=== PATIENT | male | born 1940 | race Caucasian/White ===

== ENCOUNTER → 2017-01-05 | Outpatient (CLI) | payer OTHER ==
[~2017-01-05] MED LIST: ALLO100T PO; ANT25 PO; BUME1TAB PO; BUME2TAB3 PO; CARV6.252 PO; CMD5 PO; CRD200 PO; CRG625 PO; FLUT0.0529 NAE; FLUT0.15 NAE; FRS/40 PO; GABA-112 PO; INSDGIPEN SC; INSUINJ14 SC; INSUINJ4 SQ; IPRA0.06 NAE; ISOS60TA25 PO; LEVO75TA5 PO; METO2.5T PO; NTRGSL/4 UT; NVLGI/PEN SC; POTA20TA16 PO; PRLSR20 PO; RCL25 PO; SIMV40TA4 PO; SPIR25TA PO; SPR25 PO; TRAM-10 PO; TRAZ50TA35 PO; WARF5TAB90 PO
[2017-01-05 13:14] LABS: HEMATOCRIT 48.1 % (42-52); MEAN CELL VOLUME 90.4 fL (80-100); MEAN CORPUSCULAR HEMOGLOBIN 29.3 pg (25-34); MEAN CORPUSCULAR HGB CONC 32.4 g/dl (32-36); RED BLOOD COUNT 5.32 M/uL (4.7-6.1); WHITE BLOOD COUNT 5.16 K/uL (4.8-10.8)
[2017-01-05 13:18] LABS: URINE APPEARANCE CLEAR (CLEAR); URINE BILIRUBIN NEG (NEG); URINE COLOR YELLOW; URINE NITRITE NEG (NEG); URINE SPECIFIC GRAVITY 1.003 (1.000-1.030); UROBILINOGEN NEG (NEG)
[2017-01-05 13:27] LABS: ESTIMATED AVERAGE GLUCOSE 154 mg/dl; HA1C FLAG Normal (Normal); MANUAL MICROSCOPIC REQUIRED? NO; REVIEW REQ? NO
[2017-01-05 13:31] LABS: BLOOD UREA NITROGEN 52 mg/dl (7-18); BUN/CREATININE RATIO 28.9 (10-20); CALCIUM 9.4 mg/dl (8.5-10.1); CARBON DIOXIDE 34 mmol/L (21-32); CHLORIDE 100 mmol/L (98-107); GLUCOSE 96 mg/dl (70-99); POTASSIUM 2.9 mmol/L (3.5-5.1); SODIUM 142 mmol/L (136-145)
[2017-01-05 13:33] LABS: PHOSPHORUS 2.4 mg/dl (2.5-4.9)
[2017-01-05 13:59] LABS: MEAN PLATELET VOLUME 10.1 fL (7.4-10.4); PLATELET COUNT 95 K/uL (130-400)
== END | disposition home or self-care (01) ==
LOC: C.LAB1850 11:30
PROVIDERS: ATTEND Internal Medicine Nephrology
DX: I50.22 Chronic systolic (congestive) heart failure (principal); E11.65 Type 2 diabetes mellitus with hyperglycemia; N18.3 Chronic kidney disease, stage 3 (moderate); E11.22 Type 2 diabetes mellitus with diabetic chronic kidney disease

== ENCOUNTER → 2017-01-12 | Outpatient (CLI) | payer OTHER ==
[2017-01-12 16:09] LABS: BLOOD UREA NITROGEN 51 mg/dl (7-18); BUN/CREATININE RATIO 24.3 (10-20); CALCIUM 9.1 mg/dl (8.5-10.1); CARBON DIOXIDE 35 mmol/L (21-32); CHLORIDE 97 mmol/L (98-107); GLUCOSE 176 mg/dl (70-99); MAGNESIUM 2.4 mg/dl (1.8-2.4); POTASSIUM 3.5 mmol/L (3.5-5.1); SODIUM 139 mmol/L (136-145)
== END | disposition home or self-care (01) ==
LOC: C.LAB1850 14:24
PROVIDERS: ATTEND Internal Medicine Nephrology
DX: E87.6 Hypokalemia (principal)

== ENCOUNTER → 2017-01-30 | Outpatient (CLI) | payer OTHER ==
[~2017-01-30] MED LIST changes: +AMIO200T4 PO; +AZIT-57 PO; +CALC0.2510 PO; +CEFD1CAP14 PO; +MECL1TAB42 PO; +POTA1POW PO; +PRDXLUD PO; +SIMV40TA2 PO
[2017-01-30 12:48] LABS: BLOOD UREA NITROGEN 56 mg/dl (7-18); BUN/CREATININE RATIO 25.4 (10-20); CALCIUM 9.1 mg/dl (8.5-10.1); CARBON DIOXIDE 35 mmol/L (21-32); CHLORIDE 102 mmol/L (98-107); GLUCOSE 81 mg/dl (70-99); POTASSIUM 3.2 mmol/L (3.5-5.1); SODIUM 143 mmol/L (136-145)
== END | disposition home or self-care (01) ==
LOC: C.LAB1850 10:36
PROVIDERS: ATTEND Physician Assistant
DX: I50.22 Chronic systolic (congestive) heart failure (principal); E11.65 Type 2 diabetes mellitus with hyperglycemia; N18.3 Chronic kidney disease, stage 3 (moderate)

== ENCOUNTER 2017-02-01 15:20 | Inpatient (IN) | payer OTHER ==
[~2017-02-01] VITALS: Ht 172.7 cm; Wt 91.4 kg
[~2017-02-01 15:20] MED LIST changes: -AMIO200T4 PO; -ANT25 PO; -AZIT-57 PO; -BUME2TAB3 PO; -CALC0.2510 PO; -CARV6.252 PO; -CEFD1CAP14 PO; -CMD5 PO; -FLUT0.15 NAE; -FRS/40 PO; -GABA-112 PO; -INSDGIPEN SC; -IPRA0.06 NAE; -ISOS60TA25 PO; -LEVO75TA5 PO; -MECL1TAB42 PO; -METO2.5T PO; -NTRGSL/4 UT; -NVLGI/PEN SC; -POTA1POW PO; -PRDXLUD PO; -RCL25 PO; -SIMV40TA2 PO; -SIMV40TA4 PO; -SPIR25TA PO; -SPR25 PO; -TRAM-10 PO; -TRAZ50TA35 PO
--- NOTE | 2017-02-01 15:52 | EMERGENCY ROOM VISIT NOTE ---
History Report prepared by Stephanie: Nena Sanabria Under the Supervision of: Dr. Rigoberto Ramirez M.D. First contact with patient: 15:30 Chief Complaint: SHORTNESS OF BREATH Stated Complaint: SOB,PT HAS PACEMAKER History of Present Illness The patient is a 76 year old male who presents to the Emergency Room with complaints of worsening shortness of breath for the past 4 days. The patient does not speak any Mongolian and the history is obtained from his daughter who translated at bedside. He has been on Lasix and Potassium for the past 4 days. Today his shortness of breath worsened. He reports swelling to his legs bilaterally, left greater than right. His abdomen feels bloated and swollen. He reports LLQ abdominal pain and chest pain. He states that his insides feel shaky. The patient rates his pain as an 8/10 in severity. He is on Coumadin. He denies cough or fever. He reports left-sided throat pain that has been going on for a long time. Source of History: patient, family (daughter), spouse/significant other Onset: 4 days ago Position: chest (respiratory ) Symptom Intensity: 8/10 Quality: other (shortness of breath) Timing: worsening Associated Symptoms: + abdominal pain, + chest pain, + sorethroat, No cough , No fevers Note: Pt notes bilateral leg swelling. Review of Systems See HPI for pertinent positives & negatives. A total of 10 systems reviewed and were otherwise negative. 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 Nurse's notes were reviewed and I agree with. Family History Diabetes mellitus FH: cancer Heart disease Hypertension Kidney disease Kidney stones Social History Smoking Status: Never Smoker Alcohol Use: none Drug Use: none Marital Status: Housing Status: lives with family Occupation Status: retired Current/Historical Medications Scheduled Allopurinol (Zyloprim), 100 MG PO BID Bumetanide (Bumex), 2 MG PO DAILY Carvedilol (Coreg), 2 TAB PO BID Fluticasone Propionate (Nasal) (Flonase Allergy Relief), 1 SPRAYS ALEX DAILY Furosemide (Lasix), 40 MG PO DAILY Insulin Aspart (Novolog Flexpen), 8 UNITS SC WM Insulin Glargine (Lantus Solostar), 15 UNITS SC HS Ipratropium [place] (Nasal) (Ipratropium [place]), 2 SPRAYS ALEX BID Isosorbide Mononitrate Ext Rel (Imdur Ext Rel), 60 MG PO QAM Levothyroxine Sodium (Levothyroxine Sodium), 75 MCG PO DAILY Metolazone (Zaroxolyn), 2.5 MG PO DAILY Potassium Ext Rel (Klor-Con), 60 MEQ PO DAILY Simvastatin (Zocor), 40 MG PO QPM Scheduled PRN Nitroglycerin (Nitrostat), 0.4 MG UT UD PRN for Chest Pain Allergies Coded Allergies: No Known Allergies (Verified , 08/30/16) Physical Exam Vital Signs Date Time Temp Pulse Resp B/P Pulse Ox O2 Delivery O2 Flow Rate FiO2 02/01/17 17:10 93 Nasal Cannula 2.5 02/01/17 17:08 60 20 110/71 79 Room Air 02/01/17 15:24 36.5 68 16 106/68 91 Room Air Physical Exam General: Well developed well nourished non-ill appearing older male in no acute distress, breathing comfortably on room air. Normal speech HEENT: Normal cephalic atraumatic. Pupils are equal round and reactive to light. Sclerae anicteric. Extraocular movements are intact. Oropharynx is pink with moist mucous membranes. No swelling of the mouth lips or tongue. Neck: Supple with a midline trachea. No meningeal signs or stiffness, no JVD or bruits. No Stridor. Chest: Clear to auscultation bilaterally. No wheezes or rhonchi. No increased work of breathing. Heart: regular rate and rhythm. Abdomen: Soft nontender, nondistended without rebound guarding or rigidity. Extremities: He has bilateral pitting edema of the lower extremities, left greater than right. No cyanosis clubbing. No calf tenderness. Spine/Back. Non tender to palpation. No CVA tenderness Skin: Good turgor without rashes. Neurologic exam: Cranial nerves two through 12 are intact. Motor and sensation are intact and symmetrical throughout. Medical Decision & Procedures ER Provider Diagnostic Interpretation: Radiology results as stated below per my review and radiologist interpretation: CHEST ONE VIEW PORTABLE HISTORY: Short of breath. CHEST PAIN COMPARISON: Chest 09/02/2016. FINDINGS: The heart remains enlarged. Mild pulmonary edema and trace bilateral pleural effusions are again noted. Patchy bibasilar densities may be due to the layering pleural fluid or areas of consolidation. There is a left-sided pacemaker/defibrillator. No pneumothorax. IMPRESSION: Similar appearance to the cardiomegaly, mild interstitial pulmonary edema, trace bilateral pleural effusions. Electronically signed by: Robert Gamez M.D. 02/01/2017 4:21 PM Dictated Date/Time: 02/01/2017 4:20 PM Laboratory Results 02/01/17 16:35 Red Blood Count 4.93, Mean Corpuscular Volume 88.6, Mean Corpuscular Hemoglobin 28.8, Mean Corpuscular Hemoglobin Concent 32.5, Mean Platelet Volume 9.1, Neutrophils (%) (Auto) 66.0, Lymphocytes (%) (Auto) 16.6, Monocytes (%) (Auto) 14.3, Eosinophils (%) (Auto) 2.9, Basophils (%) (Auto) 0.2, Neutrophils # (Auto ) 3.19, Lymphocytes # (Auto) 0.80, Monocytes # (Auto) 0.69, Eosinophils # (Auto ) 0.14, Basophils # (Auto) 0.01 02/01/17 16:35 Test 02/01/17 16:35 02/01/17 16:43 White Blood Count 4.83 K/uL (4.8-10.8) Red Blood Count 4.93 M/uL (4.7-6.1) Hemoglobin 14.2 g/dL (14.0-18.0) Hematocrit 43.7 % (42-52) Mean Corpuscular Volume 88.6 fL (80-100) Mean Corpuscular Hemoglobin 28.8 pg (25-34) Mean Corpuscular Hemoglobin Concent 32.5 g/dl (32-36) Platelet Count 93 K/uL (130-400) Mean Platelet Volume 9.1 fL (7.4-10.4) Neutrophils (%) (Auto) 66.0 % Lymphocytes (%) (Auto) 16.6 % Monocytes (%) (Auto) 14.3 % Eosinophils (%) (Auto) 2.9 % Basophils (%) (Auto) 0.2 % Neutrophils # (Auto) 3.19 K/uL (1.4-6.5) Lymphocytes # (Auto) 0.80 K/uL (1.2-3.4) Monocytes # (Auto) 0.69 K/uL (0.11-0.59) Eosinophils # (Auto) 0.14 K/uL (0-0.5) Basophils # (Auto) 0.01 K/uL (0-0.2) RDW Standard Deviation 54.5 fL (36.4-46.3) RDW Coefficient of Variation 16.8 % (11.5-14.5) Immature Granulocyte % (Auto) 0.0 % Immature Granulocyte # (Auto) 0.00 K/uL (0.00-0.02) Prothrombin Time 29.7 SECONDS (9.0-12.0) Prothromb Time International Ratio 2.7 (0.9-1.1) Activated Partial Thromboplast Time 32.3 SECONDS (21.0-31.0) Partial Thromboplastin Ratio 1.2 Anion Gap 7.0 mmol/L (3-11) Est Creatinine Clear Calc Drug Dose 33.6 ml/min Estimated GFR () 33.0 Estimated GFR (Non- 28.5 BUN/Creatinine Ratio 21.8 (10-20) Calcium Level 8.8 mg/dl (8.5-10.1) Total Bilirubin 1.8 mg/dl (0.2-1) Direct Bilirubin 0.6 mg/dl (0-0.2) Aspartate Amino Transf (AST/SGOT) 39 U/L (15-37) Alanine Aminotransferase (ALT/SGPT) 42 U/L (12-78) Alkaline Phosphatase 95 U/L (45-117) Total Creatine Kinase 308 U/L (39-308) Creatine Kinase MB 3.5 ng/ml (0.5-3.6) Creatine Kinase MB Ratio 1.1 (0-3.0) Total Protein 6.4 gm/dl (6.4-8.2) Albumin 2.9 gm/dl (3.4-5.0) Lipase 189 U/L (73-393) Thyroid Stimulating Hormone (TSH) 1.070 uIu/ml (0.300-4.500) Bedside Troponin I 0.040 ng/ml (0-0.045) ZX-Fni-H-Type Natriuretic Peptide 3062 pg/ml (0-900) Laboratory studies as stated above per my review. Medications Administered ECG Indication: SOB/dyspnea Rate (beats per minute): 66 Rhythm: other (ventricular paced) Findings: PVC (frequent), no acute ischemic change Comparison ECG Date: 09/02/2016 Change: no significant change ED Course 1531: Past medical records reviewed. The patient was evaluated in room B5, and a complete history and physical examination were performed. 1633: I reassessed the patient and he is comfortable and getting his blood work now. 1729: I reassessed the patient at this time. He is doing well. I discussed the results and treatment plan with the patient's daughter. I answered all pertaining questions that she had. She expressed understanding and verbalized agreement. 1743: I spoke with Dr. Dobson. We discussed the patients results and treatment plan. The patient will be evaluated by the [facility] for further management. Medical Decision Differential diagnoses includes CHF, acute coronary syndrome, renal failure, electrolyte or metabolic abnormality, DVT/PE. This patient comes in as described above. He was placed in room B5. Here for treatment and evaluation of shortness of breath. He has also had lower extremity edema and they've increased his diuretics recently. He has have renal insufficiency related to this. He looks well on exam. he does have lower extremity edema left greater than right. He is on blood thinners as well apparently with Coumadin. IV access established, chest x-ray, EKG , and multiple blood tests was obtained. EKG shows a paced rhythm. Chest x-ray shows chronic congestive heart failure changes. EKG shows a paced rhythm but there is no acute ischemic changes. There is no elevation of troponin. There is no acute electrode or metabolic abnormalities. He does have chronic renal insufficiency. He has been taking multiple diuretics including Lasix and Bumex and Zaroxolyn. Despite this, he has not been getting better. Additionally I think that the medications need to be adjusted and have further treatment for his congestive heart failure. I have consulted Dr. Dobson, who saw the patient, in the ER and will admit him for these measures Consults Time Called: 1739 Consulting Physician: Dr. Dobson Returned Call: [phone] Dobson. We discussed the patients results and treatment plan. The patient will be evaluated by the [facility] for further management. Impression Primary Impression: CHF (congestive heart failure) Scribe Attestation The scribe's documentation has been prepared under my direction and personally reviewed by me in its entirety. I confirm that the note above accurately reflects all work, treatment, procedures, and medical decision making performed by me. Departure Information Dispostion Being Evaluated By Hospitalist Referrals Pro,Noel Palomo M.D. (PCP) Patient Instructions My [facility] Problem Qualifiers Primary Impression: CHF (congestive heart failure) Congestive heart failure type: unspecified congestive heart failure type Congestive heart failure chronicity: unspecified congestive heart failure chronicity Qualified Codes: I50.9 - Heart failure, unspecified
[2017-02-01] MEDS ORDERED: CARV6.252 PO (15:57)
[2017-02-01] MEDS ORDERED: BUME2TAB3 PO (15:57)
[2017-02-01] MEDS ORDERED: FRS/40 PO (15:57)
[2017-02-01] MEDS ORDERED: FLUT0.15 NAE (15:57)
[2017-02-01] MEDS ORDERED: METO2.5T PO (15:57)
--- NOTE | 2017-02-01 16:24 | DIAGNOSTIC IMAGING REPORT ---
CHEST ONE VIEW PORTABLE HISTORY: Short of breath. CHEST PAIN COMPARISON: Chest 09/02/2016. FINDINGS: The heart remains enlarged. Mild pulmonary edema and trace bilateral pleural effusions are again noted. Patchy bibasilar densities may be due to the layering pleural fluid or areas of consolidation. There is a left-sided pacemaker/defibrillator. No pneumothorax. IMPRESSION: Similar appearance to the cardiomegaly, mild interstitial pulmonary edema, trace bilateral pleural effusions. Electronically signed by: Robert Gamez M.D. 02/01/2017 4:21 PM Dictated Date/Time: 02/01/2017 4:20 PM
[2017-02-01 17:01] LABS: HEMATOCRIT 43.7 % (42-52); INR 2.7 (0.9-1.1); MEAN CELL VOLUME 88.6 fL (80-100); MEAN CORPUSCULAR HEMOGLOBIN 28.8 pg (25-34); MEAN CORPUSCULAR HGB CONC 32.5 g/dl (32-36); PARTIAL THROMBOPLASTIN RATIO 1.2; PROTHROMBIN TIME (PATIENT) 29.7 SECONDS (9.0-12.0); RED BLOOD COUNT 4.93 M/uL (4.7-6.1); WHITE BLOOD COUNT 4.83 K/uL (4.8-10.8)
[2017-02-01 17:04] LABS: POINT OF CARE TROPONIN I 0.04 ng/ml (0-0.045)
[2017-02-01 17:12] LABS: BASO % 0.2 %; BASO ABS # 0.01 K/uL (0-0.2); BUN/CREATININE RATIO 21.8 (10-20); CALCIUM 8.8 mg/dl (8.5-10.1); COMPLETE YES; CREATININE 2.2 mg/dl (0.60-1.40); EOS % 2.9 %; LYMPH % 16.6 %; MEAN PLATELET VOLUME 9.1 fL (7.4-10.4); MONO % 14.3 %; PLATELET COUNT 93 K/uL (130-400); POTASSIUM 3.3 mmol/L (3.5-5.1)
[2017-02-01 17:24] LABS: CKMB/CK RATIO 1.1 (0-3.0); THYROID STIMULATING HORMONE 1.07 uIu/ml (0.300-4.500)
[2017-02-01] MEDS ORDERED: NITROGLYCERIN 0.4 MG SL PER TAB CHARGE UT PRN (18:00)
[2017-02-01] MEDS ORDERED: PREMIXED WATER IV STA (18:07)
[2017-02-01] MEDS ORDERED: WTR IV STA (18:07)
[2017-02-01] MEDS ORDERED: POTASSIUM CHLR IV STA (18:07)
[2017-02-01] MEDS ORDERED: MAGNESIUM SULFATE 1GM / D5W 1 GM in PREMIXED IN D5W 100 ML IV ONE (18:15)
[2017-02-01] MEDS ORDERED: MAGNESIUM HYDROXIDE SUSP 30 ML UDC PO PRN (18:15)
[2017-02-01] MEDS ORDERED: POLYETHYLENE (MIRALAX) 17 GM PACK PO PRN (18:15)
[2017-02-01] MEDS ORDERED: NITROGLYCERIN 0.4 MG SL PER TAB CHARGE SL PRN (18:15)
[2017-02-01] MEDS ORDERED: ONDANSETRON INJ 2 MG/ML 2 ML VIAL IV PRN (18:15)
[2017-02-01] MEDS ORDERED: ALUMINUM/MAGNESIUM/SIMETH (MAALOX MAX) 30 ML UDC PO PRN (18:15)
[2017-02-01] MEDS ORDERED: POTASSIUM CHLORIDE 10 MEQ / 100ML WTR IV ONE (18:24)
[2017-02-01] MEDS ORDERED: MAGNESIUM SULFATE 1GM / D5W 1 GM BAG ONE (18:24)
--- NOTE | 2017-02-01 18:58 | HISTORY & PHYSICAL EXAMINATION ---
DATE OF ADMISSION: 02/01/2017 CHIEF COMPLAINT: Shortness of breath. ADMITTING DIAGNOSIS: Acute systolic heart failure. HISTORY OF PRESENT ILLNESS: Mr. Davidson is a 76-year-old male who suffers from chronic systolic heart failure with an EF of 20%-25%. The patient was seen at [facility] ago where he was given Lasix, sliding scale in addition to his significant Bumex and metolazone dosing. The patient did not improve, comes in with chest pain, shortness of breath, orthopnea and abdominal girth fullness. He feels his weight is up 5 pounds despite escalation of his diuretics at home. With evaluation in the ER, his exam consistent with acute on chronic systolic heart failure. PAST MEDICAL HISTORY: As above with coronary stents, diabetes, GERD, hypertension, ventral abdominal hernia, permanent pacemaker, previous renal stones and hypothyroidism. MEDICATIONS: Bumex 3 mg a day, Zaroxolyn 2.5 two times a week, amiodarone 200 a day, Coreg 6.25 b.i.d., allopurinol 100 b.i.d., Flonase as needed, insulin regular 8 units with meals, Lantus 15 at bedtime, isosorbide mononitrate extended release 60 mg a day, Synthroid 75 mcg a day, potassium 40 mEq b.i.d., warfarin 5 a day, calcitriol 0.25 once a day. SOCIAL HISTORY: Reportedly, the patient does not smoke now, he had smoked once in the distant past but he is [place] and his language is difficult. He does not drink alcohol. FAMILY HISTORY: Positive for diabetes, cancer, heart disease and hypertension. REVIEW OF SYSTEMS: Also positive for constipation with hard stools, decreased urinary output of dark urine. Otherwise, no other symptoms. Ten systems were reviewed and are negative unless listed in this document. PHYSICAL EXAMINATION: VITAL SIGNS: Temperature 36.5, pulse 60, respirations 20, BP 150/71, O2 sat was 79 on room air, he is 93 on 2 liters. HEENT: PERRL, EOMI. Oropharynx clear. NECK: Shows JVD with 4-4 cm with positive HJR. Trachea is midline. HEART: Distant, regular. Systolic murmur at the right upper sternal boarder. He has muffled heart tones. LUNGS: Have bibasilar crackles half the way up with reasonable air movement. ABDOMEN: Normoactive bowel sounds, soft. He is minorly uncomfortable to the left side which may be his constipation. He has bruised in his abdomen from his insulin injections. EXTREMITIES: With 2+ edema to the knees. 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 His cranial nerves are intact. Upper and lower extremities strength is 5/5 and equal bilaterally. SKIN: With bruises. LABORATORY DATA: White count of 4.8, H\T\H 14 and 43, platelet count 93. BUN and creatinine are 48 and 2.2, glucose 146, potassium 3.3, magnesium was not checked. Bilirubin is elevated at 1.8, but it is slightly always elevated and INR 2.7. His chest x-ray shows cardiomegaly, interstitial pulmonary edema and pacemaker present. Trace pleural effusions. His EKG is paced rhythm. ASSESSMENT: This 76-year-old male with acute on chronic systolic heart failure likely from dietary noncompliance as per the office notes of the [facility]. PLAN: The patient will be in our telemetry unit. We will increase Bumex at 2 mg IV b.i.d. with 1 dose of Zaroxolyn in the morning, maintaining amiodarone 200 and Coreg a 6.25. We will employ daily weights and a low sodium diet with cardiology consultation. His thrombocytopenia prevents chemical prevention for deep venous thrombosis. Therefore, we will use sequential compression devices. Regarding his diabetes, he will be kept on his usual regimen with a diabetic diet and have a loose sliding scale to assist if his glucoses go high. Regarding his anticoagulation, I am assuming this is for atrial fibrillation or could be for his cardiomyopathy, warfarin will be maintained at 5 and INR is to be followed. For his constipation, he will be offered MiraLax p.r.n. and Senokot scheduled. The patient is a full code.
[2017-02-01] MEDS ORDERED: GLUCAGON FOR INJ 1 MG VIAL SQ PRN (19:30)
[2017-02-01] MEDS ORDERED: GLUCOSE 10 TABS/TUBE PO PRN (19:30)
[2017-02-01] MEDS ORDERED: DEXTROSE 50% 50 ML SYR IV PRN (19:30)
[2017-02-01] MEDS ORDERED: GLUCOSE 40% GEL 15 GM TUBE PO PRN (19:30)
[2017-02-01 20:30] VITALS: BP 107/76; PULSE 67; TEMP 36.4; O2SAT 97
[2017-02-01 20:50] VITALS: BP 107/76; PULSE 67; TEMP 36.4; O2SAT 97; Ht 172.7 cm; Wt 91.4 kg
[2017-02-01] MEDS ORDERED: HEPARIN SOD 5000 UNIT/0.5 ML CARP SQ SCH (21:00)
[2017-02-01] MEDS: SENNA 8.6 MG TAB PO SCH (21:37)
[2017-02-01] MEDS: POTASSIUM CHLORIDE 20 MEQ TABCR PO SCH (21:38)
[2017-02-01] MEDS: SIMVASTATIN 40 MG TAB PO SCH (21:38)
[2017-02-01] MEDS: ALLOPURINOL 100 MG TAB PO SCH (21:38)
[2017-02-01 21:41] VITALS: BP 105/58; PULSE 60
[2017-02-01] MEDS: INSULIN GLARGINE SOLOSTAR 100 UNITS/ML 3 ML PEN SC SCH (21:43)
[2017-02-01] MEDS: CARVEDILOL 12.5 MG TAB PO SCH (21:43)
[2017-02-01] MEDS: INSULIN ASPART 100 UNITS/ML 3 ML PEN SC SCH (21:43)
[2017-02-01] MEDS: IPRATROPIUM BROMIDE NASAL SPRAY 0.06% 15ML NAE SCH (21:44)
[2017-02-02] VITALS (11 sets, daily range): BP systolic 93–117; BP diastolic 54–80; PULSE 58–77; TEMP 36.5–37.1; O2SAT 90–98
[2017-02-02] MEDS: LEVOTHYROXINE 75 MCG TAB PO SCH (05:48)
[2017-02-02] MEDS ORDERED: MoRPHine SULFATE 4 MG/ML 1 ML CARP\\VIAL IV STA (05:55)
[2017-02-02] MEDS ORDERED: MoRPHine SULFATE 4 MG/ML 1 ML CARP\\VIAL ONE (06:03)
[2017-02-02] MEDS: INSULIN ASPART 100 UNITS/ML 3 ML PEN SC SCH ×7 (06:30→20:57)
[2017-02-02] MEDS: SPIRONOLACTONE 25 MG TAB PO SCH (07:50)
[2017-02-02] MEDS: CARVEDILOL 12.5 MG TAB PO SCH ×2 (07:51→20:56)
[2017-02-02] MEDS: ISOSORBIDE MONONITRATE 60 MG TABCR PO SCH (07:51)
[2017-02-02] MEDS: POTASSIUM CHLORIDE 20 MEQ TABCR PO SCH ×2 (07:52→21:25)
[2017-02-02] MEDS: ALLOPURINOL 100 MG TAB PO SCH ×2 (07:53→21:24)
[2017-02-02] MEDS: CALCITRIOL 0.25 MCG CAP PO SCH (07:53)
[2017-02-02] MEDS: SENNA 8.6 MG TAB PO SCH ×2 (07:53→21:26)
[2017-02-02] MEDS: IPRATROPIUM BROMIDE NASAL SPRAY 0.06% 15ML NAE SCH ×2 (07:54→20:56)
[2017-02-02] MEDS: FLUTICASONE PROPIONATE NA SPR 16 GM BTL NAE SCH (07:55)
[2017-02-02] MEDS ORDERED: METOLAZONE 2.5 MG TAB PO SCH (08:00)
[2017-02-02] MEDS ORDERED: PNEUMOCOCCAL POLYSACCHARIDES 25 MCG/0.5 ML VIAL/SYR IM. ONE (09:00)
[2017-02-02] MEDS ORDERED: POTASSIUM CHLORIDE 20 MEQ TABCR PO SCH (09:00)
[2017-02-02] MEDS ORDERED: PNEUMOCOCCAL ADMINISTRATION CHARGE ONE (09:00)
[2017-02-02] MEDS: BUMETANIDE IV 2 MG in SYRINGE 0 ML IV SCH ×2 (09:59→17:46)
--- NOTE | 2017-02-02 10:10 | Clinical Documentation Query ---
JAMES Brewer : CLINICAL DOCUMENTATION QUERY Patient is a 76 year old male admitted for evaluation and treatment of acute on chronic systolic CHF. Admission BUN, creatinine, and estimated GFR were 51 mg/dl, 2.10 mg/dl, and 30 ml/min. Estimated GFR range from 08/15/16 to present of 21-39 ml/min. No mention made of these abnormalities in serum chemistries. Please clarify as clinically appropriate. Thank you In your clinical opinion is this patient being managed for: ( X ) Chronic kidney disease, stage 3-4 ( ) Other explanation of clinical findings (Please Explain) ( ) Unable to determine (Please Define) ( ) Need to Discuss ( ) Not Agree The medical record reflects the following clinical findings, treatment, and risk factors. Clinical Indicators: As above Treatment: Monitoring with serial chemistries. Risk Factors: Age, hypertension, chronic systolic CHF Please clarify and document your clinical opinion in the progress notes and discharge summary. Terms such as "probable", "suspected", "likely", "questionable", "possible", or "still to be ruled out" are acceptable. IF IN AGREEMENT, YOU MUST DOCUMENT ABOVE DIAGNOSTIC STATEMENT IN DAILY PROGRESS NOTES AND DISCHARGE SUMMARY. This document is not part of the patient's record. Thank You, Rigoberto Lan, ZACH [phone]
[2017-02-02 10:25] LABS: HEMATOCRIT 46.4 % (42-52); MEAN CELL VOLUME 89.9 fL (80-100); MEAN CORPUSCULAR HEMOGLOBIN 28.9 pg (25-34); MEAN CORPUSCULAR HGB CONC 32.1 g/dl (32-36); RED BLOOD COUNT 5.16 M/uL (4.7-6.1); WHITE BLOOD COUNT 7.43 K/uL (4.8-10.8)
[2017-02-02 10:32] LABS: MEAN PLATELET VOLUME 9.5 fL (7.4-10.4); PLATELET COUNT 97 K/uL (130-400)
[2017-02-02 10:33] LABS: INR 2.2 (0.9-1.1); PROTHROMBIN TIME (PATIENT) 24.7 SECONDS (9.0-12.0)
[2017-02-02 10:49] LABS: BUN/CREATININE RATIO 22.9 (10-20); CREATININE 1.9 mg/dl (0.60-1.40); MAGNESIUM 2.4 mg/dl (1.8-2.4); POTASSIUM 3.7 mmol/L (3.5-5.1)
[2017-02-02] MEDS ORDERED: POLYETHYLENE (MIRALAX) 17 GM PACK PO ONE (11:15)
--- NOTE | 2017-02-02 14:51 | ECHOCARDIOGRAM REPORT ---
*NOTICE TO RECEIVING LIBERTARIAN AGENCY This information is strictly Confidential and protected under [place] law. [place] law prohibits you from making any further disclosure of this information unless further disclosure is expressly permitted by the written consent of the person to whom it pertains or is authorized by law. A general authorization for the release of medical or other information is not sufficient for this purpose. Hospital accepts no responsibility if the information is made available to any other person, INCLUDING THE PATIENT. Interpretation Summary * Name: DAVID REGALADO Study Date: 02/02/2017 09:01 AM BP: 107/22 mmHg * [facility]\S\[id number]\S\1 HR: 66 * : 1940 (M/d/yyy) Gender: Male Height: 67 in * Age: 76 yrs Ethnicity: [place] Weight: 218 lb * Ordering Physician: Sandra Chavira * Referring Physician: Self, Referred * Performed By: Shwetha Bean RCS * * Reason For Study: CHF * BSA: 2.1 m2 * Severe left ventricular systolic dysfunction. * Mild to moderate right ventricular systolic dysfunction. * Biatrial dilatation. * Moderate to severe mitral regurgitation. * Mild to moderate tricuspid regurgitation. * Mild pulmonic regurgitation. * Moderate pulmonary hypertension. * Mild aortic stenosis. * Comapred to an echo of 09/01/2016 there is no significant change in the ventricular function. * The valvular regurgitation is more prominent on current echo. * -- Conclusions -- * Aortic valve sclerosis moderate, without significant aortic valvular stenosis. Procedure Details * Left Ventricle Ejection Fraction = 20-25%. Left ventricular systolic function is severely reduced. There is severe global hypokinesis of the left ventricle. Septal motion is consistent with conduction abnormality. * Right Ventricle The right ventricle is moderately dilated. There is a pacemaker lead in the right ventricle. The right ventricular systolic function is mild to moderately reduced. * Atria The left atrium is severely dilated. The right atrium is moderately dilated. No ASD detected; PFO is not assessed. * Mitral Valve The mitral valve is normal. There is no mitral valve stenosis. There is moderate to severe mitral regurgitation. * Tricuspid Valve The tricuspid valve is normal. There is no tricuspid stenosis. There is mild to moderate tricuspid regurgitation. Right ventricular systolic pressure is elevated at 40-50mmHg. * Aortic Valve Aortic valve sclerosis moderate, without significant aortic valvular stenosis. Mild valvular aortic stenosis. Dimensionless index 0.55. No aortic regurgitation is present. * Pulmonic Valve The pulmonary valve is inadequately visualized, but the Doppler data is adequate for interpretation. There is no pulmonic valvular stenosis. Mild pulmonic valvular regurgitation. * Great Vessels The aortic root is normal size. Normal inferior vena cava diameter and respiratory variation suggests normal central venous pressure. * * MMode 2D Measurements and Calculations * IVSd 1.2 cm * IVSs 1.4 cm * * LVIDd 6.7 cm * LVIDs 6.0 cm * LVPWd 1.3 cm * LVPWs 1.6 cm * * IVS/LVPW 0.93 * FS 10.2 % * EDV(Teich) 230.6 ml * ESV(Teich) 180.5 ml * EF(Teich) 21.7 % * * EDV(cubed) 299.5 ml * ESV(cubed) 216.8 ml * EF(cubed) 27.6 % * % IVS thick 11.4 % * % LVPW thick 21.9 % * * LV mass(C)d 403.8 grams * LV mass(C)dI 192.5 grams/m\S\2 * LV mass(C)s 419.5 grams * LV mass(C)sI 200.0 grams/m\S\2 * * CO(Teich) 3.2 l/min * CI(Teich) 1.5 l/min/m\S\2 * SV(Teich) 50.1 ml * SI(Teich) 23.9 ml/m\S\2 * CO(cubed) 5.3 l/min * CI(cubed) 2.5 l/min/m\S\2 * SV(cubed) 82.7 ml * SI(cubed) 39.4 ml/m\S\2 * * ACS 0.66 cm * * LVOT diam 2.3 cm * LVOT area 4.3 cm\S\2 * * LVAd ap4 56.4 cm\S\2 * LVLd ap4 11.0 cm * EDV(MOD-sp4) 241.0 ml * LVAs ap4 46.5 cm\S\2 * LVLs ap4 10.1 cm * ESV(MOD-sp4) 184.0 ml * EF(MOD-sp4) 23.7 % * * LVAd ap2 53.4 cm\S\2 * LVLd ap2 10.8 cm * EDV(MOD-sp2) 222.0 ml * LVAs ap2 44.2 cm\S\2 * LVLs ap2 10.2 cm * ESV(MOD-sp2) 158.0 ml * EF(MOD-sp2) 28.8 % * * CO(MOD-sp4) 3.6 l/min * CI(MOD-sp4) 1.7 l/min/m\S\2 * SV(MOD-sp4) 57.0 ml * SI(MOD-sp4) 27.2 ml/m\S\2 * * CO(MOD-sp2) 4.1 l/min * CI(MOD-sp2) 2.0 l/min/m\S\2 * SV(MOD-sp2) 64.0 ml * SI(MOD-sp2) 30.5 ml/m\S\2 * * * Doppler Measurements and Calculations * MV E max ban 113.0 cm/sec * * MV P1/2t max ban 130.3 cm/sec * MV P1/2t 57.2 msec * MVA(P1/2t) 3.8 cm\S\2 * MV dec slope 667.1 cm/sec\S\2 * MV dec time 0.17 sec * * Ao V2 max 182.4 cm/sec * Ao max PG 13.3 mmHg * Ao max PG (full) 9.2 mmHg * JASON(V,A) 2.4 cm\S\2 * JASON(V,D) 2.4 cm\S\2 * * LV V1 max PG 4.1 mmHg * * LV V1 max 101.2 cm/sec * * MR max ban 397.6 cm/sec * MR max PG 63.2 mmHg * * PA V2 max 82.7 cm/sec * PA max PG 2.7 mmHg * * PI max ban 222.6 cm/sec * PI max PG 19.8 mmHg * PI dec slope 112.4 cm/sec\S\2 * PI P1/2t 580.3 msec * * TR max ban 301.3 cm/sec * * * * *
--- NOTE | 2017-02-02 14:53 | CARDIOLOGY CONSULTATION REPORT ---
DATE OF CONSULTATION: 02/02/2017 REASON FOR CONSULTATION: 1. Acute decompensated systolic CHF. 2. Cardiomyopathy status post single chamber AICD. 3. CAD. HISTORY OF PRESENT ILLNESS: Mr. Davidson is a 76-year-old, predominantly Belizean speaking male with a history of longstanding CAD s/p LAD stent x 2 remotely, Cardiomyopathy with an LVEF of 20-25%, s/p single chamber AICD placement 02/20/2011, global hypokinesis of the left ventricle, Chronic Atrial Fibrillation (rate controlled and chronically on Coumadin), Hypertension, Dyslipidemia, moderate MR, type 2 diabetes mellitus, chronic kidney disease, chronic Systolic CHF, and a history of V tach/V fib (which responded secondary to AICD shock) who was admitted acutely on 02/01/2017, complaining of progressive shortness of breath, orthopnea, abdominal bloating and a 5-pound non-intentional weight gain over the preceding 4-5 days. This was despite the use of oral diuretics. The patient is currently being seen in the echo lab where he is getting his echocardiogram done. He remains short of breath and his abdomen feels bloated. He denies any chest pain at this time. He denies any angina pectoris. Thus far, his I&Os show positive fluid balance but his body weight is down 2.2 kg since admission. The patient offers no other complaints. MEDICATIONS: 1. Imdur 60 mg daily. 2. Bumex 2 mg IV b.i.d. 3. Spironolactone 25 mg each morning. 4. Calcitriol 0.25 mcg daily. 5. Fluticasone nasal spray, 2 sprays in each nostril daily. 6. Levothyroxine 75 mcg daily. 7. NovoLog sliding scale insulin. 8. Allopurinol 100 mg b.i.d. 9. Carvedilol 12.5 mg b.i.d. 10. Lantus insulin 15 units subcutaneous injection each evening. 11. Zocor 40 mg daily. 12. Atrovent nasal spray 2 sprays in each nostril b.i.d. 13. KCl 40 mEq b.i.d. 14. Senokot 17.2 mg b.i.d. 15. Tylenol p.r.n. 16. Maalox Max p.r.n. 17. Milk of magnesia p.r.n. 18. Zofran 4 mg IV q. 6 hours p.r.n. for nausea. 19. MiraLax p.r.n. 20. Nitrostat 0.4 mg sublingually p.r.n. PAST MEDICAL HISTORY: 1. Cardiomyopathy with an LVEF of 20-25%. 2. Chronic systolic CHF. 3. CAD s/p LAD stents x 2 4. Hypertension. 5. Dyslipidemia. 6. Chronic atrial fibrillation (rate controlled and typically on Coumadin, but Coumadin is currently held). 7. Type 2 diabetes mellitus. 8. Chronic kidney disease. 9. History of hypokalemia. 10. History of syncope, secondary to V tach/V fib. 11. Moderate MR. SOCIAL HISTORY: The patient is and lives with his in [place], [place]. He does not use tobacco or tobacco products. Does not drink alcohol. FAMILY HISTORY: Significant for type 2 diabetes mellitus, heart disease, cancer, and hypertension. PHYSICAL EXAMINATION: VITAL SIGNS: Temperature is 36.6 degree Celsius, pulse is 60 and regular, respiratory rate 16 and unlabored, blood pressure is 108/69 and SPO2 is 95% on 4 liters of oxygen via nasal cannula. I&Os suggest a positive fluid balance but his body weight is down 2.2 kg from admission. GENERAL: The patient is in no acute distress. HEENT: Head is atraumatic, normocephalic. EOMs intact. Sclerae are anicteric. Facies symmetric. No perioral cyanosis. Mucous membranes are moist. NECK: Without thyromegaly or adenopathy. Jugular venous pressure is elevated, almost to the angle of the jaw. CHEST AND LUNGS: Are with bibasilar crackles, approximately one-third of the way up to lung galo. CARDIOVASCULAR: S1 and S2 are regular, distant, with a grade 1/6 systolic murmur at the right upper sternal border. No diastolic murmur is appreciated. No obvious gallops or rubs. PMI is laterally displaced, diffuse and rolling. No abdominal, aortic or renal bruits. ABDOMINAL EXAMINATION: Abdomen distended. Bowel sounds present. EXTREMITIES: With +2 pitting edema up to proximal one-third of the pretibial surface. Intact posterior tibial and radial pulses bilaterally. NEUROLOGIC EXAMINATION: The patient is awake, alert, and oriented. Pleasant and cooperative. Answers questions appropriately, but speaks broken Finnish for the most past. Speech is clear. Normal movement in bilateral upper and lower extremities. Echocardiogram has been done. Reporting Specialist's interpretation is pending. EKGs thus far have shown an underlying atrial fibrillation with ventricular paced rhythm, occasional premature ventricular contractions. QRS duration is approximately 200 msec, very wide LBBB. Telemetry monitoring shows predominantly a ventricular paced rhythm with occasional ventricular ectopy/PVCs. LABORATORY DATA: White blood cell count 7.43. Hemoglobin 14.9 g/dL, hematocrit 46.4%. Platelet count is 97,000. INR is pending. BMP pending. Serum magnesium level pending. Total CK on admission 308 units per liter with a CK-MB of 3.5 ng/mL. Troponin I level of 0.051 ng/mL. ProBNP 3062 pg/mL. ASSESSMENT: 1. Acute on Chronic Systolic CHF. 2. Severe Cardiomyopathy -- LVEF 20%-25%, status post single chamber AICD placement in 2010. 3. Wide LBBB -- QRS duration 200 msec, will likely benefit by upgrading to biventricular device. 4. Chronic kidney disease, current creatinine level is at baseline. 5. Coronary Artery Disease, status post LAD stent x2 remotely. 6. Hypertension. 7. Dyslipidemia. 8. Chronic Atrial Fibrillation, rate controlled and typically on Coumadin. 9. Diagnoses as mentioned above. PLAN: 1. Continue IV Bumex. 2. Continue Spironolactone. 3. Continue Coreg 12.5 mg b.i.d. 4. Continue long-term statin. 5. Closely monitor daily I&Os, body weights. 6. I have discussed an upgrade to a biventricular device, which would provide a mechanical advantage of having both ventricles contract at the same time. I will discuss this further with his daughter when she is available to discuss this. 7. Continue to monitor daily laboratories. 8. If patient and daughter agree to proceed with upgrade to BiV device, patient will be made n.p.o. after midnight and we will likely put a coronary sinus lead in tomorrow. 9. We will continue to follow. ADDENDUM: I spoke to patient's daughter (who translated to [place]an) and about upgrade to Bi-Ventricular AICD for resynchronization purposes. Family and patient agree to proceed. Patient will be made NPO aftyer midnight except for medications. Dr. Anderson will perform the procedure. ISIDRO
--- NOTE | 2017-02-02 19:41 | Progress Note ---
Subjective Date of Service: Feb 02, 2017. Subjective Pt evaluation today including: conversation w/ patient, conversation w/ family (daughter at bedside), physical exam, chart review, lab review, review of studies (echo, cxr), review of inpatient medication list Pain: has had multiple episodes of left-sided CP over the past week PO Intake: normal Voiding: no voiding problems telemetry with paced rhythm overnight he apparently had an episode of left-sided chest pain this AM relieved with nitro during the event he was paced on tele and EKG showed same findings he has had no pain since he mentions exertional sob and chest pain (discrete episodes) recently at home but also mentions ?chest pain at rest with laying down? however, he also mentions orthopnea when he is describing his chest pain when he is laying in the bed denies pleuritic pain denies cough Problem List Medical Problems: (1) Acute renal insufficiency Status: Acute (2) Cellulitis, abdominal wall Status: Acute (3) Chest pain Status: Acute (4) CHF (congestive heart failure) Status: Acute (5) Dehydration Status: Acute (6) Dyspnea Status: Acute (7) Elevated d-dimer Status: Acute (8) Elevated troponin Status: Acute (9) Elevated troponin Status: Acute (10) Fever Status: Acute (11) Headache Status: Acute (12) Hypertension Status: Acute (13) Pneumonia Status: Acute (14) Renal insufficiency Status: Acute (15) Syncope Status: Acute (16) Vertigo Status: Acute Review of Systems Constitutional: No fever Respiratory: + dyspnea on exertion, No cough, No dyspnea at rest Cardiac: + PND, + chest pain, + edema, + orthopnea Abdomen: No pain Objective Vital Signs Date Time Temp Pulse Resp B/P Pulse Ox O2 Delivery O2 Flow Rate FiO2 02/02/17 16:19 36.6 62 16 106/72 96 Room Air 02/02/17 16:00 Nasal Cannula 4.0 02/02/17 12:00 Nasal Cannula 4.0 02/02/17 11:36 36.9 68 16 111/76 90 Room Air 02/02/17 08:00 Nasal Cannula 4.0 02/02/17 07:40 36.6 61 16 108/69 95 Nasal Cannula 4.0 02/02/17 06:08 36.6 66 20 107/72 94 02/02/17 05:59 36.5 67 22 107/76 94 Nasal Cannula 4.0 02/02/17 04:17 37.0 77 18 101/67 Nasal Cannula 4.0 02/02/17 00:12 36.5 67 18 93/54 98 Nasal Cannula 4.0 02/01/17 21:41 60 105/58 02/01/17 20:50 36.4 67 18 107/76 97 Nasal Cannula 4.0 02/01/17 20:30 36.4 67 18 107/76 97 Nasal Cannula 4.0 02/01/17 19:46 02/01/17 19:24 64 20 127/63 95 Nasal Cannula 4.0 Physical Exam General Appearance: no apparent distress ENT: pharynx normal Neck: + JVD (to the jaw) Respiratory/Chest: no respiratory distress, no accessory muscle use, + rales ( bibasilar) Cardiovascular: regular rate, rhythm, no gallop, + systolic murmur Abdomen: normal bowel sounds, non tender, soft, no organomegaly Extremities: + pedal edema, + swelling (2-3+ on left, 1-2+ on right, to at least mid-calf ) Laboratory Results Last 24 Hours Test 02/01/17 20:34 02/02/17 00:06 02/02/17 07:42 02/02/17 10:03 Bedside Glucose 130 mg/dl 152 mg/dl Troponin I 0.051 ng/ml 0.050 ng/ml White Blood Count 7.43 K/uL Red Blood Count 5.16 M/uL Hemoglobin 14.9 g/dL Hematocrit 46.4 % Mean Corpuscular Volume 89.9 fL Mean Corpuscular Hemoglobin 28.9 pg Mean Corpuscular Hemoglobin Concent 32.1 g/dl RDW Standard Deviation 55.8 fL RDW Coefficient of Variation 17.0 % Platelet Count 97 K/uL Mean Platelet Volume 9.5 fL Prothrombin Time 24.7 SECONDS Prothromb Time International Ratio 2.2 Sodium Level 137 mmol/L Potassium Level 3.7 mmol/L Chloride Level 95 mmol/L Carbon Dioxide Level 37 mmol/L Anion Gap 5.0 mmol/L Blood Urea Nitrogen 43 mg/dl Creatinine 1.90 mg/dl Est Creatinine Clear Calc Drug Dose 38.5 ml/min Estimated GFR () 39.4 Estimated GFR (Non- 34.0 BUN/Creatinine Ratio 22.9 Random Glucose 209 mg/dl Calcium Level 9.0 mg/dl Magnesium Level 2.4 mg/dl Test 02/02/17 11:25 02/02/17 16:33 Bedside Glucose 182 mg/dl 134 mg/dl Assessment and Plan 76yo male: 1. acute/chronic systolic CHF - continue IV bumex, aldactone & metazolone. Continue beta jaimee therapy. Strict I's and O's. Possible revision of pacemaker to bi-ventricular pacer in AM due to severely depressed EF. Appreciate cardiology consult. 2. chest pain - despite the recurrency of his symptoms his troponin has risen minimally. [id number] he has known CAD. Spoke with cardiology regarding this issue. Will recheck the troponin in the AM. Monitor for any additional symptoms. Cont imdur, BB, etc. Unclear why he is not on aspirin but perhaps related to chronic thrombocytopenia. 3. a. fib - s/p pacemaker placement. On chronic warfarin. Warfarin being held for upcoming procedure. Resume warfarin s/p pacemaker revision. 4. h/o v-tach - AICD in place. On amiodarone. 5. T2DM - controlled with current insulin regimen. 6. CKD stage 3 - creatinine at baseline; BMP in am. 7. hypothyroidism - cont synthroid; TSH this admission compensated. 8. DVT proph - warfarin; INR is > 2. 9. thrombocytopenia - platelet count is at baseline. chronic low-grade ITP? 10. pacemaker status - see #1 above. family updated at bedside NPO after midnight for possible pacer revision Continued [facility] stay due to: multiple IV medications needed
[2017-02-02] MEDS: SIMVASTATIN 40 MG TAB PO SCH (21:24)
[2017-02-02] MEDS: INSULIN GLARGINE SOLOSTAR 100 UNITS/ML 3 ML PEN SC SCH (21:27)
[2017-02-03] VITALS (13 sets, daily range): BP systolic 101–135; BP diastolic 65–81; PULSE 60–78; TEMP 36.4–37.1; O2SAT 91–97
[2017-02-03] MEDS ORDERED: SODIUM CHLORIDE 0.65% NA SOLN 45 ML (OCEAN) ONE (06:08)
[2017-02-03] MEDS: LEVOTHYROXINE 75 MCG TAB PO SCH (06:13)
[2017-02-03 06:21] LABS: INR 1.8 (0.9-1.1); PROTHROMBIN TIME (PATIENT) 19.3 SECONDS (9.0-12.0)
[2017-02-03 06:47] LABS: CALCIUM 9.1 mg/dl (8.5-10.1); CREATININE 1.9 mg/dl (0.60-1.40); POTASSIUM 3.2 mmol/L (3.5-5.1)
[2017-02-03] MEDS: ALLOPURINOL 100 MG TAB PO SCH ×2 (09:00→21:12)
[2017-02-03] MEDS: BUMETANIDE IV 2 MG in SYRINGE 0 ML IV SCH ×2 (09:00→17:33)
[2017-02-03] MEDS: CARVEDILOL 12.5 MG TAB PO SCH ×2 (09:00→21:11)
[2017-02-03] MEDS: POLYETHYLENE (MIRALAX) 17 GM PACK PO SCH (09:00)
[2017-02-03] MEDS: ISOSORBIDE MONONITRATE 60 MG TABCR PO SCH (09:00)
[2017-02-03] MEDS: SPIRONOLACTONE 25 MG TAB PO SCH (09:00)
[2017-02-03] MEDS: CALCITRIOL 0.25 MCG CAP PO SCH (09:00)
[2017-02-03] MEDS: SENNA 8.6 MG TAB PO SCH ×2 (09:00→21:11)
[2017-02-03] MEDS: INSULIN ASPART 100 UNITS/ML 3 ML PEN SC SCH ×7 (09:22→21:26)
[2017-02-03] MEDS ORDERED: POTASSIUM CHLORIDE 10 MEQ TABCR PO ONE (09:45)
[2017-02-03] MEDS: FLUTICASONE PROPIONATE NA SPR 16 GM BTL NAE SCH (10:35)
[2017-02-03] MEDS: IPRATROPIUM BROMIDE NASAL SPRAY 0.06% 15ML NAE SCH ×2 (10:35→21:27)
[2017-02-03] MEDS: POTASSIUM CHLORIDE 20 MEQ TABCR PO SCH ×2 (10:36→21:11)
[2017-02-03] MEDS: SIMVASTATIN 40 MG TAB PO SCH (21:12)
[2017-02-03] MEDS: INSULIN GLARGINE SOLOSTAR 100 UNITS/ML 3 ML PEN SC SCH (21:26)
--- NOTE | 2017-02-03 22:00 | Progress Note ---
Subjective Date of Service: Feb 03, 2017. Subjective Pt evaluation today including: conversation w/ patient (via Serbian Dock Worker ), physical exam, chart review, lab review, review of inpatient medication list Pain: denies chest pain episodes PO Intake: normal up until NPO status put in place Voiding: no voiding problems telemetry stable (paced) thru Serbian american sign language interpreter he states he feels better less dyspnea, less orthopnea no further chest pain Problem List Medical Problems: (1) Acute renal insufficiency Status: Acute (2) Cellulitis, abdominal wall Status: Acute (3) Chest pain Status: Acute (4) CHF (congestive heart failure) Status: Acute (5) Dehydration Status: Acute (6) Dyspnea Status: Acute (7) Elevated d-dimer Status: Acute (8) Elevated troponin Status: Acute (9) Elevated troponin Status: Acute (10) Fever Status: Acute (11) Headache Status: Acute (12) Hypertension Status: Acute (13) Pneumonia Status: Acute (14) Renal insufficiency Status: Acute (15) Syncope Status: Acute (16) Vertigo Status: Acute Review of Systems Respiratory: No dyspnea at rest, No shortness of breath Cardiac: + edema (but improved), No PND, No chest pain, No orthopnea Abdomen: No pain Objective Vital Signs Date Time Temp Pulse Resp B/P Pulse Ox O2 Delivery O2 Flow Rate FiO2 02/03/17 21:08 65 124/77 96 Nasal Cannula 3.0 02/03/17 20:00 92 Nasal Cannula 3.0 02/03/17 19:36 36.8 74 18 107/69 91 Nasal Cannula 3.0 02/03/17 17:41 61 108/73 96 Nasal Cannula 02/03/17 16:00 92 Nasal Cannula 3.0 02/03/17 15:18 37.0 62 18 116/79 92 Nasal Cannula 3.0 02/03/17 12:00 96 Room Air 4.0 02/03/17 11:24 36.4 62 18 135/81 96 02/03/17 08:20 36.8 60 20 101/65 96 02/03/17 08:00 97 Room Air 4.0 02/03/17 04:04 37.1 78 18 104/66 97 Room Air 02/03/17 04:00 96 Nasal Cannula 4.0 02/03/17 00:00 96 Nasal Cannula 4.0 02/02/17 23:57 36.8 58 18 110/71 90 Room Air Physical Exam General Appearance: no apparent distress ENT: pharynx normal Neck: + JVD (but improved) Respiratory/Chest: no respiratory distress, no accessory muscle use, + crackles (both bases - modestly better) Cardiovascular: regular rate, rhythm, no gallop, no murmur Abdomen: normal bowel sounds, non tender, soft, no organomegaly Extremities: + pedal edema (1+ on right, 2+ on left - improved) Neurologic/Psychiatric: alert, oriented x 3 Laboratory Results Last 24 Hours Test 02/03/17 05:34 02/03/17 07:43 02/03/17 11:27 02/03/17 15:58 Prothrombin Time 19.3 SECONDS Prothromb Time International Ratio 1.8 Sodium Level 139 mmol/L Potassium Level 3.2 mmol/L Chloride Level 95 mmol/L Carbon Dioxide Level 38 mmol/L Anion Gap 6.0 mmol/L Blood Urea Nitrogen 47 mg/dl Creatinine 1.90 mg/dl Est Creatinine Clear Calc Drug Dose 38.1 ml/min Estimated GFR () 39.4 Estimated GFR (Non- 34.0 BUN/Creatinine Ratio 25.0 Random Glucose 143 mg/dl Calcium Level 9.1 mg/dl Troponin I 0.062 ng/ml Bedside Glucose 143 mg/dl 144 mg/dl 170 mg/dl Test 02/03/17 20:01 Bedside Glucose 231 mg/dl Assessment and Plan 76yo male: 1. acute/chronic systolic CHF - Improved. Continue IV bumex, aldactone & metazolone. Continue beta jaimee therapy. Suspect I/O's are not accurate as his weights continue to drop nicely. Possible revision of pacemaker to bi-ventricular pacer this AM due to severely depressed EF. Appreciate cardiology consult. 2. chest pain - resolved. No significant rise in troponin. Cont imdur, BB, etc. Unclear why he is not on aspirin but perhaps related to chronic thrombocytopenia. 3. a. fib - s/p pacemaker placement. On chronic warfarin. Warfarin being held for upcoming procedure. Resume warfarin s/p pacemaker revision. 4. h/o v-tach - AICD in place. On amiodarone. 5. T2DM - controlled with current insulin regimen. 6. CKD stage 3 - creatinine at baseline; BMP in am. 7. hypothyroidism - cont synthroid; TSH this admission compensated. 8. DVT proph - INR 1.8 today; start SC heparin tomorrow AM cautiously in light of low platelets. 9. thrombocytopenia - platelet count is at baseline. chronic low-grade ITP? 10. pacemaker status - see #1 above. 11. hypokalemia - give additional replacement, repeat K and mag in AM. PT, OT consults leave on telemetry Continued [facility] stay due to: multiple IV medications needed Discharge planning: home
[2017-02-04] VITALS (12 sets, daily range): BP systolic 100–125; BP diastolic 64–74; PULSE 62–79; TEMP 36.4–37; O2SAT 91–97
[2017-02-04] MEDS: CARVEDILOL 12.5 MG TAB PO SCH ×2 (08:53→21:25)
[2017-02-04] MEDS: LEVOTHYROXINE 75 MCG TAB PO SCH (08:54)
[2017-02-04] MEDS: SENNA 8.6 MG TAB PO SCH ×2 (08:54→21:25)
[2017-02-04] MEDS: ISOSORBIDE MONONITRATE 60 MG TABCR PO SCH (08:54)
[2017-02-04] MEDS: ALLOPURINOL 100 MG TAB PO SCH ×2 (08:54→21:25)
[2017-02-04] MEDS: POTASSIUM CHLORIDE 20 MEQ TABCR PO SCH ×2 (08:55→21:25)
[2017-02-04] MEDS: CALCITRIOL 0.25 MCG CAP PO SCH (08:55)
[2017-02-04] MEDS: BUMETANIDE IV 2 MG in SYRINGE 0 ML IV SCH ×2 (08:55→17:38)
[2017-02-04] MEDS: SPIRONOLACTONE 25 MG TAB PO SCH (08:55)
[2017-02-04] MEDS: IPRATROPIUM BROMIDE NASAL SPRAY 0.06% 15ML NAE SCH ×2 (08:56→21:25)
[2017-02-04] MEDS: FLUTICASONE PROPIONATE NA SPR 16 GM BTL NAE SCH (08:56)
[2017-02-04] MEDS: POLYETHYLENE (MIRALAX) 17 GM PACK PO SCH (08:57)
[2017-02-04] MEDS: INSULIN ASPART 100 UNITS/ML 3 ML PEN SC SCH ×7 (08:59→21:00)
--- NOTE | 2017-02-04 09:58 | Cardiology Follow-Up ---
Subjective Date of Service: Feb 04, 2017. Pt evaluation today including: conversation w/ patient, physical exam, lab review, review of studies, review of inpatient medication list, conversation w/ attending History of Present Illness This is a very pleasant [place] Korean-speaking gentleman who knows some Trinidadian but is a bit hard to talk to. He has a history of coronary artery disease which includes LAD stent placement, he also has hypertension, hypercholesterolemia, mild chronic renal disease and diabetes mellitus. He also has permanent atrial fibrillation and congestive heart failure. He had an ICD implanted on February 20, 2011 for primary prevention of sudden cardiac as well as bradycardia support. LVEF 09/2015 was 20-25%, he has been on higher doses of beta blockade but these had to be reduced due to intolerance and he is also on spironolactone which was discontinued in early 2014, although I can't tell from the chart exactly why it was discontinued. He was also on remigio inhibitors in the past and these also have been discontinued. He does have chronic renal insufficiency. He has had increased frequency of nonsustained ventricular tachycardia (and probably premature ventricular beats as well) over the past 9 months, additionally he has had several episodes of ventricular tachycardia requiring ICD therapy since the end of March 2016, including early August 2016 where he presented with brief syncope, witnessed, which turned out to be ventricular tachycardia or fibrillation appropriately treated by the device with an ICD shock. He presents now with progressive shortness of breath and edema. He was found to be in congestive heart failure and was admitted. He has been diuresed since admission, he has lost a significant amount of weight and has had reduction in his peripheral edema. Social History Smoking Status: Never Smoker History of Alcohol Use: No Review of Systems Respiratory: + shortness of breath, No dyspnea at rest Cardiac: + edema (but improved), No PND, No chest pain, No orthopnea Medications Cardiovascular: Item Value Date Time Isosorbide 60 mg 02/02/17 0900 Mononitrate QAM/PO (Imdur Ext Rel Tab) Bumetanide 2 mg/ 8 ml @ 4 mls/min 02/02/17 0900 Syringe BID17/IV 02/03/17 1733 Spironolactone 25 mg 02/02/17 0900 (Aldactone Tab) QAM/PO Carvedilol 12.5 mg 02/01/17 2100 (Coreg Tab) BID/PO 02/03/172110 Simvastatin 40 mg 02/01/172099 (Zocor Tab) QPM/PO 02/03/172111 Potassium Chloride 40 meq 02/01/172099 (Klor-Con Tab) BID/PO 02/03/172110 Objective Vital Signs Past 12 Hours Date Time Temp Pulse Resp B/P Pulse Ox O2 Delivery O2 Flow Rate FiO2 02/04/17 08:10 36.7 66 16 125/71 91 Room Air 02/04/17 04:00 36.4 63 20 106/70 92 3.0 02/04/17 03:53 96 Nasal Cannula 3.0 02/04/17 00:09 36.8 79 18 108/70 93 Room Air 02/04/17 00:00 96 Nasal Cannula 3.0 Last Recorded Weight-Kilograms: 93.510 Intake & Output 8-Hour Column 02/03/17 02/04/17 02/04/17 16:00 00:00 08:00 Intake Total 480 ml 300 ml Output Total 675 ml Balance 480 ml -375 ml 24-Hour Column 02/04/17 08:00 Intake Total 780 ml Output Total 675 ml Balance 105 ml Physical Exam Constitutional: Level of Distress: NAD Lungs: Auscultation: rales/crackles on the left, rales/crackles on the right Cardiovascular: Heart Auscultation: irregular rate rhythm Extremities: edema (+2 bilaterally) Data Laboratory Results: Last 24 Hours Test 02/03/17 11:27 02/03/17 15:58 02/03/17 20:01 02/04/17 04:44 Bedside Glucose 144 mg/dl 170 mg/dl 231 mg/dl Test 02/04/17 05:54 02/04/17 07:51 Bedside Glucose 132 mg/dl 157 mg/dl Imaging: His echocardiogram done on 02/02/2017 shows severe left ventricular systolic dysfunction, moderate to severe mitral regurgitation, moderate pulmonary hypertension and mild aortic stenosis. He also has mild to moderate right ventricular systolic dysfunction. His left ventricular ejection fraction is 20-25%. This appears to be global. EKG: His electrocardiogram from 02/02/2017 shows a ventricular paced rhythm with underlying atrial fibrillation. The QRS is extremely wide, reported as 192 ms but may actually be about 200 ms. LBBB paced pattern. Telemetry reviewed: Atrial fibrillation with intermittent appropriate ventricular pacing. Assessment and Plan 1. Congestive heart failure: He has had exacerbation of his congestive heart failure prompting this admission, the reason for it are not clear. He has responded well to diuresis. He is certainly class III NYHA heart failure classification. He does have global hypokinesis based on his echocardiogram and his left ventricular ejection fraction is severely reduced. Agree with continued diuresis. He is probably a good candidate for a biventricular device. 2. Left bundle-branch block: He has a very wide paced ventricular complex, approaching 200 ms. His intrinsic conduction is also extremely wide. He has global hypokinesis and a markedly reduced ejection fraction and class III congestive heart failure. He would be a good candidate for resynchronization therapy, that is planned for 02/06/2017. 3. Cardiomyopathy: Although he has coronary artery disease his cardiomyopathy may in part be nonischemic. He has global hypokinesis and severe left ventricular dysfunction with an extremely wide paced QRS complex as well as a wide intrinsic complex. He is probably in a group which responds well to resynchronization therapy. We have discussed resynchronization therapy on several occasions, and I reviewed that with him and his daughter yesterday. We will continue with our plans for upgrade of his single-chamber ICD to a biventricular ICD (without an atrial lead since he is in permanent atrial fibrillation) in several days. In the meantime we need to continue holding his warfarin, heparin could be administered at this point since his INR is 1.8. Thank you for allowing me to participate in his care.
[2017-02-04 10:05] LABS: PLATELET COUNT 93 K/uL (130-400)
[2017-02-04 10:20] LABS: BUN/CREATININE RATIO 24.7 (10-20)
[2017-02-04 10:21] LABS: MAGNESIUM 2.4 mg/dl (1.8-2.4); POTASSIUM 3.5 mmol/L (3.5-5.1)
[2017-02-04] MEDS: SIMVASTATIN 40 MG TAB PO SCH (21:25)
[2017-02-04] MEDS: INSULIN GLARGINE SOLOSTAR 100 UNITS/ML 3 ML PEN SC SCH (21:27)
[2017-02-05] VITALS (9 sets, daily range): BP systolic 90–121; BP diastolic 52–80; PULSE 47–72; TEMP 36.5–36.8; O2SAT 92–97
[2017-02-05] MEDS: LEVOTHYROXINE 75 MCG TAB PO SCH (06:00)
[2017-02-05 06:43] LABS: INR 1.3 (0.9-1.1); PROTHROMBIN TIME (PATIENT) 14.4 SECONDS (9.0-12.0)
[2017-02-05 07:26] LABS: BUN/CREATININE RATIO 23.4 (10-20); CALCIUM 9.1 mg/dl (8.5-10.1); POTASSIUM 3.4 mmol/L (3.5-5.1)
[2017-02-05] MEDS: SPIRONOLACTONE 25 MG TAB PO SCH (08:17)
[2017-02-05] MEDS: ISOSORBIDE MONONITRATE 60 MG TABCR PO SCH (08:17)
[2017-02-05] MEDS: CALCITRIOL 0.25 MCG CAP PO SCH (08:17)
[2017-02-05] MEDS: CARVEDILOL 12.5 MG TAB PO SCH ×2 (08:17→21:00)
--- NOTE | 2017-02-05 08:17 | Progress Note ---
Subjective Date of Service: late entry for visit Feb 04, 2017. Subjective Pt evaluation today including: conversation w/ patient, conversation w/ family (, daughter), physical exam, chart review, lab review, conversation w/ contact center consultant (EP/cardiology), review of inpatient medication list Pain: no chest pain or abd pain PO Intake: normal Voiding: no voiding problems tele - paced via Turkmen Pouncing Machine Operator - patient states he feels better less dyspnea c/o palpitations/heart racing with activity however less orthopnea Problem List Medical Problems: (1) Acute renal insufficiency Status: Acute (2) Cellulitis, abdominal wall Status: Acute (3) Chest pain Status: Acute (4) CHF (congestive heart failure) Status: Acute (5) Dehydration Status: Acute (6) Dyspnea Status: Acute (7) Elevated d-dimer Status: Acute (8) Elevated troponin Status: Acute (9) Elevated troponin Status: Acute (10) Fever Status: Acute (11) Headache Status: Acute (12) Hypertension Status: Acute (13) Pneumonia Status: Acute (14) Renal insufficiency Status: Acute (15) Syncope Status: Acute (16) Vertigo Status: Acute Review of Systems Constitutional: No fever Respiratory: No cough Cardiac: No chest pain Abdomen: No pain Objective Vital Signs Date Time Temp Pulse Resp B/P Pulse Ox O2 Delivery O2 Flow Rate FiO2 02/05/17 07:40 36.7 65 20 90/52 94 Nasal Cannula 4.0 02/05/17 04:44 36.5 63 20 92/54 93 Room Air 02/05/17 04:00 Nasal Cannula 3.0 02/05/17 00:00 Nasal Cannula 3.0 02/04/17 23:18 36.4 66 16 110/72 92 Room Air 02/04/17 20:00 Nasal Cannula 3.0 02/04/17 19:53 37.0 70 16 112/66 92 Room Air 02/04/17 16:00 Room Air 3.0 02/04/17 15:33 62 95 02/04/17 15:04 36.8 66 16 114/74 97 Nasal Cannula 3.0 02/04/17 12:00 94 Room Air 3.0 02/04/17 11:34 36.6 74 16 100/64 94 Nasal Cannula 3.0 Physical Exam General Appearance: no apparent distress ENT: pharynx normal Neck: + JVD Respiratory/Chest: no respiratory distress, no accessory muscle use, + crackles (bases) Cardiovascular: regular rate, rhythm, no gallop, no murmur Abdomen: normal bowel sounds, non tender, soft, no organomegaly Extremities: + pedal edema, + swelling Neurologic/Psychiatric: alert, oriented x 3 Laboratory Results Last 24 Hours Test 02/04/17 09:50 02/04/17 11:55 02/04/17 16:17 02/04/17 20:18 Platelet Count 93 K/uL Sodium Level 139 mmol/L Potassium Level 3.5 mmol/L Chloride Level 96 mmol/L Carbon Dioxide Level 37 mmol/L Anion Gap 6.0 mmol/L Blood Urea Nitrogen 49 mg/dl Creatinine 2.00 mg/dl Est Creatinine Clear Calc Drug Dose 35.9 ml/min Estimated GFR () 37.0 Estimated GFR (Non- 31.9 BUN/Creatinine Ratio 24.7 Random Glucose 247 mg/dl Calcium Level 9.0 mg/dl Magnesium Level 2.4 mg/dl Bedside Glucose 175 mg/dl 172 mg/dl 154 mg/dl Test 02/05/17 06:06 02/05/17 07:26 Prothrombin Time 14.4 SECONDS Prothromb Time International Ratio 1.3 Sodium Level 137 mmol/L Potassium Level 3.4 mmol/L Chloride Level 95 mmol/L Carbon Dioxide Level 36 mmol/L Anion Gap 6.0 mmol/L Blood Urea Nitrogen 47 mg/dl Creatinine 2.00 mg/dl Est Creatinine Clear Calc Drug Dose 35.8 ml/min Estimated GFR () 37.0 Estimated GFR (Non- 31.9 BUN/Creatinine Ratio 23.4 Random Glucose 179 mg/dl Calcium Level 9.1 mg/dl Bedside Glucose 193 mg/dl Assessment and Plan 76yo male: 1. acute/chronic systolic CHF - continues to improve clinically. Net 6+ kg weight loss since admission. Continue IV bumex, aldactone & metazolone. Continue beta jaimee therapy. Suspect I/O's are not accurate as his weights continue to drop nicely. Possible revision of pacemaker to bi-ventricular pacer this Thursday due to severely depressed EF. Appreciate cardiology consult. 2. chest pain - resolved. No significant rise in troponin despite the recent chest pain. Cont imdur, BB, etc. Unclear why he is not on aspirin but perhaps related to chronic thrombocytopenia. 3. a. fib - s/p pacemaker placement. On chronic warfarin. Warfarin being held for upcoming procedure. Resume warfarin s/p pacemaker revision. 4. h/o v-tach - AICD in place. On amiodarone. 5. T2DM - controlled with current insulin regimen. 6. CKD stage 3 - creatinine at baseline of 2; BMP in am. 7. hypothyroidism - cont synthroid; TSH this admission compensated. 8. DVT proph - start SC heparin tomorrow AM cautiously in light of low platelets. 9. thrombocytopenia - platelet count is at baseline. chronic low-grade ITP? 10. pacemaker status - see #1 above. 11. hypokalemia - give additional replacement, repeat K and mag in AM. PT, OT consults leave on telemetry /daughter updated today Continued [facility] stay due to: multiple IV medications needed Discharge planning: home
[2017-02-05] MEDS: POLYETHYLENE (MIRALAX) 17 GM PACK PO SCH (08:18)
[2017-02-05] MEDS: ALLOPURINOL 100 MG TAB PO SCH ×2 (08:18→20:58)
[2017-02-05] MEDS: FLUTICASONE PROPIONATE NA SPR 16 GM BTL NAE SCH (08:18)
[2017-02-05] MEDS: SENNA 8.6 MG TAB PO SCH ×2 (08:19→21:00)
[2017-02-05] MEDS: IPRATROPIUM BROMIDE NASAL SPRAY 0.06% 15ML NAE SCH (08:26)
[2017-02-05] MEDS: INSULIN ASPART 100 UNITS/ML 3 ML PEN SC SCH ×7 (08:29→21:08)
[2017-02-05] MEDS: BUMETANIDE IV 2 MG in SYRINGE 0 ML IV SCH ×2 (08:31→17:02)
[2017-02-05] MEDS: POTASSIUM CHLORIDE 20 MEQ TABCR PO SCH ×3 (08:33→20:58)
[2017-02-05] MEDS: HEPARIN SOD 5000 UNIT/0.5 ML CARP SQ SCH ×2 (12:55→21:09)
--- NOTE | 2017-02-05 17:08 | Cardiology Follow-Up ---
Subjective Date of Service: Feb 05, 2017. Pt evaluation today including: conversation w/ patient, lab review, review of studies, review of inpatient medication list, conversation w/ attending History of Present Illness This is a very pleasant Algerian-speaking gentleman who knows some American but is a bit hard to talk to. He has a history of coronary artery disease which includes LAD stent placement, he also has hypertension, hypercholesterolemia, mild chronic renal disease and diabetes mellitus. He also has permanent atrial fibrillation and congestive heart failure. He had an ICD implanted on February 20, 2011 for primary prevention of sudden cardiac as well as bradycardia support. LVEF 09/2015 was 20-25%, he has been on higher doses of beta blockade but these had to be reduced due to intolerance and he is also on spironolactone which was discontinued in early 2014, although I can't tell from the chart exactly why it was discontinued. He was also on remigio inhibitors in the past and these also have been discontinued. He does have chronic renal insufficiency. He has had increased frequency of nonsustained ventricular tachycardia (and probably premature ventricular beats as well) over the past 9 months, additionally he has had several episodes of ventricular tachycardia requiring ICD therapy since the end of March 2016, including early August 2016 where he presented with brief syncope, witnessed, which turned out to be ventricular tachycardia or fibrillation appropriately treated by the device with an ICD shock. He presents now with progressive shortness of breath and edema. He was found to be in congestive heart failure and was admitted. He has been diuresed since admission, he has lost a significant amount of weight and has had reduction in his peripheral edema. He is feeling considerably better today. We have been discussing ICD upgrade to a biventricular device to help with his heart failure. He is agreeable to this approach. Social History Smoking Status: Never Smoker History of Alcohol Use: No Review of Systems Respiratory: No cough, No shortness of breath Cardiac: No chest pain Objective Vital Signs Past 12 Hours Date Time Temp Pulse Resp B/P Pulse Ox O2 Delivery O2 Flow Rate FiO2 02/05/17 16:20 36.5 60 18 102/61 92 Room Air 02/05/17 16:00 Room Air 02/05/17 12:00 94 Room Air 3.0 02/05/17 11:15 36.8 47 18 106/69 97 Nasal Cannula 4.0 02/05/17 08:14 72 121/80 94 Nasal Cannula 3.0 02/05/17 08:00 94 Room Air 3.0 02/05/17 07:40 36.7 65 20 90/52 94 Nasal Cannula 4.0 Last Recorded Weight-Kilograms: 92.900 Intake & Output 8-Hour Column 02/04/17 02/05/17 02/05/17 16:00 00:00 08:00 Intake Total 575 ml 240 ml 240 ml Output Total 300 ml 400 ml 400 ml Balance 275 ml -160 ml -160 ml 24-Hour Column 02/05/17 08:00 Intake Total 1055 ml Output Total 1100 ml Balance -45 ml Physical Exam Constitutional: Level of Distress: NAD Lungs: Auscultation: rales/crackles on the left, rales/crackles on the right Cardiovascular: Heart Auscultation: irregular rate rhythm Extremities: edema (+2 bilaterally) Data Laboratory Results: Last 24 Hours Test 02/04/17 20:18 02/05/17 06:06 02/05/17 07:26 02/05/17 11:11 Bedside Glucose 154 mg/dl 193 mg/dl 226 mg/dl Prothrombin Time 14.4 SECONDS Prothromb Time International Ratio 1.3 Sodium Level 137 mmol/L Potassium Level 3.4 mmol/L Chloride Level 95 mmol/L Carbon Dioxide Level 36 mmol/L Anion Gap 6.0 mmol/L Blood Urea Nitrogen 47 mg/dl Creatinine 2.00 mg/dl Est Creatinine Clear Calc Drug Dose 35.8 ml/min Estimated GFR () 37.0 Estimated GFR (Non- 31.9 BUN/Creatinine Ratio 23.4 Random Glucose 179 mg/dl Calcium Level 9.1 mg/dl Test 02/05/17 16:19 Bedside Glucose 122 mg/dl Assessment and Plan 1. Congestive heart failure: He has had exacerbation of his congestive heart failure prompting this admission, the reason for it are not clear. He has responded well to diuresis. He is certainly class III NYHA heart failure classification. He does have global hypokinesis based on his echocardiogram and his left ventricular ejection fraction is severely reduced. He is a good candidate for a biventricular device. 2. Left bundle-branch block: He has a very wide paced ventricular complex, approaching 200 ms. His intrinsic conduction is also extremely wide. He has global hypokinesis and a markedly reduced ejection fraction and class III congestive heart failure. He is a good candidate for resynchronization therapy, that is planned for 02/06/2017. 3. Cardiomyopathy: Although he has coronary artery disease his cardiomyopathy may in part be nonischemic. He has global hypokinesis and severe left ventricular dysfunction with an extremely wide paced QRS complex as well as a wide intrinsic complex. He is probably in a group which responds well to resynchronization therapy and should be given that opportunity. We plan to upgrade his ICD to a biventricular device tomorrow (this will necessitate adding a left ventricular lead and replacing the unit itself). I discussed the indications, procedure, risks and alternatives with him via a self sealing fuel tank builder through the iPad translation device. He understands and agrees to proceed. Consent obtained by that method. Thank you for allowing me to participate in his care.
--- NOTE | 2017-02-05 20:48 | Progress Note ---
Subjective Date of Service: Feb 05, 2017. Subjective Pt evaluation today including: conversation w/ patient, physical exam, chart review, lab review, conversation w/ sap basis consultant (cardiology - Dr. Anderson), review of inpatient medication list Pain: denies cp PO Intake: normal Voiding: no voiding problems tele - paced overnight no other dysrhythmia [place] Medical Pathologist used to communicate with him -- he denied any dyspnea, orthopnea, PND, chest pain, sob, abd pain "I feel good" Dr. Anderson was present during my visit and he consented him for pacer revision tomorrow AM Problem List Medical Problems: (1) Acute renal insufficiency Status: Acute (2) Cellulitis, abdominal wall Status: Acute (3) Chest pain Status: Acute (4) CHF (congestive heart failure) Status: Acute (5) Dehydration Status: Acute (6) Dyspnea Status: Acute (7) Elevated d-dimer Status: Acute (8) Elevated troponin Status: Acute (9) Elevated troponin Status: Acute (10) Fever Status: Acute (11) Headache Status: Acute (12) Hypertension Status: Acute (13) Pneumonia Status: Acute (14) Renal insufficiency Status: Acute (15) Syncope Status: Acute (16) Vertigo Status: Acute Review of Systems Constitutional: No fever Respiratory: No cough, No dyspnea on exertion, No shortness of breath Cardiac: No PND, No chest pain, No edema, No orthopnea Objective Vital Signs Date Time Temp Pulse Resp B/P Pulse Ox O2 Delivery O2 Flow Rate FiO2 02/05/17 20:15 36.8 63 20 119/79 93 Room Air 02/05/17 16:20 36.5 60 18 102/61 92 Room Air 02/05/17 16:00 Room Air 02/05/17 12:00 94 Room Air 3.0 02/05/17 11:15 36.8 47 18 106/69 97 Nasal Cannula 4.0 02/05/17 08:14 72 121/80 94 Nasal Cannula 3.0 02/05/17 08:00 94 Room Air 3.0 02/05/17 07:40 36.7 65 20 90/52 94 Nasal Cannula 4.0 02/05/17 04:44 36.5 63 20 92/54 93 Room Air 02/05/17 04:00 Nasal Cannula 3.0 02/05/17 00:00 Nasal Cannula 3.0 02/04/17 23:18 36.4 66 16 110/72 92 Room Air Physical Exam General Appearance: no apparent distress ENT: pharynx normal Neck: + JVD (but improved from previous exams) Respiratory/Chest: no respiratory distress, no accessory muscle use, + crackles (bases) Cardiovascular: regular rate, rhythm, no gallop, no murmur Abdomen: normal bowel sounds, non tender, soft, no organomegaly Extremities: no pedal edema Neurologic/Psychiatric: alert, oriented x 3 Laboratory Results Last 24 Hours Test 02/05/17 06:06 02/05/17 07:26 02/05/17 11:11 02/05/17 16:19 Prothrombin Time 14.4 SECONDS Prothromb Time International Ratio 1.3 Sodium Level 137 mmol/L Potassium Level 3.4 mmol/L Chloride Level 95 mmol/L Carbon Dioxide Level 36 mmol/L Anion Gap 6.0 mmol/L Blood Urea Nitrogen 47 mg/dl Creatinine 2.00 mg/dl Est Creatinine Clear Calc Drug Dose 35.8 ml/min Estimated GFR () 37.0 Estimated GFR (Non- 31.9 BUN/Creatinine Ratio 23.4 Random Glucose 179 mg/dl Calcium Level 9.1 mg/dl Bedside Glucose 193 mg/dl 226 mg/dl 122 mg/dl Assessment and Plan 76yo male: 1. acute/chronic systolic CHF - suspect approaching euvolemia. Net 6.5 kg weight loss since admission. Continue IV bumex, aldactone & metazolone. Continue beta jaimee therapy. Appreciate cardiology consult. 2. pacemaker status - NPO after MN tonight for pacer revision tomorrow (will get BiV pacer tomorrow). 3. a. fib - s/p pacemaker placement. On chronic warfarin. Warfarin being held for #2 in AM. Resume warfarin s/p pacemaker revision. 4. h/o v-tach - AICD in place. On amiodarone. 5. T2DM - controlled with current insulin regimen. 6. CKD stage 3 - creatinine at baseline of 2; BMP in am. 7. hypothyroidism - cont synthroid; TSH this admission compensated. 8. DVT proph - SC heparin while off coumadin. Hold after tonight's dose. 9. thrombocytopenia - platelet count is at baseline. chronic low-grade ITP? CBC in AM for stability. 10. hypokalemia - increase K-dur to TID dosing. BMP in am. Mag is normal. progressing family updated 02/04/17 Continued [facility] stay due to: multiple IV medications needed Discharge planning: home
[2017-02-05] MEDS: SIMVASTATIN 40 MG TAB PO SCH (21:00)
[2017-02-05] MEDS: INSULIN GLARGINE SOLOSTAR 100 UNITS/ML 3 ML PEN SC SCH (21:09)
[2017-02-06] VITALS (13 sets, daily range): BP systolic 92–143; BP diastolic 50–90; PULSE 57–78; TEMP 36.4–36.9; O2SAT 88–98
[2017-02-06] MEDS: LEVOTHYROXINE 75 MCG TAB PO SCH (05:41)
[2017-02-06] MEDS ORDERED: LACTATED RINGER'S 1000ML 1,000 ML IV ONE (06:00)
[2017-02-06] MEDS ORDERED: CEFAZOLIN SOD 1000MG/55 ML D5W IV SCH (06:00)
[2017-02-06 06:05] LABS: HEMATOCRIT 48.7 % (42-52); MEAN CELL VOLUME 89.9 fL (80-100); MEAN CORPUSCULAR HEMOGLOBIN 29.7 pg (25-34); MEAN CORPUSCULAR HGB CONC 33.1 g/dl (32-36); MEAN PLATELET VOLUME 10.1 fL (7.4-10.4); PLATELET COUNT 131 K/uL (130-400); RED BLOOD COUNT 5.42 M/uL (4.7-6.1); WHITE BLOOD COUNT 6.73 K/uL (4.8-10.8)
[2017-02-06] MEDS: INSULIN ASPART 100 UNITS/ML 3 ML PEN SC SCH ×7 (06:30→20:16)
[2017-02-06 06:43] LABS: BUN/CREATININE RATIO 24.2 (10-20); CALCIUM 9.1 mg/dl (8.5-10.1); CREATININE 1.9 mg/dl (0.60-1.40); POTASSIUM 3.6 mmol/L (3.5-5.1)
[2017-02-06] MEDS ORDERED: BACITRACIN 50000 UNIT VIAL ONE (07:09)
[2017-02-06] MEDS ORDERED: LIDOCAINE HCL 1% 20 ML VIAL ONE (07:09)
[2017-02-06] MEDS ORDERED: BACITRACIN OINT 0.9 GM PKT ONE (07:09)
[2017-02-06] MEDS ORDERED: KEFZOL SPECIAL PROCEDURE STOCK 1 GM ADDVIAL IV ONE (08:36)
--- NOTE | 2017-02-06 08:37 | Procedure Note ---
Pre-Mod Sedation Assessment General Date of Moderate Sedation: Feb 06, 2017. Vital Signs: Vital Signs Past 12 Hours Date Time Temp Pulse Resp B/P Pulse Ox O2 Delivery O2 Flow Rate FiO2 02/06/17 08:00 98 Room Air 02/06/17 06:56 36.6 58 16 92/50 98 2.0 02/06/17 04:00 Room Air 02/06/17 04:00 36.4 57 16 111/65 96 Room Air 02/06/17 03:30 36.7 58 20 110/70 96 Nasal Cannula 3.0 02/06/17 00:00 Room Air 02/05/17 23:40 36.5 67 16 110/69 94 Room Air Review Cardiovascular: + irregularly irregular Abdomen: normal bowel sounds Lungs: lungs clear Pre-Sedation Airway Assessment Oral Cavity: WNL Short Thick Neck: Yes Hx of Sleep Apnea: No Smoking Status: Never Smoker Procedure Planning Contraindications-for Mod Sed: None Yes Notes The planned sedation has been discussed with the patient and consent obtained. I have identified the patient, determined the appropriateness of sedation and have assessed the patient immediately prior to the procedure. All medicine(s) and interventions are by my order.
[2017-02-06] MEDS ORDERED: FENTANYL CITRATE INJ 50 MCG/1 ML 2 ML VIAL ONE (08:47)
[2017-02-06] MEDS ORDERED: MIDAZOLAM HCL 5 MG/ML 1 ML VIAL ONE (08:47)
--- NOTE | 2017-02-06 10:51 | Procedure Note ---
Post-Mod Sedation Assessment General Date of Moderate Sedation Feb 06, 2017. Vital Signs: Vital Signs Past 12 Hours Date Time Temp Pulse Resp B/P Pulse Ox O2 Delivery O2 Flow Rate FiO2 02/06/17 10:40 68 16 134/78 98 Nasal Cannula 6 02/06/17 10:25 68 16 130/87 98 Nasal Cannula 6 02/06/17 08:00 98 Room Air 02/06/17 06:56 36.6 58 16 92/50 98 2.0 02/06/17 04:00 Room Air 02/06/17 04:00 36.4 57 16 111/65 96 Room Air 02/06/17 03:30 36.7 58 20 110/70 96 Nasal Cannula 3.0 02/06/17 00:00 Room Air 02/05/17 23:40 36.5 67 16 110/69 94 Room Air Review - Discharge Criteria Vital Signs Stable: Yes Alert/Oriented/Conversant: Yes Returned to Baseline Mental St: Yes Nausea Absent/Minimal: Yes Pain/Discomfort/Absent/Minimal: Yes Normal/Baseline Respirations: Yes Active Bleeding?: No
--- NOTE | 2017-02-06 11:03 | Cardiology Procedure Brief Nt ---
Preliminary Cardiology Note Procedure Date Feb 06, 2017. Pre-Procedure Diagnosis ischemic cardiomyopathy Post-Procedure Diagnosis same Procedure(s) Performed Left subclavian venogram Coronary sinus angiography Left ventricular lead implantation Single-chamber ICD explantation Biventricular ICD implantation Inspector Of Dredging Dr. Anderson Beef Cattle Farm Manager(s) none Estimated Blood Loss 50 cc Preliminary Findings Occluded left subclavian vein with reconstitution, access successful Good left ventricular lead position, good measurements. Recommendations Monitor overnight Specimens Old ICD, return to Medtronic Anesthesia local with sedation Complication(s) None Disposition PCU
[2017-02-06] MEDS ORDERED: ACETAMINOPHEN 325 MG TAB PO PRN (11:15)
[2017-02-06] MEDS ORDERED: KETOROLAC TROMETHAMINE 10 MG TAB PO PRN (11:15)
[2017-02-06] MEDS: IPRATROPIUM BROMIDE NASAL SPRAY 0.06% 15ML NAE SCH ×3 (11:50→19:44)
[2017-02-06] MEDS: CARVEDILOL 12.5 MG TAB PO SCH ×2 (11:51→19:42)
[2017-02-06] MEDS: SENNA 8.6 MG TAB PO SCH ×2 (11:51→19:43)
[2017-02-06] MEDS: ISOSORBIDE MONONITRATE 60 MG TABCR PO SCH (11:51)
[2017-02-06] MEDS: SPIRONOLACTONE 25 MG TAB PO SCH (11:51)
[2017-02-06] MEDS: ALLOPURINOL 100 MG TAB PO SCH ×2 (11:52→19:43)
[2017-02-06] MEDS: CALCITRIOL 0.25 MCG CAP PO SCH (11:52)
[2017-02-06] MEDS: POLYETHYLENE (MIRALAX) 17 GM PACK PO SCH (11:53)
[2017-02-06] MEDS: POTASSIUM CHLORIDE 20 MEQ TABCR PO SCH ×3 (11:53→19:41)
[2017-02-06] MEDS: BUMETANIDE IV 2 MG in SYRINGE 0 ML IV SCH ×2 (11:54→16:58)
[2017-02-06] MEDS: FLUTICASONE PROPIONATE NA SPR 16 GM BTL NAE SCH (11:54)
--- NOTE | 2017-02-06 12:00 | OPERATIVE REPORT ---
DATE OF OPERATION: 02/06/2017 INPATIENT OPERATIVE REPORT PREOPERATIVE DIAGNOSES: 1. Severe primarily ischemic cardiomyopathy. 2. Permanent atrial fibrillation. 3. Class 3 congestive heart failure. 4. Wide paced ventricular complex with a left bundle pattern. POSTOPERATIVE DIAGNOSES: Same plus left subclavian vein occlusion. PROCEDURES: 1. Left subclavian venogram. 2. Coronary sinus angiography. 3. Left ventricular lead implantation. 4. Single-chamber ICD explantation. 5. Biventricular ICD implantation. SURGEON: Pola Anderson MD ANESTHESIA: Local with sedation. HISTORY: This is a very pleasant 76-year-old male who has a history of coronary artery disease including LAD stent placement and longstanding permanent atrial fibrillation and congestive heart failure. He had an ICD implanted on 02/20/2011 for primary prevention of sudden cardiac as well as for bradycardia support. He had a left ventricular ejection fraction of 20%-25% as far back in September of 2015 and he has had recurrent ventricular tachycardia. He continues to have heart failure symptoms, which are at least class 3, he has a very wide paced ventricular complex, which is predominantly paced at 60 beats per minute with left bundle branch block pattern, approaching 200 milliseconds in duration. He has a markedly reduced ejection fraction, measured at 20%-25% on 02/02/2017. He therefore meets criteria for resynchronization therapy, he has an ICD in place and has had clinical ventricular events. Therefore, he requires upgrade to a biventricular ICD. DESCRIPTION OF PROCEDURE: After obtaining informed consent for the procedure, he was brought to the laboratory on the morning of 02/06/2017, being n.p.o. after midnight. He was identified in the laboratory, dye was injected via the left arm IV site to opacify the left subclavian vein. The left subclavian vein was found to be occluded near the site where the leads entered the vessel; however, the vessel did reconstitute just under the clavicular head. It was felt that access was possible; therefore, the area was prepped and draped in standard sterile manner. The area was infiltrated with 1% lidocaine local anesthetic and left subclavian venipuncture was performed by percutaneous technique without undue difficulty and a guidewire advanced through the vein into the superior vena cava. The skin was incised for about 2 cm at the site of the venipuncture, this is about 3 cm superior to the ICD implant scar, but that access location was required due to anatomic considerations. A Michell coronary sinus catheter was advanced to position in the right atrium. Using x-ray dye, the os of the coronary sinus was identified, and using the [place] guidewire, the sheath system was advanced into the coronary sinus. The dilator and guidewire were removed and a balloon occlusion catheter was advanced into the coronary sinus. The balloon was inflated and coronary sinus angiography was performed in various projections. There was a good high posterolateral vessel, which could be accessed. Using a Whisper 0.014-inch guidewire, this vessel was accessed and a quadripolar coronary sinus lead was advanced to good distal position. Once the left ventricular lead was in position, the pacing threshold was evaluated in various configurations, when pacing from the tip, diaphragmatic pacing occurred, although the threshold was excellent; however, from the LV4 to LV3 which is still in good anatomic position, the pacing threshold was 1.3 at a pulse width of 0.5 milliseconds, current was 2.1 milliamp and 5-volt lead impedance was 663 ohms. R-waves were sensed at 26 millivolts. Diaphragmatic pacing was not present at a 10-volt bipolar output at this position. The sheath system and the guidewire were removed from the left ventricular lead. Since this lead was in a different incision and then the ICD implanted, it was not attached to the fascia at this time. The skin was infiltrated with 1% lidocaine local anesthetic through the old ICD implant scar and a 6-cm incision was made through the scar and carried down to the ICD generator. The generator was dissected free of tissue and explanted. It was disconnected from the leads and confirmed to be a Medtronic Protecta XT VR, model #T609GMY, serial #[id number]. This device will be returned to [employer]. The lead is a Medtronic, model #6947, serial #[id number], implanted 02/20/2011. The pacing threshold was 0.7 volts, 5-volt lead impedance was 437 ohms and R waves were sensed at 15.6 millivolts. This lead can be used. The coronary sinus lead was drawn into the pacemaker pocket by dissecting superior through the incision up to the lead and then bring it into the pocket. The lead was attached to the anterior pectoralis fascia using 2 sutures of 2-0 silk around the lead collar. The new ICD was then connected to the new coronary sinus lead and the chronic RV lead. An atrial pin plug was used since there was no atrial lead due to permanent atrial fibrillation. The pin is model #6725, lot #[id number]. The ICD is a Medtronic Amplia MRI Quad CRTD. Once the ICD was connected, It was placed in the pocket with the lead coiled beneath it and the incision was closed with a running double subcutaneous closure of 3-0 Vicryl followed by running subcuticular skin closure of 4-0 Vicryl. Bacitracin ointment was placed on incision and a pressure dressing applied. The small incision at the site of the left ventricular lead was closed with a running subcutaneous closure of 4-0 Vicryl followed by running subcuticular skin closure of 4-0 Vicryl. Bacitracin ointment was placed on this incision and a pressure dressing applied. The patient tolerated the procedure well, there were no complications and estimated blood loss was 50 mL. The patient was transferred to the telemetry unit for monitoring. Details of the explanted pacemaker and the chronic right ventricular defibrillator lead are noted above. The new coronary sinus lead is a Medtronic, model #4598, serial #[id number] and is a quadripolar coronary sinus lead. The ICD is a Medtronic Amplia MRI Quad CRTD SureScan, model #DVVX5A9, serial #[id number]. The ICD was reprogrammed in the laboratory to final settings. This is an MRI compatible system. [facility]
[2017-02-06] MEDS: CEFAZOLIN IV 1,000 MG in DEXTROSE 5% 50ML 50 ML IV SCH (16:58)
[2017-02-06] MEDS: ACETAMINOPHEN 325 MG TAB PO PRN ×2 (17:39→23:09)
[2017-02-06] MEDS ORDERED: TRAMADOL HCL 50 MG TAB PO PRN (17:45)
[2017-02-06] MEDS: SIMVASTATIN 40 MG TAB PO SCH (19:42)
--- NOTE | 2017-02-06 19:48 | Progress Note ---
Subjective Date of Service: Feb 06, 2017. Subjective Pt evaluation today including: conversation w/ patient, conversation w/ family ( at bedside), physical exam, chart review, lab review, review of inpatient medication list Pain: left upper chest at incision site of pacer exchange PO Intake: normal Voiding: no voiding problems tele stable overnight once again I saw the patient this afternoon after he had had his pacemaker revision he c/o left upper chest wall pain but had been refusing to take any pain medication for this he denied any sob he was laying flat in the bed w/o any orthopnea a staff member who speaks Guinean interpreted for my visit Problem List Medical Problems: (1) Acute renal insufficiency Status: Acute (2) Cellulitis, abdominal wall Status: Acute (3) Chest pain Status: Acute (4) CHF (congestive heart failure) Status: Acute (5) Dehydration Status: Acute (6) Dyspnea Status: Acute (7) Elevated d-dimer Status: Acute (8) Elevated troponin Status: Acute (9) Elevated troponin Status: Acute (10) Fever Status: Acute (11) Headache Status: Acute (12) Hypertension Status: Acute (13) Pneumonia Status: Acute (14) Renal insufficiency Status: Acute (15) Syncope Status: Acute (16) Vertigo Status: Acute Review of Systems Constitutional: No chills, No fever Respiratory: No cough, No dyspnea at rest Cardiac: + chest pain, + see HPI, No orthopnea Abdomen: No pain Objective Vital Signs Date Time Temp Pulse Resp B/P Pulse Ox O2 Delivery O2 Flow Rate FiO2 02/06/17 17:00 102/65 02/06/17 16:00 95 Nasal Cannula 2.0 02/06/17 15:47 36.9 72 18 98/63 95 Room Air 02/06/17 12:00 94 Nasal Cannula 2.0 02/06/17 11:30 69 18 130/87 96 Nasal Cannula 2.0 02/06/17 11:15 78 17 143/90 88 Room Air 02/06/17 11:00 36.8 78 18 124/84 90 Room Air 78 02/06/17 10:40 68 16 134/78 98 Nasal Cannula 6 02/06/17 10:25 68 16 130/87 98 Nasal Cannula 6 02/06/17 08:00 98 Room Air 02/06/17 06:56 36.6 58 16 92/50 98 2.0 02/06/17 04:00 Room Air 02/06/17 04:00 36.4 57 16 111/65 96 Room Air 02/06/17 03:30 36.7 58 20 110/70 96 Nasal Cannula 3.0 02/06/17 00:00 Room Air 02/05/17 23:40 36.5 67 16 110/69 94 Room Air 02/05/17 20:15 36.8 63 20 119/79 93 Room Air 02/05/17 20:00 Room Air Physical Exam General Appearance: + mild distress (wincing in pain ) ENT: pharynx normal Neck: no JVD Respiratory/Chest: no respiratory distress, no accessory muscle use, + crackles (bases - but markedly improved ), + pertinent finding (large dressing in place left chest ) Cardiovascular: regular rate, rhythm, no gallop, no murmur Abdomen: normal bowel sounds, non tender, soft, no organomegaly Extremities: no pedal edema Neurologic/Psychiatric: alert, oriented x 3 Laboratory Results Last 24 Hours Test 02/05/17 20:29 02/06/17 05:05 02/06/17 07:59 02/06/17 11:26 Bedside Glucose 188 mg/dl 149 mg/dl 168 mg/dl White Blood Count 6.73 K/uL Red Blood Count 5.42 M/uL Hemoglobin 16.1 g/dL Hematocrit 48.7 % Mean Corpuscular Volume 89.9 fL Mean Corpuscular Hemoglobin 29.7 pg Mean Corpuscular Hemoglobin Concent 33.1 g/dl RDW Standard Deviation 53.9 fL RDW Coefficient of Variation 16.7 % Platelet Count 131 K/uL Mean Platelet Volume 10.1 fL Sodium Level 138 mmol/L Potassium Level 3.6 mmol/L Chloride Level 97 mmol/L Carbon Dioxide Level 36 mmol/L Anion Gap 5.0 mmol/L Blood Urea Nitrogen 46 mg/dl Creatinine 1.90 mg/dl Est Creatinine Clear Calc Drug Dose 37.5 ml/min Estimated GFR () 39.4 Estimated GFR (Non- 34.0 BUN/Creatinine Ratio 24.2 Random Glucose 158 mg/dl Calcium Level 9.1 mg/dl Test 02/06/17 16:14 Bedside Glucose 268 mg/dl Assessment and Plan 76yo male: 1. acute/chronic systolic CHF - acute component nearly resolved. Will stop bumex after tonight's dose. Recheck BMP in am. Recheck exam in am to determine if additional IV bumex is needed. Cont aldactone and beta jaimee. 2. pacemaker status - s/p explantation of old pacemaker and implantation of new BiV pacemaker. 3. a. fib - chronic; resume coumadin tomorrow if ok with cardiology. 4. h/o v-tach - AICD in place. On amiodarone. 5. T2DM - reasonable control with current insulin regimen. 6. CKD stage 3 - creatinine continues to be stable. 7. hypothyroidism - cont synthroid; TSH this admission compensated. 8. DVT proph - hold heparin today; SCDs in meantime. 9. thrombocytopenia - chronic; CBC today w/ stable platelet count. 10. hypokalemia - resolved. 11. left upper chest wall pain - likely all due to the surgery itself. Will obtain cxr tonight just to be sure there is no pneumothorax. d/c home tomorrow or Thursday if doing well from CHF standpoint and pacemaker standpoint updated at bedside Continued [facility] stay due to: multiple IV medications needed Discharge planning: home
[2017-02-06] MEDS: INSULIN GLARGINE SOLOSTAR 100 UNITS/ML 3 ML PEN SC SCH (20:19)
--- NOTE | 2017-02-06 20:23 | DIAGNOSTIC IMAGING REPORT ---
TWO VIEW CHEST CLINICAL HISTORY: Dyspnea. FINDINGS: PA and lateral chest radiographs are compared to study dated 02/01/2017. The PA view is degraded by patient rotation. A 2-lead cardiac AICD is unchanged in position and largely obscures the left upper chest. The heart is enlarged and there is atherosclerotic calcification of the thoracic aorta. The pulmonary vasculature is noncongested. Congestive change has resolved from 02/01/2017. Chronic interstitial thickening is unchanged from previous. Bibasilar atelectasis is observed. There is no airspace consolidation, pleural effusion, or pneumothorax identified. The skeletal structures are osteopenic. Degenerative change is noted throughout the thoracic spine. IMPRESSION: 1. Cardiomegaly and AICD. There is no radiographic evidence of congestive failure. 2. There is no airspace consolidation or pleural effusion. Electronically signed by: Tramaine Orozco M.D. 02/06/2017 8:20 PM Dictated Date/Time: 02/06/2017 8:18 PM
[2017-02-07] MEDS: CEFAZOLIN IV 1,000 MG in DEXTROSE 5% 50ML 50 ML IV SCH ×2 (02:16→10:06)
[2017-02-07 03:56] VITALS: BP 102/66; PULSE 69; TEMP 36.7; O2SAT 96
[2017-02-07] MEDS: LEVOTHYROXINE 75 MCG TAB PO SCH (04:08)
[2017-02-07] MEDS: INSULIN ASPART 100 UNITS/ML 3 ML PEN SC SCH ×4 (07:00→12:11)
[2017-02-07 07:28] LABS: BUN/CREATININE RATIO 22.4 (10-20); CALCIUM 8.6 mg/dl (8.5-10.1); CREATININE 2.1 mg/dl (0.60-1.40); MAGNESIUM 2.2 mg/dl (1.8-2.4); POTASSIUM 4.4 mmol/L (3.5-5.1)
[2017-02-07 07:40] VITALS: BP 118/74; PULSE 69; TEMP 36.4; O2SAT 94
--- NOTE | 2017-02-07 07:42 | Cardiology Follow-Up ---
Subjective Date of Service: Feb 07, 2017. Pt evaluation today including: conversation w/ patient, physical exam, lab review, review of studies, review of inpatient medication list History of Present Illness This is a very pleasant [place]ian-speaking gentleman who knows some Slovak but is a bit hard to talk to. He has a history of coronary artery disease which includes LAD stent placement, he also has hypertension, hypercholesterolemia, mild chronic renal disease and diabetes mellitus. He also has permanent atrial fibrillation and congestive heart failure. He had an ICD implanted on February 20, 2011 for primary prevention of sudden cardiac as well as bradycardia support. LVEF 09/2015 was 20-25%, he has been on higher doses of beta blockade but these had to be reduced due to intolerance and he is also on spironolactone which was discontinued in early 2014, although I can't tell from the chart exactly why it was discontinued. He was also on remigio inhibitors in the past and these also have been discontinued. He does have chronic renal insufficiency. He has had increased frequency of nonsustained ventricular tachycardia (and probably premature ventricular beats as well) over the past 9 months, additionally he has had several episodes of ventricular tachycardia requiring ICD therapy since the end of March 2016, including early August 2016 where he presented with brief syncope, witnessed, which turned out to be ventricular tachycardia or fibrillation appropriately treated by the device with an ICD shock. He presents now with progressive shortness of breath and edema. He was found to be in congestive heart failure and was admitted. He has been diuresed since admission, he has lost a significant amount of weight and has had reduction in his peripheral edema. With a progressively worsening symptoms of congestive heart failure and a very wide paced QRS complex we upgraded his ICD to a biventricular unit on 2016. He has had some diaphragmatic pacing overnight, but in general feels better. Social History Smoking Status: Never Smoker History of Alcohol Use: No Review of Systems Respiratory: No cough, No dyspnea at rest Cardiac: + chest pain, + see HPI, No orthopnea Medications Cardiovascular: Item Value Date Time Potassium Chloride 40 meq 02/05/17 0900 (Klor-Con Tab) TID/PO 02/06/17 194 Isosorbide 60 mg 02/02/17 0900 Mononitrate QAM/PO 02/06/17 1151 (Imdur Ext Rel Tab) Spironolactone 25 mg 02/02/17 0900 (Aldactone Tab) QAM/PO 02/06/17 1151 Carvedilol 12.5 mg 02/01/17 2100 (Coreg Tab) BID/PO 02/06/171941 Simvastatin 40 mg 02/01/17 2100 (Zocor Tab) QPM/PO 02/06/171941 Objective Vital Signs Past 12 Hours Date Time Temp Pulse Resp B/P Pulse Ox O2 Delivery O2 Flow Rate FiO2 02/07/17 04:00 Room Air 02/07/17 03:56 36.7 69 21 102/66 96 Room Air 02/07/17 00:01 Room Air 02/06/17 23:17 36.5 70 21 101/65 95 Room Air 02/06/17 20:00 Room Air 02/06/17 19:40 36.5 70 18 106/61 92 Room Air Last Recorded Weight-Kilograms: 91.400 Intake & Output 8-Hour Column 02/06/17 02/07/17 02/07/17 16:00 00:00 08:00 Intake Total 400 ml 357 ml Output Total 0 ml Balance 400 ml 357 ml 24-Hour Column 02/07/17 08:00 Intake Total 757 ml Output Total 0 ml Balance 757 ml Physical Exam Constitutional: Level of Distress: NAD Lungs: Auscultation: rales/crackles on the left, rales/crackles on the right Cardiovascular: Heart Auscultation: irregular rate rhythm ICD insertion site looks clean and dry, no significant swelling or ecchymosis Data Laboratory Results: Last 24 Hours Test 02/06/17 07:59 02/06/17 11:26 02/06/17 16:14 02/06/17 20:14 Bedside Glucose 149 mg/dl 168 mg/dl 268 mg/dl 153 mg/dl Test 02/07/17 06:11 02/07/17 06:59 Sodium Level 136 mmol/L Potassium Level 4.4 mmol/L Chloride Level 99 mmol/L Carbon Dioxide Level 32 mmol/L Anion Gap 5.0 mmol/L Blood Urea Nitrogen 47 mg/dl Creatinine 2.10 mg/dl Est Creatinine Clear Calc Drug Dose 33.9 ml/min Estimated GFR () 34.9 Estimated GFR (Non- 30.1 BUN/Creatinine Ratio 22.4 Random Glucose 158 mg/dl Calcium Level 8.6 mg/dl Magnesium Level 2.2 mg/dl Bedside Glucose 135 mg/dl Imaging: Chest x-ray shows good lead position, no pneumothorax EKG: Underlying atrial fibrillation with appropriate biventricular pacing Telemetry reviewed: Appropriate pacemaker function Lead evaluation shows excellent pacing and sensing characteristics. ICD adjusted to minimize diaphragmatic pacing. Assessment and Plan 1. Congestive heart failure: He has had exacerbation of his congestive heart failure prompting this admission, the reason for it are not clear. He has responded well to diuresis. He is certainly class III NYHA heart failure classification. He does have global hypokinesis based on his echocardiogram and his left ventricular ejection fraction is severely reduced. Agree with continued diuresis. He seems to feel better following ICD upgrade, however his early. 2. Left bundle-branch block: He has a very wide paced ventricular complex, approaching 200 ms. His intrinsic conduction is also extremely wide. He has global hypokinesis and a markedly reduced ejection fraction and class III congestive heart failure. He is a good candidate for resynchronization therapy. 3. Cardiomyopathy: Although he has coronary artery disease his cardiomyopathy may in part be nonischemic. He has global hypokinesis and severe left ventricular dysfunction with an extremely wide paced QRS complex as well as a wide intrinsic complex. He is probably in a group which responds well to resynchronization therapy. That may take some time however. 4. Postop day #1: His ICD is working well, he did have some diaphragmatic pacing which I believe we can alleviate by programmed to a different vector which we did. Pacing and sensing characteristics are good, chest x-ray shows good lead position. Incision looks clean and dry. Stable for discharge from my perspective. We will arrange follow-up for Thursday if he goes home today. Thank you for allowing me to participate in his care.
[2017-02-07 08:00] VITALS: O2SAT 96
[2017-02-07] MEDS: POLYETHYLENE (MIRALAX) 17 GM PACK PO SCH (08:08)
[2017-02-07] MEDS: ALLOPURINOL 100 MG TAB PO SCH (08:10)
[2017-02-07] MEDS: POTASSIUM CHLORIDE 20 MEQ TABCR PO SCH (08:10)
[2017-02-07] MEDS: CARVEDILOL 12.5 MG TAB PO SCH (08:10)
[2017-02-07] MEDS: SENNA 8.6 MG TAB PO SCH (08:10)
[2017-02-07] MEDS: CALCITRIOL 0.25 MCG CAP PO SCH (08:11)
[2017-02-07] MEDS: ISOSORBIDE MONONITRATE 60 MG TABCR PO SCH (08:11)
[2017-02-07] MEDS: SPIRONOLACTONE 25 MG TAB PO SCH (08:11)
[2017-02-07] MEDS: FLUTICASONE PROPIONATE NA SPR 16 GM BTL NAE SCH (08:22)
[2017-02-07] MEDS: IPRATROPIUM BROMIDE NASAL SPRAY 0.06% 15ML NAE SCH (08:22)
--- NOTE | 2017-02-07 08:22 | DIAGNOSTIC IMAGING REPORT ---
CHEST 2 VIEWS ROUTINE HISTORY: Pacemaker placement. COMPARISON: Chest 02/06/2017. FINDINGS: A left-sided pacemaker/defibrillator is again noted. The leads are intact. No pneumothorax. No pleural effusions. Bibasilar interstitial thickening has slightly improved. No evidence for pulmonary edema. The heart remains enlarged. IMPRESSION: Improvement in the bibasilar interstitial thickening. Stable cardiomegaly. No pneumothorax. Electronically signed by: Robert Gamez M.D. 02/07/2017 8:20 AM Dictated Date/Time: 02/07/2017 8:19 AM
[2017-02-07 11:45] VITALS: BP 100/63; PULSE 71; TEMP 36.4; O2SAT 95
[2017-02-07 12:00] VITALS: O2SAT 94
[2017-02-07] MEDS ORDERED: BUME2TAB3 PO (12:07)
[2017-02-07] MEDS ORDERED: SPR25 PO (12:07)
[2017-02-07] MEDS ORDERED: CMD5 PO (12:24)
[2017-02-07] MEDS ORDERED: CRD200 PO (12:24)
[2017-02-07] MEDS ORDERED: RCL25 PO (12:24)
--- NOTE | 2017-02-07 12:47 | Discharge Instructions ---
Discharge Instructions Date of Service Feb 07, 2017. Admission Reason for Admission: Acute Congestive Heart Failure Discharge Discharge Diagnosis / Problem: Congestive Heart Failure; Pacemaker Revision. Discharge Goals Goal(s): Improve disease control, Learn about illness, Diagnostic testing, Therapeutic intervention Activity Recommendations Activity Limitations: as noted below Lifting Limitations: no more than 10 pounds ACTIVITY RECOMMENDATIONS following pacemaker implantation: * Do not raise the LEFT arm over your head for 2 weeks. SPECIAL CARE INSTRUCTIONS: * If bleeding occurs, apply direct pressure to area for 5 minutes. * Call your doctor if you have severe pain, fever, drainage or bleeding at site. * Keep dressing on and dry for 48 hours then remove. * Keep any scheduled doctor's appointment. * Implant Card - hand held device with website information given. SKIN IRRITATION: * You may experience some redness and/or swelling in the area where radiation was administered. If any skin irritation occurs, please contact your family physician. . Instructions / Follow-Up Instructions / Follow-Up Congestive Heart Failure Instructions: Call your Primary Care doctor if any of the following symptoms or problems start or get worse: * Shortness of breath or difficulty breathing * Wake up at night short of breath * Chest pain * Cough * Swelling of your hands, feet, or legs * More fatigued or tired with your normal activity * Palpitations - sudden fast heart beats WEIGHT * Weigh yourself every morning after using the bathroom. * Use the same scale. * Wear the same amount of clothing. * Write your weight down on a chart. * Call your Primary Care doctor or your heart doctors if you gain more than 2-3 pounds in 1-2 days. DO NOT WAIT TO CALL. MEDICATIONS * Use this discharge instruction sheet for medication instructions. * Take your medications at the time your doctor ordered. * Do not skip a dose of your medicines. * If you miss a dose of medicine, take it as soon as possible, but DO NOT DOUBLE A DOSE. * Read your medicine information when you get home. * Know all of the side effects of your medicine. If in doubt, ask your pharmacist * Call your Primary Care doctor's office if you have any side effects. * Be sure all of your doctors know what medicine and herbs you take (including cold, flu, and herbal medicine). Take the following with you to your follow-up doctor appointments: * Weight Chart * Medication List * List of questions Do not drink excessive alcohol, beer or wine. OTHER INSTRUCTIONS FROM DR. HEATH: 1. PLEASE TAKE NOTE OF THE FOLLOWING CHANGES TO YOUR WATER PILLS: * YOUR BUMEX DOSE HAS BEEN CHANGED TO 2MG IN THE MORNING AND 2MG IN THE AFTERNOON. A NEW PRESCRIPTION HAS BEEN SENT TO [facility] FOR YOU. * ANOTHER TYPE OF WATER PILL HAS BEEN ADDED. IT IS CALLED SPIRONOLACTONE ( ALDACTONE). TAKE THIS EVERY MORNING EACH DAY. A NEW PRESCRIPTION HAS BEEN SENT TO [facility] FOR YOU. * PLEASE NOTE THAT THE METAZOLONE HAS BEEN STOPPED FOR NOW. PLEASE PUT THIS ASIDE FOR NOW AND DO NOT TAKE. 2. Resume your coumadin TODAY. Your coumadin schedule is as follows: * 5mg on Tuesdays, , and Saturdays * 2.5mg on Mondays, Wednesdays, and Fridays * please have your INR rechecked on THURSDAY when you see Dr. Anderson 3. Please, Please, Please watch your salt intake. Limit your salt to 2000mg a day. High salt foods include the following - * fast foods ([employer], [employer], etc) * fried foods (fried chicken, pork, etc) * frozen foods (TV dinners, etc) * canned soups and home-made soups -- these tend to be loaded with salt * throw away the salt shaker if possible! 4. Limit your TOTAL FLUID INTAKE to 1500cc a day (1.5 liters). This is ALL of your liquid intake over a 24 hour period. 5. Again check your WEIGHT EVERY MORNING ON A SCALE WHEN YOU WAKE UP. CALL your doctors if you gain more than 2-3 pounds in 1-2 days. Call right away if this happens. 6. Follow-Up Appointments: See Dr. Anderson this Thursday as scheduled. See Dr. Reid's office this coming week as scheduled. Happy Easter! Dr. Heath Current Hospital Diet Patient's current hospital diet: Diabetes Type 2 Diet, Low Sodium Diet (2gm Na) Discharge Diet Recommended Diet: Low Sodium Diet (2gm Na), Diabetes Type 2 Diet Fluid Restriction: 1500 ml (6 cups) Procedures Procedures Performed: echocardiogram removal of old pacemaker; placement of NEW pacemaker. Pending Studies Studies pending at discharge: no Laboratory Results Hemoglobin A1c Test 01/05/17 11:35 Range/Units Estimated Average Glucose 154 mg/dl Hemoglobin A1c 7.0 H 4.5-5.6 % Medical Emergencies . Who to Call and When: Call 911 or go to the Emergency Room if: * If at any time you feel your situation is an emergency * You have tightness or pain in your chest that does not go away with rest or Nitroglycerin * You are very short of breath even with rest . Non-Emergent Contact Non-Emergency issues call your: [employer] Programmer Call Non-Emergent contact if: temperature is above 100.5, your pain is not controlled, your pain is worsening, your pain is unusual for you, your pain is concerning you, wound has increased drainage, wound has increased redness, wound has increased pain, you have any medication questions . . "Provider Documentation" section prepared by Malvin Heath. VTE Core Measure Inpt VTE Proph given/why not?: Contraindicated
[2017-02-07 13:05] VITALS: BP 100/63; PULSE 71; TEMP 36.4; O2SAT 94
--- NOTE | 2017-02-09 05:28 | Discharge Summary ---
Discharge Summary Date of Service Feb 09, 2017. Discharge Summary Admission Date: Feb 01, 2017 at 18:14 Discharge Date: Feb 07, 2017 Discharge Disposition: Home Principal Diagnosis: acute/chronic systolic CHF Problems/Secondary Diagnoses: 1. atrial fibrillation 2. h/o ventricular tachycardia 3. pacemaker/ICD status 4. T2DM 5. CKD stage 3 6. hypokalemia - resolved 7. hypothyroidism 8. pulmonary HTN 9. mild aortic stenosis 10. thrombocytopenia 11. mod-severe mitral regurgitation 12. CAD s/p stents in the past 13. ischemic cardiomyopathy 14. HTN 15. hyperlipidemia Immunizations: Have You Had Influenza Vaccine: No Influenza Vaccine Date: Jul 15, 2010 History of Tetanus Vaccine?: Yes Tetanus Immunization Date: Jul 15, 2010 History of Pneumococcal: Yes Pneumococcal Date: March 03, 2009 History of Hepatitis B Vaccine: No Procedures: 1. echocardiogram: * Severe left ventricular systolic dysfunction - EF 20.25%. * Mild to moderate right ventricular systolic dysfunction. * Biatrial dilatation. * Moderate to severe mitral regurgitation. * Mild to moderate tricuspid regurgitation. * Mild pulmonic regurgitation. * Moderate pulmonary hypertension. * Mild aortic stenosis. * Comapred to an echo of 09/01/2016 there is no significant change in the ventricular function. * The valvular regurgitation is more prominent on current echo. 2. 02/06/17 - Left ventricular lead implantation, Single-chamber ICD explantation, Biventricular ICD implantation - Pola Anderson MD The ICD is a Medtronic Amplia MRI Quad CRTD SureScan, model #HLBU3P1, serial # [id number]. This is an MRI compatible system. Consultations: 1. cardiology - KAYE Hilliard 2. electrophysiology - Pola Anderson MD 3. physical therapy 4. occupational therapy Medication Reconciliation New Medications: Amiodarone HCl (Amiodarone HCl) 200 Mg Tab 200 MG PO DAILY, #30 TAB 2 Refills Warfarin Sod (Coumadin) 5 Mg Tab 5 MG PO DIRECTED, #30 2 Refills 5mg on Tuesdays//Saturdays; 2.5mg on Mondays/Wednesdays/Fridays/Sundays. Calcitriol (Calcitriol) 0.25 Mcg Cap 0.25 MCG PO MWF, #30 CAP 2 Refills Spironolactone (Spironolactone) 25 Mg Tab 25 MG PO QAM, #30 TAB 5 Refills for your heart failure and fluid retention Changed Medications: Bumetanide (Bumex) 2 Mg Tab 2 MG PO BID, #60 TAB 5 Refills (Changed from: DAILY; Refills: ) take 1 tablet every morning and 1 tablet every afternoon Continued Medications: Allopurinol (Zyloprim) 100 Mg Tab 100 MG PO BID, TAB Carvedilol (Coreg) 6.25 Mg Tab 2 TAB PO BID for 90 Days, #360 TAB 3 Refills Fluticasone Propionate (Nasal) (Flonase Allergy Relief) 50 Mcg/Act Spr 1 SPRAYS ALEX DAILY Insulin Aspart (Novolog Flexpen) 100 Units/Ml Inj 8 UNITS SC WM Insulin Glargine (Lantus Solostar) 100 Unit/Ml Inj 15 UNITS SC HS, PEN Ipratropium [place] (Nasal) (Ipratropium [place]) 0.06 % Spr 2 SPRAYS ALEX BID Isosorbide Mononitrate Ext Rel (Imdur Ext Rel) 60 Mg Ertab 60 MG PO QAM, 0 Refills Levothyroxine Sodium (Levothyroxine Sodium) 75 Mcg Tab 75 MCG PO DAILY, 3 Refills Nitroglycerin (Nitrostat) 0.4 Mg Tab 0.4 MG UT UD PRN for Chest Pain, 0 Refills Potassium Ext Rel (Klor-Con) 20 Meq Tabcr 60 MEQ PO DAILY, TAB Simvastatin (Zocor) 40 Mg Tab 40 MG PO QPM, TAB Discontinued Medications: Furosemide (Lasix) 40 Mg Tab 40 MG PO DAILY, TAB Metolazone (Zaroxolyn) 2.5 Mg Tab 2.5 MG PO DAILY, TAB Referrals At Discharge Follow up Referrals: Scrap Drop Engineer Referral - 02/10/17 with Pola Anderson M.D. Discharge Exam Physical Exam: General Appearance: no apparent distress ENT: pharynx normal Neck: no JVD Respiratory/Chest: no respiratory distress, no accessory muscle use, + rales (scant dry rales bases only) Cardiovascular: regular rate, rhythm, no gallop, normal peripheral pulses, + systolic murmur (2/6 LSB) Abdomen / GI: normal bowel sounds, non tender, soft, no organomegaly Extremities: no pedal edema Neurologic/Psychiatric: alert, oriented x 3 Skin: + pertinent finding (stasis changes b/l legs ) Hospital Course HISTORY OF PRESENT ILLNESS: Mr. Davidson is a 76-year-old male who suffers from chronic systolic heart failure with an EF of 20%-25%. The patient was [facility] ago where he was given Lasix, sliding scale in addition to his significant Bumex and metolazone dosing. The patient did not improve, comes in with chest pain, shortness of breath, orthopnea and abdominal girth fullness. He feels his weight is up 5 pounds despite escalation of his diuretics at home. At time of admission his exam was consistent with acute on chronic systolic heart failure and he was begun on IV diuretics. HOSPITAL COURSE: The patient's hospital stay was marked by improvement in his CHF symptoms with IV diuretics. He had an 8-kg weight loss while here with ultimate discontinuation of any supplemental NC O2. He was started on aldactone in addition to his normal cardiac medications including beta jaimee. He is not a candidate for ARTURO/ARB due to CKD. I suspect some element of dietary indiscretion contributing to his decompensated CHF. At discharge the following were recommended for diuretics - * bumex 2mg QAM and 2mg qafternoon * aldactone 25mg QAM * he was asked to hold his metazolone for now but he may need it again depending on his clinical status and weights He was seen in consult by Dr. Pola Anderson who felt that upgrading his single chamber pacemaker to a BiV pacemaker may help his CHF. Thus, on 02/06/17, he underwent explantation of his old pacemaker and implantation of a new BiV pacemaker without complication. On day of discharge his coumadin was resumed. He will need repeat INR at time of hospital follow-up with Dr. Anderson. His coumadin dosage was NOT changed at discharge. All other medical problems remained stable throughout his stay. He was counseled on the importance of fluid/salt restriction AND daily weight checks at his home. CHF instructions were provided at discharge. Total Time Spent: Greater than 30 minutes This includes examination of the patient, discharge planning, medication reconciliation, and communication with other providers. Discharge Instructions Please refer to the electronic Patient Visit Report (Discharge Instructions) for additional information. Follow-Up 1. Gabby Ingram PA-C, February 12 at 1:[address] Anderson - 02/10/17 - for pacer/ICD check Additional Copies To Gabby Ingram PA-C; Pola Anderson M.D.; Sb Hudson,P.A.; Noel Reid M.D.
[2017-04-30] MEDS ORDERED: ISOS60TA25 PO (03:30)
[2017-04-30] MEDS ORDERED: NTRGSL/4 UT (03:30)
[2017-04-30] MEDS ORDERED: SIMV40TA4 PO (08:27)
[2017-04-30] MEDS ORDERED: INSDGIPEN SC (15:57)
[2017-04-30] MEDS ORDERED: NVLGI/PEN SC (15:57)
[2017-04-30] MEDS ORDERED: IPRA0.06 NAE (21:13)
== END 2017-02-07 13:25 | disposition home or self-care (01) | DRG 223 ==
LOC: ENRESERVTM → ENRESERVDT → C.EDB 15:21 → C.MED 18:14 → C.2T 02-06 11:08
PROVIDERS: ADMIT Internal Medicine; ATTEND Internal Medicine
PROC: 0JH608Z Insertion of Defibrillator Generator into Chest Subcutaneous Tissue and Fascia, Open Approach (ICD-10-PCS; principal; 2017-02-06 08:00)
PROC: 02HL3KZ Insertion of Defibrillator Lead into Left Ventricle, Percutaneous Approach (ICD-10-PCS; principal; 2017-02-06 08:00)
PROC: B211YZZ Fluoroscopy of Multiple Coronary Arteries using Other Contrast (ICD-10-PCS; principal; 2017-02-06 08:00)
PROC: B5171ZA Fluoroscopy of Left Subclavian Vein using Low Osmolar Contrast, Guidance (ICD-10-PCS; principal; 2017-02-06 08:00)
PROC: 0JPT0PZ Removal of Cardiac Rhythm Related Device from Trunk Subcutaneous Tissue and Fascia, Open Approach (ICD-10-PCS; principal; 2017-02-06 08:00)
DX: I50.23 Acute on chronic systolic (congestive) heart failure (principal); E11.9 Type 2 diabetes mellitus without complications; K21.9 Gastro-esophageal reflux disease without esophagitis; E03.9 Hypothyroidism, unspecified; K59.00 Constipation, unspecified; I25.10 Atherosclerotic heart disease of native coronary artery without angina pectoris; I48.2 Chronic atrial fibrillation; I27.2 Other secondary pulmonary hypertension; I12.9 Hypertensive chronic kidney disease with stage 1 through stage 4 chronic kidney disease, or unspecified chronic kidney disease; E87.6 Hypokalemia; I34.0 Nonrheumatic mitral (valve) insufficiency; D69.6 Thrombocytopenia, unspecified; E78.5 Hyperlipidemia, unspecified; Z95.0 Presence of cardiac pacemaker; Z79.4 Long term (current) use of insulin; Z87.891 Personal history of nicotine dependence; Z95.5 Presence of coronary angioplasty implant and graft; Z79.01 Long term (current) use of anticoagulants; Z82.49 Family history of ischemic heart disease and other diseases of the circulatory system; Z83.3 Family history of diabetes mellitus; N18.3 Chronic kidney disease, stage 3 (moderate); I25.5 Ischemic cardiomyopathy; E11.65 Type 2 diabetes mellitus with hyperglycemia

== ENCOUNTER → 2017-03-19 | Outpatient (CLI) | payer OTHER ==
[~2017-03-19] MED LIST changes: +AMIO200T4 PO; +ANT25 PO; +AZIT-57 PO; -BUME1TAB PO; +BUME2TAB3 PO; +CALC0.2510 PO; +CARV6.252 PO; +CEFD1CAP14 PO; +CMD5 PO; -CRG625 PO; -FLUT0.0529 NAE; +FLUT0.15 NAE; +GABA-112 PO; +INSDGIPEN SC; -INSUINJ14 SC; -INSUINJ4 SQ; +IPRA0.06 NAE; +ISOS60TA25 PO; +LEVO75TA5 PO; +MECL1TAB42 PO; +METO2.5T PO; +NTRGSL/4 UT; +NVLGI/PEN SC; +POTA1POW PO; +PRDXLUD PO; -PRLSR20 PO; +RCL25 PO; +SIMV40TA2 PO; +SIMV40TA4 PO; +SPIR25TA PO; +SPR25 PO; +TRAM-10 PO; +TRAZ50TA35 PO
[2017-03-19 11:17] LABS: CALCIUM 9.5 mg/dl (8.5-10.1)
[2017-03-19 11:18] LABS: BLOOD UREA NITROGEN 44 mg/dl (7-18); BUN/CREATININE RATIO 22.9 (10-20); CARBON DIOXIDE 30 mmol/L (21-32); CHLORIDE 104 mmol/L (98-107); GLUCOSE 135 mg/dl (70-99); POTASSIUM 4.8 mmol/L (3.5-5.1); SODIUM 140 mmol/L (136-145)
== END | disposition home or self-care (01) ==
LOC: C.LAB1850 09:51
PROVIDERS: ATTEND Physician Assistant
DX: I50.22 Chronic systolic (congestive) heart failure (principal)

== ENCOUNTER 2017-04-08 12:22 | Emergency (ER) | payer OTHER ==
[~2017-04-08] VITALS: Ht 167.6 cm; Wt 96.3 kg
[~2017-04-08 12:22] MED LIST changes: -AMIO200T4 PO; -ANT25 PO; -AZIT-57 PO; -CALC0.2510 PO; -CEFD1CAP14 PO; -GABA-112 PO; -INSDGIPEN SC; -IPRA0.06 NAE; -ISOS60TA25 PO; -LEVO75TA5 PO; -MECL1TAB42 PO; -METO2.5T PO; -NTRGSL/4 UT; -NVLGI/PEN SC; -POTA1POW PO; -PRDXLUD PO; -SIMV40TA2 PO; -SIMV40TA4 PO; -SPIR25TA PO; -TRAM-10 PO; -TRAZ50TA35 PO; -WARF5TAB90 PO
[2017-04-08 12:24] VITALS: TEMP 36.7; Ht 167.6 cm; Wt 96.3 kg
[2017-04-08 12:41] VITALS: O2SAT 92
--- NOTE | 2017-04-08 13:27 | EMERGENCY ROOM VISIT NOTE ---
History Report prepared by Stephanie: Sarah Terrazas Under the Supervision of: Dr. Dottie Roche D.O. First contact with patient: 13:05 Chief Complaint: CARDIAC ASSESSMENT Stated Complaint: ARTHRITIS, PAIN LT SIDE OF HEAD, PRESSURE IN HEAD Nursing Triage Summary: pt reports that X 4-5 days has had L side cp with L side CORMIER and when " I turn my head I feel drunk" History of Present Illness The patient is a 76 year old male who presents to the Emergency Room with complaints of a persistent headache that began five days ago. He currently rates his discomfort as a 6/10 in severity, describing his discomfort as a pressure. The patient reports that he has had this persistent headache and associates dizziness with his symptoms. He reports that the dizziness is intermittent. He reports a history of vertigo. The patient states that his pain radiates from the left side of his head into his neck. He additionally notes a history of previous sinus infections and states that his symptoms today feel similar. States that he has had this type of neck pain before it has been treated to his arthritis, and that getting a massage helps. The patient reports a sore throat and has had multiple sick contacts with strep throat recently, however he has not had any fevers, sore throat, nasal congestion or rhinorrhea.. He additionally notes left sided chest pain today. The patient denies any ear pain, cough, shortness of breath, nausea, vomiting, or back pain. The patient's granddaughter reports that the patient had a pacemaker placed 1 year ago. She reports that the patient has a history of congestive heart failure. After reviewing the patients EMR, the patient was recently evaluated in the hospital two months ago for CHF and has an ejection fraction of 20-25%. Patient's daughter helps with translation is patient's primary early Mosotho- speaking. Source of History: patient Onset: five days ago Position: head Symptom Intensity: 6/10 Quality: pressure Timing: other (persistent) Associated Symptoms: + sorethroat, + neck pain, + chest pain, No cough, No SOB, No nausea, No vomiting, No back pain Note: Associated Symptoms: dizziness Review of Systems See HPI for pertinent positives & negatives. A total of 10 systems reviewed and were otherwise negative. 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 (14) Thyroid dysfunction (15) Two stents Family History Diabetes mellitus FH: cancer Heart disease Hypertension Kidney disease Kidney stones Social History Smoking Status: Never Smoker Alcohol Use: none Drug Use: none Marital Status: Housing Status: lives with family Occupation Status: retired Current/Historical Medications Scheduled Allopurinol (Zyloprim), 100 MG PO BID Amiodarone HCl (Amiodarone HCl), 200 MG PO DAILY Bumetanide (Bumex), 2 MG PO BID Calcitriol (Calcitriol), 0.25 MCG PO MWF Carvedilol (Coreg), 2 TAB PO BID Fluticasone Propionate (Nasal) (Flonase Allergy Relief), 1 SPRAYS ALEX DAILY Insulin Aspart (Novolog Flexpen), 8 UNITS SC WM Insulin Glargine (Lantus Solostar), 15 UNITS SC HS Ipratropium [place] (Nasal) (Ipratropium [place]), 2 SPRAYS ALEX BID Isosorbide Mononitrate Ext Rel (Imdur Ext Rel), 60 MG PO QAM Levothyroxine Sodium (Levothyroxine Sodium), 75 MCG PO DAILY Potassium Ext Rel (Klor-Con), 60 MEQ PO DAILY Simvastatin (Zocor), 40 MG PO QPM Spironolactone (Spironolactone), 25 MG PO QAM Warfarin Sod (Coumadin), 5 MG PO DIRECTED Scheduled PRN Nitroglycerin (Nitrostat), 0.4 MG UT UD PRN for Chest Pain Allergies Coded Allergies: No Known Allergies (Verified , 04/08/17) Physical Exam Vital Signs Date Time Temp Pulse Resp B/P (MAP) Pulse Ox O2 Delivery O2 Flow Rate FiO2 04/08/17 17:52 71 18 120/82 95 04/08/17 16:42 71 04/08/17 16:39 72 18 122/79 96 Room Air 04/08/17 15:48 73 16 103/54 98 Nasal Cannula 2.0 04/08/17 15:01 70 18 105/68 97 Nasal Cannula 2.0 04/08/17 14:10 71 16 107/63 95 Room Air 04/08/17 13:33 70 16 95 04/08/17 12:41 92 Nasal Cannula 2.0 04/08/17 12:39 89 Room Air 04/08/17 12:39 73 18 113/66 89 Room Air 04/08/17 12:37 71 04/08/17 12:24 36.7 83 18 123/81 93 Room Air Physical Exam GENERAL: alert, well appearing, well nourished, no distress, non-toxic HEAD: No reproduciple pain to palpation over the left advent, no masses, small area of pain at the left frontal/parietal junction of his scalp that may be from a small sebaceous cyst, no overlying erythema, no ecchymosis, no evidence of trauma, no surrounding edema EYE EXAM: normal conjunctiva, PERRL and EOM's grossly intact OROPHARYNX: no exudate, no erythema, lips, buccal mucosa, and tongue normal and mucous membranes are moist NECK: supple, no nuchal rigidity, no adenopathy, non-tender LUNGS: Diminished breath sounds. Clear to auscultation. Normal chest wall mechanics. No wheezes rhonchi or rales. HEART: no murmurs, S1 normal and S2 normal ABDOMEN: abdomen soft, non-tender, normo-active bowel sounds, no masses, no rebound or guarding. BACK: Back is symmetrical on inspection and there is no deformity, no midline tenderness, no CVA tenderness. SKIN: no rashes and no bruising UPPER EXTREMITIES: upper extremities are grossly normal. Normal pulses and normal cap refills LOWER EXTREMITIES: No pitting edema. Normal pulses and normal cap refills NEURO EXAM: Normal sensorium, cranial nerves II-XII grossly intact, normal speech, no gross weakness of arms, no gross weakness of legs. Medical Decision & Procedures ER Provider Diagnostic Interpretation: Radiology results have been interpreted by the radiologist and reviewed by me. CHEST ONE VIEW PORTABLE HISTORY: cough COMPARISON: Chest 02/07/2017. FINDINGS: No pneumothorax. Left-sided pacemaker/defibrillator is again noted. The heart remains mildly enlarged. No new focal lung consolidations to suggest pneumonia. No evidence for pulmonary edema. Mild bibasilar interstitial thickening is likely chronic. No pleural effusions. IMPRESSION: No significant change compared to the prior study. No acute process. Stable cardiomegaly. Electronically signed by: Robert Gamez M.D. 04/08/2017 2:01 PM Dictated Date/Time: 04/08/2017 2:[address] HEAD WITHOUT CONTRAST (CT) CLINICAL HISTORY: Headache. Dizziness. COMPARISON STUDY: 09/01/2016 TECHNIQUE: Axial CT of the brain is performed from the vertex to the skull base. IV contrast was not administered for this examination. CT DOSE: 537.48 mGy.cm FINDINGS: No intra or extra-axial mass lesions are visualized. There is no CT evidence of acute cortical infarction. There is no evidence of midline shift. There is no acute hemorrhage. No calvarial fractures are visualized. There are minimal white matter hypodensities likely on a small vessel basis. There is no evidence of pathologic ventricular dilatation. There is no evidence of acute sinusitis. Vertebral calcifications are again evident. IMPRESSION: No acute intracranial findings Electronically signed by: Anton Collazo M.D. 04/08/2017 2:51 PM Dictated Date/Time: 04/08/2017 2:50 PM NECK CTA HISTORY: Mental status change TECHNIQUE: Multiaxial CT images of the neck were performed following the intravenous administration of contrast to evaluate the major cervical vessels. Maximum intensity projection images were also obtained. All measurements were calculated based on NASCET criteria. COMPARISON STUDY: None. FINDINGS: The aortic arch and proximal great vessels are widely patent. 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 Partial reconstitution at its distal aspect. Moderate atherosclerotic change] vertebral with no significant stenotic process. 30-40% narrowing of the right carotid bifurcation proximal right internal carotid artery. 5060/% narrowing left internal carotid artery and left bifurcation. Mild scattered plaque formation bilaterally throughout the remaining courses of the right system. IMPRESSION: 1. 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 Partial reconstitution distally. 2. 30-40% narrowing right carotid bifurcation and proximal right internal carotid artery. 3. 50-60% narrowing left internal carotid artery and left carotid bifurcation. Electronically signed by: Harjeet Tellez M.D. 04/08/2017 4:41 PM Dictated Date/Time: 04/08/2017 4:36 PM The status of this report is Signed. Draft = Not yet reviewed or approved by Radiologist. Signed = Reviewed and approved by Radiologist. CT brain angiogram HEAD ANGIO WITH CONTRAST CLINICAL HISTORY: Mental status change TECHNIQUE: Transaxial acquisition with multi axial reformatted images COMPARISON STUDY: None FINDINGS: Negative study. All major structures of the anterior middle and posterior cerebral cerebral circulation are intact IMPRESSION: No acute process. Electronically signed by: Harjeet Tellez M.D. 04/08/2017 4:34 PM Dictated Date/Time: 04/08/2017 4:32 PM Laboratory Results 04/08/17 13:30 Red Blood Count 5.17, Mean Corpuscular Volume 92.8, Mean Corpuscular Hemoglobin 29.6, Mean Corpuscular Hemoglobin Concent 31.9, Mean Platelet Volume 8.9, Neutrophils (%) (Auto) 69.7, Lymphocytes (%) (Auto) 11.4, Monocytes (%) (Auto) 10.5, Eosinophils (%) (Auto) 7.9, Basophils (%) (Auto) 0.3, Neutrophils # (Auto ) 3.99, Lymphocytes # (Auto) 0.65, Monocytes # (Auto) 0.60, Eosinophils # (Auto ) 0.45, Basophils # (Auto) 0.02 04/08/17 13:30 Test 04/08/17 13:30 04/08/17 14:45 White Blood Count 5.72 K/uL (4.8-10.8) Red Blood Count 5.17 M/uL (4.7-6.1) Hemoglobin 15.3 g/dL (14.0-18.0) Hematocrit 48.0 % (42-52) Mean Corpuscular Volume 92.8 fL (80-100) Mean Corpuscular Hemoglobin 29.6 pg (25-34) Mean Corpuscular Hemoglobin Concent 31.9 g/dl (32-36) Platelet Count 111 K/uL (130-400) Mean Platelet Volume 8.9 fL (7.4-10.4) Neutrophils (%) (Auto) 69.7 % Lymphocytes (%) (Auto) 11.4 % Monocytes (%) (Auto) 10.5 % Eosinophils (%) (Auto) 7.9 % Basophils (%) (Auto) 0.3 % Neutrophils # (Auto) 3.99 K/uL (1.4-6.5) Lymphocytes # (Auto) 0.65 K/uL (1.2-3.4) Monocytes # (Auto) 0.60 K/uL (0.11-0.59) Eosinophils # (Auto) 0.45 K/uL (0-0.5) Basophils # (Auto) 0.02 K/uL (0-0.2) RDW Standard Deviation 55.9 fL (36.4-46.3) RDW Coefficient of Variation 16.4 % (11.5-14.5) Immature Granulocyte % (Auto) 0.2 % Immature Granulocyte # (Auto) 0.01 K/uL (0.00-0.02) Erythrocyte Sedimentation Rate 32 mm/hr (0-14) Prothrombin Time 18.8 SECONDS (9.0-12.0) Prothromb Time International Ratio 1.7 (0.9-1.1) Anion Gap 7.0 mmol/L (3-11) Est Creatinine Clear Calc Drug Dose 37.0 ml/min Estimated GFR () 39.4 Estimated GFR (Non- 34.0 BUN/Creatinine Ratio 19.2 (10-20) Calcium Level 8.6 mg/dl (8.5-10.1) Total Bilirubin 0.8 mg/dl (0.2-1) Aspartate Amino Transf (AST/SGOT) 24 U/L (15-37) Alanine Aminotransferase (ALT/SGPT) 28 U/L (12-78) Alkaline Phosphatase 88 U/L (45-117) Troponin I 0.042 ng/ml (0-0.045) Pro-B-Type Natriuretic Peptide 2558 pg/ml (0-900) Total Protein 7.0 gm/dl (6.4-8.2) Albumin 3.1 gm/dl (3.4-5.0) Globulin 3.9 gm/dl (2.5-4.0) Albumin/Globulin Ratio 0.8 (0.9-2) Urine Color YELLOW Urine Appearance CLEAR (CLEAR) Urine pH 5.0 (4.5-7.5) Urine Specific [place] 1.017 (1.000-1.030) Urine Protein NEG (NEG) Urine Glucose (UA) NEG (NEG) Urine Ketones NEG (NEG) Urine Occult Blood NEG (NEG) Urine Nitrite NEG (NEG) Urine Bilirubin NEG (NEG) Urine Urobilinogen NEG (NEG) Urine Leukocyte Esterase NEG (NEG) Laboratory results per my review. Medications Administered Medications (Trade) Dose Ordered Sig/Rajesh Route Start Time Stop Time Status Last Admin Dose Admin Acetaminophen (Tylenol Tab) 650 mg NOW STAT PO 04/08/17 17:10 04/08/17 17:11 DC 04/08/17 17:33 650 MG Warfarin Sodium (Coumadin Tab) 2.5 mg NOW STAT PO 04/08/17 17:25 04/08/17 17:27 DC 04/08/17 17:49 2.5 MG Enoxaparin Sodium (Lovenox Inj) 100 mg NOW ONCE SQ 04/08/17 17:30 04/08/17 17:31 DC 04/08/17 17:49 100 MG ECG Indication: other (dizziness) Rate (beats per minute): 77 Rhythm: other (paced rhythm) Findings: paced rhythm, other (left axis deviation, prolonged QRS and QTC consistent with paced rhythm, no other acute ischemic changes) ED Course 1307: The patient was evaluated in room A4B. A complete history and physical exam was performed. 1559: I reevaluated the patient and he is still having pain and dizziness. I discussed all the exam findings with him at this time. 1710: I discussed the patients radiographic findings with Dr. Tellez, Radiology. He states that the findings are old and after reviewing the patient s EMR, there was a CT angio done in 2013 that suggested left vertebral occlusion. Ordered Tylenol Tab 650 mg PO. 1712: I reevaluated the patient and he is resting comfortably. He states that his Coumadin is typically 2.8, but states that he missed taking a couple of days of his medication. I discussed the exam findings with him and I discussed the treatment plan. He verbalized complete understanding and agreement. He is ready to go home. I used his son at bedside as a naval gunfire spotter. 1725: Ordered Coumadin Tab 2.5 mg PO. 1730: Ordered Lovenox Inj 100 mg SQ. Medical Decision Differential diagnosis includes etiologies such as benign positional vertigo, dehydration, hypovolemia, anemia, tumor, infection, hypoglycemia, electrolyte abnormalities, cardiac sources, intracerebral event, toxicologic, neurologic, as well as others were entertained. Medication Reconciliation: I attest that I have personally reviewed the patient' s current medication list. Blood pressure screening: Patient was found to have normal blood pressure on screening and does not require follow-up. Patient well-appearing here despite complaints and, complicated medical history. Imaging and labs reassuring. Patient with chronically elevated BNP, today's level was elevated but is the lowest it has been on prior results, and patient does not appear to have signs or symptoms of acute CHF. Patient with chronic kidney disease that appears stable. Patient with known LVEF of 20-25% and chronic component of congestive heart failure. No reproducible pain, sedimentation rate negative and I doubt temporal arteritis. Patient points to single small reproducible area of tenderness on the top of his head in an area where he feels there is a palpable mass. Small what appears to be cyst possibly noted, no evidence of infection or edema. No other evidence of acute sinusitis, no clinical evidence for upper respiratory infection, pharyngitis, otitis media. Doubt deep space infection. No evidence of CVA, dissection, occlusion of the vertebral noted on the CTA today is old and recorded on prior ultrasounds. This was discussed with radiology. Given negative troponin after greater than 8 hours of symptoms, doubt ACS, and no acute change in patient's EKG, pacemaker appears to be working properly. Patient's vital signs normal for him compared to prior episodes. No evidence of fever or leukocytosis to suggest underlying infectious etiology. Patient's symptoms improved here with Tylenol and dose of meclizine. Patient was able and related with a steady gait and tolerate by mouth at bedside. All results and concerns as well as possible differential diagnosis discussed with patient and family at bedside who helped in translation. I advised close follow-up with family doctor to reevaluate patient symptoms. Discussed symptoms to watch and return for, use his medications at home. Patient admitted to skipping several doses of Coumadin, he was given additional anticoagulation here, and advised to take his Coumadin as prescribed and have his INR rechecked in 2 days. Doubt symptoms related to PE, central venous sinus thrombus, dissection. One episode of mild hypoxia noted, however all others were negative the patient able to be weaned off and have normal oxygen saturations without any increased work of breathing area did feel this reading was likely in error. Consults Time Called: 1706 Consulting Physician: Dr. Tellez, Radiology Returned Call: 1710 I discussed the patients radiographic findings with Dr. Tellez, Radiology. He states that the findings are old and after reviewing the patients EMR, there was a CT angio done in 2013 that suggested left vertebral occlusion. Impression Primary Impression: Headache Additional Impression: Lightheadedness Scribe Attestation The scribe's documentation has been prepared under my direction and personally reviewed by me in its entirety. I confirm that the note above accurately reflects all work, treatment, procedures, and medical decision making performed by me. Departure Information Dispostion Home / Self-Care Referrals Noel Reid M.D. (PCP) Forms IMPORTANT VISIT INFORMATION Patient Instructions [facility] Additional Instructions Please continue regular medications as prescribed. Please follow up with her family doctor about this episode today. You may try and use the dizzy medication as prescribed. If you have any recurrent headache and dizziness, feels though you're going to pass out, develop chest pain, trouble breathing, vomiting, fevers, vision changes, or you have any other new or concerning symptoms, please return to the emergency room immediately. Your INR today was 1.7. Please have your family doctor recheck this in 2-3 days. Please do not skip any doses of your Coumadin. Problem Qualifiers Primary Impression: Headache Headache type: unspecified Headache chronicity pattern: episodic headache Intractability: not intractable Qualified Codes: R51 - Headache
[2017-04-08 13:40] LABS: BASO % 0.3 %; BASO ABS # 0.02 K/uL (0-0.2); COMPLETE YES; EOS % 7.9 %; IG% 0.2 %; LYMPH % 11.4 %; LYMPH ABS # 0.65 K/uL (1.2-3.4); MEAN CELL VOLUME 92.8 fL (80-100); MEAN CORPUSCULAR HEMOGLOBIN 29.6 pg (25-34); MEAN CORPUSCULAR HGB CONC 31.9 g/dl (32-36); MEAN PLATELET VOLUME 8.9 fL (7.4-10.4); MONO % 10.5 %; NEUT % 69.7 %; PLATELET COUNT 111 K/uL (130-400); RED BLOOD COUNT 5.17 M/uL (4.7-6.1); WHITE BLOOD COUNT 5.72 K/uL (4.8-10.8)
[2017-04-08] MEDS ORDERED: OPTIRAY 320 IV PRN (13:45)
[2017-04-08 13:51] LABS: INR 1.7 (0.9-1.1); PROTHROMBIN TIME (PATIENT) 18.8 SECONDS (9.0-12.0)
[2017-04-08 13:59] LABS: BUN/CREATININE RATIO 19.2 (10-20); CALCIUM 8.6 mg/dl (8.5-10.1); CREATININE 1.9 mg/dl (0.60-1.40); POTASSIUM 4.6 mmol/L (3.5-5.1)
--- NOTE | 2017-04-08 14:02 | DIAGNOSTIC IMAGING REPORT ---
CHEST ONE VIEW PORTABLE HISTORY: cough COMPARISON: Chest 02/07/2017. FINDINGS: No pneumothorax. Left-sided pacemaker/defibrillator is again noted. The heart remains mildly enlarged. No new focal lung consolidations to suggest pneumonia. No evidence for pulmonary edema. Mild bibasilar interstitial thickening is likely chronic. No pleural effusions. IMPRESSION: No significant change compared to the prior study. No acute process. Stable cardiomegaly. Electronically signed by: Robert Gamez M.D. 04/08/2017 2:01 PM Dictated Date/Time: 04/08/2017 2:00 PM
[2017-04-08 14:05] LABS: ALB/GLOB RATIO 0.8 (0.9-2)
--- NOTE | 2017-04-08 14:53 | DIAGNOSTIC IMAGING REPORT ---
CT HEAD WITHOUT CONTRAST (CT) CLINICAL HISTORY: Headache. Dizziness. COMPARISON STUDY: 09/01/2016 TECHNIQUE: Axial CT of the brain is performed from the vertex to the skull base. IV contrast was not administered for this examination. CT DOSE: 537.48 mGy.cm FINDINGS: No intra or extra-axial mass lesions are visualized. There is no CT evidence of acute cortical infarction. There is no evidence of midline shift. There is no acute hemorrhage. No calvarial fractures are visualized. There are minimal white matter hypodensities likely on a small vessel basis. There is no evidence of pathologic ventricular dilatation. There is no evidence of acute sinusitis. Vertebral calcifications are again evident. IMPRESSION: No acute intracranial findings Electronically signed by: Anton Collazo M.D. 04/08/2017 2:51 PM Dictated Date/Time: 04/08/2017 2:50 PM
[2017-04-08] MEDS ORDERED: MECLIZINE HCL 25 MG TAB PO STA (15:12)
[2017-04-08 15:18] LABS: URINE APPEARANCE CLEAR (CLEAR); URINE BILIRUBIN NEG (NEG); URINE COLOR YELLOW; URINE NITRITE NEG (NEG); URINE SPECIFIC GRAVITY 1.017 (1.000-1.030); UROBILINOGEN NEG (NEG); ZZUR CULT IF INDIC CLEAN CATCH NO
[2017-04-08 15:25] LABS: MANUAL MICROSCOPIC REQUIRED? NO; REVIEW REQ? NO
--- NOTE | 2017-04-08 16:36 | DIAGNOSTIC IMAGING REPORT ---
CT brain angiogram HEAD ANGIO WITH CONTRAST CLINICAL HISTORY: Mental status change TECHNIQUE: Transaxial acquisition with multi axial reformatted images COMPARISON STUDY: None FINDINGS: Negative study. All major structures of the anterior middle and posterior cerebral cerebral circulation are intact IMPRESSION: No acute process. Electronically signed by: Harjeet Tellez M.D. 04/08/2017 4:34 PM Dictated Date/Time: 04/08/2017 4:32 PM
--- NOTE | 2017-04-08 16:42 | DIAGNOSTIC IMAGING REPORT ---
NECK CTA HISTORY: Mental status change TECHNIQUE: Multiaxial CT images of the neck were performed following the intravenous administration of contrast to evaluate the major cervical vessels. Maximum intensity projection images were also obtained. All measurements were calculated based on NASCET criteria. COMPARISON STUDY: None. FINDINGS: The aortic arch and proximal great vessels are widely patent. 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 Partial reconstitution at its distal aspect. Moderate atherosclerotic change] vertebral with no significant stenotic process. 30-40% narrowing of the right carotid bifurcation proximal right internal carotid artery. 5060/% narrowing left internal carotid artery and left bifurcation. Mild scattered plaque formation bilaterally throughout the remaining courses of the right system. IMPRESSION: 1. 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 Partial reconstitution distally. 2. 30-40% narrowing right carotid bifurcation and proximal right internal carotid artery. 3. 50-60% narrowing left internal carotid artery and left carotid bifurcation. Electronically signed by: Harjeet Tellez M.D. 04/08/2017 4:41 PM Dictated Date/Time: 04/08/2017 4:36 PM
[2017-04-08] MEDS ORDERED: ACETAMINOPHEN 325 MG TAB PO STA (17:10)
[2017-04-08] MEDS ORDERED: WARFARIN SOD 2.5 MG TAB PO STA (17:25)
[2017-04-08] MEDS ORDERED: ENOXAPARIN 100 MG/1ML SYR SQ ONE (17:30)
[2017-04-08 17:52] VITALS: BP 120/82; PULSE 71; O2SAT 95
[2017-04-30] MEDS ORDERED: NTRGSL/4 UT (03:30)
[2017-04-30] MEDS ORDERED: ISOS60TA25 PO (03:30)
[2017-04-30] MEDS ORDERED: SIMV40TA4 PO (08:27)
[2017-04-30] MEDS ORDERED: NVLGI/PEN SC (15:57)
[2017-04-30] MEDS ORDERED: INSDGIPEN SC (15:57)
[2017-04-30] MEDS ORDERED: IPRA0.06 NAE (21:13)
[2017-06-17] MEDS ORDERED: TRAM-10 PO (13:35)
== END 2017-04-08 17:53 | disposition home or self-care (01) ==
LOC: C.EDB 12:23 → C.EDA 17:53
DX: R51 Headache (principal); R42 Dizziness and giddiness; I50.20 Unspecified systolic (congestive) heart failure; S37.009A Unspecified injury of unspecified kidney, initial encounter; M19.90 Unspecified osteoarthritis, unspecified site; E11.9 Type 2 diabetes mellitus without complications; K21.9 Gastro-esophageal reflux disease without esophagitis; I51.9 Heart disease, unspecified; I10 Essential (primary) hypertension; E87.6 Hypokalemia; E07.9 Disorder of thyroid, unspecified; Z83.3 Family history of diabetes mellitus; Z82.49 Family history of ischemic heart disease and other diseases of the circulatory system; Z79.4 Long term (current) use of insulin; Z79.01 Long term (current) use of anticoagulants; Z51.81 Encounter for therapeutic drug level monitoring

== ENCOUNTER 2017-04-30 21:26 | Observation (INO) | payer OTHER ==
[~2017-04-30] VITALS: Ht 172.7 cm; Wt 98.7 kg
[~2017-04-30 21:26] MED LIST changes: +INSDGIPEN SC; +IPRA0.06 NAE; +ISOS60TA25 PO; +NTRGSL/4 UT; +NVLGI/PEN SC; +SIMV40TA4 PO
[2017-04-30] MEDS ORDERED: ASPIRIN 324 MG CHEW PO STA (21:47)
[2017-04-30] MEDS: NITROGLYCERIN 0.4 MG SL PER TAB CHARGE SL PRN ×2 (21:52→22:01)
--- NOTE | 2017-04-30 21:57 | EMERGENCY ROOM VISIT NOTE ---
History Report prepared by Stephanie: Yu Retana Under the Supervision of: Dr. Saurabh Tolentino M.D. First contact with patient: 21:39 Chief Complaint: CARDIAC ASSESSMENT Stated Complaint: PAIN IN CHEST, HARD TO BREATH, PAIN ON TOP OF HEAD History of Present Illness The patient is a 76 year old male who presents to the Emergency Room with complaints of worsening chest pain beginning several days ago. The pain is rated at a 6/10. He has also been having shortness of breath and dizziness. Per his family, he reports having pain on the top of his head and left arm. The patient thinks that it is possible that one of his new medications is causing this pain, so he stopped taking the new medication for a few days but is still having the pain. The patient has had a heart attack before. He also has stents in his heart and a pacemaker. Source of History: patient, family Onset: several days ago Position: chest Symptom Intensity: rated at a 6/10 Timing: worsening Associated Symptoms: + SOB Note: other symptom: dizziness, left arm pain, pain on the top of his head Review of Systems See HPI for pertinent positives & negatives. A total of 10 systems reviewed and were otherwise negative. 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 (14) Thyroid dysfunction (15) Two stents Family History Diabetes mellitus FH: cancer Heart disease Hypertension Kidney disease Kidney stones Social History Smoking Status: Never Smoker Alcohol Use: none Drug Use: none Marital Status: Housing Status: lives with family Occupation Status: retired Current/Historical Medications Scheduled Allopurinol (Zyloprim), 100 MG PO BID Amiodarone HCl (Amiodarone HCl), 200 MG PO DAILY Bumetanide (Bumex), 2 MG PO BID Calcitriol (Calcitriol), 0.25 MCG PO MWF Carvedilol (Coreg), 1 TAB PO BID Fluticasone Propionate (Nasal) (Flonase Allergy Relief), 1 SPRAYS ALEX DAILY Gabapentin (Neurontin), 100 MG PO TID Insulin Aspart (Novolog Flexpen), 8 UNITS SC WM Insulin Glargine (Lantus Solostar), 15 UNITS SC HS Ipratropium Dandridge (Nasal) (Ipratropium [place]andridge), 2 SPRAYS ALEX BID Isosorbide Mononitrate Ext Rel (Imdur Ext Rel), 60 MG PO QAM Levothyroxine Sodium (Levothyroxine Sodium), 75 MCG PO DAILY Potassium Ext Rel (Klor-Con), 40 MEQ PO BID Simvastatin (Zocor), 40 MG PO QPM Trazodone Hcl (Trazodone), 75 MG PO HS Warfarin Sodium (Coumadin), 2.5-5 MG PO UD Scheduled PRN Nitroglycerin (Nitrostat), 0.4 MG UT UD PRN for Chest Pain Allergies Coded Allergies: No Known Allergies (Verified , 04/30/17) Physical Exam Vital Signs Date Time Temp Pulse Resp B/P (MAP) Pulse Ox O2 Delivery O2 Flow Rate FiO2 04/30/17 22:07 70 20 113/59 92 Room Air 04/30/17 21:59 70 27 115/67 92 Room Air 04/30/17 21:57 69 04/30/17 21:56 Room Air 04/30/17 21:54 70 23 112/60 95 Room Air 04/30/17 21:46 Room Air 04/30/17 21:31 36.7 77 20 118/73 92 Room Air Physical Exam GENERAL: Patient is well appearing and in minimal distress. HEENT: No acute trauma, normocephalic atraumatic, mucous membranes moist, no nasal congestion, no scleral icterus. NECK: No stridor, no adenopathy, no meningismus, trachea is midline. LUNGS: No dyspnea. Clear to auscultation and equal bilaterally. No wheeze, no rhonchi. HEART: Regular rate and rhythm. No murmurs, rubs, gallops appreciated. ABDOMEN: Soft, nontender, bowel sounds positive, no masses appreciated, no peritonitis. BACK: No midline tenderness, no CVA tenderness EXTREMITIES: Normal motion all extremities, no cyanosis, bilateral lower leg 1+ edema. NEUROLOGIC: Alert and oriented, no acute motor or sensory deficits, no focal weakness, cranial nerves grossly intact. SKIN: No rash, no jaundice, no diaphoresis. Medical Decision & Procedures ER Provider Diagnostic Interpretation: X ray results are stated below per my interpretation and the radiologist's interpretation. CHEST ONE VIEW PORTABLE CLINICAL HISTORY: Atypical chest pain COMPARISON STUDY: 04/08/2017 FINDINGS: The heart is enlarged. There is a left subclavian pacer/defibrillator present. There is mild pulmonary vascular congestion. There is no lobar consolidation. There are no significant pleural effusions.[ IMPRESSION: Cardiomegaly and radiographic evidence of mild pulmonary vascular congestion. Electronically signed by: Anton Collazo M.D. 04/30/2017 10:09 PM Dictated Date/Time: 04/30/2017 10:08 PM Laboratory Results 04/30/17 21:40 Red Blood Count 5.17, Mean Corpuscular Volume 93.4, Mean Corpuscular Hemoglobin 29.6, Mean Corpuscular Hemoglobin Concent 31.7, Mean Platelet Volume 9.4, Neutrophils (%) (Auto) 62.4, Lymphocytes (%) (Auto) 18.6, Monocytes (%) (Auto) 12.2, Eosinophils (%) (Auto) 6.4, Basophils (%) (Auto) 0.2, Neutrophils # (Auto ) 3.22, Lymphocytes # (Auto) 0.96, Monocytes # (Auto) 0.63, Eosinophils # (Auto ) 0.33, Basophils # (Auto) 0.01 04/30/17 21:40 Test 04/30/17 21:40 White Blood Count 5.16 K/uL (4.8-10.8) Red Blood Count 5.17 M/uL (4.7-6.1) Hemoglobin 15.3 g/dL (14.0-18.0) Hematocrit 48.3 % (42-52) Mean Corpuscular Volume 93.4 fL (80-100) Mean Corpuscular Hemoglobin 29.6 pg (25-34) Mean Corpuscular Hemoglobin Concent 31.7 g/dl (32-36) Platelet Count 122 K/uL (130-400) Mean Platelet Volume 9.4 fL (7.4-10.4) Neutrophils (%) (Auto) 62.4 % Lymphocytes (%) (Auto) 18.6 % Monocytes (%) (Auto) 12.2 % Eosinophils (%) (Auto) 6.4 % Basophils (%) (Auto) 0.2 % Neutrophils # (Auto) 3.22 K/uL (1.4-6.5) Lymphocytes # (Auto) 0.96 K/uL (1.2-3.4) Monocytes # (Auto) 0.63 K/uL (0.11-0.59) Eosinophils # (Auto) 0.33 K/uL (0-0.5) Basophils # (Auto) 0.01 K/uL (0-0.2) RDW Standard Deviation 56.1 fL (36.4-46.3) RDW Coefficient of Variation 16.3 % (11.5-14.5) Immature Granulocyte % (Auto) 0.2 % Immature Granulocyte # (Auto) 0.01 K/uL (0.00-0.02) Prothrombin Time 49.0 SECONDS (9.0-12.0) Prothromb Time International Ratio 4.3 (0.9-1.1) Activated Partial Thromboplast Time 43.7 SECONDS (21.0-31.0) Partial Thromboplastin Ratio 1.7 Anion Gap 4.0 mmol/L (3-11) Est Creatinine Clear Calc Drug Dose 35.1 ml/min Estimated GFR () 34.9 Estimated GFR (Non- 30.1 BUN/Creatinine Ratio 20.9 (10-20) Calcium Level 8.8 mg/dl (8.5-10.1) Total Creatine Kinase 315 U/L (39-308) Creatine Kinase MB 4.5 ng/ml (0.5-3.6) Creatine Kinase MB Ratio 1.4 (0-3.0) Pro-B-Type Natriuretic Peptide 2581 pg/ml (0-900) Laboratory results as reviewed by me. Medications Administered Medications (Trade) Dose Ordered Sig/Rajesh Route Start Time Stop Time Status Last Admin Dose Admin Aspirin (Aspirin Chew) 324 mg NOW STAT PO 04/30/17 21:47 04/30/17 21:48 DC 04/30/17 21:52 324 MG Nitroglycerin (Nitrostat Tab) 0.4 mg Q5M PRN SL 04/30/17 22:00 05/01/17 01:27 DC 04/30/17 22:01 0.4 MG ECG Indication: chest pain Rate (beats per minute): 87 Rhythm: other (ventricular paced) Findings: no ectopy, other (similar to previous ECG) ED Course 2139: The patient was evaluated in room C6. A complete history and physical exam was performed. 2146: Ordered Aspirin 324 mg PO. 2199: Ordered Nitroglycerin 0.4 mg SL. 225: The patient's pain has gone away but due to translation issues we are waiting for his daughter to return. 2300: Discussed the patient's case with Dr. Washington. The patient will be evaluated for further treatment and disposition. 2308: The patient states that he is not in pain. 2349: The patient has a positive Troponin test. 0000: Upon reevaluation, the patient is resting. Discussed results and treatment plan with the patient. He verbalized understanding and agreement with the treatment plan. The patient will be evaluated for further management. Medical Decision Medication Reconciliation: I attest that I have personally reviewed the patient 's current medication list. Blood pressure screening: Patient was found to have an elevated blood pressure and will be monitored by a hospitalist. 76 yr old male arrives with complaint of increasing intermittent chest pain over last few days. Now radiating to left neck and shoulder. Resolved with nitro. EKG with v paced rhythm. Trop at his baseline. Cr mildly bumped. Otherwise stable. He has extensive cardiac history and I do not feel that cardiac rule out in ED is reasonable. INR therapeutic thus I do not feel this is PE. No evidence of dissection/rupture at this time, especially given resolution of pain. Consults Time Called: [phone] Consulting Physician: Dr. Washington Returned Call: [phone] Discussed the patient's case. The patient will be evaluated for further treatment and disposition. Impression Primary Impression: Left sided chest pain Scribe Attestation The scribe's documentation has been prepared under my direction and personally reviewed by me in its entirety. I confirm that the note above accurately reflects all work, treatment, procedures, and medical decision making performed by me. Departure Information Dispostion Being Evaluated By Hospitalist Referrals No Doctor, Assigned (PCP) Patient Instructions [facility]
--- NOTE | 2017-04-30 22:10 | DIAGNOSTIC IMAGING REPORT ---
CHEST ONE VIEW PORTABLE CLINICAL HISTORY: Atypical chest pain COMPARISON STUDY: 04/08/2017 FINDINGS: The heart is enlarged. There is a left subclavian pacer/defibrillator present. There is mild pulmonary vascular congestion. There is no lobar consolidation. There are no significant pleural effusions.[ IMPRESSION: Cardiomegaly and radiographic evidence of mild pulmonary vascular congestion. Electronically signed by: Anton Collazo M.D. 04/30/2017 10:09 PM Dictated Date/Time: 04/30/2017 10:08 PM
[2017-04-30 22:12] LABS: BASO % 0.2 %; BASO ABS # 0.01 K/uL (0-0.2); COMPLETE YES; EOS % 6.4 %; HEMATOCRIT 48.3 % (42-52); IG% 0.2 %; LYMPH % 18.6 %; LYMPH ABS # 0.96 K/uL (1.2-3.4); MEAN CELL VOLUME 93.4 fL (80-100); MEAN CORPUSCULAR HEMOGLOBIN 29.6 pg (25-34); MEAN CORPUSCULAR HGB CONC 31.7 g/dl (32-36); MEAN PLATELET VOLUME 9.4 fL (7.4-10.4); MONO % 12.2 %; NEUT % 62.4 %; PLATELET COUNT 122 K/uL (130-400); RED BLOOD COUNT 5.17 M/uL (4.7-6.1); WHITE BLOOD COUNT 5.16 K/uL (4.8-10.8)
[2017-04-30 22:24] LABS: BUN/CREATININE RATIO 20.9 (10-20); CALCIUM 8.8 mg/dl (8.5-10.1); CREATININE 2.1 mg/dl (0.60-1.40); POTASSIUM 4.1 mmol/L (3.5-5.1)
[2017-04-30 22:25] LABS: PARTIAL THROMBOPLASTIN RATIO 1.7
[2017-04-30 22:27] LABS: INR 4.3 (0.9-1.1)
[2017-04-30] MEDS ORDERED: TRAZ50TA35 PO (22:28)
[2017-04-30] MEDS ORDERED: GABA-112 PO (22:28)
[2017-04-30] MEDS ORDERED: WARF5TAB90 PO (22:28)
[2017-04-30 22:37] LABS: CKMB/CK RATIO 1.4 (0-3.0)
[2017-04-30] MEDS ORDERED: LEVO75TA5 PO (23:37)
[2017-05-01] VITALS (9 sets, daily range): BP systolic 100–142; BP diastolic 64–86; PULSE 72–81; TEMP 36.3–36.8; O2SAT 91–96; Ht 172.7 cm; Wt 98.7 kg
[2017-05-01] MEDS ORDERED: ONDANSETRON INJ 2 MG/ML 2 ML VIAL IV PRN
[2017-05-01] MEDS ORDERED: ALUMINUM/MAGNESIUM/SIMETH (MAALOX MAX) 30 ML UDC PO PRN
[2017-05-01] MEDS ORDERED: ACETAMINOPHEN 325 MG TAB PO PRN
[2017-05-01] MEDS ORDERED: MAGNESIUM HYDROXIDE SUSP 30 ML UDC PO PRN
[2017-05-01] MEDS ORDERED: MoRPHine SULFATE 2 MG/ML CARP IV PRN
[2017-05-01] MEDS ORDERED: POLYETHYLENE (MIRALAX) 17 GM PACK PO PRN
--- NOTE | 2017-05-01 00:01 | History and Physical ---
History & Physical Date & Time of Service: Apr 30, 2017 at 23:55 Chief Complaint: Pain In Chest, Hard To Breath, Pain On Top Of Head Primary Care Physician: Noel Reid M.D. History of Present Illness Source: patient 76 y/o M Hx CAD, CHF, DM 2, HTN, VT/VF, BiV pacer, CKD 3 presenting with CP accompanied by lightheadedness, SOB and scalp pain. The pain is central and radiating into his L arm. An initial troponin is elevated however this appears to be chronic. An EKG is nondiagnostic due to ventricular pacing. He denies N/ V or diaphoresis. The pt is Bhut[place] speaking - his daughter is present for translation. 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 Smoking Status: Never Smoker Drug Use: none Marital Status: Housing status: lives with family Occupational Status: retired Immunizations History of Influenza Vaccine: No Influenza Vaccine Date: Jul 15, 2010 History of Tetanus Vaccine?: Yes Tetanus Immunization Date: Jul 15, 2010 History of Pneumococcal: Yes Pneumococcal Date: March 03, 2009 History of Hepatitis B Vaccine: No Multi-Drug Resistant Organisms History of MDRO: No Allergies Coded Allergies: No Known Allergies (Verified , 04/30/17) Home Medications Scheduled Allopurinol (Zyloprim), 100 MG PO BID Amiodarone HCl (Amiodarone HCl), 200 MG PO DAILY Bumetanide (Bumex), 2 MG PO BID Calcitriol (Calcitriol), 0.25 MCG PO MWF Carvedilol (Coreg), 1 TAB PO BID Fluticasone Propionate (Nasal) (Flonase Allergy Relief), 1 SPRAYS ALEX DAILY Gabapentin (Neurontin), 100 MG PO TID Insulin Aspart (Novolog Flexpen), 8 UNITS SC WM Insulin Glargine (Lantus Solostar), 15 UNITS SC HS Ipratropium Kirksey (Nasal) (Ipratropium Kirksey), 2 SPRAYS ALEX BID Isosorbide Mononitrate Ext Rel (Imdur Ext Rel), 60 MG PO QAM Levothyroxine Sodium (Levothyroxine Sodium), 75 MCG PO DAILY Potassium Ext Rel (Klor-Con), 40 MEQ PO BID Simvastatin (Zocor), 40 MG PO QPM Trazodone Hcl (Trazodone), 75 MG PO HS Warfarin Sodium (Coumadin), 2.5-5 MG PO UD Scheduled PRN Nitroglycerin (Nitrostat), 0.4 MG UT UD PRN for Chest Pain Review of Systems Constitutional: No fever, No chills, No sweats Eyes: No worsening of vision ENT: No hearing loss Respiratory: No cough, No sputum, No wheezing Cardiovascular: + chest pain, No orthopnea, No PND Abdomen: No pain, No nausea, No vomiting Musculoskeletal: No joint pain Genitourinary - Male: No hematuria Neurologic: + problem reported (Headache / scalp pain), No memory loss, No paralysis, No weakness Psychiatric: No depression symptoms Endocrine: No fatigue Hematologic / Lymphatic: No abnormal bleeding/bruising Integumentary: No rash Allergic / Immunologic: No environmental allergies Physical Exam Vital Signs Date Time Temp Pulse Resp B/P (MAP) Pulse Ox O2 Delivery O2 Flow Rate FiO2 04/30/17 22:07 70 20 113/59 92 Room Air 04/30/17 21:59 70 27 115/67 92 Room Air 04/30/17 21:57 69 04/30/17 21:56 Room Air 04/30/17 21:54 70 23 112/60 95 Room Air 04/30/17 21:46 Room Air 04/30/17 21:31 36.7 77 20 118/73 92 Room Air General Appearance: WD/WN, no apparent distress Head: normocephalic Eyes: normal inspection ENT: normal ENT inspection, pharynx normal Neck: supple, thyroid normal Respiratory/Chest: chest non-tender, lungs clear, + decreased breath sounds Cardiovascular: regular rate, rhythm, no edema, no gallop Abdomen/GI: normal bowel sounds, non tender, soft Back: normal inspection, no CVA tenderness Extremities/Musculoskelatal: normal inspection, no calf tenderness, normal capillary refill, no pedal edema, normal range of motion 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, no motor/sensory deficits, alert, normal mood/affect, normal reflexes, oriented x 3 Skin: normal color, warm/dry, no rash Diagnostics Laboratory Results Results Past 24 Hours Test 04/30/17 21:40 Range/Units White Blood Count 5.16 4.8-10.8 K/uL Red Blood Count 5.17 4.7-6.1 M/uL Hemoglobin 15.3 14.0-18.0 g/dL Hematocrit 48.3 42-52 % Mean Corpuscular Volume 93.4 80-100 fL Mean Corpuscular Hemoglobin 29.6 25-34 pg Mean Corpuscular Hemoglobin Concent 31.7 32-36 g/dl Platelet Count 122 130-400 K/uL Mean Platelet Volume 9.4 7.4-10.4 fL Neutrophils (%) (Auto) 62.4 % Lymphocytes (%) (Auto) 18.6 % Monocytes (%) (Auto) 12.2 % Eosinophils (%) (Auto) 6.4 % Basophils (%) (Auto) 0.2 % Neutrophils # (Auto) 3.22 1.4-6.5 K/uL Lymphocytes # (Auto) 0.96 1.2-3.4 K/uL Monocytes # (Auto) 0.63 0.11-0.59 K/uL Eosinophils # (Auto) 0.33 0-0.5 K/uL Basophils # (Auto) 0.01 0-0.2 K/uL RDW Standard Deviation 56.1 36.4-46.3 fL RDW Coefficient of Variation 16.3 11.5-14.5 % Immature Granulocyte % (Auto) 0.2 % Immature Granulocyte # (Auto) 0.01 0.00-0.02 K/uL Prothrombin Time 49.0 9.0-12.0 SECONDS Prothromb Time International Ratio 4.3 0.9-1.1 Activated Partial Thromboplast Time 43.7 21.0-31.0 SECONDS Partial Thromboplastin Ratio 1.7 Sodium Level 139 136-145 mmol/L Potassium Level 4.1 3.5-5.1 mmol/L Chloride Level 102 98-107 mmol/L Carbon Dioxide Level 33 21-32 mmol/L Anion Gap 4.0 3-11 mmol/L Blood Urea Nitrogen 44 7-18 mg/dl Creatinine 2.10 0.60-1.40 mg/dl Est Creatinine Clear Calc Drug Dose 35.1 ml/min Estimated GFR () 34.9 Estimated GFR (Non- 30.1 BUN/Creatinine Ratio 20.9 10-20 Random Glucose 175 70-99 mg/dl Calcium Level 8.8 8.5-10.1 mg/dl Total Creatine Kinase 315 39-308 U/L Creatine Kinase MB 4.5 0.5-3.6 ng/ml Creatine Kinase MB Ratio 1.4 0-3.0 Troponin I 0.047 0-0.045 ng/ml Pro-B-Type Natriuretic Peptide 2581 0-900 pg/ml EKG Ventricular pacing Impression Assessment and Plan 76 y/o M Hx CAD, CHF, DM 2, HTN, VT/VF, BiV pacer, CKD 3 presenting with CP accompanied by lightheadedness, SOB and scalp pain. The pain is central and radiating into his L arm. An initial troponin is elevated however this appears to be chronic. An EKG is nondiagnostic due to ventricular pacing. He denies N/ V or diaphoresis. 1) CP - Pt is high risk however both EKG and slight troponin are nondiagnostic at present. He is fully anticoagulated with Coumadin. We will add ASA and place him on [address] of Zocor[address] Will cont Coreg. We will consider addition of Plavix if his troponin trends upward. We will consult his successfactors consultant due to his complex history and persistent symptoms 2) Headache/scalp pain - unclear etiology - we will treat symptomatically 3) CHF - clinically euvolemic - will cont Coreg, Bumex 4) DM - placed on SS w/Lantus 5) CKD 3 - creat at baseline 6) VF, VT - cont Amiodarone, Coreg Full code - Heparin prophylaxis Total time for this admit including review of labs, meds, EKG - discussion with pt and ER attending - 37 min Level of Care Telemetry Resuscitation Status FULL RESUSCITATION VTE Prophylaxis VTE Risk Assessment Done? Y/N: Yes Risk Level: Moderate Given or contraindicated: Warfarin (Coumadin)
[2017-05-01] MEDS ORDERED: IV FLUIDS COMPLETED PRN (00:45)
[2017-05-01] MEDS ORDERED: TRAZODONE HCL 50 MG TAB PO SCH ×2 (02:30→21:00)
[2017-05-01] MEDS ORDERED: GLUCOSE 10 TABS/TUBE PO PRN (03:00)
[2017-05-01] MEDS ORDERED: DEXTROSE 50% 50 ML SYR IV PRN (03:00)
[2017-05-01] MEDS ORDERED: GLUCOSE 40% GEL 15 GM TUBE PO PRN (03:00)
[2017-05-01] MEDS ORDERED: GLUCAGON FOR INJ 1 MG VIAL SQ PRN (03:00)
[2017-05-01] MEDS: NITROGLYCERIN 0.4 MG SL PER TAB CHARGE SL PRN ×3 (04:34→04:46)
[2017-05-01] MEDS ORDERED: LEVOTHYROXINE 75 MCG TAB PO SCH (06:00)
[2017-05-01] MEDS: INSULIN ASPART 100 UNITS/ML 3 ML PEN SC SCH ×2 (07:00→11:00)
[2017-05-01] MEDS ORDERED: BUMETANIDE 1 MG TAB PO SCH (09:00)
[2017-05-01] MEDS ORDERED: ISOSORBIDE MONONITRATE 60 MG TABCR PO SCH (09:00)
[2017-05-01] MEDS ORDERED: ALLOPURINOL 100 MG TAB PO SCH (09:00)
[2017-05-01] MEDS ORDERED: AMIODARONE 200 MG TAB PO SCH (09:00)
[2017-05-01] MEDS ORDERED: CARVEDILOL 6.25 MG TAB PO SCH (09:00)
[2017-05-01] MEDS ORDERED: IPRATROPIUM BROMIDE NASAL SPRAY 0.06% 15ML NAE SCH (09:00)
[2017-05-01] MEDS ORDERED: CALCITRIOL 0.25 MCG CAP PO SCH (09:00)
[2017-05-01] MEDS ORDERED: GABAPENTIN 100 MG CAP PO SCH (09:00)
[2017-05-01] MEDS ORDERED: POTASSIUM CHLORIDE 20 MEQ TABCR PO SCH (09:00)
[2017-05-01] MEDS ORDERED: MECLIZINE HCL 25 MG TAB PO PRN (12:45)
[2017-05-01] MEDS ORDERED: ANT25 PO (12:47)
--- NOTE | 2017-05-01 12:55 | Discharge Instructions ---
Discharge Instructions Date of Service May 01, 2017. Admission Reason for Admission: Chest Pain Discharge Discharge Diagnosis / Problem: Chest Pain Discharge Goals Goal(s): Decrease discomfort, Improve function, Increase independence Activity Recommendations Activity Limitations: resume your previous activity . Instructions / Follow-Up Instructions / Follow-Up Chest Pain with Left Sided Head Pain: - Your chest pain is unlikely to be cardiac in nature due to the reproducibility. - Review of imaging looking at the blood vessels in the neck, shows blockages that can cause lightheadedness and pain. - Continue your Gabapentin as prescribed by your family doctor and increase the dose as they instructed. Lightheadedness: - Would recommend using Meclizine up to three times a day only if needed for dizziness and a prescription will be provided Coumadin Level: - Your Coumadin/Warfarin level is too high at 4.3. - Please HOLD YOUR WARFARIN TODAY. Please have your level checked on May 02 and adjust this medication per the doctor who reads this Home Medications: - Please continue your home medications as previously prescribed. Please discuss with your doctor before stopping medications Current Hospital Diet Patient's current hospital diet: AHA Diet (Heart Healthy), Diabetes Type 2 Diet Discharge Diet Recommended Diet: AHA Diet (Heart Healthy), Diabetes Type 2 Diet Pending Studies Studies pending at discharge: no Medical Emergencies . Who to Call and When: Medical Emergencies: If at any time you feel your situation is an emergency, please call 911 immediately. . Non-Emergent Contact Non-Emergency issues call your: Primary Care Provider Call Non-Emergent contact if: you have a fever, your pain is concerning you, you have any medication questions . . "Provider Documentation" section prepared by Jennifer Malin. . VTE Core Measure Inpt VTE Proph given/why not?: Warfarin (Coumadin)
--- NOTE | 2017-05-01 13:36 | Cardiology Consultation ---
Cardiology Consultation Date of Consultation: May 01, 2017. Reason for Consultation: Chest pain Pt evaluation today including: conversation w/ patient, conversation w/ family , physical exam, lab review, review of studies, review of inpatient medication list History of Present Illness This is a very pleasant Bangladeshi-speaking gentleman who knows some Croatian but is a bit hard to talk to. He has a history of coronary artery disease which includes LAD stent placement, he also has hypertension, hypercholesterolemia, mild chronic renal disease and diabetes mellitus. He also has chronic atrial fibrillation and congestive heart failure. He had an ICD implanted on February 20, 2011 for primary prevention of sudden cardiac as well as bradycardia support. He did not have defibrillation threshold testing due to atrial fibrillation and holding anticoagulation at the time. He had been having a lot of difficulty lately with worsening congestive heart failure. His left ventricular ejection fraction was in the 20-25% range, and we upgraded his device to a biventricular ICD with implantation of a left ventricular lead and replacement of the device on 02/06/2017. Since then he apparently has been feeling better, he looks good and apparently has been quite active. He presents now with a number of symptoms including left chest discomfort, left- sided headache, intermittent dizziness but improvement in his exercise ability and his shortness of breath. His chest discomfort is not reproducibly exertional , last for a prolonged period of time (half an hour) and is not likely ischemic. Past Medical/Surgical History (1) Diabetes mellitus (2) Gastroesophageal reflux disease (3) Hernia of abdominal wall (4) Thyroid dysfunction (5) Nephrolithiasis (6) Arthritis Family History Diabetes mellitus FH: cancer Heart disease Hypertension Kidney disease Kidney stones Social History Smoking Status: Never Smoker History of Alcohol Use: No Review of Systems Constitutional: No fever, No weight loss, No weakness Respiratory: + dyspnea on exertion, No cough, No wheezing, No shortness of breath Cardiac: + see HPI, + chest pain, No orthopnea, No PND, No edema, No palpitations Abdomen: No pain, No nausea, No vomiting, No diarrhea, No GI bleeding Male : No urinary frequency, No nocturia more than once/night, No slowing stream, No sexual dysfunction Neurologic: No paralysis, No weakness, No numbness/tingling, No balance problems Heme: No abnormal bleeding/bruising, No clotting problems Endo: No fatigue Skin: No problem reported All Other Systems: Reviewed and Negative Allergies Coded Allergies: No Known Allergies (Verified , 04/30/17) Medications Current Inpatient Medications Medications (Trade) Dose Ordered Sig/Rajesh Route Start Time Stop Time Status Last Admin Dose Admin Acetaminophen (Tylenol Tab) 650 mg Q4H PRN PO 05/01/17 00:00 05/31/17 00:00 Al Hydrox/Mg Hydrox/Simethicone (Maalox Max Susp) 15 ml Q4H PRN PO 05/01/17 00:00 05/31/17 00:00 Magnesium Hydroxide (Milk Of Magnesia Susp) 30 ml Q12H PRN PO 05/01/17 00:00 05/31/17 00:00 Ondansetron HCl (Zofran Inj) 4 mg Q6H PRN IV 05/01/17 00:00 05/31/17 00:00 Nitroglycerin (Nitrostat Tab) 0.4 mg UD PRN SL 05/01/17 00:00 05/31/17 00:00 05/01/17 04:46 0.4 MG Morphine Sulfate (MoRPHine SULFATE INJ) 2 mg Q30M PRN IV 05/01/17 00:00 05/15/17 00:00 05/01/17 03:25 2 MG Polyethylene (Miralax Powder Packet) 17 gm DAILY PRN PO 05/01/17 00:00 05/31/17 00:00 Allopurinol (Zyloprim Tab) 100 mg BID PO 05/01/17 09:00 05/31/17 08:59 05/01/17 08:18 100 MG Amiodarone HCl (Cordarone Tab) 200 mg DAILY PO 05/01/17 09:00 05/31/17 08:59 05/01/17 08:18 200 MG Bumetanide (Bumex Tab) 2 mg BID17 PO 05/01/17 09:00 05/31/17 08:59 05/01/17 08:17 2 MG Calcitriol (Rocaltrol Cap) 0.25 mcg DAILY PO 05/01/17 09:00 05/31/17 08:59 05/01/17 08:18 0.25 MCG Carvedilol (Coreg Tab) 6.25 mg BID PO 05/01/17 09:00 05/31/17 08:59 05/01/17 08:18 6.25 MG Gabapentin (Neurontin Cap) 100 mg TID PO 05/01/17 09:00 05/31/17 08:59 05/01/17 08:17 100 MG Insulin Glargine (Lantus Solostar Pen) 15 units HS SC 05/01/17 21:00 05/31/17 20:59 Isosorbide Mononitrate (Imdur Ext Rel Tab) 60 mg QAM PO 05/01/17 09:00 05/31/17 08:59 05/01/17 08:18 60 MG Levothyroxine Sodium (Synthroid Tab) 75 mcg DAILYBB PO 05/01/17 06:00 05/31/17 05:59 05/01/17 06:26 75 MCG Potassium Chloride (Klor-Con Tab) 40 meq BID17 PO 05/01/17 09:00 05/31/17 08:59 05/01/17 08:17 40 MEQ Simvastatin (Zocor Tab) 40 mg QPM PO 05/01/17 21:00 05/31/17 20:59 Ipratropium [place] (Atrovent Nasal Mobile 0.06%) 2 sprays BID ALEX 05/01/17 09:00 05/31/17 08:59 05/01/17 08:18 2 SPRAYS Trazodone HCl (Desyrel Tab) 75 mg HS PO 05/01/17 02:30 05/31/17 02:29 Insulin Aspart (novoLOG ASPART) SLIDING SCALE G... ACHS SC 05/01/17 07:00 05/31/17 06:59 Miscellaneous (Iv Fluids Completed) 1 ea PRN PRN N/A 05/01/17 00:45 05/01/18 00:44 Glucose (Glucose 40% Gel) 15-30 GRAMS 15 GRAMS... UD PRN PO 05/01/17 03:00 05/31/17 02:59 Glucose (Glucose Chew Tab) 4-8 Tablets 4 Tabl... UD PRN PO 05/01/17 03:00 05/31/17 02:59 Dextrose (Dextrose 50% 50ML Syringe) 25-50ML OF 50% DW IV FOR... UD PRN IV 05/01/17 03:00 05/31/17 02:59 Glucagon (Glucagon Inj) 1 mg UD PRN SQ 05/01/17 03:00 05/31/17 02:59 Meclizine HCl (Antivert Tab) 25 mg TID PRN PO 05/01/17 12:45 05/31/17 12:44 Physical Exam Vital Signs Past 12 Hours Date Time Temp Pulse Resp B/P (MAP) Pulse Ox O2 Delivery O2 Flow Rate FiO2 05/01/17 12:00 Room Air 05/01/17 11:42 36.5 72 20 133/81 (98) 96 Room Air 05/01/17 08:00 Room Air 05/01/17 07:49 36.3 74 19 128/82 (97) 95 Room Air 05/01/17 04:45 100/64 (76) 05/01/17 04:40 109/66 (80) 05/01/17 04:32 124/74 (91) 05/01/17 04:00 91 Room Air 05/01/17 03:20 36.4 81 19 121/86 (98) 91 Room Air Constitutional: General Apperance: heathly-appearing Level of Distress: NAD Psychiatric: Mental Status: active & alert Head: normocephalic Eyes: EOM: EOMI ENMT: normal ENT inspection, hearing grossly normal Neck: supple, no masses Lungs: Respiratory effort: no dyspnea, good air movement Auscultation: breath sounds normal, no wheezing Cardiovascular: Heart Auscultation: RRR, no murmurs, no rubs, no gallops Peripheral Pulses: Bruits: none appreciated Abdomen: Bowel Sounds: normal Inspection & Palpation: soft, no tenderness, guarding & rebound, no masses Musculoskeletal: normal strength (5/5 throughout) Extremities: no edema Neurologic: Cranial Nerves: grossly intact Sensation: grossly intact Data Laboratory Results: Last 24 Hours Test 04/30/17 21:40 05/01/17 00:54 05/01/17 01:23 05/01/17 06:11 White Blood Count 5.16 K/uL Red Blood Count 5.17 M/uL Hemoglobin 15.3 g/dL Hematocrit 48.3 % Mean Corpuscular Volume 93.4 fL Mean Corpuscular Hemoglobin 29.6 pg Mean Corpuscular Hemoglobin Concent 31.7 g/dl Platelet Count 122 K/uL Mean Platelet Volume 9.4 fL Neutrophils (%) (Auto) 62.4 % Lymphocytes (%) (Auto) 18.6 % Monocytes (%) (Auto) 12.2 % Eosinophils (%) (Auto) 6.4 % Basophils (%) (Auto) 0.2 % Neutrophils # (Auto) 3.22 K/uL Lymphocytes # (Auto) 0.96 K/uL Monocytes # (Auto) 0.63 K/uL Eosinophils # (Auto) 0.33 K/uL Basophils # (Auto) 0.01 K/uL RDW Standard Deviation 56.1 fL RDW Coefficient of Variation 16.3 % Immature Granulocyte % (Auto) 0.2 % Immature Granulocyte # (Auto) 0.01 K/uL Prothrombin Time 49.0 SECONDS Prothromb Time International Ratio 4.3 Activated Partial Thromboplast Time 43.7 SECONDS Partial Thromboplastin Ratio 1.7 Sodium Level 139 mmol/L Potassium Level 4.1 mmol/L Chloride Level 102 mmol/L Carbon Dioxide Level 33 mmol/L Anion Gap 4.0 mmol/L Blood Urea Nitrogen 44 mg/dl Creatinine 2.10 mg/dl Est Creatinine Clear Calc Drug Dose 35.1 ml/min Estimated GFR () 34.9 Estimated GFR (Non- 30.1 BUN/Creatinine Ratio 20.9 Random Glucose 175 mg/dl Calcium Level 8.8 mg/dl Total Creatine Kinase 315 U/L Creatine Kinase MB 4.5 ng/ml Creatine Kinase MB Ratio 1.4 Troponin I 0.047 ng/ml 0.041 ng/ml Pro-B-Type Natriuretic Peptide 2581 pg/ml Bedside Glucose 245 mg/dl 114 mg/dl Test 05/01/17 07:58 05/01/17 11:53 Troponin I 0.053 ng/ml Erythrocyte Sedimentation Rate 28 mm/hr C-Reactive Protein < 0.29 mg/dl Imaging: Possible mild CHF EKG: Appropriate biventricular pacing Telemetry reviewed: Predominantly ventricular pacing appropriately Assessment & Plan #1. Biventricular ICD: Pacing virtually all of the time in the ventricle appropriately. This was upgraded in 01/2017 and he has been feeling better since. #2. Chronic Atrial fibrillation: I can't tell for sure how much time he spends in atrial fibrillation since there is no atrial lead, however is likely he is in atrial fibrillation chronically. The heart rate overall is well controlled and he is paced appropriately. #3. Cardiomyopathy: An echocardiogram was done 08/28/2014, showed severe left ventricular dysfunction with ejection fraction of 20-25%, which is consistent with his ejection fraction in the fall of 2014 as well as August 2016. His heart failure symptoms had been worsening gradually, now with biventricular pacing his symptoms seem improved, he seems to be at least class II currently. I would probably wait several more months after his upgrade before doing another echocardiogram to look for an improvement in left ventricular function. #4. Congestive heart failure: He has had an improvement in his heart failure class following biventricular pacing, I would classify him as NYHA class II. He has no clear evidence of heart failure. #5. Coronary artery disease: His chest pain is atypical and I don't think represents anginal symptoms. His enzymes are not elevated much, not enouph to suggest an acute ischemic event. I would not persue further evaluation of it at this time. Thank You
--- NOTE | 2017-05-01 15:11 | Discharge Summary ---
Discharge Summary Date of Service May 01, 2017. (Jennifre Malin PA-C) Discharge Summary Admission Date: Apr 30, 2017 at 23:52 Discharge Date: May 01, 2017 Discharge Disposition: Home Principal Diagnosis: Atypical Chest Pain with L Sided Head Pain Problems/Secondary Diagnoses: 1. CAD S/P MT and LAD Stent x 2 with BiV Pacer - H/O VT/VF 2. Chronic Atrial Fibrillation 3. Chronic Systolic Congestive Heart Failure - EF 20-25% 4. CKD Stage III 5. T2DM 6. Hypothyroidism 7. GERD Immunizations: Have You Had Influenza Vaccine: No Influenza Vaccine Date: Jul 15, 2010 History of Tetanus Vaccine?: Yes Tetanus Immunization Date: Jul 15, 2010 History of Pneumococcal: Yes Pneumococcal Date: March 03, 2009 History of Hepatitis B Vaccine: No Procedures: CHEST ONE VIEW PORTABLE FINDINGS: The heart is enlarged. There is a left subclavian pacer/defibrillator present. There is mild pulmonary vascular congestion. There is no lobar consolidation. There are no significant pleural effusions.[ IMPRESSION: Cardiomegaly and radiographic evidence of mild pulmonary vascular congestion. Consultations: 1. Cardiology (Jennifer Malin PA-C) Medication Reconciliation New Medications: Meclizine HCl (Meclizine HCl) 25 Mg Tab 25 MG PO TID PRN for Dizziness for 14 Days, #42 TAB Continued Medications: Allopurinol (Zyloprim) 100 Mg Tab 100 MG PO BID, TAB Amiodarone HCl (Amiodarone HCl) 200 Mg Tab 200 MG PO DAILY, #30 TAB 2 Refills Bumetanide (Bumex) 2 Mg Tab 2 MG PO BID, #60 TAB 5 Refills take 1 tablet every morning and 1 tablet every afternoon Calcitriol (Calcitriol) 0.25 Mcg Cap 0.25 MCG PO MWF, #30 CAP 2 Refills Carvedilol (Coreg) 6.25 Mg Tab 1 TAB PO BID for 90 Days, #180 TAB 3 Refills Fluticasone Propionate (Nasal) (Flonase Allergy Relief) 50 Mcg/Act Spr 1 SPRAYS ALEX DAILY Gabapentin (Neurontin) 100 Mg Cap 100 MG PO TID, CAP Insulin Aspart (Novolog Flexpen) 100 Units/Ml Inj 8 UNITS SC WM Insulin Glargine (Lantus Solostar) 100 Unit/Ml Inj 15 UNITS SC HS, PEN Ipratropium [place] (Nasal) (Ipratropium [place]) 0.06 % Spr 2 SPRAYS ALEX BID Isosorbide Mononitrate Ext Rel (Imdur Ext Rel) 60 Mg Ertab 60 MG PO QAM, 0 Refills Levothyroxine Sodium (Levothyroxine Sodium) 75 Mcg Tab 75 MCG PO DAILY, 3 Refills Nitroglycerin (Nitrostat) 0.4 Mg Tab 0.4 MG UT UD PRN for Chest Pain, 0 Refills Potassium Ext Rel (Klor-Con) 20 Meq Tabcr 40 MEQ PO BID, TAB Simvastatin (Zocor) 40 Mg Tab 40 MG PO QPM, TAB Trazodone Hcl (Trazodone) 50 Mg Tab 75 MG PO HS, TAB Warfarin Sodium (Coumadin) 5 Mg Tab 2.5-5 MG PO UD, TAB Discharge Exam Review of Systems: Constitutional: No fever, No chills Eyes: No worsening of vision, No eye pain, No diplopia ENT: + hearing loss (progressivew), No nasal symptoms, No sore throat, No trouble swallowing Respiratory: No cough, No shortness of breath Cardiovascular: No chest pain, No palpitations Abdomen: No pain, No nausea, No vomiting Genitourinary - Male: No dysuria Physical Exam: General Appearance: WD/WN, no apparent distress Eyes: sclerae normal Neck: supple, no JVD, trachea midline Respiratory/Chest: lungs clear, normal breath sounds, no respiratory distress, no accessory muscle use Cardiovascular: regular rate, rhythm, no gallop, no murmur Abdomen / GI: normal bowel sounds, non tender, soft Extremities: no calf tenderness, no pedal edema Neurologic/Psychiatric: alert, oriented x 3 Skin: normal color, warm/dry (Jennifer Malin, PAKenC) Hospital Course ADMISSION: 76 y/o M Hx CAD, CHF, DM 2, HTN, VT/VF, BiV pacer, CKD 3 presenting with CP accompanied by lightheadedness, SOB and scalp pain. The pain is central and radiating into his L arm. An initial troponin is elevated however this appears to be chronic. An EKG is nondiagnostic due to ventricular pacing. He denies N/V or diaphoresis. The pt is [place]ican speaking - his daughter is present for translation. HOSPITAL COURSE: Mr. Davidson was admitted for atypical and reproducible L-sided chest pain with associated L temporal head pain with radiation to the scalp. Upon further review of outpatient records these symptoms have been rather chronic. Given his significant cardiac history he was placed on tele and serial cardiac enzymes were obtained. He does have chronic elevated cardiac enzymes that did not suggest acute ischemic changes. He does report stopping amiodarone and trazadone due to lightheadedness. He has been taking gabapentin as prescribed by PCP as he presented with these complaints recently. Communication is limited due to language barrier and apple press operator and family members were utilized. In regards to the L temporal pain: he does not have an enlarged temporal artery, jaw claudication, visual disturbances. He does have an elevated ESR of 28. Do not suspect temporal arteritis. 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 Likely this is contributing to his symptoms superimposed on chronic musculoskeletal issues. Family at bedside reports this is the one year dorothea of the of his son and reporting increased stress and tension which may play a role in musculoskeletal complaints. During admission INR noted to be 4.3 and advised to hold warfarin today and have INR checked 7/8 and Rx provided. Advised patient to not stop medication without consulting his doctor. Given language barrier, I am concerned for non-compliance and he would be at increased risk for readmission. Total Time Spent: Greater than 30 minutes This includes examination of the patient, discharge planning, medication reconciliation, and communication with other providers. (Jennifer Malin, DEANDRA) Discharge Instructions Please refer to the electronic Patient Visit Report (Discharge Instructions) for additional information. (Jennifer Malin PA-C) Additional Copies To Noel Reid M.D. Reviewed: Pt Seen/Exam by Me (Marci Peters, ) History Pt's pain is lateral L chest wall under axillary area and moving into L neck and scalp. He notes that massage has helped in the past, but does not help as much now. No SOB. Tolerating PO without issue. Agree with HPI/ROS as noted. (Marci Peters DO) General Appearance: WD/WN, no apparent distress Neck: supple, tender lateral (on the L), other (TTP along L scalp into temporal region) Respiratory: normal breath sounds, no respiratory distress, other (TTP along L lateral upper thoracic wall near axilla) Cardiovascular: normal peripheral pulses, regular rate, rhythm Gastrointestinal: non tender, soft Extremities: non-tender, no pedal edema Neurologic/Psychiatric: alert, normal mood/affect Skin Characteristics: normal color, warm/dry (Marci Peters, DO) Assessment/Plan Agree with plan as outlined above CP seems related to stenosis and occlusion as noted above and is clearly reproducible Cardiology agrees with assessment States CP, neck and scalp pain are helped with massage, however not as much lately Did discuss that if massage is not longer as effective, acupuncture may be able to help with sx at some point INR elevated, holding coumadin tonight and recheck tomorrow (Marci Peters, DO)
[2017-05-01] MEDS ORDERED: INSULIN GLARGINE SOLOSTAR 100 UNITS/ML 3 ML PEN SC SCH (21:00)
[2017-05-01] MEDS ORDERED: SIMVASTATIN 40 MG TAB PO SCH (21:00)
[2017-06-17] MEDS ORDERED: TRAM-10 PO (13:35)
== END 2017-05-01 14:30 | disposition home or self-care (01) ==
LOC: C.EDB 21:27 → C.2T 23:52 → ENRESERV 05-01 00:03
PROVIDERS: ADMIT Internal Medicine; ATTEND Internal Medicine
DX: R07.89 Other chest pain (principal); I25.10 Atherosclerotic heart disease of native coronary artery without angina pectoris; I48.2 Chronic atrial fibrillation; I50.22 Chronic systolic (congestive) heart failure; E11.9 Type 2 diabetes mellitus without complications; E78.00 Pure hypercholesterolemia, unspecified; E03.9 Hypothyroidism, unspecified; I12.9 Hypertensive chronic kidney disease with stage 1 through stage 4 chronic kidney disease, or unspecified chronic kidney disease; N18.3 Chronic kidney disease, stage 3 (moderate); K21.9 Gastro-esophageal reflux disease without esophagitis; I25.2 Old myocardial infarction; Z98.61 Coronary angioplasty status; Z79.4 Long term (current) use of insulin; Z79.01 Long term (current) use of anticoagulants; Z87.442 Personal history of urinary calculi; Z95.0 Presence of cardiac pacemaker; Z83.3 Family history of diabetes mellitus; Z82.49 Family history of ischemic heart disease and other diseases of the circulatory system; Z84.1 Family history of disorders of kidney and ureter

== ENCOUNTER → 2017-05-07 | Outpatient (CLI) | payer OTHER ==
[~2017-05-07] MED LIST changes: +ANT25 PO; -CMD5 PO; +GABA-112 PO; +LEVO75TA5 PO; +SPIR25TA PO; -SPR25 PO; +TRAM-10 PO; +TRAZ50TA35 PO; +WARF5TAB90 PO
[2017-05-07 10:25] LABS: INR 1.5 (0.9-1.1); PROTHROMBIN TIME (PATIENT) 16.7 SECONDS (9.0-12.0)
--- NOTE | 2017-05-29 11:42 | CODING QUERY NO DIAGNOSIS ---
TREATMENT RENDERED WITHOUT A DIAGNOSIS To promote full compliance with coding requirements relating to patient care, physician participation is requested in all cases of certified procedural coder uncertainty. Please assist us with providing a diagnosis/symptom for the test(s) below: A diagnosis/symptom was not documented on your Order. A valid diagnosis/symptom is required to bill all insurances. Please remember that we are unable to code a diagnosis of rule out, probable, possible, questionable, or suspected. Tests that require a diagnosis: * PT/INR DIAGNOSIS: Provider Signature: Date: Thank you Marci Mccullough [employer] Once completed, please kindly fax back to [phone] For questions please call [phone]
== END | disposition home or self-care (01) ==
LOC: C.LAB1850 09:25
PROVIDERS: ATTEND Internal Medicine Nephrology
DX: Z51.81 Encounter for therapeutic drug level monitoring (principal); Z79.01 Long term (current) use of anticoagulants

== ENCOUNTER 2017-06-16 12:53 | Observation (INO) | payer OTHER ==
[~2017-06-16] VITALS: Ht 172.7 cm; Wt 93.5 kg
[~2017-06-16 12:53] MED LIST changes: -SPIR25TA PO; -TRAM-10 PO
[2017-06-16] MEDS ORDERED: SPIR25TA PO (13:21)
[2017-06-16] MEDS ORDERED: ASPIRIN 324 MG CHEW PO STA (13:26)
[2017-06-16 13:31] LABS: HEMATOCRIT 47.4 % (42-52); MEAN CELL VOLUME 95.8 fL (80-100); MEAN CORPUSCULAR HEMOGLOBIN 32.1 pg (25-34); MEAN CORPUSCULAR HGB CONC 33.5 g/dl (32-36); PLATELET COUNT 104 K/uL (130-400); RED BLOOD COUNT 4.95 M/uL (4.7-6.1); WHITE BLOOD COUNT 7.59 K/uL (4.8-10.8)
--- NOTE | 2017-06-16 13:37 | DIAGNOSTIC IMAGING REPORT ---
SINGLE VIEW CHEST CLINICAL HISTORY: Dyspnea. FINDINGS: An AP, portable, upright chest radiograph is compared to study dated 04/30/2017. The examination is degraded by portable technique and patient rotation. A 3-lead cardiac AICD is unchanged in position and largely obscures the left mid chest. The heart is enlarged and there is atherosclerotic calcification of the thoracic aorta. Pulmonary vascular congestion is observed and there is mild interstitial edema. There are small layering pleural effusions with bibasilar atelectasis. No pneumothorax is seen. The skeletal structures are osteopenic. The bony thorax is grossly intact. IMPRESSION: 1. Cardiomegaly and AICD. There is evidence of congestive failure and mild interstitial edema. 2. Layering pleural effusions with bibasilar atelectasis. Electronically signed by: Tramaine Orozco M.D. 06/16/2017 1:35 PM Dictated Date/Time: 06/16/2017 1:34 PM
[2017-06-16 13:44] LABS: INR 1.5 (0.9-1.1); PARTIAL THROMBOPLASTIN RATIO 1.1; PROTHROMBIN TIME (PATIENT) 16.1 SECONDS (9.0-12.0)
[2017-06-16 13:53] LABS: BUN/CREATININE RATIO 26.8 (10-20); CALCIUM 9.3 mg/dl (8.5-10.1); CREATININE 1.9 mg/dl (0.60-1.40); POTASSIUM 3.7 mmol/L (3.5-5.1)
[2017-06-16 13:57] LABS: ALB/GLOB RATIO 0.9 (0.9-2); CKMB/CK RATIO 1.4 (0-3.0)
[2017-06-16] MEDS ORDERED: ONDANSETRON INJ 2 MG/ML 2 ML VIAL IV PRN (16:00)
[2017-06-16] MEDS ORDERED: MAGNESIUM HYDROXIDE SUSP 30 ML UDC PO PRN (16:00)
[2017-06-16] MEDS ORDERED: POLYETHYLENE (MIRALAX) 17 GM PACK PO PRN ×2 (16:00→20:00)
[2017-06-16] MEDS ORDERED: NITROGLYCERIN 0.4 MG SL PER TAB CHARGE SL PRN (16:00)
[2017-06-16] MEDS ORDERED: ZOLPIDEM TARTRATE 5 MG TAB PO PRN (16:00)
[2017-06-16] MEDS ORDERED: WARFARIN SOD 5 MG TAB PO SCH (16:00)
[2017-06-16] MEDS ORDERED: MECLIZINE HCL 25 MG TAB PO PRN (16:00)
[2017-06-16] MEDS ORDERED: ALUMINUM/MAGNESIUM/SIMETH (MAALOX MAX) 30 ML UDC PO PRN (16:00)
--- NOTE | 2017-06-16 16:26 | History and Physical ---
History & Physical Date & Time of Service: Jun 16, 2017 at 16:06 Chief Complaint: Pacemaker Acting Up, Heartbeat In Urq,Mrq,Lrq Primary Care Physician: Scout Reid M.D. History of Present Illness Source: patient, family (daughter at bedside), clinic records, hospital records Patient is a pleasant 76 y/o male, with PMHx of CAD s/p LAD stent placement x2, chronic systolic CHF, biventricular ICD on 02/06/17, chronic a.fib, T2DM, dyslipidemia, CKD stage III, HTN, and hypothyroidism, who presented to the ED because of pulsations to left lateral chest starting around 12PM today. [employer] was present in room while interviewing patient- phrenic nerve was being stimulated. Lead stimulation changed and left lateral chest pulsations resolved. Additionally, patient was found to by hypoxic at 88% on RA. Per patient, his weight is up approximately 4 lbs today. He takes Bumex 2 mg BID, Aldactone 25 mg daily, and Lasix 40 mg PRN for weight gain 2-3 lbs. He did take a Lasix pill today. He denies any orthopnea, SOB at rest or with exertion, worsening edema. He notes he ate [place] on Thursday, which usually results in weight gain. Otherwise, he has been feeling well. He does admit to L lateral chest wall discomfort- this has been an ongoing issue. He was admitted in April 2017 for similar symptoms- discomfort was thought to be none cardiac related. He has been following with physical therapy since, which has seem to help his pain. Pain is reproducible on exam. Patient denies any fever, chills, sweats, lightheadedness, dizziness, vision changes, palpitations, edema, SOB, wheezing, cough, abdominal pain, nausea, vomiting, diarrhea, urinary symptoms, melena, numbness/tingling, weakness, muscle/joint pain, anxiety/depression, active bleeding, or new skin discoloration/changes. Past Medical/Surgical History Medical Problems: CAD s/p LAD stent placement x2 chronic systolic CHF biventricular ICD on 02/06/17 chronic a.fib T2DM dyslipidemia CKD stage III HTN hypothyroidism Surgical History: ICD placement stent placement hernia repair Family History Diabetes mellitus FH: cancer Heart disease Hypertension Kidney disease Kidney stones Social History Smoking Status: Never Smoker Drug Use: none Marital Status: Housing status: lives with family Occupational Status: retired Immunizations History of Influenza Vaccine: No Influenza Vaccine Date: Jul 15, 2010 History of Tetanus Vaccine?: Yes Tetanus Immunization Date: Jul 15, 2010 History of Pneumococcal: Yes Pneumococcal Date: March 03, 2009 History of Hepatitis B Vaccine: No Multi-Drug Resistant Organisms History of MDRO: No Allergies Coded Allergies: No Known Allergies (Verified , 06/16/17) Home Medications Scheduled Allopurinol (Zyloprim), 100 MG PO BID Amiodarone HCl (Amiodarone HCl), 200 MG PO DAILY Bumetanide (Bumex), 2 MG PO BID Calcitriol (Calcitriol), 0.25 MCG PO MWF Carvedilol (Coreg), 1 TAB PO BID Fluticasone Propionate (Nasal) (Flonase Allergy Relief), 1 SPRAYS ALEX DAILY Gabapentin (Neurontin), 100 MG PO TID Insulin Aspart (Novolog Flexpen), Unknown Dose SC BID Insulin Glargine (Lantus Solostar), Unknown Dose SC HS Ipratropium Dickens (Nasal) (Ipratropium Dickens), 2 SPRAYS ALEX BID Isosorbide Mononitrate Ext Rel (Imdur Ext Rel), 60 MG PO QAM Levothyroxine Sodium (Levothyroxine Sodium), 75 MCG PO DAILY Potassium Ext Rel (Klor-Con), 40 MEQ PO BID Simvastatin (Zocor), 40 MG PO QPM Spironolactone (Aldactone), 25 MG PO QAM Trazodone Hcl (Trazodone), 75 MG PO HS Warfarin Sodium (Coumadin), 2.5-5 MG PO UD Scheduled PRN Meclizine HCl (Meclizine HCl), 25 MG PO TID PRN for Dizziness Nitroglycerin (Nitrostat), 0.4 MG UT UD PRN for Chest Pain Physical Exam Vital Signs Date Time Temp Pulse Resp B/P (MAP) Pulse Ox O2 Delivery O2 Flow Rate FiO2 06/16/17 15:00 114/62 06/16/17 14:53 68 21 94 06/16/17 14:30 124/87 06/16/17 14:23 72 24 93 06/16/17 13:53 70 29 94 06/16/17 13:43 73 20 119/78 94 Room Air 06/16/17 13:41 119/78 8/22/17 13:40 70 06/16/17 13:40 68 06/16/17 13:08 92 Nasal Cannula 3.0 06/16/17 13:06 129/74 06/16/17 12:58 78 27 129/74 88 Room Air 06/16/17 12:56 36.4 86 18 129/79 97 Room Air General Appearance: no apparent distress, + obese, + pertinent finding (2L O2 NC) Head: normocephalic, atraumatic Eyes: normal inspection, PERRL ENT: hearing grossly normal Neck: supple Respiratory/Chest: lungs clear, no respiratory distress, no accessory muscle use, + pertinent finding (L lateral chest wall with mild ttp ) Cardiovascular: regular rate, rhythm Abdomen/GI: normal bowel sounds, non tender, + distended Back: normal inspection Extremities/Musculoskelatal: no calf tenderness, no pedal edema Neurologic/Psych: alert, normal mood/affect, oriented x 3 Skin: normal color, warm/dry, no rash Diagnostics Laboratory Results Results Past 24 Hours Test 06/16/17 13:17 06/16/17 13:23 Range/Units White Blood Count 7.59 4.8-10.8 K/uL Red Blood Count 4.95 4.7-6.1 M/uL Hemoglobin 15.9 14.0-18.0 g/dL Hematocrit 47.4 42-52 % Mean Corpuscular Volume 95.8 80-100 fL Mean Corpuscular Hemoglobin 32.1 25-34 pg Mean Corpuscular Hemoglobin Concent 33.5 32-36 g/dl RDW Standard Deviation 52.8 36.4-46.3 fL RDW Coefficient of Variation 15.1 11.5-14.5 % Platelet Count 104 130-400 K/uL Mean Platelet Volume 10.0 7.4-10.4 fL Prothrombin Time 16.1 9.0-12.0 SECONDS Prothromb Time International Ratio 1.5 0.9-1.1 Activated Partial Thromboplast Time 28.8 21.0-31.0 SECONDS Partial Thromboplastin Ratio 1.1 Sodium Level 139 136-145 mmol/L Potassium Level 3.7 3.5-5.1 mmol/L Chloride Level 102 98-107 mmol/L Carbon Dioxide Level 29 21-32 mmol/L Anion Gap 8.0 3-11 mmol/L Blood Urea Nitrogen 51 7-18 mg/dl Creatinine 1.90 0.60-1.40 mg/dl Est Creatinine Clear Calc Drug Dose 36.8 ml/min Estimated GFR () 39.4 Estimated GFR (Non- 34.0 BUN/Creatinine Ratio 26.8 10-20 Random Glucose 164 70-99 mg/dl Calcium Level 9.3 8.5-10.1 mg/dl Total Bilirubin 1.6 0.2-1 mg/dl Aspartate Amino Transf (AST/SGOT) 35 15-37 U/L Alanine Aminotransferase (ALT/SGPT) 28 12-78 U/L Alkaline Phosphatase 88 45-117 U/L Total Creatine Kinase 275 39-308 U/L Creatine Kinase MB 3.8 0.5-3.6 ng/ml Creatine Kinase MB Ratio 1.4 0-3.0 Troponin I 0.065 0-0.045 ng/ml Pro-B-Type Natriuretic Peptide 5434 0-900 pg/ml Total Protein 7.5 6.4-8.2 gm/dl Albumin 3.6 3.4-5.0 gm/dl Globulin 3.9 2.5-4.0 gm/dl Albumin/Globulin Ratio 0.9 0.9-2 Bedside Troponin I 0.040 0-0.045 ng/ml Diagnostic Radiology SINGLE VIEW CHEST CLINICAL HISTORY: Dyspnea. FINDINGS: An AP, portable, upright chest radiograph is compared to study dated 04/30/2017. The examination is degraded by portable technique and patient rotation. A 3-lead cardiac AICD is unchanged in position and largely obscures the left mid chest. The heart is enlarged and there is atherosclerotic calcification of the thoracic aorta. Pulmonary vascular congestion is observed and there is mild interstitial edema. There are small layering pleural effusions with bibasilar atelectasis. No pneumothorax is seen. The skeletal structures are osteopenic. The bony thorax is grossly intact. IMPRESSION: 1. Cardiomegaly and AICD. There is evidence of congestive failure and mild interstitial edema. 2. Layering pleural effusions with bibasilar atelectasis. Electronically signed by: Tramaine Orozco M.D. 06/16/2017 1:35 PM Dictated Date/Time: 06/16/2017 1:34 PM The status of this report is Signed. Draft = Not yet reviewed or approved by Radiologist. Signed = Reviewed and approved by Radiologist. EKG DAVID REGALADO ID:[id number] 16-JUN-2017 12:58:16 [facility] Ventricular-paced rhythm with occasional Premature ventricular complexes Abnormal ECG When compared with ECG of 01-MAY-2017 04:42, Premature ventricular complexes are now Present Vent. rate has increased BY 7 BPM Confirmed by SCOUT WILLIS ([id number]) on 06/16/2017 2:24:20 PM 25mm/s 10mm/mV 150Hz 8.0 SP2 12SL 241 CIPRIANO: 13 Referred by: Confirmed By: SCOUT WILLIS Vent. rate 79 BPM SC interval * ms QRS duration 206 ms QT/QTc 518/593 ms P-R-T axes * 222 14 1940 (76 yr) Male 96in 1lb Room:8 Loc:15 School Social Worker:CLARKE Guevara ind: Impression Assessment and Plan Patient is a pleasant 76 y/o male, with PMHx of CAD s/p LAD stent placement x2, chronic systolic CHF, biventricular ICD on 02/06/17, chronic a.fib T2DM, dyslipidemia, CKD stage III, HTN, and hypothyroidism, who presented to the ED because of pulsations to left lateral chest starting around 12PM on 06/16. Left christina chest pulsations due to phrenic nerve stimulation by biventricular ICD- RESOLVED Hypoxic, likely secondary to mild acute on chronic systolic exacerbation: - Admit to tele for cardiac monitoring - Trend cardiac enzymes- initial trop at 0.065, chronically elevated trop ~ 0.050 - EKG QAM and PRN w/ CP - O2 protocol, wean as tolerated- does NOT wear O2 supplement at home - Continue Bumex 2 mg BID, Aldactone 25 mg daily - Per patient, took an extra Lasix 40 mg x1 today, will give an additional dose tomorrow AM - Monitor daily weights and I&Os - Follow PRP - Did not consult cardiology at this time- consider consultation if CHF worsens and/or ICD malfunction again Chronic systolic CHF, CAD s/p LAD stent x2, chronic a.fib, HTN, dyslipidemia- follows w/ Dr. Merino: - Continue Bumex, Aldactone, and PRN Lasix as above - Continue Amiodarone 200 mg daily, Coreg 6.25 mg BID, Imdur 60 mg QAm, KCL 20 mEq daily, Zocor 40 mg daily - Patient takes Coumadin 2.5-5 mg UD- INR 1.5 at admission, given 5 mg tonight- follow PT/INR T2DM: - Continue Lantus 35 u HS - BSG ACHS and sliding insulin scale CKD stage III, baseline Cr. 1.9-2.0- follows w/ Dr. Lockwood- STABLE Hypothyroidism: Continue Synthroid 75 mcg daily Cervicalgia: Continue Gabapentin 100 mg TID DVT prophylaxis: Coumadin Code Status: LEVEL I, FULL Dispo: From home, lives w/ - 7th grade social studies teacher consulted Resident Physician Supervision Note: I interviewed and examined the patient. Discussed with Dr. Perez and agree with findings and plan as documented in the note. Any exceptions or clarifications are listed here: None Documented By: Robin Dawn had chest pain "like music" now gone w pacer reprogrammed. hypoxic but not sob. vitals noted nad breathing unlabored faint basilar rales chest pain - pacer malfunction - appears to have been corrected acute on chronic systolic chf - likely predominantly due to pacer malfunction, ? sodium intake. took extra lasix this AM already, will hold off on additional for now. can give additional if doesn't improve now that pacer working appropriately as well but likely will improve, asymptomatic - so risk of harm from overly aggressive diuresis higher than potential benefit hypoxia - d/w pt likely has more chronic pulmonary edema/hypoxia than he realizes, given no sx despite ~88% on RA. recommend ambulatory pulse ox as outpt (rec'd getting a home pulse ox) to be able to better monitor and therefore hopefully better manage his CHF elevated troponin - chronically elevated, although acute easily could be from demand from hypoxia from mild CHF or from direct irritation from pacer malfunction. either way does not appear acute PA/unstable angina situation otherwise as above Level of Care Telemetry Resuscitation Status FULL RESUSCITATION VTE Prophylaxis VTE Risk Assessment Done? Y/N: Yes Risk Level: Moderate Given or contraindicated: Warfarin (Coumadin)
[2017-06-16] MEDS ORDERED: IV FLUIDS COMPLETED PRN (16:30)
--- NOTE | 2017-06-16 17:26 | EMERGENCY ROOM VISIT NOTE ---
History Report prepared by Stephanie: Carlitos Cruz Under the Supervision of: Dr. Robin Hinton D.O. First contact with patient: 13:12 Chief Complaint: CARDIAC ASSESSMENT Stated Complaint: PACEMAKER ACTING UP, HEARTBEAT IN URQ,MRQ,LRQ Nursing Triage Summary: Pt presents with granddaughter who is translating. Pt seen at primary teaching [facility] because his pacemaker/defib alarm is going off. "His whole left side pulsates when he lays down. He has never had this. It feels like his heart is beating out of chest." Initially felt okay when leaving the primary [facility]. Defib went off 5x on Fri , Sat and Sun. History of Present Illness The patient is a 76 year old male who presents to the Emergency Room with complaints of intermittent chest palpitations beginning last week. The patient does not speak Colombian. History and translation obtained from the patient's granddaughter. She states that he was seen by his primary teaching assistant earlier today. She states that his pacemaker/defibrillator has been beeping since last week and they adjusted in the office. The patient's granddaughter states that it has been beeping up to 5 times a day for the past week. She states that she can feel his heart beat in his entire left side with each heartbeat. The patient denies any chest pain, abdominal pain, or leg swelling. He states that he has felt short of breath since the palpitations began. He is on Warfarin for A-fib, and has been taking it regularly. The patient describes his symptoms as that his heart is "pounding". He had his pacemaker initially placed in 2010, but he had a new one placed within the past year. Source of History: patient, family (granddaughter) Onset: last week Position: chest Quality: other (palpitations) Timing: intermittent Associated Symptoms: + SOB, No chest pain, No abdominal pain Note: The patient denies any leg swelling. Review of Systems See HPI for pertinent positives & negatives. A total of 10 systems reviewed and were otherwise negative. 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 (14) Nephrolithiasis (15) Thyroid dysfunction (16) Two stents Family History Diabetes mellitus FH: cancer Heart disease Hypertension Kidney disease Kidney stones Social History Smoking Status: Never Smoker Alcohol Use: none Drug Use: none Marital Status: Housing Status: lives with family Occupation Status: retired Current/Historical Medications Scheduled Allopurinol (Zyloprim), 100 MG PO BID Amiodarone HCl (Amiodarone HCl), 200 MG PO DAILY Bumetanide (Bumex), 2 MG PO BID Calcitriol (Calcitriol), 0.25 MCG PO MWF Carvedilol (Coreg), 1 TAB PO BID Fluticasone Propionate (Nasal) (Flonase Allergy Relief), 1 SPRAYS ALEX DAILY Gabapentin (Neurontin), 100 MG PO TID Insulin Aspart (Novolog Flexpen), Unknown Dose SC BID Insulin Glargine (Lantus Solostar), Unknown Dose SC HS Ipratropium Cedar (Nasal) (Ipratropium Cedar), 2 SPRAYS ALEX BID Isosorbide Mononitrate Ext Rel (Imdur Ext Rel), 60 MG PO QAM Levothyroxine Sodium (Levothyroxine Sodium), 75 MCG PO DAILY Potassium Ext Rel (Klor-Con), 40 MEQ PO BID Simvastatin (Zocor), 40 MG PO QPM Spironolactone (Aldactone), 25 MG PO QAM Trazodone Hcl (Trazodone), 75 MG PO HS Warfarin Sodium (Coumadin), 2.5-5 MG PO UD Scheduled PRN Meclizine HCl (Meclizine HCl), 25 MG PO TID PRN for Dizziness Nitroglycerin (Nitrostat), 0.4 MG UT UD PRN for Chest Pain Allergies Coded Allergies: No Known Allergies (Verified , 06/16/17) Physical Exam Vital Signs Date Time Temp Pulse Resp B/P (MAP) Pulse Ox O2 Delivery O2 Flow Rate FiO2 06/16/17 16:05 70 28 93 06/16/17 16:01 125/87 06/16/17 15:35 71 24 93 06/16/17 15:30 109/81 06/16/17 15:05 70 21 94 06/16/17 15:00 114/62 06/16/17 14:53 68 21 94 06/16/17 14:30 124/87 06/16/17 14:23 72 24 93 06/16/17 13:53 70 29 94 06/16/17 13:43 73 20 119/78 94 Room Air 06/16/17 13:41 119/78 06/16/17 13:40 70 06/16/17 13:40 68 06/16/17 13:08 92 Nasal Cannula 3.0 06/16/17 13:06 129/74 06/16/17 12:58 78 27 129/74 88 Room Air 06/16/17 12:56 36.4 86 18 129/79 97 Room Air Physical Exam GENERAL: sitting up in bed, on nasal canula, minimal distress. EYE EXAM: normal conjunctiva. OROPHARYNX: no exudate, no erythema, lips, buccal mucosa, and tongue normal and mucous membranes are moist NECK: supple, no nuchal rigidity, no adenopathy, non-tender, faint JVD noted. LUNGS: Normal chest wall mechanics. Diminished at the bases with poor air movement. HEART: no murmurs, S1 normal and S2 normal CHEST: Pacemaker in the left upper chest. ABDOMEN: abdomen soft, non-tender, normo-active bowel sounds, no masses, no rebound or guarding. BACK: Back is symmetrical on inspection and there is no deformity, no midline tenderness, no CVA tenderness. SKIN: no rashes and no bruising UPPER EXTREMITIES: upper extremities are grossly normal. LOWER EXTREMITIES: No pitting edema. NEURO EXAM: Normal sensorium, cranial nerves II-XII grossly intact, normal speech, no gross weakness of arms, no gross weakness of legs. Medical Decision & Procedures ER Provider Diagnostic Interpretation: Radiology results as stated below per my review and the radiologist's interpretation: SINGLE VIEW CHEST FINDINGS: An AP, portable, upright chest radiograph is compared to study dated 04/30/2017. The examination is degraded by portable technique and patient rotation. A 3-lead cardiac AICD is unchanged in position and largely obscures the left mid chest. The heart is enlarged and there is atherosclerotic calcification of the thoracic aorta. Pulmonary vascular congestion is observed and there is mild interstitial edema. There are small layering pleural effusions with bibasilar atelectasis. No pneumothorax is seen. The skeletal structures are osteopenic. The bony thorax is grossly intact. IMPRESSION: 1. Cardiomegaly and AICD. There is evidence of congestive failure and mild interstitial edema. 2. Layering pleural effusions with bibasilar atelectasis. Electronically signed by: Tramaine Orozco M.D. Laboratory Results 06/16/17 13:17 06/16/17 13:17 Test 06/16/17 13:17 06/16/17 13:23 Red Blood Count 4.95 M/uL (4.7-6.1) Mean Corpuscular Volume 95.8 fL (80-100) Mean Corpuscular Hemoglobin 32.1 pg (25-34) Mean Corpuscular Hemoglobin Concent 33.5 g/dl (32-36) RDW Standard Deviation 52.8 fL (36.4-46.3) RDW Coefficient of Variation 15.1 % (11.5-14.5) Mean Platelet Volume 10.0 fL (7.4-10.4) Prothrombin Time 16.1 SECONDS (9.0-12.0) Prothromb Time International Ratio 1.5 (0.9-1.1) Activated Partial Thromboplast Time 28.8 SECONDS (21.0-31.0) Partial Thromboplastin Ratio 1.1 Anion Gap 8.0 mmol/L (3-11) Est Creatinine Clear Calc Drug Dose 36.8 ml/min Estimated GFR () 39.4 Estimated GFR (Non- 34.0 BUN/Creatinine Ratio 26.8 (10-20) Calcium Level 9.3 mg/dl (8.5-10.1) Total Bilirubin 1.6 mg/dl (0.2-1) Aspartate Amino Transf (AST/SGOT) 35 U/L (15-37) Alanine Aminotransferase (ALT/SGPT) 28 U/L (12-78) Alkaline Phosphatase 88 U/L (45-117) Total Creatine Kinase 275 U/L (39-308) Creatine Kinase MB 3.8 ng/ml (0.5-3.6) Creatine Kinase MB Ratio 1.4 (0-3.0) Troponin I 0.065 ng/ml (0-0.045) Pro-B-Type Natriuretic Peptide 5434 pg/ml (0-900) Total Protein 7.5 gm/dl (6.4-8.2) Albumin 3.6 gm/dl (3.4-5.0) Globulin 3.9 gm/dl (2.5-4.0) Albumin/Globulin Ratio 0.9 (0.9-2) Bedside Troponin I 0.040 ng/ml (0-0.045) Laboratory results per my review. Medications Administered Medications (Trade) Dose Ordered Sig/Rajesh Route Start Time Stop Time Status Last Admin Dose Admin Aspirin (Aspirin Chew) 324 mg NOW STAT PO 06/16/17 13:26 06/16/17 13:28 DC 06/16/17 13:43 324 MG ECG Indication: palpitations, SOB/dyspnea Rate (beats per minute): 77 Rhythm: other (Ventricular pacing) Findings: LBBB, ST depression (Septal) Comparison ECG Date: May 01, 2017 Change: ST depressions are more pronounced. ED Course ED COURSE: Vital signs were reviewed and showed hypoxia and tachypnea. The patients medical record was reviewed The above diagnostic studies were performed and reviewed. ED treatments and interventions as stated above. 1314: The patient was evaluated in room C5. A complete history and physical examination was performed. 1320: I spoke with the [employer] software support representative. They changed the leads of the pacemaker, and feel that pacemaker was likely pacing the phrenic nerve previously. 1326: Ordered Aspirin Chew 324 mg PO. 1469: Upon reevaluation, the patient is resting comfortably. I discussed my findings with the patient and he understands and agrees with the treatment plan. Based on the patients age, coexisting illnesses, exam and lab findings the decision to treat as an inpatient was made. The patient remained stable while under my care. The patient will be evaluated for further management. Medical Decision Differential diagnoses includes but is not limited to pneumonia, bronchitis, COPD/Asthma exacerbation, pneumothorax, pulmonary embolism, congestive heart failure, acute coronary syndrome Patient is a 76-year-old male who presents the ER for a shocking feeling on the left side of his body. He had his pacemaker adjusted in cardiology's office earlier today. The leads were changed on his pacemaker. Discussed with [employer] rep and he notes that with the flipping of the leads we are likely irritating the phrenic nerve. Chest x-ray supports mild failure. Patient was hypoxic 88% on room air. CBC along with BMP was unremarkable with a chronic elevation in creatinine. Troponin was slightly elevated at 0.06 which is close to his baseline. EKG shows slightly worse yesterday changes in the septal leads. Discussed the case with internal medicine as patient was hypoxic awaiting for [employer] to reevaluate pacer. Patient was admitted for further workup. Medication Reconcilliation Current Medication List: was personally reviewed by me Blood Pressure Screening Patient's blood pressure: Normal blood pressure Blood pressure disposition: Did not require urgent referral Consults Time Called: [phone] Consulting Physician: Dr. Dawn -CHANTALE Returned Call: [phone] I reviewed the patient's case with Dr. Dawn. ESTEEG will evaluate the patient for further management. Impression Primary Impression: Hypoxia Additional Impressions: CHF (congestive heart failure) Pacemaker malfunction Scribe Attestation The scribe's documentation has been prepared under my direction and personally reviewed by me in its entirety. I confirm that the note above accurately reflects all work, treatment, procedures, and medical decision making performed by me. Departure Information Dispostion Being Evaluated By Hospitalist Referrals ,Noel Palomo M.D. (PCP) Patient Instructions My [facility] Problem Qualifiers Additional Impressions: CHF (congestive heart failure) Congestive heart failure type: unspecified congestive heart failure type Congestive heart failure chronicity: unspecified congestive heart failure chronicity Qualified Codes: I50.9 - Heart failure, unspecified Pacemaker malfunction Encounter type: initial encounter Qualified Codes: T82.111A - Breakdown ( mechanical) of cardiac pulse generator (battery), initial encounter
[2017-06-16 17:45] VITALS: O2SAT 93; Ht 172.7 cm; Wt 93.5 kg
[2017-06-16] MEDS: BUMETANIDE 1 MG TAB PO SCH (19:32)
[2017-06-16 19:52] VITALS: BP 115/72; PULSE 68; TEMP 36.7; O2SAT 92
[2017-06-16 20:00] VITALS: O2SAT 92
[2017-06-16] MEDS ORDERED: INSULIN GLARGINE SOLOSTAR 100 UNITS/ML 3 ML PEN SC SCH (21:00)
[2017-06-16] MEDS ORDERED: TRAZODONE HCL 50 MG TAB PO SCH (21:00)
[2017-06-16] MEDS ORDERED: SIMVASTATIN 40 MG TAB PO SCH (21:00)
[2017-06-16] MEDS: ALLOPURINOL 100 MG TAB PO SCH (21:03)
[2017-06-16] MEDS: CARVEDILOL 6.25 MG TAB PO SCH (21:04)
[2017-06-16] MEDS: SENNA 8.6 MG TAB PO SCH (21:04)
[2017-06-16] MEDS: POTASSIUM CHLORIDE 20 MEQ TABCR PO SCH (21:04)
[2017-06-16] MEDS: GABAPENTIN 100 MG CAP PO SCH (21:04)
[2017-06-16] MEDS: IPRATROPIUM BROMIDE NASAL SPRAY 0.06% 15ML NAE SCH (21:04)
[2017-06-16] MEDS: INSULIN ASPART 100 UNITS/ML 3 ML PEN SC SCH (21:13)
[2017-06-17] VITALS (7 sets, daily range): BP systolic 90–117; BP diastolic 60–69; PULSE 69–75; TEMP 36.3–36.9; O2SAT 90–94
[2017-06-17] MEDS: ACETAMINOPHEN 325 MG TAB PO PRN ×2 (04:07→08:03)
[2017-06-17 05:15] LABS: INR 1.4 (0.9-1.1); PROTHROMBIN TIME (PATIENT) 15.6 SECONDS (9.0-12.0)
[2017-06-17 05:53] LABS: BLOOD UREA NITROGEN 50 mg/dl (7-18); BUN/CREATININE RATIO 25.1 (10-20); CALCIUM 9.2 mg/dl (8.5-10.1); CARBON DIOXIDE 33 mmol/L (21-32); CHLORIDE 99 mmol/L (98-107); GLUCOSE 115 mg/dl (70-99); POTASSIUM 3.1 mmol/L (3.5-5.1); SODIUM 137 mmol/L (136-145)
[2017-06-17] MEDS ORDERED: LEVOTHYROXINE 75 MCG TAB PO SCH (06:00)
[2017-06-17] MEDS ORDERED: POTASSIUM CHLORIDE 20 MEQ TABCR PO ONE (07:30)
[2017-06-17] MEDS ORDERED: CALCITRIOL 0.25 MCG CAP PO SCH (08:00)
[2017-06-17] MEDS ORDERED: MAGNESIUM SULFATE 1GM / D5W 1 GM in PREMIXED IN D5W 100 ML IV ONE (08:00)
[2017-06-17] MEDS: IPRATROPIUM BROMIDE NASAL SPRAY 0.06% 15ML NAE SCH (08:08)
[2017-06-17] MEDS: POTASSIUM CHLR 10 MEQ / WTR 10 MEQ in PREMIXED WATER 100 ML IV SCH ×3 (08:08→11:00)
[2017-06-17] MEDS: CARVEDILOL 6.25 MG TAB PO SCH (08:09)
[2017-06-17] MEDS: BUMETANIDE 1 MG TAB PO SCH (08:09)
[2017-06-17] MEDS: GABAPENTIN 100 MG CAP PO SCH ×2 (08:10→13:15)
[2017-06-17] MEDS: SENNA 8.6 MG TAB PO SCH (08:15)
[2017-06-17] MEDS: ALLOPURINOL 100 MG TAB PO SCH (08:15)
[2017-06-17] MEDS: POTASSIUM CHLORIDE 20 MEQ TABCR PO SCH (08:15)
[2017-06-17] MEDS: INSULIN ASPART 100 UNITS/ML 3 ML PEN SC SCH ×2 (08:22→12:32)
[2017-06-17] MEDS ORDERED: FUROSEMIDE 40 MG TAB PO ONE (09:00)
[2017-06-17] MEDS ORDERED: SPIRONOLACTONE 25 MG TAB PO SCH (09:00)
[2017-06-17] MEDS ORDERED: FLUTICASONE PROPIONATE NA SPR 16 GM BTL NAE SCH (09:00)
[2017-06-17] MEDS ORDERED: ISOSORBIDE MONONITRATE 60 MG TABCR PO SCH (09:00)
[2017-06-17] MEDS ORDERED: AMIODARONE 200 MG TAB PO SCH (09:00)
[2017-06-17] MEDS ORDERED: ASPIRIN 81 MG ECTAB PO SCH (09:00)
[2017-06-17] MEDS ORDERED: TRAMADOL HCL 50 MG TAB PO STA (09:56)
[2017-06-17] MEDS ORDERED: TRAM-10 PO (13:35)
--- NOTE | 2017-06-17 13:38 | Discharge Instructions ---
Discharge Instructions Date of Service Jun 17, 2017. Admission Reason for Admission: Acute Systolic Heart Failure Discharge Discharge Diagnosis / Problem: pacemaker misfunction, hypokalemia Discharge Goals Goal(s): Diagnostic testing, Therapeutic intervention Activity Recommendations Activity Limitations: resume your previous activity Your blood thinner level is low, please take 5 mg 06/17 and and have your blood rechecked the morning of 06/[address] and contact your doctor in the afternoon for further recommendations of dosing . Current Hospital Diet Patient's current hospital diet: AHA Diet (Heart Healthy), Low Sodium Diet (2gm Na) Discharge Diet Recommended Diet: Low Sodium Diet (2gm Na) Pending Studies Studies pending at discharge: no Medical Emergencies . Who to Call and When: Medical Emergencies: If at any time you feel your situation is an emergency, please call 911 immediately. . Non-Emergent Contact Non-Emergency issues call your: District Or District Office Director Call Non-Emergent contact if: temperature is above 101, your pain is unusual for you . . "Provider Documentation" section prepared by Matt Dobson. . VTE Core Measure Inpt VTE Proph given/why not?: Warfarin (Coumadin)
--- NOTE | 2017-06-17 15:36 | Discharge Summary ---
Discharge Summary Date of Service Jun 17, 2017. Discharge Summary Admission Date: Jun 16, 2017 at 16:05 Discharge Date: Jun 17, 2017 Discharge Disposition: Home Principal Diagnosis: pacemaker phrenic nerve stimulation, acute on chronic neck pain, hypokalemi Immunizations: Have You Had Influenza Vaccine: No Influenza Vaccine Date: Jul 15, 2010 History of Tetanus Vaccine?: Yes Tetanus Immunization Date: Jul 15, 2010 History of Pneumococcal: Yes Pneumococcal Date: March 03, 2009 History of Hepatitis B Vaccine: No Medication Reconciliation New Medications: Tramadol (Ultram) 50 Mg Tab 50 MG PO Q8H PRN for Pain, #30 TAB Continued Medications: Allopurinol (Zyloprim) 100 Mg Tab 100 MG PO BID, TAB Amiodarone HCl (Amiodarone HCl) 200 Mg Tab 200 MG PO DAILY, #30 TAB 2 Refills Bumetanide (Bumex) 2 Mg Tab 2 MG PO BID, #60 TAB 5 Refills take 1 tablet every morning and 1 tablet every afternoon Calcitriol (Calcitriol) 0.25 Mcg Cap 0.25 MCG PO MWF, #30 CAP 2 Refills Carvedilol (Coreg) 6.25 Mg Tab 1 TAB PO BID for 90 Days, #180 TAB 3 Refills Fluticasone Propionate (Nasal) (Flonase Allergy Relief) 50 Mcg/Act Spr 1 SPRAYS ALEX DAILY Gabapentin (Neurontin) 100 Mg Cap 100 MG PO TID, CAP Insulin Aspart (Novolog Flexpen) 100 Units/Ml Inj Unknown Dose SC BID Insulin Glargine (Lantus Solostar) 100 Unit/Ml Inj Unknown Dose SC HS, PEN Ipratropium [place] (Nasal) (Ipratropium [place]) 0.06 % Spr 2 SPRAYS ALEX BID Isosorbide Mononitrate Ext Rel (Imdur Ext Rel) 60 Mg Ertab 60 MG PO QAM, 0 Refills Levothyroxine Sodium (Levothyroxine Sodium) 75 Mcg Tab 75 MCG PO DAILY, 3 Refills Meclizine HCl (Meclizine HCl) 25 Mg Tab 25 MG PO TID PRN for Dizziness for 14 Days, #42 TAB Nitroglycerin (Nitrostat) 0.4 Mg Tab 0.4 MG UT UD PRN for Chest Pain, 0 Refills Potassium Ext Rel (Klor-Con) 20 Meq Tabcr 40 MEQ PO BID, TAB Simvastatin (Zocor) 40 Mg Tab 40 MG PO QPM, TAB Spironolactone (Aldactone) 25 Mg Tab 25 MG PO QAM, TAB Trazodone Hcl (Trazodone) 50 Mg Tab 75 MG PO HS, TAB Warfarin Sodium (Coumadin) 5 Mg Tab 2.5-5 MG PO UD, TAB Discharge Exam Review of Systems: Constitutional: No chills, No sweats Respiratory: No cough, No sputum, No shortness of breath, No dyspnea on exertion Cardiovascular: No chest pain, No orthopnea, No PND Physical Exam: General Appearance: WD/WN, no apparent distress Eyes: PERRL, EOMI Neck: supple (but has some left posterior muscular pain to exam), no JVD Respiratory/Chest: chest non-tender, lungs clear, normal breath sounds Cardiovascular: regular rate, rhythm, no murmur Abdomen / GI: normal bowel sounds, non tender, soft Hospital Course 76 M with pacemaker stimulation of phrenic nerve, Chronic systolic HF, elevated troponin, PMHx of CAD s/p LAD stent placement x2, chronic systolic CHF , biventricular ICD on 02/06/17, chronic a.fib T2DM, dyslipidemia, CKD stage III , HTN, and hypothyroidism. Left lateral chest pulsations due to phrenic nerve stimulation by biventricular ICD-resolved with adjustment of pacemaker chronic systolic exacerbation with hypoxia, hypoxia resolved, pt related thru fiber analyst feels at baseline Bumex 2 mg BID, Aldactone 25 mg daily,Amiodarone 200 mg daily, Coreg 6.25 mg BID , Imdur 60 mg QAm, KCL 20 mEq daily, Zocor 40 mg daily Coumadin 2.5-5 mg UD- INR 1.5 at admission, asked to take 5 mg daily and have INR on thursday with call to pcp for insturctions over weekend, CAD s/p LAD stent x2, chronic a.fib, HTN, dyslipidemia- follows w/ Dr. Merino: T2DM:Lantus 35 u HS- BSG ACHS and sliding insulin scale CKD stage III, baseline Cr. 1.9-2.0- STABLE Hypothyroidism:Synthroid 75 mcg daily Cervicalgia: Gabapentin 100 mg TID, adding tramadol as did have some increase in Cr with initial iv diuretic DVT prophylaxis: Coumadin Code Status: LEVEL I, FULL Total Time Spent: Greater than 30 minutes This includes examination of the patient, discharge planning, medication reconciliation, and communication with other providers. Discharge Instructions Please refer to the electronic Patient Visit Report (Discharge Instructions) for additional information.
== END 2017-06-17 15:57 | disposition home or self-care (01) ==
LOC: C.EDB 12:54 → C.2T 16:05 → ENRESERV 16:13
PROVIDERS: ADMIT Family Medicine; ATTEND Internal Medicine
DX: T82.191A Other mechanical complication of cardiac pulse generator (battery), initial encounter (principal); Y83.1 Surgical operation with implant of artificial internal device as the cause of abnormal reaction of the patient, or of later complication, without mention of misadventure at the time of the procedure; I50.23 Acute on chronic systolic (congestive) heart failure; E87.6 Hypokalemia; R09.02 Hypoxemia; E11.22 Type 2 diabetes mellitus with diabetic chronic kidney disease; N18.3 Chronic kidney disease, stage 3 (moderate); M54.2 Cervicalgia; I13.0 Hypertensive heart and chronic kidney disease with heart failure and stage 1 through stage 4 chronic kidney disease, or unspecified chronic kidney disease; E03.9 Hypothyroidism, unspecified; K21.9 Gastro-esophageal reflux disease without esophagitis; E78.5 Hyperlipidemia, unspecified; I48.2 Chronic atrial fibrillation; Z79.01 Long term (current) use of anticoagulants; Z82.49 Family history of ischemic heart disease and other diseases of the circulatory system; Z84.1 Family history of disorders of kidney and ureter; Z79.899 Other long term (current) drug therapy; Z83.3 Family history of diabetes mellitus; Z95.0 Presence of cardiac pacemaker; Z79.4 Long term (current) use of insulin

== ENCOUNTER → 2017-06-18 | Outpatient (CLI) | payer OTHER ==
[~2017-06-18] MED LIST changes: +SPIR25TA PO; +TRAM-10 PO
[2017-06-18 12:57] LABS: ESTIMATED AVERAGE GLUCOSE 154 mg/dl; HA1C FLAG Normal (Normal)
[2017-06-18 13:15] LABS: CHOLESTEROL/HDL RATIO 2.4; THYROID STIMULATING HORMONE 1.56 uIu/ml (0.300-4.500)
== END | disposition home or self-care (01) ==
LOC: C.LAB1850 10:16
PROVIDERS: ATTEND Physician Assistant
DX: E11.65 Type 2 diabetes mellitus with hyperglycemia (principal)

== ENCOUNTER → 2017-07-17 | Outpatient (CLI) | payer OTHER ==
[2017-07-17 17:59] LABS: HEMATOCRIT 50.3 % (42-52); MEAN CELL VOLUME 98.4 fL (80-100); MEAN CORPUSCULAR HEMOGLOBIN 31.7 pg (25-34); MEAN CORPUSCULAR HGB CONC 32.2 g/dl (32-36); MEAN PLATELET VOLUME 10.1 fL (7.4-10.4); PLATELET COUNT 112 K/uL (130-400); RED BLOOD COUNT 5.11 M/uL (4.7-6.1); WHITE BLOOD COUNT 6.12 K/uL (4.8-10.8)
[2017-07-17 18:05] LABS: ALT/SGPT 33 U/L (12-78); BLOOD UREA NITROGEN 30 mg/dl (7-18); BUN/CREATININE RATIO 16.8 (10-20); CALCIUM 9.3 mg/dl (8.5-10.1); CARBON DIOXIDE 30 mmol/L (21-32); CHLORIDE 102 mmol/L (98-107); GLUCOSE 137 mg/dl (70-99); POTASSIUM 3.9 mmol/L (3.5-5.1); SODIUM 140 mmol/L (136-145)
[2017-07-17 18:08] LABS: ALB/GLOB RATIO 0.9 (0.9-2); ALKALINE PHOSPHATASE 94 U/L (45-117); AST/SGOT 31 U/L (15-37)
== END | disposition home or self-care (01) ==
LOC: C.LAB1850 17:08
PROVIDERS: ATTEND Internal Medicine
DX: N18.3 Chronic kidney disease, stage 3 (moderate) (principal)

== ENCOUNTER → 2017-07-21 | Outpatient (CLI) | payer OTHER ==
--- NOTE | 2017-07-21 09:40 | DIAGNOSTIC IMAGING REPORT ---
R VENOUS DOPP LOWER EXT UNILAT CLINICAL HISTORY: SACROILIITIS pain TECHNIQUE: Venous Doppler COMPARISON STUDY: None FINDINGS: Normal study IMPRESSION: Normal study The above report was generated using voice recognition software. It may contain grammatical, syntax or spelling errors. Electronically signed by: Harjeet Tellez M.D. 07/21/2017 9:39 AM Dictated Date/Time: 07/21/2017 9:38 AM
== END | disposition home or self-care (01) ==
LOC: C.ULTRBC 09:07
PROVIDERS: ATTEND Internal Medicine
DX: M79.604 Pain in right leg (principal)

== ENCOUNTER → 2017-07-29 | Outpatient (CLI) | payer OTHER ==
[2017-07-29 13:33] LABS: PROSTATE SPECIFIC ANTIGEN 0.77 ng/ml (0.000-4.000); THYROID STIMULATING HORMONE 1.2 uIu/ml (0.300-4.500)
== END | disposition home or self-care (01) ==
LOC: C.LAB1850 09:59
PROVIDERS: ATTEND Urology
DX: E11.65 Type 2 diabetes mellitus with hyperglycemia (principal); N40.1 Benign prostatic hyperplasia with lower urinary tract symptoms; M26.609 Unspecified temporomandibular joint disorder, unspecified side

== ENCOUNTER → 2017-08-12 | Outpatient (CLI) | payer OTHER ==
--- NOTE | 2017-08-12 11:55 | DIAGNOSTIC IMAGING REPORT ---
CHEST 2 VIEWS ROUTINE CLINICAL HISTORY: Z95.810 Biventricular ICD (implantable cardioverter-defibrillator COMPARISON STUDY: 06/14/2017 FINDINGS: The heart is enlarged. There is a left subclavian pacer/defibrillator present. There is persistent mild pulmonary vascular congestion. There is no lobar consolidation. There are no significant pleural effusions.[ IMPRESSION: 1. Cardiomegaly and mild pulmonary vascular congestion, similar to the preceding study 2. No evidence of acute parenchymal consolidation Electronically signed by: Anton Collazo M.D. 08/12/2017 11:54 AM Dictated Date/Time: 08/12/2017 11:53 AM
== END | disposition home or self-care (01) ==
LOC: C.RAD1850 11:30
PROVIDERS: ATTEND Internal Medicine Cardiovascular Disease
DX: Z95.810 Presence of automatic (implantable) cardiac defibrillator (principal); I51.7 Cardiomegaly; I28.8 Other diseases of pulmonary vessels

== ENCOUNTER 2017-08-21 16:09 | Emergency (ER) | payer OTHER ==
[~2017-08-21] VITALS: Ht 172.7 cm; Wt 97.6 kg
[2017-08-21 16:22] VITALS: TEMP 36.6; Ht 172.7 cm; Wt 97.6 kg
[2017-08-21] MEDS ORDERED: HYDROCODONE/ACETAMOPHEN 5/325MG TAB PO STA (16:34)
[2017-08-21 17:00] LABS: HEMATOCRIT 48.8 % (42-52); MEAN CELL VOLUME 96.3 fL (80-100); MEAN CORPUSCULAR HEMOGLOBIN 31.8 pg (25-34); RED BLOOD COUNT 5.07 M/uL (4.7-6.1); WHITE BLOOD COUNT 8.74 K/uL (4.8-10.8)
[2017-08-21] MEDS ORDERED: WARF5TAB90 PO (17:02)
[2017-08-21] MEDS ORDERED: TRAM-10 PO ×2 (17:02→17:48)
[2017-08-21] MEDS ORDERED: TRAZ50TA35 PO (17:02)
[2017-08-21] MEDS ORDERED: SPIR25TA PO (17:02)
[2017-08-21] MEDS ORDERED: BUME2TAB3 PO (17:02)
[2017-08-21] MEDS ORDERED: CALC0.2510 PO (17:02)
[2017-08-21] MEDS ORDERED: LEVO75TA5 PO (17:02)
[2017-08-21] MEDS ORDERED: AMIO200T4 PO (17:02)
[2017-08-21] MEDS ORDERED: ISOS60TA25 PO (17:02)
[2017-08-21] MEDS ORDERED: POTA1POW PO (17:02)
[2017-08-21] MEDS ORDERED: ALLO100T PO (17:02)
[2017-08-21] MEDS ORDERED: SIMV40TA2 PO (17:02)
[2017-08-21] MEDS ORDERED: GABA-112 PO (17:02)
[2017-08-21 17:10] LABS: INR 1.2 (0.9-1.1); PARTIAL THROMBOPLASTIN RATIO 1.1; PROTHROMBIN TIME (PATIENT) 12.7 SECONDS (9.0-12.0)
[2017-08-21 17:18] LABS: BUN/CREATININE RATIO 22.6 (10-20); CALCIUM 8.8 mg/dl (8.5-10.1); CREATININE 1.82 mg/dl (0.60-1.40); POTASSIUM 4.7 mmol/L (3.5-5.1)
[2017-08-21 17:26] LABS: BASO % 0.2 %; BASO ABS # 0.02 K/uL (0-0.2); COMPLETE YES; EOS % 3.1 %; IG% 0.3 %; LYMPH % 9.6 %; LYMPH ABS # 0.84 K/uL (1.2-3.4); MEAN PLATELET VOLUME 9.9 fL (7.4-10.4); MONO % 9.2 %; NEUT % 77.6 %; PLATELET COUNT 96 K/uL (130-400); PLT ESTIMATE DECREASED
[2017-08-21] MEDS ORDERED: TRAMADOL HCL 50 MG HOME PACK PO ONE (17:45)
[2017-08-21] MEDS ORDERED: PRDXLUD PO (17:48)
--- NOTE | 2017-08-21 17:49 | EMERGENCY ROOM VISIT NOTE ---
History Report prepared by Stephanie: Yara Mo Under the Supervision of: Dr. Manuelito Barraza M.D. First contact with patient: 16:26 Chief Complaint: DENTAL PAIN Stated Complaint: MOUTH BLEEDING AFTER ORAL SURGERY, ON COUMADIN History of Present Illness The patient is a 77 year old white male with a past medical history of Coumadin use, tooth extraction at 1100 today who presents to the ED with a cc of persistent mouth bleeding beginning 4 hours ago. Positive sharp pain with swallowing. He has been off of Coumadin for 5 days prior to the tooth extraction. Source of History: patient, family Onset: 4 hours ago Position: other (mouth) Quality: other (bleeding) Timing: other (persistent) Note: Pt reports pain with swallowing. Review of Systems See HPI for pertinent positives and negatives. A total of ten systems were reviewed and were otherwise negative. 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 (14) Nephrolithiasis (15) Thyroid dysfunction (16) Two stents Family History Diabetes mellitus FH: cancer Heart disease Hypertension Kidney disease Kidney stones Social History Smoking Status: Never Smoker Alcohol Use: none Drug Use: none Marital Status: Housing Status: lives with family Occupation Status: retired Current/Historical Medications Scheduled Allopurinol (Zyloprim), 100 MG PO BID Amiodarone Hcl (Cordarone), 200 MG PO DAILY Bumetanide (Bumex), 2 MG PO BID Calcitriol (Rocaltrol Cap), 0.25 MCG PO MWF Fluticasone Propionate (Nasal) (Flonase Allergy Relief), 1 SPRAYS ALEX DAILY Gabapentin (Neurontin), 100 MG PO TID Isosorbide Mononitrate Ext Rel (Imdur Ext Rel), 60 MG PO QAM Levothyroxine Sodium (Levothyroxine Sodium), 1 TAB PO DAILY Potassium Chloride Pwd (Klor-Con Pwd), 2 TAB PO BID Simvastatin (Zocor), 40 MG PO QPM Spironolactone (Aldactone), 25 MG PO QAM Trazodone Hcl (Trazodone), 0.5-1 TAB PO HS Warfarin Sodium (Coumadin), 5 MG PO UD Scheduled PRN Chlorhexidine Gluconate (Peridex Oral Soln), 5 ML PO BID PRN for mouth pain Nitroglycerin (Nitrostat), 0.4 MG UT UD PRN for Chest Pain Tramadol (Ultram), 50 MG PO Q8H PRN for Pain Tramadol (Ultram), 50 MG PO Q8H PRN for Pain Allergies Coded Allergies: No Known Allergies (Verified , 08/21/17) Physical Exam Vital Signs Date Time Temp Pulse Resp B/P (MAP) Pulse Ox O2 Delivery O2 Flow Rate FiO2 08/21/17 17:58 70 16 109/70 92 08/21/17 16:22 36.6 78 20 127/81 94 Room Air Physical Exam GENERAL: Awake, alert, well-appearing, NAD HENT: Normocephalic, atraumatic. Tooth number 16 absent. Clot formation and suture present. Mild swelling. No posterior pharyngeal swelling. No stridor to anterior neck. EYES: Normal conjunctiva. Sclera non-icteric. NECK: Supple. No nuchal rigidity. FROM. RESPIRATORY: CTAB, no rhonchi, wheezing, crackles CARDIAC: RRR, no MRG ABDOMEN: Soft, NTND, BS+ MSK: No chest wall TTP, no LE edema NEURO: GCS 15, CN 2-12 intact, moves all 4s on command SKIN: No rash or jaundice noted. Medical Decision & Procedures Laboratory Results 08/21/17 16:50 Red Blood Count 5.07, Mean Corpuscular Volume 96.3, Mean Corpuscular Hemoglobin 31.8, Mean Corpuscular Hemoglobin Concent 33.0, Mean Platelet Volume 9.9, Neutrophils (%) (Auto) 77.6, Lymphocytes (%) (Auto) 9.6, Monocytes (%) (Auto) 9.2, Eosinophils (%) (Auto) 3.1, Basophils (%) (Auto) 0.2, Neutrophils # (Auto) 6.78, Lymphocytes # (Auto) 0.84, Monocytes # (Auto) 0.80, Eosinophils # (Auto) 0.27, Basophils # (Auto) 0.02 08/21/17 16:50 Test 08/21/17 16:50 White Blood Count 8.74 K/uL (4.8-10.8) Red Blood Count 5.07 M/uL (4.7-6.1) Hemoglobin 16.1 g/dL (14.0-18.0) Hematocrit 48.8 % (42-52) Mean Corpuscular Volume 96.3 fL (80-100) Mean Corpuscular Hemoglobin 31.8 pg (25-34) Mean Corpuscular Hemoglobin Concent 33.0 g/dl (32-36) Platelet Count 96 K/uL (130-400) Mean Platelet Volume 9.9 fL (7.4-10.4) Neutrophils (%) (Auto) 77.6 % Lymphocytes (%) (Auto) 9.6 % Monocytes (%) (Auto) 9.2 % Eosinophils (%) (Auto) 3.1 % Basophils (%) (Auto) 0.2 % Neutrophils # (Auto) 6.78 K/uL (1.4-6.5) Lymphocytes # (Auto) 0.84 K/uL (1.2-3.4) Monocytes # (Auto) 0.80 K/uL (0.11-0.59) Eosinophils # (Auto) 0.27 K/uL (0-0.5) Basophils # (Auto) 0.02 K/uL (0-0.2) RDW Standard Deviation 51.3 fL (36.4-46.3) RDW Coefficient of Variation 14.5 % (11.5-14.5) Immature Granulocyte % (Auto) 0.3 % Immature Granulocyte # (Auto) 0.03 K/uL (0.00-0.02) Platelet Estimate DECREASED Prothrombin Time 12.7 SECONDS (9.0-12.0) Prothromb Time International Ratio 1.2 (0.9-1.1) Activated Partial Thromboplast Time 28.0 SECONDS (21.0-31.0) Partial Thromboplastin Ratio 1.1 Anion Gap 4.0 mmol/L (3-11) Est Creatinine Clear Calc Drug Dose 39.7 ml/min Estimated GFR () 41.2 Estimated GFR (Non- 35.5 BUN/Creatinine Ratio 22.6 (10-20) Calcium Level 8.8 mg/dl (8.5-10.1) Laboratory results reviewed by me Medications Administered Medications (Trade) Dose Ordered Sig/Rajesh Route Start Time Stop Time Status Last Admin Dose Admin Acetaminophen/ Hydrocodone Bitart ([place] 5/325 Tab) 1 tab NOW STAT PO 08/21/17 16:34 08/21/17 16:36 DC 08/21/17 16:49 1 TAB Tramadol HCl (Ultram Home Pack) 1 homepack UD ONCE PO 08/21/17 17:45 08/21/17 17:46 DC 08/21/17 17:56 1 HOMEPACK ED Course 1628: The patient was evaluated in room B9. A complete history and physical exam was performed. 1634: [place] 5/325 Tab 1 tab PO. 1730: I reevaluated the patient. Discussed results and discharge instructions: He verbalized understanding and agreement. The patient is ready for discharge. 1745: Tramadol HCl 1 homepack PO. Medical Decision The patient is a 77 year old white male with PMHx phrenic nerve stim, CHF, CAD s /p LAD stent x 2, bivent ICD, a fib on coumadin, CKD, HLD, hypothyoridism w/ recent tooth extraction at 1100 today who presents to the ED with a cc of persistent mouth bleeding beginning 4 hours ago. Differential diagnosis: coagulopathy, medication side effect. Patient was seen and evaluated the bedside. On exam patient did have some clotted informed to the area where the #16 tooth in the left maxillary area have been extracted. Patient had clot but no active bleeding. Patient had no posterior pharyngeal swelling or uvular deviation. Patient was able swallow without issue. Patient cavity was packed with gauze. Patient was given pain medication. Work was obtained. Patient's pain improved. Upon reassessment patient had no more bleeding. Patient was given some Peridex as well as tramadol for home. Patient was also told he may continue to take Tylenol but should avoid Motrin or NSAIDs given his past medical history. Patient's INR was 1.2. Patient was to be taking antibiotics at home was told to continue with those with food. Patient family were informed of the plan of care. Patient was deemed suitable for outpatient follow-up and treatment and was given follow-up, discharge, and return precautions. Patient and family agreed with plan of care and patient was safely discharged home. Medication Reconcilliation Current Medication List: was personally reviewed by me Blood Pressure Screening Patient's blood pressure: Normal blood pressure Blood pressure disposition: Did not require urgent referral Impression Primary Impression: Surgical wound hemorrhage after dental procedure Scribe Attestation The scribe's documentation has been prepared under my direction and personally reviewed by me in its entirety. I confirm that the note above accurately reflects all work, treatment, procedures, and medical decision making performed by me. Departure Information Dispostion Home / Self-Care Prescriptions Chlorhexidine Gluconate (PERIDEX ORAL SOLN) 480 Ml Soln 5 ML PO BID Y for mouth pain, #60 ML Prov: Manuelito Barraza M.D. 08/21/17 Tramadol (Ultram) 50 Mg Tab 50 MG PO Q8H Y for Pain, #12 TAB Prov: Manuelito Barraza M.D. 08/21/17 Referrals No Doctor, Assigned (PCP) Patient Instructions Coumadin, My [facility] Additional Instructions Please return to the emergency department if you have worsening or recurrent symptoms not amenable to at-home treatment. Please call for a follow-up appointment with her primary care physician. Please take your medications as prescribed. If you have other concerns and/or complaints please feel free to also call your primary care physician's office or return the ED for further evaluation, management, and treatment. You received narcotic or benzodiazepene medication while in the emergency room today. This is an addictive medication that may cause drowziness as well as constipation. Do not drive, operate heavy machinery, or drink alcohol under the influence of this medication. You may take tylenol 1000mg every 6 hours as needed for pain. Take tramadol for breakthrough pain. Thank you for your time and consideration. I look forward to speaking with you again soon. Please don't hesitate to call us if you have any questions.
[2017-08-21 17:58] VITALS: BP 109/70; PULSE 70; O2SAT 92
== END 2017-08-21 17:58 | disposition home or self-care (01) ==
LOC: C.EDB 16:11
DX: K91.840 Postprocedural hemorrhage of a digestive system organ or structure following a digestive system procedure (principal); E11.9 Type 2 diabetes mellitus without complications; I50.9 Heart failure, unspecified; I12.9 Hypertensive chronic kidney disease with stage 1 through stage 4 chronic kidney disease, or unspecified chronic kidney disease; I25.10 Atherosclerotic heart disease of native coronary artery without angina pectoris; I48.91 Unspecified atrial fibrillation; N18.9 Chronic kidney disease, unspecified; E03.9 Hypothyroidism, unspecified; E78.5 Hyperlipidemia, unspecified; Z95.0 Presence of cardiac pacemaker; Z83.3 Family history of diabetes mellitus; Z82.49 Family history of ischemic heart disease and other diseases of the circulatory system; Z84.1 Family history of disorders of kidney and ureter; Z79.01 Long term (current) use of anticoagulants

== ENCOUNTER 2017-09-08 03:34 | Emergency (ER) | payer OTHER ==
[~2017-09-08] VITALS: Ht 172.7 cm; Wt 98.5 kg
[~2017-09-08 03:34] MED LIST changes: +AMIO200T4 PO; -ANT25 PO; +CALC0.2510 PO; -CARV6.252 PO; -CRD200 PO; -INSDGIPEN SC; -IPRA0.06 NAE; -NVLGI/PEN SC; +POTA1POW PO; -POTA20TA16 PO; +PRDXLUD PO; -RCL25 PO; +SIMV40TA2 PO; -SIMV40TA4 PO
[2017-09-08 03:41] VITALS: Ht 172.7 cm; Wt 98.5 kg
[2017-09-08] MEDS ORDERED: ALBUT/IPRATROP 3MG/0.5MG NEB 3 ML VIAL INH STA (04:01)
[2017-09-08] MEDS ORDERED: CARV6.252 PO (04:01)
[2017-09-08] MEDS ORDERED: METO2.5T PO (04:04)
[2017-09-08] MEDS ORDERED: MECL1TAB42 PO (04:08)
[2017-09-08] MEDS ORDERED: TRAM-10 PO (04:09)
[2017-09-08 04:10] LABS: BASO % 0.2 %; BASO ABS # 0.02 K/uL (0-0.2); COMPLETE YES; EOS % 0.2 %; IG% 0.5 %; LYMPH % 7.4 %; LYMPH ABS # 0.75 K/uL (1.2-3.4); MEAN CELL VOLUME 96.7 fL (80-100); MEAN CORPUSCULAR HEMOGLOBIN 31.9 pg (25-34); MONO % 14.7 %; PLATELET COUNT 179 K/uL (130-400); RED BLOOD COUNT 4.86 M/uL (4.7-6.1); WHITE BLOOD COUNT 10.18 K/uL (4.8-10.8)
--- NOTE | 2017-09-08 04:11 | EMERGENCY ROOM VISIT NOTE ---
History Report prepared by Stephanie: Yara Mo Under the Supervision of: Dr. Lilia Cannon M.D. First contact with patient: 03:51 Chief Complaint: COUGH Stated Complaint: COUGH X MANY DAYS, NO SLEEP, History of Present Illness The patient is a 77 year old male who presents to the Emergency Room with complaints of persistent cough starting last week. He is coughing up some bloody sputum. He has been using Mucinex to no significant relief. He is having some pain in his left ribs. He is SOB with walking. He has not had any sneezing or fever. He has had redness in his eyes recently. Source of History: patient, family Onset: last week Position: other (global) Quality: other (cough) Timing: other (persistent) Associated Symptoms: + SOB, No fevers Note: Pt has left rib pain, eye redness. Review of Systems See HPI for pertinent positives & negatives. A total of 10 systems reviewed and were otherwise negative. 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 (14) Nephrolithiasis (15) Thyroid dysfunction (16) Two stents Family History Diabetes mellitus FH: cancer Heart disease Hypertension Kidney disease Kidney stones Social History Smoking Status: Never Smoker Alcohol Use: none Drug Use: none Marital Status: Housing Status: lives with family Occupation Status: retired Current/Historical Medications Scheduled Allopurinol (Zyloprim), 100 MG PO BID Amiodarone Hcl (Cordarone), 200 MG PO DAILY Azithromycin (Azithromycin), 1 TAB PO DAILY Bumetanide (Bumex), 2 MG PO BID Calcitriol (Rocaltrol Cap), 0.25 MCG PO MWF Carvedilol (Coreg), 6.25 MG PO BID Cefdinir (Omnicef), 300 MG PO Q12H Gabapentin (Neurontin), 100 MG PO TID Isosorbide Mononitrate Ext Rel (Imdur Ext Rel), 60 MG PO QAM Levothyroxine Sodium (Levothyroxine Sodium), 1 TAB PO DAILY Meclizine Hcl (Meclizine Hcl), 25 MG PO DIRECTED Metolazone (Zaroxolyn), 2.5 MG PO DIRECTED Potassium Chloride Pwd (Klor-Con Pwd), 2 TAB PO BID Simvastatin (Zocor), 40 MG PO QPM Spironolactone (Aldactone), 25 MG PO QAM Trazodone Hcl (Trazodone), 0.5-1 TAB PO HS Warfarin Sodium (Coumadin), 5 MG PO UD Scheduled PRN Nitroglycerin (Nitrostat), 0.4 MG UT UD PRN for Chest Pain Tramadol (Ultram), 50 MG PO Q8H PRN for Pain Allergies Coded Allergies: No Known Allergies (Verified , 09/08/17) Physical Exam Vital Signs Date Time Temp Pulse Resp B/P (MAP) Pulse Ox O2 Delivery O2 Flow Rate FiO2 09/08/17 06:32 37.0 70 22 106/69 95 Room Air 09/08/17 05:13 36.9 70 23 129/76 92 Room Air 2.0 09/08/17 04:08 92 Room Air 09/08/17 03:55 71 09/08/17 03:41 36.8 84 22 122/67 93 Room Air Physical Exam Vital signs reviewed. General: Well-appearing male, in no significant distress. Moist cough productive of a purulent blood tinged sputum. HEENT: No scleral icterus, PERRLA, neck supple. Atraumatic. Cardiovascular: Regular rate and rhythm, no extra sounds. Pulmonary: Subtle crackles at the bases bilaterally, normal work of breathing. Abdomen: Obese, soft, nontender, nondistended, positive bowel sounds. Musculoskeletal: Atraumatic, no peripheral edema. Neurologic: Patient awake alert and oriented x 3 Skin: Warm, dry, no rash Medical Decision & Procedures ER Provider Diagnostic Interpretation: X-ray results as stated below per interpretation by me: Chest X-ray, 2 view: Pacemaker and wires in place. Cardiomegaly with a right basilar infiltrate obscuring the heart border and patchy left mid lung field infiltrate. Edema/ infiltrates new compared to August 12. Laboratory Results 09/08/17 04:02 Red Blood Count 4.86, Mean Corpuscular Volume 96.7, Mean Corpuscular Hemoglobin 31.9, Mean Corpuscular Hemoglobin Concent 33.0, Mean Platelet Volume 10.0, Neutrophils (%) (Auto) 77.0, Lymphocytes (%) (Auto) 7.4, Monocytes (%) (Auto) 14.7, Eosinophils (%) (Auto) 0.2, Basophils (%) (Auto) 0.2, Neutrophils # (Auto ) 7.84, Lymphocytes # (Auto) 0.75, Monocytes # (Auto) 1.50, Eosinophils # (Auto ) 0.02, Basophils # (Auto) 0.02 09/08/17 04:02 Test 09/08/17 04:02 09/08/17 05:32 White Blood Count 10.18 K/uL (4.8-10.8) Red Blood Count 4.86 M/uL (4.7-6.1) Hemoglobin 15.5 g/dL (14.0-18.0) Hematocrit 47.0 % (42-52) Mean Corpuscular Volume 96.7 fL (80-100) Mean Corpuscular Hemoglobin 31.9 pg (25-34) Mean Corpuscular Hemoglobin Concent 33.0 g/dl (32-36) Platelet Count 179 K/uL (130-400) Mean Platelet Volume 10.0 fL (7.4-10.4) Neutrophils (%) (Auto) 77.0 % Lymphocytes (%) (Auto) 7.4 % Monocytes (%) (Auto) 14.7 % Eosinophils (%) (Auto) 0.2 % Basophils (%) (Auto) 0.2 % Neutrophils # (Auto) 7.84 K/uL (1.4-6.5) Lymphocytes # (Auto) 0.75 K/uL (1.2-3.4) Monocytes # (Auto) 1.50 K/uL (0.11-0.59) Eosinophils # (Auto) 0.02 K/uL (0-0.5) Basophils # (Auto) 0.02 K/uL (0-0.2) RDW Standard Deviation 52.7 fL (36.4-46.3) RDW Coefficient of Variation 14.9 % (11.5-14.5) Immature Granulocyte % (Auto) 0.5 % Immature Granulocyte # (Auto) 0.05 K/uL (0.00-0.02) Prothrombin Time 54.1 SECONDS (9.0-12.0) Prothromb Time International Ratio 4.7 (0.9-1.1) Activated Partial Thromboplast Time 47.8 SECONDS (21.0-31.0) Partial Thromboplastin Ratio 1.8 Anion Gap 9.0 mmol/L (3-11) Est Creatinine Clear Calc Drug Dose 33.2 ml/min Estimated GFR () 32.9 Estimated GFR (Non- 28.4 BUN/Creatinine Ratio 29.3 (10-20) Calcium Level 9.0 mg/dl (8.5-10.1) Magnesium Level 2.3 mg/dl (1.8-2.4) Total Bilirubin 0.9 mg/dl (0.2-1) Direct Bilirubin 0.4 mg/dl (0-0.2) Aspartate Amino Transf (AST/SGOT) 54 U/L (15-37) Alanine Aminotransferase (ALT/SGPT) 47 U/L (12-78) Alkaline Phosphatase 111 U/L (45-117) Total Creatine Kinase 195 U/L (39-308) Creatine Kinase MB 1.7 ng/ml (0.5-3.6) Creatine Kinase MB Ratio 0.9 (0-3.0) Total Protein 8.1 gm/dl (6.4-8.2) Albumin 2.9 gm/dl (3.4-5.0) Troponin I 0.072 ng/ml (0-0.045) Laboratory results per my review. Medications Administered Medications (Trade) Dose Ordered Sig/Rajesh Route Start Time Stop Time Status Last Admin Dose Admin Albuterol/ Ipratropium (Duoneb) 3 ml NOW STAT INH 09/08/17 04:01 09/08/17 04:04 DC 09/08/17 04:11 3 ML Sodium Chloride 250 ml @ 999 mls/hr Q16M STAT IV 09/08/17 05:12 09/08/17 05:27 DC 09/08/17 05:28 999 MLS/HR Ceftriaxone Sodium (Rocephin Inj) 1 gm NOW STAT IV 09/08/17 05:12 09/08/17 05:14 DC 09/08/17 05:28 1 GM Azithromycin (Zithromax Tab) 500 mg NOW ONCE PO 09/08/17 05:15 09/08/17 05:16 DC 09/08/17 05:28 500 MG Ciprofloxacin HCl (Ciprofloxacin 0.3% Op Soln) 2 drops NOW STAT OPL 09/08/17 05:58 09/08/17 05:59 DC 09/08/17 06:03 2 DROPS Albuterol (Ventolin Hfa Inhaler) 2 puffs NOW ONCE INH 09/08/17 06:00 09/08/17 06:01 DC 09/08/17 06:04 2 PUFFS ECG Indication: SOB/dyspnea Rate (beats per minute): 74 Rhythm: other (ventricular paced) Findings: no acute ischemic change, other (biventricular pacer) ED Course 0356: Past medical records reviewed. The patient was evaluated in room A12B. A complete history and physical examination was performed. 0401: Duoneb 3 ml INH. 0512: Rocephin Inj 1 gm IV, NSS 250 ml @ 999 mls/hr IV. 0515: Azithromycin 500 mg PO. 0553: Upon reevaluation, the patient appeared to have improvement of his symptoms. I discussed findings with him and his . They verbalized agreement of the treatment plan. He was discharged home. 0558: Ciprofloxacin HCl 2 drops OPL. 0600: Albuterol 2 puffs INH. Medical Decision Differential diagnosis: Etiologies such as infections, reactive airway disease, pneumonia, pneumothorax , COPD, CHF, cardiac ischemia, pulmonary embolism, musculoskeletal, gastrointestinal, as well as others were entertained. This patient was evaluated and appeared to be in no significant distress. Physical examination reveals wheezing and diminished breath sounds bilaterally. Chest x-ray was performed and to my interpretation is consistent with pulmonary infiltrate with congestion. Patient does have a long-standing cardiac history and takes Bumex and Zaroxolyn. Patient's creatinine is found to be 2.1 today which is slightly worse than previous numbers. The patient's has a large bottle of thick blood-tinged sputum at the bedside. The patient will be treated with IV ceftriaxone and oral azithromycin. Patient's troponin is elevated at 0.074 however this is chronic upon review of his old records. A repeat troponin was drawn and has stayed at 0.074. I do not think this represents an acute cardiac event. EKG reveals a paced rhythm. His INR is found to be 4.7. Patient will hold his Coumadin for 2 days. Patient was given a prescription for Omnicef 300 mg twice a day for 7 days as well as azithromycin 250 mg daily for 4 more days. He was given an albuterol inhaler. Patient will be discharged as he is maintaining his oxygenation on room air. He will be advised to take an extra dose of Bumex/Zaroxolyn today for a total of 3 doses. Patient will follow-up with Dr. Reid's office in 2-3 days for reevaluation. He will return to the ER for worsening of symptoms or any medical concerns. Medication Reconcilliation Current Medication List: was personally reviewed by me Blood Pressure Screening Patient's blood pressure: Normal blood pressure Blood pressure disposition: Did not require urgent referral Impression Primary Impression: Pneumonia Additional Impressions: Elevated troponin Chronic renal insufficiency Supratherapeutic INR Pulmonary edema Scribe Attestation The scribe's documentation has been prepared under my direction and personally reviewed by me in its entirety. I confirm that the note above accurately reflects all work, treatment, procedures, and medical decision making performed by me. Departure Information Dispostion Home / Self-Care Prescriptions Cefdinir (Omnicef) 300 Mg Cap 300 MG PO Q12H for 7 Days, #14 CAP Prov: Lilia Cannon M.D. 09/08/17 Azithromycin (Azithromycin) 250 Mg Tab 1 TAB PO DAILY for 4 Days, #4 TABS Prov: Lilia Cannon M.D. 09/08/17 Referrals Noel Reid M.D. (PCP) Forms HOME CARE DOCUMENTATION FORM, IMPORTANT VISIT INFORMATION Patient Instructions My [facility] Additional Instructions Diagnosis: Pneumonia, elevated troponin, chronic renal insufficiency, elevated INR Please stop your Coumadin for 2 days. Omnicef 300 mg 2 x daily for 7 days. START TOMORROW. Azithromycin 250 mg daily for 4 more days. START TOMORROW. Albuterol 2 puffs every 4 hours as needed for wheezing or cough. Cipro 2 eye drops to left eye every 2 hours while awake for 2 days, then 2 drops every 4 hours while awake until drops run out. Follow up with Dr Reid in 2-3 days for reevaluation and repeat INR. Return to the ED for worsening of symptoms or any medical concerns. Problem Qualifiers
[2017-09-08 04:34] LABS: BUN/CREATININE RATIO 29.3 (10-20); CREATININE 2.19 mg/dl (0.60-1.40); MAGNESIUM 2.3 mg/dl (1.8-2.4); POTASSIUM 5.3 mmol/L (3.5-5.1)
[2017-09-08 04:45] LABS: CKMB/CK RATIO 0.9 (0-3.0)
[2017-09-08] MEDS ORDERED: SODIUM CHLORIDE 0.9% 250ML 250 ML IV STA (05:12)
[2017-09-08] MEDS ORDERED: CEFTRIAXONE SOD INJ 1 GM ADDVIAL IV STA (05:12)
[2017-09-08] MEDS ORDERED: AZITHROMYCIN 250 MG TAB PO ONE (05:15)
[2017-09-08 05:40] LABS: PARTIAL THROMBOPLASTIN RATIO 1.8; PROTHROMBIN TIME (PATIENT) 54.1 SECONDS (9.0-12.0)
[2017-09-08 05:44] LABS: INR 4.7 (0.9-1.1)
[2017-09-08] MEDS ORDERED: CIPROFLOXACIN HCL 0.3% OP SOLN 2.5 ML BTL OPL STA (05:58)
[2017-09-08] MEDS ORDERED: ALBUTEROL HFA 8 GM INHALER INH ONE ×2 (06:00→06:45)
[2017-09-08 06:32] VITALS: BP 106/69; PULSE 70; TEMP 37; O2SAT 95
--- NOTE | 2017-09-08 06:38 | DIAGNOSTIC IMAGING REPORT ---
CHEST 2 VIEWS ROUTINE HISTORY: 77 years-old Male cough, SOB acute cough with shortness of breath COMPARISON: Chest radiograph 08/12/2017 TECHNIQUE: PA and lateral views of the chest FINDINGS: Cardiac silhouette is moderately enlarged, unchanged. Coronary arterial stent graft noted. Left pectoral pacer/AICD is noted with leads overlying the ventricles. Atherosclerosis of the aorta. No pneumothorax. Pulmonary vascular congestion with mixed perihilar and bibasilar interstitial and alveolar opacities. Trace bilateral pleural effusions. Bones appear grossly intact. There are degenerative changes of the shoulders and spine. IMPRESSION: 1. Cardiomegaly with coronary arterial stent graft. 2. Pulmonary vascular congestion with hazy perihilar and bibasilar mixed interstitial and alveolar opacities suggest pulmonary edema with atelectasis. Superimposed pneumonia would be difficult to exclude. 3. Trace pleural effusions. The above report was generated using voice recognition software. It may contain grammatical, syntax or spelling errors. Electronically signed by: Brandt Richards M.D. 09/08/2017 6:36 AM Dictated Date/Time: 09/08/2017 6:33 AM
[2017-09-08] MEDS ORDERED: AZIT-57 PO (06:39)
[2017-09-08] MEDS ORDERED: CEFD1CAP14 PO (06:39)
== END 2017-09-08 06:44 | disposition home or self-care (01) ==
LOC: C.EDB 03:36 → C.EDA 06:44
DX: J18.9 Pneumonia, unspecified organism (principal); N28.9 Disorder of kidney and ureter, unspecified; J81.1 Chronic pulmonary edema; R79.89 Other specified abnormal findings of blood chemistry; I10 Essential (primary) hypertension; E11.9 Type 2 diabetes mellitus without complications; I51.9 Heart disease, unspecified; E07.9 Disorder of thyroid, unspecified; M19.90 Unspecified osteoarthritis, unspecified site; Z95.0 Presence of cardiac pacemaker; Z98.61 Coronary angioplasty status; Z79.01 Long term (current) use of anticoagulants; Z79.899 Other long term (current) drug therapy; Z83.3 Family history of diabetes mellitus; Z80.9 Family history of malignant neoplasm, unspecified; Z82.49 Family history of ischemic heart disease and other diseases of the circulatory system; Z84.1 Family history of disorders of kidney and ureter

== ENCOUNTER → 2017-09-11 | Outpatient (CLI) | payer OTHER ==
[~2017-09-11] MED LIST changes: +AZIT-57 PO; +CARV6.252 PO; +CEFD1CAP14 PO; -FLUT0.15 NAE; +MECL1TAB42 PO; +METO2.5T PO; -PRDXLUD PO
[2017-09-11 11:05] LABS: BLOOD UREA NITROGEN 64 mg/dl (7-18); BUN/CREATININE RATIO 28.4 (10-20); CALCIUM 8.7 mg/dl (8.5-10.1); CARBON DIOXIDE 31 mmol/L (21-32); CHLORIDE 94 mmol/L (98-107); CREATININE 2.25 mg/dl (0.60-1.40); GLUCOSE 290 mg/dl (70-99); PHOSPHORUS 2.5 mg/dl (2.5-4.9); POTASSIUM 3.7 mmol/L (3.5-5.1); SODIUM 134 mmol/L (136-145)
== END | disposition home or self-care (01) ==
LOC: C.LAB1850 09:56
PROVIDERS: ATTEND Internal Medicine Nephrology
DX: N18.3 Chronic kidney disease, stage 3 (moderate) (principal)

== ENCOUNTER → 2017-10-13 | Outpatient (CLI) | payer OTHER ==
[~2017-10-13] MED LIST changes: -CEFD1CAP14 PO
[2017-10-13 14:37] LABS: HEMATOCRIT 46.3 % (42-52); MEAN CELL VOLUME 95.9 fL (80-100); MEAN CORPUSCULAR HEMOGLOBIN 31.7 pg (25-34); MEAN PLATELET VOLUME 10.5 fL (7.4-10.4); PLATELET COUNT 118 K/uL (130-400); RED BLOOD COUNT 4.83 M/uL (4.7-6.1); WHITE BLOOD COUNT 7.86 K/uL (4.8-10.8)
[2017-10-13 15:00] LABS: BLOOD UREA NITROGEN 43 mg/dl (7-18); BUN/CREATININE RATIO 25.5 (10-20); CALCIUM 8.9 mg/dl (8.5-10.1); CARBON DIOXIDE 27 mmol/L (21-32); CHLORIDE 104 mmol/L (98-107); GLUCOSE 139 mg/dl (70-99); POTASSIUM 4.1 mmol/L (3.5-5.1); SODIUM 136 mmol/L (136-145)
[2017-10-13 15:05] LABS: ALKALINE PHOSPHATASE 103 U/L (45-117); ALT/SGPT 26 U/L (12-78); AST/SGOT 23 U/L (15-37); PHOSPHORUS 2.8 mg/dl (2.5-4.9); PROSTATE SPECIFIC ANTIGEN 0.684 ng/ml (0.000-4.000)
== END | disposition home or self-care (01) ==
LOC: C.LABBC 13:31
PROVIDERS: ATTEND Urology
DX: Z01.818 Encounter for other preprocedural examination (principal); N40.1 Benign prostatic hyperplasia with lower urinary tract symptoms; N18.4 Chronic kidney disease, stage 4 (severe)

== ENCOUNTER 2017-10-28 16:43 | Observation (INO) | payer OTHER ==
[~2017-10-28] VITALS: Ht 172.7 cm; Wt 92.9 kg
[2017-10-28] MEDS ORDERED: NITROGLYCERIN 0.4 MG SL PER TAB CHARGE SL PRN (17:00)
[2017-10-28] MEDS ORDERED: ASPIRIN 81 MG CHEW PO STA (17:00)
--- NOTE | 2017-10-28 17:06 | EMERGENCY ROOM VISIT NOTE ---
History Report prepared by Stephanie: Nena Sanabria Under the Supervision of: Dr. Guy Potter M.D. First contact with patient: 16:50 Chief Complaint: RESPIRATORY PROBLEMS Stated Complaint: TROUBLE BREATHING History of Present Illness The patient is a 77 year old male who presents to the Emergency Room with complaints of constant chest pain for the past week. The patient has been experiencing pressure in the center of his chest that it worsened with exertion. He rates his current pain as a 6/10 in severity. He also states that his abdomen feels full. He had two stents placed in 2002 and states that his current symptoms feel different from when he has these stents placed. The patient has an appointment tomorrow with [facility] cardiology to evaluate his pacemaker. He stopped taking his Coumadin 3 days ago in preparation for this appointment. He did not take any aspirin today. The patient does not speak Amharic and the history was obtained with the help of family members as interpreters. Source of History: patient, family, spouse/significant other Onset: 1 week ago Position: chest Symptom Intensity: 6/10 Quality: pressure Timing: constant Modifying Factors (Worsening): exertion Note: Pt states that his abdomen feels full. Review of Systems See HPI for pertinent positives & negatives. A total of 10 systems reviewed and were otherwise negative. 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 (14) Nephrolithiasis (15) Thyroid dysfunction (16) Two stents Family History Diabetes mellitus FH: cancer Heart disease Hypertension Kidney disease Kidney stones Social History Smoking Status: Never Smoker Alcohol Use: none Drug Use: none Marital Status: Housing Status: lives with family Occupation Status: retired Current/Historical Medications Scheduled Allopurinol (Zyloprim), 100 MG PO BID Amiodarone Hcl (Cordarone), 200 MG PO DAILY Bumetanide (Bumex), 2 MG PO BID Calcitriol (Calcitriol), 0.5 MCG PO 3XWK Carvedilol (Coreg), 6.25 MG PO BIDM Fluocinonide Emulsified Base (Fluocinonide Emulsified), 1 APPLN TOP BID Furosemide (Lasix), 40 MG PO DAILY Gabapentin (Neurontin), 100 MG PO TID Insulin Aspart (Novolog Flexpen), 20 UNITS SC TIDM Insulin Glargine (Lantus Solostar), 35 UNITS SC HS Isosorbide Mononitrate Ext Rel (Imdur Ext Rel), 60 MG PO QAM Levothyroxine Sodium (Levothyroxine Sodium), 75 MCG PO DAILY Metolazone (Zaroxolyn), 2.5 MG PO 2XWK Omeprazole (Prilosec), 20 MG PO BID Potassium Ext Rel (Klor-Con), 40 MEQ PO BID Simvastatin (Zocor), 40 MG PO HS Spironolactone (Aldactone), 25 MG PO QAM Warfarin Sod (Jantoven), 2 MG PO UD Warfarin Sodium (Coumadin), 5 MG PO UD Scheduled PRN Diclofenac Sodium (Topical) (Voltaren 1% Top Gel), 1 APPLN TOP QID PRN for Pain Ipratropium-Albuterol (Combivent Respimat), 1 PUFFS INH Q6 PRN for SOB/Wheezing Meclizine Hcl (Meclizine Hcl), 25 MG PO TID PRN for Nausea Nitroglycerin (Nitrostat), 0.4 MG UT UD PRN for Chest Pain Tramadol (Ultram), 50 MG PO Q8H PRN for Pain Trazodone Hcl (Trazodone), 25-50 MG PO HS PRN for Sleep Zolpidem Tartrate (Ambien), 1.25-2.5 MG PO HS PRN for Insomnia [Compound Medication], 1 APPLN UNKNOWN TID PRN for Pain Allergies Coded Allergies: No Known Allergies (Verified , 09/08/17) Physical Exam Vital Signs Date Time Temp Pulse Resp B/P (MAP) Pulse Ox O2 Delivery O2 Flow Rate FiO2 10/28/17 21:00 70 20 103/89 95 Nasal Cannula 2.0 10/28/17 20:00 71 18 110/74 94 Nasal Cannula 2.0 10/28/17 19:55 88 Room Air 10/28/17 19:02 74 22 110/78 97 Nasal Cannula 3.0 10/28/17 18:15 73 19 119/70 95 Nasal Cannula 3.0 10/28/17 18:02 72 10/28/17 17:57 95 Nasal Cannula 4.0 10/28/17 17:18 92 Nasal Cannula 3.0 10/28/17 17:18 92 Nasal Cannula 3.0 10/28/17 17:14 75 20 96/61 92 Nasal Cannula 3.0 10/28/17 16:45 36.3 89 17 98/49 92 Room Air Physical Exam GENERAL: Patient is a healthy-appearing well-nourished 77 year old male. HEAD: Normocephalic atraumatic EYES: Ocular movements intact pupils equal and react to light OROPHARYNX mucous membranes are moist no exudates present no erythema or edema present NECK: Supple no nuchal rigidity CHEST: Good equal expansion LUNGS: Clear and equal to auscultation CARDIAC: Normal S1 and S2 ABDOMEN: Soft nontender no guarding BACK: No CVA tenderness EXTREMITIES: No pain upon palpation normal muscle strength in all groups no clubbing cyanosis or edema SKIN: Multiple bruises to abdomen and chest. NEURO: Patient is following commands and answering questions appropriately. Alert and oriented x3 Cranial Nerves 2-12 grossly intact Medical Decision & Procedures ER Provider Diagnostic Interpretation: Radiology results as stated below per my review and radiologist interpretation: CHEST ONE VIEW PORTABLE HISTORY: 77 years-old Male CHEST PAIN acute atypical chest pain COMPARISON: Chest radiograph 7 09/08/2017 TECHNIQUE: Portable AP view of the chest FINDINGS: Cardiac silhouette is moderately enlarged, unchanged. Coronary arterial stent graft is noted. Atherosclerosis of the aorta. Left subclavian pacer/AICD appears unchanged. No pneumothorax or pleural effusion. Mild pulmonary vascular congestion with hazy subsegmental bibasilar opacities, improved from prior exam. The bones of the chest appear grossly intact. IMPRESSION: 1. Cardiomegaly and mild pulmonary vascular congestion without overt pulmonary edema. 2. Hazy subsegmental bibasilar opacities suggest atelectasis. The above report was generated using voice recognition software. It may contain grammatical, syntax or spelling errors. Electronically signed by: Brandt Richards M.D. 10/28/2017 5:49 PM Dictated Date/Time: 10/28/2017 5:47 PM Laboratory Results 10/28/17 17:20 Red Blood Count 4.70, Mean Corpuscular Volume 96.6, Mean Corpuscular Hemoglobin 31.7, Mean Corpuscular Hemoglobin Concent 32.8, Mean Platelet Volume 9.8, Neutrophils (%) (Auto) 71.0, Lymphocytes (%) (Auto) 13.7, Monocytes (%) (Auto) 12.1, Eosinophils (%) (Auto) 2.7, Basophils (%) (Auto) 0.2, Neutrophils # (Auto ) 4.47, Lymphocytes # (Auto) 0.86, Monocytes # (Auto) 0.76, Eosinophils # (Auto ) 0.17, Basophils # (Auto) 0.01 10/28/17 17:20 Test 10/28/17 17:20 10/28/17 17:30 White Blood Count 6.29 K/uL (4.8-10.8) Red Blood Count 4.70 M/uL (4.7-6.1) Hemoglobin 14.9 g/dL (14.0-18.0) Hematocrit 45.4 % (42-52) Mean Corpuscular Volume 96.6 fL (80-100) Mean Corpuscular Hemoglobin 31.7 pg (25-34) Mean Corpuscular Hemoglobin Concent 32.8 g/dl (32-36) Platelet Count 151 K/uL (130-400) Mean Platelet Volume 9.8 fL (7.4-10.4) Neutrophils (%) (Auto) 71.0 % Lymphocytes (%) (Auto) 13.7 % Monocytes (%) (Auto) 12.1 % Eosinophils (%) (Auto) 2.7 % Basophils (%) (Auto) 0.2 % Neutrophils # (Auto) 4.47 K/uL (1.4-6.5) Lymphocytes # (Auto) 0.86 K/uL (1.2-3.4) Monocytes # (Auto) 0.76 K/uL (0.11-0.59) Eosinophils # (Auto) 0.17 K/uL (0-0.5) Basophils # (Auto) 0.01 K/uL (0-0.2) RDW Standard Deviation 56.2 fL (36.4-46.3) RDW Coefficient of Variation 15.9 % (11.5-14.5) Immature Granulocyte % (Auto) 0.3 % Immature Granulocyte # (Auto) 0.02 K/uL (0.00-0.02) Prothrombin Time 19.0 SECONDS (9.0-12.0) Prothromb Time International Ratio 1.8 (0.9-1.1) Est Creatinine Clear Calc Drug Dose 29.6 ml/min Estimated GFR () 29.3 Estimated GFR (Non- 25.3 BUN/Creatinine Ratio 26.4 (10-20) Calcium Level 9.1 mg/dl (8.5-10.1) Total Bilirubin 1.5 mg/dl (0.2-1) Direct Bilirubin 0.4 mg/dl (0-0.2) Aspartate Amino Transf (AST/SGOT) 28 U/L (15-37) Alanine Aminotransferase (ALT/SGPT) 31 U/L (12-78) Alkaline Phosphatase 93 U/L (45-117) Total Creatine Kinase 160 U/L (39-308) Creatine Kinase MB 2.8 ng/ml (0.5-3.6) Creatine Kinase MB Ratio 1.7 (0-3.0) Troponin I 0.062 ng/ml (0-0.045) Pro-B-Type Natriuretic Peptide 3558 pg/ml (0-900) Total Protein 7.5 gm/dl (6.4-8.2) Albumin 3.2 gm/dl (3.4-5.0) Lipase 277 U/L (73-393) Bedside Hemoglobin 14.6 g/dl (14.0-18.0) Bedside Hematocrit 43 % (42-52) Bedside Sodium 137 mEq/L (135-144) Bedside Potassium 3.9 mEq/L (3.3-5.0) Bedside Chloride 93 mEq/L (101-112) Bedside Total CO2 31 mEq/l (24-31) Anion Gap 18.0 mmol/L (16-25) Bedside Blood Urea Nitrogen 54 mg/dl (7-18) Bedside Creatinine 2.4 mg/dl (0.6-1.3) Bedside Glucose (other) 180 mg/dl (70-99) Bedside Ionized Calcium (Kristopher) 1.09 mmol/l (1.12-1.32) Labs reviewed by ED physician. Medications Administered Medications (Trade) Dose Ordered Sig/Rajesh Route Start Time Stop Time Status Last Admin Dose Admin Aspirin (Aspirin Chew) 324 mg NOW STAT PO 10/28/17 17:00 10/28/17 17:04 DC 10/28/17 17:37 324 MG Nitroglycerin (Nitrostat Tab) 0.4 mg Q5M PRN SL 10/28/17 17:00 11/27/17 16:59 10/28/17 18:21 0.4 MG Sodium Chloride 500 ml @ 999 mls/hr Q31M STAT IV 10/28/17 18:03 10/28/17 18:33 DC 10/28/17 18:21 999 MLS/HR Nitroglycerin (Nitroglycerin 2% Oint) 1 inch NOW STAT EXT 10/28/17 18:37 10/28/17 18:39 DC 10/28/17 19:00 1 INCH ECG Indication: chest pain Rate (beats per minute): 73 Rhythm: other (paced rhythm) Findings: no acute ischemic change, no ectopy ED Course 1650: Past medical records reviewed. The patient was evaluated in room A12A. A complete history and physical examination was performed. 1700: Nitroglycerin 0.4 mg SL - PRN, Aspirin 324 mg PO 1803: NSS 500 ml @ 999 mls/hr IV 1830: Upon reevaluation the patient is doing well. His chest pain improved with the nitro. 1837: Nitroglycerin 1 inch EXT 1859: I reassessed the patient at this time. He is feeling better and resting comfortably. I discussed the results and treatment plan with the patient and his family. I answered all pertaining questions that they had. They expressed understanding and verbalized agreement. 1942: Dr. Washington the hospitalist with the [facility] accepted the patient for further management. Medical Decision Differential diagnosis: Etiologies such as cardiac ischemia, aortic dissection, pulmonary embolism, pneumonia, pneumothorax, musculoskeletal, infections, pericarditis, myocarditis , esophageal rupture, gastrointestinal, as well as others were entertained. This is a 77-year-old male who presents emergency department complaining of chest pain. The chest pain was relieved by nitroglycerin in the emergency department. In addition the patient was also given aspirin. The patient also has an elevation in his troponin. He was given nitro paste in the emergency department. I did discuss the case with the hospitalist service who agreed to admit the patient. Medication Reconcilliation Current Medication List: was personally reviewed by me Blood Pressure Screening Patient's blood pressure: Normal blood pressure Impression Primary Impression: Precordial chest pain Scribe Attestation The scribe's documentation has been prepared under my direction and personally reviewed by me in its entirety. I confirm that the note above accurately reflects all work, treatment, procedures, and medical decision making performed by me. Departure Information Dispostion Being Evaluated By Hospitalist Referrals Noel Reid M.D. (PCP) Patient Instructions My [facility]
[2017-10-28 17:41] LABS: BASO % 0.2 %; BASO ABS # 0.01 K/uL (0-0.2); EOS % 2.7 %; EOS ABS # 0.17 K/uL (0-0.5); HEMATOCRIT 45.4 % (42-52); HEMOGLOBIN 14.9 g/dL (14.0-18.0); IG# 0.02 K/uL (0.00-0.02); LYMPH % 13.7 %; LYMPH ABS # 0.86 K/uL (1.2-3.4); MEAN CELL VOLUME 96.6 fL (80-100); MEAN CORPUSCULAR HEMOGLOBIN 31.7 pg (25-34); MEAN CORPUSCULAR HGB CONC 32.8 g/dl (32-36); MEAN PLATELET VOLUME 9.8 fL (7.4-10.4); MONO % 12.1 %; MONO ABS # 0.76 K/uL (0.11-0.59); NEUT ABS # 4.47 K/uL (1.4-6.5); PLATELET COUNT 151 K/uL (130-400); RED CELL DISTRIBUTION WIDTH CV 15.9 % (11.5-14.5); RED CELL DISTRIBUTION WIDTH SD 56.2 fL (36.4-46.3); WHITE BLOOD COUNT 6.29 K/uL (4.8-10.8)
--- NOTE | 2017-10-28 17:50 | DIAGNOSTIC IMAGING REPORT ---
CHEST ONE VIEW PORTABLE HISTORY: 77 years-old Male CHEST PAIN acute atypical chest pain COMPARISON: Chest radiograph 7 09/08/2017 TECHNIQUE: Portable AP view of the chest FINDINGS: Cardiac silhouette is moderately enlarged, unchanged. Coronary arterial stent graft is noted. Atherosclerosis of the aorta. Left subclavian pacer/AICD appears unchanged. No pneumothorax or pleural effusion. Mild pulmonary vascular congestion with hazy subsegmental bibasilar opacities, improved from prior exam. The bones of the chest appear grossly intact. IMPRESSION: 1. Cardiomegaly and mild pulmonary vascular congestion without overt pulmonary edema. 2. Hazy subsegmental bibasilar opacities suggest atelectasis. The above report was generated using voice recognition software. It may contain grammatical, syntax or spelling errors. Electronically signed by: Brandt Richards M.D. 10/28/2017 5:49 PM Dictated Date/Time: 10/28/2017 5:47 PM
[2017-10-28 17:58] LABS: INR 1.8 (0.9-1.1)
[2017-10-28 18:01] LABS: ALBUMIN 3.2 gm/dl (3.4-5.0); CALCIUM 9.1 mg/dl (8.5-10.1); CREATININE 2.41 mg/dl (0.60-1.40); POTASSIUM 3.9 mmol/L (3.5-5.1)
[2017-10-28] MEDS ORDERED: SODIUM CHLORIDE 0.9% 500ML 500 ML IV STA (18:03)
[2017-10-28 18:12] LABS: ISTAT CREATININE 2.4 mg/dl (0.6-1.3); ISTAT IONIZED CALCIUM 1.09 mmol/l (1.12-1.32); ISTAT POTASSIUM 3.9 mEq/L (3.3-5.0)
[2017-10-28] MEDS ORDERED: FLUO-245 TOP (18:15)
[2017-10-28] MEDS ORDERED: CALC0.5C PO (18:15)
[2017-10-28] MEDS ORDERED: DICL1GEL12 TOP (18:15)
[2017-10-28] MEDS ORDERED: POTA20TA16 PO (18:15)
[2017-10-28] MEDS ORDERED: WARF2TAB8 PO (18:15)
[2017-10-28] MEDS ORDERED: IPRA1AER2 INH (18:15)
[2017-10-28] MEDS ORDERED: ZOLP5TAB PO (18:15)
[2017-10-28] MEDS ORDERED: FRS/40 PO (18:15)
[2017-10-28] MEDS ORDERED: INSDGIPEN SC (18:15)
[2017-10-28] MEDS ORDERED: OMEP20CA9 PO (18:15)
[2017-10-28] MEDS ORDERED: COMPOUND MEDICATION (18:17)
[2017-10-28] MEDS ORDERED: NVLGI/PEN SC (18:18)
[2017-10-28 18:22] LABS: CKMB 2.8 ng/ml (0.5-3.6); TOTAL PROTEIN 7.5 gm/dl (6.4-8.2)
[2017-10-28] MEDS ORDERED: NITROGLYCERIN OINT 2% 1GM PACKET EXT STA (18:37)
[2017-10-28] MEDS ORDERED: NITROGLYCERIN OINT 2% 1GM PACKET ONE (18:54)
[2017-10-28] MEDS ORDERED: FUROSEMIDE 40 MG/4 ML VIAL IV STA (23:06)
[2017-10-29] VITALS (11 sets, daily range): BP systolic 94–106; BP diastolic 56–69; PULSE 66–78; TEMP 36.4–36.8; O2SAT 91–96; BMI 31.1
[2017-10-29] MEDS ORDERED: POLYETHYLENE (MIRALAX) 17 GM PACK PO PRN (00:45)
[2017-10-29] MEDS ORDERED: MoRPHine SULFATE 2 MG/ML CARP IV PRN (00:45)
[2017-10-29] MEDS ORDERED: MAGNESIUM HYDROXIDE SUSP 30 ML UDC PO PRN (00:45)
[2017-10-29] MEDS ORDERED: ALUMINUM/MAGNESIUM/SIMETH (MAALOX MAX) 30 ML UDC PO PRN (00:45)
[2017-10-29] MEDS ORDERED: ACETAMINOPHEN 325 MG TAB PO PRN (00:45)
[2017-10-29] MEDS ORDERED: NITROGLYCERIN 0.4 MG SL PER TAB CHARGE SL PRN (00:45)
[2017-10-29] MEDS ORDERED: ONDANSETRON INJ 2 MG/ML 2 ML VIAL IV PRN (00:45)
[2017-10-29] MEDS ORDERED: WARFARIN SOD 2 MG TAB PO SCH (02:30)
[2017-10-29] MEDS ORDERED: TRAMADOL HCL 50 MG TAB PO PRN (02:30)
[2017-10-29] MEDS ORDERED: ZOLPIDEM TARTRATE 5 MG TAB PO PRN (02:30)
[2017-10-29] MEDS ORDERED: NITROGLYCERIN 0.4 MG SL PER TAB CHARGE UT PRN (02:30)
[2017-10-29] MEDS ORDERED: MECLIZINE HCL 12.5 MG TAB PO PRN (02:30)
[2017-10-29] MEDS ORDERED: WARFARIN SOD 5 MG TAB PO SCH (02:30)
[2017-10-29] MEDS ORDERED: TRAZODONE HCL 50 MG TAB PO PRN (02:30)
[2017-10-29] MEDS ORDERED: IPRATROPIUM BROMIDE/ALBUTEROL respimat INH INH PRN (02:30)
--- NOTE | 2017-10-29 02:31 | History and Physical ---
History & Physical Date & Time of Service: Oct 29, 2017 at 02:16 Chief Complaint: Chf Exacerbation Primary Care Physician: Noel Reid M.D. History of Present Illness Patient is a 77-year-old male with a past medical history of CAD s/p LAD stent placement x2, chronic systolic CHF with EF of 20-25% on most recent ECHO, biventricular ICD on 02/06/17, chronic a.fib, T2DM, dyslipidemia, CKD stage III , HTN, and hypothyroidism, who presented to the ED with a 2 week history of substernal chest pain and shortness of breath. The patient states the chest pain was sharp, 7/10, and worst in the morning when waking up. The patient also had left sided chest pain that was 10/10 and sharp as well, with some overlying bruising over the left side of the chest but denies any trauma to the area. The patient was scheduled for a pacemaker evaluation tomorrow with [facility] and has not taken his Coumadin for the last 3 days as instructed. The patient was also recently treated for pneumonia within the last month. The patient was given a dose of nitroglycerin in the emergency department and his chest discomfort improved. His Troponin was elevated at 0.062 but this is approximately his baseline over his last few admissions. Most recent ECHO on revealed an EF of 20-25%. The patient was found to be hypoxic in the ED and was placed on 4L of oxygen, and at this time is not on Oxygen at home. He was given a dose of Lasix in the emergency department but had not improvement of his respiratory status. The patient is currently on a very complicated medication regimen including multiple diuretics and antiarrhythmics. Patient denies any fever, chills, sweats, lightheadedness, dizziness, vision changes, palpitations, edema, abdominal pain, nausea, vomiting, diarrhea, urinary symptoms, melena, numbness/tingling, weakness, muscle/joint pain, anxiety/ depression, active bleeding, or new skin discoloration/changes. Past Medical/Surgical History Medical Problems: (1) Arthritis Status: Chronic (2) Diabetes mellitus Status: Chronic (3) Gastroesophageal reflux disease Status: Chronic (4) Heart disease Status: Chronic (5) Hernia of abdominal wall Status: Resolved (6) History of - hypertension Status: Chronic (7) Implantation of cardiac pacemaker Status: Resolved (8) Kidney stone Status: Resolved (9) Nephrolithiasis Status: Chronic (10) Thyroid dysfunction Status: Chronic (11) Two stents Status: Resolved Family History Diabetes mellitus FH: cancer Heart disease Hypertension Kidney disease Kidney stones Social History Smoking Status: Never Smoker Drug Use: none Marital Status: Housing status: lives with family Occupational Status: retired Immunizations History of Influenza Vaccine: No Influenza Vaccine Date: Jul 15, 2010 History of Tetanus Vaccine?: Yes Tetanus Immunization Date: Jul 15, 2010 History of Pneumococcal: Yes Pneumococcal Date: March 03, 2009 History of Hepatitis B Vaccine: No Multi-Drug Resistant Organisms History of MDRO: No Allergies Coded Allergies: No Known Allergies (Verified , 09/08/17) Home Medications Scheduled Allopurinol (Zyloprim), 100 MG PO BID Amiodarone Hcl (Cordarone), 200 MG PO DAILY Bumetanide (Bumex), 2 MG PO BID Calcitriol (Calcitriol), 0.5 MCG PO 3XWK Carvedilol (Coreg), 6.25 MG PO BIDM Fluocinonide Emulsified Base (Fluocinonide Emulsified), 1 APPLN TOP BID Furosemide (Lasix), 40 MG PO DAILY Gabapentin (Neurontin), 100 MG PO TID Insulin Aspart (Novolog Flexpen), 20 UNITS SC TIDM Insulin Glargine (Lantus Solostar), 35 UNITS SC HS Isosorbide Mononitrate Ext Rel (Imdur Ext Rel), 60 MG PO QAM Levothyroxine Sodium (Levothyroxine Sodium), 75 MCG PO DAILY Metolazone (Zaroxolyn), 2.5 MG PO 2XWK Omeprazole (Prilosec), 20 MG PO BID Potassium Ext Rel (Klor-Con), 40 MEQ PO BID Simvastatin (Zocor), 40 MG PO HS Spironolactone (Aldactone), 25 MG PO QAM Warfarin Sod (Jantoven), 2 MG PO UD Warfarin Sodium (Coumadin), 5 MG PO UD Scheduled PRN Diclofenac Sodium (Topical) (Voltaren 1% Top Gel), 1 APPLN TOP QID PRN for Pain Ipratropium-Albuterol (Combivent Respimat), 1 PUFFS INH Q6 PRN for SOB/Wheezing Meclizine Hcl (Meclizine Hcl), 25 MG PO TID PRN for Nausea Nitroglycerin (Nitrostat), 0.4 MG UT UD PRN for Chest Pain Tramadol (Ultram), 50 MG PO Q8H PRN for Pain Trazodone Hcl (Trazodone), 25-50 MG PO HS PRN for Sleep Zolpidem Tartrate (Ambien), 1.25-2.5 MG PO HS PRN for Insomnia [Compound Medication], 1 APPLN UNKNOWN TID PRN for Pain Review of Systems Constitutional: + weakness, + fatigue, No fever, No chills Respiratory: + cough, + wheezing, + shortness of breath, + dyspnea on exertion , No sputum Cardiovascular: + chest pain, + orthopnea, + edema, No palpitations Abdomen: No pain, No nausea, No vomiting, No diarrhea, No constipation Neurologic: No numbness/tingling Endocrine: + fatigue Physical Exam Vital Signs Date Time Temp Pulse Resp B/P (MAP) Pulse Ox O2 Delivery O2 Flow Rate FiO2 10/29/17 01:11 36.3 70 25 117/73 92 10/29/17 00:54 70 117/73 92 Room Air 10/28/17 23:16 78 25 94/64 94 Nasal Cannula 2.0 10/28/17 22:02 70 10/28/17 22:01 70 18 93/57 98 Room Air 10/28/17 21:00 70 20 103/89 95 Nasal Cannula 2.0 10/28/17 20:00 71 18 110/74 94 Nasal Cannula 2.0 10/28/17 19:55 88 Room Air 10/28/17 19:02 74 22 110/78 97 Nasal Cannula 3.0 10/28/17 18:15 73 19 119/70 95 Nasal Cannula 3.0 10/28/17 18:02 72 10/28/17 17:57 95 Nasal Cannula 4.0 10/28/17 17:18 92 Nasal Cannula 3.0 10/28/17 17:18 92 Nasal Cannula 3.0 10/28/17 17:14 75 20 96/61 92 Nasal Cannula 3.0 10/28/17 16:45 36.3 89 17 98/49 92 Room Air General Appearance: WD/WN, + mild distress Head: normocephalic, atraumatic Eyes: normal inspection, sclerae normal Neck: supple, trachea midline, + JVD Respiratory/Chest: + respiratory distress, + decreased breath sounds, + crackles (bilaterally at the bases) Cardiovascular: no murmur, + irregularly irregular Abdomen/GI: normal bowel sounds, non tender, soft Extremities/Musculoskelatal: + pedal edema, + swelling Neurologic/Psych: alert, normal mood/affect, oriented x 3 Diagnostics Laboratory Results Results Past 24 Hours Test 10/28/17 17:20 10/28/17 17:30 10/28/17 23:51 Range/Units White Blood Count 6.29 4.8-10.8 K/uL Red Blood Count 4.70 4.7-6.1 M/uL Hemoglobin 14.9 14.0-18.0 g/dL Hematocrit 45.4 42-52 % Mean Corpuscular Volume 96.6 80-100 fL Mean Corpuscular Hemoglobin 31.7 25-34 pg Mean Corpuscular Hemoglobin Concent 32.8 32-36 g/dl Platelet Count 151 130-400 K/uL Mean Platelet Volume 9.8 7.4-10.4 fL Neutrophils (%) (Auto) 71.0 % Lymphocytes (%) (Auto) 13.7 % Monocytes (%) (Auto) 12.1 % Eosinophils (%) (Auto) 2.7 % Basophils (%) (Auto) 0.2 % Neutrophils # (Auto) 4.47 1.4-6.5 K/uL Lymphocytes # (Auto) 0.86 1.2-3.4 K/uL Monocytes # (Auto) 0.76 0.11-0.59 K/uL Eosinophils # (Auto) 0.17 0-0.5 K/uL Basophils # (Auto) 0.01 0-0.2 K/uL RDW Standard Deviation 56.2 36.4-46.3 fL RDW Coefficient of Variation 15.9 11.5-14.5 % Immature Granulocyte % (Auto) 0.3 % Immature Granulocyte # (Auto) 0.02 0.00-0.02 K/uL Prothrombin Time 19.0 9.0-12.0 SECONDS Prothromb Time International Ratio 1.8 0.9-1.1 Sodium Level 134 136-145 mmol/L Potassium Level 3.9 3.5-5.1 mmol/L Chloride Level 97 98-107 mmol/L Carbon Dioxide Level 30 21-32 mmol/L Anion Gap 7.0 18.0 16-25 mmol/L Blood Urea Nitrogen 64 7-18 mg/dl Creatinine 2.41 0.60-1.40 mg/dl Est Creatinine Clear Calc Drug Dose 29.6 ml/min Estimated GFR () 29.3 Estimated GFR (Non- 25.3 BUN/Creatinine Ratio 26.4 10-20 Random Glucose 169 70-99 mg/dl Calcium Level 9.1 8.5-10.1 mg/dl Total Bilirubin 1.5 0.2-1 mg/dl Direct Bilirubin 0.4 0-0.2 mg/dl Aspartate Amino Transf (AST/SGOT) 28 15-37 U/L Alanine Aminotransferase (ALT/SGPT) 31 12-78 U/L Alkaline Phosphatase 93 45-117 U/L Total Creatine Kinase 160 39-308 U/L Creatine Kinase MB 2.8 0.5-3.6 ng/ml Creatine Kinase MB Ratio 1.7 0-3.0 Troponin I 0.062 0.059 0-0.045 ng/ml Pro-B-Type Natriuretic Peptide 3558 0-900 pg/ml Total Protein 7.5 6.4-8.2 gm/dl Albumin 3.2 3.4-5.0 gm/dl Lipase 277 73-393 U/L Bedside Hemoglobin 14.6 14.0-18.0 g/dl Bedside Hematocrit 43 42-52 % Bedside Sodium 137 135-144 mEq/L Bedside Potassium 3.9 3.3-5.0 mEq/L Bedside Chloride 93 101-112 mEq/L Bedside Total CO2 31 24-31 mEq/l Bedside Blood Urea Nitrogen 54 7-18 mg/dl Bedside Creatinine 2.4 0.6-1.3 mg/dl Bedside Glucose (other) 180 70-99 mg/dl Bedside Ionized Calcium (Kristopher) 1.09 1.12-1.32 mmol/l Impression Assessment and Plan Patient is a pleasant 76 y/o male, with PMHx of CAD s/p LAD stent placement x2, chronic systolic CHF, biventricular ICD on 02/06/17, Chronic Afib, T2DM, dyslipidemia, CKD stage III, HTN, and hypothyroidism who presented to the ED with a 2 week history of SOB and Chest Pain Acute Hypoxic Respiratory Failure secondary to acute on chronic systolic CHF Exacerbation - Admit to telemetry - Initial Troponin 0.062, 0.059 at 6 hours --> Continue to trend - EKG: Ventricular paced rhythm - Cardiology consultation --> Plan to have pacemaker assessment tomorrow - Continue home Bumex 2mg BID, Aldactone 25mg daily, Lasix 40mg Daily --> Received additional Lasix 40mg IV in the ED - Supplemental oxygen as needed to maintain SpO2 > 90% - Monitor Daily I/Os - Follow daily BMP - Continue home KlorCon 40mEq PO BID CHF, CAD, Chronic Afib: - Cardiology Consulted - Continue Bumex, Aldactone, and Lasix as mentioned above - Continue Amiodarone 200 mg daily, Coreg 6.25 mg BID, Imdur 60 mg QAM - Current INR of 1.8 --> Continue to hold T2DM: - Continue Lantus 35 units qHS - BSG ACHS and sliding insulin scale CKD stage III - Creatinine 2.41 --> Baseline of approximately 2 - Follows with Dr. Lockwood Hypothyroidism - Continue home Synthroid 75 mcg daily DVT prophylaxis - INR 1.8 --> Holding Coumadin for potential pacemaker procedure Code Status - Full Resuscitation Resident Physician Supervision Note: I was present with Dr. Betancourt during the history and exam. I discussed the case with the resident and agree with the findings and plan as documented in the note. Any exceptions or clarifications are listed here: 77 y/o M Hx CAD - LAD stent, systolic CHF - EF of 20-25% - biventricular ICD on 02/06/17, chronic AF, DM, CKD III - presenting with progressive SOB - hypoxic on arrival to the ER. Also states he has had some blood-streaked sputum, although this is apparently not unusual for him in the AM. OE AAO x 3 S1,2 faint irr + murmur BL crackles NT, ND No CCE P: Pt is assigned to telemetry for CHF exacerbation - trop is currently elevated although this appears to be chonic - we will r/o an acute event We did attempt diuresis when he initially presented, however, he continued to desaturate 1 hr after administration of IV Lasix We will admit for additional diuresis Of note - his INR is therapeutic, although he has not taken Coumadin in 3 days in prep for a pacemaker revision Above discussed with pt, family and resident Documented By: Lester Kedem Level of Care Telemetry VTE Prophylaxis VTE Risk Assessment Done? Y/N: Yes Risk Level: High Resident Tracking Resident Involvement: Resident Care Provided Care Provided: Adult Hospital Medicine
[2017-10-29] MEDS ORDERED: GLUCAGON FOR INJ 1 MG VIAL SQ PRN (04:15)
[2017-10-29] MEDS ORDERED: DEXTROSE 50% 50 ML SYR IV PRN (04:15)
[2017-10-29] MEDS ORDERED: GLUCOSE 10 TABS/TUBE PO PRN (04:15)
[2017-10-29] MEDS ORDERED: GLUCOSE 40% GEL 15 GM TUBE PO PRN (04:15)
[2017-10-29] MEDS ORDERED: LACTATED RINGER'S 1000ML IV SCH (06:00)
[2017-10-29] MEDS ORDERED: CEFAZOLIN 2000MG IV PUSH 10 ML IV SCH (06:00)
[2017-10-29] MEDS: INSULIN ASPART 100 UNITS/ML 3 ML PEN SC SCH ×5 (06:30→22:03)
[2017-10-29] MEDS: POTASSIUM CHLORIDE 20 MEQ TABCR PO SCH ×2 (08:59→22:00)
[2017-10-29] MEDS: FUROSEMIDE 40 MG TAB PO SCH (09:00)
[2017-10-29] MEDS ORDERED: BUMETANIDE 1 MG TAB PO SCH (09:00)
[2017-10-29] MEDS: GABAPENTIN 100 MG CAP PO SCH ×3 (09:00→21:59)
[2017-10-29] MEDS: ALLOPURINOL 100 MG TAB PO SCH ×2 (09:00→21:59)
[2017-10-29] MEDS: PANTOprazole SOD 40 MG TAB PO SCH (09:00)
--- NOTE | 2017-10-29 09:08 | Family Medicine Progress Note ---
Progress Note Date of Service Oct 29, 2017. Subjective Pt evaluation today including: conversation w/ patient, physical exam, chart review, lab review, review of studies, conversation w/ wardrobe image consultant, review of inpatient medication list Pain: denies PO Intake: npo no cp, sob somwehat improved, coughing up sputum, denies orthopnea, LE swelling , no light headedness, dizziness Medications Current Inpatient Medications Medications (Trade) Dose Ordered Sig/Rajesh Route Start Time Stop Time Status Last Admin Dose Admin Acetaminophen (Tylenol Tab) 650 mg Q4H PRN PO 10/29/17 00:45 11/28/17 00:44 Al Hydrox/Mg Hydrox/Simethicone (Maalox Max Susp) 15 ml Q4H PRN PO 10/29/17 00:45 11/28/17 00:44 Magnesium Hydroxide (Milk Of Magnesia Susp) 30 ml Q12H PRN PO 10/29/17 00:45 11/28/17 00:44 Ondansetron HCl (Zofran Inj) 4 mg Q6H PRN IV 10/29/17 00:45 11/28/17 00:44 Nitroglycerin (Nitrostat Tab) 0.4 mg UD PRN SL 10/29/17 00:45 11/28/17 00:44 Morphine Sulfate (MoRPHine SULFATE INJ) 2 mg Q30M PRN IV 10/29/17 00:45 11/12/17 00:44 Polyethylene (Miralax Powder Packet) 17 gm DAILY PRN PO 10/29/17 00:45 11/28/17 00:44 Allopurinol (Zyloprim Tab) 100 mg BID PO 10/29/17 09:00 11/28/17 08:59 Amiodarone HCl (Cordarone Tab) 200 mg DAILY PO 10/29/17 09:00 11/28/17 08:59 Bumetanide (Bumex Tab) 2 mg BID PO 10/29/17 09:00 11/28/17 08:59 Carvedilol (Coreg Tab) 6.25 mg BIDM PO 10/29/17 08:00 11/28/17 07:59 Furosemide (Lasix Tab) 40 mg DAILY PO 10/29/17 09:00 11/28/17 08:59 Gabapentin (Neurontin Cap) 100 mg TID PO 10/29/17 09:00 11/28/17 08:59 Insulin Glargine (Lantus Solostar Pen) 35 units HS SC 10/29/17 21:00 11/28/17 20:59 Albuterol/ Ipratropium (Combivent Respimat Inh) 1 puffs Q6 PRN INH 10/29/17 02:30 11/28/17 02:29 Isosorbide Mononitrate (Imdur Ext Rel Tab) 60 mg QAM PO 10/29/17 09:00 11/28/17 08:59 Levothyroxine Sodium (Synthroid Tab) 75 mcg DAILYBB PO 10/30/17 06:30 11/29/17 06:29 Meclizine HCl (Antivert Tab) 25 mg TID PRN PO 10/29/17 02:30 11/28/17 02:29 Metolazone (Zaroxolyn Tab) 2.5 mg SuWe@0900 PO 11/01/17 09:00 12/01/17 08:59 Potassium Chloride (Klor-Con Tab) 40 meq BID PO 10/29/17 09:00 11/28/17 08:59 Simvastatin (Zocor Tab) 40 mg HS PO 10/29/17 21:00 11/28/17 20:59 Spironolactone (Aldactone Tab) 25 mg QAM PO 10/29/17 09:00 11/28/17 08:59 Tramadol HCl (Ultram Tab) 50 mg Q8H PRN PO 10/29/17 02:30 11/28/17 02:29 Trazodone HCl (Desyrel Tab) 25 mg HS PRN PO 10/29/17 02:30 11/28/17 02:29 Warfarin Sodium (Coumadin Tab) 2 mg UD PO 10/29/17 02:30 11/28/17 02:29 UNV Warfarin Sodium (Coumadin Tab) 5 mg UD PO 10/29/17 02:30 11/28/17 02:29 UNV Zolpidem Tartrate (Ambien Tab) 1.25 mg HS PRN PO 10/29/17 02:30 11/28/17 02:29 Pantoprazole Sodium (Protonix Tab) 40 mg QAM PO 10/29/17 09:00 11/28/17 08:59 Insulin Aspart (novoLOG ASPART) SLIDING SCALE G... ACHS SC 10/29/17 06:30 11/28/17 06:29 Glucose (Glucose 40% Gel) 15-30 GRAMS 15 GRAMS... UD PRN PO 10/29/17 04:15 11/28/17 04:14 Glucose (Glucose Chew Tab) 4-8 Tablets 4 Tabl... UD PRN PO 10/29/17 04:15 11/28/17 04:14 Dextrose (Dextrose 50% 50ML Syringe) 25-50ML OF 50% DW IV FOR... UD PRN IV 10/29/17 04:15 11/28/17 04:14 Glucagon (Glucagon Inj) 1 mg UD PRN SQ 10/29/17 04:15 11/28/17 04:14 Objective Vital Signs Date Time Temp Pulse Resp B/P (MAP) Pulse Ox O2 Delivery O2 Flow Rate FiO2 10/29/17 07:10 36.8 75 20 94/62 (73) 91 Room Air 10/29/17 05:07 92 Room Air 10/29/17 04:59 36.4 78 18 97/66 (76) 10/29/17 04:00 Room Air 10/29/17 02:12 36.8 74 18 106/69 10/29/17 01:11 36.3 70 25 117/73 92 10/29/17 00:54 70 117/73 92 Room Air 10/28/17 23:16 78 25 94/64 94 Nasal Cannula 2.0 10/28/17 22:02 70 10/28/17 22:01 70 18 93/57 98 Room Air 10/28/17 21:00 70 20 103/89 95 Nasal Cannula 2.0 10/28/17 20:00 71 18 110/74 94 Nasal Cannula 2.0 10/28/17 19:55 88 Room Air 10/28/17 19:02 74 22 110/78 97 Nasal Cannula 3.0 10/28/17 18:15 73 19 119/70 95 Nasal Cannula 3.0 10/28/17 18:02 72 10/28/17 17:57 95 Nasal Cannula 4.0 10/28/17 17:18 92 Nasal Cannula 3.0 10/28/17 17:18 92 Nasal Cannula 3.0 10/28/17 17:14 75 20 96/61 92 Nasal Cannula 3.0 10/28/17 16:45 36.3 89 17 98/49 92 Room Air Physical Exam General Appearance: WD/WN, no apparent distress Neck: supple, trachea midline Respiratory/Chest: no respiratory distress, no accessory muscle use, + crackles Cardiovascular: no murmur, + irregularly irregular Abdomen: normal bowel sounds, non tender, soft Skin: normal color, warm/dry Laboratory Results 10/28/17 17:20 Red Blood Count 4.70, Mean Corpuscular Volume 96.6, Mean Corpuscular Hemoglobin 31.7, Mean Corpuscular Hemoglobin Concent 32.8, Mean Platelet Volume 9.8, Neutrophils (%) (Auto) 71.0, Lymphocytes (%) (Auto) 13.7, Monocytes (%) (Auto) 12.1, Eosinophils (%) (Auto) 2.7, Basophils (%) (Auto) 0.2, Neutrophils # (Auto ) 4.47, Lymphocytes # (Auto) 0.86, Monocytes # (Auto) 0.76, Eosinophils # (Auto ) 0.17, Basophils # (Auto) 0.01 10/28/17 17:20 Test 10/28/17 17:20 10/28/17 17:30 10/28/17 23:51 White Blood Count 6.29 K/uL (4.8-10.8) Red Blood Count 4.70 M/uL (4.7-6.1) Hemoglobin 14.9 g/dL (14.0-18.0) Hematocrit 45.4 % (42-52) Mean Corpuscular Volume 96.6 fL (80-100) Mean Corpuscular Hemoglobin 31.7 pg (25-34) Mean Corpuscular Hemoglobin Concent 32.8 g/dl (32-36) Platelet Count 151 K/uL (130-400) Mean Platelet Volume 9.8 fL (7.4-10.4) Neutrophils (%) (Auto) 71.0 % Lymphocytes (%) (Auto) 13.7 % Monocytes (%) (Auto) 12.1 % Eosinophils (%) (Auto) 2.7 % Basophils (%) (Auto) 0.2 % Neutrophils # (Auto) 4.47 K/uL (1.4-6.5) Lymphocytes # (Auto) 0.86 K/uL (1.2-3.4) Monocytes # (Auto) 0.76 K/uL (0.11-0.59) Eosinophils # (Auto) 0.17 K/uL (0-0.5) Basophils # (Auto) 0.01 K/uL (0-0.2) RDW Standard Deviation 56.2 fL (36.4-46.3) RDW Coefficient of Variation 15.9 % (11.5-14.5) Immature Granulocyte % (Auto) 0.3 % Immature Granulocyte # (Auto) 0.02 K/uL (0.00-0.02) Prothrombin Time 19.0 SECONDS (9.0-12.0) Prothromb Time International Ratio 1.8 (0.9-1.1) Est Creatinine Clear Calc Drug Dose 29.6 ml/min Estimated GFR () 29.3 Estimated GFR (Non- 25.3 BUN/Creatinine Ratio 26.4 (10-20) Calcium Level 9.1 mg/dl (8.5-10.1) Total Bilirubin 1.5 mg/dl (0.2-1) Direct Bilirubin 0.4 mg/dl (0-0.2) Aspartate Amino Transf (AST/SGOT) 28 U/L (15-37) Alanine Aminotransferase (ALT/SGPT) 31 U/L (12-78) Alkaline Phosphatase 93 U/L (45-117) Total Creatine Kinase 160 U/L (39-308) Creatine Kinase MB 2.8 ng/ml (0.5-3.6) Creatine Kinase MB Ratio 1.7 (0-3.0) Pro-B-Type Natriuretic Peptide 3558 pg/ml (0-900) Total Protein 7.5 gm/dl (6.4-8.2) Albumin 3.2 gm/dl (3.4-5.0) Lipase 277 U/L (73-393) Bedside Hemoglobin 14.6 g/dl (14.0-18.0) Bedside Hematocrit 43 % (42-52) Bedside Sodium 137 mEq/L (135-144) Bedside Potassium 3.9 mEq/L (3.3-5.0) Bedside Chloride 93 mEq/L (101-112) Bedside Total CO2 31 mEq/l (24-31) Anion Gap 18.0 mmol/L (16-25) Bedside Blood Urea Nitrogen 54 mg/dl (7-18) Bedside Creatinine 2.4 mg/dl (0.6-1.3) Bedside Glucose (other) 180 mg/dl (70-99) Bedside Ionized Calcium (Kristopher) 1.09 mmol/l (1.12-1.32) Troponin I 0.059 ng/ml (0-0.045) Assessment and Plan 76 yo M , with PMHx of CAD s/p LAD stent placement x2, chronic systolic CHF, biventricular ICD on 02/06/17, Chronic Afib, T2DM, dyslipidemia, CKD stage III, HTN, and hypothyroidism p/w 2 week history of SOB and Chest Pain found to be in acute hypoxic resp failure likely secondary to chf exacerbation Acute Hypoxic Respiratory Failure secondary to acute on chronic systolic CHF Exacerbation - Initial Troponin 0.062, 0.059 at 6 hours - EKG: Ventricular paced rhythm - Cardiology consultation, Pacemaker interrogation today - Held Bumex 2mg BID, , Lasix 40mg Daily due to low BP today, reassess int he PM - Continue Aldactone 25mg daily - Supplemental oxygen as needed to maintain SpO2 > 90% - Follow daily BMP - Continue home KlorCon 40mEq PO BID CHF, CAD, Chronic Afib: - F/u with cardiology, Awaiting Pacemaker interrogation - Continue Aldactone, Hold Bumex Lasix, due to Low BP, Repeat BP and assess - Continue Amiodarone 200 mg daily, Coreg 6.25 mg BID, Imdur 60 mg QAM - Current INR of 1.8 --> 1.5 Continue to hold T2DM: - Continue Lantus 35 units qHS - BSG ACHS and sliding insulin scale CKD stage III - Creatinine 2.41-->2.42 ( Baseline 2) - Follows with Dr. Lockwood outpatient Hypothyroidism - Continue home Synthroid 75 mcg daily DVT prophylaxis - INR 1.8 -->1.5 - Coumadin remains held Code Status - Full Resuscitation Continued [facility] [place] stay due to: multiple IV medications needed Discharge planning: home Resident Tracking Resident Involvement: Resident Care Provided Care Provided: Adult Hospital Medicine History Resident Physician Supervision Note: I was present with Dr. Macdonald during the history and exam. I discussed the case with the resident and agree with the findings and plan as documented in the note. Any exceptions or clarifications are listed here. Pt reports stable, minimally improved shortness of breath which is similar to previous episodes of CHF. Reports no chest pain, palpitations, nausea, abd pain , CORMIER, lightheadedness. General Appearance: no apparent distress, obese Respiratory: chest non-tender, no respiratory distress, decreased breath sounds (b/l bases), rales (trace b/l bases) Cardiovascular: normal peripheral pulses, no murmur, irregularly irregular Gastrointestinal: normal bowel sounds, soft, no organomegaly Assessment/Plan CHF w/ Biventricular ICD - cardiology consulted, recommendations appreciated. Continue carvedilol, simvastatin, Imdur, metolazone, spironolactone. Bumex for diuresis. REY on CKD III - likely 2/2 CHF exacerbation/fluid overload, should improve w/ diuresis. Monitor BMP. T/C c/s nephrology if no improvement Atrial fibrillation - warfarin held for procedure (expected today), continue to hold. HTN - continue Imdur, carvedilol, metolazone, spironolactone DMII - continue lantus/ISS GERD - continue present therapy Gout - continue allopurinol. Chronic pain - continue gabapentin. Morphine PRN
[2017-10-29 09:42] LABS: BASO % 0.3 %; BASO ABS # 0.02 K/uL (0-0.2); EOS % 2.2 %; EOS ABS # 0.15 K/uL (0-0.5); HEMATOCRIT 46.3 % (42-52); HEMOGLOBIN 14.9 g/dL (14.0-18.0); IG# 0.02 K/uL (0.00-0.02); LYMPH % 9.5 %; LYMPH ABS # 0.64 K/uL (1.2-3.4); MEAN CELL VOLUME 98.5 fL (80-100); MEAN CORPUSCULAR HEMOGLOBIN 31.7 pg (25-34); MEAN PLATELET VOLUME 9.7 fL (7.4-10.4); MONO % 9.7 %; MONO ABS # 0.65 K/uL (0.11-0.59); NEUT ABS # 5.24 K/uL (1.4-6.5); PLATELET COUNT 139 K/uL (130-400); RED CELL DISTRIBUTION WIDTH CV 16.3 % (11.5-14.5); WHITE BLOOD COUNT 6.72 K/uL (4.8-10.8)
[2017-10-29 09:55] LABS: INR 1.5 (0.9-1.1); MEAN CORPUSCULAR HGB CONC 32.2 g/dl (32-36)
[2017-10-29] MEDS: AMIODARONE 200 MG TAB PO SCH (10:00)
[2017-10-29] MEDS: CARVEDILOL 6.25 MG TAB PO SCH ×2 (10:00→16:57)
[2017-10-29] MEDS: SPIRONOLACTONE 25 MG TAB PO SCH (10:01)
[2017-10-29] MEDS: ISOSORBIDE MONONITRATE 60 MG TABCR PO SCH (10:01)
[2017-10-29 10:02] LABS: CALCIUM 8.9 mg/dl (8.5-10.1); CREATININE 2.42 mg/dl (0.60-1.40); POTASSIUM 3.8 mmol/L (3.5-5.1)
[2017-10-29] MEDS ORDERED: BUMETANIDE IV 2 MG in SYRINGE 0 ML IV ONE (10:15)
--- NOTE | 2017-10-29 16:54 | Cardiology Consultation ---
Cardiology Consultation Date of Consultation: Oct 29, 2017. Requesting Physician: Dr. Mcadonald Reason for Consultation: CHF Pt evaluation today including: conversation w/ patient, conversation w/ family , physical exam, lab review, review of studies, review of inpatient medication list, conversation w/ attending History of Present Illness This is a very pleasant Turkish-speaking gentleman with a history of coronary artery disease including stent placement, hypertension, hypercholesterolemia and diabetes mellitus. He has permanent atrial fibrillation as well as a cardiomyopathy and severe left ventricular dysfunction. An ICD was implanted on 02/20/2011 for primary prevention of sudden cardiac , he required several admissions for congestive heart failure in the fall of 2015 and the spring and we therefore upgraded his device to a biventricular ICD with implantation of a new left ventricular lead on 02/06/2017. He then presented with high impedances on several of the factors of his LV lead (it is a quadripolar lead) for uncertain reasons but we could initially program around it. He then returned with further electrode showing high impedance readings and we could no longer program around it therefore the lead was turned off (leaving him only right ventricular pacing) on 10/13/2017. Of note, he had much less difficulty with congestive heart failure following biventricular pacing although his ejection fraction did not improve substantially and it wasn' t clear that he felt much better although he seemed in general to do better. He now returns with recurrent congestive heart failure after being seen in the office several times with this problem. He was actually scheduled for a left ventricular lead revision today. He has not been having chest discomfort, he does not get peripheral edema but notes that his abdomen is swollen (which he often describes when he goes into heart failure). Past Medical/Surgical History (1) History of - hypertension (2) Two stents (3) Kidney stone (4) CHF (congestive heart failure) (5) Gastroesophageal reflux disease (6) Thyroid dysfunction (7) Chronic renal insufficiency Family History Diabetes mellitus FH: cancer Heart disease Hypertension Kidney disease Kidney stones Social History Smoking Status: Never Smoker History of Alcohol Use: No Review of Systems Constitutional: No fever, No weight loss, No weakness Respiratory: + shortness of breath, + dyspnea on exertion Cardiac: + see HPI Abdomen: + problem reported (abdominal bloating) All Other Systems: Reviewed and Negative Allergies Coded Allergies: No Known Allergies (Verified , 09/08/17) Medications Current Inpatient Medications Medications (Trade) Dose Ordered Sig/Rajesh Route Start Time Stop Time Status Last Admin Dose Admin Acetaminophen (Tylenol Tab) 650 mg Q4H PRN PO 10/29/17 00:45 11/28/17 00:44 Al Hydrox/Mg Hydrox/Simethicone (Maalox Max Susp) 15 ml Q4H PRN PO 10/29/17 00:45 11/28/17 00:44 Magnesium Hydroxide (Milk Of Magnesia Susp) 30 ml Q12H PRN PO 10/29/17 00:45 11/28/17 00:44 Ondansetron HCl (Zofran Inj) 4 mg Q6H PRN IV 10/29/17 00:45 11/28/17 00:44 Nitroglycerin (Nitrostat Tab) 0.4 mg UD PRN SL 10/29/17 00:45 11/28/17 00:44 Morphine Sulfate (MoRPHine SULFATE INJ) 2 mg Q30M PRN IV 10/29/17 00:45 11/12/17 00:44 Polyethylene (Miralax Powder Packet) 17 gm DAILY PRN PO 10/29/17 00:45 11/28/17 00:44 Allopurinol (Zyloprim Tab) 100 mg BID PO 10/29/17 09:00 11/28/17 08:59 10/29/17 09:00 100 MG Amiodarone HCl (Cordarone Tab) 200 mg DAILY PO 10/29/17 09:00 11/28/17 08:59 10/29/17 10:00 200 MG Carvedilol (Coreg Tab) 6.25 mg BIDM PO 10/29/17 08:00 11/28/17 07:59 10/29/17 10:00 6.25 MG Furosemide (Lasix Tab) 40 mg DAILY PO 10/29/17 09:00 11/28/17 08:59 Gabapentin (Neurontin Cap) 100 mg TID PO 10/29/17 09:00 11/28/17 08:59 10/29/17 13:34 100 MG Insulin Glargine (Lantus Solostar Pen) 35 units HS SC 10/29/17 21:00 11/28/17 20:59 Albuterol/ Ipratropium (Combivent Respimat Inh) 1 puffs Q6 PRN INH 10/29/17 02:30 11/28/17 02:29 Isosorbide Mononitrate (Imdur Ext Rel Tab) 60 mg QAM PO 10/29/17 09:00 11/28/17 08:59 10/29/17 10:01 60 MG Levothyroxine Sodium (Synthroid Tab) 75 mcg DAILYBB PO 10/30/17 06:30 11/29/17 06:29 Meclizine HCl (Antivert Tab) 25 mg TID PRN PO 10/29/17 02:30 11/28/17 02:29 Metolazone (Zaroxolyn Tab) 2.5 mg SuWe@0900 PO 11/01/17 09:00 12/01/17 08:59 Potassium Chloride (Klor-Con Tab) 40 meq BID PO 10/29/17 09:00 11/28/17 08:59 10/29/17 08:59 40 MEQ Simvastatin (Zocor Tab) 40 mg HS PO 10/29/17 21:00 11/28/17 20:59 Spironolactone (Aldactone Tab) 25 mg QAM PO 10/29/17 09:00 11/28/17 08:59 10/29/17 10:01 25 MG Tramadol HCl (Ultram Tab) 50 mg Q8H PRN PO 10/29/17 02:30 11/28/17 02:29 Trazodone HCl (Desyrel Tab) 25 mg HS PRN PO 10/29/17 02:30 11/28/17 02:29 Warfarin Sodium (Coumadin Tab) 2 mg UD PO 10/29/17 02:30 11/28/17 02:29 Future Hold Warfarin Sodium (Coumadin Tab) 5 mg UD PO 10/29/17 02:30 11/28/17 02:29 Future Hold Zolpidem Tartrate (Ambien Tab) 1.25 mg HS PRN PO 10/29/17 02:30 11/28/17 02:29 Pantoprazole Sodium (Protonix Tab) 40 mg QAM PO 10/29/17 09:00 11/28/17 08:59 10/29/17 09:00 40 MG Insulin Aspart (novoLOG ASPART) SLIDING SCALE G... ACHS SC 10/29/17 06:30 11/28/17 06:29 10/29/17 12:33 11 UNITS Glucose (Glucose 40% Gel) 15-30 GRAMS 15 GRAMS... UD PRN PO 10/29/17 04:15 11/28/17 04:14 Glucose (Glucose Chew Tab) 4-8 Tablets 4 Tabl... UD PRN PO 10/29/17 04:15 11/28/17 04:14 Dextrose (Dextrose 50% 50ML Syringe) 25-50ML OF 50% DW IV FOR... UD PRN IV 10/29/17 04:15 11/28/17 04:14 Glucagon (Glucagon Inj) 1 mg UD PRN SQ 10/29/17 04:15 11/28/17 04:14 Bumetanide 2 mg/ Syringe 8 ml @ 4 mls/min DAILY@09,17 IV 10/29/17 17:00 11/28/17 16:59 Cefazolin Sodium 10 ml @ 100 mls/hr PREOP IV 10/29/17 06:00 10/29/17 18:00 Lactated Ringer's 1,000 ml @ 15 mls/hr Q24H IV 10/29/17 06:00 10/29/17 18:00 Physical Exam Vital Signs Past 12 Hours Date Time Temp Pulse Resp B/P (MAP) Pulse Ox O2 Delivery O2 Flow Rate FiO2 10/29/17 16:07 36.8 73 18 104/67 (79) 96 Room Air 10/29/17 12:01 91 Room Air 10/29/17 11:08 36.5 72 18 96/66 (76) 95 Room Air 10/29/17 08:00 91 Room Air 10/29/17 07:10 36.8 75 20 94/62 (73) 91 Room Air 10/29/17 05:07 92 Room Air 10/29/17 04:59 36.4 78 18 97/66 (76) Constitutional: General Apperance: heathly-appearing Level of Distress: NAD Psychiatric: Mental Status: active & alert Head: normocephalic Eyes: EOM: EOMI ENMT: normal ENT inspection, hearing grossly normal Neck: supple, no masses Lungs: Respiratory effort: no dyspnea, good air movement Auscultation: no wheezing, rales/crackles on the left, rales/crackles on the right Cardiovascular: Heart Auscultation: RRR, no murmurs, no rubs, no gallops Peripheral Pulses: Bruits: none appreciated Abdomen: Bowel Sounds: normal Inspection & Palpation: soft, no tenderness, guarding & rebound, no masses Extremities: no edema Neurologic: Cranial Nerves: grossly intact Sensation: grossly intact Data Laboratory Results: Last 24 Hours Test 10/28/17 17:20 10/28/17 17:30 10/28/17 23:51 10/29/17 09:06 White Blood Count 6.29 K/uL Red Blood Count 4.70 M/uL Hemoglobin 14.9 g/dL Hematocrit 45.4 % Mean Corpuscular Volume 96.6 fL Mean Corpuscular Hemoglobin 31.7 pg Mean Corpuscular Hemoglobin Concent 32.8 g/dl Platelet Count 151 K/uL Mean Platelet Volume 9.8 fL Neutrophils (%) (Auto) 71.0 % Lymphocytes (%) (Auto) 13.7 % Monocytes (%) (Auto) 12.1 % Eosinophils (%) (Auto) 2.7 % Basophils (%) (Auto) 0.2 % Neutrophils # (Auto) 4.47 K/uL Lymphocytes # (Auto) 0.86 K/uL Monocytes # (Auto) 0.76 K/uL Eosinophils # (Auto) 0.17 K/uL Basophils # (Auto) 0.01 K/uL RDW Standard Deviation 56.2 fL RDW Coefficient of Variation 15.9 % Immature Granulocyte % (Auto) 0.3 % Immature Granulocyte # (Auto) 0.02 K/uL Prothrombin Time 19.0 SECONDS Prothromb Time International Ratio 1.8 Sodium Level 134 mmol/L Potassium Level 3.9 mmol/L Chloride Level 97 mmol/L Carbon Dioxide Level 30 mmol/L Anion Gap 7.0 mmol/L 18.0 mmol/L Blood Urea Nitrogen 64 mg/dl Creatinine 2.41 mg/dl Est Creatinine Clear Calc Drug Dose 29.6 ml/min Estimated GFR () 29.3 Estimated GFR (Non- 25.3 BUN/Creatinine Ratio 26.4 Random Glucose 169 mg/dl Calcium Level 9.1 mg/dl Total Bilirubin 1.5 mg/dl Direct Bilirubin 0.4 mg/dl Aspartate Amino Transf (AST/SGOT) 28 U/L Alanine Aminotransferase (ALT/SGPT) 31 U/L Alkaline Phosphatase 93 U/L Total Creatine Kinase 160 U/L Creatine Kinase MB 2.8 ng/ml Creatine Kinase MB Ratio 1.7 Troponin I 0.062 ng/ml 0.059 ng/ml Pro-B-Type Natriuretic Peptide 3558 pg/ml Total Protein 7.5 gm/dl Albumin 3.2 gm/dl Lipase 277 U/L Bedside Hemoglobin 14.6 g/dl Bedside Hematocrit 43 % Bedside Sodium 137 mEq/L Bedside Potassium 3.9 mEq/L Bedside Chloride 93 mEq/L Bedside Total CO2 31 mEq/l Bedside Blood Urea Nitrogen 54 mg/dl Bedside Creatinine 2.4 mg/dl Bedside Glucose (other) 180 mg/dl Bedside Ionized Calcium (Kristopher) 1.09 mmol/l Bedside Glucose 303 mg/dl Test 10/29/17 09:30 10/29/17 11:28 10/29/17 15:36 White Blood Count 6.72 K/uL Red Blood Count 4.70 M/uL Hemoglobin 14.9 g/dL Hematocrit 46.3 % Mean Corpuscular Volume 98.5 fL Mean Corpuscular Hemoglobin 31.7 pg Mean Corpuscular Hemoglobin Concent 32.2 g/dl Platelet Count 139 K/uL Mean Platelet Volume 9.7 fL Neutrophils (%) (Auto) 78.0 % Lymphocytes (%) (Auto) 9.5 % Monocytes (%) (Auto) 9.7 % Eosinophils (%) (Auto) 2.2 % Basophils (%) (Auto) 0.3 % Neutrophils # (Auto) 5.24 K/uL Lymphocytes # (Auto) 0.64 K/uL Monocytes # (Auto) 0.65 K/uL Eosinophils # (Auto) 0.15 K/uL Basophils # (Auto) 0.02 K/uL RDW Standard Deviation 58.0 fL RDW Coefficient of Variation 16.3 % Immature Granulocyte % (Auto) 0.3 % Immature Granulocyte # (Auto) 0.02 K/uL Prothrombin Time 16.0 SECONDS Prothromb Time International Ratio 1.5 Sodium Level 131 mmol/L Potassium Level 3.8 mmol/L Chloride Level 95 mmol/L Carbon Dioxide Level 33 mmol/L Anion Gap 3.0 mmol/L Blood Urea Nitrogen 62 mg/dl Creatinine 2.42 mg/dl Est Creatinine Clear Calc Drug Dose 29.2 ml/min Estimated GFR () 29.2 Estimated GFR (Non- 25.2 BUN/Creatinine Ratio 25.5 Random Glucose 328 mg/dl Calcium Level 8.9 mg/dl Beta-Hydroxybutyric Acid 1.56 mg/dL Bedside Glucose 218 mg/dl 136 mg/dl Imaging: Probable mild congestive heart failure EKG: Ventricular pacing with a wide QRS complex Telemetry reviewed: Ventricular pacing Assessment & Plan #1. Shortness of breath: Although he does not have a lot of edema and his x-ray does not show a lot of congestive heart failure I suspect his symptoms are due to heart failure and that we need to diuresis. I am going to increase his Bumex to 2 mg IV twice a day. #2. Biventricular ICD: His left ventricular lead is not functioning properly and therefore he is only right ventricular pacing. I think he did better with biventricular pacing, unfortunately his left ventricular lead is not working and I think it is a lead issue. 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 He probably will need an upgrade, but that does not need to be done this admission and will probably have to reschedule for the near future. Thank you for allowing me to participate in his care.
[2017-10-29] MEDS: BUMETANIDE IV 2 MG in SYRINGE 0 ML IV SCH (16:57)
[2017-10-29] MEDS ORDERED: SIMVASTATIN 40 MG TAB PO SCH (21:00)
[2017-10-29] MEDS ORDERED: INSULIN GLARGINE SOLOSTAR 100 UNITS/ML 3 ML PEN SC SCH (21:00)
[2017-10-29] MEDS ORDERED: NURSING VERBAL MED ORDER ONE (23:45)
[2017-10-30] VITALS (8 sets, daily range): BP systolic 96–106; BP diastolic 63–70; PULSE 66–75; TEMP 36.4–36.8; O2SAT 90–97; Ht 172.7 cm; Wt 92.9 kg
[2017-10-30] MEDS ORDERED: NURSING VERBAL MED ORDER ONE (03:30)
[2017-10-30] MEDS: INSULIN ASPART 100 UNITS/ML 3 ML PEN SC SCH ×3 (05:48→12:07)
[2017-10-30] MEDS ORDERED: LACTATED RINGER'S 1000ML IV SCH (06:00)
[2017-10-30] MEDS ORDERED: CEFAZOLIN 2000MG IV PUSH 10 ML IV SCH (06:00)
[2017-10-30] MEDS ORDERED: LEVOTHYROXINE 75 MCG TAB PO SCH (06:30)
[2017-10-30 08:11] LABS: HEMATOCRIT 44.7 % (42-52); HEMOGLOBIN 14.7 g/dL (14.0-18.0); MEAN CELL VOLUME 97.8 fL (80-100); MEAN CORPUSCULAR HEMOGLOBIN 32.2 pg (25-34); MEAN CORPUSCULAR HGB CONC 32.9 g/dl (32-36); MEAN PLATELET VOLUME 9.7 fL (7.4-10.4); PLATELET COUNT 135 K/uL (130-400); RED CELL DISTRIBUTION WIDTH CV 16.3 % (11.5-14.5); RED CELL DISTRIBUTION WIDTH SD 56.7 fL (36.4-46.3); WHITE BLOOD COUNT 7.09 K/uL (4.8-10.8)
[2017-10-30 08:18] LABS: INR 1.3 (0.9-1.1)
[2017-10-30] MEDS: FUROSEMIDE 40 MG TAB PO SCH (09:00)
[2017-10-30 09:19] LABS: CALCIUM 8.9 mg/dl (8.5-10.1); CREATININE 2.33 mg/dl (0.60-1.40); POTASSIUM 3.8 mmol/L (3.5-5.1)
[2017-10-30] MEDS: POTASSIUM CHLORIDE 20 MEQ TABCR PO SCH (09:19)
[2017-10-30] MEDS: AMIODARONE 200 MG TAB PO SCH (09:20)
[2017-10-30] MEDS: ALLOPURINOL 100 MG TAB PO SCH (09:20)
[2017-10-30] MEDS: ISOSORBIDE MONONITRATE 60 MG TABCR PO SCH (09:20)
[2017-10-30] MEDS: PANTOprazole SOD 40 MG TAB PO SCH (09:20)
[2017-10-30] MEDS: GABAPENTIN 100 MG CAP PO SCH ×2 (09:21→14:19)
[2017-10-30] MEDS: BUMETANIDE IV 2 MG in SYRINGE 0 ML IV SCH ×2 (09:22→17:00)
[2017-10-30] MEDS: CARVEDILOL 6.25 MG TAB PO SCH ×2 (09:22→17:00)
[2017-10-30] MEDS: SPIRONOLACTONE 25 MG TAB PO SCH (09:22)
--- NOTE | 2017-10-30 09:52 | Family Medicine Progress Note ---
Progress Note Date of Service Oct 30, 2017. Subjective Pt evaluation today including: conversation w/ patient, physical exam, chart review, lab review, review of studies, review of inpatient medication list Feels back to his baseline. No chest pain, shortness of breath, dizziness, palpitations. All Other Systems: Reviewed and Negative Medications Current Inpatient Medications Medications (Trade) Dose Ordered Sig/Rajesh Route Start Time Stop Time Status Last Admin Dose Admin Acetaminophen (Tylenol Tab) 650 mg Q4H PRN PO 10/29/17 00:45 11/28/17 00:44 Al Hydrox/Mg Hydrox/Simethicone (Maalox Max Susp) 15 ml Q4H PRN PO 10/29/17 00:45 11/28/17 00:44 Magnesium Hydroxide (Milk Of Magnesia Susp) 30 ml Q12H PRN PO 10/29/17 00:45 11/28/17 00:44 Ondansetron HCl (Zofran Inj) 4 mg Q6H PRN IV 10/29/17 00:45 11/28/17 00:44 Nitroglycerin (Nitrostat Tab) 0.4 mg UD PRN SL 10/29/17 00:45 11/28/17 00:44 Morphine Sulfate (MoRPHine SULFATE INJ) 2 mg Q30M PRN IV 10/29/17 00:45 11/12/17 00:44 Polyethylene (Miralax Powder Packet) 17 gm DAILY PRN PO 10/29/17 00:45 11/28/17 00:44 Allopurinol (Zyloprim Tab) 100 mg BID PO 10/29/17 09:00 11/28/17 08:59 10/30/17 09:20 100 MG Amiodarone HCl (Cordarone Tab) 200 mg DAILY PO 10/29/17 09:00 11/28/17 08:59 10/30/17 09:20 200 MG Carvedilol (Coreg Tab) 6.25 mg BIDM PO 10/29/17 08:00 11/28/17 07:59 10/30/17 09:22 6.25 MG Furosemide (Lasix Tab) 40 mg DAILY PO 10/29/17 09:00 11/28/17 08:59 Gabapentin (Neurontin Cap) 100 mg TID PO 10/29/17 09:00 11/28/17 08:59 10/30/17 09:21 100 MG Insulin Glargine (Lantus Solostar Pen) 35 units HS SC 10/29/17 21:00 11/28/17 20:59 10/29/17 22:27 35 UNITS Albuterol/ Ipratropium (Combivent Respimat Inh) 1 puffs Q6 PRN INH 10/29/17 02:30 11/28/17 02:29 Isosorbide Mononitrate (Imdur Ext Rel Tab) 60 mg QAM PO 10/29/17 09:00 11/28/17 08:59 10/30/17 09:20 60 MG Levothyroxine Sodium (Synthroid Tab) 75 mcg DAILYBB PO 10/30/17 06:30 11/29/17 06:29 Meclizine HCl (Antivert Tab) 25 mg TID PRN PO 10/29/17 02:30 11/28/17 02:29 Metolazone (Zaroxolyn Tab) 2.5 mg SuWe@0900 PO 11/01/17 09:00 12/01/17 08:59 Potassium Chloride (Klor-Con Tab) 40 meq BID PO 10/29/17 09:00 11/28/17 08:59 10/30/17 09:19 40 MEQ Simvastatin (Zocor Tab) 40 mg HS PO 10/29/17 21:00 11/28/17 20:59 10/29/17 21:59 40 MG Spironolactone (Aldactone Tab) 25 mg QAM PO 10/29/17 09:00 11/28/17 08:59 10/30/17 09:22 25 MG Tramadol HCl (Ultram Tab) 50 mg Q8H PRN PO 10/29/17 02:30 11/28/17 02:29 Trazodone HCl (Desyrel Tab) 25 mg HS PRN PO 10/29/17 02:30 11/28/17 02:29 Warfarin Sodium (Coumadin Tab) 2 mg UD PO 10/29/17 02:30 11/28/17 02:29 Future Hold Warfarin Sodium (Coumadin Tab) 5 mg UD PO 10/29/17 02:30 11/28/17 02:29 Future Hold Zolpidem Tartrate (Ambien Tab) 1.25 mg HS PRN PO 10/29/17 02:30 11/28/17 02:29 Pantoprazole Sodium (Protonix Tab) 40 mg QAM PO 10/29/17 09:00 11/28/17 08:59 10/30/17 09:20 40 MG Glucose (Glucose 40% Gel) 15-30 GRAMS 15 GRAMS... UD PRN PO 10/29/17 04:15 11/28/17 04:14 Glucose (Glucose Chew Tab) 4-8 Tablets 4 Tabl... UD PRN PO 10/29/17 04:15 11/28/17 04:14 Dextrose (Dextrose 50% 50ML Syringe) 25-50ML OF 50% DW IV FOR... UD PRN IV 10/29/17 04:15 11/28/17 04:14 Glucagon (Glucagon Inj) 1 mg UD PRN SQ 10/29/17 04:15 11/28/17 04:14 Bumetanide 2 mg/ Syringe 8 ml @ 4 mls/min DAILY@09,17 IV 10/29/17 17:00 11/28/17 16:59 10/30/17 09:22 4 MLS/MIN Insulin Aspart (novoLOG ASPART) SLIDING SCALE G... Q6 SC 10/30/17 00:00 11/29/17 00:00 Lactated Ringer's 1,000 ml @ 15 mls/hr Q24H IV 10/30/17 06:00 11/29/17 05:59 10/30/17 05:53 15 MLS/HR Cefazolin Sodium 10 ml @ 100 mls/hr PREOP IV 10/30/17 06:00 10/31/17 05:59 Objective Vital Signs Date Time Temp Pulse Resp B/P (MAP) Pulse Ox O2 Delivery O2 Flow Rate FiO2 10/30/17 08:00 91 Room Air 10/30/17 07:49 36.4 66 18 98/63 (75) 95 Room Air 10/30/17 04:46 36.5 73 20 105/70 (82) 90 Room Air 10/30/17 04:00 Room Air 10/30/17 00:00 Room Air 10/29/17 23:26 36.7 74 18 103/66 (78) 94 Room Air 10/29/17 20:00 Room Air 10/29/17 19:40 36.8 66 18 94/56 (69) 92 Room Air 10/29/17 16:07 36.8 73 18 104/67 (79) 96 Room Air 10/29/17 16:00 94 Room Air 10/29/17 12:01 91 Room Air 10/29/17 11:08 36.5 72 18 96/66 (76) 95 Room Air Physical Exam General Appearance: WD/WN, no apparent distress Respiratory/Chest: no respiratory distress, no accessory muscle use, + crackles (fine at bases) Cardiovascular: regular rate, rhythm, no murmur Abdomen: normal bowel sounds, non tender, soft Extremities: no calf tenderness, normal capillary refill, + pedal edema (1+ equal bilaterally) Neurologic/Psychiatric: no motor/sensory deficits (grossly normal), alert Skin: normal color, warm/dry, no rash Laboratory Results 10/30/17 07:53 10/30/17 07:53 Test 10/30/17 07:38 10/30/17 07:53 Bedside Glucose 185 mg/dl (70-99) Red Blood Count 4.57 M/uL (4.7-6.1) Mean Corpuscular Volume 97.8 fL (80-100) Mean Corpuscular Hemoglobin 32.2 pg (25-34) Mean Corpuscular Hemoglobin Concent 32.9 g/dl (32-36) RDW Standard Deviation 56.7 fL (36.4-46.3) RDW Coefficient of Variation 16.3 % (11.5-14.5) Mean Platelet Volume 9.7 fL (7.4-10.4) Prothrombin Time 13.8 SECONDS (9.0-12.0) Prothromb Time International Ratio 1.3 (0.9-1.1) Anion Gap 6.0 mmol/L (3-11) Est Creatinine Clear Calc Drug Dose 30.3 ml/min Estimated GFR () 30.6 Estimated GFR (Non- 26.4 BUN/Creatinine Ratio 26.7 (10-20) Calcium Level 8.9 mg/dl (8.5-10.1) Chemistry Specimen Hemolysis Assessment and Plan 76 yo M , with PMHx of CAD s/p LAD stent placement x2, chronic systolic CHF, biventricular ICD on 02/06/17, Chronic Afib, T2DM, dyslipidemia, CKD stage III, HTN, and hypothyroidism p/w 2 week history of SOB and Chest Pain found to be in acute hypoxic resp failure likely secondary to chf exacerbation Acute Hypoxic Respiratory Failure secondary to acute on chronic systolic CHF Exacerbation - Initial Troponin 0.062, 0.059 at 6 hours - EKG: Ventricular paced rhythm - Appreciate cardiology recommendations - upgrade pacemaker as outpatient planned for next . Ok to be discharged. - Bumex IV 2mg today and switch to PO as outpatient - Continue Aldactone, metolazone and carvedilol. - Stop lasix (some confusion with this but he does not take it at home and we are double dosing with lasix and bumex CAD, Chronic Afib: - F/u with cardiology - Continue Aldactone, metolazone, Amiodarone 200 mg daily, Coreg 6.25 mg BID, Imdur 60 mg QAM - unclear why he is not on ACEi but will leave this up to cardiology as outpatient given low BP while inpatient - Switch warfarin to eliquis as per cardiology recommendations. T2DM - Continue Lantus 35 units qHS - BSG ACHS and sliding insulin scale CKD stage 3 - Creatinine@ baseline - Follows with Dr. Lockwood outpatient Hypothyroidism - Continue home Synthroid 75 mcg daily VTE prophylaxis - warfarin switch to eliquis Code Status - Full Resuscitation Disposition - aim home later today History Resident Physician Supervision Note: I was present with Dr. Rodriguez during the history and exam. I discussed the case with the resident and agree with the findings and plan as documented in the note. Any exceptions or clarifications are listed here. Pt reports gradual improvement in his shortness of breath to baseline. Reports no chest pain, lightheadedness, headache, leg swelling. General Appearance: no apparent distress, obese Respiratory: chest non-tender, lungs clear, no respiratory distress, decreased breath sounds (b/l bases) Cardiovascular: normal peripheral pulses, regular rate, rhythm, no murmur Assessment/Plan 77 y/o male h/o CHF, CKD, atrial fibrillation, HTN, DMII presents w/ shortness of breath CHF w/ Biventricular ICD - cardiology consulted, recommendations appreciated. Continue carvedilol, simvastatin, Imdur, metolazone, spironolactone. PO Bumex for diuresis. REY on CKD III - baseline 1.8-2.1 Atrial fibrillation - warfarin held for procedure (expected today), continue to hold for next week, start apixaban per cardiology recommendation HTN - continue Imdur, carvedilol, metolazone, spironolactone DMII - continue lantus/ISS GERD - continue present therapy Gout - continue allopurinol. Chronic pain - continue gabapentin. Morphine PRN
--- NOTE | 2017-10-30 10:01 | Cardiology Follow-Up ---
Subjective Date of Service: Oct 30, 2017. Pt evaluation today including: conversation w/ patient, conversation w/ family , physical exam, lab review, review of studies, review of inpatient medication list, conversation w/ attending History of Present Illness This is a very pleasant Kyrgyz-speaking gentleman with a history of coronary artery disease including stent placement, hypertension, hypercholesterolemia and diabetes mellitus. He has permanent atrial fibrillation as well as a cardiomyopathy and severe left ventricular dysfunction. An ICD was implanted on 02/20/2011 for primary prevention of sudden cardiac , he required several admissions for congestive heart failure in the fall of 2015 and the spring of 2016 and we therefore upgraded his device to a biventricular ICD with implantation of a new left ventricular lead on 02/06/2017. He then presented with high impedances on several of the factors of his LV lead (it is a quadripolar lead) for uncertain reasons but we could initially program around it. He then returned with further electrode showing high impedance readings and we could no longer program around it therefore the lead was turned off (leaving him only right ventricular pacing) on 10/13/2017. Of note, he had much less difficulty with congestive heart failure following biventricular pacing although his ejection fraction did not improve substantially and it wasn' t clear that he felt much better although he seemed in general to do better. He now returns with recurrent congestive heart failure after being seen in the office several times with this problem. He was actually scheduled for a left ventricular lead revision yesterday. He has not been having chest discomfort, he does not get peripheral edema but notes that his abdomen is swollen (which he often describes when he goes into heart failure). He feels much better now with diuresis, no SOB today. Social History Smoking Status: Never Smoker History of Alcohol Use: No Review of Systems Respiratory: + shortness of breath, + dyspnea on exertion Cardiac: + see HPI Medications Cardiovascular: Item Value Date Time Metolazone 2.5 mg 11/01/17 0900 (Zaroxolyn Tab) SuWe@0900/PO Simvastatin 40 mg 10/29/17 2100 (Zocor Tab) HS/PO 10/29/17 215 Amiodarone HCl 200 mg 10/29/17 0900 (Cordarone Tab) DAILY/PO 10/29/17 1000 Isosorbide 60 mg 10/29/17 0900 Mononitrate QAM/PO 10/29/17 1001 (Imdur Ext Rel Tab) Potassium Chloride 40 meq 10/29/17 0900 (Klor-Con Tab) BID/PO 10/29/17 2200 Spironolactone 25 mg 10/29/17 0900 (Aldactone Tab) QAM/PO 10/29/17 1001 Carvedilol 6.25 mg 10/29/17 0800 (Coreg Tab) BIDM/PO 10/29/17 1657 Objective Vital Signs Past 12 Hours Date Time Temp Pulse Resp B/P (MAP) Pulse Ox O2 Delivery O2 Flow Rate FiO2 10/30/17 07:49 36.4 66 18 98/63 (75) 95 Room Air 10/30/17 04:46 36.5 73 20 105/70 (82) 90 Room Air 10/30/17 04:00 Room Air 10/30/17 00:00 Room Air 10/29/17 23:26 36.7 74 18 103/66 (78) 94 Room Air Last Recorded Weight-Kilograms: 92.900 Physical Exam Constitutional: General Apperance: heathly-appearing Level of Distress: NAD Lungs: Respiratory effort: no dyspnea, good air movement Auscultation: no wheezing, rales/crackles on the left, rales/crackles on the right Cardiovascular: Heart Auscultation: RRR, no murmurs, no rubs, no gallops Peripheral Pulses: Bruits: none appreciated Extremities: no edema Data Laboratory Results: Last 24 Hours Test 10/29/17 09:06 10/29/17 09:30 10/29/17 11:28 10/29/17 15:36 Bedside Glucose 303 mg/dl 218 mg/dl 136 mg/dl White Blood Count 6.72 K/uL Red Blood Count 4.70 M/uL Hemoglobin 14.9 g/dL Hematocrit 46.3 % Mean Corpuscular Volume 98.5 fL Mean Corpuscular Hemoglobin 31.7 pg Mean Corpuscular Hemoglobin Concent 32.2 g/dl Platelet Count 139 K/uL Mean Platelet Volume 9.7 fL Neutrophils (%) (Auto) 78.0 % Lymphocytes (%) (Auto) 9.5 % Monocytes (%) (Auto) 9.7 % Eosinophils (%) (Auto) 2.2 % Basophils (%) (Auto) 0.3 % Neutrophils # (Auto) 5.24 K/uL Lymphocytes # (Auto) 0.64 K/uL Monocytes # (Auto) 0.65 K/uL Eosinophils # (Auto) 0.15 K/uL Basophils # (Auto) 0.02 K/uL RDW Standard Deviation 58.0 fL RDW Coefficient of Variation 16.3 % Immature Granulocyte % (Auto) 0.3 % Immature Granulocyte # (Auto) 0.02 K/uL Prothrombin Time 16.0 SECONDS Prothromb Time International Ratio 1.5 Sodium Level 131 mmol/L Potassium Level 3.8 mmol/L Chloride Level 95 mmol/L Carbon Dioxide Level 33 mmol/L Anion Gap 3.0 mmol/L Blood Urea Nitrogen 62 mg/dl Creatinine 2.42 mg/dl Est Creatinine Clear Calc Drug Dose 29.2 ml/min Estimated GFR () 29.2 Estimated GFR (Non- 25.2 BUN/Creatinine Ratio 25.5 Random Glucose 328 mg/dl Calcium Level 8.9 mg/dl Beta-Hydroxybutyric Acid 1.56 mg/dL Test 10/29/17 19:30 10/30/17 00:14 10/30/17 05:48 10/30/17 07:38 Bedside Glucose 187 mg/dl 173 mg/dl 166 mg/dl 185 mg/dl Test 10/30/17 07:53 White Blood Count 7.09 K/uL Red Blood Count 4.57 M/uL Hemoglobin 14.7 g/dL Hematocrit 44.7 % Mean Corpuscular Volume 97.8 fL Mean Corpuscular Hemoglobin 32.2 pg Mean Corpuscular Hemoglobin Concent 32.9 g/dl RDW Standard Deviation 56.7 fL RDW Coefficient of Variation 16.3 % Platelet Count 135 K/uL Mean Platelet Volume 9.7 fL Prothrombin Time 13.8 SECONDS Prothromb Time International Ratio 1.3 Telemetry reviewed: V pacing, underlying AF Assessment and Plan #1. Shortness of breath: Although he does not have a lot of edema and his x-ray does not show a lot of congestive heart failure I suspect his symptoms were due to heart failure and he has responded to diuresis. I would send him home on oral bumex 2 mg BID with a prn additional 2 mg daily for increased fluid. I counseled him on fluid restriction as well. #2. Biventricular ICD: His left ventricular lead is not functioning properly and therefore he is only right ventricular pacing. I think he did better with biventricular pacing, unfortunately his left ventricular lead is not working and I think it is a lead issue. 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 He probably will need a lead replacement which I will schedule for next . I will have the office contact him with details. #3. Atrial fibrillation: He needs anticoagulation, but I would not start Warfarin now with this procedure next week. I will have samples of Eliquis 5 mg BID for him at the office at discharge and he can pick them up. Thank you for allowing me to participate in his care.
[2017-10-30] MEDS ORDERED: APIX1TAB3 PO (16:25)
--- NOTE | 2017-10-30 16:27 | Discharge Instructions ---
Discharge Instructions Date of Service Oct 30, 2017. Admission Reason for Admission: Chf Exacerbation Discharge Discharge Diagnosis / Problem: Heat Failure, pulmonary edema (fluid on lungs) Discharge Goals Goal(s): Improve disease control Activity Recommendations Activity Limitations: resume your previous activity . Instructions / Follow-Up Instructions / Follow-Up Call your Primary Care doctor if any of the following symptoms or problems start or get worse: * Shortness of breath or difficulty breathing * Wake up at night short of breath * Chest pain * Cough * Swelling of your hands, feet, or legs * More fatigued or tired with your normal activity * Palpitations - sudden fast heart beats WEIGHT * Weigh yourself every morning after using the bathroom. * Use the same scale. * Wear the same amount of clothing. * Write your weight down on a chart. * Call your Primary Care doctor if you gain more than 2-3 pounds in 1-2 days. MEDICATIONS * Use this discharge instruction sheet for medication instructions. * Take your medications at the time your doctor ordered. * Do not skip a dose of your medicines. * If you miss a dose of medicine, take it as soon as possible, but DO NOT DOUBLE A DOSE. * Read your medicine information when you get home. * Know all of the side effects of your medicine. If in doubt, ask your pharmacist * Call your Primary Care doctor's office if you have any side effects. * Be sure all of your doctors know what medicine and herbs you take (including cold, flu, and herbal medicine). Take the following with you to your follow-up doctor appointments: * Weight Chart * Medication List * List of questions Do not drink excessive alcohol, beer or wine. Current Hospital Diet Patient's current hospital diet: AHA Diet (Heart Healthy), Low Sodium Diet (2gm Na), Renal Diet, Diabetes Type 2 Diet Discharge Diet Recommended Diet: AHA Diet (Heart Healthy), Low Sodium Diet (2gm Na), Diabetes Type 2 Diet, Renal Diet Pending Studies Studies pending at discharge: no Medical Emergencies . Who to Call and When: Call 911 or go to the Emergency Room if: * If at any time you feel your situation is an emergency * You have tightness or pain in your chest that does not go away with rest or Nitroglycerin * You are very short of breath even with rest . Non-Emergent Contact Non-Emergency issues call your: Pediatric Nephrologist Contact Number: [phone] . . "Provider Documentation" section prepared by Malvin Rodriguez. . VTE Core Measure Inpt VTE Proph given/why not?: Other Anticoagulation
[2017-10-30] MEDS ORDERED: APIXABAN 2.5 MG TAB PO STA (16:29)
--- NOTE | 2017-10-31 06:57 | Discharge Summary ---
Discharge Summary Date of Service Oct 31, 2017. Discharge Summary Admission Date: Oct 29, 2017 at 00:37 Discharge Date: Oct 30, 2017 Immunizations: Have You Had Influenza Vaccine: No Influenza Vaccine Date: Jul 15, 2010 History of Tetanus Vaccine?: Yes Tetanus Immunization Date: Jul 15, 2010 History of Pneumococcal: Yes Pneumococcal Date: March 03, 2009 History of Hepatitis B Vaccine: No Hospital Course This includes examination of the patient, discharge planning, medication reconciliation, and communication with other providers. Discharge Instructions Please refer to the electronic Patient Visit Report (Discharge Instructions) for additional information.
[2017-11-01] MEDS ORDERED: METOLAZONE 2.5 MG TAB PO SCH (09:00)
== END 2017-10-30 17:45 | disposition home or self-care (01) ==
LOC: C.EDB 16:44 → C.MED 10-29 00:37 → ENRESERV 10-29 01:01
PROVIDERS: ADMIT Internal Medicine; ATTEND Family Medicine
DX: I50.43 Acute on chronic combined systolic (congestive) and diastolic (congestive) heart failure (principal); J96.01 Acute respiratory failure with hypoxia; N17.9 Acute kidney failure, unspecified; I48.2 Chronic atrial fibrillation; N18.3 Chronic kidney disease, stage 3 (moderate); E78.5 Hyperlipidemia, unspecified; E78.00 Pure hypercholesterolemia, unspecified; E11.9 Type 2 diabetes mellitus without complications; E03.9 Hypothyroidism, unspecified; I25.10 Atherosclerotic heart disease of native coronary artery without angina pectoris; K21.9 Gastro-esophageal reflux disease without esophagitis; M10.9 Gout, unspecified; G89.29 Other chronic pain; Z79.01 Long term (current) use of anticoagulants; Z79.4 Long term (current) use of insulin; Z87.442 Personal history of urinary calculi; Z95.0 Presence of cardiac pacemaker; Z83.3 Family history of diabetes mellitus; Z82.49 Family history of ischemic heart disease and other diseases of the circulatory system; Z84.1 Family history of disorders of kidney and ureter

== ENCOUNTER 2017-11-05 07:45 | Observation (INO) | payer OTHER ==
[~2017-11-05] VITALS: Ht 172.7 cm; Wt 94.3 kg
[2017-11-05] VITALS (10 sets, daily range): BP systolic 98–133; BP diastolic 53–69; PULSE 69–79; TEMP 36.4–37.4; O2SAT 88–96; Ht 172.7 cm; Wt 94.3 kg
[~2017-11-05 07:45] MED LIST changes: +APIX1TAB3 PO; -AZIT-57 PO; -CALC0.2510 PO; +CALC0.5C PO; +CEFAZOLIN 1000MG IV PUSH 5 ML IV SCH; +CEFAZOLIN 2000MG IV PUSH 10 ML IV SCH; +COMPOUND MEDICATION; +DICL1GEL12 TOP; +FLUO-245 TOP; +INSDGIPEN SC; +IPRA1AER2 INH; +LACTATED RINGER'S 1000ML IV SCH; +NVLGI/PEN SC; +OMEP20CA9 PO; -POTA1POW PO; +POTA20TA16 PO; -WARF5TAB90 PO; +ZOLP5TAB PO
[2017-11-05] MEDS ORDERED: LIDOCAINE HCL 1% 20 ML VIAL ONE (08:29)
[2017-11-05] MEDS ORDERED: BACITRACIN OINT 0.9 GM PKT ONE (08:30)
[2017-11-05] MEDS ORDERED: BACITRACIN 50000 UNIT VIAL ONE (08:30)
[2017-11-05 08:59] LABS: INR 1.1 (0.9-1.1)
--- NOTE | 2017-11-05 09:00 | History & Physical Bridge Note ---
H&P Re-Evaluation Bridge Note: I have examined the patient, reviewed the History & Physical and in the interval since the performance of the History & Physical I have noted the following changes of clinical significance: No changes noted. I reviewed the indications, procedure, risks and alternatives with the patient, his and his granddaughter were present in the room. They understand and he agrees to proceed. Consent obtained. I also reviewed the indications and risks of conscious sedation with them, they understand and he agrees. Sedation consent obtained.
--- NOTE | 2017-11-05 09:01 | Pre Sedation Assessment ---
Pre Sedation Assessment General Date of Sedation: Nov 05, 2017. Vital Signs Past 12 Hours Date Time Temp Pulse Resp B/P (MAP) Pulse Ox O2 Delivery O2 Flow Rate FiO2 11/05/17 08:26 36.4 79 18 107/69 (82) 92 Room Air Review Cardiovascular: regular rate, rhythm, no murmur Lungs: lungs clear Pre-Sedation Airway Assessment Smoking Status: Never Smoker Hx of Sleep Apnea: No Hx of difficult intubation: No Short Thick Neck: No Thyro-mental Distance: > 3 Finger Breadths Mallampati Classification: Class III ASA Classification: Class III NPO Status Date of Last Intake of Fluids: Nov 04, 2017 Time of Last Intake of Fluids: 0 Date of Last Intake of Solids: Nov 04, 2017 Time of Last Intake of Solids: 1900 Procedure Planning Contraindications for Sedation: None Current Medications Reviewed: Yes Notes The planned sedation has been discussed with the patient. Informed Consent was obtained. I have identified the patient, determined the appropriateness of sedation and have assessed the patient immediately prior to the procedure. All medicine(s) and interventions are by my order.
[2017-11-05] MEDS ORDERED: FENTANYL CITRATE INJ 50 MCG/1 ML 2 ML VIAL ONE ×2 (09:17→10:19)
[2017-11-05] MEDS ORDERED: MIDAZOLAM HCL 5 MG/ML 1 ML VIAL ONE ×2 (09:17→10:19)
--- NOTE | 2017-11-05 11:27 | [facility] Operative Report ---
Operative Report Operative Date Nov 05, 2017. Pre-Operative Diagnosis Left ventricular lead malfunction Post-Operative Diagnosis same Procedure(s) Performed Left ventricular lead implantation Old left ventricular lead removal Surgeon Dr. Anderson Clinical Application Specialist Surgeon(s) none Estimated Blood Loss 30 cc Findings All conductors in the old left ventricular lead had open impedances, there was an area around the vicinity of the left clavicle which appeared to have conductor failure visually after the lead was removed, although the insulation was intact. The new lead was placed in a different course. Specimens Old left ventricular lead, return to [employer] for analysis Anesthesia local with sedation Complication(s) None Disposition PCU Description of Procedure After obtaining informed consent for the procedure, the patient was brought to the laboratory and prepped and draped in the standard sterile manner. The left prepectoral region was anesthetized with 1% lidocaine local anesthetic and left axillary venipuncture was performed by percutaneous technique and a guidewire placed through the left subclavian vein into the superior vena cava. The area was further infiltrated with 1% lidocaine local anesthetic and a 6 cm incision was made through the old implant scar and carried down to the ICD. The ICD pocket was removed from the pocket and a bacitracin-soaked sponge (50,000 units in 50 cc normal saline solution) was placed in the pocket. The left ventricular lead was removed from the header (the other leads remained in the header) and tested using an external system. All conductors appeared to be opened ( fractured conductors). A 9 [place] Medtronic lead introducer dilator was placed over the guidewire into the left subclavian vein, the short guidewire was exchanged for a long [place] guidewire and the dilator and guidewire were removed. A Michell coronary sinus sheath was advanced in position in the right atrium. Using the curved obturator this sheath was positioned near the coronary sinus os, using the old LV lead as a visual reference. Using the Michell guidewire coronary sinus access was obtained without the use of x-ray dye and the system was advanced into the coronary sinus. The obturator was removed and a 0.014 inch guidewire was advanced into the same posterior lateral branch that the old lead was in, based on the prior angiogram from his initial implant there were no other adequate vessels. A quadripolar coronary sinus catheter was advanced over the guidewire into good distal position. The left ventricular pacing threshold was evaluated in various configurations, as recorded on the implant data sheet. Diaphragmatic pacing was evaluated at a 10 V output, as indicated on the data sheet. Once this lead was in position the old left ventricular lead was dissected free of tissue, the sutures were cut holding the sewing collar to the pectoralis fascia and using gentle traction and the left ventricular lead was easily removed. This will be [facility]. The the introducer system was removed from the new left ventricular lead and the lead was attached to the anterior pectoral fascia using 2 sutures of 2-0 silk around the lead collar. The lead was placed back into the port of the old ICD generator. The bacitracin-soaked sponge was removed from the pocket, hemostasis was obtained, the ICD was placed in the pocket with the leads coiled beneath it. The incision was closed with a running double subcutaneous closure of 3-0 V- Lock absorbable suture, followed by running subcuticular skin closure of 4-0 V- Lock absorbable suture. Bacitracin ointment was placed on the incision and a pressure dressing applied. I attest to the content of the Intraoperative Record and any orders documented therein. Any exceptions are noted below.
[2017-11-05] MEDS ORDERED: IPRATROPIUM BROMIDE/ALBUTEROL respimat INH INH PRN (11:30)
[2017-11-05] MEDS ORDERED: ACETAMINOPHEN 325 MG TAB PO PRN (11:30)
[2017-11-05] MEDS ORDERED: TRAZODONE HCL 50 MG TAB PO PRN (11:30)
[2017-11-05] MEDS ORDERED: KETOROLAC TROMETHAMINE 10 MG TAB PO PRN (11:30)
[2017-11-05] MEDS ORDERED: MECLIZINE HCL 25 MG TAB PO PRN (11:30)
[2017-11-05] MEDS ORDERED: NITROGLYCERIN 0.4 MG SL PER TAB CHARGE UT PRN (11:30)
[2017-11-05] MEDS ORDERED: ZOLPIDEM TARTRATE 5 MG TAB PO PRN (11:30)
--- NOTE | 2017-11-05 11:33 | Post Sedation Assessment ---
Post Sedation Assessment General Date of Sedation Nov 05, 2017. Vital Signs: Vital Signs Past 12 Hours Date Time Temp Pulse Resp B/P (MAP) Pulse Ox O2 Delivery O2 Flow Rate FiO2 11/05/17 11:10 71 16 120/80 (93) 95 Room Air 11/05/17 11:00 74 16 127/80 (96) 95 Room Air 11/05/17 08:26 36.4 79 18 107/69 (82) 92 Room Air Post Procedure Recovery Score Activity: (2) Moves 4 extremities * Respiration: (2) Deep breath/cough Circulation: (2) +/-20% PreAnes Value Consciousness: (2) Fully Awake Oxygen Saturation: (2) > 92% On Room Air Post Anesthesia Score: 10 Discharge Sedation Level of Care: Fast Track Phase II Post Sedation Plan On clinical assessment, the patient appears to have tolerated the sedation without complications. Patient is recovering as anticipated. Patient will continue to be monitored by nursing and may be discharged when sedation discharge criteria are met per below protocol. Upon Completions of procedure and additional 15 minutes continue every 5 minute vital signs and the P.A.R. score; then discharge to a Phase I or Fast Track to Phase II per the following guidelines: * Discharge Patient to appropriate Phase II area if PAR is 8 or greater or return to pre- procedure baseline. The post - procedure orders will be as directed. * If PAR score is less than 8 or not return to pre-procedure baseline then patient will follow Phase I monitoring till PAR is reached for Phase II. The Phase I may be done in procedure room or may call to secure a Phase I area. * If naloxone or flumazenil are used for reversal, hold in Phase I for an additional 60 -120 minutes before discharge to Phase II. Please call the Sedation Physician to re-evaluate and complete post-note for discharge to Phase II area. Do NOT discharge from procedure sedation or Phase 1 until post- sedation evaluation note is complete by procedure /sedation MD Sedation Discharge Instructions to be given to the patient at discharge to home.
[2017-11-05] MEDS ORDERED: IV FLUIDS COMPLETED PRN (12:00)
[2017-11-05] MEDS ORDERED: DEXTROSE 50% 50 ML SYR IV PRN (13:00)
[2017-11-05] MEDS ORDERED: GLUCAGON FOR INJ 1 MG VIAL SQ PRN (13:00)
[2017-11-05] MEDS ORDERED: GLUCOSE 40% GEL 15 GM TUBE PO PRN (13:00)
[2017-11-05] MEDS ORDERED: GLUCOSE 10 TABS/TUBE PO PRN (13:00)
[2017-11-05] MEDS: CEFAZOLIN IV 2,000 MG in SYRINGE 0 ML IV SCH ×2 (13:45→22:05)
[2017-11-05] MEDS: TRAMADOL HCL 50 MG TAB PO PRN (13:47)
[2017-11-05] MEDS: GABAPENTIN 100 MG CAP PO SCH ×2 (13:47→20:48)
[2017-11-05] MEDS ORDERED: PHARMACY GLYCEMIC MGMT CONSULT PRN (16:08)
--- NOTE | 2017-11-05 16:16 | Pharmacy Progress Note ---
Glycemic Control Intl Consult Date of Service Nov 05, 2017. Scope Glycemic Pharmacist consulted by Dr Anderson on 11/05/2017 for glycemic control and to write orders per [facility] inpatient glycemic control protocol Objective Weight (Kilograms): 94.600 Accuchecks BSG (last 24hrs): Test 11/05/17 08:18 Bedside Glucose 121 mg/dl (70-99) Recent Pertinent Medications Outpatient Anti-diabetic Regimen: * Lantus 35 units at bedtime plus Novolog with meals, up to 20 units * A1c = 7.3 % 07/29/17 Risk Factors for Insulin Resistance: * Recent Surgery: POD 0 for lead change * Diet: AHA, T2DM Assessment & Plan ASSESSMENT: * Mr Davidson is a 77 y/o M who presents for a lead change. He has what appears to be well controlled diabetes as an outpatient. He took his full dose of Lantus yesterday and around 12 units of Novolog for breakfast. Estimate takes around 70-80 units of insulin per day. * Will reduce Lantus by 15% as patient is admitted. Utilize weight based stress of 2 for Novolog parameters which correlates with the patients home insulin dose per day. Order HbA1C. PLAN FOR INPATIENT GLYCEMIC CONTROL: * Basal insulin with LANTUS 30 units SQ HS * Correctional Insulin with NOVOLOG per scale ACHS or Q6hrs while NPO * Goal Range: Low 110 mg/dL - High 140 mg/dL * Correction Factor: 25 mg/dL/unit * Nutritional / Prandial insulin per carb ratio of 1 unit per 8 grams CHO consumed * Please note that the plan above was derived based on current level of insulin resistance and hospital stress. These recommendations are appropriate for inpatient admission only. Plan of care upon discharge will need to be reassessed to avoid potential outpatient hypo/hyperglycemia. Thank you.
[2017-11-05] MEDS ORDERED: INSULIN ASPART 100 UNITS/ML 3 ML PEN SC SCH ×2 (16:45)
[2017-11-05] MEDS: CARVEDILOL 6.25 MG TAB PO SCH (17:11)
[2017-11-05] MEDS: BUMETANIDE 1 MG TAB PO SCH (17:11)
[2017-11-05] MEDS: INSULIN ASPART 100 UNITS/ML 3 ML PEN SC SCH ×2 (17:15→20:47)
[2017-11-05] MEDS: POTASSIUM CHLORIDE 20 MEQ TABCR PO SCH (19:43)
[2017-11-05] MEDS: PANTOprazole SOD 40 MG TAB PO SCH (20:48)
[2017-11-05] MEDS: ALLOPURINOL 100 MG TAB PO SCH (20:49)
[2017-11-05] MEDS ORDERED: SIMVASTATIN 40 MG TAB PO SCH (21:00)
[2017-11-05] MEDS ORDERED: INSULIN GLARGINE SOLOSTAR 100 UNITS/ML 3 ML PEN SC SCH ×2 (21:00)
[2017-11-06 03:35] VITALS: BP 91/52; PULSE 71; TEMP 37.2; O2SAT 92
[2017-11-06] MEDS ORDERED: LEVOTHYROXINE 75 MCG TAB PO SCH (06:00)
[2017-11-06] MEDS: CEFAZOLIN IV 2,000 MG in SYRINGE 0 ML IV SCH (06:29)
--- NOTE | 2017-11-06 07:02 | DIAGNOSTIC IMAGING REPORT ---
CHEST 2 VIEWS ROUTINE CLINICAL HISTORY: Pacemaker placement. COMPARISON STUDY: 10/28/2017 FINDINGS: There is a left subclavian pacer/defibrillator present. There is no pneumothorax. The heart is enlarged. There is mild pulmonary vascular congestion. A trace right pleural effusion is suspected.[ IMPRESSION: 1. No evidence of pneumothorax 2. Cardiomegaly and mild pulmonary vascular congestion 3. Trace right pleural effusion Electronically signed by: Anton Collazo M.D. 11/06/2017 7:01 AM Dictated Date/Time: 11/06/2017 7:00 AM
[2017-11-06 07:30] LABS: CALCIUM 9.1 mg/dl (8.5-10.1); CREATININE 2.16 mg/dl (0.60-1.40)
[2017-11-06] MEDS: CARVEDILOL 6.25 MG TAB PO SCH ×2 (07:30→08:13)
[2017-11-06 07:49] LABS: HEMOGLOBIN A1C 6.6 % (4.5-5.6)
[2017-11-06] MEDS: POTASSIUM CHLORIDE 20 MEQ TABCR PO SCH (08:15)
[2017-11-06] MEDS: GABAPENTIN 100 MG CAP PO SCH ×2 (08:16→13:44)
[2017-11-06] MEDS: PANTOprazole SOD 40 MG TAB PO SCH (08:16)
[2017-11-06] MEDS: BUMETANIDE 1 MG TAB PO SCH (08:17)
[2017-11-06] MEDS: ALLOPURINOL 100 MG TAB PO SCH (08:17)
[2017-11-06] MEDS: INSULIN ASPART 100 UNITS/ML 3 ML PEN SC SCH (08:22)
--- NOTE | 2017-11-06 08:28 | Cardiology Follow-Up ---
Subjective Date of Service: Nov 06, 2017. Social History Smoking Status: Never Smoker History of Alcohol Use: No Review of Systems Respiratory: + shortness of breath, + dyspnea on exertion Cardiac: + see HPI Objective Vital Signs Past 12 Hours Date Time Temp Pulse Resp B/P (MAP) Pulse Ox O2 Delivery O2 Flow Rate FiO2 11/06/17 04:00 Nasal Cannula 2.0 11/06/17 03:35 37.2 71 18 91/52 (65) 92 Nasal Cannula 2.0 11/05/17 23:59 Nasal Cannula 2.0 11/05/17 23:59 37.4 70 18 98/53 (68) 92 Nasal Cannula 2.0 Last Recorded Weight-Kilograms: 94.300 Physical Exam The incision looks good, minor bleeding, no swelling Data Laboratory Results: Last 24 Hours Test 11/05/17 08:38 11/05/17 15:58 11/05/17 20:01 11/06/17 06:24 Prothrombin Time 11.6 SECONDS Prothromb Time International Ratio 1.1 Bedside Glucose 166 mg/dl 189 mg/dl Sodium Level 133 mmol/L Potassium Level 4.0 mmol/L Chloride Level 94 mmol/L Carbon Dioxide Level 33 mmol/L Anion Gap 6.0 mmol/L Blood Urea Nitrogen 47 mg/dl Creatinine 2.16 mg/dl Est Creatinine Clear Calc Drug Dose 32.9 ml/min Estimated GFR () 33.5 Estimated GFR (Non- 28.9 BUN/Creatinine Ratio 22.0 Random Glucose 151 mg/dl Estimated Average Glucose 143 mg/dl Hemoglobin A1c 6.6 % Calcium Level 9.1 mg/dl Test 11/06/17 06:34 Bedside Glucose 179 mg/dl Imaging: CXR no pneumo EKG: Telemetry reviewed: ICD Evaluation: Stable Assessment and Plan Stable for discharge
--- NOTE | 2017-11-06 08:36 | Discharge Instructions ---
Discharge Instructions Date of Service Nov 06, 2017. Admission Reason for Admission: Lv Lead Malfunction Discharge Discharge Diagnosis / Problem: left ventricular lead replacement Discharge Goals Goal(s): Improve disease control Activity Recommendations Activity Limitations: resume your previous activity . Instructions / Follow-Up Instructions / Follow-Up ACTIVITY RECOMMENDATIONS: * Do not raise affected arm over head for 2 weeks. SPECIAL CARE INSTRUCTIONS: * If bleeding occurs, apply direct pressure to area for 5 minutes. * Call your doctor if you have severe pain, fever, drainage or bleeding at site. * Keep dressing on and dry for 48 hours then remove. * Keep any scheduled doctor's appointment. * Implant Card - hand held device with website information given. SKIN IRRITATION: * You may experience some redness and/or swelling in the area where radiation was administered. If any skin irritation occurs, please contact your family physician. FOLLOW UP VISIT: Dr. Anderson's office, 11/09/2017, 10:00 AM Current Hospital Diet Patient's current hospital diet: AHA Diet (Heart Healthy), Diabetes Type 2 Diet Discharge Diet Recommended Diet: AHA Diet (Heart Healthy) Procedures Procedures Performed: Left ventricular lead replacement Pending Studies Studies pending at discharge: no Laboratory Results Hemoglobin A1c Test 11/06/17 06:24 Range/Units Estimated Average Glucose 143 mg/dl Hemoglobin A1c 6.6 H 4.5-5.6 % Medical Emergencies . Who to Call and When: Medical Emergencies: If at any time you feel your situation is an emergency, please call 911 immediately. . Non-Emergent Contact Non-Emergency issues call your: Primary Care Provider . . "Provider Documentation" section prepared by Pola Anderson. . VTE Core Measure Inpt VTE Proph given/why not?: Treatment not indicated
[2017-11-06 08:52] VITALS: BP 99/52; PULSE 70; TEMP 37.4; O2SAT 93
[2017-11-06] MEDS ORDERED: SPIRONOLACTONE 25 MG TAB PO SCH (09:00)
[2017-11-06] MEDS ORDERED: ISOSORBIDE MONONITRATE 60 MG TABCR PO SCH (09:00)
[2017-11-06] MEDS ORDERED: AMIODARONE 200 MG TAB PO SCH (09:00)
--- NOTE | 2017-11-06 10:02 | Discharge Summary ---
Discharge Summary Admission Date: Nov 05, 2017 at 11:33 Discharge Date: Nov 06, 2017 Discharge Disposition: Home Primary Diagnosis: Left ventricular lead malfunction Secondary Diagnoses/Problems: Medical Problems: (1) Acute renal insufficiency Status: Acute (2) Cellulitis, abdominal wall Status: Acute (3) Chest pain Status: Acute (4) Chronic renal insufficiency Status: Acute (5) Dehydration Status: Acute (6) Dyspnea Status: Acute (7) Elevated d-dimer Status: Acute (8) Elevated troponin Status: Acute (9) Elevated troponin Status: Acute (10) Elevated troponin Status: Acute (11) Fever Status: Acute (12) Headache Status: Acute (13) Headache Status: Acute (14) Hypertension Status: Acute (15) Hypoxia Status: Acute (16) Left sided chest pain Status: Acute (17) Lightheadedness Status: Acute (18) Pacemaker malfunction Status: Acute (19) Pneumonia Status: Acute (20) Pneumonia Status: Acute (21) Precordial chest pain Status: Acute (22) Renal insufficiency Status: Acute (23) Supratherapeutic INR Status: Acute (24) Surgical wound hemorrhage after dental procedure Status: Acute (25) Syncope Status: Acute (26) Vertigo Status: Acute Procedures: Left ventricular lead implantation Old left ventricular lead removal Discharge Instructions Last Recorded Wt (Kilograms): 94.300 Activity Recommendations: limitations as noted below Diet At Discharge: low sodium, low cholesterol, diabetes diet Allergies: Coded Allergies: No Known Allergies (Verified , 09/08/17) Additional Instructions: ACTIVITY RECOMMENDATIONS: * Do not raise affected arm over head for 2 weeks. SPECIAL CARE INSTRUCTIONS: * If bleeding occurs, apply direct pressure to area for 5 minutes. * Call your doctor if you have severe pain, fever, drainage or bleeding at site. * Keep dressing on and dry for 48 hours then remove. * Keep any scheduled doctor's appointment. * Implant Card - hand held device with website information given. SKIN IRRITATION: * You may experience some redness and/or swelling in the area where radiation was administered. If any skin irritation occurs, please contact your family physician. FOLLOW UP VISIT: Dr. Anderson's office, 11/09/2017, 10:00 AM Special Care: Call your doctor if: * Temperature above 101 degrees * Pain not relieved by pain medicine ordered * There is increased drainage or redness from any incision * You have any unanswered questions or concerns. Avoid all tobacco products. If you need help to stop smoking, call [place]'s FREE QUITLINE at . This is a free call. Admission HPI He has been feeling well other than some diaphragmatic pacing, that is annoying but not causing much discomfort for him. He noticed musical tones coming from his ICD and therefore stopped in the office to have it evaluated. He reports no ICD shocks, has stable dyspnea on exertion and no other complaints. He is here with a family member. Last time I saw him in July was for the same situation, with his ICD playing alert tones. Evaluation of his ICD at that time demonstrated that the alert was sent for a high left ventricular pacing impedance. Further investigation was confusing, he had greater than 3000 ohms on the LV 1 and LV 4 electrode but not on the LV 2 and LV 3 electrodes. He was programmed LV 1 to RV coil. We were able to reprogram to LV 2 to LV 3, however he had diaphragmatic pacing at higher outputs but with excellent thresholds we could reduce the output to below his diaphragmatic pacing threshold. The reason for the high impedances remains unclear. Admission Physical Exam Additional Comments: Constitutional: Alert, cooperative and in no distress. HEENT: Unremarkable Neck: No jugular venous distention, carotid pulses are normal and equal bilaterally without bruits. Pulmonary: Bilateral basilar rales. Cardiac: Regular rhythm with no murmur, gallop or rub. Abdomen: Soft, nontender with normal bowel sounds. Extremities: No edema. Distal pulses intact. Neurologic: No focal findings. Gait is steady. Skin: The device site is well-healed without erythema, swelling or tenderness. No rash, ecchymoses or petechiae. Hospital Course Patient is a 77-year-old male with a cardiomyopathy and chronic systolic CHF S/ P biventricular ICD who was found to have a left ventricular lead malfunction. He therefore underwent old left ventricular lead removal and implantation of a new lead on 11/05/[address] Anderson. He tolerated the procedure well. Device check the following day showed excellent sensing and pacing characteristics. CXR showed good lead placement with no pneumothorax. He was deemed stable for discharge home on 11/06/17. He will have follow-up in 3 days for incision check and 1 month for device check. Total time spent on discharge = This includes examination of the patient, discharge planning, medication reconciliation, and communication with other providers.
[2017-11-06] MEDS ORDERED: NURSING VERBAL MED ORDER ONE (10:30)
[2017-11-06] MEDS ORDERED: POLYETHYLENE (MIRALAX) 17 GM PACK PO ONE (10:30)
[2017-11-06 12:40] VITALS: BP 101/46; PULSE 70; TEMP 36.8; O2SAT 93
[2017-11-06] MEDS: TRAMADOL HCL 50 MG TAB PO PRN (13:45)
[2017-11-06 13:49] VITALS: BP 101/46; PULSE 70; TEMP 36.8; O2SAT 93
[2017-11-06] MEDS ORDERED: INSULIN GLARGINE SOLOSTAR 100 UNITS/ML 3 ML PEN SC SCH (21:00)
[2017-11-08] MEDS ORDERED: CEPH-571 PO ×2 (12:27)
== END 2017-11-06 14:07 | disposition home or self-care (01) ==
LOC: C.ACU 07:45 → ENRESERV 09:52 → C.2E 11:33 → INTOOBSV 11:33
PROVIDERS: ADMIT Internal Medicine Cardiovascular Disease; ATTEND Internal Medicine Cardiovascular Disease
DX: T82.118A Breakdown (mechanical) of other cardiac electronic device, initial encounter (principal); Y71.2 Prosthetic and other implants, materials and accessory cardiovascular devices associated with adverse incidents; I48.2 Chronic atrial fibrillation; I25.5 Ischemic cardiomyopathy; I50.22 Chronic systolic (congestive) heart failure; K21.9 Gastro-esophageal reflux disease without esophagitis; M19.90 Unspecified osteoarthritis, unspecified site; N40.0 Benign prostatic hyperplasia without lower urinary tract symptoms; N18.4 Chronic kidney disease, stage 4 (severe); E11.9 Type 2 diabetes mellitus without complications; E78.5 Hyperlipidemia, unspecified; I12.9 Hypertensive chronic kidney disease with stage 1 through stage 4 chronic kidney disease, or unspecified chronic kidney disease; E03.9 Hypothyroidism, unspecified; Z79.01 Long term (current) use of anticoagulants; Z80.3 Family history of malignant neoplasm of breast; Z82.49 Family history of ischemic heart disease and other diseases of the circulatory system; Z83.3 Family history of diabetes mellitus; Z79.4 Long term (current) use of insulin; Z87.442 Personal history of urinary calculi

== ENCOUNTER 2017-11-07 19:41 | Observation (INO) | payer OTHER ==
[~2017-11-07] VITALS: Ht 172.7 cm; Wt 94.9 kg
[~2017-11-07 19:41] MED LIST changes: -CEFAZOLIN 1000MG IV PUSH 5 ML IV SCH; -CEFAZOLIN 2000MG IV PUSH 10 ML IV SCH; -LACTATED RINGER'S 1000ML IV SCH
--- NOTE | 2017-11-07 20:29 | EMERGENCY ROOM VISIT NOTE ---
History Report prepared by Stephanie: Jose Mckeon Under the Supervision of: Dr. Nino Contreras M.D. First contact with patient: 20:09 Chief Complaint: BLEEDING Stated Complaint: BLEEDING FROM SURGERY Nursing Triage Summary: PStient recently had pace maker placed, bleeding from incision History of Present Illness The patient is a 77 year old male who presents to the Emergency Room with complaints of constant bleeding that started at 1600. The patient is accompanied by his who states that the patient recently had a pacemaker placed. She states that today, the patient coughed and started bleeding from the pacemaker site around 1600. His reports that the patient has been consistently bleeding through dressings and his clothes. She states that the patient also developed a bruise at the time that has been worsening throughout the day. His states that the patient used to be on Coumadin and was switched to Eloquis in the past. She denies that the patient had any trauma to the chest. Source of History: spouse/significant other Onset: 1600 Position: chest Quality: other (bleeding) Timing: constant Modifying Factors (Relieving): other (dressing) Review of Systems See HPI for pertinent positives and negatives. A total of ten systems were reviewed and were otherwise negative. 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 (17) Nephrolithiasis (18) Pacemaker lead fracture (19) Thyroid dysfunction (20) Two stents Family History Diabetes mellitus FH: cancer Heart disease Hypertension Kidney disease Kidney stones Social History Smoking Status: Never Smoker Alcohol Use: none Drug Use: none Marital Status: Housing Status: lives with family Occupation Status: retired Current/Historical Medications Scheduled Allopurinol (Zyloprim), 100 MG PO BID Amiodarone Hcl (Cordarone), 200 MG PO DAILY Apixaban (Eliquis), 5 MG PO BID Bumetanide (Bumex), 2 MG PO BID Calcitriol (Calcitriol), 0.5 MCG PO 3XWK Carvedilol (Coreg), 6.25 MG PO BIDM Fluocinonide Emulsified Base (Fluocinonide Emulsified), 1 APPLN TOP BID Gabapentin (Neurontin), 100 MG PO TID Insulin Aspart (Novolog Flexpen), 20 UNITS SC TIDM Insulin Glargine (Lantus Solostar), 35 UNITS SC HS Isosorbide Mononitrate Ext Rel (Imdur Ext Rel), 60 MG PO QAM Levothyroxine Sodium (Levothyroxine Sodium), 75 MCG PO DAILY Metolazone (Zaroxolyn), 2.5 MG PO 2XWK Omeprazole (Prilosec), 20 MG PO BID Potassium Ext Rel (Klor-Con), 40 MEQ PO BID Simvastatin (Zocor), 40 MG PO HS Spironolactone (Aldactone), 25 MG PO QAM Scheduled PRN Diclofenac Sodium (Topical) (Voltaren 1% Top Gel), 1 APPLN TOP QID PRN for Pain Ipratropium-Albuterol (Combivent Respimat), 1 PUFFS INH Q6 PRN for SOB/Wheezing Meclizine Hcl (Meclizine Hcl), 25 MG PO TID PRN for Nausea Nitroglycerin (Nitrostat), 0.4 MG UT UD PRN for Chest Pain Tramadol (Ultram), 50 MG PO Q8H PRN for Pain Trazodone Hcl (Trazodone), 25-50 MG PO HS PRN for Sleep Zolpidem Tartrate (Ambien), 1.25-2.5 MG PO HS PRN for Insomnia [Compound Medication], 1 APPLN UNKNOWN TID PRN for Pain Allergies Coded Allergies: No Known Allergies (Verified , 11/07/17) Physical Exam Vital Signs Date Time Temp Pulse Resp B/P (MAP) Pulse Ox O2 Delivery O2 Flow Rate FiO2 11/07/17 21:41 71 20 11/07/17 21:33 106/61 11/07/17 21:30 11/07/17 21:11 70 20 11/07/17 21:00 107/66 11/07/17 20:41 69 21 11/07/17 20:34 72 11/07/17 20:30 106/62 11/07/17 19:43 36.6 72 18 119/74 96 Room Air Physical Exam HENT: Normocephalic, Atraumatic. Oropharynx unremarkable. EYES: Normal conjunctiva. Sclera non-icteric. PERRL bilaterally. EOMI bilaterally. NECK: Supple. No nuchal rigidity. FROM. No JVD. No C-spine tenderness. RESPIRATORY: Clear to auscultation. No wheezes, rhonchi or rales bilaterally. CARDIAC: Regular rate, normal rhythm. Extremities warm and well perfused. Equal palpable radial pulses to the bilateral upper extremities. Equal palpable DP pulses to the bilateral lower extremities. CHEST: Active oozing at pacemaker site. Large ecchymosis to the anterior chest wall. Dressing is saturated in blood. Once dressing was removed, the site was actively bleeding, but was controlled with pressure. ABDOMEN: Soft, non-distended. No tenderness to palpation. No rebound or guarding. No masses. Rovsig Negative. RECTAL: Deferred. MUSCULOSKELETAL: No joint edema. Range of motion all joints bilateral upper and bilateral lower extremities LOWER EXTREMITIES: Calves are equal size bilaterally and non-tender. No edema. No discoloration. NEURO: Normal sensorium. No sensory or motor deficits noted. No pronator drift. No facial droop. No dysarthria. SKIN: No rash or jaundice noted. Medical Decision & Procedures ER Provider Diagnostic Interpretation: X-ray: Per my interpretation, radiologist review. CHEST ONE VIEW PORTABLE CLINICAL HISTORY: post op bleeding from pacemaker site COMPARISON STUDY: 11/06/2017 FINDINGS: Patient is bipolar cardiac pacemaker/gallbladder is similar in location. Moderate cardiomegaly. Increased prominence of pulmonary vasculature is suggested a component of congestive failure. No evidence for pneumothorax. IMPRESSION: Mild congestive heart failure. Moderate cardiomegaly. Unchanged location of the permanent bipolar cardiac pacemaker leads. The above report was generated using voice recognition software. It may contain grammatical, syntax or spelling errors. Electronically signed by: Harjeet Tellez M.D. 11/07/2017 9:08 PM Dictated Date/Time: 11/07/2017 9:07 PM Laboratory Results 11/07/17 20:18 Red Blood Count 4.33, Mean Corpuscular Volume 97.2, Mean Corpuscular Hemoglobin 32.1, Mean Corpuscular Hemoglobin Concent 33.0, Mean Platelet Volume 10.1, Neutrophils (%) (Auto) 67.7, Lymphocytes (%) (Auto) 14.8, Monocytes (%) (Auto) 14.0, Eosinophils (%) (Auto) 2.8, Basophils (%) (Auto) 0.2, Neutrophils # (Auto ) 4.30, Lymphocytes # (Auto) 0.94, Monocytes # (Auto) 0.89, Eosinophils # (Auto ) 0.18, Basophils # (Auto) 0.01 11/07/17 20:18 Test 11/07/17 20:18 White Blood Count 6.24 K/uL (4.8-10.8) Red Blood Count 4.33 M/uL (4.7-6.1) Hemoglobin 13.9 g/dL (14.0-18.0) Hematocrit 42.1 % (42-52) Mean Corpuscular Volume 97.2 fL (80-100) Mean Corpuscular Hemoglobin 32.1 pg (25-34) Mean Corpuscular Hemoglobin Concent 33.0 g/dl (32-36) Platelet Count 108 K/uL (130-400) Mean Platelet Volume 10.1 fL (7.4-10.4) Neutrophils (%) (Auto) 67.7 % Lymphocytes (%) (Auto) 14.8 % Monocytes (%) (Auto) 14.0 % Eosinophils (%) (Auto) 2.8 % Basophils (%) (Auto) 0.2 % Neutrophils # (Auto) 4.30 K/uL (1.4-6.5) Lymphocytes # (Auto) 0.94 K/uL (1.2-3.4) Monocytes # (Auto) 0.89 K/uL (0.11-0.59) Eosinophils # (Auto) 0.18 K/uL (0-0.5) Basophils # (Auto) 0.01 K/uL (0-0.2) RDW Standard Deviation 56.5 fL (36.4-46.3) RDW Coefficient of Variation 15.7 % (11.5-14.5) Immature Granulocyte % (Auto) 0.5 % Immature Granulocyte # (Auto) 0.03 K/uL (0.00-0.02) Red Blood Cell Morphology Unremarkable Prothrombin Time 11.4 SECONDS (9.0-12.0) Prothromb Time International Ratio 1.1 (0.9-1.1) Activated Partial Thromboplast Time 28.7 SECONDS (21.0-31.0) Partial Thromboplastin Ratio 1.1 Anion Gap 7.0 mmol/L (3-11) Estimated GFR () 27.8 Estimated GFR (Non- 24.0 BUN/Creatinine Ratio 26.8 (10-20) Calcium Level 8.7 mg/dl (8.5-10.1) Troponin I 0.052 ng/ml (0-0.045) Laboratory results reviewed by me Medications Administered Medications (Trade) Dose Ordered Sig/[facility] Route Start Time Stop Time Status Last Admin Dose Admin Vancomycin HCl (Vancomycin 1gm/ 270ml Nss) 1 gm NOW STAT IV 11/07/17 22:08 11/07/17 22:10 DC 11/07/17 22:18 1 GM ECG Indication: other (bleeding) Rate (beats per minute): 70 Rhythm: other (ventricular paced) Findings: no acute ischemic change, no ectopy ED Course 2010: The patient was evaluated in room C09. A complete history and physical exam was performed. 2120: I discussed the patients case with Dr. Larios, [facility] Card[facility]. Dr. Dobbs stated that a pressure dressing to be placed over the continually oozing pacemaker site and the patient to be discharged home. I discussed with Dr. Duke that I was not comfortable with this and given that the patient is still on aliquots and still actively bleeding that I would prefer that the patient be placed in observation for serial hemoglobins and to be watched to make sure that the bleeding does not progress to hemorrhage. I also discussed with him the possibility that the fluid collection around the pacemaker. 2126: I reevaluated the patient and updated him on his results. I discussed the treatment plan, which he agrees to. The patient will be further evaluated. 2207: I discussed the patient's case with Dr. Orozco, [facility] Hospitalist. He understands the patient's condition and agrees to accept the patient. Serial hemoglobins will be conducted. I discussed with the hospitalists and we agreed to get a CAT scan of the patient's chest to rule out any sort of fluid collection around the pacemaker, or hematoma. They said they would follow-up on the results of this. The patient will be further evaluated.Ordered Vancomycin HCl 1 gm IV. Medical Decision I discussed the patients case with Dr. Larios [facility] Card[facility]. Dr. Larios stated that a pressure dressing to be placed over the continually oozing pacemaker site and the patient to be discharged home. I discussed with Dr. Larios that I was not comfortable with this and given that the patient is still on Eliquis and still actively bleeding that I would prefer that the patient be placed in observation for serial hemoglobins and to be watched to make sure that the bleeding does not progress to hemorrhage. I also discussed with him the possibility that the fluid collection around the pacemaker. I discussed the patient's case with Dr. Orozco [facility] Hospitalist. He understands the patient's condition and agrees to accept the patient. Serial hemoglobins will be conducted. I discussed with the hospitalists and we agreed to get a CAT scan of the patient's chest to rule out any sort of fluid collection around the pacemaker, or hematoma. They said they would follow-up on the results of this. The patient will be further evaluated.Ordered Vancomycin HCl 1 gm IV for possibly infected pacemaker site. Medication Reconcilliation Current Medication List: was personally reviewed by me Blood Pressure Screening Patient's blood pressure: Normal blood pressure Consults Time Called: 2120 Consulting Physician: Dr. Larios [facility] Returned Call: 2120 I discussed the patients case with Dr. Larios [facility]. Additional Consults: Time Called: 2155 Consulted Physician[facility] Returned Call: 2208 Additional Comments: I discussed the patient's case with Dr. Orozco [facility] Hospitalist. He understands the patient's condition and agrees to accept the patient. The patient will be further evaluated. Impression Primary Impression: Post-op bleeding Scribe Attestation The scribe's documentation has been prepared under my direction and personally reviewed by me in its entirety. I confirm that the note above accurately reflects all work, treatment, procedures, and medical decision making performed by me. The chart was completed utilizing [employer] voice recognition software. Grammatical errors, random word insertions, pronoun errors, and incomplete sentences are an occasional consequence of this system due to software limitations, ambient noise, and hardware issues. Any formal questions or concerns about the content, text, or information contained within the body of this dictation should be directly addressed to the physician for clarification. Departure Information Dispostion Being Evaluated By Hospitalist Referrals Nole Reid M.D. (PCP) Patient Instructions My [facility]
[2017-11-07 20:31] LABS: HEMATOCRIT 42.1 % (42-52); HEMOGLOBIN 13.9 g/dL (14.0-18.0); MEAN CELL VOLUME 97.2 fL (80-100); MEAN CORPUSCULAR HEMOGLOBIN 32.1 pg (25-34); RED CELL DISTRIBUTION WIDTH CV 15.7 % (11.5-14.5); RED CELL DISTRIBUTION WIDTH SD 56.5 fL (36.4-46.3); WHITE BLOOD COUNT 6.24 K/uL (4.8-10.8)
[2017-11-07 20:42] LABS: BASO % 0.2 %; BASO ABS # 0.01 K/uL (0-0.2); EOS % 2.8 %; EOS ABS # 0.18 K/uL (0-0.5); IG# 0.03 K/uL (0.00-0.02); LYMPH % 14.8 %; LYMPH ABS # 0.94 K/uL (1.2-3.4); MEAN PLATELET VOLUME 10.1 fL (7.4-10.4); MONO ABS # 0.89 K/uL (0.11-0.59); NEUT % 67.7 %; PLATELET COUNT 108 K/uL (130-400)
[2017-11-07 20:43] LABS: INR 1.1 (0.9-1.1); PTT PATIENT 28.7 SECONDS (21.0-31.0)
[2017-11-07 20:48] LABS: BLOOD UREA NITROGEN 68 mg/dl (7-18); CALCIUM 8.7 mg/dl (8.5-10.1); CARBON DIOXIDE 31 mmol/L (21-32); CREATININE 2.52 mg/dl (0.60-1.40); GLUCOSE 204 mg/dl (70-99); POTASSIUM 3.9 mmol/L (3.5-5.1); SODIUM 134 mmol/L (136-145)
--- NOTE | 2017-11-07 21:10 | DIAGNOSTIC IMAGING REPORT ---
CHEST ONE VIEW PORTABLE CLINICAL HISTORY: post op bleeding from pacemaker site COMPARISON STUDY: 11/06/2017 FINDINGS: Patient is bipolar cardiac pacemaker/gallbladder is similar in location. Moderate cardiomegaly. Increased prominence of pulmonary vasculature is suggested a component of congestive failure. No evidence for pneumothorax. IMPRESSION: Mild congestive heart failure. Moderate cardiomegaly. Unchanged location of the permanent bipolar cardiac pacemaker leads. The above report was generated using voice recognition software. It may contain grammatical, syntax or spelling errors. Electronically signed by: Harjeet Tellez M.D. 11/07/2017 9:08 PM Dictated Date/Time: 11/07/2017 9:07 PM
[2017-11-07] MEDS ORDERED: VANCOMYCIN 1GM/270ML NSS IV STA (22:08)
--- NOTE | 2017-11-07 22:46 | DIAGNOSTIC IMAGING REPORT ---
(CHEST) THORAX WITHOUT CT DOSE: 810.25 mGy.cm HISTORY: Pain. Discharge. r/o hematoma/abscess around recently placed pacemaker TECHNIQUE: Multiaxial CT images of the chest were performed without contrast. A dose lowering technique was utilized adhering to the principles of ALARA. COMPARISON: None. FINDINGS: There is a left anterior chest wall pacemaker. This has been recently placed. There is surrounding soft tissue and air component surrounding the battery pack. Dimensions are somewhat problematic given the artifact from the pacemaker Nevertheless, the edematous region is primarily superficial and superior to the pacemaker. This region measures approximate 4.5 x 4.0 cm with several air bubbles within the soft tissues. This is immediately anterior to the mid clavicle. This potentially represents a postprocedural hematoma, with a reason air bubbles most likely postprocedural although abscess is not excluded. Lungs are considered clear. There is no evidence of pneumothorax. Pacemaker leads appear to be intact. Slight bronchovascular prominence in both lung bases. Moderate cardiomegaly. No significant pericardial effusion. IMPRESSION: 1. Soft tissue edematous change versus hematoma surrounding the patient's cardiac pacemaker battery pack. 2. There is edematous change of the pectoralis musculature, with a more definitive 4.5 x 4.0 cm hematoma superficial and superior to the battery pack . 3. The hematoma contains several air bubbles which statistically are most likely on a post procedural bases, although is impossible to entirely exclude the possibility of an infected hematoma. 4. Enlargement of the pectoralis musculature would indicate edematous change of the muscle inferior to the battery pack although an additional well-defined hematoma just type process in that region is not felt to be present. 5. The lungs are clear with no evidence of pneumothorax. The above report was generated using voice recognition software. It may contain grammatical, syntax or spelling errors. Electronically signed by: Harjeet Tellez M.D. 11/07/2017 10:44 PM Dictated Date/Time: 11/07/2017 10:39 PM
--- NOTE | 2017-11-07 23:41 | History and Physical ---
History & Physical Date & Time of Service: Nov 07, 2017 at 23:41 Chief Complaint: Bleeding From Surgery Primary Care Physician: Noel Reid M.D. History of Present Illness Source: patient, family, spouse, hospital records The patient is a 77-year-old male who presents to the emergency room with complaints of bleeding around his pacemaker site that began after a cough around 1600 today. His pacemaker was placed during admission from October 29- by Dr. Anderson. He previously had been on warfarin, and that last admission was changed to Eliquis, and treatment of cardiac dysrhythmia. He has no other areas of bleeding, but does have several areas of bruising on his abdominal wall. Past Medical/Surgical History Medical Problems: (1) Arthritis Status: Chronic (2) CHF (congestive heart failure) Status: Chronic (3) Chronic renal insufficiency Status: Chronic (4) Diabetes mellitus Status: Chronic (5) Gastroesophageal reflux disease Status: Chronic (6) Heart disease Status: Chronic (7) Hernia of abdominal wall Status: Resolved (8) History of - hypertension Status: Chronic (9) Implantation of cardiac pacemaker Status: Resolved (10) Kidney stone Status: Resolved (11) Nephrolithiasis Status: Chronic (12) Thyroid dysfunction Status: Chronic (13) Two stents Status: Chronic Family History Diabetes mellitus FH: cancer Heart disease Hypertension Kidney disease Kidney stones Social History Smoking Status: Never Smoker Smokeless Tobacco Use: No Alcohol Use: none Drug Use: none Marital Status: Housing status: lives with family Occupational Status: retired Immunizations History of Influenza Vaccine: No Influenza Vaccine Date: Jul 15, 2010 History of Tetanus Vaccine?: Yes Tetanus Immunization Date: Jul 15, 2010 History of Pneumococcal: Yes Pneumococcal Date: March 03, 2009 History of Hepatitis B Vaccine: No Multi-Drug Resistant Organisms History of MDRO: No Allergies Coded Allergies: No Known Allergies (Verified , 11/07/17) Home Medications Scheduled Allopurinol (Zyloprim), 100 MG PO BID Amiodarone Hcl (Cordarone), 200 MG PO DAILY Apixaban (Eliquis), 5 MG PO BID Bumetanide (Bumex), 2 MG PO BID Calcitriol (Calcitriol), 0.5 MCG PO 3XWK Carvedilol (Coreg), 6.25 MG PO BIDM Fluocinonide Emulsified Base (Fluocinonide Emulsified), 1 APPLN TOP BID Gabapentin (Neurontin), 100 MG PO TID Insulin Aspart (Novolog Flexpen), 20 UNITS SC TIDM Insulin Glargine (Lantus Solostar), 35 UNITS SC HS Isosorbide Mononitrate Ext Rel (Imdur Ext Rel), 60 MG PO QAM Levothyroxine Sodium (Levothyroxine Sodium), 75 MCG PO DAILY Metolazone (Zaroxolyn), 2.5 MG PO 2XWK Omeprazole (Prilosec), 20 MG PO BID Potassium Ext Rel (Klor-Con), 40 MEQ PO BID Simvastatin (Zocor), 40 MG PO HS Spironolactone (Aldactone), 25 MG PO QAM Scheduled PRN Diclofenac Sodium (Topical) (Voltaren 1% Top Gel), 1 APPLN TOP QID PRN for Pain Ipratropium-Albuterol (Combivent Respimat), 1 PUFFS INH Q6 PRN for SOB/Wheezing Meclizine Hcl (Meclizine Hcl), 25 MG PO TID PRN for Nausea Nitroglycerin (Nitrostat), 0.4 MG UT UD PRN for Chest Pain Tramadol (Ultram), 50 MG PO Q8H PRN for Pain Trazodone Hcl (Trazodone), 25-50 MG PO HS PRN for Sleep Zolpidem Tartrate (Ambien), 1.25-2.5 MG PO HS PRN for Insomnia [Compound Medication], 1 APPLN UNKNOWN TID PRN for Pain Review of Systems The patient denies chest pain, palpitations, shortness of breath, dyspnea on exertion, cough, lower extremity swelling, sore throat, fevers, chills, sweats, weight change, fatigue, nausea, vomiting, diarrhea , constipation, abdominal pain, pelvic pain, blood in urine or stool, dysuria, urinary frequency or urgency, lightheadedness , dizziness, headache, memory loss, loss of consciousness, imbalance, focal or generalized weakness, numbness or tingling in arms or legs, generalized arthralgias or myalgias, back or neck pain, or night sweats. The review of systems is otherwise negative other than for that already noted above, and at least 10 systems have been reviewed. Physical Exam Vital Signs Date Time Temp Pulse Resp B/P (MAP) Pulse Ox O2 Delivery O2 Flow Rate FiO2 11/07/17 23:21 70 16 125/76 96 Room Air 11/07/17 21:41 71 20 11/07/17 21:33 106/61 11/07/17 21:30 11/07/17 21:11 70 20 11/07/17 21:00 107/66 11/07/17 20:41 69 21 11/07/17 20:34 72 11/07/17 20:30 106/62 11/07/17 19:43 36.6 72 18 119/74 96 Room Air The patient is awake, alert and oriented 3, well developed and well nourished, normocephalic and atraumatic, lying in bed and in no acute distress. HEENT--PERRL, EOMI, mucous membranes and oropharynx dry. Neck--supple. No JVD. No bruits. Thyroid normal, trachea midline, no adenopathy. Heart--normal S1 and S2. No murmurs, rubs or gallops. Lungs/chest wall--clear bilaterally, no respiratory distress, no accessory muscle use. Dressing over left shoulder area is blood tinged. Abdomen--normal bowel sounds and soft. Nontender. Nondistended, no hernias or masses, no organomegaly. Extremities--no cyanosis or clubbing. No edema. There are good distal pulses b/ l. Dermatologic--normal skin turgor, normal color, no abnormal lymph nodes, no rash. Neurologic--cranial nerves II through XII grossly intact. Rheumatologic--normal range of motion. Psychiatric--normal affect. Diagnostics Laboratory Results Results Past 24 Hours Test 11/07/17 20:18 Range/Units White Blood Count 6.24 4.8-10.8 K/uL Red Blood Count 4.33 4.7-6.1 M/uL Hemoglobin 13.9 14.0-18.0 g/dL Hematocrit 42.1 42-52 % Mean Corpuscular Volume 97.2 80-100 fL Mean Corpuscular Hemoglobin 32.1 25-34 pg Mean Corpuscular Hemoglobin Concent 33.0 32-36 g/dl Platelet Count 108 130-400 K/uL Mean Platelet Volume 10.1 7.4-10.4 fL Neutrophils (%) (Auto) 67.7 % Lymphocytes (%) (Auto) 14.8 % Monocytes (%) (Auto) 14.0 % Eosinophils (%) (Auto) 2.8 % Basophils (%) (Auto) 0.2 % Neutrophils # (Auto) 4.30 1.4-6.5 K/uL Lymphocytes # (Auto) 0.94 1.2-3.4 K/uL Monocytes # (Auto) 0.89 0.11-0.59 K/uL Eosinophils # (Auto) 0.18 0-0.5 K/uL Basophils # (Auto) 0.01 0-0.2 K/uL RDW Standard Deviation 56.5 36.4-46.3 fL RDW Coefficient of Variation 15.7 11.5-14.5 % Immature Granulocyte % (Auto) 0.5 % Immature Granulocyte # (Auto) 0.03 0.00-0.02 K/uL Red Blood Cell Morphology Unremarkable Prothrombin Time 11.4 9.0-12.0 SECONDS Prothromb Time International Ratio 1.1 0.9-1.1 Activated Partial Thromboplast Time 28.7 21.0-31.0 SECONDS Partial Thromboplastin Ratio 1.1 Sodium Level 134 136-145 mmol/L Potassium Level 3.9 3.5-5.1 mmol/L Chloride Level 97 98-107 mmol/L Carbon Dioxide Level 31 21-32 mmol/L Anion Gap 7.0 3-11 mmol/L Blood Urea Nitrogen 68 7-18 mg/dl Creatinine 2.52 0.60-1.40 mg/dl Estimated GFR () 27.8 Estimated GFR (Non- 24.0 BUN/Creatinine Ratio 26.8 10-20 Random Glucose 204 70-99 mg/dl Calcium Level 8.7 8.5-10.1 mg/dl Troponin I 0.052 0-0.045 ng/ml Microbiology Results 11/07/17 Blood Culture, Received Pending Diagnostic Radiology CHEST ONE VIEW PORTABLE CLINICAL HISTORY: post op bleeding from pacemaker site COMPARISON STUDY: 11/06/2017 FINDINGS: Patient is bipolar cardiac pacemaker/gallbladder is similar in location. Moderate cardiomegaly. Increased prominence of pulmonary vasculature is suggested a component of congestive failure. No evidence for pneumothorax. IMPRESSION: Mild congestive heart failure. Moderate cardiomegaly. Unchanged location of the permanent bipolar cardiac pacemaker leads. The above report was generated using voice recognition software. It may contain grammatical, syntax or spelling errors. Electronically signed by: Harjeet Tellez M.D. 11/07/2017 9:08 PM Dictated Date/Time: 11/07/2017 9:07 PM [~ rep ct add3]] (CHEST) THORAX WITHOUT CT DOSE: 810.25 mGy.cm HISTORY: Pain. Discharge. r/o hematoma/abscess around recently placed pacemaker TECHNIQUE: Multiaxial CT images of the chest were performed without contrast. A dose lowering technique was utilized adhering to the principles of ALARA. COMPARISON: None. FINDINGS: There is a left anterior chest wall pacemaker. This has been recently placed. There is surrounding soft tissue and air component surrounding the battery pack. Dimensions are somewhat problematic given the artifact from the pacemaker Nevertheless, the edematous region is primarily superficial and superior to the pacemaker. This region measures approximate 4.5 x 4.0 cm with several air bubbles within the soft tissues. This is immediately anterior to the mid clavicle. This potentially represents a postprocedural hematoma, with a reason air bubbles most likely postprocedural although abscess is not excluded. Lungs are considered clear. There is no evidence of pneumothorax. Pacemaker leads appear to be intact. Slight bronchovascular prominence in both lung bases. Moderate cardiomegaly. No significant pericardial effusion. IMPRESSION: 1. Soft tissue edematous change versus hematoma surrounding the patient's cardiac pacemaker battery pack. 2. There is edematous change of the pectoralis musculature, with a more definitive 4.5 x 4.0 cm hematoma superficial and superior to the battery pack . 3. The hematoma contains several air bubbles which statistically are most likely on a post procedural bases, although is impossible to entirely exclude the possibility of an infected hematoma. 4. Enlargement of the pectoralis musculature would indicate edematous change of the muscle inferior to the battery pack although an additional well-defined hematoma just type process in that region is not felt to be present. 5. The lungs are clear with no evidence of pneumothorax. The above report was generated using voice recognition software. It may contain grammatical, syntax or spelling errors. Electronically signed by: Harjeet Tellez M.D. 11/07/2017 10:44 PM Dictated Date/Time: 11/07/2017 10:39 PM The status of this report is Signed. Draft = Not yet reviewed or approved by Radiologist. EKG EKG shows biventricular paced rhythm at 70 bpm, no acute ST-T changes, and no change compared to 11/05/2017 Impression Assessment and Plan Bleeding into pacemaker pocket and through pacemaker incision-- The patient will be admitted to telemetry for serial cardiac enzymes, serial EKG's, and cardiac rhythm monitoring. Troponin is mildly elevated at 0.052, which may just be secondary to procedure recently performed. Continue amiodarone 200 mg by mouth daily, bumetanide 2 mg by mouth twice a day , carvedilol 6.25 mg by mouth twice a day with meals, Imdur extended release 60 mg by mouth every morning, potassium chloride extended release 40 mEq by mouth twice a day and spironolactone 25 mg by mouth every morning. Hold Eliquis 5 mg by mouth twice a day. Hold metolazone Consult Dr. Anderson. We'll continue with pressure dressing over wound overnight until seen by cardiology in the a.m. next Diabetes mellitus-- Continue Lantus 35 units subcutaneous at bedtime Place on Accu-Cheks before meals and at bedtime with NovoLog coverage per scale. GERD-- Change omeprazole 20 mg by mouth twice a day to pantoprazole 40 mg by mouth twice a day Hyperlipidemia-- Continue simvastatin 40 mg by mouth at bedtime Hypothyroidism-- Continue levothyroxine sodium at 75 g by mouth daily Peripheral neuropathy-- Continue gabapentin 100 mg by mouth 3 times a day Gout-- Continue allopurinol 100 mg by mouth twice a day Level of Care Telemetry Advanced Directives Existing Advance Directive: No Existing Living Will: No Existing Power of Operations Support Manager: No Resuscitation Status FULL RESUSCITATION VTE Prophylaxis VTE Risk Assessment Done? Y/N: Yes Risk Level: Moderate Given or contraindicated: Other Anticoagulation (Eliquis) Social Service Consult None Apply
[2017-11-08 00:30] VITALS: BP 120/70; PULSE 70; TEMP 36.6; O2SAT 95; Ht 172.7 cm; Wt 94.9 kg
[2017-11-08] MEDS ORDERED: IV FLUIDS COMPLETED PRN (02:00)
[2017-11-08] MEDS ORDERED: GLUCOSE 40% GEL 15 GM TUBE PO PRN (03:00)
[2017-11-08] MEDS ORDERED: ACETAMINOPHEN 325 MG TAB PO PRN (03:00)
[2017-11-08] MEDS ORDERED: TRAMADOL HCL 50 MG TAB PO PRN (03:00)
[2017-11-08] MEDS ORDERED: TRAZODONE HCL 50 MG TAB PO PRN (03:00)
[2017-11-08] MEDS ORDERED: NITROGLYCERIN 0.4 MG SL PER TAB CHARGE UT PRN (03:00)
[2017-11-08] MEDS ORDERED: MECLIZINE HCL 12.5 MG TAB PO PRN (03:00)
[2017-11-08] MEDS ORDERED: DEXTROSE 50% 50 ML SYR IV PRN (03:00)
[2017-11-08] MEDS ORDERED: GLUCOSE 10 TABS/TUBE PO PRN (03:00)
[2017-11-08] MEDS ORDERED: IPRATROPIUM BROMIDE/ALBUTEROL respimat INH INH PRN (03:00)
[2017-11-08] MEDS ORDERED: ONDANSETRON 8MG OD TAB PO PRN (03:00)
[2017-11-08] MEDS ORDERED: GLUCAGON FOR INJ 1 MG VIAL SQ PRN (03:00)
[2017-11-08] MEDS ORDERED: NITROGLYCERIN 0.4 MG SL PER TAB CHARGE SL PRN (03:00)
[2017-11-08 03:58] VITALS: BP 119/75; PULSE 75; TEMP 36.6; O2SAT 96
[2017-11-08] MEDS ORDERED: CEFTRIAXONE SOD INJ 1 GM in DEXTROSE 5% ADD-VANTAGE 50ML 50 ML IV SCH (04:00)
[2017-11-08] MEDS ORDERED: LEVOTHYROXINE 75 MCG TAB PO SCH (06:00)
[2017-11-08 07:15] VITALS: BP 105/66; PULSE 73; TEMP 36.6; O2SAT 94
[2017-11-08] MEDS ORDERED: CARVEDILOL 6.25 MG TAB PO SCH (07:30)
[2017-11-08] MEDS: INSULIN ASPART 100 UNITS/ML 3 ML PEN SC SCH ×2 (08:01→12:08)
--- NOTE | 2017-11-08 08:58 | Progress Note ---
Subjective Date of Service: Nov 08, 2017. Problem List Medical Problems: (1) Acute renal insufficiency Status: Acute (2) Cellulitis, abdominal wall Status: Acute (3) Chest pain Status: Acute (4) Chronic renal insufficiency Status: Acute (5) Dehydration Status: Acute (6) Dyspnea Status: Acute (7) Elevated d-dimer Status: Acute (8) Elevated troponin Status: Acute (9) Elevated troponin Status: Acute (10) Elevated troponin Status: Acute (11) Fever Status: Acute (12) Headache Status: Acute (13) Headache Status: Acute (14) Hypertension Status: Acute (15) Hypoxia Status: Acute (16) Left sided chest pain Status: Acute (17) Lightheadedness Status: Acute (18) Pacemaker malfunction Status: Acute (19) Pneumonia Status: Acute (20) Pneumonia Status: Acute (21) Precordial chest pain Status: Acute (22) Renal insufficiency Status: Acute (23) Supratherapeutic INR Status: Acute (24) Surgical wound hemorrhage after dental procedure Status: Acute (25) Syncope Status: Acute (26) Vertigo Status: Acute Objective Vital Signs Date Time Temp Pulse Resp B/P (MAP) Pulse Ox O2 Delivery O2 Flow Rate FiO2 11/08/17 07:15 36.6 73 18 105/66 (79) 94 Room Air 11/08/17 04:00 Room Air 11/08/17 03:58 36.6 75 18 119/75 (90) 96 Room Air 11/08/17 00:30 36.6 70 20 120/70 95 Room Air 11/07/17 23:59 70 11/07/17 23:21 70 16 125/76 96 Room Air 11/07/17 21:41 71 20 11/07/17 21:33 106/61 11/07/17 21:30 11/07/17 21:11 70 20 11/07/17 21:00 107/66 11/07/17 20:41 69 21 11/07/17 20:34 72 11/07/17 20:30 106/62 11/07/17 19:43 36.6 72 18 119/74 96 Room Air Laboratory Results Last 24 Hours Test 11/07/17 20:18 11/08/17 07:08 White Blood Count 6.24 K/uL Red Blood Count 4.33 M/uL Hemoglobin 13.9 g/dL Hematocrit 42.1 % Mean Corpuscular Volume 97.2 fL Mean Corpuscular Hemoglobin 32.1 pg Mean Corpuscular Hemoglobin Concent 33.0 g/dl Platelet Count 108 K/uL Mean Platelet Volume 10.1 fL Neutrophils (%) (Auto) 67.7 % Lymphocytes (%) (Auto) 14.8 % Monocytes (%) (Auto) 14.0 % Eosinophils (%) (Auto) 2.8 % Basophils (%) (Auto) 0.2 % Neutrophils # (Auto) 4.30 K/uL Lymphocytes # (Auto) 0.94 K/uL Monocytes # (Auto) 0.89 K/uL Eosinophils # (Auto) 0.18 K/uL Basophils # (Auto) 0.01 K/uL RDW Standard Deviation 56.5 fL RDW Coefficient of Variation 15.7 % Immature Granulocyte % (Auto) 0.5 % Immature Granulocyte # (Auto) 0.03 K/uL Red Blood Cell Morphology Unremarkable Prothrombin Time 11.4 SECONDS Prothromb Time International Ratio 1.1 Activated Partial Thromboplast Time 28.7 SECONDS Partial Thromboplastin Ratio 1.1 Sodium Level 134 mmol/L Potassium Level 3.9 mmol/L Chloride Level 97 mmol/L Carbon Dioxide Level 31 mmol/L Anion Gap 7.0 mmol/L Blood Urea Nitrogen 68 mg/dl Creatinine 2.52 mg/dl Estimated GFR () 27.8 Estimated GFR (Non- 24.0 BUN/Creatinine Ratio 26.8 Random Glucose 204 mg/dl Calcium Level 8.7 mg/dl Troponin I 0.052 ng/ml Bedside Glucose 158 mg/dl Assessment and Plan Bleeding into pacemaker pocket and through pacemaker incision-- Cad, atrial arrhythmia, recent pacemaker, amiodarone 200 mg by mouth daily, bumetanide 2 mg by mouth twice a day, carvedilol 6.25 mg by mouth twice a Imdur extended release 60 mg by mouth every morning, potassium chloride extended release 40 mEq by mouth twice a day and spironolactone 25 mg by mouth every morning. Hold Eliquis 5 mg by mouth twice a day, Hold metolazone Consult Dr. Anderson. Diabetes mellitus-- Lantus 35 units subcutaneous HS, NovoLog coverage per scale. GERD-- omeprazole 20 mg by mouth twice a day to pantoprazole 40 mg by mouth twice a day Hyperlipidemia-- simvastatin 40 mg by mouth at bedtime Hypothyroidism-- levothyroxine sodium at 75 g by mouth daily Peripheral neuropathy-- gabapentin 100 mg by mouth 3 times a day Gout-- allopurinol 100 mg by mouth twice a day
[2017-11-08] MEDS ORDERED: BUMETANIDE 1 MG TAB PO SCH (09:00)
[2017-11-08] MEDS ORDERED: SPIRONOLACTONE 25 MG TAB PO SCH (09:00)
[2017-11-08] MEDS ORDERED: ALLOPURINOL 100 MG TAB PO SCH (09:00)
[2017-11-08] MEDS ORDERED: AMIODARONE 200 MG TAB PO SCH (09:00)
[2017-11-08] MEDS ORDERED: GABAPENTIN 100 MG CAP PO SCH (09:00)
[2017-11-08] MEDS ORDERED: POTASSIUM CHLORIDE 20 MEQ TABCR PO SCH (09:00)
[2017-11-08] MEDS ORDERED: ISOSORBIDE MONONITRATE 60 MG TABCR PO SCH (09:00)
[2017-11-08] MEDS ORDERED: PANTOprazole SOD 40 MG TAB PO SCH (09:00)
[2017-11-08 10:42] LABS: HEMATOCRIT 41.3 % (42-52); HEMOGLOBIN 13.7 g/dL (14.0-18.0); MEAN CELL VOLUME 96.5 fL (80-100); MEAN CORPUSCULAR HGB CONC 33.2 g/dl (32-36); MEAN PLATELET VOLUME 9.4 fL (7.4-10.4); PLATELET COUNT 105 K/uL (130-400); RED CELL DISTRIBUTION WIDTH CV 15.6 % (11.5-14.5); RED CELL DISTRIBUTION WIDTH SD 54.6 fL (36.4-46.3); WHITE BLOOD COUNT 6.33 K/uL (4.8-10.8)
[2017-11-08 10:49] VITALS: BP 91/59; PULSE 70; TEMP 36.3; O2SAT 94
[2017-11-08 11:22] LABS: CKMB 2.1 ng/ml (0.5-3.6)
[2017-11-08] MEDS ORDERED: CEPH-571 PO ×2 (12:27)
--- NOTE | 2017-11-08 12:29 | Discharge Instructions ---
Discharge Instructions Date of Service Nov 08, 2017. Admission Reason for Admission: Mechanical Complication Of Pacemaker Discharge Discharge Diagnosis / Problem: bleeding from pacemaker site Discharge Goals Goal(s): Diagnostic testing, Therapeutic intervention Activity Recommendations Activity Limitations: as noted below Lifting Limitations: gradually increase as tolerated . Current Hospital Diet Patient's current hospital diet: AHA Diet (Heart Healthy), Diabetes Type 2 Diet Discharge Diet Recommended Diet: Low Sodium Diet (2gm Na), Diabetes Type 2 Diet Pending Studies Studies pending at discharge: no Laboratory Results Hemoglobin A1c Test 11/06/17 06:24 Range/Units Estimated Average Glucose 143 mg/dl Hemoglobin A1c 6.6 H 4.5-5.6 % Medical Emergencies . Who to Call and When: Medical Emergencies: If at any time you feel your situation is an emergency, please call 911 immediately. . Non-Emergent Contact Non-Emergency issues call your: Primary Care Provider, Protein Specialist Call Non-Emergent contact if: temperature is above 101, your pain is unusual for you . . "Provider Documentation" section prepared by Matt Dobson. . VTE Core Measure Inpt VTE Proph given/why not?: Other Anticoagulation (Eliquis)
[2017-11-08 12:43] VITALS: BP 91/59; PULSE 70; TEMP 36.3; O2SAT 94
--- NOTE | 2017-11-08 14:03 | CARDIOLOGY PROGRESS NOTE ---
DATE: 11/08/2017 SUBJECTIVE: Mr. Davidson is resting comfortably in bed without complaints of chest pain or dyspnea. Bleeding from his surgical site has stopped. OBJECTIVE: VITAL SIGNS: Blood pressure is 100/60 with a regular pulse of 70. Respiratory rate is 20. The patient is afebrile at 36.3 degrees Celsius. Saturation is 94% on room air. NECK: Supple with full carotid upstrokes. No obvious bruits. Jugular venous pressure is flat at 90 degrees. There is no thyromegaly. CARDIOVASCULAR: Regular rhythm with distant heart sounds. CHEST: Notes an ecchymosis across the left shoulder. No active bleeding from the incision site. LUNGS: Clear without rales, rhonchi, or wheezes. ABDOMEN: Soft without bruits. EXTREMITIES: Reveal intact radial artery pulses bilaterally. Trace pretibial edema is noted. DATA: CBC notes a hemoglobin of 13.9, hematocrit 42.1, white count 6.2, platelet count 108,000. Electrolytes note a sodium of 134, potassium 3.9, chloride 97, bicarbonate 31, BUN 68, creatinine 2.5, glucose 158. Troponin I level was 0.052. 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 IMPRESSION AND PLAN: 1. Surgical wound bleeding -- likely occurred as Eliquis is started following the procedure. The bleeding has stopped at this time. Will reapply a pressure bandage to remain in place until he is seen by Dr. Anderson as an outpatient tomorrow. That appointment is already scheduled. 2. Known coronary artery disease -- status post left anterior descending coronary artery stent x2. 3. Ischemic cardiomyopathy -- ejection fraction 20-25%. 4. Biventricular implantable cardioverter defibrillator -- old left ventricular lead was explanted and a new lead placed on November 05 because of the left ventricular lead malfunction. 5. History of systolic congestive heart failure -- compensated at this time. 6. Permanent atrial fibrillation. 7. Hypertension. 8. Hypercholesterolemia. 9. Chronic troponin I elevation.
--- NOTE | 2017-11-08 15:44 | Discharge Summary ---
Discharge Summary Date of Service Nov 08, 2017. Discharge Summary Admission Date: Nov 07, 2017 at 23:42 Discharge Date: Nov 08, 2017 Principal Diagnosis: bleeding from pacemaker site while on an oral anticoagulant, large hematoma Immunizations: Have You Had Influenza Vaccine: No Influenza Vaccine Date: Jul 15, 2010 History of Tetanus Vaccine?: Yes Tetanus Immunization Date: Jul 15, 2010 History of Pneumococcal: Yes Pneumococcal Date: March 03, 2009 History of Hepatitis B Vaccine: No Medication Reconciliation New Medications: Cephalexin (Keflex) 500 Mg Cap 1 CAP PO TID for 7 Days, #21 CAP Continued Medications: Allopurinol (Zyloprim) 100 Mg Tab 100 MG PO BID, TAB Amiodarone Hcl (Cordarone) 200 Mg Tab 200 MG PO DAILY, TAB Bumetanide (Bumex) 2 Mg Tab 2 MG PO BID, TAB Calcitriol (Calcitriol) 0.5 Mcg Cap 0.5 MCG PO 3XWK Carvedilol (Coreg) 6.25 Mg Tab 6.25 MG PO BIDM Diclofenac Sodium (Topical) (Voltaren 1% Top Gel) 1 % Gel 1 APPLN TOP QID PRN for Pain Fluocinonide Emulsified Base (Fluocinonide Emulsified) 0.05 % Cre 1 APPLN TOP BID Gabapentin (Neurontin) 100 Mg Cap 100 MG PO TID, CAP Insulin Aspart (Novolog Flexpen) 100 Units/Ml Inj 20 UNITS SC TIDM UP TO 0 UNITS A DAY Insulin Glargine (Lantus Solostar) 100 Unit/Ml Inj 35 UNITS SC HS Ipratropium-Albuterol (Combivent Respimat) 1 Aer Aer 1 PUFFS INH Q6 PRN for SOB/Wheezing Isosorbide Mononitrate Ext Rel (Imdur Ext Rel) 60 Mg Ertab 60 MG PO QAM, TAB Levothyroxine Sodium (Levothyroxine Sodium) 75 Mcg Tab 75 MCG PO DAILY Meclizine Hcl (Meclizine Hcl) 25 Mg Tab 25 MG PO TID PRN for Nausea Metolazone (Zaroxolyn) 2.5 Mg Tab 2.5 MG PO 2XWK SUNDAYS AND WEDNESDAYS Nitroglycerin (Nitrostat) 0.4 Mg Tab 0.4 MG UT UD PRN for Chest Pain Omeprazole (Prilosec) 20 Mg Cap 20 MG PO BID Potassium Ext Rel (Klor-Con) 20 Meq Tabcr 40 MEQ PO BID Simvastatin (Zocor) 40 Mg Tab 40 MG PO HS Spironolactone (Aldactone) 25 Mg Tab 25 MG PO QAM, TAB Tramadol (Ultram) 50 Mg Tab 50 MG PO Q8H PRN for Pain, TAB Trazodone Hcl (Trazodone) 50 Mg Tab 25-50 MG PO HS PRN for Sleep Zolpidem Tartrate (Ambien) 5 Mg Tab 1.25-2.5 MG PO HS PRN for Insomnia [Compound Medication] () 1 APPLN UNKNOWN TID PRN for Pain COMPOUND MEDICATION: LIDOCAINE / MELOXICAM Discontinued Medications: Apixaban (Eliquis) 5 Mg Tab 5 MG PO BID for 30 Days, #60 TAB Discharge Exam Review of Systems: Constitutional: No fever, No chills Respiratory: No cough, No sputum, No shortness of breath, No dyspnea on exertion Cardiovascular: + chest pain (at pectoralis muscle from swelling), + edema Abdomen: No pain, No nausea, No diarrhea Integumentary: + problem reported (bleeding from site) Physical Exam: General Appearance: WD/WN, no apparent distress Respiratory/Chest: chest non-tender, lungs clear, normal breath sounds Cardiovascular: regular rate, rhythm, normal peripheral pulses Skin: + pertinent finding (there is little bleeding since am as dressing is dry with only minor crusting) Hospital Course Bleeding into pacemaker pocket and through pacemaker incision--cardiology has seen and feels continue with conservative care but adding Keflex to prophylax against infection Cad, atrial arrhythmia, recent pacemaker, amiodarone 200 mg by mouth daily, bumetanide 2 mg by mouth twice a day, carvedilol 6.25 mg by mouth twice a Imdur extended release 60 mg by mouth every morning, potassium chloride extended release 40 mEq by mouth twice a day and spironolactone 25 mg by mouth every morning. Hold Eliquis 5 mg by mouth twice a day, Diabetes mellitus-- Lantus 35 units subcutaneous HS, NovoLog coverage per scale. GERD-- omeprazole 20 mg by mouth twice a day to pantoprazole 40 mg by mouth twice a day Hyperlipidemia-- simvastatin 40 mg by mouth at bedtime Hypothyroidism-- levothyroxine sodium at 75 g by mouth daily Peripheral neuropathy-- gabapentin 100 mg by mouth 3 times a day Gout-- allopurinol 100 mg by mouth twice a day Total Time Spent: Greater than 30 minutes This includes examination of the patient, discharge planning, medication reconciliation, and communication with other providers. Discharge Instructions Please refer to the electronic Patient Visit Report (Discharge Instructions) for additional information.
[2017-11-08] MEDS ORDERED: SIMVASTATIN 40 MG TAB PO SCH (21:00)
[2017-11-08] MEDS ORDERED: INSULIN GLARGINE SOLOSTAR 100 UNITS/ML 3 ML PEN SC SCH (21:00)
== END 2017-11-08 13:52 | disposition home health service (06) ==
LOC: C.EDB 19:42 → C.2T 23:42 → ENRESERV 11-08 00:01
PROVIDERS: ADMIT Hospitalist; ATTEND Internal Medicine
DX: T82.837A Hemorrhage due to cardiac prosthetic devices, implants and grafts, initial encounter (principal); I97.638 Postprocedural hematoma of a circulatory system organ or structure following other circulatory system procedure; Y71.2 Prosthetic and other implants, materials and accessory cardiovascular devices associated with adverse incidents; K21.9 Gastro-esophageal reflux disease without esophagitis; I25.5 Ischemic cardiomyopathy; I48.2 Chronic atrial fibrillation; E11.40 Type 2 diabetes mellitus with diabetic neuropathy, unspecified; I25.10 Atherosclerotic heart disease of native coronary artery without angina pectoris; I11.0 Hypertensive heart disease with heart failure; I50.20 Unspecified systolic (congestive) heart failure; M10.9 Gout, unspecified; M19.90 Unspecified osteoarthritis, unspecified site; Z79.01 Long term (current) use of anticoagulants; Z79.4 Long term (current) use of insulin; Z95.0 Presence of cardiac pacemaker; Z83.3 Family history of diabetes mellitus; Z82.49 Family history of ischemic heart disease and other diseases of the circulatory system; Z84.1 Family history of disorders of kidney and ureter; Z79.899 Other long term (current) drug therapy

== ENCOUNTER → 2017-11-09 | Outpatient (CLI) | payer OTHER ==
[~2017-11-09] MED LIST changes: -APIX1TAB3 PO; +CEPH-571 PO
--- NOTE | 2017-11-09 11:14 | DIAGNOSTIC IMAGING REPORT ---
(RENAL)RETROPERITON COMP HISTORY: 77 years-old Male N20.0 Nephrolithiasisno latex [id number] COMPARISON: Abdominal ultrasound 06/30/2014 TECHNIQUE: Multiple real-time sonographic images of the kidneys and urinary bladder were obtained assessing grayscale appearance and color flow FINDINGS: The right kidney measures 10.1 x 6.1 x 5.5 cm. Mild right-sided perinephric stranding is noted along with mild cortical thinning and increased echogenicity of the renal parenchyma. No focal mass lesions, hydronephrosis or shadowing calculi identified. The left kidney measures 10.3 x 5.4 x 5.8 cm. Mild left-sided perinephric stranding is noted along with mild cortical thinning and increased echogenicity of the renal parenchyma. No focal mass lesions, hydronephrosis or shadowing calculi identified. Bladder is partially collapsed. Bilateral ureteral jets documented. IMPRESSION: 1. No shadowing nephrolithiasis or hydronephrosis identified. 2. Evidence of chronic medical renal disease. 3. Partial collapse of the urinary bladder. The above report was generated using voice recognition software. It may contain grammatical, syntax or spelling errors. Electronically signed by: Brandt Richards M.D. 11/09/2017 11:12 AM Dictated Date/Time: 11/09/2017 11:09 AM
== END | disposition home or self-care (01) ==
LOC: C.ULTR 08:51
PROVIDERS: ATTEND Urology
DX: N18.9 Chronic kidney disease, unspecified (principal); N32.89 Other specified disorders of bladder

== ENCOUNTER 2017-11-30 16:20 | Emergency (ER) | payer OTHER ==
[~2017-11-30] VITALS: Ht 170.2 cm; Wt 91.0 kg
[~2017-11-30 16:20] MED LIST changes: -CEPH-571 PO
[2017-11-30 16:29] VITALS: TEMP 37.5; Ht 170.2 cm; Wt 91.0 kg
[2017-11-30] MEDS ORDERED: ACETAMINOPHEN 500 MG TAB PO STA (17:28)
[2017-11-30] MEDS ORDERED: ALBUT/IPRATROP 3MG/0.5MG NEB 3 ML VIAL INH STA (17:28)
--- NOTE | 2017-11-30 17:56 | DIAGNOSTIC IMAGING REPORT ---
CHEST ONE VIEW PORTABLE CLINICAL HISTORY: Atypical chest pain and shortness of breath COMPARISON STUDY: 11/07/2017 FINDINGS: The heart is enlarged. There is a left subclavian pacer/defibrillator. There is resolving congestive failure. There is no focal pulmonary consolidation. No significant pleural effusions are visualized.[ IMPRESSION: Resolution of the previous described congestive failure. Persistent cardiomegaly. No evidence of focal pulmonary consolidation Electronically signed by: Anton Collazo M.D. 11/30/2017 5:54 PM Dictated Date/Time: 11/30/2017 5:53 PM
[2017-11-30 18:06] VITALS: O2SAT 93
[2017-11-30 18:11] LABS: EOS % 0.4 %; EOS ABS # 0.04 K/uL (0-0.5); HEMATOCRIT 48.5 % (42-52); HEMOGLOBIN 15.6 g/dL (14.0-18.0); IG# 0.05 K/uL (0.00-0.02); LYMPH % 4.9 %; LYMPH ABS # 0.53 K/uL (1.2-3.4); MEAN CELL VOLUME 97.4 fL (80-100); MEAN CORPUSCULAR HEMOGLOBIN 31.3 pg (25-34); MEAN CORPUSCULAR HGB CONC 32.2 g/dl (32-36); MEAN PLATELET VOLUME 10.4 fL (7.4-10.4); MONO % 6.7 %; MONO ABS # 0.73 K/uL (0.11-0.59); NEUT % 87.5 %; NEUT ABS # 9.55 K/uL (1.4-6.5); PLATELET COUNT 106 K/uL (130-400); RED CELL DISTRIBUTION WIDTH CV 15.1 % (11.5-14.5); RED CELL DISTRIBUTION WIDTH SD 53.3 fL (36.4-46.3)
[2017-11-30 18:43] LABS: ALBUMIN 3.5 gm/dl (3.4-5.0); CREATININE 2.08 mg/dl (0.60-1.40); POTASSIUM 4.3 mmol/L (3.5-5.1)
[2017-11-30 18:44] LABS: INFLUENZA B ANTIGEN Neg for Influ B (NEG)
[2017-11-30 18:56] LABS: TOTAL PROTEIN 7.9 gm/dl (6.4-8.2)
[2017-11-30 20:42] LABS: INFLUENZA A PCR Neg for Influ A (NEG); INFLUENZA B PCR Neg for Influ B (NEG)
[2017-11-30] MEDS ORDERED: OSELTAMIVIR PHOSPHATE 75 MG CAP PO STA (21:39)
[2017-11-30] MEDS ORDERED: OSEL75CA23 PO (21:51)
--- NOTE | 2017-11-30 21:53 | EMERGENCY ROOM VISIT NOTE ---
History Report prepared by Stephanie: Yara Mo Under the Supervision of: Dr. Jean Sanchez M.D. First contact with patient: 17:24 Chief Complaint: FLU LIKE SX Stated Complaint: VOMITING, SHAKEY, DIFFICULTY BREATHING History of Present Illness The patient is a 77 year old male who presents to the Emergency Room with complaints of persistent illness starting earlier today. The history is provided through the daughter translating. He had been feeling well for the past week. Today, she received a call from his neighbor saying that the patient was not feeling well. She went to his home and found him shaking in his bed. She found that his blood sugar was high. On the way to the ED, the patient vomited several times. He seems to have a fever now. He is SOB. He has been coughing a little and has pain in his chest with coughing. He denies any nausea currently. His son and his family were recently sick. He does not smoke. He is still on Eliquis. The patient has a history of ischemic cardiomyopathy. He has an EF of 20-25%, s/p AICD placement. He is permanent atrial fibrillation on Eliquis. Source of History: patient, family Onset: earlier today Position: other (global) Quality: other (illness) Timing: other (persistent) Associated Symptoms: + fevers, + cough, + chest pain, + SOB, + vomiting, No nausea Note: Pt is shaking. Review of Systems See HPI for pertinent positives and negatives. A total of ten systems were reviewed and were otherwise negative. 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 (18) Nephrolithiasis (19) Pacemaker lead fracture (20) Thyroid dysfunction (21) Two stents Family History Diabetes mellitus FH: cancer Heart disease Hypertension Kidney disease Kidney stones Social History Smoking Status: Never Smoker Alcohol Use: none Drug Use: none Marital Status: Housing Status: lives with family Occupation Status: retired Current/Historical Medications Scheduled Allopurinol (Zyloprim), 100 MG PO BID Amiodarone Hcl (Cordarone), 200 MG PO DAILY Bumetanide (Bumex), 2 MG PO BID Calcitriol (Calcitriol), 0.5 MCG PO 3XWK Carvedilol (Coreg), 6.25 MG PO BIDM Fluocinonide Emulsified Base (Fluocinonide Emulsified), 1 APPLN TOP BID Insulin Aspart (Novolog Flexpen), 20 UNITS SC TIDM Insulin Glargine (Lantus Solostar), 30 UNITS SC HS Isosorbide Mononitrate Ext Rel (Imdur Ext Rel), 60 MG PO QAM Levothyroxine Sodium (Levothyroxine Sodium), 75 MCG PO DAILY Metolazone (Zaroxolyn), 2.5 MG PO 2XWK Oseltamivir Phosphate (Tamiflu), 30 MG PO BID Potassium Ext Rel (Klor-Con), 40 MEQ PO BID Simvastatin (Zocor), 40 MG PO HS Spironolactone (Aldactone), 25 MG PO QAM Scheduled PRN Diclofenac Sodium (Topical) (Voltaren 1% Top Gel), 1 APPLN TOP QID PRN for Pain Nitroglycerin (Nitrostat), 0.4 MG UT UD PRN for Chest Pain Zolpidem Tartrate (Ambien), 1.25-2.5 MG PO HS PRN for Insomnia Allergies Coded Allergies: No Known Allergies (Verified , 11/07/17) Physical Exam Vital Signs Date Time Temp Pulse Resp B/P (MAP) Pulse Ox O2 Delivery O2 Flow Rate FiO2 11/30/17 22:55 70 17 117/69 92 11/30/17 21:39 70 109/66 92 2.0 11/30/17 21:00 70 17 93 11/30/17 19:55 70 15 100/65 90 11/30/17 18:23 70 22 115/61 94 Nasal Cannula 2.0 Nebulizer 11/30/17 18:22 70 11/30/17 18:06 93 Nasal Cannula 2.0 11/30/17 18:05 88 Room Air 11/30/17 16:29 37.5 84 18 116/75 89 Room Air Physical Exam GENERAL: Awake, alert, uncomfortable and fatigued-appearing, in no distress HENT: Normocephalic, atraumatic. Dry mucous membranes. Oropharynx unremarkable. EYES: Normal conjunctiva. Sclera non-icteric. NECK: Supple. No nuchal rigidity. FROM. No JVD. RESPIRATORY: Diminished breath sounds throughout with scant isolated wheeze. CARDIAC: Regular rate, irregularly irregular rhythm. Extremities warm and well perfused. Pulses equal. ABDOMEN: Soft, non-distended. No tenderness to palpation. No rebound or guarding. No masses. RECTAL: Deferred. MUSCULOSKELETAL: Chest examination reveals no tenderness. The back is symmetrical on inspection without obvious abnormality. There is no CVA tenderness to palpation. No joint edema. LOWER EXTREMITIES: Calves are equal size bilaterally and non-tender. No edema. No discoloration. NEURO: Normal sensorium. No sensory or motor deficits noted. SKIN: No rash or jaundice noted. Medical Decision & Procedures ER Provider Diagnostic Interpretation: Xray results as stated below per my and radiologist interpretation: CHEST ONE VIEW PORTABLE CLINICAL HISTORY: Atypical chest pain and shortness of breath COMPARISON STUDY: 11/07/2017 FINDINGS: The heart is enlarged. There is a left subclavian pacer/defibrillator. There is resolving congestive failure. There is no focal pulmonary consolidation. No significant pleural effusions are visualized.[ IMPRESSION: Resolution of the previous described congestive failure. Persistent cardiomegaly. No evidence of focal pulmonary consolidation Electronically signed by: Anton Collazo M.D. 11/30/2017 5:54 PM Dictated Date/Time: 11/30/2017 5:53 PM Laboratory Results 11/30/17 17:55 Red Blood Count 4.98, Mean Corpuscular Volume 97.4, Mean Corpuscular Hemoglobin 31.3, Mean Corpuscular Hemoglobin Concent 32.2, Mean Platelet Volume 10.4, Neutrophils (%) (Auto) 87.5, Lymphocytes (%) (Auto) 4.9, Monocytes (%) (Auto) 6.7, Eosinophils (%) (Auto) 0.4, Basophils (%) (Auto) 0.0, Neutrophils # (Auto) 9.55, Lymphocytes # (Auto) 0.53, Monocytes # (Auto) 0.73, Eosinophils # (Auto) 0.04, Basophils # (Auto) 0.00 11/30/17 17:55 Test 11/30/17 17:55 11/30/17 18:00 11/30/17 21:11 White Blood Count 10.90 K/uL (4.8-10.8) Red Blood Count 4.98 M/uL (4.7-6.1) Hemoglobin 15.6 g/dL (14.0-18.0) Hematocrit 48.5 % (42-52) Mean Corpuscular Volume 97.4 fL (80-100) Mean Corpuscular Hemoglobin 31.3 pg (25-34) Mean Corpuscular Hemoglobin Concent 32.2 g/dl (32-36) Platelet Count 106 K/uL (130-400) Mean Platelet Volume 10.4 fL (7.4-10.4) Neutrophils (%) (Auto) 87.5 % Lymphocytes (%) (Auto) 4.9 % Monocytes (%) (Auto) 6.7 % Eosinophils (%) (Auto) 0.4 % Basophils (%) (Auto) 0.0 % Neutrophils # (Auto) 9.55 K/uL (1.4-6.5) Lymphocytes # (Auto) 0.53 K/uL (1.2-3.4) Monocytes # (Auto) 0.73 K/uL (0.11-0.59) Eosinophils # (Auto) 0.04 K/uL (0-0.5) Basophils # (Auto) 0.00 K/uL (0-0.2) RDW Standard Deviation 53.3 fL (36.4-46.3) RDW Coefficient of Variation 15.1 % (11.5-14.5) Immature Granulocyte % (Auto) 0.5 % Immature Granulocyte # (Auto) 0.05 K/uL (0.00-0.02) Anion Gap 5.0 mmol/L (3-11) Est Creatinine Clear Calc Drug Dose 33.0 ml/min Estimated GFR () 35.0 Estimated GFR (Non- 30.2 BUN/Creatinine Ratio 16.2 (10-20) Calcium Level 9.0 mg/dl (8.5-10.1) Total Bilirubin 0.8 mg/dl (0.2-1) Direct Bilirubin 0.3 mg/dl (0-0.2) Aspartate Amino Transf (AST/SGOT) 25 U/L (15-37) Alanine Aminotransferase (ALT/SGPT) 22 U/L (12-78) Alkaline Phosphatase 97 U/L (45-117) Troponin I 0.062 ng/ml (0-0.045) Pro-B-Type Natriuretic Peptide 3503 pg/ml (0-900) Total Protein 7.9 gm/dl (6.4-8.2) Albumin 3.5 gm/dl (3.4-5.0) Lipase 190 U/L (73-393) Influenza Type A (RT-PCR) Neg for Influ A (NEG) Influenza Type A Antigen Neg for Influ A (NEG) Influenza Type B Antigen Neg for Influ B (NEG) Influenza Type B (RT-PCR) Neg for Influ B (NEG) Urine Color YELLOW Urine Appearance CLEAR (CLEAR) Urine pH 5.0 (4.5-7.5) Urine Specific [place] 1.018 (1.000-1.030) Urine Protein NEG (NEG) Urine Glucose (UA) NEG (NEG) Urine Ketones NEG (NEG) Urine Occult Blood NEG (NEG) Urine Nitrite NEG (NEG) Urine Bilirubin NEG (NEG) Urine Urobilinogen NEG (NEG) Urine Leukocyte Esterase NEG (NEG) Laboratory results reviewed by me Medications Administered Medications (Trade) Dose Ordered Sig/Rajesh Route Start Time Stop Time Status Last Admin Dose Admin Albuterol/ Ipratropium (Duoneb) 3 ml NOW STAT INH 11/30/17 17:28 11/30/17 17:33 DC 11/30/17 17:28 3 ML Acetaminophen (Tylenol Tab) 1,000 mg NOW STAT PO 11/30/17 17:28 11/30/17 17:34 DC 11/30/17 17:28 1,000 MG Oseltamivir Phosphate (Tamiflu Susp) 30 mg NOW STAT PO 11/30/17 22:47 11/30/17 22:48 DC 11/30/17 22:52 30 MG ECG Indication: SOB/dyspnea Rate (beats per minute): 70 Rhythm: other (v paced rhythm) Findings: no acute ischemic change, other (normal intervals) Change: Patient's electrocardiogram interpreted by me. ED Course 1725: The patient was evaluated in room C4. A complete history and physical exam was performed. 2133: I reevaluated the patient. Discussed results and discharge instructions: they verbalized understanding and agreement. The patient is ready for discharge. Medical Decision I reviewed the patient's past medical history, medications, and the nursing notes as described above. Differential diagnosis: Etiologies such as influenza, viral syndrome, infections, reactive airway disease, pneumonia, pneumothorax, COPD, CHF, cardiac ischemia, pulmonary embolism, musculoskeletal, gastrointestinal, as well as others were entertained. \ The patient is a 77 y/o gentleman with a pmhx of CHF, EF 25% s/p AICD on 2L home o2, afib on coumadin presents to the emergency department with body aches, feverishness/chills, cough that began today per HPI. On arrival the patient is fatigued appearing but in NAD, AF with temp 37.5, VSS. EKG shows paced rhythm no signs of acute ischemia. WBC 10, nonspecific. Trop 0.06 similar to chronic troponin elevation. BNP 3000s also at baseline. Cr 2.0 improved from recent. CXR improved from prior. Influenza Ag and PCR negative. Patient improved and resolution of sx after APAP and neb and preferring discharge. Sx most likely related to mild viral illness. While Flu negative, given prevalence in the community and patient's multiple comorbidities will treat empirically with Tamiflu. Plan for close pcp f/u. Findings and plan for follow-up reviewed with patient. Patient agreeable and d/c'd per discharge instructions. Medication Reconcilliation Current Medication List: was personally reviewed by me Blood Pressure Screening Patient's blood pressure: Normal blood pressure Blood pressure disposition: Did not require urgent referral Impression Primary Impression: Myalgia Additional Impression: Generalized weakness Scribe Attestation The scribe's documentation has been prepared under my direction and personally reviewed by me in its entirety. I confirm that the note above accurately reflects all work, treatment, procedures, and medical decision making performed by me. Departure Information Dispostion Home / Self-Care Prescriptions Oseltamivir Phosphate (Tamiflu) 75 Mg Cap 30 MG PO BID, #10 CAP Prov: Jean Sanchez M.D. 11/30/17 Referrals Noel Reid M.D. (PCP) Patient Instructions ED Flu, ED Muscle Aching, ED Weakness [facility], My [facility] Additional Instructions Please follow up with your primary care physician in the next 1-3 days for re- evaluation. The cause of your symptoms is unclear at this time. Your flu tests were negative however given your symptoms and the high number of cases in the community we will treat you with Tamiflu. Otherwise, your exam, EKG, chest xray, and lab results did not show signs of an emergent condition at this time. Acetaminophen for pain and fevers as needed. Tamiflu as directed. Return to the emergency department for worsening symptoms as described in the accompanying instructions. Problem Qualifiers
[2017-11-30] MEDS ORDERED: OSELTAMIVIR PHOSPHATE 6 MG/ML SUSP PO STA (22:47)
[2017-11-30 22:55] VITALS: BP 117/69; PULSE 70; O2SAT 92
== END 2017-11-30 22:57 | disposition home or self-care (01) ==
LOC: C.EDB 16:22 → C.EDC 22:57
DX: M79.1 Myalgia (principal); R53.1 Weakness; R11.10 Vomiting, unspecified; R06.02 Shortness of breath; R05 Cough; I48.2 Chronic atrial fibrillation; I50.41 Acute combined systolic (congestive) and diastolic (congestive) heart failure; N18.9 Chronic kidney disease, unspecified; E11.65 Type 2 diabetes mellitus with hyperglycemia; E11.22 Type 2 diabetes mellitus with diabetic chronic kidney disease; I51.9 Heart disease, unspecified; E07.9 Disorder of thyroid, unspecified; Z95.0 Presence of cardiac pacemaker; Z79.01 Long term (current) use of anticoagulants; Z79.4 Long term (current) use of insulin; Z83.3 Family history of diabetes mellitus; Z82.49 Family history of ischemic heart disease and other diseases of the circulatory system; Z84.1 Family history of disorders of kidney and ureter

== ENCOUNTER → 2017-12-09 | Outpatient (CLI) | payer OTHER ==
[~2017-12-09] MED LIST changes: -COMPOUND MEDICATION; -GABA-112 PO; -IPRA1AER2 INH; -MECL1TAB42 PO; -OMEP20CA9 PO; +OSEL75CA23 PO; -TRAM-10 PO; -TRAZ50TA35 PO
[2017-12-09 12:19] LABS: HEMATOCRIT 50.2 % (42-52); HEMOGLOBIN 16.4 g/dL (14.0-18.0); MEAN CELL VOLUME 96.5 fL (80-100); MEAN CORPUSCULAR HEMOGLOBIN 31.5 pg (25-34); MEAN CORPUSCULAR HGB CONC 32.7 g/dl (32-36); MEAN PLATELET VOLUME 10.3 fL (7.4-10.4); PLATELET COUNT 137 K/uL (130-400); RED CELL DISTRIBUTION WIDTH CV 14.7 % (11.5-14.5); RED CELL DISTRIBUTION WIDTH SD 51.7 fL (36.4-46.3); WHITE BLOOD COUNT 10.12 K/uL (4.8-10.8)
[2017-12-09 12:29] LABS: HEMOGLOBIN A1C 6.7 % (4.5-5.6)
[2017-12-09 12:35] LABS: ALBUMIN 3.4 gm/dl (3.4-5.0); BLOOD UREA NITROGEN 45 mg/dl (7-18); CALCIUM 9.1 mg/dl (8.5-10.1); CARBON DIOXIDE 31 mmol/L (21-32); CREATININE 1.58 mg/dl (0.60-1.40); GLUCOSE 76 mg/dl (70-99); POTASSIUM 4.2 mmol/L (3.5-5.1); SODIUM 139 mmol/L (136-145)
[2017-12-09 12:47] LABS: LDL CHOLESTEROL (DIRECT) 47 mg/dl; PHOSPHORUS 2.7 mg/dl (2.5-4.9)
== END | disposition home or self-care (01) ==
LOC: C.LAB1850 10:21
PROVIDERS: ATTEND Internal Medicine
DX: E11.9 Type 2 diabetes mellitus without complications (principal); D64.9 Anemia, unspecified; N18.4 Chronic kidney disease, stage 4 (severe); E03.9 Hypothyroidism, unspecified; E78.5 Hyperlipidemia, unspecified

== ENCOUNTER → 2018-01-07 | Outpatient (CLI) | payer OTHER ==
[2018-01-07 12:12] LABS: HEMATOCRIT 50.2 % (42-52); HEMOGLOBIN 16.6 g/dL (14.0-18.0); MEAN CELL VOLUME 94.9 fL (80-100); MEAN CORPUSCULAR HEMOGLOBIN 31.4 pg (25-34); MEAN CORPUSCULAR HGB CONC 33.1 g/dl (32-36); MEAN PLATELET VOLUME 9.9 fL (7.4-10.4); PLATELET COUNT 110 K/uL (130-400); RED CELL DISTRIBUTION WIDTH SD 51.7 fL (36.4-46.3); WHITE BLOOD COUNT 6.95 K/uL (4.8-10.8)
[2018-01-07 12:27] LABS: BLOOD UREA NITROGEN 49 mg/dl (7-18); CALCIUM 9.2 mg/dl (8.5-10.1); CARBON DIOXIDE 31 mmol/L (21-32); CREATININE 1.91 mg/dl (0.60-1.40); GLUCOSE 194 mg/dl (70-99); POTASSIUM 3.9 mmol/L (3.5-5.1); SODIUM 134 mmol/L (136-145)
== END | disposition home or self-care (01) ==
LOC: C.LAB1850 10:10
PROVIDERS: ATTEND Internal Medicine
DX: E11.21 Type 2 diabetes mellitus with diabetic nephropathy (principal)

== ENCOUNTER → 2018-03-17 | Outpatient (CLI) | payer OTHER ==
[~2018-03-17] MED LIST changes: +APIX1TAB3 PO; +ASPI-461 PO; +INSU100I23 SC; +IPRA1AER2 INH; +POTA-639 PO; -POTA20TA16 PO
[2018-03-17 12:36] LABS: HEMOGLOBIN 15.6 g/dL (14.0-18.0); MEAN CELL VOLUME 95.9 fL (80-100); MEAN CORPUSCULAR HEMOGLOBIN 31.8 pg (25-34); MEAN CORPUSCULAR HGB CONC 33.2 g/dl (32-36); MEAN PLATELET VOLUME 9.5 fL (7.4-10.4); PLATELET COUNT 124 K/uL (130-400); RED CELL DISTRIBUTION WIDTH CV 16.1 % (11.5-14.5); RED CELL DISTRIBUTION WIDTH SD 56.5 fL (36.4-46.3); WHITE BLOOD COUNT 7.27 K/uL (4.8-10.8)
[2018-03-17 12:56] LABS: HEMOGLOBIN A1C 7.2 % (4.5-5.6)
[2018-03-17 13:01] LABS: ALBUMIN 3.8 gm/dl (3.4-5.0); BLOOD UREA NITROGEN 29 mg/dl (7-18); CALCIUM 9.5 mg/dl (8.5-10.1); CARBON DIOXIDE 29 mmol/L (21-32); CREATININE 1.85 mg/dl (0.60-1.40); GLUCOSE 175 mg/dl (70-99); PHOSPHORUS 3.1 mg/dl (2.5-4.9); POTASSIUM 4.2 mmol/L (3.5-5.1); SODIUM 137 mmol/L (136-145)
== END | disposition home or self-care (01) ==
LOC: C.LAB1850 10:21
PROVIDERS: ATTEND Physician Assistant
DX: N18.4 Chronic kidney disease, stage 4 (severe) (principal); E11.9 Type 2 diabetes mellitus without complications

== ENCOUNTER 2018-03-18 12:17 | Emergency (ER) | payer OTHER ==
[~2018-03-18] VITALS: Ht 172.7 cm; Wt 100.2 kg
[~2018-03-18 12:17] MED LIST changes: -APIX1TAB3 PO; -ASPI-461 PO; -INSU100I23 SC; -IPRA1AER2 INH
[2018-03-18 12:20] VITALS: TEMP 36.5; Ht 172.7 cm; Wt 100.2 kg
[2018-03-18] MEDS ORDERED: SODIUM CHLORIDE 0.9% 1000ML 250 ML IV STA ×2 (12:43→13:27)
--- NOTE | 2018-03-18 12:48 | EMERGENCY ROOM VISIT NOTE ---
History Report prepared by Stephanie: Elan Suarez Under the Supervision of: Dr. Rigoberto Ramirez M.D. First contact with patient: 12:32 Chief Complaint: CARDIAC ASSESSMENT Stated Complaint: HYPOTENSION History of Present Illness The patient is a 77 year old male who presents to the Emergency Room with complaints of constant low blood pressure and dizziness starting this morning. The patient's family states that the patient was feeling fine this morning, and then after he went outside to do gardening in the sun, and then he became dizzy and short of breath. He then came inside and took his blood pressure medications , and he also took a nitro for his shortness of breath. The patient does not have any headache, fever, cough, leg pain, leg swelling, and hematuria. His family notes that yesterday he had routine blood work done yesterday, and he has a history of diabetes and a pacemaker in place. The family states that the patient is breathing better now. Source of History: patient, family Onset: this morning Position: other (global) Quality: other (low blood pressure and dizziness.) Timing: constant Associated Symptoms: No fevers, No headache, No cough Review of Systems See HPI for pertinent positives & negatives. A total of 10 systems reviewed and were otherwise negative. 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 Nurse's notes were reviewed and I agree with. Troponin is chronically mildly elevated Family History Diabetes mellitus FH: cancer Heart disease Hypertension Kidney disease Kidney stones Social History Smoking Status: Never Smoker Alcohol Use: none Drug Use: none Marital Status: Housing Status: lives with family Occupation Status: retired Current/Historical Medications Scheduled Allopurinol (Zyloprim), 100 MG PO BID Amiodarone Hcl (Cordarone), 200 MG PO DAILY Apixaban (Eliquis), 5 MG PO BID Aspirin (Aspirin), 81 MG PO DAILY Bumetanide (Bumex), 2 MG PO BID Calcitriol (Calcitriol), 0.5 MCG PO 3XWK Carvedilol (Coreg), 6.25 MG PO BIDM Insulin Aspart (Novolog Flexpen), 20-25 UNITS SC TIDM Insulin Glargine (Basaglar Kwikpen), 35 UNITS SC HS Isosorbide Mononitrate Ext Rel (Imdur Ext Rel), 60 MG PO QAM Levothyroxine Sodium (Levothyroxine Sodium), 75 MCG PO DAILY Metolazone (Zaroxolyn), 2.5 MG PO WK Potassium Ext Rel (Klor-Con), 40 MEQ PO BID Simvastatin (Zocor), 40 MG PO HS Spironolactone (Aldactone), 25 MG PO QAM Scheduled PRN Diclofenac Sodium (Topical) (Voltaren 1% Top Gel), 1 APPLN TOP QID PRN for Pain Ipratropium-Albuterol (Combivent Respimat), 1 PUFFS INH Q6 PRN for PRN Nitroglycerin (Nitrostat), 0.4 MG UT UD PRN for Chest Pain Zolpidem Tartrate (Ambien), 0.25-0.5 TAB PO HS PRN for Insomnia Allergies Coded Allergies: No Known Allergies (Verified , 03/18/18) Physical Exam Vital Signs Date Time Temp Pulse Resp B/P (MAP) Pulse Ox O2 Delivery O2 Flow Rate FiO2 03/18/18 15:49 70 16 90/58 95 03/18/18 14:47 70 22 90/54 93 Nasal Cannula 2.0 03/18/18 14:45 70 22 78/46 93 Nasal Cannula 2.0 03/18/18 14:30 70 90/58 94 Nasal Cannula 2.0 03/18/18 14:08 70 29 115/60 03/18/18 13:45 70 22 03/18/18 13:32 81/46 03/18/18 13:31 79/45 03/18/18 13:30 70 16 03/18/18 13:21 70 24 77/50 95 Nasal Cannula 2.0 03/18/18 13:15 71 14 77/50 95 Nasal Cannula 2.0 03/18/18 13:00 70 75/47 93 03/18/18 12:38 88/58 03/18/18 12:37 70 24 92 03/18/18 12:32 71 25 92 03/18/18 12:31 71/50 03/18/18 12:29 85/56 03/18/18 12:28 71 03/18/18 12:24 90/53 03/18/18 12:20 94 Nasal Cannula 03/18/18 12:20 36.5 71 14 90/53 94 Nasal Cannula 2.0 Physical Exam General: Non-ill appearing older male in no acute distress. HEENT: Normal cephalic atraumatic. Pupils are equal round and reactive to light. Extraocular movements are intact. Oropharynx is pink with moist mucous membranes. No swelling of the mouth lips or tongue. Neck: Supple with a midline trachea. No meningeal signs or stiffness, no JVD or bruits. No Stridor. Chest: Clear to auscultation bilaterally. No wheezes or rhonchi. No increased work of breathing. Heart: regular rate and rhythm. Abdomen: Soft nontender, nondistended without rebound guarding or rigidity. Extremities: Trace pedal edema in the lower extremities No cyanosis or clubbing. No calf tenderness or assymetry Spine/Back. Non tender to palpation. No CVA tenderness Skin: Good turgor without rashes. Neurologic exam: Cranial nerves two through 12 are intact. Motor and sensation are intact and symmetrical throughout. Medical Decision & Procedures ER Provider Diagnostic Interpretation: Radiology results as stated below per my review and radiologist interpretation: CHEST ONE VIEW PORTABLE CLINICAL HISTORY: Chest pain. Hypotension. COMPARISON STUDY: Chest CT November 07, 2017 and chest radiograph December 10, 2017. FINDINGS: A left subclavian biventricular pacer/AICD is in place. Marked cardiomegaly is noted. There is no pneumothorax. No pleural effusion is identified. There is pulmonary vascular congestion without overt pulmonary edema. Hazy bibasilar opacities are present. IMPRESSION: 1. Pulmonary vascular congestion without overt pulmonary edema. 2. Mild bibasilar opacities. Electronically signed by: Marco Walters M.D. 03/18/2018 1:05 PM Dictated Date/Time: 03/18/2018 1:04 PM Laboratory Results 03/18/18 13:00 Red Blood Count 4.68, Mean Corpuscular Volume 96.2, Mean Corpuscular Hemoglobin 32.5, Mean Corpuscular Hemoglobin Concent 33.8, Mean Platelet Volume 9.7, Neutrophils (%) (Auto) 73.3, Lymphocytes (%) (Auto) 8.9, Monocytes (%) (Auto) 15.5, Eosinophils (%) (Auto) 1.7, Basophils (%) (Auto) 0.3, Neutrophils # (Auto ) 5.13, Lymphocytes # (Auto) 0.62, Monocytes # (Auto) 1.08, Eosinophils # (Auto ) 0.12, Basophils # (Auto) 0.02 03/18/18 13:00 Test 03/18/18 13:00 03/18/18 13:03 White Blood Count 6.99 K/uL (4.8-10.8) Red Blood Count 4.68 M/uL (4.7-6.1) Hemoglobin 15.2 g/dL (14.0-18.0) Hematocrit 45.0 % (42-52) Mean Corpuscular Volume 96.2 fL (80-100) Mean Corpuscular Hemoglobin 32.5 pg (25-34) Mean Corpuscular Hemoglobin Concent 33.8 g/dl (32-36) Platelet Count 120 K/uL (130-400) Mean Platelet Volume 9.7 fL (7.4-10.4) Neutrophils (%) (Auto) 73.3 % Lymphocytes (%) (Auto) 8.9 % Monocytes (%) (Auto) 15.5 % Eosinophils (%) (Auto) 1.7 % Basophils (%) (Auto) 0.3 % Neutrophils # (Auto) 5.13 K/uL (1.4-6.5) Lymphocytes # (Auto) 0.62 K/uL (1.2-3.4) Monocytes # (Auto) 1.08 K/uL (0.11-0.59) Eosinophils # (Auto) 0.12 K/uL (0-0.5) Basophils # (Auto) 0.02 K/uL (0-0.2) RDW Standard Deviation 56.0 fL (36.4-46.3) RDW Coefficient of Variation 16.0 % (11.5-14.5) Immature Granulocyte % (Auto) 0.3 % Immature Granulocyte # (Auto) 0.02 K/uL (0.00-0.02) Prothrombin Time 11.1 SECONDS (9.0-12.0) Prothromb Time International Ratio 1.1 (0.9-1.1) Activated Partial Thromboplast Time 25.2 SECONDS (21.0-31.0) Partial Thromboplastin Ratio 1.0 Anion Gap 7.0 mmol/L (3-11) Est Creatinine Clear Calc Drug Dose 32.8 ml/min Estimated GFR () 32.2 Estimated GFR (Non- 27.8 BUN/Creatinine Ratio 15.2 (10-20) Calcium Level 8.6 mg/dl (8.5-10.1) Total Bilirubin 1.1 mg/dl (0.2-1) Direct Bilirubin 0.3 mg/dl (0-0.2) Aspartate Amino Transf (AST/SGOT) 27 U/L (15-37) Alanine Aminotransferase (ALT/SGPT) 27 U/L (12-78) Alkaline Phosphatase 69 U/L (45-117) Total Creatine Kinase 194 U/L (39-308) Creatine Kinase MB 3.3 ng/ml (0.5-3.6) Creatine Kinase MB Ratio 1.7 (0-3.0) Pro-B-Type Natriuretic Peptide 3092 pg/ml (0-900) Total Protein 7.0 gm/dl (6.4-8.2) Albumin 3.0 gm/dl (3.4-5.0) Lipase 205 U/L (73-393) Bedside Troponin I 0.060 ng/ml (0-0.045) Laboratory studies as stated above per my review. Medications Administered Medications (Trade) Dose Ordered Sig/Rajesh Route Start Time Stop Time Status Last Admin Dose Admin Sodium Chloride 250 ml @ 999 mls/hr Q16M STAT IV 03/18/18 12:43 03/18/18 12:58 DC 03/18/18 12:43 999 MLS/HR Sodium Chloride 250 ml @ 999 mls/hr Q16M STAT IV 03/18/18 13:27 03/18/18 13:42 DC 03/18/18 13:30 999 MLS/HR Sodium Chloride 1,000 ml @ 100 mls/hr Q10H STAT IV 03/18/18 13:27 03/18/18 16:20 DC 03/18/18 13:51 100 MLS/HR ECG Per My Interpretation Indication: SOB/dyspnea, other (hypotension) Rate (beats per minute): 75 Rhythm: other (Ventricular paced) Findings: no acute ischemic change Comparison ECG Date: 11/30/17 Change: no significant change ED Course 1232: Past medical records reviewed. The patient was evaluated in room A10, and a complete history and physical examination were performed. 1243: Sodium Chloride 250 ml @ 999 mls/hr IV 1325: Upon reevaluation, the patient is doing well. I discussed the results and treatment plan with the patient. He and the family verbalized agreement of the treatment plan. The patient will be evaluated for further management. 1327: Sodium Chloride 1000 ml @ 100 mls/hr IV, Sodium Chloride 250 ml @ 999 mls/ hr IV 1330: Discussed the patient's case with Dr. Fran KENYON Hospitalist. The patient will be evaluated for further management. 1351: I reassessed the patient, and he was comfortable talking to the hospitalist. He appears to be in no distress. 1424: I talked to the hospitalist KAYE, and she feels that the patient can go home. I reevaluated the patient, and his blood pressure was normal, and he was asymptomatic. He feels like going home, and his is going to drop the grandkid off at school which will take an hour. We are going to watch the patient for an hour, and id he is stable, then he will go home. 1525: Upon reevaluation, the patient is doing well. I discussed the results and treatment plan with him. He verbalized agreement of the treatment plan. The patient was discharged home. Medical Decision Differentials include, but are not limited to; hypotension, dehydration, cardiac disease, medication side effect, and arrhythmia This patient comes in as described above. He was placed in room A-10. He comes in after being found hypotensive. He does take blood pressure medication which he takes sporadically he took yesterday he was out in the sun and did not feel well he said that he took a nitroglycerin and felt worse when the paramedics arrived his blood pressure was in the 70s they given 500 cc normal saline bolus. He does have an EF of 20% or so. Upon arrival to ER his blood pressures in the 90s however when I see him he is in the 70s although looks well and is essentially asymptomatic at this point. He has had no chest pain or shortness of breath. EKG was obtained which shows a paced rhythm without acute ischemic changes or ectopy. Chest x-ray shows no acute CHF. His troponin was found to be minimally elevated 0.06 in reviewing his chart this is chronic for him. BUN and creatinine are more elevated compared to yesterday. This also suggests a prerenal component. While he was here he was given additional 250 cc bolus I reassessed and was given an additional 250 cc normal IV saline bolus. His blood pressure would go up and down in the 90s going down even into the 70s or lower but he was asymptomatic. I consulted the [facility] team to see him they saw him and talked him his blood pressure remains now above 100 and he is asymptomatic they feel he can go home most likely is related to hydration as well as blood pressure medication use. The patient is asymptomatic and wants to go home and not be admitted. He should his one blood pressure medicine and he has close follow-up with his social media coordinator. Medication Reconcilliation Current Medication List: was personally reviewed by me Blood Pressure Screening Patient's blood pressure: Low blood pressure Blood pressure disposition: Referred to PCP Consults Time Called: 1325 Consulting Physician: Dr. Fran KENYON Hospitalist Returned Call: 1330 Discussed the patient's case with Dr. Fran KENYON Hospitalist. The patient will be evaluated for further management. Impression Primary Impression: Hypotension Additional Impressions: Dehydration Medication side effect Elevated troponin Scribe Attestation The scribe's documentation has been prepared under my direction and personally reviewed by me in its entirety. I confirm that the note above accurately reflects all work, treatment, procedures, and medical decision making performed by me. Departure Information Dispostion Home / Self-Care Referrals Noel Reid M.D. (PCP) Forms IMPORTANT VISIT INFORMATION Patient Instructions My [facility] Additional Instructions Ensure you are drinking adequate fluids. Do not take your carvedilol until you check with your social media coordinator Do not take nitroglycerin if your blood pressure is low -less than 100 If you need to take nitroglycerin you should be rechecked regardless in the ER Return to the ER if: Worsening symptoms, lightheadedness or dizziness, chest pain, short of breath, any new problems or concerns Follow-up with your doctor tomorrow or Thursday for recheck or return to the ER symptoms worsen Problem Qualifiers
--- NOTE | 2018-03-18 13:07 | DIAGNOSTIC IMAGING REPORT ---
CHEST ONE VIEW PORTABLE CLINICAL HISTORY: Chest pain. Hypotension. COMPARISON STUDY: Chest CT November 07, 2017 and chest radiograph December 10, 2017. FINDINGS: A left subclavian biventricular pacer/AICD is in place. Marked cardiomegaly is noted. There is no pneumothorax. No pleural effusion is identified. There is pulmonary vascular congestion without overt pulmonary edema. Hazy bibasilar opacities are present. IMPRESSION: 1. Pulmonary vascular congestion without overt pulmonary edema. 2. Mild bibasilar opacities. Electronically signed by: Marco Walters M.D. 03/18/2018 1:05 PM Dictated Date/Time: 03/18/2018 1:04 PM
[2018-03-18 13:18] LABS: BASO % 0.3 %; BASO ABS # 0.02 K/uL (0-0.2); EOS % 1.7 %; EOS ABS # 0.12 K/uL (0-0.5); HEMOGLOBIN 15.2 g/dL (14.0-18.0); IG# 0.02 K/uL (0.00-0.02); LYMPH % 8.9 %; LYMPH ABS # 0.62 K/uL (1.2-3.4); MEAN CELL VOLUME 96.2 fL (80-100); MEAN CORPUSCULAR HEMOGLOBIN 32.5 pg (25-34); MEAN CORPUSCULAR HGB CONC 33.8 g/dl (32-36); MEAN PLATELET VOLUME 9.7 fL (7.4-10.4); MONO % 15.5 %; MONO ABS # 1.08 K/uL (0.11-0.59); NEUT % 73.3 %; NEUT ABS # 5.13 K/uL (1.4-6.5); PLATELET COUNT 120 K/uL (130-400); WHITE BLOOD COUNT 6.99 K/uL (4.8-10.8)
[2018-03-18] MEDS ORDERED: SODIUM CHLORIDE 0.9% 1000ML 1,000 ML IV STA (13:27)
[2018-03-18 13:30] LABS: INR 1.1 (0.9-1.1); PTT PATIENT 25.2 SECONDS (21.0-31.0)
[2018-03-18 13:34] LABS: CALCIUM 8.6 mg/dl (8.5-10.1); CREATININE 2.23 mg/dl (0.60-1.40); POTASSIUM 4.4 mmol/L (3.5-5.1)
--- NOTE | 2018-03-18 13:37 | History and Physical ---
History & Physical Date & Time of Service: March 18, 2018 at 13:35 Chief Complaint: Hypotension Primary Care Physician: Noel Reid M.D. History of Present Illness This is a 77 yo M with PMHx of combined systolic and diastolic CHF with EF of 20 -25%, atrial fibrillation, h/o ventricular tachycardia, pacemaker/ICD status, T2DM, CKD stage II, hypothyroidism, pulmonary HTN, mild aortic stenosis, thrombocytopenia , mod-severe mitral regurgitation, CAD s/p stents in the past, ischemic cardiomyopathy, HTN, HLD who presents to the ER after working in his garden and became short of breath. Past Medical/Surgical History Medical Problems: (1) Abdominal pain (2) Acute renal failure (3) Acute renal insufficiency (4) Acute systolic heart failure (5) REY (acute kidney injury) (6) Arthritis (7) Cellulitis, abdominal wall (8) Chest pain (9) Chest pain (10) CHF (congestive heart failure) (11) CHF (congestive heart failure) (12) CHF exacerbation (13) Chronic renal insufficiency (14) Chronic renal insufficiency (15) Dehydration (16) Diabetes mellitus (17) Dizziness (18) Dizziness (19) Dizziness (20) Dyspnea (21) Elevated d-dimer (22) Elevated troponin (23) Elevated troponin (24) Elevated troponin (25) Elevated troponin (26) Fever (27) Gastroesophageal reflux disease (28) Generalized weakness (29) Gram positive septicemia (30) Headache (31) Headache (32) Heart disease (33) Hernia of abdominal wall (34) History of - hypertension (35) Hypertension (36) Hypokalemia (37) Hypomagnesemia (38) Hypoxia (39) Implantation of cardiac pacemaker (40) Influenza A (41) Intravenous infusion line dysfunction (42) Kidney stone (43) Laceration of right index finger w/o foreign body w/o damage to nail (44) Left sided chest pain (45) Lightheadedness (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 (47) Mechanical complication of pacemaker (48) Myalgia (49) Near syncope (50) Near syncope (51) Need for intravenous access (52) Nephrolithiasis (53) Pacemaker lead fracture (54) Pacemaker malfunction (55) Pneumonia (56) Pneumonia (57) Pneumonia (58) Precordial chest pain (59) Pulmonary edema (60) Renal colic (61) Renal insufficiency (62) Shortness of breath (63) Supratherapeutic INR (64) Supratherapeutic INR (65) Surgical wound hemorrhage after dental procedure (66) Syncope (67) Thyroid dysfunction (68) Two stents (69) Unsteady gait (70) Vertigo (71) Vertigo (72) Weakness Family History Diabetes mellitus FH: cancer Heart disease Hypertension Kidney disease Kidney stones Social History Smoking Status: Never Smoker Drug Use: none Marital Status: Housing status: lives with family Occupational Status: retired Immunizations History of Influenza Vaccine: No Influenza Vaccine Date: Jul 15, 2010 History of Tetanus Vaccine?: Yes Tetanus Immunization Date: Jul 15, 2010 History of Pneumococcal: Yes Pneumococcal Date: March 03, 2009 History of Hepatitis B Vaccine: No Allergies Coded Allergies: No Known Allergies (Verified , 03/18/18) Home Medications Scheduled Allopurinol (Zyloprim), 100 MG PO BID Amiodarone Hcl (Cordarone), 200 MG PO DAILY Apixaban (Eliquis), 5 MG PO BID Aspirin (Aspirin), 81 MG PO DAILY Bumetanide (Bumex), 2 MG PO BID Calcitriol (Calcitriol), 0.5 MCG PO 3XWK Carvedilol (Coreg), 6.25 MG PO BIDM Insulin Aspart (Novolog Flexpen), 20-25 UNITS SC TIDM Insulin Glargine (Basaglar Kwikpen), 35 UNITS SC HS Isosorbide Mononitrate Ext Rel (Imdur Ext Rel), 60 MG PO QAM Levothyroxine Sodium (Levothyroxine Sodium), 75 MCG PO DAILY Metolazone (Zaroxolyn), 2.5 MG PO WK Potassium Ext Rel (Klor-Con), 40 MEQ PO BID Simvastatin (Zocor), 40 MG PO HS Spironolactone (Aldactone), 25 MG PO QAM Scheduled PRN Diclofenac Sodium (Topical) (Voltaren 1% Top Gel), 1 APPLN TOP QID PRN for Pain Ipratropium-Albuterol (Combivent Respimat), 1 PUFFS INH Q6 PRN for PRN Nitroglycerin (Nitrostat), 0.4 MG UT UD PRN for Chest Pain Zolpidem Tartrate (Ambien), 0.25-0.5 TAB PO HS PRN for Insomnia Physical Exam Vital Signs Date Time Temp Pulse Resp B/P (MAP) Pulse Ox O2 Delivery O2 Flow Rate FiO2 03/18/18 13:21 70 24 77/50 95 Nasal Cannula 2.0 03/18/18 13:15 71 14 77/50 95 Nasal Cannula 2.0 03/18/18 13:00 70 75/47 93 03/18/18 12:38 88/58 03/18/18 12:37 70 24 92 03/18/18 12:32 71 25 92 03/18/18 12:31 71/50 03/18/18 12:29 85/56 03/18/18 12:28 71 03/18/18 12:24 90/53 03/18/18 12:20 94 Nasal Cannula 03/18/18 12:20 36.5 71 14 90/53 94 Nasal Cannula 2.0 Diagnostics Laboratory Results Results Past 24 Hours Test 03/18/18 12:43 03/18/18 13:00 03/18/18 13:03 Range/Units Creatine Kinase MB Ratio 0-3.0 White Blood Count 6.99 4.8-10.8 K/uL Red Blood Count 4.68 4.7-6.1 M/uL Hemoglobin 15.2 14.0-18.0 g/dL Hematocrit 45.0 42-52 % Mean Corpuscular Volume 96.2 80-100 fL Mean Corpuscular Hemoglobin 32.5 25-34 pg Mean Corpuscular Hemoglobin Concent 33.8 32-36 g/dl Platelet Count 120 130-400 K/uL Mean Platelet Volume 9.7 7.4-10.4 fL Neutrophils (%) (Auto) 73.3 % Lymphocytes (%) (Auto) 8.9 % Monocytes (%) (Auto) 15.5 % Eosinophils (%) (Auto) 1.7 % Basophils (%) (Auto) 0.3 % Neutrophils # (Auto) 5.13 1.4-6.5 K/uL Lymphocytes # (Auto) 0.62 1.2-3.4 K/uL Monocytes # (Auto) 1.08 0.11-0.59 K/uL Eosinophils # (Auto) 0.12 0-0.5 K/uL Basophils # (Auto) 0.02 0-0.2 K/uL RDW Standard Deviation 56.0 36.4-46.3 fL RDW Coefficient of Variation 16.0 11.5-14.5 % Immature Granulocyte % (Auto) 0.3 % Immature Granulocyte # (Auto) 0.02 0.00-0.02 K/uL Prothrombin Time 11.1 9.0-12.0 SECONDS Prothromb Time International Ratio 1.1 0.9-1.1 Activated Partial Thromboplast Time 25.2 21.0-31.0 SECONDS Partial Thromboplastin Ratio 1.0 Sodium Level 137 136-145 mmol/L Potassium Level 4.4 3.5-5.1 mmol/L Chloride Level 102 98-107 mmol/L Carbon Dioxide Level 28 21-32 mmol/L Anion Gap 7.0 3-11 mmol/L Blood Urea Nitrogen 34 7-18 mg/dl Creatinine 2.23 0.60-1.40 mg/dl Est Creatinine Clear Calc Drug Dose 32.8 ml/min Estimated GFR () 32.2 Estimated GFR (Non- 27.8 BUN/Creatinine Ratio 15.2 10-20 Random Glucose 97 70-99 mg/dl Calcium Level 8.6 8.5-10.1 mg/dl Bedside Troponin I 0.060 0-0.045 ng/ml Impression Resuscitation Status
[2018-03-18] MEDS ORDERED: IPRA1AER2 INH (13:50)
[2018-03-18] MEDS ORDERED: APIX1TAB3 PO (13:50)
[2018-03-18] MEDS ORDERED: INSU100I23 SC (13:50)
[2018-03-18] MEDS ORDERED: ASPI-461 PO (13:50)
[2018-03-18 14:26] LABS: CKMB 3.3 ng/ml (0.5-3.6)
--- NOTE | 2018-03-18 14:59 | Medical Consult ---
Consultation Date of Consultation: March 18, 2018. 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 Discussion was held with the patient with assistance of Ipad lipstick molder. No family was present at bedside. The patient notes he took his blood pressure medications including carvedilol, bumex, spironolactone and amiodarone this morning around 10:00am. Last evening he took his weekly dose of metolazone 2.5 mg. The patient notes he does not take his medication routinely, and actually cannot recall the last time he has taken all these the way they are prescribed. He does state he took carvedilol today and normally does not take this medication routinely. He then proceeded to take his blood pressure and saw this was 60/40. He walked out into his garden, where he felt slightly short of breath, and sat down to drink some coffee. In his [place] [facility], it is well believed that drinking coffee increases your blood pressure, and so thought this would make him feel better. He denies any chest pain, tightness, heaviness at all. He reports having an abrupt left arm pain that went away within 1 minute, but denies pain radiation anywhere else. His then told him to take a nitroglycerine tablet so he obliged. Then EMS was called and he was brought to our ED. The patient follows with Dr. Birmingham as an outpatient, and is scheduled to see Cora Harris on 03/24. Past Medical/Surgical History Medical Problems: (1) Aortic stenosis (2) Arthritis (3) Atrial fibrillation (4) Chronic combined systolic and diastolic CHF (congestive heart failure) (5) CKD (chronic kidney disease), stage III (6) Diabetes mellitus (7) GERD (gastroesophageal reflux disease) (8) CAD s/p 2 cardiac stents (9) Mitral regurg (10) Hernia of abdominal wall (11) HLD (hyperlipidemia) (12) Hypothyroidism (13) Implantation of cardiac pacemaker (14) Ischemic cardiomyopathy (15) Pulmonary hypertension Surgical Problems: (1) S/P cardiac pacemaker procedure Family History Diabetes mellitus FH: cancer Heart disease Hypertension Kidney disease Kidney stones Social History Smoking Status: Never Smoker Drug Use: none Marital Status: Housing Status: lives with family Occupation Status: retired Allergies Coded Allergies: No Known Allergies (Verified , 03/18/18) Current Inpatient Medications Current Inpatient Medications Medications (Trade) Dose Ordered Sig/Rajesh Route Start Time Stop Time Status Last Admin Dose Admin Sodium Chloride 1,000 ml @ 100 mls/hr Q10H STAT IV 03/18/18 13:27 03/18/18 23:26 03/18/18 13:51 100 MLS/HR Review of Systems Constitutional: No fever, No chills, No sweats, No fatigue Eyes: No worsening of vision, No redness, No diplopia ENT: No nasal symptoms, No trouble swallowing Respiratory: + problem reported (see HPI), No cough, No dyspnea on exertion, No dyspnea at rest Cardiovascular: + edema (chronic lower extremities, appears better today compared to yesterday), No chest pain Abdomen: + constipation (chronic, last BM today, takes a stool softener as needed), No diarrhea Genitourinary - Male: No hematuria, No dysuria Neurologic: No numbness/tingling, No balance problems Psychiatric: No depression symptoms, No anxiety Endocrine: No fatigue Integumentary: No rash, No itch Physical Exam Date Time Temp Pulse Resp B/P (MAP) Pulse Ox O2 Delivery O2 Flow Rate FiO2 03/18/18 13:45 70 22 03/18/18 13:32 81/46 03/18/18 13:31 79/45 03/18/18 13:30 70 16 03/18/18 13:21 70 24 77/50 95 Nasal Cannula 2.0 03/18/18 13:15 71 14 77/50 95 Nasal Cannula 2.0 03/18/18 13:00 70 75/47 93 03/18/18 12:38 88/58 03/18/18 12:37 70 24 92 03/18/18 12:32 71 25 92 03/18/18 12:31 71/50 03/18/18 12:29 85/56 03/18/18 12:28 71 03/18/18 12:24 90/53 03/18/18 12:20 94 Nasal Cannula 5/24/18 12:20 36.5 71 14 90/53 94 Nasal Cannula 2.0 General Appearance: WD/WN, no apparent distress Head: normocephalic, atraumatic Eyes: PERRL, EOMI ENT: hearing grossly normal, pharynx normal Neck: supple, no JVD Respiratory/Chest: lungs clear, no respiratory distress, no accessory muscle use, + pertinent finding (on 2 L via NC ) Cardiovascular: regular rate, rhythm, normal peripheral pulses, + systolic murmur Abdomen/GI: normal bowel sounds, non tender, soft Back: normal inspection Extremities/Musculoskelatal: normal inspection, no calf tenderness, + pedal edema (trace pitting R>L lower extremities), + pertinent finding (area of pain w palpation over the R lateral leg adjacent to martin, but no apparent lesion, abraision or ecchymosis. ) Neurologic/Psych: alert, normal mood/affect, oriented x 3 Skin: normal color, warm/dry Laboratory Results Last 24 Hours Test 03/18/18 13:00 03/18/18 13:03 White Blood Count 6.99 K/uL Red Blood Count 4.68 M/uL Hemoglobin 15.2 g/dL Hematocrit 45.0 % Mean Corpuscular Volume 96.2 fL Mean Corpuscular Hemoglobin 32.5 pg Mean Corpuscular Hemoglobin Concent 33.8 g/dl Platelet Count 120 K/uL Mean Platelet Volume 9.7 fL Neutrophils (%) (Auto) 73.3 % Lymphocytes (%) (Auto) 8.9 % Monocytes (%) (Auto) 15.5 % Eosinophils (%) (Auto) 1.7 % Basophils (%) (Auto) 0.3 % Neutrophils # (Auto) 5.13 K/uL Lymphocytes # (Auto) 0.62 K/uL Monocytes # (Auto) 1.08 K/uL Eosinophils # (Auto) 0.12 K/uL Basophils # (Auto) 0.02 K/uL RDW Standard Deviation 56.0 fL RDW Coefficient of Variation 16.0 % Immature Granulocyte % (Auto) 0.3 % Immature Granulocyte # (Auto) 0.02 K/uL Prothrombin Time 11.1 SECONDS Prothromb Time International Ratio 1.1 Activated Partial Thromboplast Time 25.2 SECONDS Partial Thromboplastin Ratio 1.0 Sodium Level 137 mmol/L Potassium Level 4.4 mmol/L Chloride Level 102 mmol/L Carbon Dioxide Level 28 mmol/L Anion Gap 7.0 mmol/L Blood Urea Nitrogen 34 mg/dl Creatinine 2.23 mg/dl Est Creatinine Clear Calc Drug Dose 32.8 ml/min Estimated GFR () 32.2 Estimated GFR (Non- 27.8 BUN/Creatinine Ratio 15.2 Random Glucose 97 mg/dl Calcium Level 8.6 mg/dl Total Bilirubin 1.1 mg/dl Direct Bilirubin 0.3 mg/dl Aspartate Amino Transf (AST/SGOT) 27 U/L Alanine Aminotransferase (ALT/SGPT) 27 U/L Alkaline Phosphatase 69 U/L Total Creatine Kinase 194 U/L Creatine Kinase MB 3.3 ng/ml Creatine Kinase MB Ratio 1.7 Pro-B-Type Natriuretic Peptide 3092 pg/ml Total Protein 7.0 gm/dl Albumin 3.0 gm/dl Lipase 205 U/L Bedside Troponin I 0.060 ng/ml Assessment & Plan This is a 77 yo M with PMHx of 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 Initially his BP was found to be 70s/40s. His BP improved with administration of small fluid boluses to total 1.25 L while in the ER. He does have combined CHF with EF of 20-25%. His troponin is mildly elevated at 0.062 however is chronically elevated at this level for years and denies cardiac symptoms other than described above. CKD stage III likely mildly increased due to additional diuretic (metolazone) taken last evening, and scheduled for every Thursday. Recommendations: Would continue ALL cardiac medications including amiodarone, bumex and spironolactone as prescribed due to his complex cardiac disease. The patient is noncompliant with these medications at baseline so it is difficult to determine the exact offending agent. HOLD carvedilol as you do not routinely take this medication, and took it today, which likely caused worsening pressure. Discuss this with cardiology at next appointment. HOLD metolazone at this time as this likely caused volume status to be adjusted and worsened his status with taking all medications this morning. HOLD nitroglycerine for now as this likely worsened BP after taking all routine cardiac medications. Nitroglycerine may be taken in the setting of chest pain, chest pressure, heaviness, radiation of pain into jaw back or arm. Please discuss this further with cardiology. Recommended low sodium diet/heart healthy diet, checking daily weights, and monitoring the amount of fluid drank per day - may consider a fluid restriction of 1500mL daily. Follow up with Dr. Birmingham/ Cora Harris PA-C on 03/24/18 to discuss possible medication adjustments and/or reductions Call 911 or go directly to the Emergency Department if you experience any of the following: Chest pain, chest tightness, shortness of breath, abdominal pain , lightheadedness, dizziness, gastrointestinal bleeding, or have any other concerns regarding your health. Thank you for involving us in the care of Mr. Davidson, please do not hesitate to call with questions or concerns. Reviewed: Pt Seen/Exam by Me History Pt is feeling at his usual now. Per pt and , he does not take his medications regularly. He rarely takes his carvedilol and this was one of the medications he decided to take today after he noted some SOB. He also took nitro and it was after these medications that he felt worse. He was noted to have a BP in the 70s systolically when EMS arrived. This has now improved s/p IVF. No chest pain with this episode. He has been eating without issue. Agree with HPI/ROS as noted by PA. General Appearance: WD/WN, no apparent distress Eye Exam: bilateral eye normal inspection, bilateral eye other Respiratory: normal breath sounds, no respiratory distress Cardiovascular: normal peripheral pulses, regular rate, rhythm Gastrointestinal: non tender, soft Extremities: non-tender, no pedal edema Neurologic/Psychiatric: alert, normal mood/affect, oriented x 3 Skin Characteristics: normal color, warm/dry Assessment/Plan Agree with plan as outlined above Discussed with pt and advised to hold further carvedilol until f/u with cardiology next week given he does not generally take this at baseline despite his prescription Pt is feeling at his baseline now BP is improved
[2018-03-18 15:49] VITALS: BP 90/58; PULSE 70; O2SAT 95
[2018-03-22] MEDS ORDERED: KFL/250 PO (14:58)
== END 2018-03-18 15:49 | disposition home or self-care (01) ==
LOC: EDBD 12:17 → C.EDA 12:19
DX: I95.2 Hypotension due to drugs (principal); E86.0 Dehydration; R79.89 Other specified abnormal findings of blood chemistry; E11.9 Type 2 diabetes mellitus without complications; I35.0 Nonrheumatic aortic (valve) stenosis; M19.90 Unspecified osteoarthritis, unspecified site; I48.91 Unspecified atrial fibrillation; I50.40 Unspecified combined systolic (congestive) and diastolic (congestive) heart failure; N18.3 Chronic kidney disease, stage 3 (moderate); K21.9 Gastro-esophageal reflux disease without esophagitis; E78.5 Hyperlipidemia, unspecified; E03.9 Hypothyroidism, unspecified; I25.5 Ischemic cardiomyopathy; Z83.3 Family history of diabetes mellitus; Z80.9 Family history of malignant neoplasm, unspecified; Z82.49 Family history of ischemic heart disease and other diseases of the circulatory system; Z84.1 Family history of disorders of kidney and ureter; Z79.899 Other long term (current) drug therapy; Z79.82 Long term (current) use of aspirin; Z79.4 Long term (current) use of insulin; Z79.01 Long term (current) use of anticoagulants; Z95.810 Presence of automatic (implantable) cardiac defibrillator; Z95.5 Presence of coronary angioplasty implant and graft

== ENCOUNTER 2018-05-24 10:49 | Inpatient (IN) | payer OTHER ==
[~2018-05-24] VITALS: Ht 172.7 cm; Wt 97.2 kg
[~2018-05-24 10:49] MED LIST changes: +APIX1TAB3 PO; +ASPI-461 PO; -CARV6.252 PO; -FLUO-245 TOP; -INSDGIPEN SC; +INSU100I23 SC; +IPRA1AER2 INH; -NTRGSL/4 UT; -OSEL75CA23 PO
[2018-05-24] MEDS ORDERED: SODIUM CHLORIDE 0.9% 1000ML 1,000 ML IV STA (11:10)
[2018-05-24 11:25] LABS: BASO % 0.3 %; BASO ABS # 0.02 K/uL (0-0.2); EOS % 2.3 %; EOS ABS # 0.14 K/uL (0-0.5); HEMATOCRIT 48.9 % (42-52); HEMOGLOBIN 16.9 g/dL (14.0-18.0); IG# 0.01 K/uL (0.00-0.02); LYMPH ABS # 1.14 K/uL (1.2-3.4); MEAN CELL VOLUME 96.4 fL (80-100); MEAN CORPUSCULAR HEMOGLOBIN 33.3 pg (25-34); MEAN CORPUSCULAR HGB CONC 34.6 g/dl (32-36); MEAN PLATELET VOLUME 9.9 fL (7.4-10.4); MONO % 10.3 %; MONO ABS # 0.62 K/uL (0.11-0.59); NEUT % 67.9 %; NEUT ABS # 4.08 K/uL (1.4-6.5); PLATELET COUNT 121 K/uL (130-400); RED CELL DISTRIBUTION WIDTH CV 14.8 % (11.5-14.5); RED CELL DISTRIBUTION WIDTH SD 51.7 fL (36.4-46.3); WHITE BLOOD COUNT 6.01 K/uL (4.8-10.8)
[2018-05-24] MEDS ORDERED: LACT10SO3 PO (11:26)
[2018-05-24 11:31] LABS: INR 1.1 (0.9-1.1); PTT PATIENT 27.6 SECONDS (21.0-31.0)
--- NOTE | 2018-05-24 11:56 | DIAGNOSTIC IMAGING REPORT ---
CHEST ONE VIEW PORTABLE CLINICAL HISTORY: EVALUATE ALTERED MENTAL STATUS/WEAKNESS dyspnea COMPARISON STUDY: 03/18/2018 FINDINGS: Moderate stable cardia megaly. Moderate prominence of pulmonary vasculature. Diaphragms smooth. Calcifications are sharp. There is a permanent bipolar cardiac pacemaker/fibrillator. IMPRESSION: Developing congestive heart failure The above report was generated using voice recognition software. It may contain grammatical, syntax or spelling errors. Electronically signed by: Harjeet Tellez M.D. 05/24/2018 11:55 AM Dictated Date/Time: 05/24/2018 11:52 AM
[2018-05-24 12:00] LABS: ALBUMIN 3.5 gm/dl (3.4-5.0); CALCIUM 9.2 mg/dl (8.5-10.1); CKMB 3.2 ng/ml (0.5-3.6); CREATININE 3.1 mg/dl (0.60-1.40); POTASSIUM 4.4 mmol/L (3.5-5.1); TOTAL PROTEIN 7.9 gm/dl (6.4-8.2)
[2018-05-24] MEDS ORDERED: SODIUM CHLORIDE 0.9% 250ML 250 ML IV STA (12:47)
--- NOTE | 2018-05-24 13:11 | EMERGENCY ROOM VISIT NOTE ---
History Report prepared by Stephanie: Edy Hammond Under the Supervision of: Dr. Guy Gracia D.O. First contact with patient: 11:00 Chief Complaint: HYPOTENSION Stated Complaint: HIGH BLOOD PRESSURE History of Present Illness This history is somewhat limited secondary to a slight language barrier. The patient is a 77 year old male who presents to the Emergency Room from the [facility] outpatient cardiology offices secondary to hypotension. The patient's states that he was at the office today for a pacemaker interrogation. The pacemaker was good, but the patient was hypotensive. They sent the patient to the ER immediately. The notes that he is complaining of a headache, difficulty breathing, and some lower abdominal pain recently. The adds that they follow with Dr. Birmingham of [facility] Cardiology. Source of History: patient Onset: At the offices this morning Position: head Quality: ache (headache) Associated Symptoms: + abdominal pain Review of Systems See HPI for pertinent positives & negatives. A total of 10 systems reviewed and were otherwise negative. 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 (16) Mechanical complication of pacemaker (17) Mitral regurgitation (18) Nephrolithiasis (19) Pacemaker lead fracture (20) Pulmonary hypertension (21) Two stents Surgical Problems: (1) S/P cardiac pacemaker procedure Family History Diabetes mellitus FH: cancer Heart disease Hypertension Kidney disease Kidney stones Social History Smoking Status: Never Smoker Alcohol Use: none Drug Use: none Marital Status: Housing Status: lives with family Occupation Status: retired Current/Historical Medications Scheduled Allopurinol (Zyloprim), 100 MG PO BID Amiodarone Hcl (Cordarone), 200 MG PO DAILY Apixaban (Eliquis), 5 MG PO BID Aspirin (Aspirin), 81 MG PO DAILY Bumetanide (Bumex), 2 MG PO UD Calcitriol (Calcitriol), 0.5 MCG PO 3XWK Insulin Aspart (Novolog Flexpen), 20-25 UNITS SC TIDM Insulin Glargine (Basaglar Kwikpen), 35 UNITS SC HS Isosorbide Mononitrate Ext Rel (Imdur Ext Rel), 60 MG PO QAM Lactulose (Chronulac), 30 ML PO DAILY Levothyroxine Sodium (Levothyroxine Sodium), 75 MCG PO DAILY Metolazone (Zaroxolyn), 2.5 MG PO WK Potassium Ext Rel (Klor-Con), 40 MEQ PO BID Simvastatin (Zocor), 40 MG PO HS Spironolactone (Aldactone), 25 MG PO QAM Scheduled PRN Diclofenac Sodium (Topical) (Voltaren 1% Top Gel), 1 APPLN TOP QID PRN for Pain Ipratropium-Albuterol (Combivent Respimat), 1 PUFFS INH Q6 PRN for PRN Zolpidem Tartrate (Ambien), 0.25-0.5 TAB PO HS PRN for Insomnia Allergies Coded Allergies: No Known Allergies (Verified , 05/24/18) Physical Exam Vital Signs Date Time Temp Pulse Resp B/P (MAP) Pulse Ox O2 Delivery O2 Flow Rate FiO2 05/24/18 12:53 70 18 78/49 95 Nasal Cannula 2.0 05/24/18 12:36 70 16 80/31 95 Nasal Cannula 2.0 05/24/18 12:17 70 16 94/65 92 Nasal Cannula 2.0 05/24/18 12:00 70 18 86/61 93 Room Air 05/24/18 11:49 70 16 106/70 93 Room Air 05/24/18 11:29 70 18 91/63 94 Nasal Cannula 2.0 05/24/18 11:19 91 18 70/50 93 Nasal Cannula 2.0 05/24/18 11:08 73 05/24/18 11:06 71 18 65/43 93 Nasal Cannula 2.0 05/24/18 10:55 36.4 67 18 48/34 94 Room Air Physical Exam CONSTITUTIONAL/VITAL SIGNS: Reviewed / noted above. GENERAL: Non-toxic in appearance. INTEGUMENTARY: Warm, dry, and [place]. HEAD: Normocephalic. EYES: without scleral icterus or trauma. ENT/OROPHARYNX: clear and moist. LYMPHADENOPATHY/NECK: Is supple without lymphadenopathy or meningismus. RESPIRATORY: Lungs clear and equal. CARDIOVASCULAR: Regular rate and rhythm. GI/ABDOMEN: Soft and nontender. No organomegaly or pulsatile mass. No rebound or guarding. Normal bowel sounds. EXTREMITIES: Warm and well perfused. BACK: No CVA tenderness. NEUROLOGICAL: Intact without focal deficits. PSYCHIATRIC: normal affect. MUSCULOSKELETAL: Normally developed with good muscle tone. Medical Decision & Procedures ER Provider Diagnostic Interpretation: Radiology results as stated below per my review and radiologist interpretation: CHEST ONE VIEW PORTABLE CLINICAL HISTORY: EVALUATE ALTERED MENTAL STATUS/WEAKNESS dyspnea COMPARISON STUDY: 03/18/2018 FINDINGS: Moderate stable cardia megaly. Moderate prominence of pulmonary vasculature. Diaphragms smooth. Calcifications are sharp. There is a permanent bipolar cardiac pacemaker/fibrillator. IMPRESSION: Developing congestive heart failure The above report was generated using voice recognition software. It may contain grammatical, syntax or spelling errors. Electronically signed by: Harjeet Tellez M.D. 05/24/2018 11:55 AM Dictated Date/Time: 05/24/2018 11:52 AM Laboratory Results 05/24/18 11:13 Red Blood Count 5.07, Mean Corpuscular Volume 96.4, Mean Corpuscular Hemoglobin 33.3, Mean Corpuscular Hemoglobin Concent 34.6, Mean Platelet Volume 9.9, Neutrophils (%) (Auto) 67.9, Lymphocytes (%) (Auto) 19.0, Monocytes (%) (Auto) 10.3, Eosinophils (%) (Auto) 2.3, Basophils (%) (Auto) 0.3, Neutrophils # (Auto ) 4.08, Lymphocytes # (Auto) 1.14, Monocytes # (Auto) 0.62, Eosinophils # (Auto ) 0.14, Basophils # (Auto) 0.02 05/24/18 11:13 Test 05/24/18 11:13 White Blood Count 6.01 K/uL (4.8-10.8) Red Blood Count 5.07 M/uL (4.7-6.1) Hemoglobin 16.9 g/dL (14.0-18.0) Hematocrit 48.9 % (42-52) Mean Corpuscular Volume 96.4 fL (80-100) Mean Corpuscular Hemoglobin 33.3 pg (25-34) Mean Corpuscular Hemoglobin Concent 34.6 g/dl (32-36) Platelet Count 121 K/uL (130-400) Mean Platelet Volume 9.9 fL (7.4-10.4) Neutrophils (%) (Auto) 67.9 % Lymphocytes (%) (Auto) 19.0 % Monocytes (%) (Auto) 10.3 % Eosinophils (%) (Auto) 2.3 % Basophils (%) (Auto) 0.3 % Neutrophils # (Auto) 4.08 K/uL (1.4-6.5) Lymphocytes # (Auto) 1.14 K/uL (1.2-3.4) Monocytes # (Auto) 0.62 K/uL (0.11-0.59) Eosinophils # (Auto) 0.14 K/uL (0-0.5) Basophils # (Auto) 0.02 K/uL (0-0.2) RDW Standard Deviation 51.7 fL (36.4-46.3) RDW Coefficient of Variation 14.8 % (11.5-14.5) Immature Granulocyte % (Auto) 0.2 % Immature Granulocyte # (Auto) 0.01 K/uL (0.00-0.02) Prothrombin Time 11.4 SECONDS (9.0-12.0) Prothromb Time International Ratio 1.1 (0.9-1.1) Activated Partial Thromboplast Time 27.6 SECONDS (21.0-31.0) Partial Thromboplastin Ratio 1.1 Anion Gap 5.0 mmol/L (3-11) Est Creatinine Clear Calc Drug Dose 23.4 ml/min Estimated GFR () 21.6 Estimated GFR (Non- 18.7 BUN/Creatinine Ratio 20.7 (10-20) Calcium Level 9.2 mg/dl (8.5-10.1) Magnesium Level 2.6 mg/dl (1.8-2.4) Total Bilirubin 0.9 mg/dl (0.2-1) Direct Bilirubin 0.3 mg/dl (0-0.2) Aspartate Amino Transf (AST/SGOT) 19 U/L (15-37) Alanine Aminotransferase (ALT/SGPT) 26 U/L (12-78) Alkaline Phosphatase 76 U/L (45-117) Total Creatine Kinase 212 U/L (39-308) Creatine Kinase MB 3.2 ng/ml (0.5-3.6) Creatine Kinase MB Ratio 1.5 (0-3.0) Troponin I 0.050 ng/ml (0-0.045) Total Protein 7.9 gm/dl (6.4-8.2) Albumin 3.5 gm/dl (3.4-5.0) Lipase 249 U/L (73-393) Thyroid Stimulating Hormone (TSH) 3.410 uIu/ml (0.300-4.500) Laboratory results as stated above per my review. Medications Administered Medications (Trade) Dose Ordered Sig/Rajesh Route Start Time Stop Time Status Last Admin Dose Admin Sodium Chloride 1,000 ml @ 999 mls/hr Q1H1M STAT IV 05/24/18 11:10 05/24/18 12:10 DC 05/24/18 11:10 999 MLS/HR Sodium Chloride 250 ml @ 999 mls/hr Q16M STAT IV 05/24/18 12:47 05/24/18 13:02 DC 05/24/18 12:47 999 MLS/HR ECG Per My Interpretation Indication: other (Dizzy, hypotensive) Rate (beats per minute): 72 Rhythm: other (Ventricularly Paced) Findings: paced rhythm, no ectopy, other (No DUARTE, no PVCs) ED Course 1104: Previous medical records were reviewed. The patient was evaluated in room C6. A complete history and physical examination was performed. 1110: Ordered Sodium Chloride 1000 ml @ 999 mls/hr IV. 1239: I discussed the case with Dr. López Rogers [facility] Hospitalist. He suggest administering another 250 mL of NSS. He will evaluate the patient for further treatment. 1247: Ordered Sodium Chloride 250 mL @ 999 mL/hr IV. Medical Decision Differential includes acute coronary syndrome, myocardial infarction, CVA, TIA, anemia, infection, pneumonia, UTI, pyelonephritis, poor nutrition, dehydration, electrolyte disturbance,hypoglycemia. This is a 77-year-old male who presents to the ED with a chief complaint of low blood pressure. The patient was seen prior to arrival and was having a pacemaker checked. His blood pressure was low there and he was feeling symptomatic. He was sent here for evaluation. His initial triage blood pressure was 48/34. In the ED room, his blood pressure was 65/43. I did speak with Dr. Birmingham about the patient. He reports that the patient is on significant amount of diuretics and his blood pressure could be low related to hypovolemia. The patient was hydrated with a liter of IV fluids here. His blood pressure did improve somewhat with that. His exam was unremarkable. His troponin was slightly elevated 0.05. CBC is normal, BUN is 64 and creatinine is 3.2. Baseline creatinine is around 2. Magnesium was slightly low at 2.6. The patient was given an additional 250 cc bolus of IV fluids. I spoke with Dr. Dawn, who will see the patient from the hospitalist service. Medication Reconcilliation Current Medication List: was personally reviewed by me Blood Pressure Screening Patient's blood pressure: Low blood pressure Referred to hospitalist. Consults Time Called: 1231 Consulting Physician: Dr. López [facility] Hospitalist Returned Call: [phone] I discussed the case with Dr. López [facility] Hospitalist. He suggest administering another 250 mL of NSS. He will evaluate the patient for further treatment. Impression Primary Impression: Hypotension Additional Impression: Elevated troponin Critical Care I have personally spent greater than 45 minutes of critical care time in the direct management of this patient. This includes bedside care, interpretation of diagnostic studies, and testing, discussion with consultants, patient, and family members, and other required patient management activities. This 45 minutes is in excess of all separately billable procedures. Scribe Attestation The scribe's documentation has been prepared under my direction and personally reviewed by me in its entirety. I confirm that the note above accurately reflects all work, treatment, procedures, and medical decision making performed by me. Departure Information Dispostion Being Evaluated By Hospitalist Referrals ,Noel Palomo M.D. (PCP) Patient Instructions My [facility] Problem Qualifiers
[2018-05-24] MEDS ORDERED: DICLOFENAC SOD 1% GEL 100 GM TUBE EXT PRN (13:30)
[2018-05-24] MEDS ORDERED: IPRATROPIUM BROMIDE/ALBUTEROL respimat INH INH PRN (13:30)
[2018-05-24] MEDS ORDERED: POLYETHYLENE (MIRALAX) 17 GM PACK PO PRN (13:30)
[2018-05-24] MEDS ORDERED: MAGNESIUM HYDROXIDE SUSP 30 ML UDC PO PRN (13:30)
[2018-05-24] MEDS ORDERED: ONDANSETRON INJ 2 MG/ML 2 ML VIAL IV PRN (13:30)
[2018-05-24] MEDS ORDERED: ALUMINUM/MAGNESIUM/SIMETH (MAALOX MAX) 30 ML UDC PO PRN (13:30)
[2018-05-24] MEDS ORDERED: ZOLPIDEM TARTRATE 5 MG TAB PO PRN (13:30)
[2018-05-24] MEDS ORDERED: ACETAMINOPHEN 325 MG TAB PO PRN (13:30)
[2018-05-24] MEDS ORDERED: DICLOFENAC SOD 1% GEL 100 GM TUBE EXT ONE (13:43)
[2018-05-24] MEDS ORDERED: POLYETHYLENE (MIRALAX) 17 GM PACK PO ONE (13:44)
[2018-05-24] MEDS ORDERED: GLUCOSE 40% GEL 15 GM TUBE PO PRN (14:00)
[2018-05-24] MEDS ORDERED: GLUCAGON FOR INJ 1 MG VIAL IM PRN (14:00)
[2018-05-24] MEDS ORDERED: CARBOHYDRATES FOR HYPOGLYCEMIA PO PRN (14:00)
[2018-05-24] MEDS ORDERED: GLUCOSE 10 TABS/TUBE PO PRN (14:00)
[2018-05-24] MEDS ORDERED: DEXTROSE 50% 50 ML SYR IV PRN (14:00)
--- NOTE | 2018-05-24 14:00 | History and Physical ---
History & Physical Date of Service May 24, 2018. History & Physical admit #[id number]
[2018-05-24] MEDS ORDERED: SODIUM CHLORIDE 0.9% 250ML 250 ML IV ONE (14:15)
[2018-05-24 14:42] VITALS: BP 95/60; PULSE 72; TEMP 36.4; O2SAT 98; Ht 172.7 cm; Wt 97.2 kg
--- NOTE | 2018-05-24 15:11 | HISTORY & PHYSICAL EXAMINATION ---
DATE OF ADMISSION: 05/24/2018 CHIEF COMPLAINT: Hypotension. HISTORY OF PRESENT ILLNESS: The patient is a very pleasant 77-year-old male who I know from prior admissions. He speaks only Thai, his daughter acts as a regrinder, which is his preferred means of communication. He apparently overall has been in his usual state of health, save a few subacute to chronic complaints which I will outline below but his reason for admission was basically he was going to [facility] cardiology device clinic for a pacemaker check and he was found to be quite hypotensive. In the office, his blood pressure was 83/49, whenever first coming to the ER, he was recorded as low as about 40/30 but actually has no lightheadedness, no symptoms really whatsoever, just notably low blood pressure. He did note that through the night last night, he was up about 4 separate times with Charley horse type leg cramps which seems to be more than usual for him but otherwise no other symptoms. No infectious symptoms. No cardiac symptoms, just the low blood pressure. Here, he was given a fluid bolus and while his pressures are still low they are in a more acceptable range and we were asked to see him for further evaluation and treatment. Incidentally, he appears to have been quite constipated over the last several weeks and has even been given lactulose scheduled with very little alleviation of his constipation. Because of language barrier, it is a little difficult to tell exactly how his p.o. intake has been, but it seems heavily implied that he is probably not doing quite as well as he normally does with oral intake and then as a last complaint he has had left-sided head pain going on for it sounds like at least weeks or longer. It was attributed to a bad tooth. The tooth was removed. The headache improved a little but still persisted. It was a question of an ear or sinus infection. These apparently were remedied but the headache persisted and is really just kind of a left-sided headache that will not go away. REVIEW OF SYSTEMS: Otherwise negative, except for as above. PAST MEDICAL HISTORY: Includes coronary artery disease with an ischemic cardiomyopathy, allowing for chronic systolic CHF with an EF in the neighborhood of 20%. He has a biventricular AICD and pacer, CKD stage IV, type 2 diabetes with his most recent A1c being a couple of months ago around 7, dyslipidemia, hypertension, hypothyroidism, atrial fibrillation, TMJ dysfunction, vitamin D deficiency. MEDICATIONS: Allopurinol, amiodarone, aspirin, Basaglar, Bumex 2 mg in the morning and an additional 1-2 mg in the afternoon, calcitriol, Coreg, Combivent, Eliquis, gabapentin, Imdur, lactulose currently 15 mL b.i.d., Synthroid 75 mcg daily, meclizine, metolazone 2.5 mg weekly, nitro, NovoLog, potassium, simvastatin, spironolactone, and Ambien. PAST SURGICAL HISTORY: Includes ICD placement, colonoscopy. FAMILY HISTORY: Diabetes, breast cancer and coronary disease. SOCIAL HISTORY: He is . He has a very supportive family. He is not a smoker. No notable alcohol. ALLERGIES: No known drug allergies. PHYSICAL EXAMINATION: VITAL SIGNS: His initial vitals showed a temp of 36.4, pulse 67, respiratory rate 18, blood pressure 48/34, 94% on room air. Later, his blood pressure is more in the range of 96/55. GENERAL: He is awake, alert, oriented x3, pleasant, in no acute distress. HEENT: Normocephalic, atraumatic. Mucous membranes are moist. CARDIOVASCULAR: Regular. No rubs, murmurs, or gallops. LUNGS: Clear to auscultation bilaterally. No rales, rhonchi, or wheezes with good effort. ABDOMEN: Soft, moderately distended, nontender. No guarding, rebound, masses, rigidity or organomegaly. EXTREMITIES: Show no cyanosis or clubbing. He probably has about trace bilateral lower extremity edema. No calf tenderness. SKIN: Shows no rashes, no pallor or icterus. NEUROLOGIC: Shows cranial nerves II-XII are grossly intact. Gross motor and sensory intact. Musculoskeletal/osteopathic exam is most floridly positive for extremely tight exquisite left-sided suboccipital tenderness, high tone, decreased range of motion and it does improve with inhibitory pressure. Patient tolerated this well. MENTAL STATUS: Shows good recent and remote recall. Normal mood and affect. Good judgment and insight. LABS AND DIAGNOSTICS: CBC shows a white count of 6.01, hemoglobin 16.9, platelets 121. Complete metabolic panel with sodium 134, potassium 2.4, chloride 97, CO2 32, BUN 64, creatinine 3.1 with a baseline more in the low 2s, calcium 9.2, glucose 154, mag of 2.6, direct bilirubin 0.3, AST 19, ALT 26, alkaline phosphatase 76, CK total of 212 with an MB of 3.2, a troponin of 0.05, total protein of 7.9, albumin 3.5, lipase 249. TSH 3.41. PT of 11.4, PTT 27.6. His chest x-ray appears to radiology consistent with a developing CHF-type picture. There does appear consistency with this to my review as well; however, clinically it does not fit and his EKG is paced. ASSESSMENT AND PLAN: 1. Hypotension. This appears to be due to hypovolemia from his diuretics and possibly from poor p.o. intake recently. He fortunately shows no signs of hemorrhagic shock or other reasons to be hypokalemic. He does not have cardiac symptoms or high enough troponin to be consistent with cardiogenic shock, although obviously will be trending his troponin. He does not show any signs or symptoms of sepsis to be consistent with septic shock and has no reason to have neurogenic shock. Therefore, both by what it looks like and by what it does not look like, it is almost certainly related to hypovolemia. Because of his brittle nature of chronic systolic CHF with a very low EF, we will be doing fluid in bolus and reassess fashion. At this point in time, he has had about a liter and a half and is starting to show perfusing blood pressures. We will follow his blood pressure if his systolic is below 90 or his mean arterial pressure is below 65, we will bolus with 250-500 of saline and then reassess until we are maintaining good stability with his blood pressure. Obviously we will hold off on his diuretics until a later date as well. Will check orthostatics b.i.d. 2. Acute renal failure superimposed on chronic kidney disease approximately stage IV. This obviously is due to hypovolemia. We will follow the basic metabolic panel tomorrow after rehydration and obviously may need to hold off on diuretics for a short term. 3. Constipation. This appears to be fairly severe, although fortunately he does not examine in a bowel obstruction type way. He has been failing lactulose so we will give him MiraLax 2 doses now and then t.i.d. scheduled along with b.i.d. Colace, holding for diarrhea to try to alleviate the constipation. It is quite possible the constipation led to poor p.o. intake led to him still taking his diuretics but getting more dehydrated than he would on a normal day. 4. Headache. This appears to be a chronic muscle tension headache, possibly it was started by the bad tooth creating a lot of reflux, muscle spasm in the same area but at this point in time it really seems to be a suboccipital headache. Utilize Voltaren gel and osteopathic manipulative treatment. 5. Somatic dysfunction cervical region. Osteopathic manipulative treatment as above. We will refer to Talat Geronimo to continue osteopathic manipulative treatment given that the headache appears to be an ongoing very bothersome issue for this gentleman and more than likely ongoing osteopathic manipulative treatment and probably ongoing Voltaren gel can help reduce or maybe even alleviate the problem entirely. 6. Deep venous thrombosis prophylaxis. Anticoagulation. 7. Atrial fibrillation. His rate is controlled. He is anticoagulated. 8. Chronic systolic congestive heart failure with an ischemic cardiomyopathy as above. We will need to follow closely for any kind of signs of decompensation. His chest x-ray looks wet but currently he looks quite dry. 9. Elevated troponin is almost certainly demand ischemia, really more from poor supply from his hypotension than anything. We will recheck in several hours, but I doubt this is going to go anywhere. If it does go up more, obviously we will need to trend and check an echocardiogram to ensure that his hypotension did not lead to a watershed type myocardial infarction but this seems highly unlikely. 10. Disposition: He will be admitted [facility] the [facility] telemetry floor.
[2018-05-24] MEDS: DICLOFENAC SOD 1% GEL 100 GM TUBE EXT SCH ×2 (17:00→20:50)
[2018-05-24] MEDS: INSULIN ASPART 100 UNITS/ML 3 ML PEN SC SCH (17:23)
[2018-05-24 20:29] VITALS: BP 106/66; PULSE 71; TEMP 36.6; O2SAT 93
[2018-05-24] MEDS: POLYETHYLENE (MIRALAX) 17 GM PACK PO SCH (20:45)
[2018-05-24] MEDS: ALLOPURINOL 100 MG TAB PO SCH (20:47)
[2018-05-24] MEDS: DOCUSATE SODIUM 100 MG CAP PO SCH (20:47)
[2018-05-24] MEDS: APIXABAN 5 MG TAB PO SCH (20:48)
[2018-05-24] MEDS ORDERED: INSULIN GLARGINE SOLOSTAR 100 UNITS/ML 3 ML PEN SC SCH (21:00)
[2018-05-24] MEDS ORDERED: SIMVASTATIN 40 MG TAB PO SCH (21:00)
[2018-05-24] MEDS ORDERED: POTASSIUM CHLORIDE 20 MEQ TABCR PO SCH (21:00)
[2018-05-24 23:21] VITALS: BP 101/66; PULSE 73; TEMP 36.6; O2SAT 91
[2018-05-25] VITALS (7 sets, daily range): BP systolic 93–116; BP diastolic 57–70; PULSE 69–78; TEMP 36.4–36.8; O2SAT 91–96
[2018-05-25 06:13] LABS: CALCIUM 8.1 mg/dl (8.5-10.1); CREATININE 2.44 mg/dl (0.60-1.40); POTASSIUM 4.4 mmol/L (3.5-5.1)
[2018-05-25] MEDS ORDERED: LEVOTHYROXINE 75 MCG TAB PO SCH (06:30)
[2018-05-25] MEDS: DOCUSATE SODIUM 100 MG CAP PO SCH (08:06)
[2018-05-25] MEDS: APIXABAN 5 MG TAB PO SCH (08:06)
[2018-05-25] MEDS: ALLOPURINOL 100 MG TAB PO SCH (08:06)
[2018-05-25] MEDS: DICLOFENAC SOD 1% GEL 100 GM TUBE EXT SCH ×2 (08:07→12:47)
[2018-05-25] MEDS: INSULIN ASPART 100 UNITS/ML 3 ML PEN SC SCH ×2 (08:15→12:46)
[2018-05-25] MEDS ORDERED: SODIUM CHLORIDE 0.9% 250ML 250 ML IV SCH (08:15)
[2018-05-25] MEDS: POLYETHYLENE (MIRALAX) 17 GM PACK PO SCH ×2 (08:17→14:00)
[2018-05-25] MEDS ORDERED: ASPIRIN 81 MG ECTAB PO SCH (09:00)
[2018-05-25] MEDS ORDERED: LACTULOSE SYRUP 20 GM/30 ML UDC PO SCH (09:00)
[2018-05-25] MEDS ORDERED: AMIODARONE 200 MG TAB PO SCH (09:00)
[2018-05-25] MEDS ORDERED: ISOSORBIDE MONONITRATE 60 MG TABCR PO SCH (09:00)
--- NOTE | 2018-05-25 11:13 | Cardiology Consultation ---
Cardiology Consultation Date of Consultation: May 25, 2018. Requesting Physician: Ryan. Clifford Grijalva Reason for Consultation: Hypotension Pt evaluation today including: conversation w/ patient, conversation w/ family , physical exam, chart review, lab review, review of studies, review of inpatient medication list History of Present Illness Mr. Maximus Davidson is a 77 year old male who presents for consultation following in-patient admission for chief complaint of Hypotension, dizziness, and blurry vision. Patient was seen at [facility] Cardio device clinic for pacer check. At office visit, patient complained of severe dizziness, blurry vision, and was found to be hypotensive. He was transported via EMS to [facility] ED. His BP in the office was 83/49 and in the ED it was 40/30. Patient was not symptomatic in the ED. He was given fluid bolus in the ED. Prior to transport to ED, assessment and plan in office was low blood pressure with plan to reduce Imdur from 60mg to 30mg. Etiology was suspected to be from patient's overuse of diruretics and lack of adequate PO fluid intake. He denied chest pain, shortness of breath, edema. He is complaining of constipation and abdominal discomfort to the right upper quadrant. Today, while being seen he denies chest pain, shortness of breath, dizziness, blurred vision. His initial troponin yesterday at 1113 was slightly elevated at 0.050 and trended down on second troponin to 0.038. His CXR indicated developing CHF and mod stable cardiomegaly. He received a 250mL bolus today and his BP has been stable without symptomatic complaints. In addition, he has been experiencing constipation with inpatient plan to give Mag citrate and Colace. Past Medical/Surgical History (1) Elevated troponin (2) Renal failure (3) Hypotension (4) Atrial fibrillation (5) HLD (hyperlipidemia) (6) Aortic stenosis (7) GERD (gastroesophageal reflux disease) (8) Mitral regurgitation (9) Chronic combined systolic and diastolic CHF (congestive heart failure) (10) CKD (chronic kidney disease), stage III (11) Ischemic cardiomyopathy (12) Implantation of cardiac pacemaker (13) Pulmonary hypertension (14) Shortness of breath (15) Diabetes mellitus (16) Two stents (17) S/P cardiac pacemaker procedure Medical Problems: (1) Aortic stenosis (2) Arthritis (3) Atrial fibrillation (4) Chronic combined systolic and diastolic CHF (congestive heart failure) (5) CKD (chronic kidney disease), stage III (6) Diabetes mellitus (7) GERD (gastroesophageal reflux disease) (8) Gram positive septicemia (9) Heart disease (10) Hernia of abdominal wall (11) HLD (hyperlipidemia) (12) Hypothyroidism (13) Implantation of cardiac pacemaker (14) Ischemic cardiomyopathy (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 Social History Smoking Status: Never Smoker History of Alcohol Use: Yes Review of Systems Constitutional: No fever, No chills Respiratory: + dyspnea on exertion, No shortness of breath Cardiac: + see HPI, No chest pain Abdomen: + pain, + constipation, No nausea, No vomiting All Other Systems: Reviewed and Negative Allergies Coded Allergies: No Known Allergies (Verified , 05/24/18) Medications Current Inpatient Medications Medications (Trade) Dose Ordered Sig/Rajesh Route Start Time Stop Time Status Last Admin Dose Admin Acetaminophen (Tylenol Tab) 650 mg Q4H PRN PO 05/24/18 13:30 06/23/18 13:29 05/24/18 22:43 650 MG Al Hydrox/Mg Hydrox/Simethicone (Maalox Max Susp) 15 ml Q4H PRN PO 05/24/18 13:30 06/23/18 13:29 Magnesium Hydroxide (Milk Of Magnesia Susp) 30 ml Q12H PRN PO 05/24/18 13:30 06/23/18 13:29 05/24/18 20:45 30 ML Ondansetron HCl (Zofran Inj) 4 mg Q6H PRN IV 05/24/18 13:30 06/23/18 13:29 Polyethylene (Miralax Powder Packet) 17 gm DAILY PRN PO 05/24/18 13:30 06/23/18 13:29 Allopurinol (Zyloprim Tab) 100 mg BID PO 05/24/18 21:00 06/23/18 20:59 05/25/18 08:06 100 MG Amiodarone HCl (Cordarone Tab) 200 mg DAILY PO 05/25/18 09:00 06/24/18 08:59 05/25/18 08:08 200 MG Apixaban (Eliquis) 5 mg BID PO 05/24/18 21:00 06/23/18 20:59 05/25/18 08:06 5 MG Aspirin (Ecotrin Tab) 81 mg DAILY PO 05/25/18 09:00 06/24/18 08:59 05/25/18 08:06 81 MG Miscellaneous Information (Order Awaiting Action) 1 ea QS N/A 05/24/18 18:00 06/23/18 17:59 Diclofenac Sodium (Voltaren 1% Top Gel) 1 appln QID PRN EXT 05/24/18 13:30 06/23/18 13:29 Insulin Aspart (novoLOG ASPART) AC SC 05/24/18 16:00 06/23/18 15:59 05/25/18 08:15 6 UNITS Insulin Glargine (Lantus Solostar Pen) 35 units HS SC 05/24/18 21:00 06/23/18 20:59 05/24/18 20:56 35 UNITS Albuterol/ Ipratropium (Combivent Respimat Inh) 1 puffs Q6 PRN INH 05/24/18 13:30 06/23/18 13:29 Isosorbide Mononitrate (Imdur Ext Rel Tab) 60 mg QAM PO 05/25/18 09:00 06/24/18 08:59 Levothyroxine Sodium (Synthroid Tab) 75 mcg DAILYBB PO 05/25/18 06:30 06/24/18 06:59 05/25/18 06:10 75 MCG Simvastatin (Zocor Tab) 40 mg HS PO 05/24/18 21:00 06/23/18 20:59 05/24/18 20:47 40 MG Zolpidem Tartrate (Ambien Tab) 5 mg HS PRN PO 05/24/18 13:30 06/23/18 13:29 Diclofenac Sodium (Voltaren 1% Top Gel) 1 appln QID EXT 05/24/18 17:00 06/23/18 16:59 05/25/18 08:07 1 APPLN Glucose (Glucose 40% Gel) 15-30 GRAMS 15 GRAMS... UD PRN PO 05/24/18 14:00 06/23/18 13:59 Glucose (Glucose Chew Tab) 4-8 Tablets 4 Tabl... UD PRN PO 05/24/18 14:00 06/23/18 13:59 Dextrose (Dextrose 50% 50ML Syringe) 25-50ML 25ML FOR ... UD PRN IV 05/24/18 14:00 06/23/18 13:59 Glucagon (Glucagon Inj) 1 mg UD PRN IM 05/24/18 14:00 06/23/18 13:59 Carbohydrates (Carbohydrates For Hypoglycemia) 15-30 GRAMS 15 grams if BSG 54-69... UD PRN PO 05/24/18 14:00 06/23/18 13:59 Polyethylene (Miralax Powder Packet) 17 gm TID PO 05/24/18 21:00 06/23/18 20:59 05/25/18 08:17 17 GM Docusate Sodium (coLACE CAP) 100 mg BID PO 05/24/18 21:00 06/23/18 20:59 05/25/18 08:06 100 MG Physical Exam Vital Signs Past 12 Hours Date Time Temp Pulse Resp B/P (MAP) Pulse Ox O2 Delivery O2 Flow Rate FiO2 05/25/18 10:49 36.8 70 16 116/70 (85) 96 Room Air 05/25/18 09:20 69 93/57 (69) 05/25/18 08:00 92 Room Air 05/25/18 07:29 36.5 69 18 98/64 (75) 92 Room Air 05/25/18 04:00 36.4 70 20 104/68 (80) 91 Room Air 05/24/18 23:59 Room Air 05/24/18 23:21 36.6 73 18 101/66 (78) 91 Room Air Constitutional: General Apperance: heathly-appearing, well-nourished, well-developed Level of Distress: NAD Ambulation: ambulating normally Head: normocephalic, atraumatic ENMT: normal ENT inspection, hearing grossly normal Neck: supple, trachea midline, no masses, FROM Lungs: Respiratory effort: no dyspnea, good air movement Auscultation: breath sounds normal, no wheezing, no rales/crackles, no rhonchi Cardiovascular: Heart Auscultation: RRR, normal S1, normal S2 Extremities: no edema Data Laboratory Results: Last 24 Hours Test 05/24/18 11:13 05/24/18 16:22 05/24/18 19:05 05/24/18 20:37 White Blood Count 6.01 K/uL Red Blood Count 5.07 M/uL Hemoglobin 16.9 g/dL Hematocrit 48.9 % Mean Corpuscular Volume 96.4 fL Mean Corpuscular Hemoglobin 33.3 pg Mean Corpuscular Hemoglobin Concent 34.6 g/dl Platelet Count 121 K/uL Mean Platelet Volume 9.9 fL Neutrophils (%) (Auto) 67.9 % Lymphocytes (%) (Auto) 19.0 % Monocytes (%) (Auto) 10.3 % Eosinophils (%) (Auto) 2.3 % Basophils (%) (Auto) 0.3 % Neutrophils # (Auto) 4.08 K/uL Lymphocytes # (Auto) 1.14 K/uL Monocytes # (Auto) 0.62 K/uL Eosinophils # (Auto) 0.14 K/uL Basophils # (Auto) 0.02 K/uL RDW Standard Deviation 51.7 fL RDW Coefficient of Variation 14.8 % Immature Granulocyte % (Auto) 0.2 % Immature Granulocyte # (Auto) 0.01 K/uL Prothrombin Time 11.4 SECONDS Prothromb Time International Ratio 1.1 Activated Partial Thromboplast Time 27.6 SECONDS Partial Thromboplastin Ratio 1.1 Sodium Level 134 mmol/L Potassium Level 4.4 mmol/L Chloride Level 97 mmol/L Carbon Dioxide Level 32 mmol/L Anion Gap 5.0 mmol/L Blood Urea Nitrogen 64 mg/dl Creatinine 3.10 mg/dl Est Creatinine Clear Calc Drug Dose 23.4 ml/min Estimated GFR () 21.6 Estimated GFR (Non- 18.7 BUN/Creatinine Ratio 20.7 Random Glucose 154 mg/dl Calcium Level 9.2 mg/dl Magnesium Level 2.6 mg/dl Total Bilirubin 0.9 mg/dl Direct Bilirubin 0.3 mg/dl Aspartate Amino Transf (AST/SGOT) 19 U/L Alanine Aminotransferase (ALT/SGPT) 26 U/L Alkaline Phosphatase 76 U/L Total Creatine Kinase 212 U/L Creatine Kinase MB 3.2 ng/ml Creatine Kinase MB Ratio 1.5 Troponin I 0.050 ng/ml 0.038 ng/ml Total Protein 7.9 gm/dl Albumin 3.5 gm/dl Lipase 249 U/L Thyroid Stimulating Hormone (TSH) 3.410 uIu/ml Bedside Glucose 182 mg/dl 215 mg/dl Test 05/25/18 05:22 05/25/18 07:21 Sodium Level 136 mmol/L Potassium Level 4.4 mmol/L Chloride Level 103 mmol/L Carbon Dioxide Level 27 mmol/L Anion Gap 6.0 mmol/L Blood Urea Nitrogen 59 mg/dl Creatinine 2.44 mg/dl Est Creatinine Clear Calc Drug Dose 29.7 ml/min Estimated GFR () 28.9 Estimated GFR (Non- 24.9 BUN/Creatinine Ratio 24.0 Random Glucose 104 mg/dl Calcium Level 8.1 mg/dl Bedside Glucose 137 mg/dl Imaging: EKG: Telemetry reviewed: Assessment & Plan (1) Elevated troponin Status: Acute Assessment & Plan: trending down, likely demand ischemia from hypotension/ hypovolemia (2) Hypotension Status: Acute Assessment & Plan: etiology suspected secondary to hypovolemia and patient's overuse of diurectics, BP stable here with IV Fluids (3) Atrial fibrillation Status: Chronic Assessment & Plan: Rate is controlled; Continue Eliquis for thromboembolic prophylaxis. (4) Chronic combined systolic and diastolic CHF (congestive heart failure) Status: Chronic Assessment & Plan: Stable, plan in office was to decrease Imdur from 60mg to 30mg as this could also contribute to low BPs. Attending note: The patient was seen and examined in the room by myself with the resident present. I also discussed the patient with his daughter by telephone from the room. His daughter will be coming in this afternoon and I will stop back up and discuss things in person with her. I also reviewed the case with Dr. Ellis. He seems to be doing better, his blood pressure is improved but he is not on his cardiac medications. As an outpatient he was maintained on Bumex which he adjusts, carvedilol 6.25 milligrams twice daily, isosorbide mononitrate 60 mg daily which is currently on hold since his hypotensive visit in the office, and no other blood pressure lowering medications. He is also on amiodarone. I hate to stop all of his heart failure medications, at the moment he is not on either his nitrate or carvedilol. I think we should restart his carvedilol at 3.125 mg twice a day, whether he stays here or goes home. Thank you for allowing me to participate in his care.
[2018-05-25] MEDS ORDERED: CLC100 PO (15:28)
[2018-05-25] MEDS ORDERED: MRLP17X PO (15:28)
--- NOTE | 2018-05-25 15:33 | Discharge Summary ---
Discharge Summary Date of Service May 25, 2018. Discharge Summary Admission Date: May 24, 2018 at 13:24 Discharge Date: May 25, 2018 Discharge Disposition: Home Principal Diagnosis: Hypotension Problems/Secondary Diagnoses: (1) Heart disease Status: Chronic (2) Nephrolithiasis Status: Chronic (3) Renal failure Status: Chronic 1. Hypotension. This appears to be due to hypovolemia from his diuretics and possibly from poor p.o. intake recently. He fortunately shows no signs of hemorrhagic shock or other reasons to be hypokalemic. He does not have cardiac symptoms or high enough troponin to be consistent with cardiogenic shock, although obviously will be trending his troponin. He does not show any signs or symptoms of sepsis to be consistent with septic shock and has no reason to have neurogenic shock. Therefore, both by what it looks like and by what it does not look like, it is almost certainly related to hypovolemia. Because of his brittle nature of chronic systolic CHF with a very low EF, we will be doing fluid in bolus and reassess fashion. At this point in time, he has had about a liter and a half and is starting to show perfusing blood pressures. We will follow his blood pressure if his systolic is below 90 or his mean arterial pressure is below 65, we will bolus with 250-500 of saline and then reassess until we are maintaining good stability with his blood pressure. Obviously we will hold off on his diuretics until a later date as well. Will check orthostatics b.i.d. 2. Acute renal failure superimposed on chronic kidney disease approximately stage IV. This obviously is due to hypovolemia. We will follow the basic metabolic panel tomorrow after rehydration and obviously may need to hold off on diuretics for a short term. 3. Constipation. This appears to be fairly severe, although fortunately he does not examine in a bowel obstruction type way. He has been failing lactulose so we will give him MiraLax 2 doses now and then t.i.d. scheduled along with b.i.d. Colace, holding for diarrhea to try to alleviate the constipation. It is quite possible the constipation led to poor p.o. intake led to him still taking his diuretics but getting more dehydrated than he would on a normal day. 4. Headache. This appears to be a chronic muscle tension headache, possibly it was started by the bad tooth creating a lot of reflux, muscle spasm in the same area but at this point in time it really seems to be a suboccipital headache. Utilize Voltaren gel and osteopathic manipulative treatment. 5. Somatic dysfunction cervical region. Osteopathic manipulative treatment as above. We will refer to Talat Geronimo to continue osteopathic manipulative treatment given that the headache appears to be an ongoing very bothersome issue for this gentleman and more than likely ongoing osteopathic manipulative treatment and probably ongoing Voltaren gel can help reduce or maybe even alleviate the problem entirely. 6. Deep venous thrombosis prophylaxis. Anticoagulation. 7. Atrial fibrillation. His rate is controlled. He is anticoagulated. 8. Chronic systolic congestive heart failure with an ischemic cardiomyopathy as above. We will need to follow closely for any kind of signs of decompensation. His chest x-ray looks wet but currently he looks quite dry. 9. Elevated troponin is almost certainly demand ischemia, really more from poor supply from his hypotension than anything. We will recheck in several hours, but I doubt this is going to go anywhere. If it does go up more, obviously we will need to trend and check an echocardiogram to ensure that his hypotension did not lead to a watershed type myocardial infarction but this seems highly unlikely. 10. Disposition: He will be admitted to the [facility] telemetry floor. Immunizations: Have You Had Influenza Vaccine: No Influenza Vaccine Date: Jul 15, 2010 History of Tetanus Vaccine?: Yes Tetanus Immunization Date: Jul 15, 2010 History of Pneumococcal: Yes Pneumococcal Date: March 03, 2009 History of Hepatitis B Vaccine: No Medication Reconciliation New Medications: Docusate Sodium (Docusate Sodium) 100 Mg Cap 100 MG PO BID for 30 Days, #60 CAP OTC Polyethylene (Miralax) 17 Gm Pow 17 GM PO BID for 30 Days OTC Continued Medications: Allopurinol (Zyloprim) 100 Mg Tab 100 MG PO BID, TAB Amiodarone Hcl (Cordarone) 200 Mg Tab 200 MG PO DAILY, TAB Apixaban (Eliquis) 5 Mg Tab 5 MG PO BID Aspirin (Aspirin) 81 Mg Tab 81 MG PO DAILY Calcitriol (Calcitriol) 0.5 Mcg Cap 0.5 MCG PO 3XWK Diclofenac Sodium (Topical) (Voltaren 1% Top Gel) 1 % Gel 1 APPLN TOP QID PRN for Pain Insulin Aspart (Novolog Flexpen) 100 Units/Ml Inj 20-25 UNITS SC TIDM UP TO 75 UNITS A DAY Insulin Glargine (Basaglar Kwikpen) 100 Unit/Ml Inj 35 UNITS SC HS Ipratropium-Albuterol (Combivent Respimat) 1 Aer Aer 1 PUFFS INH Q6 PRN for PRN, INH Levothyroxine Sodium (Levothyroxine Sodium) 75 Mcg Tab 75 MCG PO DAILY Simvastatin (Zocor) 40 Mg Tab 40 MG PO HS Zolpidem Tartrate (Ambien) 5 Mg Tab 0.25-0.5 TAB PO HS PRN for Insomnia Discontinued Medications: Bumetanide (Bumex) 2 Mg Tab 2 MG PO UD, TAB 2 MG IN THE MORNING AND 1-2 MG IN THE Afternoon Isosorbide Mononitrate Ext Rel (Imdur Ext Rel) 60 Mg Ertab 60 MG PO QAM, TAB Lactulose (Chronulac) 10 Gm/15 Ml Syrp 30 ML PO DAILY Metolazone (Zaroxolyn) 2.5 Mg Tab 2.5 MG PO WK Potassium Ext Rel (Klor-Con) 20 Meq Tabcr 40 MEQ PO BID Spironolactone (Aldactone) 25 Mg Tab 25 MG PO QAM, TAB Discharge Exam Feeling much better. No chest pain, shortness breath, lightheadedness. No headache. Blood pressures have been much improved. Telemetry with paced rhythm with rates in the low 70s. He had 2 bowel movements today so far and feels his abdominal pain is improved. I discussed the case at length with cardiology who also saw the patient simultaneously with me. His daughter translated for us. Review of Systems: Constitutional: No fatigue Eyes: No worsening of vision ENT: No problem reported Respiratory: No shortness of breath, No dyspnea on exertion Cardiovascular: No chest pain, No edema, No palpitations Abdomen: + constipation Musculoskeletal: No problem reported Genitourinary - Male: No problem reported Neurologic: No problem reported Psychiatric: No problem reported Endocrine: No problem reported Hematologic / Lymphatic: No problem reported Integumentary: No problem reported Physical Exam: General Appearance: WD/WN, no apparent distress Eyes: normal inspection, EOMI, sclerae normal ENT: hearing grossly normal Neck: trachea midline Respiratory/Chest: lungs clear, normal breath sounds, no respiratory distress, no accessory muscle use Cardiovascular: regular rate, rhythm, no edema, no gallop, no JVD, no murmur , normal peripheral pulses Abdomen / GI: normal bowel sounds, non tender, soft Extremities: normal inspection, no calf tenderness, no pedal edema Neurologic/Psychiatric: alert, normal mood/affect Skin: normal color, warm/dry, no rash Hospital Course 1. Hypotension. This appears to be due to hypovolemia from his diuretics and possibly from poor p.o. intake recently. He fortunately shows no signs of hemorrhagic shock or other reasons to be hypokalemic. He does not have cardiac symptoms or high enough troponin to be consistent with cardiogenic shock, although obviously will be trending his troponin. He does not show any signs or symptoms of sepsis to be consistent with septic shock and has no reason to have neurogenic shock. Therefore, both by what it looks like and by what it does not look like, it is almost certainly related to hypovolemia. Because of his brittle nature of chronic systolic CHF with a very low EF, we will be doing fluid in bolus and reassess fashion. At this point in time, he has had about a liter and a half and is starting to show perfusing blood pressures. We will follow his blood pressure if his systolic is below 90 or his mean arterial pressure is below 65, we will bolus with 250-500 of saline and then reassess until we are maintaining good stability with his blood pressure. Obviously we will hold off on his diuretics until a later date as well. Will check orthostatics b.i.d. 2. Acute renal failure superimposed on chronic kidney disease approximately stage IV. This obviously is due to hypovolemia. We will follow the basic metabolic panel tomorrow after rehydration and obviously may need to hold off on diuretics for a short term. 3. Constipation. This appears to be fairly severe, although fortunately he does not examine in a bowel obstruction type way. He has been failing lactulose so we will give him MiraLax 2 doses now and then t.i.d. scheduled along with b.i.d. Colace, holding for diarrhea to try to alleviate the constipation. It is quite possible the constipation led to poor p.o. intake led to him still taking his diuretics but getting more dehydrated than he would on a normal day. 4. Headache. This appears to be a chronic muscle tension headache, possibly it was started by the bad tooth creating a lot of reflux, muscle spasm in the same area but at this point in time it really seems to be a suboccipital headache. Utilize Voltaren gel and osteopathic manipulative treatment. 5. Somatic dysfunction cervical region. Osteopathic manipulative treatment as above. We will refer to Talat Geronimo to continue osteopathic manipulative treatment given that the headache appears to be an ongoing very bothersome issue for this gentleman and more than likely ongoing osteopathic manipulative treatment and probably ongoing Voltaren gel can help reduce or maybe even alleviate the problem entirely. 6. Deep venous thrombosis prophylaxis. Anticoagulation. 7. Atrial fibrillation. His rate is controlled. He is anticoagulated. 8. Chronic systolic congestive heart failure with an ischemic cardiomyopathy as above. We will need to follow closely for any kind of signs of decompensation. His chest x-ray looks wet but currently he looks quite dry. 9. Elevated troponin is almost certainly demand ischemia, really more from poor supply from his hypotension than anything. We will recheck in several hours, but I doubt this is going to go anywhere. If it does go up more, obviously we will need to trend and check an echocardiogram to ensure that his hypotension did not lead to a watershed type myocardial infarction but this seems highly unlikely. 10. Disposition: He will be admitted to the [facility] telemetry floor. Total Time Spent: Greater than 30 minutes This includes examination of the patient, discharge planning, medication reconciliation, and communication with other providers. Discharge Instructions Please refer to the electronic Patient Visit Report (Discharge Instructions) for additional information. Follow-Up With cardiology within 1 week With PCP within 1-2 weeks Additional Copies To Augustine Merino MD; Noel Reid M.D.
--- NOTE | 2018-05-25 15:38 | Discharge Instructions ---
Discharge Instructions Date of Service May 25, 2018. Admission Reason for Admission: Hypotension, Renal Failure Discharge Discharge Diagnosis / Problem: Hypotension, acute kidney injury Discharge Goals Goal(s): Improve disease control, Diagnostic testing, Therapeutic intervention Activity Recommendations Activity Limitations: as noted below Exercise/Sports Limitations: gradually increase as tolerated Shower/Bathe: no limitations . Instructions / Follow-Up Instructions / Follow-Up You were admitted with hypotension (low blood pressure). This is most likely due to dehydration. It is okay for you to take your carvedilol and amiodarone, but we have stopped your Imdur permanently. You should also not take your Bumex , metolazone, or Aldactone until seen by the drive in waiter/waitress within the week as scheduled for you. Please measure your blood pressure every day and if the top number is less than 100, or greater than 190, please call your doctor. Please continue to weigh yourself every day and call your doctor if you gain more than 2-3 pounds in a 24 hour period. Your kidney function is back to your baseline after a little bit of IV fluid hydration. Please continue to keep your follow-up appointment with your kidney specialist as scheduled. For your constipation, this is likely the cause of your abdominal pain. Please take MiraLAX 1 capful mixed with 8 ounces of fluid twice a day until you have at least 2-3 bowel movements on a consistent basis every day. You can also take docusate sodium twice a day which is a stool softener. You can buy both these medications off the shelf at the drugstore. These follow-up with your family doctor as scheduled for you in the next 1-2 weeks. Current Hospital Diet Patient's current hospital diet: AHA Diet (Heart Healthy), Low Sodium Diet (2gm Na) Discharge Diet Recommended Diet: Low Sodium Diet (2gm Na) Procedures Procedures Performed: Chest x-ray Pending Studies Studies pending at discharge: no Laboratory Results Hemoglobin A1c Test 03/17/18 10:24 Range/Units Estimated Average Glucose 160 mg/dl Hemoglobin A1c 7.2 H 4.5-5.6 % Medical Emergencies . Who to Call and When: Medical Emergencies: If at any time you feel your situation is an emergency, please call 911 immediately. . Non-Emergent Contact Non-Emergency issues call your: Primary Care Provider, Knife Sharpener Call Non-Emergent contact if: temperature is above 101, your pain is not controlled, your pain is worsening, your pain is unusual for you, your pain is concerning you, you have any medication questions . . "Provider Documentation" section prepared by Zoë Ellis. .
[2018-05-25] MEDS ORDERED: CARVEDILOL 3.125 MG TAB PO SCH (21:00)
== END 2018-05-25 16:05 | disposition home or self-care (01) | DRG 315 ==
LOC: C.EDB 10:50 → C.MED 13:24 → ENRESERV 13:57
PROVIDERS: ADMIT Family Medicine; ATTEND Family Medicine
DX: I95.89 Other hypotension (principal); N17.9 Acute kidney failure, unspecified; I24.8 Other forms of acute ischemic heart disease; I13.0 Hypertensive heart and chronic kidney disease with heart failure and stage 1 through stage 4 chronic kidney disease, or unspecified chronic kidney disease; I50.22 Chronic systolic (congestive) heart failure; N18.4 Chronic kidney disease, stage 4 (severe); E86.1 Hypovolemia; T50.1X5A Adverse effect of loop [high-ceiling] diuretics, initial encounter; K59.00 Constipation, unspecified; G44.209 Tension-type headache, unspecified, not intractable; M99.01 Segmental and somatic dysfunction of cervical region; I48.91 Unspecified atrial fibrillation; I25.5 Ischemic cardiomyopathy; E11.22 Type 2 diabetes mellitus with diabetic chronic kidney disease; I25.10 Atherosclerotic heart disease of native coronary artery without angina pectoris; E78.5 Hyperlipidemia, unspecified; E03.9 Hypothyroidism, unspecified; E55.9 Vitamin D deficiency, unspecified; Z95.810 Presence of automatic (implantable) cardiac defibrillator; Z79.01 Long term (current) use of anticoagulants; Z79.4 Long term (current) use of insulin; Z79.82 Long term (current) use of aspirin; Z79.899 Other long term (current) drug therapy; Z82.49 Family history of ischemic heart disease and other diseases of the circulatory system

== ENCOUNTER → 2018-06-01 | Outpatient (CLI) | payer OTHER ==
[~2018-06-01] MED LIST changes: -BUME2TAB3 PO; +CLC100 PO; -ISOS60TA25 PO; -METO2.5T PO; +MRLP17X PO; -POTA-639 PO; -SPIR25TA PO
[2018-06-01 18:05] LABS: ALBUMIN 3.5 gm/dl (3.4-5.0); BLOOD UREA NITROGEN 28 mg/dl (7-18); CALCIUM 8.8 mg/dl (8.5-10.1); CARBON DIOXIDE 30 mmol/L (21-32); CREATININE 1.88 mg/dl (0.60-1.40); PHOSPHORUS 3.4 mg/dl (2.5-4.9); POTASSIUM 3.7 mmol/L (3.5-5.1); SODIUM 140 mmol/L (136-145)
[2018-06-01 18:19] LABS: GLUCOSE 48 mg/dl (70-99)
== END | disposition home or self-care (01) ==
LOC: C.LAB1850 16:26
PROVIDERS: ATTEND Internal Medicine Nephrology
DX: N18.4 Chronic kidney disease, stage 4 (severe) (principal)

== ENCOUNTER 2018-11-05 08:31 | Inpatient (IN) ==
[~2018-11-05 08:31] MED LIST changes: -ALLO100T PO; -AMIO200T4 PO; -APIX1TAB3 PO; -ASPI-461 PO; -CALC0.5C PO; -CLC100 PO; -DICL1GEL12 TOP; -INSU100I23 SC; -IPRA1AER2 INH; -LEVO75TA5 PO; +LIDOCAINE 5% 1 PATCH TD SCH; -MRLP17X PO; -NVLGI/PEN SC; -SIMV40TA2 PO; -ZOLP5TAB PO
[2018-11-05 09:15] LABS: Basophils # (auto) 0.01 K/uL (0-0.2); Basophils % (auto) 0.1 %; Eosinophils # (auto) 0.15 K/uL (0-0.5); Eosinophils % (auto) 2.1 %; Hematocrit (blood only) 49.2 % (42-52); Hemoglobin 15.2 g/dL (14.0-18.0); Immature Granulocytes # (auto) 0.02 K/uL (0.00-0.02); Immature Granulocytes % (auto) 0.3 %; Lymphocytes % (auto) 9.7 %; Mean Corpuscular Hgb Conc 30.9 g/dL (32-36); Mean Corpuscular Volume 95.3 fL (80-100); Mean Platelet Volume 9.9 fL (7.4-10.4); Monocytes # (auto) 0.85 K/uL (0.11-0.59); Monocytes % (auto) 11.7 %; Neutrophils # (auto) 5.52 K/uL (1.4-6.5); Neutrophils % (auto) 76.1 %; Platelet Count 122 K/uL (130-400); RDW Coefficient of Variation 16.7 % (11.5-14.5); RDW Standard Deviation 57.5 fL (36.4-46.3); Red Blood Count 5.16 M/uL (4.7-6.1); White Blood Count 7.25 K/uL (4.8-10.8)
--- NOTE | 2018-11-05 09:23 | XRay Report ---
XR chest 1V portable CLINICAL HISTORY: Chest Pain dyspnea COMPARISON STUDY: 10/05/2018 FINDINGS: Moderate cardiomegaly. Permanent implantable cardiac pacemaker/fibrillator. Components of c ongestive heart failure. Diaphragms are smooth. IMPRESSION: Congestive heart failure. The above report was generated using voice recognition software. It may contain grammatical, syntax or spelling errors. Electronically signed by: Harjeet Tellez M.D. 11/05/2018 9:22 AM
[2018-11-05 09:33] LABS: BUN Creatinine Ratio 27.1 (10-20); Creatinine Clr Calc Pharmacy 22.5 ml/min; Est GFR (African American) 20.4; Est GFR (Non-African American) 17.6; Magnesium 3.7 mg/dl (1.8-2.4); Potassium 4.7 mmol/L (3.5-5.1)
[2018-11-05 09:52] LABS: Albumin Globulin Ratio 0.7 (0.9-2); Bilirubin,Total 1.5 mg/dl (0.2-1); Globulin 4.1 gm/dl (2.5-4.0); Total Protein 7.1 gm/dl (6.4-8.2); Troponin I 0.076 ng/ml (0-0.045)
[2018-11-05] MEDS ORDERED: BUMETANIDE 2 MG in SYRINGE 0 ML IV ONE (09:56)
--- NOTE | 2018-11-05 10:34 | CT Scan Report ---
ABDOMEN AND PELVIS CT WITHOUT CONTRAST CT DOSE: 2792.91 mGy.cm HISTORY: Acute right-sided flank pain Right flank pain TECHNIQUE: Multiaxial CT images of the abdomen and pelvis were performed without contrast. A dose lo wering technique was utilized adhering to the principles of ALARA. COMPARISON STUDY: CT abdomen and pelvis 06/13/2015. FINDINGS: Severe multichamber cardiac enlargement. Coronary arterial calcifications are noted. Partially imaged pacer/AICD leads. Small bilateral pleural effusions. Bibasilar groundglass and consolidative opaciti es. Respiratory motion limits evaluation of the lung bases. There is no pneumatosis or pneumoperitone um. Study is motion degraded. Unenhanced liver, spleen, gallbladder, pancreas and adrenal glands are unremarkable. No intrahepatic biliary ductal dilation. Mild nonspecific bilateral perinephric stranding. No renal or ureteral calcu li or obstructive uropathy. Urinary bladder and prostate are unremarkable. Small fat filled bilateral inguinal hernias. Extensive calcification of the abdominal aorta without aneurysm. No adenopathy. Mild gaseous distention about the distal esophagus. There may be mild stranding/edema about the rissa hepatis and proximal duodenum, difficult to evaluate secondary to patient motion. There is no bowel obstruction or focal bowel wall thickening identified. Trace free pelvic fluid. Mild colonic divertic ulosis without acute diverticulitis. Multiple stool-filled loops of ileum suggest decreased small bow el transit. Surgically absent appendix. Soft tissues are unremarkable. Tiny fat filled periumbilical hernia, diastases 1.5 cm. Bones appear to be intact. Multilevel facet arthrosis with spondylitic spur ring of the spine. Chondrocalcinosis of the pubic symphysis, intervertebral disc spaces and bilateral femoral acetabular joint. IMPRESSION: 1. Limited study secondary to motion and lack of IV or enteric contrast. 2. Marked cardiomegaly with small bilateral pleural effusions and bibasilar groundglass and consolida tive opacities suggestive of interstitial and alveolar pulmonary edema with atelectasis. A superimpos ed pneumonitis would be difficult to exclude. 3. Suggestion of mild nonspecific stranding about the rissa hepatis and proximal duodenum. 4. Trace dependent pelvic ascites. 5. No bowel obstruction or focal bowel wall thickening. 6. Additional findings as above. Electronically signed by: Brandt Richards M.D. 11/05/2018 10:32 AM
--- NOTE | 2018-11-05 10:38 | Emergency Department Note ---
Entered by Lainey Jeffers acting as a scribe for Jean Sanchez MD History of Present Illness General Chief complaint: Shortness of Breath/Dyspnea Stated complaint: RIGHT KIDNEY PAIN Time Seen by Provider: 11/05/18 08:59 Source: family Mode of arrival: ambulatory Limitations: no limitations History of Present Illness Provider complaint: abdominal and lower extremity edema Onset (ago): week(s) 3 Location: abdomen and lower extremity Pain Consistency: + constant Maximum Pain Intensity: 9 Quality: + other (edema) Associated symptoms: + other (Associated symptoms: cough, shortness of breath, lower back pain, dizziness) The patient is a 78 year old male who presents to the Emergency Room with complaints of constant, worsening abdominal and lower extremity edema beginning 3 weeks ago. History provided by patient's , translating from Swazi. She reports the patient has had a cough and felt unwell for 3 weeks. The states he feels short of breath, which is worse when laying down. She notes he has been complaining of pain in his lower back for the past 2 weeks. The notes the patient is dizzy. She reports he had a pacemaker placed a few weeks ago. The patient has a history of kidney stones. The patient sees Dr. Birmingham as his heel sewer and Dr. Reid as his PCP. Home Medications Home Medications Medication Instructions Recorded Confirmed Type allopurinol 100 mg PO BID 07/13/18 11/05/18 History amiodarone 200 mg PO QDL 07/13/18 11/05/18 History apixaban [Eliquis] 5 mg PO BID 07/13/18 11/05/18 History aspirin [Aspirin Low Dose] 81 mg PO QAM 07/13/18 11/05/18 History bumetanide 3 mg PO QAM 07/13/18 11/05/18 History calcitriol 0.5 mcg PO QAM 07/13/18 11/05/18 History insulin asp prt-insulin aspart 20 - 25 unit SUBCUT DAILY 07/13/18 11/05/18 History [Novolog Mix 70-30FlexPen U-100] insulin glargine [Basaglar KwikPen 35 unit SUBCUT HS 07/13/18 11/05/18 History U-100 Insulin] ipratropium-albuterol [Combivent 1 puff INHALATION Q6H 07/13/18 11/05/18 History Respimat] levothyroxine 75 mcg PO QAM 07/13/18 11/05/18 History potassium chloride 40 meq PO BID 07/13/18 11/05/18 History simvastatin 40 mg PO HS 07/13/18 11/05/18 History zolpidem 1.25 mg PO DIRECTED PRN 07/13/18 11/05/18 History polyethylene glycol 3350 [Miralax] 17 g PO DAILY #30 ea 07/15/18 11/05/18 Rx flaxseed oil 1,000 mg PO TID 10/05/18 11/05/18 History fluocinonide 1 appln TOP DAILY #60 gm 10/05/18 11/05/18 Rx metolazone 1 tab PO 2XWK 10/05/18 11/05/18 History nitroglycerin 1 tab SUBLINGUAL DAILY PRN 10/05/18 11/05/18 History bumetanide 2 mg PO PM 11/05/18 11/05/18 History bumetanide 2 mg PO UD 11/05/18 11/05/18 History docusate sodium [Colace] 100 mg PO BID 11/05/18 11/05/18 History potassium chloride 20 meq PO UD 11/05/18 11/05/18 History Allergies Allergy/AdvReac Type Severity Reaction Status Date / Time No Known Allergies Allergy Verified 11/05/18 10:09 Past Med/Surg History Medical History Atrial fibrillation (Chronic) Hypothyroidism HLD (hyperlipidemia) (Chronic) Aortic stenosis (Chronic) GERD (gastroesophageal reflux disease) (Chronic) Chronic combined systolic and diastolic CHF (congestive heart failure) (Chronic) CKD (chronic kidney disease), stage III (Chronic) Ischemic cardiomyopathy (Chronic) Pulmonary hypertension (Chronic) Arthritis (Chronic) Surgical History S/P cardiac pacemaker procedure Social History Current Living Situation: Spouse Other Information That Helps Us Care for You: No Feels Safe at Home: Yes Safety Concerns: Feels Safe At This Time Smoking Status: Never smoker Do You Dip or Chew Tobacco: No Second Hand Exposure: No Tobacco Cessation Education Requested by Patient: No Hx Alcohol Use: No Hx Substance Use: No Beliefs That Will Affect Care: None Preferred Language: Swazi Communication Ability: Effective Belt Puncher Required: No Review of Systems See HPI for pertinent positives & negatives. and A total of 10 systems reviewed and were otherwise negative Physical Exam Vital Signs Vital Signs - 24 hr 11/05/18 08:49 11/05/18 09:15 11/05/18 10:04 Temperature 36.4 C L Temperature Source Oral Sepsis Recent Fever Within 48 Hours No Sepsis New/Unexplained Change in Mental Status No Sepsis Action Taken by Nursing No Action Required Pulse Rate 72 70 Pulse Rate [Apical] 77 70 Pulse Rate [Finger] Pulse Rhythm [Apical] Pulse Strength [Apical] Respiratory Rate 18 24 24 Respiratory Effort / Characteristics Non-Labored Respiratory Depth Normal Respiratory Pattern Regular Blood Pressure 107/62 Blood Pressure [Right Arm] 95/62 L 98/68 L Blood Pressure Mean 77 Blood Pressure Mean [Right Arm] 73 78 Blood Pressure Position [Right Arm] Pulse Oximetry 88 L 96 93 Oxygen Delivery Method Room Air Room Air Room Air Oxygen Flow Rate 0 11/05/18 10:19 11/05/18 10:41 11/05/18 10:50 Temperature Temperature Source Sepsis Recent Fever Within 48 Hours Sepsis New/Unexplained Change in Mental Status Sepsis Action Taken by Nursing Pulse Rate Pulse Rate [Apical] 70 Pulse Rate [Finger] Pulse Rhythm [Apical] Pulse Strength [Apical] Respiratory Rate 24 Respiratory Effort / Characteristics Spontaneous SOB on Exertion Respiratory Depth Normal Respiratory Pattern Tachypnea Blood Pressure Blood Pressure [Right Arm] 101/78 Blood Pressure Mean Blood Pressure Mean [Right Arm] 85 Blood Pressure Position [Right Arm] Pulse Oximetry 93 96 Oxygen Delivery Method Nasal Cannula Nasal Cannula Nasal Cannula Oxygen Flow Rate 0 2 2 11/05/18 11:31 11/05/18 13:03 11/05/18 16:00 Temperature 36.6 C Temperature Source Oral Sepsis Recent Fever Within 48 Hours Sepsis New/Unexplained Change in Mental Status Sepsis Action Taken by Nursing Pulse Rate Pulse Rate [Apical] 71 71 Pulse Rate [Finger] Pulse Rhythm [Apical] Regular Pulse Strength [Apical] Normal Respiratory Rate 24 26 H Respiratory Effort / Characteristics Non-Labored Spontaneous Short of Breath SOB on Exertion Respiratory Depth Normal Respiratory Pattern Tachypnea Blood Pressure Blood Pressure [Right Arm] 126/55 L 108/80 Blood Pressure Mean Blood Pressure Mean [Right Arm] 78 89 Blood Pressure Position [Right Arm] Pulse Oximetry 88 L 94 Oxygen Delivery Method Nasal Cannula Nasal Cannula Oxygen Flow Rate 2 2 2 11/05/18 16:12 11/05/18 20:16 11/05/18 21:15 Temperature 36.5 C 36.5 C Temperature Source Oral Oral Sepsis Recent Fever Within 48 Hours Sepsis New/Unexplained Change in Mental Status Sepsis Action Taken by Nursing Pulse Rate Pulse Rate [Apical] 70 Pulse Rate [Finger] 71 Pulse Rhythm [Apical] Pulse Strength [Apical] Respiratory Rate 18 18 Respiratory Effort / Characteristics Non-Labored Non-Labored Respiratory Depth Normal Normal Respiratory Pattern Regular Blood Pressure Blood Pressure [Right Arm] 101/66 108/70 Blood Pressure Mean Blood Pressure Mean [Right Arm] 77 82 Blood Pressure Position [Right Arm] Lying Sitting Pulse Oximetry 93 98 Oxygen Delivery Method Room Air Nasal Cannula Nasal Cannula Oxygen Flow Rate 2 2 GENERAL: Awake, alert,fatigued-appearing, in no distress HENT: Normocephalic, atraumatic. Oropharynx unremarkable. EYES: Normal conjunctiva. Sclera non-icteric. NECK: Supple. No nuchal rigidity. FROM. Mild JVD. RESPIRATORY: Mildly dyspneic. Diminished breath sounds at the bases. CARDIAC: Regular rate, normal rhythm. 2/6 systolic murmur. Extremities warm and well perfused. Pulses equal. ABDOMEN: Mild abdominal distension, soft and non-tender. No rebound or guarding. No masses. RECTAL: Deferred. MUSCULOSKELETAL: Chest examination reveals no tenderness. The back is symmetrical on inspection without obvious abnormality. There is no CVA tenderness to palpation. No joint edema. LOWER EXTREMITIES: Calves are equal size bilaterally and non-tender. 2+ bilateral edema. No discoloration. NEURO: Normal sensorium. No sensory or motor deficits noted. SKIN: No rash or jaundice noted. Course 09: Past medical records reviewed. The patient was evaluated in room B11B, and a complete history and physical examination were performed. 0959: I reevaluated and updated the patient. 1031: I reviewed the patient's case with Dr. Dobson, [facility] hospitalist. He will evaluate the patient for further management. 1041: Upon reevaluation, the patient is resting. I discussed test results. They verbalized agreement with the treatment plan. Consultations Consultation #1: I reviewed the patient's case with Dr. Dobson, [facility] hospitalist. He will evaluate the patient for further management. Time: 10:31 Administered Medications Albuterol (Combivent Respimat) 1 puffs INH Q6 JANEL Stop: 12/05/18 13:29 Last Admin: 11/05/18 17:52 Dose: 1 puffs Admin: 11/05/18 14:02 Dose: 1 puffs Allopurinol (Zyloprim) 100 mg PO BID JANEL Stop: 12/05/18 20:59 Last Admin: 11/05/18 21:04 Dose: 100 mg Amiodarone HCl (Cordarone) 200 mg PO QDL JANEL Stop: 12/05/18 13:29 Last Admin: 11/05/18 14:02 Dose: 200 mg Apixaban (Eliquis) 5 mg PO BID JANEL Stop: 12/05/18 20:59 Last Admin: 11/05/18 20:59 Dose: 5 mg Docusate Sodium (Colace) 100 mg PO BID JANEL Stop: 12/05/18 20:59 Last Admin: 11/05/18 20:59 Dose: 100 mg Dobutamine HCl/Dextrose (Dobutamine / D5w) 500 mg in 250 mls @ 15.255 mls/hr IV .[id number] JANEL; Protocol Stop: 12/05/18 13:29 Last Titration: 11/05/18 19:01 Dose: 5.01 mcg/kg/min, 15.3 mls/hr Admin: 11/05/18 13:56 Dose: 5 mcg/kg/min, 15.3 mls/hr Bumetanide 3 mg/ Syringe 12 mls @ 4 mls/min IV Q8 JANEL Stop: 12/05/18 13:59 Last Admin: 11/05/18 21:05 Dose: 4 mls/min Admin: 11/05/18 14:13 Dose: 4 mls/min Insulin Aspart (Novolog Flexpen) 0 units SC ACHS [facility] Stop: 12/05/18 13:29 Last Admin: 11/05/18 21:09 Dose: 2 units Admin: 11/05/18 17:23 Dose: 5 units Admin: 11/05/18 14:04 Dose: 3 units Insulin Glargine (Lantus Solostar Pen) 35 units SQ HS [facility] Stop: 12/05/18 20:59 Last Admin: 11/05/18 21:09 Dose: 35 units Lidocaine (Lidoderm 5%) 1 patch TD QAM [facility] Stop: 12/05/18 13:29 Last Admin: 11/05/18 14:04 Dose: 1 patch Miscellaneous (Remove Lidoderm Patch) 1 ea N/A DAILY@2100 [facility] Stop: 12/05/18 20:59 Last Admin: 11/05/18 21:06 Dose: 1 ea Oxycodone HCl (Roxicodone Immediate Rel) 10 mg PO Q8 PRN PRN Reason: Pain Stop: 11/19/18 13:02 Last Admin: 11/05/18 21:50 Dose: 10 mg Polyethylene Glycol (Miralax Powder Packet) 17 gm PO DAILY PRN PRN Reason: Constipation Stop: 12/05/18 22:04 Last Admin: 11/05/18 22:21 Dose: 17 gm Potassium Chloride (Klor-Con M20) 40 meq PO BID JANEL Stop: 12/05/18 20:59 Last Admin: 11/05/18 20:59 Dose: 40 meq Simvastatin (Zocor) 40 mg PO HS [facility] Stop: 12/05/18 20:59 Last Admin: 11/05/18 21:04 Dose: 40 mg Discontinued Medications Bumetanide 2 mg/ Syringe 8 mls @ 4 mls/min IV ONE ONE Stop: 11/05/18 09:57 Last Admin: 11/05/18 10:33 Dose: 4 mls/min Medical Decision Making Differential Diagnosis Etiologies such as infections, reactive airway disease, COPD, pneumonia, pleural effusion, pulmonary edema, ARDS, pneumothorax, CHF, cardiac ischemia, cardiac tamponade, dysrhythmia, anemia, pulmonary embolism, musculoskeletal, gastrointestinal process, as well as others were entertained. Medical Records Attestation: I reviewed the patient's medical records. Home Medications Current Medication List: was personally reviewed by me Laboratory Data Attestation: I reviewed the patient's lab results. Result diagrams: 11/05/18 09:10 11/05/18 09:10 Lab Results 11/05/18 11/05/18 11/05/18 Range/Units 09:10 09:10 09:10 WBC 7.25 (4.8-10.8) K/uL RBC 5.16 (4.7-6.1) M/uL Hgb 15.2 (14.0-18.0) g/dL Hct 49.2 (42-52) % MCV 95.3 (80-100) fL MCH 29.5 (25-34) pg MCHC 30.9 L (32-36) g/dL RDW Std Deviation 57.5 H (36.4-46.3) fL RDW Coeff of Ebenezer 16.7 H (11.5-14.5) % Plt Count 122 L (130-400) K/uL MPV 9.9 (7.4-10.4) fL Immature Gran % (Auto) 0.3 % Neut % (Auto) 76.1 % Lymph % (Auto) 9.7 % [place] % (Auto) 11.7 % Eos % (Auto) 2.1 % Baso % (Auto) 0.1 % Immature Gran # (Auto) 0.02 (0.00-0.02) K/uL Neut # (Auto) 5.52 (1.4-6.5) K/uL Lymph # (Auto) 0.70 L (1.2-3.4) K/uL [place] # (Auto) 0.85 H (0.11-0.59) K/uL Eos # (Auto) 0.15 (0-0.5) K/uL Baso # (Auto) 0.01 (0-0.2) K/uL Sodium 136 (136-145) mmol/L Potassium 4.7 (3.5-5.1) mmol/L Chloride 98 (98-107) mmol/L Carbon Dioxide 35 H (21-32) mmol/L Anion Gap 3.0 (3-11) BUN 88 H (7-18) mg/dl Creatinine 3.23 H (0.6-1.4) mg/dl Est Cr Clr Drug Dosing 22.5 ml/min Est GFR ( Amer) 20.4 Est GFR (Non-Af Amer) 17.6 BUN/Creatinine Ratio 27.1 H (10-20) Glucose 135 H (70-99) mg/dl POC Glucose (70-99) Calcium 9.0 (8.5-10.1) mg/dl Magnesium 3.7 H (1.8-2.4) mg/dl Total Bilirubin 1.5 H (0.2-1) mg/dl AST 39 H (15-37) U/L ALT 40 (12-78) U/L Alkaline Phosphatase 138 H (45-117) U/L Troponin I 0.076 H* (0-0.045) ng/ml NT-Pro-B Natriuret Pep 6238 H (0-1800) pg/ml Total Protein 7.1 (6.4-8.2) gm/dl Albumin 3.0 L (3.4-5.0) gm/dl Globulin 4.1 H (2.5-4.0) gm/dl Albumin/Globulin Ratio 0.7 L (0.9-2) Lipase 376 (73-393) U/L 11/05/18 11/05/18 11/05/18 Range/Units 14:00 16:46 21:00 WBC (4.8-10.8) K/uL RBC (4.7-6.1) M/uL Hgb (14.0-18.0) g/dL Hct (42-52) % MCV (80-100) fL MCH (25-34) pg MCHC (32-36) g/dL RDW Std Deviation (36.4-46.3) fL RDW Coeff of Ebenezer (11.5-14.5) % Plt Count (130-400) K/uL MPV (7.4-10.4) fL Immature Gran % (Auto) % Neut % (Auto) % Lymph % (Auto) % [place] % (Auto) % Eos % (Auto) % Baso % (Auto) % Immature Gran # (Auto) (0.00-0.02) K/uL Neut # (Auto) (1.4-6.5) K/uL Lymph # (Auto) (1.2-3.4) K/uL [place] # (Auto) (0.11-0.59) K/uL Eos # (Auto) (0-0.5) K/uL Baso # (Auto) (0-0.2) K/uL Sodium (136-145) mmol/L Potassium (3.5-5.1) mmol/L Chloride (98-107) mmol/L Carbon Dioxide (21-32) mmol/L Anion Gap (3-11) BUN (7-18) mg/dl Creatinine (0.6-1.4) mg/dl Est Cr Clr Drug Dosing ml/min Est GFR ( Amer) Est GFR (Non-Af Amer) BUN/Creatinine Ratio (10-20) Glucose (70-99) mg/dl POC Glucose 101 H 154 H 197 H (70-99) Calcium (8.5-10.1) mg/dl Magnesium (1.8-2.4) mg/dl Total Bilirubin (0.2-1) mg/dl AST (15-37) U/L ALT (12-78) U/L Alkaline Phosphatase (45-117) U/L Troponin I (0-0.045) ng/ml NT-Pro-B Natriuret Pep (0-1800) pg/ml Total Protein (6.4-8.2) gm/dl Albumin (3.4-5.0) gm/dl Globulin (2.5-4.0) gm/dl Albumin/Globulin Ratio (0.9-2) Lipase (73-393) U/L Imaging Data Radiologist's Impression: Radiology results as stated below per my review and the radiologist's interpretation: ABDOMEN AND PELVIS CT WITHOUT CONTRAST CT DOSE: 2792.91 mGy.cm HISTORY: Acute right-sided flank pain Right flank pain TECHNIQUE: Multiaxial CT images of the abdomen and pelvis were performed without contrast. A dose lowering technique was utilized adhering to the principles of ALARA. COMPARISON STUDY: CT abdomen and pelvis 06/13/2015. FINDINGS: Severe multichamber cardiac enlargement. Coronary arterial calcifications are noted. Partially imaged pacer/AICD leads. Small bilateral pleural effusions. Bibasilar groundglass and consolidative opacities. Respiratory motion limits evaluation of the lung bases. There is no pneumatosis or pneumoperitoneum. Study is motion degraded. Unenhanced liver, spleen, gallbladder, pancreas and adrenal glands are unremarkable. No intrahepatic biliary ductal dilation. Mild nonspecific bilateral perinephric stranding. No renal or ureteral calculi or obstructive uropathy. Urinary bladder and prostate are unremarkable. Small fat filled bilateral inguinal hernias. Extensive calcification of the abdominal aorta without aneurysm. No adenopathy. Mild gaseous distention about the distal esophagus. There may be mild stranding/ edema about the rissa hepatis and proximal duodenum, difficult to evaluate secondary to patient motion. There is no bowel obstruction or focal bowel wall thickening identified. Trace free pelvic fluid. Mild colonic diverticulosis without acute diverticulitis. Multiple stool-filled loops of ileum suggest decreased small bowel transit. Surgically absent appendix. Soft tissues are unremarkable. Tiny fat filled periumbilical hernia, diastases 1.5 cm. Bones appear to be intact. Multilevel facet arthrosis with spondylitic spurring of the spine. Chondrocalcinosis of the pubic symphysis, intervertebral disc spaces and bilateral femoral acetabular joint. IMPRESSION: 1. Limited study secondary to motion and lack of IV or enteric contrast. 2. Marked cardiomegaly with small bilateral pleural effusions and bibasilar groundglass and consolidative opacities suggestive of interstitial and alveolar pulmonary edema with atelectasis. A superimposed pneumonitis would be difficult to exclude. 3. Suggestion of mild nonspecific stranding about the rissa hepatis and proximal duodenum. 4. Trace dependent pelvic ascites. 5. No bowel obstruction or focal bowel wall thickening. 6. Additional findings as above. Electronically signed by: Brandt Richards M.D. 11/05/2018 10:32 AM XR chest 1V portable CLINICAL HISTORY: Chest Pain dyspnea COMPARISON STUDY: 10/05/2018 FINDINGS: Moderate cardiomegaly. Permanent implantable cardiac pacemaker/ fibrillator. Components of congestive heart failure. Diaphragms are smooth. IMPRESSION: Congestive heart failure. The above report was generated using voice recognition software. It may contain grammatical, syntax or spelling errors. Electronically signed by: Harjeet Tellez M.D. 11/05/2018 9:22 AM ECG Data Attestation: I personally reviewed and interpreted this ECG as follows: Indication: SOB/dyspnea Rate (beats per minute): 73 Rhythm: other (V-paced rhythm) Findings: no PAC, no PVC, no ST depression and no ST elevation Blood Pressure Blood Pressure Findings: Normal blood pressure Blood Pressure Disposition: did not require urgent referral MDM Narrative The patient is a pleasant 78-year-old Swazi-speaking gentleman with complicated past medical history of systolic heart failure status post AICD/PPM on Bumex, CAD, CKD, A. fib on Eliquis, IDDM 2 who presents emergency department with worsening fluid retention associated shortness of breath with right flank pain per hpi. Patient reports having his Bumex increased after contacting his heel sewer however reports no improvement with this. On arrival the patient is in no acute distress, afebrile stable vital signs, initially 93% on room air however then would desaturate to 88% on room air and so placed on nasal cannula. On exam he does appear mildly dyspneic/orthopneic where he insists on sitting up. EKG demonstrates paced rhythm. Chest x-ray consistent with congestive failure. WBC and H/H within normal limits. Platelets 120s within patient's baseline range. Creatinine 3.2 and BUN 88 within patient's baseline renal function although higher end of range. Troponin 0.076 within patient's range of chronic troponin elevation in the setting of CKD. BNP 6000s increased from 4000s in June 2018. CT ordered and pending to further evaluate the patient's right flank pain however given the patient's increased fluid retention with oxygen requirement reasonable to admit the patient for further management. Case was discussed with Dr. Dobson, [facility] hospitalist, who will evaluate the patient for admission. CT abd/pelvis with evidence of volume overload. Impression & Plan CHF exacerbation Discharge Plan Visit Data *Final* Discharge Date/Time: 11/05/18 12:34 Chief Complaint: Shortness of Breath/Dyspnea Stated Complaint: RIGHT KIDNEY PAIN Other Complaint: Kidney Stone ED Provider: Jean Sanchez Discharge Problem: CHF exacerbation Patient Disposition: Admitted As Inpatient Discharge Instructions Interventions: ED Discharge Assessment Last Done: 11/05/18 12:34 The scribe's documentation has been prepared under my direction and personally reviewed by me in its entirety. I confirm that the note above accurately reflects all work, treatment, procedures, and medical decision making performed by me.
--- NOTE | 2018-11-05 10:42 | History & Physical Report ---
Date of Service November 05, 2018 Assessment & Plan (1) Chronic combined systolic and diastolic CHF (congestive heart failure): Patient has recurrent combined systolic and diastolic heart failure with volume overload hypoxia and chest x-ray changes consistent with heart failure. Will the patient brought into telemetry we will try a dobutamine drip with intravenous Bumex therapy watching his chronic kidney disease to prevent it from worsening (2) CKD (chronic kidney disease), stage III: Patient suffering with chronic kidney disease stage III or IV appropriate dosing of medications and concern to watch for renal distress with the diuresis (3) Atrial fibrillation: Patient is a history of atrial fibrillation and is currently paced ventricularly. He is maintained on Eliquis therapy in addition to amiodarone (4) Hypothyroidism: Maintains on Synthroid (5) Diabetes: Patient will be on basal bolus insulin with carb coverage and sliding scale written for diabetic diet frequent glucose checks to monitor for toxic effects of insulin (6) Acute back pain: Patient's acute back pain is more down his right sacroiliac joint. He did have a CT scan of his abdomen to rule out renal stones. We will try local topical Lidoderm and oral oxycodone. (7) DVT prophylaxis: Eliquis therapy serves as his DVT prevention History of Present Illness Primary Care Provider: Noel Reid MD Mr. Davidson is a 77-year-old Czech speaking male with a medical history significant for coronary artery disease, ischemic cardiomyopathy (EF 25-30%), chronic systolic CHF, S/P biventricular ICD implantation, ventricular tachycardia, chronic atrial fibrillation, hypertension, hypercholesterolemia, moderate /MR, insulin-dependent diabetes, and chronic kidney disease stage 4 He presents to the emergency department today markedly dyspneic short of breath with increased swelling of his lower legs. 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 He denies any discretion of food or medications. He does provide his medicine list which includes Bumex and metolazone. The emergency room doctor thought that they were increasing Bumex doses as an outpatient although the patient did not corroborate this. Patient had no chest pain associated with it and feels he has had reasonable urine output Allergies Allergy/AdvReac Type Severity Reaction Status Date / Time No Known Allergies Allergy Verified 11/05/18 10:09 Home Medications Home Medications Medication Instructions Recorded Confirmed Type allopurinol 100 mg PO BID 07/13/18 11/05/18 History amiodarone 200 mg PO QDL 07/13/18 11/05/18 History apixaban [Eliquis] 5 mg PO BID 07/13/18 11/05/18 History aspirin [Aspirin Low Dose] 81 mg PO QAM 07/13/18 11/05/18 History bumetanide 3 mg PO QAM 07/13/18 11/05/18 History calcitriol 0.5 mcg PO QAM 07/13/18 11/05/18 History insulin asp prt-insulin aspart 20 - 25 unit SUBCUT DAILY 07/13/18 11/05/18 History [Novolog Mix 70-30FlexPen U-100] insulin glargine [Basaglar KwikPen 35 unit SUBCUT HS 07/13/18 11/05/18 History U-100 Insulin] ipratropium-albuterol [Combivent 1 puff INHALATION Q6H 07/13/18 11/05/18 History Respimat] levothyroxine 75 mcg PO QAM 07/13/18 11/05/18 History potassium chloride 40 meq PO BID 07/13/18 11/05/18 History simvastatin 40 mg PO HS 07/13/18 11/05/18 History zolpidem 1.25 mg PO DIRECTED PRN 07/13/18 11/05/18 History polyethylene glycol 3350 [Miralax] 17 g PO DAILY #30 ea 07/15/18 11/05/18 Rx flaxseed oil 1,000 mg PO TID 10/05/18 11/05/18 History fluocinonide 1 appln TOP DAILY #60 gm 10/05/18 11/05/18 Rx metolazone 1 tab PO 2XWK 10/05/18 11/05/18 History nitroglycerin 1 tab SUBLINGUAL DAILY PRN 10/05/18 11/05/18 History bumetanide 2 mg PO PM 11/05/18 11/05/18 History bumetanide 2 mg PO UD 11/05/18 11/05/18 History docusate sodium [Colace] 100 mg PO BID 11/05/18 11/05/18 History potassium chloride 20 meq PO UD 11/05/18 11/05/18 History Past Med/Surg History Social History Current Living Situation: Spouse Other Information That Helps Us Care for You: No Feels Safe at Home: Yes Safety Concerns: Feels Safe At This Time Smoking Status: Never smoker Do You Dip or Chew Tobacco: No Second Hand Exposure: No Tobacco Cessation Education Requested by Patient: No Hx Alcohol Use: No Hx Substance Use: No Beliefs That Will Affect Care: None Preferred Language: Czech Communication Ability: Effective 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 Mild to moderate distress No double vision blurry vision No problems with speech or swallowing No palpitations, chest pain or pressure Dyspnea on exertion and orthopnea No abdominal pain nausea vomiting diarrhea changes in appetite or weight No burning urine urine frequency or changes in color Lateral leg pain due to significant edema No skin rashes or oral lesions No unusual bruising or bleeding Right-sided CVA angle tenderness or hip tenderness near the SI joint area by his pointing No changes in memory or confusion Physical Exam 2 Vital Signs (Past 24 Hours): Last Vital Signs Temp 36.4 C L 11/05/18 08:49 Pulse 70 11/05/18 10:04 Resp 24 11/05/18 10:04 BP 98/68 L 11/05/18 10:04 Pulse Ox 93 11/05/18 10:19 The patient appeared well nourished and normally developed. He is in moderate distress Vital signs as documented. He is hypoxic Head exam is unremarkable. Oropharynx is clear Neck is with jugular venous distension, but no thyromegaly, or lymphademopathy Lungs are bibasilar rales one half the way up poor air movement in the apices Cardiac exam reveals Rhythm is regular. Systolic murmur is heard Abdominal exam reveals normal bowel sounds, no masses, no organomegaly Extremities are moderately edematous and both pedal pulses are present Neurologic exam is A&Ox3, no focal deficits, strength is equal bilateral Skin is warm Dry without bruises some changes of chronic venous stasis noted to his lower legs Results & Data Diagnostic Findings CT abd pelvis 1. Limited study secondary to motion and lack of IV or enteric contrast. 2. Marked cardiomegaly with small bilateral pleural effusions and bibasilar groundglass and consolidative opacities suggestive of interstitial and alveolar pulmonary edema with atelectasis. A superimposed pneumonitis would be difficult to exclude. 3. Suggestion of mild nonspecific stranding about the rissa hepatis and proximal duodenum. 4. Trace dependent pelvic ascites. 5. No bowel obstruction or focal bowel wall thickening. CXR shows heart failure EKG shows ventricularly paced wide-complex rhythm _ (1) Atrial fibrillation Atrial fibrillation type: permanent Qualified Code(s): I48.2 - Chronic atrial fibrillation
[2018-11-05] MEDS ORDERED: DEXTROSE 50% 50 ML SYRINGE IV PRN (13:03)
[2018-11-05] MEDS ORDERED: GLUCOSE 40% GEL 15 GM TUBE PO PRN (13:03)
[2018-11-05] MEDS ORDERED: GLUCAGON FOR INJ 1 MG VIAL SQ PRN (13:03)
[2018-11-05] MEDS ORDERED: NITROGLYCERIN SL 0.4 MG/TAB TAB SL PRN (13:03)
[2018-11-05] MEDS ORDERED: GLUCOSE 10 TABS/TUBE PO PRN (13:03)
[2018-11-05] MEDS ORDERED: CARBOHYDRATES FOR HYPOGLYCEMIA PO PRN (13:03)
[2018-11-05] MEDS ORDERED: ONDANSETRON INJ 2 MG/ML 2 ML VIAL IV PRN (13:03)
[2018-11-05] MEDS: DOBUTamine / D5W 500 MG/250 ML BAG IV SCH (13:56)
[2018-11-05] MEDS: AMIODARONE 200 MG TAB PO SCH (14:02)
[2018-11-05] MEDS: IPRATROPIUM BROMIDE/ALBUTEROL respimat INH INH SCH ×3 (14:02→23:43)
[2018-11-05] MEDS: LIDOCAINE 5% 1 PATCH TD SCH (14:04)
[2018-11-05] MEDS: INSULIN ASPART 100 UNITS/ML 3 ML PEN SC SCH ×3 (14:04→21:09)
[2018-11-05] MEDS: BUMETANIDE 3 MG in SYRINGE 0 ML IV SCH ×2 (14:13→21:05)
--- NOTE | 2018-11-05 15:40 | Cardiology Consultation ---
Date of Consultation November 05, 2018 Assessment & Plan (1) CHF exacerbation: The patient was admitted with acute on chronic systolic CHF. Suspect this is secondary to the patient's noncompliance with his diet and medications. The case was discussed with Dr. Dobson and we have opted to start him on intravenous dobutamine along with his intravenous Bumex. Of note, the patient typically takes carvedilol 6.25 mg b.i.d.. This is not on his current medication list. (2) Ischemic cardiomyopathy: Most recent echocardiogram performed in August 2017 noted an ejection fraction of 25-30% with multiple wall motion abnormalities. He also had evidence of moderate aortic stenosis. (3) CAD (coronary artery disease), [place] coronary artery: The patient has a history of LAD stenting x2. Has not had difficulty with angina pectoris. (4) Atrial fibrillation: The patient typically takes Eliquis 5 mg twice daily for his long-term anticoagulant. History of Present Illness Attending Physician: Matt Dobson MD History of Present Illness Mr. Davidson is a 78-year-old male with a complex past medical history was admitted earlier today in decompensated systolic CHF. This consultation was ordered to assist his cardiac management. Of note, the patient typically follows with Dr. Birmingham in the outpatient setting. The patient was in his usual state of marginal health until approximately 1 week ago when he began to note progressive exertional dyspnea and lower extremity edema. He was seen in the office on November 02 by BILL Sepulveda, and Dr. Birmingham. He was noted to be hypervolemic at that time and his Bumex dose was increased. He was set up for close follow-up in 1 week. Unfortunately, it has been documented on numerous occasions that the patient is not compliant with his diet or his medications. The patient has a longstanding history of chronic systolic CHF and an ischemic cardiomyopathy. He had an upgrade of his single-chamber ICD back in October 2017 and now has a biventricular pacer/ICD. His medications reviewed in detail. A 10 point review of systems was undertaken and negative except for that described above. Past medical history 1. Coronary artery disease 2. LAD stent x2 3. Ischemic [id number]-10-18% 4. Chronic atrial fibrillation 5. Ventricular tachycardia 6. Biventricular pacemaker/ICD-October 2017 7. Chronic systolic CHF 8. Hypertension 9. Hypercholesterolemia 10. Chronically elevated troponin I level 11. Moderate aortic stenosis 12. Moderate mitral regurgitation 13. Diabetes mellitus 14. Chronic renal failure Social history and lives with his No tobacco or alcohol Family history Noncontributory Review of systems A 10 point review of systems was negative except for that described above. Allergies Allergy/AdvReac Type Severity Reaction Status Date / Time No Known Allergies Allergy Verified 11/05/18 10:09 Home Medications Home Medications Medication Instructions Recorded Confirmed Type allopurinol 100 mg PO BID 07/13/18 11/05/18 History amiodarone 200 mg PO QDL 07/13/18 11/05/18 History apixaban [Eliquis] 5 mg PO BID 07/13/18 11/05/18 History aspirin [Aspirin Low Dose] 81 mg PO QAM 07/13/18 11/05/18 History bumetanide 3 mg PO QAM 07/13/18 11/05/18 History calcitriol 0.5 mcg PO QAM 07/13/18 11/05/18 History insulin asp prt-insulin aspart 20 - 25 unit SUBCUT DAILY 07/13/18 11/05/18 History [Novolog Mix 70-30FlexPen U-100] insulin glargine [Basaglar KwikPen 35 unit SUBCUT HS 07/13/18 11/05/18 History U-100 Insulin] ipratropium-albuterol [Combivent 1 puff INHALATION Q6H 07/13/18 11/05/18 History Respimat] levothyroxine 75 mcg PO QAM 07/13/18 11/05/18 History potassium chloride 40 meq PO BID 07/13/18 11/05/18 History simvastatin 40 mg PO HS 07/13/18 11/05/18 History zolpidem 1.25 mg PO DIRECTED PRN 07/13/18 11/05/18 History polyethylene glycol 3350 [Miralax] 17 g PO DAILY #30 ea 07/15/18 11/05/18 Rx flaxseed oil 1,000 mg PO TID 10/05/18 11/05/18 History fluocinonide 1 appln TOP DAILY #60 gm 10/05/18 11/05/18 Rx metolazone 1 tab PO 2XWK 10/05/18 11/05/18 History nitroglycerin 1 tab SUBLINGUAL DAILY PRN 10/05/18 11/05/18 History bumetanide 2 mg PO PM 11/05/18 11/05/18 History bumetanide 2 mg PO UD 11/05/18 11/05/18 History docusate sodium [Colace] 100 mg PO BID 11/05/18 11/05/18 History potassium chloride 20 meq PO UD 11/05/18 11/05/18 History Patient History Social History Current Living Situation: Spouse Other Information That Helps Us Care for You: No Feels Safe at Home: Yes Safety Concerns: Feels Safe At This Time Smoking Status: Never smoker Do You Dip or Chew Tobacco: No Second Hand Exposure: No Tobacco Cessation Education Requested by Patient: No Hx Alcohol Use: No Hx Substance Use: No Beliefs That Will Affect Care: None Preferred Language: [place] Communication Ability: Effective 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 HEENT exam is negative. Neck is supple with full carotid upstrokes. No carotid bruits. Jugular venous pressure elevated to the angle of the jaw. No thyromegaly. Cardiovascular exam reveals a regular rhythm with distant heart sounds. No obvious murmurs. No S3. Lungs note decrease breath sounds and rales at the bases bilaterally. Abdomen is obese without bruits. Chest reveals a palpable device in the left subclavicular region. Extremities reveal intact radial artery pulses bilaterally. 2+ pretibial edema is noted. Results & Data Laboratory Results CBC notes hemoglobin 15.2, crit 49.2, white count 7.25, platelet count 196354. Electrolytes notice sodium of 136, potassium 4.7, chloride 98, bicarb 35, BUN 80 , creatinine 3.23, glucose of 101. Troponin I levels mildly elevated 0.076. BNP is 6238. Diagnostic Findings EKG notes atrial fibrillation and a ventricular paced rhythm. Biventricular device is noted. Chest x-ray notes cardiomegaly and evidence of CHF. equipment monitor phototypesetting notes appropriate ventricular pacing. _ (1) CHF exacerbation Heart failure type: systolic Qualified Code(s): I50.23 - Acute on chronic systolic (congestive) heart failure (2) Atrial fibrillation Atrial fibrillation type: permanent Qualified Code(s): I48.2 - Chronic atrial fibrillation
[2018-11-05] MEDS: DOCUSATE SODIUM 100 MG CAP PO SCH (20:59)
[2018-11-05] MEDS: POTASSIUM CHLORIDE 20 MEQ TABCR PO SCH (20:59)
[2018-11-05] MEDS: APIXABAN 5 MG TABLET PO SCH (20:59)
[2018-11-05] MEDS: ALLOPURINOL 100 MG TAB PO SCH (21:04)
[2018-11-05] MEDS: SIMVASTATIN 40 MG TAB PO SCH (21:04)
[2018-11-05] MEDS: INSULIN GLARGINE SOLOSTAR 100 UNITS/ML 3 ML PEN SQ SCH (21:09)
[2018-11-05] MEDS: OXYCODONE HCL IR 5 MG TAB (IMMEDIATE RELEASE) PO PRN (21:50)
[2018-11-05] MEDS: POLYETHYLENE (MIRALAX) 17 GM PACK PO PRN (22:21)
[2018-11-06] MEDS: IPRATROPIUM BROMIDE/ALBUTEROL respimat INH INH SCH ×4 (06:09→23:45)
[2018-11-06] MEDS: BUMETANIDE 3 MG in SYRINGE 0 ML IV SCH ×3 (06:10→22:03)
[2018-11-06] MEDS: DOBUTamine / D5W 500 MG/250 ML BAG IV SCH ×2 (06:41→22:11)
[2018-11-06 06:47] LABS: Estimated Average Glucose 148 mg/dl
[2018-11-06 06:59] LABS: BUN Creatinine Ratio 28.1 (10-20); Calcium 8.4 mg/dl (8.5-10.1); Creatinine Clr Calc Pharmacy 25.1 ml/min; Est GFR (African American) 23.7; Est GFR (Non-African American) 20.4; Potassium 3.5 mmol/L (3.5-5.1); Troponin I 0.078 ng/ml (0-0.045)
[2018-11-06] MEDS: MoRPHine SULFATE 2 MG/ML CARP IV PRN (08:16)
[2018-11-06] MEDS: POTASSIUM CHLORIDE 20 MEQ TABCR PO SCH ×2 (08:19→20:16)
[2018-11-06] MEDS: FLUOCINONIDE 0.05% CR 15 GM TUBE EXT SCH (08:19)
[2018-11-06] MEDS: CALCITRIOL 0.25 MCG CAPSULE PO SCH (08:19)
[2018-11-06] MEDS: APIXABAN 5 MG TABLET PO SCH ×2 (08:19→20:16)
[2018-11-06] MEDS: ASPIRIN 81 MG ECTAB PO SCH (08:19)
[2018-11-06] MEDS: LEVOTHYROXINE SODIUM 75 MCG TABLET PO SCH (08:20)
[2018-11-06] MEDS: POLYETHYLENE (MIRALAX) 17 GM PACK PO SCH (08:20)
[2018-11-06] MEDS: LIDOCAINE 5% 1 PATCH TD SCH (08:20)
[2018-11-06] MEDS: DOCUSATE SODIUM 100 MG CAP PO SCH ×2 (08:21→20:15)
[2018-11-06] MEDS: INSULIN ASPART 100 UNITS/ML 3 ML PEN SC SCH ×4 (08:23→20:18)
[2018-11-06] MEDS: ALLOPURINOL 100 MG TAB PO SCH ×2 (12:09→20:17)
[2018-11-06] MEDS: AMIODARONE 200 MG TAB PO SCH (12:10)
--- NOTE | 2018-11-06 12:33 | Cardiology Progress Note ---
Date of Service November 06, 2018 Assessment & Plan (1) CHF exacerbation: The patient was admitted with acute on chronic systolic CHF. Suspect this is secondary to the patient's noncompliance with his diet and medications. He has lost some weight with diuresis, however he remains well above his weight in June and has evidence of ongoing edema and fluid retention. He will need more diuresis. (2) Ischemic cardiomyopathy: Most recent echocardiogram performed in August 2017 noted an ejection fraction of 25-30% with multiple wall motion abnormalities. He also had evidence of moderate aortic stenosis. (3) CAD (coronary artery disease), [place] coronary artery: The patient has a history of LAD stenting x2. Has not had difficulty with angina pectoris. (4) Atrial fibrillation: The patient typically takes Eliquis 5 mg twice daily for his long-term anticoagulant. His rate is well controlled currently, he should be pacing most of the time with his biventricular pacer, so we do need good heart rate control. Subjective He has multiple somatic complaints including headache, bloating in his stomach, left-sided chest discomfort, leg swelling. He feels that his breathing has improved. Physical Exam 2 Vital Signs (Past 24 Hours): Last Vital Signs Temp 36.5 C 11/06/18 11:30 Pulse 70 11/06/18 11:30 Resp 20 11/06/18 11:30 BP 100/61 11/06/18 11:30 Pulse Ox 90 11/06/18 11:30 Physical Exam: Constitutional: Alert, cooperative and in no distress. Pulmonary: Clear to auscultation bilaterally. Cardiac: Regular rhythm with a grade 2/6 holosystolic murmur at the apex, no gallop or rub. Abdomen: Soft, nontender with normal bowel sounds. Extremities: +3 bilateral pretibial edema. Skin: No rash, ecchymoses or petechiae. Results & Data Diagnostic Findings Telemetry: Underlying atrial fibrillation, ventricular pacing throughout _ (1) CHF exacerbation Heart failure type: systolic Qualified Code(s): I50.23 - Acute on chronic systolic (congestive) heart failure (2) Atrial fibrillation Atrial fibrillation type: permanent Qualified Code(s): I48.2 - Chronic atrial fibrillation
[2018-11-06] MEDS ORDERED: SODIUM CHLORIDE 0.65% NA SOLN 45 ML (OCEAN) ONE (14:55)
--- NOTE | 2018-11-06 15:56 | Hospitalist Progress Note ---
Date of Service November 06, 2018 Assessment & Plan (1) Chronic combined systolic and diastolic CHF (congestive heart failure): acute exacerbation of chronic heart failure diuresing with Bumex and Dobutamine, continue for today will need to follow daily weight as patient will not use urinal consistently breathing is better, less edema Cr holding at 2.8, continue to monitor cardiology following (2) CKD (chronic kidney disease), stage III: Cr improved to 2.8 from 3.2 likely better renal perfusion with the dobutamine continue to monitor, electrolytes stable (3) Atrial fibrillation: continue Amiodarone and Eliquis patient is paced on the monitor (4) Angina at rest: due to history of CAD minimal rise in troponin, not significant cannot interpret EKG due to paced rhythm Morphine PRN (5) Hypothyroidism: Maintains on Synthroid (6) Diabetes: Patient will be on basal bolus insulin with carb coverage and sliding scale written for diabetic diet frequent glucose checks to monitor for toxic effects of insulin monitor for hypoglycemia (7) Acute back pain: Patient's acute back pain is more down his right sacroiliac joint. He did have a CT scan of his abdomen to rule out renal stones. We will try local topical Lidoderm and oral oxycodone. pain better today, not complaining at all (8) DVT prophylaxis: Eliquis therapy serves as his DVT prevention Subjective patient says his breathing is better today he is making a lot of urine, however, he is not using the urinal as instructed so unsure of output amount will follow his weight had a mild episode of chest pain this AM, went away with Morphine discussed that his troponins are all low, no evidence for CA, likely chronic angina reviewed labs, Cr down slightly to 2.8 from 3.2, potassium stable discussed with cardiology, appreciate recommendations Review of Systems All systems reviewed & are unremarkable except as noted in HPI & below Cardiovascular: + chest pain, + chest pain at rest, + dyspnea on exertion, + orthopnea and + edema Physical Exam 2 Vital Signs (Past 24 Hours): Last Vital Signs Temp 36.5 C 11/06/18 15:16 Pulse 70 11/06/18 15:30 Resp 20 11/06/18 15:16 BP 103/67 11/06/18 15:16 Pulse Ox 94 11/06/18 15:16 Constitutional: WD/WN, vitals as above Eyes: PERRL, conjunctivae normal, anicteric sclerae ENMT: external ear and nose normal, oropharynx normal Neck: trachea midline, no thyromegaly Respiratory: normal respiratory effort; no respiratory distress Auscultation: + diminished lung sounds and + rales (bases) Cardiovascular: Rate/Rhythm: regular rate Heart Sounds: normal S1 and normal S2; no murmur Vessels: normal peripheral pulses; no JVD Extremities : + pedal edema Gastrointestinal (Abdomen): normal bowel sounds, soft, nontender, no hepatosplenomegaly Musculoskeletal: no cyanosis or clubbing, extremities motor strength 5/5 Skin: no rashes, warm and dry Neurologic: patellar DTR's 2+ bilat, sensation intact and PERRL, EOMI, accommodation nl, no face palsy, no dysarthria Psychiatric: A+Ox3, euthymic affect Lymphatic: no cervical or axillary lymphadenopathy Results & Data Laboratory Results Laboratory Results - last 24 hr 11/05/18 11/05/18 11/06/18 16:46 21:00 05:56 Sodium 136 Potassium 3.5 D Chloride 98 Carbon Dioxide 35 H Anion Gap 3.0 BUN 80 H Creatinine 2.86 H D Est Cr Clr Drug Dosing 25.1 Est GFR ( Amer) 23.7 Est GFR (Non-Af Amer) 20.4 BUN/Creatinine Ratio 28.1 H Glucose 100 H POC Glucose 154 H 197 H Estimat Average Glucose Hemoglobin A1c Calcium 8.4 L Troponin I 0.078 H* 11/06/18 11/06/18 11/06/18 05:56 07:29 11:22 Sodium Potassium Chloride Carbon Dioxide Anion Gap BUN Creatinine Est Cr Clr Drug Dosing Est GFR ( Amer) Est GFR (Non-Af Amer) BUN/Creatinine Ratio Glucose POC Glucose 100 H 239 H Estimat Average Glucose 148 Hemoglobin A1c 6.8 H Calcium Troponin I Medications Administered Current Inpatient Medications Acetaminophen (Tylenol) 650 mg PO Q4H PRN PRN Reason: Pain or Fever Stop: 12/05/18 13:02 Albuterol (Combivent Respimat) 1 puffs INH Q6 [facility] Stop: 12/05/18 13:29 Last Admin: 11/06/18 12:12 Dose: 1 puffs Allopurinol (Zyloprim) 100 mg PO BID [facility] Stop: 12/05/18 20:59 Last Admin: 11/06/18 12:09 Dose: 100 mg Amiodarone HCl (Cordarone) 200 mg PO QDL [facility] Stop: 12/05/18 13:29 Last Admin: 11/06/18 12:10 Dose: 200 mg Apixaban (Eliquis) 5 mg PO BID [facility] Stop: 12/05/18 20:59 Last Admin: 11/06/18 08:19 Dose: 5 mg Aspirin (Ecotrin Ectab) 81 mg PO QAM [facility] Stop: 12/06/18 08:59 Last Admin: 11/06/18 08:19 Dose: 81 mg Calcitriol (Racaltrol) 0.5 mcg PO QAM [facility] Stop: 12/06/18 08:59 Last Admin: 11/06/18 08:19 Dose: 0.5 mcg Dextrose (Dextrose 50%) 25 - 50 ml IV UD PRN; Protocol PRN Reason: Hypoglycemia Protocol Stop: 12/05/18 13:02 Docusate Sodium (Colace) 100 mg PO BID [facility] Stop: 12/05/18 20:59 Last Admin: 11/06/18 08:21 Dose: 100 mg Fluocinonide (Lidex 0.5%) 1 appln EXT DAILY [facility] Stop: 12/06/18 08:59 Last Admin: 11/06/18 08:19 Dose: 1 appln Glucagon (Glucagen) 1 mg SQ UD PRN; Protocol PRN Reason: Hypoglycemia Protocol Stop: 12/05/18 13:02 Glucose (Glucose 40%) 15 - 30 gm PO UD PRN; Protocol PRN Reason: Hypoglycemia Protocol Stop: 12/05/18 13:02 Glucose (Dex4 Glucose) 4 - 8 tabs PO UD PRN; Protocol PRN Reason: Hypoglycemia Protocol Stop: 12/05/18 13:02 Dobutamine HCl/Dextrose (Dobutamine / D5w) 500 mg in 250 mls @ 15.255 mls/hr IV .[id number] [facility]; Protocol Stop: 12/05/18 13:29 Last Admin: 11/06/18 06:41 Dose: 5.01 mcg/kg/min, 15.3 mls/hr Bumetanide 3 mg/ Syringe 12 mls @ 4 mls/min IV Q8 [facility] Stop: 12/05/18 13:59 Last Admin: 11/06/18 14:57 Dose: 4 mls/min Insulin Aspart (Novolog Flexpen) 0 units SC ACHS [facility] Stop: 12/05/18 13:29 Last Admin: 11/06/18 12:11 Dose: 12 units Insulin Glargine (Lantus Solostar Pen) 35 units SQ HS [facility] Stop: 12/05/18 20:59 Last Admin: 11/05/18 21:09 Dose: 35 units Levothyroxine Sodium (Synthroid) 75 mcg PO DAILYBB [facility] Stop: 12/06/18 06:29 Last Admin: 11/06/18 08:20 Dose: 75 mcg Lidocaine (Lidoderm 5%) 1 patch TD QAM [facility] Stop: 12/05/18 13:29 Last Admin: 11/06/18 08:20 Dose: 1 patch Miscellaneous (Carbohydrates For Hypoglycemia) 15 - 30 gm PO UD PRN PRN Reason: Hypoglycemia Treatment Stop: 12/05/18 13:02 Miscellaneous (Remove Lidoderm Patch) 1 ea N/A DAILY@2100 [facility] Stop: 12/05/18 20:59 Last Admin: 11/05/18 21:06 Dose: 1 ea Morphine Sulfate (Morphine Sulfate) 2 mg IV Q30M PRN PRN Reason: Chest Pain Stop: 11/19/18 13:02 Last Admin: 11/06/18 08:16 Dose: 2 mg Nitroglycerin (Nitrostat) 0.4 mg SL UD PRN PRN Reason: Chest Pain Stop: 12/05/18 13:02 Ondansetron HCl (Zofran) 4 mg IV Q6H PRN PRN Reason: Nausea Stop: 12/05/18 13:02 Oxycodone HCl (Roxicodone Immediate Rel) 10 mg PO Q8 PRN PRN Reason: Pain Stop: 11/19/18 13:02 Last Admin: 11/05/18 21:50 Dose: 10 mg Polyethylene Glycol (Miralax Powder Packet) 17 gm PO DAILY [facility] Stop: 12/06/18 08:59 Last Admin: 11/06/18 08:20 Dose: 17 gm Polyethylene Glycol (Miralax Powder Packet) 17 gm PO DAILY PRN PRN Reason: Constipation Stop: 12/05/18 22:04 Last Admin: 11/05/18 22:21 Dose: 17 gm Potassium Chloride (Klor-Con M20) 40 meq PO BID [facility] Stop: 12/05/18 20:59 Last Admin: 11/06/18 08:19 Dose: 40 meq Simvastatin (Zocor) 40 mg PO HS [facility] Stop: 12/05/18 20:59 Last Admin: 11/05/18 21:04 Dose: 40 mg _ (1) Atrial fibrillation Atrial fibrillation type: permanent Qualified Code(s): I48.2 - Chronic atrial fibrillation
[2018-11-06] MEDS: SIMVASTATIN 40 MG TAB PO SCH (20:17)
[2018-11-06] MEDS: INSULIN GLARGINE SOLOSTAR 100 UNITS/ML 3 ML PEN SQ SCH (20:18)
[2018-11-06] MEDS: ACETAMINOPHEN 325 MG TAB PO PRN (20:20)
[2018-11-06] MEDS: OXYCODONE HCL IR 5 MG TAB (IMMEDIATE RELEASE) PO PRN (20:50)
[2018-11-06] MEDS: POLYETHYLENE (MIRALAX) 17 GM PACK PO PRN (22:03)
[2018-11-06] MEDS ORDERED: Nursing to Pharmacy Communication ONE (22:25)
[2018-11-07] MEDS: OXYCODONE HCL IR 5 MG TAB (IMMEDIATE RELEASE) PO PRN ×2 (05:05→21:49)
[2018-11-07] MEDS: LEVOTHYROXINE SODIUM 75 MCG TABLET PO SCH (05:05)
[2018-11-07] MEDS: IPRATROPIUM BROMIDE/ALBUTEROL respimat INH INH SCH ×4 (05:06→23:54)
[2018-11-07] MEDS: BUMETANIDE 3 MG in SYRINGE 0 ML IV SCH ×3 (05:07→21:31)
[2018-11-07] MEDS: MoRPHine SULFATE 2 MG/ML CARP IV PRN ×2 (05:52→13:02)
[2018-11-07 06:07] LABS: Hematocrit (blood only) 46.1 % (42-52); Hemoglobin 14.4 g/dL (14.0-18.0); Mean Corpuscular Hgb Conc 31.2 g/dL (32-36); Mean Corpuscular Volume 93.5 fL (80-100); Mean Platelet Volume 9.6 fL (7.4-10.4); Platelet Count 116 K/uL (130-400); RDW Coefficient of Variation 16.5 % (11.5-14.5); RDW Standard Deviation 56.4 fL (36.4-46.3); Red Blood Count 4.93 M/uL (4.7-6.1); White Blood Count 6.46 K/uL (4.8-10.8)
[2018-11-07 06:45] LABS: Calcium 8.3 mg/dl (8.5-10.1); Creatinine Clr Calc Pharmacy 24.7 ml/min; Est GFR (African American) 23.2; Potassium 3.8 mmol/L (3.5-5.1)
[2018-11-07] MEDS: INSULIN ASPART 100 UNITS/ML 3 ML PEN SC SCH ×4 (08:01→21:32)
[2018-11-07] MEDS: CALCITRIOL 0.25 MCG CAPSULE PO SCH (08:03)
[2018-11-07] MEDS: APIXABAN 5 MG TABLET PO SCH ×2 (08:03→21:30)
[2018-11-07] MEDS: ASPIRIN 81 MG ECTAB PO SCH (08:03)
[2018-11-07] MEDS: POTASSIUM CHLORIDE 20 MEQ TABCR PO SCH ×2 (08:03→21:30)
[2018-11-07] MEDS: FLUOCINONIDE 0.05% CR 15 GM TUBE EXT SCH (08:04)
[2018-11-07] MEDS: ALLOPURINOL 100 MG TAB PO SCH ×2 (08:04→21:29)
[2018-11-07] MEDS: DOCUSATE SODIUM 100 MG CAP PO SCH ×2 (08:04→21:30)
[2018-11-07] MEDS: POLYETHYLENE (MIRALAX) 17 GM PACK PO SCH (08:07)
[2018-11-07] MEDS: AMIODARONE 200 MG TAB PO SCH (11:52)
[2018-11-07] MEDS ORDERED: BISACODYL 10 MG SUPP PR PRN (12:25)
[2018-11-07] MEDS: ACETAMINOPHEN 325 MG TAB PO PRN ×2 (12:38→20:13)
[2018-11-07 12:58] LABS: Appearance Urine Clear (Clear); Bilirubin Urine Negative (Negative); Color Urine Yellow; Glucose Urine UA Negative (Negative); Ketones Urine Negative (Negative); Leukocyte Esterase Urine Negative (Negative); Nitrite Urine Negative (Negative); Protein Urine Negative (Negative); Specific Gravity Urine 1.013 (1.000-1.030); Urobilinogen Urine Negative (Negative); pH Urine 7.5 (4.5-7.5)
[2018-11-07] MEDS: DOBUTamine / D5W 500 MG/250 ML BAG IV SCH (14:54)
--- NOTE | 2018-11-07 15:44 | Hospitalist Progress Note ---
Date of Service November 07, 2018 Assessment & Plan (1) Chronic combined systolic and diastolic CHF (congestive heart failure): acute exacerbation of chronic heart failure diuresing with Bumex and Dobutamine unsure of how long this will take, weight is up by about 20 lbs from baseline has significant peripheral edema follow weights closely, patient instructed to use urinal every time for accurate measurement of UO Cr holding at 2.9, continue to monitor cardiology following (2) CKD (chronic kidney disease), stage III: Cr stable at 2.9, was 2.8 yesterday likely better renal perfusion with the dobutamine continue to monitor, electrolytes stable (3) Atrial fibrillation: continue Amiodarone and Eliquis patient is paced on the monitor (4) Angina at rest: due to history of CAD minimal rise in troponin, not significant cannot interpret EKG due to paced rhythm continues to have intermittent pain today could be a result of Dobutamine putting some strain on heart will try to give him relief with Ranexa while in the hospital do not plan on using it after discharge (5) Hypothyroidism: Maintains on Synthroid (6) Diabetes: diabetic diet basal bolus insulin monitor for hypoglycemia (7) Acute back pain: Patient's acute back pain is more down his right sacroiliac joint. He did have a CT scan of his abdomen to rule out renal stones pain better today, not complaining at all (8) DVT prophylaxis: Eliquis therapy serves as his DVT prevention Plan:continue dobutamine and Bumex TID until he reaches a dry weight monitor BMP daily discussed with patient and family that this is temporary, cannot given dobutamine outside of the hospital if these measures fail to improve volume overload or if Cr climbs significantly, would consult palliative care Subjective patient c/o some chest pain intermittently, left sided, goes away with Morphine discussed with he and family that the pain could be some angina, strain from being on Dobutamine explained that troponin was negative will try some Ranexa discussed with pharmacy, Ranexa and Zocor can cause rhabdomyolysis do not plan on using Ranexa termite helper, will hold Zocor for now discussed importance of using urinal so we have accurate output per RN, he has been voiding in toilet his weight is down by a Kg since admission, still with a lot of swelling in legs reviewed labs, Cr holding at 2.9, within his baseline Review of Systems All systems reviewed & are unremarkable except as noted in HPI & below Respiratory: + dyspnea on exertion Cardiovascular: + chest pain, + dyspnea, + dyspnea on exertion, + orthopnea and + edema Physical Exam 2 Vital Signs (Past 24 Hours): Last Vital Signs Temp 36.6 C 11/07/18 15:25 Pulse 70 11/07/18 15:25 Resp 18 11/07/18 15:25 BP 110/74 11/07/18 15:25 Pulse Ox 92 11/07/18 15:25 Constitutional: WD/WN, vitals as above Eyes: PERRL, conjunctivae normal, anicteric sclerae ENMT: external ear and nose normal, oropharynx normal Neck: trachea midline, no thyromegaly Respiratory: normal respiratory effort; no respiratory distress Auscultation: + diminished lung sounds and + rales (bases) Cardiovascular: Rate/Rhythm: regular rate Heart Sounds: normal S1 and normal S2; no murmur Vessels: normal peripheral pulses; no JVD Extremities : + pedal edema Gastrointestinal (Abdomen): normal bowel sounds, soft, nontender, no hepatosplenomegaly Musculoskeletal: no cyanosis or clubbing, extremities motor strength 5/5 Skin: no rashes, warm and dry Neurologic: patellar DTR's 2+ bilat, sensation intact and PERRL, EOMI, accommodation nl, no face palsy, no dysarthria Psychiatric: A+Ox3, euthymic affect Lymphatic: no cervical or axillary lymphadenopathy Results & Data Laboratory Results Laboratory Results - last 24 hr 11/06/18 11/06/18 11/07/18 16:07 20:10 05:35 WBC RBC Hgb Hct MCV MCH MCHC RDW Std Deviation RDW Coeff of [place] Plt Count MPV Sodium Potassium Chloride Carbon Dioxide Anion Gap BUN Creatinine Est Cr Clr Drug Dosing Est GFR ( Amer) Est GFR (Non-Af Amer) BUN/Creatinine Ratio Glucose POC Glucose 141 H 132 H 125 H Calcium Urine Color Urine Appearance Urine pH Ur Specific Sellers Urine Protein Urine Glucose (UA) Urine Ketones Urine Blood Urine Nitrite Urine Bilirubin Urine Urobilinogen Ur Leukocyte Esterase 11/07/18 11/07/18 11/07/18 05:43 05:43 07:20 WBC 6.46 RBC 4.93 Hgb 14.4 Hct 46.1 MCV 93.5 MCH 29.2 MCHC 31.2 L RDW Std Deviation 56.4 H RDW Coeff of Ebenezer 16.5 H Plt Count 116 L MPV 9.6 Sodium 135 L Potassium 3.8 Chloride 97 L Carbon Dioxide 34 H Anion Gap 4.0 BUN 73 H Creatinine 2.91 H Est Cr Clr Drug Dosing 24.7 Est GFR ( Amer) 23.2 Est GFR (Non-Af Amer) 20.0 BUN/Creatinine Ratio 25.0 H Glucose 125 H POC Glucose 157 H Calcium 8.3 L Urine Color Urine Appearance Urine pH Ur Specific Sellers Urine Protein Urine Glucose (UA) Urine Ketones Urine Blood Urine Nitrite Urine Bilirubin Urine Urobilinogen Ur Leukocyte Esterase 11/07/18 11/07/18 11:50 12:45 WBC RBC Hgb Hct MCV MCH MCHC RDW Std Deviation RDW Coeff of [place]ene[place] Plt Count MPV Sodium Potassium Chloride Carbon Dioxide Anion Gap BUN Creatinine Est Cr Clr Drug Dosing Est GFR ( Amer) Est GFR (Non-Af Amer) BUN/Creatinine Ratio Glucose POC Glucose 154 H Calcium Urine Color Yellow Urine Appearance Clear Urine pH 7.5 Ur Specific Sellers 1.013 Urine Protein Negative Urine Glucose (UA) Negative Urine Ketones Negative Urine Blood Negative Urine Nitrite Negative Urine Bilirubin Negative Urine Urobilinogen Negative Ur Leukocyte Esterase Negative Medications Administered Current Inpatient Medications Acetaminophen (Tylenol) 650 mg PO Q4H PRN PRN Reason: Pain or Fever Stop: 12/05/18 13:02 Last Admin: 11/07/18 12:38 Dose: 650 mg Albuterol (Combivent Respimat) 1 puffs INH Q6 [facility] Stop: 12/05/18 13:29 Last Admin: 11/07/18 11:52 Dose: 1 puffs Allopurinol (Zyloprim) 100 mg PO BID [facility] Stop: 12/05/18 20:59 Last Admin: 11/07/18 08:04 Dose: 100 mg Amiodarone HCl (Cordarone) 200 mg PO QDL [facility] Stop: 12/05/18 13:29 Last Admin: 11/07/18 11:52 Dose: 200 mg Apixaban (Eliquis) 5 mg PO BID [facility] Stop: 12/05/18 20:59 Last Admin: 11/07/18 08:03 Dose: 5 mg Aspirin (Ecotrin Ectab) 81 mg PO QAM [facility] Stop: 12/06/18 08:59 Last Admin: 11/07/18 08:03 Dose: 81 mg Bisacodyl (Dulcolax) 10 mg LA DAILY PRN PRN Reason: Constipation Stop: 12/07/18 12:24 Calcitriol (Racaltrol) 0.5 mcg PO QAM [facility] Stop: 12/06/18 08:59 Last Admin: 11/07/18 08:03 Dose: 0.5 mcg Dextrose (Dextrose 50%) 25 - 50 ml IV UD PRN; Protocol PRN Reason: Hypoglycemia Protocol Stop: 12/05/18 13:02 Docusate Sodium (Colace) 100 mg PO BID [facility] Stop: 12/05/18 20:59 Last Admin: 11/07/18 08:04 Dose: 100 mg Fluocinonide (Lidex 0.5%) 1 appln EXT DAILY [facility] Stop: 12/06/18 08:59 Last Admin: 11/07/18 08:04 Dose: 1 appln Glucagon (Glucagen) 1 mg SQ UD PRN; Protocol PRN Reason: Hypoglycemia Protocol Stop: 12/05/18 13:02 Glucose (Glucose 40%) 15 - 30 gm PO UD PRN; Protocol PRN Reason: Hypoglycemia Protocol Stop: 12/05/18 13:02 Glucose (Dex4 Glucose) 4 - 8 tabs PO UD PRN; Protocol PRN Reason: Hypoglycemia Protocol Stop: 12/05/18 13:02 Dobutamine HCl/Dextrose (Dobutamine / D5w) 500 mg in 250 mls @ 15.255 mls/hr IV .[id number] [facility]; Protocol Stop: 12/05/18 13:29 Last Admin: 11/07/18 14:54 Dose: 5.01 mcg/kg/min, 15.3 mls/hr Bumetanide 3 mg/ Syringe 12 mls @ 4 mls/min IV Q8 [facility] Stop: 12/05/18 13:59 Last Admin: 11/07/18 12:41 Dose: 4 mls/min Insulin Aspart (Novolog Flexpen) 0 units SC ACHS [facility] Stop: 12/05/18 13:29 Last Admin: 11/07/18 12:40 Dose: 5 units Insulin Glargine (Lantus Solostar Pen) 35 units SQ HS [facility] Stop: 12/05/18 20:59 Last Admin: 11/06/18 20:18 Dose: 35 units Levothyroxine Sodium (Synthroid) 75 mcg PO DAILYBB [facility] Stop: 12/06/18 06:29 Last Admin: 11/07/18 05:05 Dose: 75 mcg Miscellaneous (Carbohydrates For Hypoglycemia) 15 - 30 gm PO UD PRN PRN Reason: Hypoglycemia Treatment Stop: 12/05/18 13:02 Miscellaneous (Remove Lidoderm Patch) 1 ea N/A DAILY@0900 [facility] Stop: 12/07/18 08:59 Last Admin: 11/07/18 10:30 Dose: Not Given Morphine Sulfate (Morphine Sulfate) 2 mg IV Q30M PRN PRN Reason: Chest Pain Stop: 11/19/18 13:02 Last Admin: 11/07/18 13:02 Dose: 2 mg Nitroglycerin (Nitrostat) 0.4 mg SL UD PRN PRN Reason: Chest Pain Stop: 12/05/18 13:02 Ondansetron HCl (Zofran) 4 mg IV Q6H PRN PRN Reason: Nausea Stop: 12/05/18 13:02 Oxycodone HCl (Roxicodone Immediate Rel) 10 mg PO Q8 PRN PRN Reason: Pain Stop: 11/19/18 13:02 Last Admin: 11/07/18 05:05 Dose: 10 mg Polyethylene Glycol (Miralax Powder Packet) 17 gm PO DAILY [facility] Stop: 12/06/18 08:59 Last Admin: 11/07/18 08:07 Dose: 17 gm Polyethylene Glycol (Miralax Powder Packet) 17 gm PO DAILY PRN PRN Reason: Constipation Stop: 12/05/18 22:04 Last Admin: 11/06/18 22:03 Dose: 17 gm Potassium Chloride (Klor-Con M20) 40 meq PO BID [facility] Stop: 12/05/18 20:59 Last Admin: 11/07/18 08:03 Dose: 40 meq Ranolazine (Ranexa) 500 mg PO Q12 [facility] Stop: 12/07/18 20:59 Simvastatin (Zocor) 40 mg PO HS [facility] Stop: 12/05/18 20:59 Last Admin: 11/06/18 20:17 Dose: 40 mg _ (1) Atrial fibrillation Atrial fibrillation type: permanent Qualified Code(s): I48.2 - Chronic atrial fibrillation
[2018-11-07] MEDS: RANOLAZINE 500 MG ER TAB PO SCH (21:29)
[2018-11-07] MEDS: INSULIN GLARGINE SOLOSTAR 100 UNITS/ML 3 ML PEN SQ SCH (21:31)
[2018-11-08] MEDS: IPRATROPIUM BROMIDE/ALBUTEROL respimat INH INH SCH ×4 (05:47→23:23)
[2018-11-08] MEDS: BUMETANIDE 3 MG in SYRINGE 0 ML IV SCH ×3 (05:47→21:44)
[2018-11-08] MEDS: LEVOTHYROXINE SODIUM 75 MCG TABLET PO SCH (05:48)
[2018-11-08 06:55] LABS: BUN Creatinine Ratio 23.7 (10-20); Calcium 8.4 mg/dl (8.5-10.1); Creatinine Clr Calc Pharmacy 24.6 ml/min; Est GFR (Non-African American) 19.8; Potassium 4.8 mmol/L (3.5-5.1)
[2018-11-08] MEDS: DOBUTamine / D5W 500 MG/250 ML BAG IV SCH ×2 (07:47→21:44)
[2018-11-08] MEDS: INSULIN ASPART 100 UNITS/ML 3 ML PEN SC SCH ×4 (07:52→21:48)
[2018-11-08] MEDS: ASPIRIN 81 MG ECTAB PO SCH (07:54)
[2018-11-08] MEDS: DOCUSATE SODIUM 100 MG CAP PO SCH ×2 (07:54→21:43)
[2018-11-08] MEDS: APIXABAN 5 MG TABLET PO SCH ×2 (07:55→21:42)
[2018-11-08] MEDS: FLUOCINONIDE 0.05% CR 15 GM TUBE EXT SCH (07:56)
[2018-11-08] MEDS: POLYETHYLENE (MIRALAX) 17 GM PACK PO SCH (07:57)
[2018-11-08] MEDS: CALCITRIOL 0.25 MCG CAPSULE PO SCH (07:58)
[2018-11-08] MEDS: ALLOPURINOL 100 MG TAB PO SCH ×2 (07:58→21:43)
[2018-11-08] MEDS: RANOLAZINE 500 MG ER TAB PO SCH ×2 (08:00→21:42)
[2018-11-08] MEDS: POTASSIUM CHLORIDE 20 MEQ TABCR PO SCH (09:50)
[2018-11-08] MEDS: AMIODARONE 200 MG TAB PO SCH (12:08)
[2018-11-08] MEDS: OXYCODONE HCL IR 5 MG TAB (IMMEDIATE RELEASE) PO PRN (13:45)
--- NOTE | 2018-11-08 14:24 | Cardiology Progress Note ---
Date of Service November 08, 2018 Assessment & Plan (1) CHF exacerbation: The patient was admitted with acute on chronic systolic CHF. Suspect this is secondary to the patient's noncompliance with sodium restrictions and his medications. Would continue intravenous Bumex and dobutamine for another 24 -48 hours. (2) Ischemic cardiomyopathy: Most recent echocardiogram performed in August 2017 noted an ejection fraction of 25-30% with multiple wall motion abnormalities. He also had evidence of moderate aortic stenosis. (3) CAD (coronary artery disease), [place] coronary artery: The patient has a history of LAD stenting x2. Apparently had several episodes of angina over the weekend. Currently is stable. (4) Atrial fibrillation: The patient typically takes Eliquis 5 mg twice daily for long-term anticoagulant. His heart rate is adequately controlled. Subjective The patient is resting comfortably in bed without complaints of chest pain or dyspnea. His is at the bedside. Physical Exam 2 Vital Signs (Past 24 Hours): Last Vital Signs Temp 36.6 C 11/08/18 11:38 Pulse 70 11/08/18 11:38 Resp 24 11/08/18 11:38 BP 91/54 L 11/08/18 11:38 Pulse Ox 98 11/08/18 11:38 Physical Exam: In general is a well-developed well-nourished male seated at the bedside without complaints. HEENT exam is negative. Neck is supple with full carotid upstrokes. No carotid bruits. Jugular venous pressure elevated to the angle of the jaw. No thyromegaly. Cardiovascular exam reveals a regular rhythm with distant heart sounds. No obvious murmurs. No S3. Lungs note decrease breath sounds and rales at the bases bilaterally. Abdomen is obese without bruits. Chest reveals a palpable device in the left subclavicular region. Extremities reveal intact radial artery pulses bilaterally. 2+ pretibial edema is noted. Results & Data Laboratory Results Laboratory Results - last 24 hr 11/07/18 11/07/18 11/08/18 16:00 20:14 05:53 Sodium 134 L Potassium 4.8 D Chloride 96 L Carbon Dioxide 29 Anion Gap 9.0 BUN 69 H Creatinine 2.93 H Est Cr Clr Drug Dosing 24.6 Est GFR ( Amer) 23.0 Est GFR (Non-Af Amer) 19.8 BUN/Creatinine Ratio 23.7 H Glucose 111 H POC Glucose 182 H 190 H Calcium 8.4 L 11/08/18 11/08/18 07:26 11:22 Sodium Potassium Chloride Carbon Dioxide Anion Gap BUN Creatinine Est Cr Clr Drug Dosing Est GFR ( Amer) Est GFR (Non-Af Amer) BUN/Creatinine Ratio Glucose POC Glucose 130 H 193 H Calcium Diagnostic Findings control system manager notes appropriate pacing. _ (1) CHF exacerbation Heart failure type: systolic Qualified Code(s): I50.23 - Acute on chronic systolic (congestive) heart failure (2) Atrial fibrillation Atrial fibrillation type: permanent Qualified Code(s): I48.2 - Chronic atrial fibrillation
[2018-11-08] MEDS: ACETAMINOPHEN 325 MG TAB PO PRN (14:53)
--- NOTE | 2018-11-08 17:09 | XRay Report ---
XR chest 1V portable CLINICAL HISTORY: sob dyspnea COMPARISON STUDY: 11/05/2017 FINDINGS: Moderate cardiac megaly. Prominent pulmonary vasculature. This is increased from the prior study. IMPRESSION: Progressive components of pulmonary edema. The above report was generated using voice recognition software. It may contain grammatical, syntax or spelling errors. Electronically signed by: Harjeet Tellez M.D. 11/08/2018 5:08 PM
[2018-11-08] MEDS: INSULIN GLARGINE SOLOSTAR 100 UNITS/ML 3 ML PEN SQ SCH (21:47)
[2018-11-09] MEDS: OXYCODONE HCL IR 5 MG TAB (IMMEDIATE RELEASE) PO PRN ×2 (01:44→18:03)
[2018-11-09] MEDS ORDERED: hydrOXYzine HCl 10 MG TAB PO PRN (01:46)
[2018-11-09] MEDS: LEVOTHYROXINE SODIUM 75 MCG TABLET PO SCH (05:31)
[2018-11-09] MEDS: BUMETANIDE 3 MG in SYRINGE 0 ML IV SCH ×3 (05:32→20:54)
[2018-11-09] MEDS: IPRATROPIUM BROMIDE/ALBUTEROL respimat INH INH SCH ×4 (05:32→23:58)
[2018-11-09 06:36] LABS: Hematocrit (blood only) 48.2 % (42-52); Hemoglobin 15.3 g/dL (14.0-18.0); Mean Corpuscular Hgb Conc 31.7 g/dL (32-36); Mean Corpuscular Volume 93.1 fL (80-100); RDW Standard Deviation 56.2 fL (36.4-46.3); Red Blood Count 5.18 M/uL (4.7-6.1)
[2018-11-09 07:04] LABS: Mean Platelet Volume 10.2 fL (7.4-10.4); Platelet Count 91 K/uL (130-400)
[2018-11-09 07:07] LABS: BUN Creatinine Ratio 22.6 (10-20); Calcium 8.5 mg/dl (8.5-10.1); Creatinine Clr Calc Pharmacy 20.5 ml/min; Est GFR (African American) 18.5; Potassium 5.4 mmol/L (3.5-5.1)
--- NOTE | 2018-11-09 07:30 | Hospitalist Progress Note ---
Date of Service November 08, 2018 Assessment & Plan (1) Chronic combined systolic and diastolic CHF (congestive heart failure): acute exacerbation of chronic heart failure Patient has been on Bumex and dobutamine. Patient however has not had significant urine output and weight has not decreased as much as had hoped. Repeated chest xray which does not show singificant improveemnt. will continue with above meds. Recheck creatinine. unsure of how long this will take, weight is up by about 20 lbs from baseline has significant peripheral edema Placed urine [place]. follow weights closely, pa Cr holding at 2.93, continue to monitor cardiology following May require nephro consult for dialysis if he does not improve. (2) CKD (chronic kidney disease), stage III: Cr stable at 2.9, was 2.8 yesterday likely better renal perfusion with the dobutamine continue to monitor, electrolytes stable (3) Atrial fibrillation: continue Amiodarone and Eliquis patient is paced on the monitor (4) Angina at rest: due to history of CAD minimal rise in troponin, not significant cannot interpret EKG due to paced rhythm continues to have intermittent pain today could be a result of Dobutamine putting some strain on heart Ranexa was tried. do not plan on using it after discharge (5) Hypothyroidism: Maintains on Synthroid (6) Diabetes: diabetic diet basal bolus insulin monitor for hypoglycemia (7) Acute back pain: Patient's acute back pain is more down his right sacroiliac joint. He did have a CT scan of his abdomen to rule out renal stones pain better today, not complaining at all (8) Acute renal failure: Patient had creat at 3.3 on admission. This has improved, will monitor. (9) DVT prophylaxis: Eliquis therapy serves as his DVT prevention Plan:continue dobutamine and Bumex TID until he reaches a dry weight monitor BMP daily discussed with patient and family that this is temporary, cannot given dobutamine outside of the hospital if these measures fail to improve volume overload or if Cr climbs significantly, would consult palliative care Spent 35 minutes in management of patient. Subjective 78 yo male is a poor historian as he does not speak [place] well. He is a [place] speaker. He reports that he has continued to be very short of breath today, but when questioned further, he states that he is feeling mildly better than he did yesterday. He states thoough that he has not been able to urinate much today. Spoke with nurse, he pbelieves patient is anxious as he is able to rest, and has been intermittenlty off oxygen. However, he becomes SOB once family is in the room. Respiratory: + dyspnea on exertion Cardiovascular: + chest pain, + dyspnea, + dyspnea on exertion, + orthopnea and + edema Physical Exam 2 Vital Signs (Past 24 Hours): Last Vital Signs Temp 36.9 C 11/08/18 15:32 Pulse 82 11/08/18 15:32 Resp 23 11/08/18 15:32 BP 113/72 L 11/08/18 15:32 Pulse Ox 92 11/08/18 15:32 Physical Exam: Constitutional: WD/WN, vitals as above Eyes: PERRL, conjunctivae normal, anicteric sclerae ENMT: external ear and nose normal, oropharynx normal Neck: trachea midline, no thyromegaly Respiratory: normal respiratory effort; no respiratory distress, appears tachypnic. Auscultation: + diminished lung sounds and + rales (bases) Cardiovascular: Rate/Rhythm: regular rate Heart Sounds: normal S1 and normal S2; no murmur Vessels: normal peripheral pulses; no JVD Extremities: + pedal edema Gastrointestinal (Abdomen): normal bowel sounds, soft, nontender, no hepatosplenomegaly Musculoskeletal: no cyanosis or clubbing, extremities motor strength 5/5 Skin: no rashes, warm and dry Neurologic: PERRL, EOMI, accommodation nl, no face palsy, no dysarthria Psychiatric: A+Ox3, euthymic affect Lymphatic: no cervical or axillary lymphadenopathy _ (1) Atrial fibrillation Atrial fibrillation type: permanent Qualified Code(s): I48.2 - Chronic atrial fibrillation
[2018-11-09] MEDS: ALLOPURINOL 100 MG TAB PO SCH ×2 (07:39→20:53)
[2018-11-09] MEDS: CALCITRIOL 0.25 MCG CAPSULE PO SCH (07:39)
[2018-11-09] MEDS: RANOLAZINE 500 MG ER TAB PO SCH ×2 (07:40→20:53)
[2018-11-09] MEDS: INSULIN ASPART 100 UNITS/ML 3 ML PEN SC SCH ×4 (07:40→20:54)
[2018-11-09] MEDS: ASPIRIN 81 MG ECTAB PO SCH (07:40)
[2018-11-09] MEDS: DOCUSATE SODIUM 100 MG CAP PO SCH ×2 (07:40→20:53)
[2018-11-09] MEDS: FLUOCINONIDE 0.05% CR 15 GM TUBE EXT SCH (07:41)
[2018-11-09] MEDS: POLYETHYLENE (MIRALAX) 17 GM PACK PO SCH (10:06)
[2018-11-09] MEDS ORDERED: SODIUM CHLORIDE 0.9% 1000ML 1,000 ML IV PRN ×2 (10:24→12:02)
[2018-11-09] MEDS: APIXABAN 5 MG TABLET PO SCH (10:47)
[2018-11-09] MEDS ORDERED: metOLazone 5 MG TABLET PO STA (11:04)
--- NOTE | 2018-11-09 11:38 | Consultation ---
Date of Consultation November 09, 2018 Assessment & Plan (1) Acute renal failure: Pt also seen by Dr Rajput. Planning on permcath insertion in OR later today. Procedue discussed with by Dr Rajput for consent. Present on Admission?: Yes History of Present Illness Attending Physician: Jacques Harrell History of Present Illness 78 yo m with multiple medical problems, admitted with CHF and ARF, seen in consultation today for permcath insertion for HD initation. Pt himself unable to give hx as he is confused d/t ARF. Pt also does not speak latvian, only [place]. His give better information, but also has partial language barrier. Daughter able to give information by phone as well. states pt has not been sleeping, admits edema, cough, SOB and inability to lie flat d/t SOB, also generalized pain. Denies other complaints. Allergies Allergy/AdvReac Type Severity Reaction Status Date / Time No Known Allergies Allergy Verified 11/05/18 10:09 Home Medications Home Medications Medication Instructions Recorded Confirmed Type allopurinol 100 mg PO BID 07/13/18 11/05/18 History amiodarone 200 mg PO QDL 07/13/18 11/05/18 History apixaban [Eliquis] 5 mg PO BID 07/13/18 11/05/18 History aspirin [Aspirin Low Dose] 81 mg PO QAM 07/13/18 11/05/18 History bumetanide 3 mg PO QAM 07/13/18 11/05/18 History calcitriol 0.5 mcg PO QAM 07/13/18 11/05/18 History insulin asp prt-insulin aspart 20 - 25 unit SUBCUT DAILY 07/13/18 11/05/18 History [Novolog Mix 70-30FlexPen U-100] insulin glargine [Basaglar KwikPen 35 unit SUBCUT HS 07/13/18 11/05/18 History U-100 Insulin] ipratropium-albuterol [Combivent 1 puff INHALATION Q6H 07/13/18 11/05/18 History Respimat] levothyroxine 75 mcg PO QAM 07/13/18 11/05/18 History potassium chloride 40 meq PO BID 07/13/18 11/05/18 History simvastatin 40 mg PO HS 07/13/18 11/05/18 History zolpidem 1.25 mg PO DIRECTED PRN 07/13/18 11/05/18 History polyethylene glycol 3350 [Miralax] 17 g PO DAILY #30 ea 07/15/18 11/05/18 Rx flaxseed oil 1,000 mg PO TID 10/05/18 11/05/18 History fluocinonide 1 appln TOP DAILY #60 gm 10/05/18 11/05/18 Rx metolazone 1 tab PO 2XWK 10/05/18 11/05/18 History nitroglycerin 1 tab SUBLINGUAL DAILY PRN 10/05/18 11/05/18 History bumetanide 2 mg PO PM 11/05/18 11/05/18 History bumetanide 2 mg PO UD 11/05/18 11/05/18 History docusate sodium [Colace] 100 mg PO BID 11/05/18 11/05/18 History potassium chloride 20 meq PO UD 11/05/18 11/05/18 History Patient History Medical History Atrial fibrillation (Chronic) Hypothyroidism HLD (hyperlipidemia) (Chronic) Aortic stenosis (Chronic) GERD (gastroesophageal reflux disease) (Chronic) Chronic combined systolic and diastolic CHF (congestive heart failure) (Chronic) CKD (chronic kidney disease), stage III (Chronic) Ischemic cardiomyopathy (Chronic) Pulmonary hypertension (Chronic) Arthritis (Chronic) Surgical History S/P cardiac pacemaker procedure Social History marital status: Current Living Situation: Spouse Other Information That Helps Us Care for You: No Feels Safe at Home: Yes Safety Concerns: Feels Safe At This Time Smoking Status: Never smoker Do You Dip or Chew Tobacco: No Second Hand Exposure: No Tobacco Cessation Education Requested by Patient: No Hx Alcohol Use: No Hx Substance Use: No Beliefs That Will Affect Care: None Communication Ability: language Review of Systems Admits as in HPI, otherwise unable to obtain d/t current confusion. Physical Exam 2 Vital Signs (Past 24 Hours): Last Vital Signs Temp 36.8 C 11/09/18 07:12 Pulse 72 11/09/18 04:00 Resp 18 11/09/18 07:12 BP 93/59 L 11/09/18 07:12 Pulse Ox 95 11/09/18 07:12 Constitutional: WD/WN, vitals as above well developed, well nourished, + ill appearing, + morbidly obese, + disheveled and + in distress; not frail appearing, + not well groomed, + uncooperative and + uncomfortable Eyes: PERRL, conjunctivae normal, anicteric sclerae EOM intact bilaterally ENMT: external ear and nose normal, oropharynx normal Ears: no hearing impairment Nose: no nasal discharge Throat: no posterior oropharynx abnormality Neck: trachea midline, no thyromegaly no tracheal deviation, no neck crepitus and neck nontender Respiratory: + cough and able to speak in complete sentences; does not use accessory muscles, not tachypneic and no audible wheezes Auscultation: + diminished lung sounds and + crackles; no rhonchi and no wheezes Cardiovascular: Rate/Rhythm: regular rate and regular rhythm Heart Sounds: no gallop and no murmur Vessels: normal peripheral pulses, femoral pulses present, brachial pulses present and radial pulses present; no carotid bruit, no femoral bruit, + posterior tibial pulses abnormal (nonpalpable) and + dorsalis pedis pulses abnormal (nonpalpable) Extremities: normal capillary refill, + pedal edema and + edema Chest (Breasts): Chest: normal inspection of chest Gastrointestinal (Abdomen): normal bowel sounds, soft, nontender, no hepatosplenomegaly Inspection/Auscultation: abdomen normal to inspection, + abdomen distended, normal bowel sounds and + abdominal edema Percussion/ Palpation: abdomen soft; abdomen nontender, no guarding, abdomen not rigid and no abdominal mass Musculoskeletal: no cyanosis or clubbing, extremities motor strength 5/5 Head/Neck/Chest: normocephalic, head atraumatic and neck supple Extremities: extremities normal to inspection and + chronic stasis changes; full ROM of extremities and + abnormal strength Skin: no rashes, warm and dry normal turgor; turgor not decreased, no rashes, no lesions, no ulcers and no dry skin Trauma: no hematoma and no puncture Neurologic: moves all extremities and awake; no focal motor deficits and not confused Speech / Cognition: no expressive aphasia and no receptive aphasia Motor/Sensory: no tremor and no sensory deficit Cranial Nerves: EOM intact bilaterally and normal facial strength Psychiatric: Orientation: alert; + uncooperative Apperance: appropriately dressed, appropriately groomed and appeared stated age Affect: euthymic affect and + anxious affect Cognition: attention grossly intact Lymphatic: no lymphedema
[2018-11-09] MEDS ORDERED: BUMETANIDE 4 MG in SYRINGE 0 ML IV ONE (11:40)
--- NOTE | 2018-11-09 11:41 | History & Physical Bridge Note ---
Date of Service November 09, 2018 History & Physical Bridge Note Patient is for placement of a permcath today due to CHF not responding to diuretics. I have discussed the risks options and benefits of the procedure with the patient, his and daughter. The patient's and daughter understand the risks options and benefits and agrees to the procedure. I have examined the patient, reviewed the Vascular Consult and in the interval since the performance of the consult I have noted the following changes of clinical significance: no changes noted
[2018-11-09] MEDS ORDERED: CEFAZOLIN 2000MG 2,000 MG/15 ML SYR IV SCH (12:00)
[2018-11-09] MEDS ORDERED: MIDAZOLAM HCL 1 MG/ML 2ML VIAL ONE (12:04)
[2018-11-09] MEDS ORDERED: LIDOCAINE HCL 1% 20 ML VIAL ONE (12:04)
[2018-11-09] MEDS ORDERED: HEPARIN SOD (PORCINE) 5,000 UNITS/ML VIAL ONE (12:04)
[2018-11-09] MEDS ORDERED: CEFAZOLIN 2,000 MG/15 ML IV PUSH IV ONE (12:18)
--- NOTE | 2018-11-09 12:28 | Nephrology Consultation ---
Date of Consultation November 09, 2018 Assessment & Plan (1) Acute renal failure: Mr. Davidson is a 78-year-old gentlemen with chronic kidney disease secondary to cardiorenal syndrome ischemic cardiomyopathy, EF 25-30%, atrial fibrillation on chronic anticoagulation and diabetes without retinopathy or proteinuria admitted to the hospital with acute CHF exacerbation. Developed acute kidney injury and electrolyte abnormality. Started on dobutamine and high dose diuretics and has been on for last 4 5 days without any significant improvement in volume status and renal function continues to decline with persistent electrolyte abnormality. Remain non-oliguric however no significant diuresis. Discussed with patient patient's as well as patient's daughter over telephone that renal function continues to decline in the setting of diuretic resistant volume overload and electrolyte abnormality. Has been on Dobutamine and Bumex 3 mg 3 times a day without any improvement in volume status renal function. Explained that dialysis is indicated to improve volume status and manage electrolyte abnormality. Explained that considering underlying significant ischemic cardiomyopathy and aortic stenosis he may not tolerate dialysis very well. After detailed discussion over telephone patient's daughter on behalf of the patient decided to start on dialysis. --will request vascular surgery to place a tunneled dialysis catheter and plan for 2 hours dialysis this afternoon, try UF as tolerated and plan for dialysis again tomorrow --continue on calcitriol, start on Nephrocaps, check PTH and start on phosphate binder if needed --consult social service to set up outpatient dialysis at [facility] --continue diuretics for now, suggest switching to Bumex 3 mg orally twice a day --decrease Eliquis to 2.5 mg twice a day --dose medications for GFR less than 15 --left arm nephrology precaution Thank you for allowing me to participate in your patient's care. It was a pleasure to see Cornelio (2) CKD (chronic kidney disease): (3) CHF exacerbation: (4) Aortic stenosis: (5) Hyperkalemia: (6) Secondary hyperparathyroidism (of renal origin): (7) Hyponatremia: History of Present Illness Reason for Consultation: Acute kidney injury, hyperkalemia, diuretic resistant volume overload with history of underlying CKD. Attending Physician: Jacques Harrell History of Present Illness Mr. Davidson is a 78-year-old gentlemen with past medical history significant for stage 3 chronic kidney disease secondary to cardiorenal syndrome, ischemic cardiomyopathy, diabetes, atrial fibrillation admitted to the hospital with acute exacerbation of chronic congestive heart failure. Nephrology consult was requested to manage acute kidney injury, diuresed decreased in volume overload and hyperkalemia. Electronic medical records including labs and imaging are reviewed in detail during patient's visit. History was mainly taken from EMR review, discussion with other providers as well as discussion with his and daughter Ofe over telephone as he does not speak Arabic Cornelio has history of coronary artery disease, AFib, ischemic cardiomyopathy status post biventricular AICD, EF 25-30%. He has been on Bumex 3 mg in a.m. and 2 mg in afternoon which was recently increased at his visit with [facility] when he was found to be volume overloaded. He has been progressively gaining weight over last few weeks and there was some concern over dietary noncompliance. He was admitted to the hospital on 11/05/2018 with progressive worsening shortness of breath and weight gain. On admission he was found to have significant volume overload, pulmonary congestion and acute kidney injury. He was started on IV dobutamine and Bumex 3 mg IV 3 times a day. Despite being on dobutamine and high dose diuretics, he remained significantly volume overloaded and renal function started to decline further with significant electrolyte abnormality including hyponatremia and hyperkalemia. This morning his renal function worsened further, developed hyperkalemia and was getting more short of breath. At baseline he has stage IIIB chronic kidney disease however baseline creatinine has been quite variable depending on his volume status in general staying around 2-2.3. No history of proteinuria or diabetic retinopathy. He has other stigmata advanced chronic kidney disease including secondary hyperparathyroidism. Currently he has a complaining of persistent shortness of breath and being very uncomfortable. Denies chest pain. Allergies Allergy/AdvReac Type Severity Reaction Status Date / Time No Known Allergies Allergy Verified 11/05/18 10:09 Home Medications Home Medications Medication Instructions Recorded Confirmed Type allopurinol 100 mg PO BID 07/13/18 11/05/18 History amiodarone 200 mg PO QDL 07/13/18 11/05/18 History apixaban [Eliquis] 5 mg PO BID 07/13/18 11/05/18 History aspirin [Aspirin Low Dose] 81 mg PO QAM 07/13/18 11/05/18 History bumetanide 3 mg PO QAM 07/13/18 11/05/18 History calcitriol 0.5 mcg PO QAM 07/13/18 11/05/18 History insulin asp prt-insulin aspart 20 - 25 unit SUBCUT DAILY 07/13/18 11/05/18 History [Novolog Mix 70-30FlexPen U-100] insulin glargine [Basaglar KwikPen 35 unit SUBCUT HS 07/13/18 11/05/18 History U-100 Insulin] ipratropium-albuterol [Combivent 1 puff INHALATION Q6H 07/13/18 11/05/18 History Respimat] levothyroxine 75 mcg PO QAM 07/13/18 11/05/18 History potassium chloride 40 meq PO BID 07/13/18 11/05/18 History simvastatin 40 mg PO HS 07/13/18 11/05/18 History zolpidem 1.25 mg PO DIRECTED PRN 07/13/18 11/05/18 History polyethylene glycol 3350 [Miralax] 17 g PO DAILY #30 ea 07/15/18 11/05/18 Rx flaxseed oil 1,000 mg PO TID 10/05/18 11/05/18 History fluocinonide 1 appln TOP DAILY #60 gm 10/05/18 11/05/18 Rx metolazone 1 tab PO 2XWK 10/05/18 11/05/18 History nitroglycerin 1 tab SUBLINGUAL DAILY PRN 10/05/18 11/05/18 History bumetanide 2 mg PO PM 11/05/18 11/05/18 History bumetanide 2 mg PO UD 11/05/18 11/05/18 History docusate sodium [Colace] 100 mg PO BID 11/05/18 11/05/18 History potassium chloride 20 meq PO UD 11/05/18 11/05/18 History Patient History Medical History Atrial fibrillation (Chronic) Hypothyroidism HLD (hyperlipidemia) (Chronic) Aortic stenosis (Chronic) GERD (gastroesophageal reflux disease) (Chronic) Chronic combined systolic and diastolic CHF (congestive heart failure) (Chronic) CKD (chronic kidney disease), stage III (Chronic) Ischemic cardiomyopathy (Chronic) Pulmonary hypertension (Chronic) Arthritis (Chronic) Surgical History S/P cardiac pacemaker procedure Social History marital status: Current Living Situation: Spouse Other Information That Helps Us Care for You: No Feels Safe at Home: Yes Safety Concerns: Feels Safe At This Time Smoking Status: Never smoker Do You Dip or Chew Tobacco: No Second Hand Exposure: No Tobacco Cessation Education Requested by Patient: No Hx Alcohol Use: No Hx Substance Use: No Beliefs That Will Affect Care: None Communication Ability: language Review of Systems Detailed review of system was negative except mentioned in HPI Physical Exam 2 Vital Signs (Past 24 Hours): Last Vital Signs Temp 36.4 C L 11/09/18 11:43 Pulse 95 H 11/09/18 11:43 Resp 18 11/09/18 11:43 BP 102/72 11/09/18 11:43 Pulse Ox 95 11/09/18 11:43 Physical Exam: GENERAL: Elderly gentlemen, AAA x 3 but in moderate distress. HEENT: Atraumatic, normocephalic. NECK: Supple, no JVD ENT: No sinus tenderness MOUTH and THROAT: Moist oral mucosa RESPIRATORY: Rales and decreased breath sound bilaterally CARDIOVASCULAR: S1, S2 normal, rate controlled, rhythm irregular. ABDOMEN: Soft, nontender, positive bowel sound. MUSCULOSKELETAL:No joint swelling, erythema or tenderness. Normal range of motion. SKIN: No skin rash EXTREMITY: 2-3 + lower extremity edema NEURO: No gross focal neurological deficit, moves all extremities PSYCHIATRY: Normal mood and judgment _ (1) CKD (chronic kidney disease) Chronic kidney disease stage: stage 4 (severe) Qualified Code(s): N18.4 - Chronic kidney disease, stage 4 (severe) (2) CHF exacerbation Heart failure type: systolic Qualified Code(s): I50.23 - Acute on chronic systolic (congestive) heart failure
--- NOTE | 2018-11-09 12:39 | Anesthesiology Consultation ---
Date of Service November 09, 2018 Assessment & Plan Chart Review Chart Review: Acceptable Risk for Surgery Consults Requested none Teaching & Discussion Pt had orange and coffee approx 5 hrs ago. Subsequently developed acute dyspnea , diagnosed acute on chronic CHF. In presence of ESRD, treatment of fluid overload requires emergency dialysis. Therefore placement of dialysis catheter is deemed emergent and potentially life-saving and will proceed on emergency basis.. Discussed with pt and his via baker doughnut. He expressed understanding and signed informed consent. ASA [id number] Proposed Anesthesia Anesthesia Type: MAC Risk / Benefits Reviewed With: PT / POA / Parent / Guardian, Accepts Plan and Informed Consent Obtained NPO Date Last Intake of Fluids: 11/09/18 Time Last Intake of Fluids: 10:00 Last Intake of Fluids Comment: "couple sips" Date Last Intake of Solids: 11/09/18 Time Last Intake of Solids: 07:30 History Surgery Operation Date: 11/09/18 11:30 Proposed Procedures p Perm Catheter Placement - Will Rajput MD Height/Weight Height: 5 ft 8 in Weight: 100.2 kg Allergies Allergy/AdvReac Type Severity Reaction Status Date / Time No Known Allergies Allergy Verified 11/05/18 10:09 Medications Home Medications Medication Instructions Recorded Confirmed Last Taken allopurinol 100 mg PO BID 07/13/18 11/05/18 11/04/18 amiodarone 200 mg PO QDL 07/13/18 11/05/18 11/04/18 apixaban [Eliquis] 5 mg PO BID 07/13/18 11/05/18 11/04/18 aspirin [Aspirin Low Dose] 81 mg PO QAM 07/13/18 11/05/18 11/04/18 bumetanide 3 mg PO QAM 07/13/18 11/05/18 11/04/18 calcitriol 0.5 mcg PO QAM 07/13/18 11/05/18 11/04/18 insulin asp prt-insulin aspart 20 - 25 unit SUBCUT DAILY 07/13/18 11/05/1811/05 07:30 [Novolog Mix 70-30FlexPen U-100] 20 units insulin glargine [Basaglar KwikPen 35 unit SUBCUT HS 07/13/18 11/05/18 11/04/18 U-100 Insulin] ipratropium-albuterol [Combivent 1 puff INHALATION Q6H 07/13/18 11/05/18 Respimat] levothyroxine 75 mcg PO QAM 07/13/18 11/05/18 11/05/18 potassium chloride 40 meq PO BID 07/13/18 11/05/18 11/04/18 21:00 simvastatin 40 mg PO HS 07/13/18 11/05/18 11/04/18 zolpidem 1.25 mg PO DIRECTED PRN 07/13/18 11/05/18 11/04/18 polyethylene glycol 3350 [Miralax] 17 g PO DAILY #30 ea 07/15/18 11/05/18 flaxseed oil 1,000 mg PO TID 10/05/18 11/05/18 11/04/18 21:00 fluocinonide 1 appln TOP DAILY #60 gm 10/05/18 11/05/18 11/04/18 metolazone 1 tab PO 2XWK 10/05/18 11/05/18 11/03/18 nitroglycerin 1 tab SUBLINGUAL DAILY PRN 10/05/18 11/05/18 Unknown bumetanide 2 mg PO PM 11/05/18 11/05/18 11/04/18 17:00 bumetanide 2 mg PO UD 11/05/18 11/05/18 11/05/18 docusate sodium [Colace] 100 mg PO BID 11/05/18 11/05/18 11/04/18 21:00 potassium chloride 20 meq PO UD 11/05/18 11/05/18 11/05/18 07:30 Active Medications Generic Name Dose Route Start Last Admin Trade Name Freq PRN Reason Stop Dose Admin Acetaminophen 650 mg 11/05/18 13:03 11/08/18 14:53 Tylenol PO 12/05/18 13:02 650 mg Q4H PRN Administration Pain or Fever Albuterol 1 puffs 11/05/18 13:30 11/09/18 05:32 Combivent Respimat INH 12/05/18 13:29 1 puffs Q6 JANEL Administration Allopurinol 100 mg 11/05/18 21:00 11/09/18 07:39 Zyloprim PO 12/05/18 20:59 100 mg BID JANEL Administration Amiodarone HCl 200 mg 11/05/18 13:30 11/08/18 12:08 Cordarone PO 12/05/18 13:29 200 mg QDL JANEL Administration Aspirin 81 mg 11/06/18 09:00 11/09/18 07:40 Ecotrin Ectab PO 12/06/18 08:59 81 mg QAM JANEL Administration Calcitriol 0.5 mcg 11/06/18 09:00 11/09/18 07:39 Racaltrol PO 12/06/18 08:59 0.5 mcg QAM JANEL Administration Docusate Sodium 100 mg 11/05/18 21:00 11/09/18 07:40 Colace PO 12/05/18 20:59 100 mg BID JANEL Administration Fluocinonide 1 appln 11/06/18 09:00 11/09/18 07:41 Lidex 0.5% EXT 12/06/18 08:59 Not Given DAILY JANEL Dobutamine HCl/Dextrose 500 mg in 250 mls @ 15.255 mls/hr 11/05/18 13:30 21:44 Dobutamine / D5w IV 12/05/18 13:29 5.01 mcg/kg/min .[id number] JANEL 15.3 mls/hr Administration Protocol 5 MCG/KG/MIN Bumetanide 3 mg/ Syringe 12 mls @ 4 mls/min 11/05/18 14:00 11/09/18 05:32 IV 12/05/18 13:59 4 mls/min Q8 JANEL Administration Insulin Aspart 0 units 11/05/18 13:30 11/09/18 11:55 Novolog Flexpen SC 12/05/18 13:29 1 units ACHS JANEL Administration Insulin Glargine 35 units 11/05/18 21:00 11/08/18 21:47 Lantus Solostar Pen SQ 12/05/18 20:59 35 units HS JANEL Administration Levothyroxine Sodium 75 mcg 11/06/18 06:30 11/09/18 05:31 Synthroid PO 12/06/18 06:29 75 mcg DAILYBB JANEL Administration Miscellaneous 1 ea 11/07/18 09:00 11/09/18 07:41 Remove Lidoderm Patch N/A 12/07/18 08:59 1 ea DAILY@0900 JANEL Administration Morphine Sulfate 2 mg 11/05/18 13:03 11/07/18 13:02 Morphine Sulfate IV 11/19/18 13:02 2 mg Q30M PRN Administration Chest Pain Oxycodone HCl 10 mg 11/05/18 13:03 11/09/18 01:44 Roxicodone Immediate Rel PO 11/19/18 13:02 10 mg Q8 PRN Administration Pain Polyethylene Glycol 17 gm 11/06/18 09:00 11/09/18 10:06 Miralax Powder Packet PO 12/06/18 08:59 Not Given DAILY JANEL Polyethylene Glycol 17 gm 11/05/18 22:05 11/06/18 22:03 Miralax Powder Packet PO 12/05/18 22:04 17 gm DAILY PRN Administration Constipation Potassium Chloride 40 meq 11/05/18 21:00 11/08/18 09:50 Klor-Con M20 PO 12/05/18 20:59 Not Given BID JANEL Ranolazine 500 mg 11/07/18 21:00 11/09/18 07:40 Ranexa PO 12/07/18 20:59 500 mg Q12 JANEL Administration Simvastatin 40 mg 11/05/18 21:00 11/06/18 20:17 Zocor PO 12/05/18 20:59 40 mg HS JANEL Administration Past Medical History Medical History Atrial fibrillation (Chronic) Hypothyroidism HLD (hyperlipidemia) (Chronic) Aortic stenosis (Chronic) GERD (gastroesophageal reflux disease) (Chronic) Chronic combined systolic and diastolic CHF (congestive heart failure) (Chronic) CKD (chronic kidney disease), stage III (Chronic) Ischemic cardiomyopathy (Chronic) Pulmonary hypertension (Chronic) Arthritis (Chronic) Past Surgical History Surgical History S/P cardiac pacemaker procedure Social History Smoking Status: Never smoker Do You Dip or Chew Tobacco: No Hx Alcohol Use: No alcohol intake frequency: 0-2 drinks per day Hx Substance Use: No Physical Exam Vital Signs Last Vital Signs Temp 37.1 C 11/09/18 12:20 Pulse 92 H 11/09/18 12:20 Resp 24 11/09/18 12:20 BP 112/80 11/09/18 12:20 Pulse Ox 99 11/09/18 12:20 Testing Laboratory Results 11/09/18 06:08 Hemoglobin A1c 6.8 % (4.5-5.6) H 11/06/18 05:56 Urine Color Yellow 11/07/18 12:45 Urine Appearance Clear (Clear) 11/07/18 12:45 Urine pH 7.5 (4.5-7.5) 11/07/18 12:45 Ur Specific [place] 1.013 (1.000-1.030) 11/07/18 12:45 Urine Protein Negative (Negative) 11/07/18 12:45 Urine Glucose (UA) Negative (Negative) 11/07/18 12:45 Urine Ketones Negative (Negative) 11/07/18 12:45 Urine Nitrite Negative (Negative) 11/07/18 12:45 Ur Leukocyte Esterase Negative (Negative) 11/07/18 12:45 11/09/18 11/09/18 11:27 07:31 POC Glucose 156 H 177 H Laboratory Tests 11/09/18 11/09/18 06:08 06:08 WBC 9.90 Hgb 15.3 Plt Count 91 L Sodium 127 L D Potassium 5.4 H Chloride 92 L Carbon Dioxide 27 BUN 79 H Creatinine 3.51 H D Glucose 157 H NT-Pro-B Natriuret Pep 15672 H
[2018-11-09] MEDS ORDERED: ePHEDrine sulfate 50 MG/ML AMP IV PRN (12:45)
[2018-11-09] MEDS ORDERED: ATROPINE SULFATE 0.1 MG/ML 10ML SYR IV PRN (12:45)
[2018-11-09] MEDS ORDERED: MoRPHine SULFATE 2 MG/ML CARP ONE (12:47)
[2018-11-09 12:50] LABS: BUN Creatinine Ratio 21.6 (10-20); Calcium 8.5 mg/dl (8.5-10.1); Creatinine Clr Calc Pharmacy 18.6 ml/min; Est GFR (African American) 16.4; Est GFR (Non-African American) 14.1; Phosphorus 4.5 mg/dl (2.5-4.9); Potassium 6.1 mmol/L (3.5-5.1)
[2018-11-09 12:59] LABS: Hepatitis B Surface Antibody Non-Immune
--- NOTE | 2018-11-09 13:08 | Operative Report ---
Post Operative Report Pre & Post Diagnosis Operation Date: 11/09/18 11:30 Pre-Op Diagnosis: Acute Kidney Injury Post-Op Diagnosis: Acute Kidney Injury Procedure Operation Date: 11/09/18 11:30 Actual Procedures p Perm Catheter Placement Right Jugular Vein, Ultrasound Localization of Right Jugular Vein, Fluoroscopy for Comfirmation(Right) - Will Rajput MD Surgeon Will Rajput MD Public Policy Analyst None Estimated Blood Loss 5 Findings Consistent with Post-Op Diagnosis Specimens None Anesthesia Type MAC Complications none Disposition Accompanied Patient To Recovery: No Disposition: Recovery Room Indications This is a 78-year-old male with severe congestive heart failure and acute kidney injury in need of dialysis. I have discussed the risks options and benefits of the procedure with the patient, his and daughter.. They all understood the risks options and benefits and agrees to the procedure. Description of Procedure Patient was taken to the angio suite and placed in the supine position. The right side of the neck and chest wall were prepped and draped in a sterile manner. Local anesthesia was then administered to the appropriate areas of the neck and chest wall. Ultrasound was then used to locate the right internal jugular vein. The vein compressed easily, had no filing defects, and was patent. The vein was then punctured under direct ultrasound imaging. A guidewire was then passed centrally under fluoroscopic imaging. A stab wound was then made in the anterior chest wall and a 19 cm permcath was passed from the stab wound on the chest wall to the puncture site on the neck. The puncture site was then dilated till the 14Fr peel away sheath was inserted. The permcath was then inserted through the sheath to a central position in the distal superior vena cava. The peel away sheath was then removed. The catheter was then sutured in place using nylon sutures. The puncture was then closed using a 4-0 Vicryl subcuticular suture. Dermabond was used for a dressing on the puncture site. Both ports aspirated and flushed easily and were then packed with heparin. A sterile dressing was applied to the catheter. The patient left the angio suite in good condition and tolerated the procedure well. The patient left the operation room in satisfactory condition and tolerated the procedure well. All needle and sponge counts were correct at the end of the procedure. I attest to the content of the Intraoperative Record and any orders documented therein. Any exceptions are noted below.
[2018-11-09 13:10] LABS: Hepatitis B Surface Antigen Neg (Neg)
[2018-11-09] MEDS ORDERED: MIDODRINE HCL 10 MG TAB PO ONE (13:55)
[2018-11-09] MEDS: AMIODARONE 200 MG TAB PO SCH (14:30)
[2018-11-09] MEDS: DOBUTamine / D5W 500 MG/250 ML BAG IV SCH (15:38)
[2018-11-09] MEDS: APIXABAN 2.5 MG TAB PO SCH ×2 (17:19→19:30)
--- NOTE | 2018-11-09 17:20 | Anesthesiology Progress Note ---
Date of Service November 09, 2018 Anesthesia Post Procedure Vital Signs Vital Signs: Temp Pulse Pulse Pulse Pulse Resp BP 11/09/18 16:15 36.9 C 69 11/09/18 16:00 70 108/54 L 11/09/18 15:45 69 96/50 L 11/09/18 15:30 69 99/50 L 11/09/18 15:15 69 109/54 L 11/09/18 15:00 70 104/51 L 11/09/18 14:45 72 119/56 L 11/09/18 14:30 90 93/46 L 11/09/18 14:15 89 113/75 11/09/18 14:00 36.9 C 89 11/09/18 13:35 37.8 C H 85 20 11/09/18 13:30 94 H 20 11/09/18 13:20 83 14 11/09/18 13:13 36.8 C 93 H 10 L 11/09/18 12:20 37.1 C 92 H 24 11/09/18 11:43 36.4 C L 95 H 18 11/09/18 07:12 36.8 C 18 11/09/18 04:00 37.1 C 72 19 11/08/18 23:23 37.2 C 79 19 11/08/18 20:57 36.3 C L 71 24 BP BP Pulse Ox 11/09/18 16:15 99/54 L 11/09/18 16:00 11/09/18 15:45 11/09/18 15:30 11/09/18 15:15 11/09/18 15:00 11/09/18 14:45 11/09/18 14:30 11/09/18 14:15 11/09/18 14:00 11/09/18 13:35 92/69 L 97 11/09/18 13:30 90/68 L 97 11/09/18 13:20 104/73 98 11/09/18 13:13 101/71 94 11/09/18 12:20 112/80 99 11/09/18 11:43 102/72 95 11/09/18 07:12 93/59 L 95 11/09/18 04:00 95/56 L 93 11/08/18 23:23 121/77 90 11/08/18 20:57 97/61 L 97 Pain Intensity Right Lower Back: Pain Intensity: 2 Notes Mental Status: see notes below (Somnolent, consistent with pre-op) Patient Amnestic to Procedure: Yes Nausea / Vomiting: adequately controlled Pain: adequately controlled Airway Patency, RR, SpO2: stable & adequate BP & HR: stable & adequate Hydration State: stable & adequate Anesthetic Complications: no major complications apparent
[2018-11-09] MEDS: INSULIN GLARGINE SOLOSTAR 100 UNITS/ML 3 ML PEN SQ SCH (20:54)
--- NOTE | 2018-11-09 22:58 | Hospitalist Progress Note ---
Date of Service November 09, 2018 Assessment & Plan (1) Chronic combined systolic and diastolic CHF (congestive heart failure): acute exacerbation of chronic heart failure Patient has been on Bumex and dobutamine. Patient however has not had significant urine output and weight has not decreased as much as had hoped. Repeated chest xray which does not show singificant improveemnt. will continue with above meds. Recheck creatinine. unsure of how long this will take, weight is up by about 20 lbs from baseline has significant peripheral edema Placed urine [place]. Creatinine continues to be elevated on 11/09. Patient is not having significant urine output. Consulted nephro for possible HD. Nephro agreed, scheduled for today and this was done after vascular obtained access for HD. Patient had 1 liter of fluid removed. Patient will have another treatment in AM. (2) CKD (chronic kidney disease), stage III: Cr worsened to above 3 Patient had HD today. (3) Atrial fibrillation: continue Amiodarone and Eliquis patient is paced on the monitor (4) Angina at rest: due to history of CAD minimal rise in troponin, not significant cannot interpret EKG due to paced rhythm continues to have intermittent pain today could be a result of Dobutamine putting some strain on heart Ranexa was tried. do not plan on using it after discharge (5) Hypothyroidism: Maintains on Synthroid (6) Diabetes: diabetic diet basal bolus insulin monitor for hypoglycemia (7) Acute back pain: Patient's acute back pain is more down his right sacroiliac joint. He did have a CT scan of his abdomen to rule out renal stones pain better today, not complaining at all (8) Acute renal failure: Patient had creat at 3.3 on admission. Again, worsened today. (9) DVT prophylaxis: Eliquis therapy serves as his DVT prevention. Will hold today for bleeding for vascular access. Plan:continue dobutamine and Bumex TID until he reaches a dry weight monitor BMP daily discussed with patient and family that this is temporary, cannot given dobutamine outside of the hospital if these measures fail to improve volume overload or if Cr climbs significantly, would consult palliative care Spent 70 minutes in management of patient. From 8:30 to 9:15 15:00 to 15:35 Subjective 78 yo male is a poor historian as he does not speak german well. He is a [place] speaker. He reports that after dialysis, he is breathing slightly better. I was called throughout the day prior to dialysis as patient BP began to decrease and he was getting more tachypnic. Discussed case with back stayer that patient may need to be transferred down to the ICU. However, when I went back in the room, patient had began dialysi, and was tolerating it. Respiratory: + dyspnea on exertion Cardiovascular: + chest pain, + dyspnea, + dyspnea on exertion, + orthopnea and + edema Physical Exam 2 Vital Signs (Past 24 Hours): Last Vital Signs Temp 36.4 C L 11/09/18 20:00 Pulse 71 11/09/18 20:00 Resp 18 11/09/18 20:00 BP 102/65 11/09/18 20:00 Pulse Ox 96 11/09/18 20:00 Physical Exam: Constitutional: WD/WN, vitals as above Eyes: PERRL, conjunctivae normal, anicteric sclerae ENMT: external ear and nose normal, oropharynx normal Neck: trachea midline, no thyromegaly Respiratory: normal respiratory effort; no respiratory distress, appears tachypnic. Auscultation: + diminished lung sounds and + rales (bases) Cardiovascular: Rate/Rhythm: regular rate Heart Sounds: normal S1 and normal S2; no murmur Vessels: normal peripheral pulses; no JVD Extremities: + pedal edema Gastrointestinal (Abdomen): normal bowel sounds, soft, nontender, no hepatosplenomegaly Musculoskeletal: no cyanosis or clubbing, extremities motor strength 5/5 Skin: no rashes, warm and dry Neurologic: PERRL, EOMI, accommodation nl, no face palsy, no dysarthria Psychiatric: A+Ox3, euthymic affect Lymphatic: no cervical or axillary lymphadenopathy _ (1) Atrial fibrillation Atrial fibrillation type: permanent Qualified Code(s): I48.2 - Chronic atrial fibrillation
[2018-11-10] MEDS: MoRPHine SULFATE 2 MG/ML CARP IV PRN (01:51)
[2018-11-10] MEDS: BUMETANIDE 3 MG in SYRINGE 0 ML IV SCH (06:03)
[2018-11-10] MEDS: IPRATROPIUM BROMIDE/ALBUTEROL respimat INH INH SCH ×4 (06:04→23:38)
[2018-11-10] MEDS: DOBUTamine / D5W 500 MG/250 ML BAG IV SCH ×2 (07:26→23:39)
[2018-11-10] MEDS: LEVOTHYROXINE SODIUM 75 MCG TABLET PO SCH (07:27)
[2018-11-10] MEDS: INSULIN ASPART 100 UNITS/ML 3 ML PEN SC SCH ×4 (08:01→21:19)
[2018-11-10] MEDS: CALCITRIOL 0.25 MCG CAPSULE PO SCH (08:02)
[2018-11-10] MEDS: ALLOPURINOL 100 MG TAB PO SCH ×2 (08:02→21:19)
[2018-11-10] MEDS: NEPHROCAPS PO SCH (08:03)
[2018-11-10] MEDS: RANOLAZINE 500 MG ER TAB PO SCH ×2 (08:03→21:19)
[2018-11-10] MEDS: POLYETHYLENE (MIRALAX) 17 GM PACK PO SCH (08:03)
[2018-11-10] MEDS: DOCUSATE SODIUM 100 MG CAP PO SCH ×2 (08:03→21:19)
[2018-11-10] MEDS ORDERED: SODIUM CHLORIDE 0.9% 1000ML 1,000 ML IV PRN (08:39)
[2018-11-10] MEDS: ASPIRIN 81 MG ECTAB PO SCH (09:22)
[2018-11-10] MEDS: APIXABAN 2.5 MG TAB PO SCH ×2 (09:22→21:55)
[2018-11-10] MEDS: BUMETANIDE 1 MG TAB PO SCH ×2 (09:22→21:19)
[2018-11-10] MEDS: FLUOCINONIDE 0.05% CR 15 GM TUBE EXT SCH (09:23)
[2018-11-10 09:39] LABS: BUN Creatinine Ratio 21.6 (10-20); Creatinine Clr Calc Pharmacy 19.1 ml/min; Est GFR (African American) 16.7; Est GFR (Non-African American) 14.4; Potassium 5.6 mmol/L (3.5-5.1)
--- NOTE | 2018-11-10 10:06 | Cardiology Progress Note ---
Date of Service November 10, 2018 Assessment & Plan (1) CHF exacerbation: The patient was admitted with acute on chronic systolic CHF likely secondary to noncompliance with his medications and salt intake. Volume is now being managed by hemodialysis. (2) Ischemic cardiomyopathy: Most recent echocardiogram performed in August 2017 noted an ejection fraction of 25-30% with multiple wall motion abnormalities. He also had evidence of moderate aortic stenosis. (3) CAD (coronary artery disease), [place] coronary artery: The patient has a history of LAD stenting x2. Currently is stable without complaints of angina pectoris. (4) Atrial fibrillation: The patient typically takes Eliquis 5 mg twice daily for long-term anticoagulant. His heart rate is adequately controlled. Subjective The patient is resting comfortably in bed without complaints of chest pain or dyspnea. He is tolerating hemodialysis without difficulty. Physical Exam 2 Vital Signs (Past 24 Hours): Last Vital Signs Temp 36.4 C L 11/10/18 07:54 Pulse 70 11/10/18 07:54 Resp 22 11/10/18 07:54 BP 108/74 11/10/18 07:54 Pulse Ox 97 11/10/18 07:54 Physical Exam: In general is a well-developed well-nourished male seated at the bedside without complaints. HEENT exam is negative. Neck is supple with full carotid upstrokes. No carotid bruits. Jugular venous pressure elevated to the angle of the jaw. No thyromegaly. Cardiovascular exam reveals a regular rhythm with distant heart sounds. No obvious murmurs. No S3. Chest notes dressing across the right shoulder. Lungs note decrease breath sounds and rales at the bases bilaterally. Abdomen is obese without bruits. Chest reveals a palpable device in the left subclavicular region. Extremities reveal intact radial artery pulses bilaterally. 2+ pretibial edema is noted. Results & Data Laboratory Results Laboratory Results - last 24 hr 11/09/18 11/09/18 11/09/18 11:27 12:04 12:04 Sodium 126 L Potassium 6.1 H* Chloride 91 L Carbon Dioxide 28 Anion Gap 7.0 BUN 84 H Creatinine 3.88 H D Est Cr Clr Drug Dosing 18.6 Est GFR ( Amer) 16.4 Est GFR (Non-Af Amer) 14.1 BUN/Creatinine Ratio 21.6 H Glucose 145 H POC Glucose 156 H Calcium 8.5 Phosphorus 4.5 Albumin 3.0 L Hep Bs Antigen Neg Hep Bs Antibody Non-Immune Hep Bs Antibody, Quant < 3.10 L Hep B Core IgM Ab 11/09/18 11/09/18 11/09/18 12:04 16:48 20:26 Sodium Potassium Chloride Carbon Dioxide Anion Gap BUN Creatinine Est Cr Clr Drug Dosing Est GFR ( Amer) Est GFR (Non-Af Amer) BUN/Creatinine Ratio Glucose POC Glucose 156 H 129 H Calcium Phosphorus Albumin Hep Bs Antigen Hep Bs Antibody Hep Bs Antibody, Quant Hep B Core IgM Ab NON-REACTIVE 11/10/18 11/10/18 11/10/18 01:45 06:00 06:00 Sodium 126 L Potassium 5.6 H Chloride 92 L Carbon Dioxide 28 Anion Gap 6.0 BUN 83 H Creatinine 3.82 H Est Cr Clr Drug Dosing 19.1 Est GFR ( Amer) 16.7 Est GFR (Non-Af Amer) 14.4 BUN/Creatinine Ratio 21.6 H Glucose 134 H POC Glucose 136 H Calcium 8.0 L Phosphorus 5.7 H D Albumin Hep Bs Antigen Hep Bs Antibody Hep Bs Antibody, Quant Hep B Core IgM Ab 11/10/18 07:30 Sodium Potassium Chloride Carbon Dioxide Anion Gap BUN Creatinine Est Cr Clr Drug Dosing Est GFR ( Amer) Est GFR (Non-Af Amer) BUN/Creatinine Ratio Glucose POC Glucose 129 H Calcium Phosphorus Albumin Hep Bs Antigen Hep Bs Antibody Hep Bs Antibody, Quant Hep B Core IgM Ab _ (1) CHF exacerbation Heart failure type: systolic Qualified Code(s): I50.23 - Acute on chronic systolic (congestive) heart failure (2) Atrial fibrillation Atrial fibrillation type: permanent Qualified Code(s): I48.2 - Chronic atrial fibrillation
--- NOTE | 2018-11-10 10:11 | Nephrology Progress Note ---
Date of Service November 10, 2018 Assessment & Plan (1) Acute renal failure: Mr. Davidson is a 78-year-old gentlemen with chronic kidney disease secondary to cardiorenal syndrome ischemic cardiomyopathy, EF 25-30%, atrial fibrillation on chronic anticoagulation and diabetes without retinopathy or proteinuria admitted to the hospital with acute CHF exacerbation. Developed acute kidney injury and electrolyte abnormality. Started on dobutamine and high dose diuretics and has been on for 5 days without any significant improvement in volume status and renal function continues to decline with persistent electrolyte abnormality. Remain non-oliguric however no significant diuresis. He was started on dialysis via right IJ tunnel dialysis catheter on 11/09/2018 --had 1st dialysis treatment yesterday, had 1 L UF, plan for 3 hours dialysis today, UF as tolerated plan for 2 L. --continue on calcitriol, Nephrocaps, --start on phosphate binder if needed --consult social service to set up outpatient dialysis at [facility] -- switch to Bumex 3 mg orally twice a day --decrease Eliquis to 2.5 mg twice a day --dose medications for GFR less than 15 --left arm nephrology precaution Will follow (2) CKD (chronic kidney disease): (3) CHF exacerbation: (4) Aortic stenosis: (5) Hyperkalemia: (6) Secondary hyperparathyroidism (of renal origin): (7) Hyponatremia: Ramírez Quiñones was seen and examined in his room this morning with his at bedside. Discussed with and his son Eleuterio over telephone. He had 1st dialysis treatment yesterday for 2 hours, tolerated 1 L UF and respiratory status somewhat improved. However, he continues to be significantly volume overloaded overall feels uncomfortable. Has been have being bleeding from tunnel dialysis catheter site Review of Systems Detailed review of system was negative except mentioned above. Physical Exam 2 Vital Signs (Past 24 Hours): Last Vital Signs Temp 36.4 C L 11/10/18 07:54 Pulse 70 11/10/18 07:54 Resp 22 11/10/18 07:54 BP 108/74 11/10/18 07:54 Pulse Ox 97 11/10/18 07:54 Constitutional: + acute distress, + ill appearing and + language barrier Respiratory: Auscultation: + diminished lung sounds and + crackles Cardiovascular: Heart Sounds: normal S1 and normal S2 Extremities: + edema and + vascular access device Neurologic: moves all extremities and awake Psychiatric: A+Ox3, euthymic affect _ (1) CKD (chronic kidney disease) Chronic kidney disease stage: stage 4 (severe) Qualified Code(s): N18.4 - Chronic kidney disease, stage 4 (severe) (2) CHF exacerbation Heart failure type: systolic Qualified Code(s): I50.23 - Acute on chronic systolic (congestive) heart failure
[2018-11-10] MEDS: AMIODARONE 200 MG TAB PO SCH (12:23)
[2018-11-10] MEDS: CALCIUM CARBONATE 500 MG CHEWABLE TAB PO SCH ×2 (12:23→18:48)
[2018-11-10] MEDS ORDERED: ACETAMINOPHEN 325 MG TAB PO STA (16:20)
[2018-11-10] MEDS: INSULIN GLARGINE SOLOSTAR 100 UNITS/ML 3 ML PEN SQ SCH (21:19)
--- NOTE | 2018-11-10 23:27 | Hospitalist Progress Note ---
Date of Service November 10, 2018 Assessment & Plan (1) Chronic combined systolic and diastolic CHF (congestive heart failure): acute exacerbation of chronic heart failure Patient was not responding to diuretics. Creatinine was rising and nephro was consulted. HD was planned yesterday. Patient had 1 liter of fluid removed. Patient had another HD session today with 1.5 liters removed. Patient appears to be more comfortable. (2) CKD (chronic kidney disease), stage III: Cr remained above 3 Patient hadsecond HD today. (3) Atrial fibrillation: (4) Angina at rest: due to history of CAD minimal rise in troponin, not significant cannot interpret EKG due to paced rhythm continues to have intermittent pain today could be a result of Dobutamine putting some strain on heart Ranexa was tried. do not plan on using it after discharge (5) Hypothyroidism: Maintains on Synthroid (6) Diabetes: diabetic diet basal bolus insulin monitor for hypoglycemia (7) Acute back pain: Patient's acute back pain is more down his right sacroiliac joint. He did have a CT scan of his abdomen to rule out renal stones pain better today, not complaining at all (8) Acute renal failure: Patient had creat at 3.3 on admission. Again, worsened today. (9) DVT prophylaxis: Eliquis therapy serves as his DVT prevention. Spent 35 minutes in management of patient. \ Subjective 78 yo male is a poor historian as he does not speak [place] well. He is a [place] speaker. Patient again had dialysis today, he reports breathing better. But continues to have chest pain. Family is at bedside and are updated. Respiratory: + dyspnea on exertion Cardiovascular: + chest pain, + dyspnea, + dyspnea on exertion, + orthopnea and + edema Physical Exam 2 Vital Signs (Past 24 Hours): Last Vital Signs Temp 36.3 C L 11/10/18 23:00 Pulse 70 11/10/18 23:00 Resp 18 11/10/18 23:00 BP 113/73 11/10/18 23:00 Pulse Ox 92 11/10/18 23:00 Physical Exam: Constitutional: WD/WN, vitals as above Eyes: PERRL, conjunctivae normal, anicteric sclerae ENMT: external ear and nose normal, oropharynx normal Neck: trachea midline, no thyromegaly Respiratory: normal respiratory effort; no respiratory distress, normal rate Auscultation: + diminished lung sounds and + rales (bases) Cardiovascular: Rate/Rhythm: regular rate Heart Sounds: normal S1 and normal S2; no murmur Vessels: normal peripheral pulses; no JVD Extremities: + pedal edema Gastrointestinal (Abdomen): normal bowel sounds, soft, nontender, no hepatosplenomegaly Musculoskeletal: no cyanosis or clubbing, extremities motor strength 5/5 Skin: no rashes, warm and dry Neurologic: PERRL, EOMI, accommodation nl, no face palsy, no dysarthria Psychiatric: A+Ox3, euthymic affect Lymphatic: no cervical or axillary lymphadenopathDid not respond and creatinine was rising _ (1) Atrial fibrillation Atrial fibrillation type: permanent Qualified Code(s): I48.2 - Chronic atrial fibrillation
[2018-11-11] MEDS: LEVOTHYROXINE SODIUM 75 MCG TABLET PO SCH (05:56)
[2018-11-11] MEDS: IPRATROPIUM BROMIDE/ALBUTEROL respimat INH INH SCH ×3 (05:56→17:40)
[2018-11-11 06:49] LABS: Hematocrit (blood only) 44.5 % (42-52); Hemoglobin 14.2 g/dL (14.0-18.0); Mean Corpuscular Hgb Conc 31.9 g/dL (32-36); Mean Corpuscular Volume 91.6 fL (80-100); Platelet Count 35 K/uL (130-400); RDW Coefficient of Variation 17.2 % (11.5-14.5); RDW Standard Deviation 55.6 fL (36.4-46.3); Red Blood Count 4.86 M/uL (4.7-6.1); White Blood Count 8.93 K/uL (4.8-10.8)
[2018-11-11] MEDS ORDERED: SODIUM CHLORIDE 0.9% 1000ML 1,000 ML IV PRN (07:32)
[2018-11-11] MEDS: CALCITRIOL 0.25 MCG CAPSULE PO SCH (08:34)
[2018-11-11] MEDS: ASPIRIN 81 MG ECTAB PO SCH (08:35)
[2018-11-11] MEDS: CALCIUM CARBONATE 500 MG CHEWABLE TAB PO SCH ×3 (08:35→17:40)
[2018-11-11] MEDS: RANOLAZINE 500 MG ER TAB PO SCH ×2 (08:36→20:43)
[2018-11-11] MEDS: APIXABAN 2.5 MG TAB PO SCH ×2 (08:36→20:44)
[2018-11-11] MEDS: ALLOPURINOL 100 MG TAB PO SCH ×2 (08:36→20:44)
[2018-11-11] MEDS: BUMETANIDE 1 MG TAB PO SCH ×2 (08:37→20:43)
[2018-11-11] MEDS: POLYETHYLENE (MIRALAX) 17 GM PACK PO SCH (08:38)
[2018-11-11] MEDS: DOCUSATE SODIUM 100 MG CAP PO SCH ×2 (08:38→20:44)
[2018-11-11] MEDS: NEPHROCAPS PO SCH (08:38)
[2018-11-11 08:46] LABS: BUN Creatinine Ratio 21.1 (10-20); Calcium 8.1 mg/dl (8.5-10.1); Creatinine Clr Calc Pharmacy 22.1 ml/min; Est GFR (African American) 20.2; Est GFR (Non-African American) 17.4; Potassium 4.9 mmol/L (3.5-5.1)
[2018-11-11] MEDS: INSULIN ASPART 100 UNITS/ML 3 ML PEN SC SCH ×4 (08:52→20:39)
[2018-11-11] MEDS: FLUOCINONIDE 0.05% CR 15 GM TUBE EXT SCH (09:31)
--- NOTE | 2018-11-11 09:58 | Nephrology Progress Note ---
Date of Service November 11, 2018 Assessment & Plan (1) Acute renal failure: Mr. Davidson is a 78-year-old gentlemen with chronic kidney disease secondary to cardiorenal syndrome ischemic cardiomyopathy, EF 25-30%, atrial fibrillation on chronic anticoagulation and diabetes without retinopathy or proteinuria admitted to the hospital with acute CHF exacerbation. Developed acute kidney injury and electrolyte abnormality. Started on dobutamine and high dose diuretics and has been on for 5 days without any significant improvement in volume status and renal function continues to decline with persistent electrolyte abnormality. Remain non-oliguric however no significant diuresis. He was started on dialysis via right IJ tunnel dialysis catheter on 11/09/2018 --dialysis today for 4 hours and plan to continue on Thursday, , Thursday schedule. Aim for UF 2-3 liters as tolerated, continue to challenge to establish dry weight. --continue on calcitriol, Nephrocaps, --start on phosphate binder if needed --consult social service to set up outpatient dialysis at [facility] -- continue Bumex 3 mg orally twice a day --decrease Eliquis to 2.5 mg twice a day --dose medications for GFR less than 15 --left arm nephrology precaution Will follow (2) CKD (chronic kidney disease): (3) CHF exacerbation: (4) Aortic stenosis: (5) Hyperkalemia: (6) Secondary hyperparathyroidism (of renal origin): (7) Hyponatremia: Ramírez Quiñones was seen and examined in his room this morning with his and daughter at bedside. Had 3 hours dialysis yesterday with 1 liter UF, overall volume status slightly improved the the He is lying in bed comfortably, denies any shortness of breath or chest. However, he continues to be significantly volume overloaded overall feels uncomfortable. He has been up at night and sleeping during the days. Physical Exam 2 Vital Signs (Past 24 Hours): Last Vital Signs Temp 36.3 C L 11/11/18 08:28 Pulse 70 11/11/18 08:28 Resp 22 11/11/18 08:28 BP 98/62 L 11/11/18 08:28 Pulse Ox 98 11/11/18 08:28 Constitutional: + acute distress, + ill appearing and + language barrier Respiratory: normal respiratory effort, lungs clear to auscultation Cardiovascular: Heart Sounds: normal S1 and normal S2 Extremities: + edema and + vascular access device Neurologic: moves all extremities and awake Psychiatric: A+Ox3, euthymic affect _ (1) CKD (chronic kidney disease) Chronic kidney disease stage: stage 4 (severe) Qualified Code(s): N18.4 - Chronic kidney disease, stage 4 (severe) (2) CHF exacerbation Heart failure type: systolic Qualified Code(s): I50.23 - Acute on chronic systolic (congestive) heart failure
[2018-11-11] MEDS: AMIODARONE 200 MG TAB PO SCH (12:41)
--- NOTE | 2018-11-11 13:23 | Cardiology Progress Note ---
Date of Service November 11, 2018 Assessment & Plan (1) CHF exacerbation: The patient was admitted with acute on chronic systolic CHF which was likely secondary to noncompliance with his medications and salt intake. His hypervolemia is improving with hemodialysis. (2) Ischemic cardiomyopathy: Most recent echocardiogram performed in August 2017 noted an ejection fraction of 25-30% with multiple wall motion abnormalities. He also had evidence of moderate aortic stenosis. (3) CAD (coronary artery disease), [place] coronary artery: The patient has a history of LAD stenting x2. Currently is stable without complaints of chest discomfort. (4) Atrial fibrillation: The patient typically takes Eliquis 5 mg twice daily for long-term anticoagulant. His heart rate is adequately controlled. Subjective The patient is resting comfortably in in the bedside chair without complaints of chest pain or dyspnea. His and daughter are present. Physical Exam 2 Vital Signs (Past 24 Hours): Last Vital Signs Temp 36 C L 11/11/18 12:07 Pulse 70 11/11/18 13:15 Resp 20 11/11/18 12:07 BP 114/75 11/11/18 13:15 Pulse Ox 97 11/11/18 12:07 Physical Exam: In general is a well-developed well-nourished male seated at the bedside without complaints. HEENT exam is negative. Neck is supple with full carotid upstrokes. No carotid bruits. Jugular venous pressure elevated to the angle of the jaw. No thyromegaly. Cardiovascular exam reveals a regular rhythm with distant heart sounds. No obvious murmurs. No S3. Chest notes dressing across the right shoulder. Lungs note decrease breath sounds and rales at the bases bilaterally. Abdomen is obese without bruits. Chest reveals a palpable device in the left subclavicular region. Extremities reveal intact radial artery pulses bilaterally. 2+ pretibial edema is noted. Results & Data Laboratory Results Laboratory Results - last 24 hr 11/10/18 11/10/18 11/10/18 13:39 16:31 20:16 WBC RBC Hgb Hct MCV MCH MCHC RDW Std Deviation RDW Coeff of [place] Plt Count MPV Sodium Potassium Chloride Carbon Dioxide Anion Gap BUN Creatinine Est Cr Clr Drug Dosing Est GFR ( Amer) Est GFR (Non-Af Amer) BUN/Creatinine Ratio Glucose POC Glucose 128 H 202 H 172 H Calcium 11/11/18 11/11/18 11/11/18 05:51 05:51 07:30 WBC 8.93 RBC 4.86 Hgb 14.2 Hct 44.5 MCV 91.6 MCH 29.2 MCHC 31.9 L RDW Std Deviation 55.6 H RDW Coeff of [place]enezer 17.2 H Plt Count 35 L D MPV 11.0 H Sodium 127 L Potassium 4.9 Chloride 92 L Carbon Dioxide 24 Anion Gap 10.0 BUN 69 H Creatinine 3.26 H D Est Cr Clr Drug Dosing 22.1 Est GFR ( Amer) 20.2 Est GFR (Non-Af Amer) 17.4 BUN/Creatinine Ratio 21.1 H Glucose 140 H POC Glucose 118 H Calcium 8.1 L 11/11/18 11:19 WBC RBC Hgb Hct MCV MCH MCHC RDW Std Deviation RDW Coeff of [place]ene[place] Plt Count MPV Sodium Potassium Chloride Carbon Dioxide Anion Gap BUN Creatinine Est Cr Clr Drug Dosing Est GFR ( Amer) Est GFR (Non-Af Amer) BUN/Creatinine Ratio Glucose POC Glucose 177 H Calcium _ (1) CHF exacerbation Heart failure type: systolic Qualified Code(s): I50.23 - Acute on chronic systolic (congestive) heart failure (2) Atrial fibrillation Atrial fibrillation type: permanent Qualified Code(s): I48.2 - Chronic atrial fibrillation
[2018-11-11] MEDS: ACETAMINOPHEN 325 MG TAB PO PRN (15:31)
[2018-11-11] MEDS: OXYCODONE HCL IR 5 MG TAB (IMMEDIATE RELEASE) PO PRN (16:54)
[2018-11-11] MEDS: DOBUTamine / D5W 500 MG/250 ML BAG IV SCH (16:56)
[2018-11-11] MEDS: INSULIN GLARGINE SOLOSTAR 100 UNITS/ML 3 ML PEN SQ SCH (20:41)
--- NOTE | 2018-11-11 21:28 | Hospitalist Progress Note ---
Date of Service November 11, 2018 Assessment & Plan (1) Chronic combined systolic and diastolic CHF (congestive heart failure): acute exacerbation of chronic heart failure Patient was not responding to diuretics. Creatinine was rising and nephro was consulted. HD was planned yesterday. Patient had 2.5 liters total past 2 days. Patient is currently receiving 3rd session of dialysis today. Patient continues on dobutamine. (2) CKD (chronic kidney disease), stage III: Cr remained above 3 Patient having 3rd session of HD today. (3) Atrial fibrillation: continue Amiodarone and Eliquis patient is paced on the monitor (4) Angina at rest: due to history of CAD minimal rise in troponin, not significant cannot interpret EKG due to paced rhythm continues to have intermittent pain today could be a result of Dobutamine putting some strain on heart Ranexa was tried. do not plan on using it after discharge (5) Hypothyroidism: Maintains on Synthroid (6) Diabetes: diabetic diet basal bolus insulin monitor for hypoglycemia (7) Acute back pain: Patient's acute back pain is more down his right sacroiliac joint. He did have a CT scan of his abdomen to rule out renal stones pain better today, not complaining at all (8) Acute renal failure: Patient has Acute renal failure requiring HD. Patient is likely now End stage renal disease. (9) DVT prophylaxis: Eliquis therapy serves as his DVT prevention. Spent 25 minutes in management of patient. Subjective 78 yo male is a poor historian as he does not speak [place]ian well. He is a [place] speaker. Patient is having 3rd consecutive day of dialysis today, he reports breathing better. But continues to have chronic chest pain. Family is at bedside and are updated. Respiratory: + dyspnea on exertion Cardiovascular: + chest pain, + dyspnea, + dyspnea on exertion, + orthopnea and + edema Physical Exam 2 Vital Signs (Past 24 Hours): Last Vital Signs Temp 36.4 C L 11/11/18 19:41 Pulse 67 11/11/18 19:41 Resp 18 11/11/18 19:41 BP 85/52 L 11/11/18 19:41 Pulse Ox 96 11/11/18 19:41 Physical Exam: Constitutional: WD/WN, vitals as above Eyes: PERRL, conjunctivae normal, anicteric sclerae ENMT: external ear and nose normal, oropharynx normal Neck: trachea midline, no thyromegaly Respiratory: normal respiratory effort; no respiratory distress, normal rate Auscultation: + diminished lung sounds and + rales (bases) Cardiovascular: Rate/Rhythm: regular rate Heart Sounds: normal S1 and normal S2; no murmur Vessels: normal peripheral pulses; no JVD Extremities: + pedal edema Gastrointestinal (Abdomen): normal bowel sounds, soft, nontender, no hepatosplenomegaly Musculoskeletal: no cyanosis or clubbing, extremities motor strength 5/5 Skin: no rashes, warm and dry Neurologic: PERRL, EOMI, accommodation nl, no face palsy, no dysarthria Psychiatric: A+Ox3, euthymic affect Lymphatic: no cervical or axillary lymphadenopathDid not respond and creatinine was rising _ (1) Atrial fibrillation Atrial fibrillation type: permanent Qualified Code(s): I48.2 - Chronic atrial fibrillation
[2018-11-12] MEDS: IPRATROPIUM BROMIDE/ALBUTEROL respimat INH INH SCH ×4 (00:26→18:15)
[2018-11-12] MEDS: LEVOTHYROXINE SODIUM 75 MCG TABLET PO SCH (05:49)
[2018-11-12] MEDS: CALCITRIOL 0.25 MCG CAPSULE PO SCH (07:52)
[2018-11-12] MEDS: INSULIN ASPART 100 UNITS/ML 3 ML PEN SC SCH ×4 (07:52→20:49)
[2018-11-12] MEDS: ALLOPURINOL 100 MG TAB PO SCH ×2 (07:52→20:55)
[2018-11-12] MEDS: ASPIRIN 81 MG ECTAB PO SCH (07:53)
[2018-11-12] MEDS: NEPHROCAPS PO SCH (07:53)
[2018-11-12] MEDS: DOCUSATE SODIUM 100 MG CAP PO SCH ×2 (07:53→20:54)
[2018-11-12] MEDS: RANOLAZINE 500 MG ER TAB PO SCH ×2 (07:53→20:55)
[2018-11-12] MEDS: BUMETANIDE 1 MG TAB PO SCH ×2 (07:53→20:54)
[2018-11-12] MEDS: APIXABAN 2.5 MG TAB PO SCH ×2 (07:53→20:55)
[2018-11-12] MEDS: CALCIUM CARBONATE 500 MG CHEWABLE TAB PO SCH ×3 (07:53→18:15)
[2018-11-12] MEDS: FLUOCINONIDE 0.05% CR 15 GM TUBE EXT SCH (07:54)
[2018-11-12] MEDS: POLYETHYLENE (MIRALAX) 17 GM PACK PO SCH ×2 (07:54→10:03)
--- NOTE | 2018-11-12 09:01 | Cardiology Progress Note ---
Date of Service November 12, 2018 Assessment & Plan (1) CHF exacerbation: The patient was admitted with acute on chronic systolic CHF likely secondary to his noncompliance with medications and salt restriction. Hypervolemia being managed with hemodialysis. Agree with weaning dobutamine to off as it is not likely offer any benefit at this time. (2) Ischemic cardiomyopathy: Echocardiogram performed in August 2017 noted an ejection fraction of 25 -30% with multiple wall motion abnormalities. He also had evidence of moderate aortic stenosis. (3) CAD (coronary artery disease), [place] coronary artery: The patient has a history of LAD stenting x2. Currently is stable without complaints of angina pectoris. Could likely discontinue ranolazine to simplify his medical regimen. (4) Atrial fibrillation: The patient now on renal dose Eliquis at 2.5 mg twice daily for long-term anticoagulant. Heart rate adequately controlled. Subjective The patient is resting in bed without complaints of angina pectoris or dyspnea. Does note postoperative pain in the right shoulder. Slept well last evening according to his . Physical Exam 2 Vital Signs (Past 24 Hours): Last Vital Signs Temp 37 C 11/12/18 07:49 Pulse 73 11/12/18 07:49 Resp 20 11/12/18 07:49 BP 95/63 L 11/12/18 07:49 Pulse Ox 96 11/12/18 07:49 Physical Exam: In general is a well-developed well-nourished male seated at the bedside without complaints. HEENT exam is negative. Neck is supple with full carotid upstrokes. No carotid bruits. Jugular venous pressure elevated to the angle of the jaw. No thyromegaly. Cardiovascular exam reveals a regular rhythm with distant heart sounds. No obvious murmurs. No S3. Chest notes dressing across the right shoulder. Lungs note decrease breath sounds and rales at the bases bilaterally. Abdomen is obese without bruits. Chest reveals a palpable device in the left subclavicular region. Extremities reveal intact radial artery pulses bilaterally. 2+ pretibial edema is noted. Results & Data Laboratory Results Laboratory Results - last 24 hr 11/11/18 11/11/18 11/11/18 11:19 16:30 20:37 POC Glucose 177 H 186 H 121 H 11/12/18 07:31 POC Glucose 149 H Diagnostic Findings campus monitor notes ventricular pacing with an occasional PVC. _ (1) CHF exacerbation Heart failure type: systolic Qualified Code(s): I50.23 - Acute on chronic systolic (congestive) heart failure (2) Atrial fibrillation Atrial fibrillation type: permanent Qualified Code(s): I48.2 - Chronic atrial fibrillation
[2018-11-12] MEDS: ACETAMINOPHEN 325 MG TAB PO PRN ×2 (10:03→22:57)
[2018-11-12] MEDS: MAGNESIUM HYDROXIDE SUSP 30 ML UDC PO PRN ×2 (10:03→18:26)
[2018-11-12] MEDS: AMIODARONE 200 MG TAB PO SCH (11:54)
--- NOTE | 2018-11-12 14:00 | Nephrology Progress Note ---
Date of Service November 12, 2018 Assessment & Plan (1) Acute renal failure: Mr. Davidson is a 78-year-old gentlemen with chronic kidney disease secondary to cardiorenal syndrome ischemic cardiomyopathy, EF 25-30%, atrial fibrillation on chronic anticoagulation and diabetes without retinopathy or proteinuria admitted to the hospital with acute CHF exacerbation. Developed acute kidney injury and electrolyte abnormality. Started on dobutamine and high dose diuretics and has been on for 5 days without any significant improvement in volume status and renal function continues to decline with persistent electrolyte abnormality. Remain non-oliguric however no significant diuresis. He was started on dialysis via right IJ tunnel dialysis catheter on 11/09/2018 --recommend discontinue Luis catheter, discontinue dobutamine drip --continue on Thursday, , Thursday schedule. Aim for UF 2-3 liters as tolerated, continue to challenge to establish dry weight. --continue on calcitriol, Nephrocaps, --outpatient dialysis at [facility] -- continue Bumex 3 mg orally twice a day --dose medications for GFR less than 10 --left arm nephrology precaution Will follow (2) CKD (chronic kidney disease): (3) CHF exacerbation: (4) Aortic stenosis: (5) Hyperkalemia: (6) Secondary hyperparathyroidism (of renal origin): (7) Hyponatremia: Ramírez Quiñones was seen and examined in his room this morning with his at bedside. Had 4 hours dialysis yesterday with 2 liter UF, overall volume status slightly improved. denies any shortness of breath or chest pain. However, he continues to be significantly volume overloaded. Physical Exam 2 Vital Signs (Past 24 Hours): Last Vital Signs Temp 36.5 C 11/12/18 11:26 Pulse 71 11/12/18 11:26 Resp 20 11/12/18 11:26 BP 81/55 L 11/12/18 11:26 Pulse Ox 92 11/12/18 11:38 Constitutional: + acute distress, + ill appearing and + language barrier Respiratory: normal respiratory effort, lungs clear to auscultation Auscultation: + diminished lung sounds and + crackles Cardiovascular: Heart Sounds: normal S1 and normal S2 Extremities: + edema and + vascular access device Neurologic: moves all extremities and awake Psychiatric: A+Ox3, euthymic affect _ (1) CKD (chronic kidney disease) Chronic kidney disease stage: stage 4 (severe) Qualified Code(s): N18.4 - Chronic kidney disease, stage 4 (severe) (2) CHF exacerbation Heart failure type: systolic Qualified Code(s): I50.23 - Acute on chronic systolic (congestive) heart failure
[2018-11-12] MEDS: INSULIN GLARGINE SOLOSTAR 100 UNITS/ML 3 ML PEN SQ SCH (20:48)
--- NOTE | 2018-11-12 23:12 | Hospitalist Progress Note ---
Date of Service November 12, 2018 Assessment & Plan (1) Chronic combined systolic and diastolic CHF (congestive heart failure): acute exacerbation of chronic heart failure Patient was not responding to diuretics. Creatinine was rising and nephro was consulted. HD was planned yesterday. Patient had 3 days of dialysis. Patient will resume dialysis on Thursday. And then continue on a cycle of T-T-S. As patient is not making significant urine. Will remove ellsworth cath. This was placed initally to evaluate if patient was making urine and to see if documented urine output was being underestimated. Will titrate patient off dobutamine drip. (2) CKD (chronic kidney disease), stage III: Patient is now ESRD on HD T-T-S. (3) Atrial fibrillation: continue Amiodarone and Eliquis patient is paced on the monitor (4) Angina at rest: due to history of CAD minimal rise in troponin, not significant cannot interpret EKG due to paced rhythm continues to have intermittent pain today Ranexa was tried. do not plan on using it after discharge (5) Hypothyroidism: Maintains on Synthroid (6) Diabetes: diabetic diet basal bolus insulin monitor for hypoglycemia (7) Acute back pain: Patient's acute back pain is more down his right sacroiliac joint. He did have a CT scan of his abdomen to rule out renal stones pain better today, not complaining at all (8) Acute renal failure: Patient has Acute renal failure requiring HD. Patient is likely now End stage renal disease. (9) DVT prophylaxis: Eliquis therapy serves as his DVT prevention. Spent 25 minutes in management of patient. Subjective 78 yo male is a poor historian as he does not speak iranian well. He is a [place] speaker. He reports breathing better. He continues to have chronic chest pain but appears better controlled.. Family is at bedside and are updated. Respiratory: + dyspnea on exertion Cardiovascular: + chest pain, + dyspnea, + dyspnea on exertion, + orthopnea and + edema Physical Exam 2 Vital Signs (Past 24 Hours): Last Vital Signs Temp 36.4 C L 11/12/18 19:39 Pulse 71 11/12/18 19:39 Resp 18 11/12/18 19:39 BP 104/70 11/12/18 19:39 Pulse Ox 91 11/12/18 19:39 Physical Exam: Exam: Constitutional: WD/WN,is lying in bed, does not appear to be in distress vitals as above Eyes: PERRL, conjunctivae normal\ ENMT: external ear and nose normal, oropharynx normal Neck: trachea midline, no thyromegaly Respiratory: normal respiratory effort; no respiratory distress, normal rate Auscultation: + diminished lung sounds and + rales (bases) Cardiovascular: Rate/Rhythm: regular rate Heart Sounds: normal S1 and normal S2; no murmur Vessels: normal peripheral pulses; no JVD Extremities: + pedal edema Gastrointestinal (Abdomen): normal bowel sounds, soft, nontender, no hepatosplenomegaly Musculoskeletal: no cyanosis or clubbing, extremities motor strength 5/5 Skin: no rashes, warm and dry Neurologic: PERRL, EOMI, accommodation nl, no face palsy Psychiatric: A+Ox3, euthymic affect Lymphatic: no cervical or axillary lymphadenopathy _ (1) Atrial fibrillation Atrial fibrillation type: permanent Qualified Code(s): I48.2 - Chronic atrial fibrillation
[2018-11-13] MEDS: IPRATROPIUM BROMIDE/ALBUTEROL respimat INH INH SCH ×5 (00:50→23:56)
[2018-11-13] MEDS: LEVOTHYROXINE SODIUM 75 MCG TABLET PO SCH (06:50)
[2018-11-13] MEDS ORDERED: SODIUM CHLORIDE 0.9% 1000ML 1,000 ML IV PRN (08:00)
[2018-11-13] MEDS: DOCUSATE SODIUM 100 MG CAP PO SCH ×2 (08:21→20:23)
[2018-11-13] MEDS: NEPHROCAPS PO SCH (08:22)
[2018-11-13] MEDS: ALLOPURINOL 100 MG TAB PO SCH ×2 (08:23→20:22)
[2018-11-13] MEDS: CALCIUM CARBONATE 500 MG CHEWABLE TAB PO SCH ×3 (08:23→15:42)
[2018-11-13] MEDS: CALCITRIOL 0.25 MCG CAPSULE PO SCH (08:26)
[2018-11-13] MEDS: BUMETANIDE 1 MG TAB PO SCH ×2 (08:27→20:22)
[2018-11-13] MEDS: ASPIRIN 81 MG ECTAB PO SCH (08:29)
[2018-11-13] MEDS: APIXABAN 2.5 MG TAB PO SCH ×2 (08:30→20:23)
[2018-11-13] MEDS: INSULIN ASPART 100 UNITS/ML 3 ML PEN SC SCH ×4 (08:30→20:24)
[2018-11-13] MEDS: POLYETHYLENE (MIRALAX) 17 GM PACK PO SCH (08:31)
[2018-11-13] MEDS: RANOLAZINE 500 MG ER TAB PO SCH ×2 (08:32→20:22)
[2018-11-13 09:56] LABS: BUN Creatinine Ratio 21.3 (10-20); Calcium 8.9 mg/dl (8.5-10.1); Creatinine Clr Calc Pharmacy 19.5 ml/min; Est GFR (African American) 17.2; Est GFR (Non-African American) 14.9; Potassium 5.2 mmol/L (3.5-5.1)
--- NOTE | 2018-11-13 10:59 | Nephrology Progress Note ---
Date of Service November 13, 2018 Assessment & Plan (1) Acute renal failure: Mr. Davidson is a 78-year-old gentlemen w/ CKD due to cardiorenal syndrome, ischemic cardiomyopathy, EF 25-30%, atrial fibrillation on chronic anticoagulation and diabetes without retinopathy or proteinuria admitted to the hospital with acute CHF exacerbation. He developed acute kidney injury and electrolyte abnormality. Despite Dobutamine and high dose diuretics for 5 days his renal function failed to improve. He was started on dialysis via right IJ tunnel dialysis catheter on 11/09/2018 -- Will provide HD today and attempt 3L UF -- Continue on Calcitriol, Nephrocaps, -- Discharge planning consult to set up outpatient dialysis at [facility] -- Continue Bumex 3 mg orally twice a day and monitor UO -- Dose medications for GFR less than 10 -- Left arm nephrology precautions (2) CKD (chronic kidney disease): (3) CHF exacerbation: (4) Aortic stenosis: (5) Hyperkalemia: (6) Secondary hyperparathyroidism (of renal origin): (7) Hyponatremia: Subjective Mr. Davidson was seen and examined in his room this morning with his and an lease examiner at bedside. He denies any shortness of breath or chest pain. However, he continues to be significantly volume overloaded. Physical Exam 2 Vital Signs (Past 24 Hours): Last Vital Signs Temp 36.8 C 11/13/18 08:26 Pulse 76 11/13/18 08:26 Resp 18 11/13/18 08:26 BP 109/60 11/13/18 08:26 Pulse Ox 96 11/13/18 08:26 Constitutional: no acute distress Eyes: PERRL, conjunctivae normal, anicteric sclerae Neck: R IJ THC site w/ significant ecchymosis Respiratory: Diminished BS at the bases bilaterally Cardiovascular: RRR, no murmur, no edema Extremities: + edema (tense bilateral LE swelling) Gastrointestinal (Abdomen): normal bowel sounds, soft, nontender, no hepatosplenomegaly Results & Data Laboratory Results No labs today _ (1) CKD (chronic kidney disease) Chronic kidney disease stage: stage 4 (severe) Qualified Code(s): N18.4 - Chronic kidney disease, stage 4 (severe) (2) CHF exacerbation Heart failure type: systolic Qualified Code(s): I50.23 - Acute on chronic systolic (congestive) heart failure
[2018-11-13] MEDS: FLUOCINONIDE 0.05% CR 15 GM TUBE EXT SCH (14:00)
[2018-11-13] MEDS: AMIODARONE 200 MG TAB PO SCH (15:40)
[2018-11-13] MEDS ORDERED: ZOLPIDEM TARTRATE 5 MG TAB PO PRN (18:13)
[2018-11-13] MEDS: DOBUTamine / D5W 500 MG/250 ML BAG IV SCH (19:09)
[2018-11-13] MEDS: INSULIN GLARGINE SOLOSTAR 100 UNITS/ML 3 ML PEN SQ SCH (20:23)
[2018-11-14 05:24] LABS: Mean Corpuscular Hgb Conc 32.6 g/dL (32-36); Nucleated RBC # (auto) 0.08 K/uL (0-0); Nucleated RBC % (auto) 0.8 %
[2018-11-14] MEDS: IPRATROPIUM BROMIDE/ALBUTEROL respimat INH INH SCH ×3 (05:33→17:41)
[2018-11-14] MEDS: LEVOTHYROXINE SODIUM 75 MCG TABLET PO SCH (05:33)
[2018-11-14 05:34] LABS: Hematocrit (blood only) 44.8 % (42-52); Hemoglobin 14.6 g/dL (14.0-18.0); Mean Corpuscular Volume 91.4 fL (80-100); RDW Coefficient of Variation 18.3 % (11.5-14.5); White Blood Count 9.56 K/uL (4.8-10.8)
[2018-11-14] MEDS ORDERED: SODIUM CHLORIDE 0.65% NA SOLN 45 ML (OCEAN) PRN (05:47)
[2018-11-14 05:49] LABS: Platelet Count 36 K/uL (130-400)
[2018-11-14 05:57] LABS: BUN Creatinine Ratio 18.3 (10-20); Calcium 8.1 mg/dl (8.5-10.1); Creatinine Clr Calc Pharmacy 22.1 ml/min; Est GFR (African American) 20.6; Est GFR (Non-African American) 17.8; Potassium 4.5 mmol/L (3.5-5.1)
[2018-11-14] MEDS: INSULIN ASPART 100 UNITS/ML 3 ML PEN SC SCH ×4 (09:17→22:00)
[2018-11-14] MEDS: DOCUSATE SODIUM 100 MG CAP PO SCH ×2 (09:18→21:59)
[2018-11-14] MEDS: BUMETANIDE 1 MG TAB PO SCH ×2 (09:18→21:59)
[2018-11-14] MEDS: NEPHROCAPS PO SCH (09:18)
[2018-11-14] MEDS: RANOLAZINE 500 MG ER TAB PO SCH (09:18)
[2018-11-14] MEDS: ASPIRIN 81 MG ECTAB PO SCH (09:19)
[2018-11-14] MEDS: CALCITRIOL 0.25 MCG CAPSULE PO SCH (09:19)
[2018-11-14] MEDS: CALCIUM CARBONATE 500 MG CHEWABLE TAB PO SCH ×3 (09:19→17:42)
[2018-11-14] MEDS: APIXABAN 2.5 MG TAB PO SCH ×2 (09:19→21:59)
[2018-11-14] MEDS: ALLOPURINOL 100 MG TAB PO SCH ×2 (09:20→21:59)
[2018-11-14] MEDS: FLUOCINONIDE 0.05% CR 15 GM TUBE EXT SCH (09:49)
[2018-11-14] MEDS: POLYETHYLENE (MIRALAX) 17 GM PACK PO SCH (09:49)
--- NOTE | 2018-11-14 10:16 | Nephrology Progress Note ---
Date of Service November 14, 2018 Assessment & Plan (1) Acute renal failure: Mr. Davidson is a 78-year-old gentlemen w/ CKD due to cardiorenal syndrome, ischemic cardiomyopathy, EF 25-30%, atrial fibrillation on chronic anticoagulation and diabetes without retinopathy or proteinuria admitted to the hospital with acute CHF exacerbation. He developed acute kidney injury and electrolyte abnormality. Despite Dobutamine and high dose diuretics for 5 days his renal function failed to improve. He was started on dialysis via right IJ tunnel dialysis catheter on 11/09/2018 -- Will provide HD tomorrow for continued UF -- Continue on Calcitriol, Nephrocaps -- Patient is now oliguric. Will stop diuretics -- Discharge planning consult to set up outpatient dialysis at [facility] -- Dose medications for GFR less than 10 -- Left arm nephrology precautions (2) CKD (chronic kidney disease): (3) CHF exacerbation: (4) Aortic stenosis: (5) Hyperkalemia: (6) Secondary hyperparathyroidism (of renal origin): (7) Hyponatremia: Subjective Mr. Davidson was seen and examined in his room this morning. His son-in-law was present at bedside and acted as seam closer. He denies any shortness of breath or chest pain. He was dialyzed yesterday for 3 L UF. There were no complications. He still has significant B LE swelling Physical Exam 2 Vital Signs (Past 24 Hours): Last Vital Signs Temp 36.9 C 11/14/18 08:00 Pulse 70 11/14/18 08:00 Resp 18 11/14/18 08:00 BP 102/60 11/14/18 08:00 Pulse Ox 98 11/14/18 08:00 Constitutional: no acute distress Eyes: PERRL, conjunctivae normal, anicteric sclerae Cardiovascular: RRR, no murmur, no edema Extremities: + edema (tense bilateral LE swelling) Gastrointestinal (Abdomen): normal bowel sounds, soft, nontender, no hepatosplenomegaly Results & Data Laboratory Results Laboratory Tests 11/14/18 11/14/18 05:14 05:14 WBC 9.56 Hgb 14.6 Hct 44.8 Plt Count 36 L Sodium 127 L Potassium 4.5 Chloride 92 L Carbon Dioxide 27 BUN 59 H Creatinine 3.21 H D Glucose 75 _ (1) CKD (chronic kidney disease) Chronic kidney disease stage: stage 4 (severe) Qualified Code(s): N18.4 - Chronic kidney disease, stage 4 (severe) (2) CHF exacerbation Heart failure type: systolic Qualified Code(s): I50.23 - Acute on chronic systolic (congestive) heart failure
[2018-11-14] MEDS ORDERED: SODIUM CHLORIDE 0.9% 1000ML 1,000 ML IV PRN (10:18)
--- NOTE | 2018-11-14 10:26 | Hospitalist Progress Note ---
Date of Service November 13, 2018 Assessment & Plan (1) Chronic combined systolic and diastolic CHF (congestive heart failure): acute exacerbation of chronic heart failure Patient was not responding to diuretics. Creatinine was rising and nephro was consulted. HD was planned yesterday. Patient had 3 days of dialysis. Today is his fourth day of dialysis. Patient had another set of dialysis today. And then continue on a cycle of T-T-S. Removed ellsworth on 11/12 This was placed initially to evaluate if patient was making urine and to see if documented urine output was being underestimated. Off ellsworth and dobutamine Patient is getting close for discharge. Will obtain 2 step. Patient likely will be discharged home. (2) CKD (chronic kidney disease), stage III: Patient is now ESRD on HD T-T-S. (3) Atrial fibrillation: continue Amiodarone and Eliquis patient is paced on the monitor (4) Angina at rest: due to history of CAD minimal rise in troponin, not significant cannot interpret EKG due to paced rhythm continues to have intermittent pain today Ranexa was tried. do not plan on using it after discharge (5) Hypothyroidism: Maintains on Synthroid (6) Diabetes: diabetic diet basal bolus insulin monitor for hypoglycemia (7) Acute back pain: Patient's acute back pain is more down his right sacroiliac joint. He did have a CT scan of his abdomen to rule out renal stones pain better today, not complaining at all (8) Acute renal failure: Patient has Acute renal failure requiring HD. Patient is likely now End stage renal disease. (9) DVT prophylaxis: Eliquis therapy serves as his DVT prevention. Spent 25 minutes in management of patient. Subjective 78 yo male is a poor historian as he does not speak irish well. He is a [place] speaker. He reports breathing better. He reports that his chest pain is also better. Family is at bedside and are updated. Respiratory: + dyspnea on exertion Cardiovascular: + chest pain, + dyspnea, + dyspnea on exertion, + orthopnea and + edema Physical Exam 2 Vital Signs (Past 24 Hours): Last Vital Signs Temp 36.7 C 11/13/18 15:20 Pulse 79 11/13/18 15:20 Resp 18 11/13/18 08:20 BP 99/68 11/13/18 15:20 Pulse Ox 98 11/13/18 15:20 Physical Exam: Constitutional: WD/WN,is lying in bed, does not appear to be in distress vitals as above Eyes: PERRL, conjunctivae normal ENMT: external ear and nose normal, oropharynx normal Neck: trachea midline, no thyromegaly Respiratory: normal respiratory effort; no respiratory distress, normal rate Auscultation: + diminished lung sounds and + rales (bases) Cardiovascular: Rate/Rhythm: regular rate Heart Sounds: normal S1 and normal S2; no murmur Vessels: normal peripheral pulses; no JVD Extremities: + pedal edema Gastrointestinal (Abdomen): normal bowel sounds, soft, nontender, no hepatosplenomegaly Musculoskeletal: no cyanosis or clubbing, extremities motor strength 5/5 Skin: no rashes, warm and dry Neurologic: PERRL, EOMI, accommodation nl, no face palsy Psychiatric: A+Ox3, euthymic affect Lymphatic: no cervical or axillary lymphadenopathy _ (1) Atrial fibrillation Atrial fibrillation type: permanent Qualified Code(s): I48.2 - Chronic atrial fibrillation
--- NOTE | 2018-11-14 10:44 | Hospitalist Progress Note ---
Date of Service November 14, 2018 Assessment & Plan (1) Chronic combined systolic and diastolic CHF (congestive heart failure): acute exacerbation of chronic heart failure Patient was not responding to diuretics. Creatinine was rising and nephro was consulted for HD to remove his fluids as he was not responding to diuretics. Patient was deemed to require hemodialysis and has received this past week - AND Thursday Patient has improved significantly and is now on room air. PT was done and patient tolerated it well. Removed ellsworth on 11/12 This was placed initially to evaluate if patient was making urine and to see if documented urine output was being underestimated. Patient is off dobutamine drip. Patient is getting close for discharge. Recommend ambulating patient. If patient O2 sats frop, may consider a 2 step. Nephro recommended HD on Thursday. Will keep patient another day and transfer him to the medical floor. (2) CKD (chronic kidney disease), stage III: Plan inititally was ESRD on HD T-- at discharge. However, patient will get HD on Thursday. Discharge plan dependent on nephro. (3) Atrial fibrillation: continue Amiodarone and Eliquis patient is paced on the monitor (4) Angina at rest: Chest pain has subsided on 11/14 Ranexa was tried. do not plan on using it after discharge (5) Hypothyroidism: Maintains on Synthroid (6) Diabetes: diabetic diet basal bolus insulin monitor for hypoglycemia (7) Acute back pain: Patient's acute back pain is more down his right sacroiliac joint. He did have a CT scan of his abdomen to rule out renal stones pain better today, not complaining at all (8) Acute renal failure: Patient has Acute renal failure requiring HD. Patient is likely now End stage renal disease. (9) DVT prophylaxis: Eliquis therapy serves as his DVT prevention. Spent 25 minutes in management of patient. Subjective 78 yo male is a poor historian as he does not speak armenian well. He is a [place] speaker. Patient states he no longer has chest pain or shortness of breath. Respiratory: + dyspnea on exertion Cardiovascular: + chest pain, + dyspnea, + dyspnea on exertion, + orthopnea and + edema Physical Exam 2 Vital Signs (Past 24 Hours): Last Vital Signs Temp 36.9 C 11/14/18 08:00 Pulse 70 11/14/18 08:00 Resp 18 11/14/18 08:00 BP 102/60 11/14/18 08:00 Pulse Ox 98 11/14/18 08:00 Physical Exam: Constitutional: Patient is sitting in his chair, with no distress. Patient is now on room air. Eyes: PERRL, conjunctivae normal ENMT: external ear and nose normal, oropharynx normal Neck: trachea midline, no thyromegaly Respiratory: normal respiratory effort; no respiratory distress, normal rate Auscultation: + normal breath sounds, with minimal rales Cardiovascular: Rate/Rhythm: regular rate Heart Sounds: normal S1 and normal S2; no murmur Vessels: normal peripheral pulses; no JVD Extremities: + pedal edema Gastrointestinal (Abdomen): normal bowel sounds, soft, nontender, no hepatosplenomegaly Musculoskeletal: no cyanosis or clubbing, extremities motor strength 5/5 Skin: no rashes, warm and dry Neurologic: PERRL, EOMI, accommodation nl, no face palsy Psychiatric: A+Ox3, euthymic affect Lymphatic: no cervical or axillary lymphadenopathy _ (1) Atrial fibrillation Atrial fibrillation type: permanent Qualified Code(s): I48.2 - Chronic atrial fibrillation
--- NOTE | 2018-11-14 11:29 | XRay Report ---
XR chest 1V portable HISTORY: Short of breath. COMPARISON: Chest 11/08/2018. FINDINGS: There are low lung volumes. Mild interstitial pulmonary edema and trace bilateral pleural e ffusions have improved. Left-sided pacemaker is again noted. Right jugular catheter terminates at the SVC. Bibasilar densities persist. The heart remains enlarged. IMPRESSION: 1. Interval improvement in the mild interstitial pulmonary edema and trace pleural effusions. 2. Bibasilar densities and cardiomegaly persist. Electronically signed by: Robert Gamez M.D. 11/14/2018 11:28 AM
[2018-11-14] MEDS: AMIODARONE 200 MG TAB PO SCH (12:59)
[2018-11-14] MEDS: ACETAMINOPHEN 325 MG TAB PO PRN (19:14)
[2018-11-14] MEDS: INSULIN GLARGINE SOLOSTAR 100 UNITS/ML 3 ML PEN SQ SCH (21:59)
[2018-11-14] MEDS: SIMVASTATIN 40 MG TAB PO SCH (23:04)
[2018-11-15] MEDS: IPRATROPIUM BROMIDE/ALBUTEROL respimat INH INH SCH ×3 (01:43→15:14)
[2018-11-15] MEDS ORDERED: EPOETIN ALFA 10,000 UNITS/ML VIAL IV ONE (06:00)
[2018-11-15] MEDS: LEVOTHYROXINE SODIUM 75 MCG TABLET PO SCH (06:07)
--- NOTE | 2018-11-15 08:30 | Communication Note ---
Date of Service: November 15, 2018 No further vascular intervention planned at this time. Please call if needed.
[2018-11-15] MEDS: INSULIN ASPART 100 UNITS/ML 3 ML PEN SC SCH ×2 (08:46→15:15)
[2018-11-15] MEDS: NEPHROCAPS PO SCH (08:47)
[2018-11-15] MEDS: CALCIUM CARBONATE 500 MG CHEWABLE TAB PO SCH ×2 (08:47→15:13)
[2018-11-15] MEDS: POLYETHYLENE (MIRALAX) 17 GM PACK PO SCH (08:48)
[2018-11-15] MEDS: FLUOCINONIDE 0.05% CR 15 GM TUBE EXT SCH (08:49)
--- NOTE | 2018-11-15 10:00 | Hospitalist Progress Note ---
Date of Service November 15, 2018 Assessment & Plan (1) Chronic combined systolic and diastolic CHF (congestive heart failure): acute exacerbation of chronic heart failure Patient was not responding to diuretics. Creatinine was rising and nephro was consulted for HD to remove his fluids as he was not responding to diuretics. Patient was deemed to require hemodialysis and has received this past week T-- AND Thursday Patient has improved significantly and is now on room air. Recommend ambulating patient. consider a 2 step oxymetry test. Nephro recommended HD on Wednesday 11/15. (2) CKD (chronic kidney disease), stage III: Plan inititally was ESRD on HD T-T- at discharge. However, patient will get HD on Thursday. Discharge plan dependent on nephro. (3) Atrial fibrillation: continue Amiodarone and Eliquis (4) Angina at rest: Chest pain has subsided on 11/14 Ranexa was tried do not plan on using it after discharge (5) Hypothyroidism: clinically stable on Synthroid (6) Diabetes: diabetic diet basal bolus insulin monitor for hypoglycemia (7) Acute back pain: Patient's acute back pain is more down his right sacroiliac joint. He did have a CT scan of his abdomen to rule out renal stones, no pathology noted pain has resolved (8) Acute renal failure: Patient has Acute renal failure requiring HD. Patient is likely now End stage renal disease. (9) DVT prophylaxis: Eliquis therapy serves as his DVT prevention. Physical Exam 2 Vital Signs (Past 24 Hours): Last Vital Signs Temp 36.0 C L 11/15/18 07:32 Pulse 74 11/15/18 07:32 Resp 18 11/15/18 07:32 BP 106/66 11/15/18 07:32 Pulse Ox 90 11/15/18 07:32 _ (1) Atrial fibrillation Atrial fibrillation type: permanent Qualified Code(s): I48.2 - Chronic atrial fibrillation
--- NOTE | 2018-11-15 10:19 | Nephrology Progress Note ---
Date of Service November 15, 2018 Assessment & Plan (1) Acute renal failure: Mr. Davidson is a 78-year-old gentlemen w/ CKD due to cardiorenal syndrome, ischemic cardiomyopathy, EF 25-30%, atrial fibrillation on chronic anticoagulation and diabetes without retinopathy or proteinuria admitted to the hospital with acute CHF exacerbation. He developed acute kidney injury and electrolyte abnormality. Despite Dobutamine and high dose diuretics his renal function failed to improve. He was started on dialysis via right IJ tunnel dialysis catheter on 11/09/2018 -- HD orders were discussed with dialysis nurse for treatment today -- UF goal 3 L as tolerated -- Continue on Calcitriol, Nephrocaps -- Patient is now oliguric. Will stop diuretics -- Discharge planning consult to set up outpatient dialysis at [facility] -- Dose medications for GFR less than 10 -- Left arm nephrology precautions (2) CKD (chronic kidney disease): (3) CHF exacerbation: (4) Aortic stenosis: (5) Hyperkalemia: (6) Secondary hyperparathyroidism (of renal origin): (7) Hyponatremia: Subjective Mr. Davidson was seen and examined. He is tolerating HD well. Edema improving. He is breathing comfortably. He denies chest pain or palpitations. He denies lightheadedness or dizziness. Review of Systems All systems reviewed & are unremarkable except as noted in HPI & below Physical Exam 2 Vital Signs (Past 24 Hours): Last Vital Signs Temp 36.0 C L 11/15/18 07:32 Pulse 74 11/15/18 07:32 Resp 18 11/15/18 07:32 BP 106/66 11/15/18 07:32 Pulse Ox 90 11/15/18 07:32 Constitutional: + ill appearing and + language barrier; no acute distress Eyes: PERRL, conjunctivae normal, anicteric sclerae ENMT: external ear and nose normal, oropharynx normal Neck: normal visual inspection Thyroid: normal thyroid Respiratory: normal respiratory effort, lungs clear to auscultation Auscultation: + diminished lung sounds and + crackles Cardiovascular: RRR, no murmur, no edema Heart Sounds: normal S1 and normal S2 Extremities: + edema (tense bilateral LE swelling) and + vascular access device Gastrointestinal (Abdomen): normal bowel sounds, soft, nontender, no hepatosplenomegaly Musculoskeletal: no cyanosis or clubbing, extremities motor strength 5/5 Skin: no rashes, warm and dry Neurologic: moves all extremities and awake Psychiatric: A+Ox3, euthymic affect Results & Data Laboratory Results Laboratory Results - last 24 hr 11/14/18 11/14/18 11/14/18 12:22 16:46 20:27 POC Glucose 162 H 141 H 161 H 11/15/18 07:46 POC Glucose 121 H _ (1) CKD (chronic kidney disease) Chronic kidney disease stage: stage 4 (severe) Qualified Code(s): N18.4 - Chronic kidney disease, stage 4 (severe) (2) CHF exacerbation Heart failure type: systolic Qualified Code(s): I50.23 - Acute on chronic systolic (congestive) heart failure
[2018-11-15] MEDS: BUMETANIDE 1 MG TAB PO SCH (15:06)
[2018-11-15] MEDS: ALLOPURINOL 100 MG TAB PO SCH (15:06)
[2018-11-15] MEDS: AMIODARONE 200 MG TAB PO SCH (15:07)
[2018-11-15] MEDS: CALCITRIOL 0.25 MCG CAPSULE PO SCH (15:08)
[2018-11-15] MEDS: ASPIRIN 81 MG ECTAB PO SCH (15:09)
[2018-11-15] MEDS: APIXABAN 2.5 MG TAB PO SCH (15:09)
[2018-11-15] MEDS: DOCUSATE SODIUM 100 MG CAP PO SCH (15:12)
--- NOTE | 2018-11-15 16:14 | Discharge Summary ---
Date of Service November 15, 2018 Admission HPI Per Admitting Provider Mr. Davidson is a 77-year-old Finnish speaking male with a medical history significant for coronary artery disease, ischemic cardiomyopathy (EF 25-30%), chronic systolic CHF, S/P biventricular ICD implantation, ventricular tachycardia, chronic atrial fibrillation, hypertension, hypercholesterolemia, moderate /MR, insulin-dependent diabetes, and chronic kidney disease stage 4 He presents to the emergency department today markedly dyspneic short of breath with increased swelling of his lower legs. 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 He denies any discretion of food or medications. He does provide his medicine list which includes Bumex and metolazone. The emergency room doctor thought that they were increasing Bumex doses as an outpatient although the patient did not corroborate this. Patient had no chest pain associated with it and feels he has had reasonable urine output Principal Diagnosis acute on chronic combined heart failure renal replacement therapy to manage fluid volume Discharge Exam The patient appeared chronically ill Vital signs as documented. Head exam is unremarkable. normocephalic, atraumatic Neck is with minimal jugular venous distension, thyromegaly, or lymphademopathy Lungs are clear to auscultation and percussion. But clear without rales Cardiac exam reveals Rhythm is regular. First and second heart sounds normal. Abdominal exam reveals normal bowel sounds, no masses, no organomegaly Extremities are still moderately edematous and both pedal pulses are present Neurologic exam is A&Ox3, no focal deficits, strength is equal bilateral Psychologically seems neither anxious or depressed Skin is warm Dry with some bruises to the lower extremities Discharge Data Allergies Allergy/AdvReac Type Severity Reaction Status Date / Time No Known Allergies Allergy Verified 11/05/18 10:09 Consultations 11/05/18 10:25 ED Decision to Admit Stat 11/05/18 13:03 Consult Cardiology Routine Consult Case Management - Discharge Planning Routine 11/09/18 07:37 Consult Nephrology Routine 11/09/18 10:03 Consult Vascular Surgery Routine 11/09/18 11:13 Consult Case Management - Discharge Planning Routine Procedures Performed Operation Date: 11/09/18 11:30 Actual Procedures p Perm Catheter Placement Right Jugular Vein, Ultrasound Localization of Right Jugular Vein, Fluoroscopy for Comfirmation(Right) - Will Rajput MD Ordered Studies 11/05/18 09:28 CT abd pelvis wo con Stat 11/09/18 11:44 EV cvc 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 Creatinine was rising and nephro was consulted for HD to remove his fluids as he was not responding to diuretics. Patient was deemed to require hemodialysis and has received this past week AND Thursday Patient has improved significantly Nephro recommended HD on Wednesday 11/15.and will transition to Sat as an outpt remains on some Bumex therapy orally (2) CKD (chronic kidney disease), stage III: Plan inititally was ESRD on HD at discharge. (3) Atrial fibrillation: continue Amiodarone and Eliquis (4) Angina at rest: Chest pain has subsided on 11/14 Ranexa was tried do not plan on using it after discharge (5) Hypothyroidism: clinically stable on Synthroid (6) Diabetes: diabetic diet basal bolus insulin will discharge on short acting insulin in place of 70/30 (7) Acute back pain: Patient's acute back pain is more down his right sacroiliac joint. He did have a CT scan of his abdomen to rule out renal stones, no pathology noted pain has resolved (8) Acute renal failure: Patient has Acute renal failure requiring HD. Patient is likely now End stage renal disease. Total Time Total Time Spent Total Time Spent (In Minutes): greater than 30 minutes were required to prepare discharge Discharge Plan Discharge Items Patient Disposition: Home - Home Health Services Reason For Visit: ACUTE COMBINED HEART FAILURE Discharge Diagnosis: heart failure, improve with dialysis Discharge Goals: Decrease discomfort, Diagnostic testing and Improve disease control Activity: Resume your previous activity Non-emergency contact: Primary Care Provider Call non-emergency contact if: you have any medication questions Diet: Dialysis Renal and Low Sodium (2gm) Addtl Provider Instructions: Please keep your dialysis treatment at 1030 in the [facility] clinic on 11/16 Please follow up with your heart doctor Prescriptions: New apixaban [Eliquis] 2.5 mg Tablet 2.5 mg PO BID Qty: 60 RF: 3 B complex with C#20-folic acid [Renal Caps] 1 mg Capsule 1 cap PO QAM Qty: 90 RF: 3 insulin aspart U-100 [Novolog Flexpen U-100 Insulin] 100 unit/mL Insulin Pen 1 units SC ACHS Qty: 1 RF: 3 Continue amiodarone 200 mg Tablet 200 mg PO QDL RF: 0 allopurinol 100 mg Tablet 100 mg PO BID RF: 0 aspirin [Aspirin Low Dose] 81 mg Tablet,Delayed Release (Dr/Ec) 81 mg PO QAM RF: 0 simvastatin 40 mg Tablet 40 mg PO HS RF: 0 levothyroxine 75 mcg Tablet 75 mcg PO QAM RF: 0 calcitriol 0.5 mcg Capsule 0.5 mcg PO QAM RF: 0 zolpidem 5 mg Tablet 1.25 mg PO DIRECTED PRN (Reason: Insomnia) RF: 0 insulin glargine [Basaglar KwikPen U-100 Insulin] 100 unit/mL (3 mL) Insulin Pen 35 unit SUBCUT HS RF: 0 potassium chloride 20 mEq Tablet Extended Release 40 meq PO BID RF: 0 ipratropium-albuterol [Combivent Respimat] 20-100 mcg/actuation Mist 1 puff INHALATION Q6H RF: 0 polyethylene glycol 3350 [Miralax] 17 gram Powder In Packet 17 g PO DAILY Qty: 30 RF: 0 flaxseed oil 1,000 mg Capsule 1,000 mg PO TID RF: 0 nitroglycerin 0.4 mg Tablet, Sublingual 1 tab Sublingual DAILY PRN (Reason: Chest Pain) RF: 0 fluocinonide 0.05 % cream 1 appln TOP DAILY Qty: 60 RF: 0 docusate sodium [Colace] 100 mg Capsule 100 mg PO BID RF: 0 Changed bumetanide 2 mg Tablet 2 mg PO BID Qty: 60 RF: 4 Discontinued bumetanide 2 mg Tablet 3 mg PO QAM RF: 0 insulin asp prt-insulin aspart [Novolog Mix 70-30FlexPen U-100] 100 unit/mL ( 70-30) Insulin Pen 20 - 25 unit SUBCUT DAILY RF: 0 apixaban [Eliquis] 5 mg Tablet 5 mg PO BID RF: 0 metolazone 2.5 mg Tablet 1 tab PO 2XWK RF: 0 bumetanide 2 mg Tablet 2 mg PO UD RF: 0 potassium chloride 20 mEq Tablet Extended Release 20 meq PO UD RF: 0 Stand-Alone Forms: [facility] Discharge Orders: Discharge Order (Routine); Ordered 11/15/18 Ordered By: Matt Dobson Admission Data Admit Date/Time: 11/05/18 11:03 Attending Provider: Matt Dobson Admit Provider: Matt Dobson Primary Care Provider: Noel Reid Other Providers: Matt Dobson ; Zackery Birmingham ; Mary Lockwood Eugene J ; Jacques Harrell Service: Medical Other Interventions: Discharge Summary Assessment (RN) Last Done: 11/15/18 15:00
== END 2018-11-15 17:47 | disposition home health service (06) | DRG 291 ==
LOC: ED 08:31 → 2S 11:03 → SUATTDRO 11:03 → 2S 12:34 → 4W 11-14 13:21

== ENCOUNTER 2018-11-27 15:37 | Inpatient (IN) ==
[2018-11-27] MEDS ORDERED: VANCOMYCIN CONSULT ACTIVE PRN ×2 (16:25→21:31)
[2018-11-27] MEDS ORDERED: PIPERACILLIN/TAZOBACTAM 4.5 GM/120 ML BAG IV STA (16:25)
[2018-11-27] MEDS ORDERED: VANCOMYCIN HCL 2,000 MG in SODIUM CHLORIDE 0.9% 500 ML IV STA (16:25)
[2018-11-27] MEDS ORDERED: ACETAMINOPHEN 500 MG TAB PO STA (16:25)
[2018-11-27] MEDS ORDERED: SODIUM CHLORIDE 0.9% 1000ML 1,000 ML IV SCH (16:30)
[2018-11-27 16:50] LABS: Hematocrit (blood only) 39.6 % (42-52); Hemoglobin 12.3 g/dL (14.0-18.0); Mean Corpuscular Hgb Conc 31.1 g/dL (32-36); Mean Corpuscular Volume 94.3 fL (80-100); RDW Coefficient of Variation 20.4 % (11.5-14.5); RDW Standard Deviation 69.9 fL (36.4-46.3); White Blood Count 9.52 K/uL (4.8-10.8)
[2018-11-27 16:57] LABS: Albumin Level 2.4 gm/dl (3.4-5.0); BUN Creatinine Ratio 15.4 (10-20); Creatinine Clr Calc Pharmacy 32.6 ml/min; Est GFR (African American) 33.2; Est GFR (Non-African American) 28.7
[2018-11-27 17:00] LABS: Albumin Globulin Ratio 0.6 (0.9-2); Bilirubin,Total 2.3 mg/dl (0.2-1); Total Protein 6.4 gm/dl (6.4-8.2)
[2018-11-27 17:19] LABS: Troponin I 0.209 ng/ml (0-0.045)
[2018-11-27 17:23] LABS: Mean Platelet Volume 10.3 fL (7.4-10.4); Platelet Count 90 K/uL (130-400)
[2018-11-27] MEDS ORDERED: NovoLIN-R INSULIN PER UNIT CHARGE SC STA (17:23)
[2018-11-27] MEDS ORDERED: ASPIRIN 81 MG CHEW PO STA (17:23)
[2018-11-27 17:25] LABS: Anisocytosis Present; Basophils # (auto) 0.01 K/uL (0-0.2); Basophils % (auto) 0.1 %; Immature Granulocytes # (auto) 0.19 K/uL (0.00-0.02); Lymphocytes # (auto) 0.39 K/uL (1.2-3.4); Lymphocytes % (auto) 4.1 %; Monocytes # (auto) 0.51 K/uL (0.11-0.59); Monocytes % (auto) 5.4 %; Neutrophils # (auto) 8.42 K/uL (1.4-6.5); Neutrophils % (auto) 88.4 %; Polychromasia 1+
--- NOTE | 2018-11-27 17:59 | History & Physical Report ---
Date of Service November 27, 2018 Assessment & Plan (1) Septic shock: (2) Cellulitis: - Possibly going into septic shock - ICU consulted - discussed with Dr. Tyler at bedside. - Pt with low BP around 100s systolically during my initial visit, then BP worsened into the 60s. Pt is being volume resuscitated with 500 ml bolus and has 150 ml running now. Asked for pt to be placed in Trendelenburg. - ICU consulted for possible central line placement with needs for pressors since cannot volume resuscitate with poor EF. BP slightly improved into the 70s which in trendelenburg. - Was placed on oximask from 2 L via NC and sating in low 90s. - CXR stat is in process - WBC slightly elevated at 9.2, afebrile. - RLE appears to be worse than the left with ecchymosis as well as new fluid blisters - Will continue vancomycin and zosyn IV - Wound consult - Check MRSA swab - Follow BCx x 2 (3) Elevated troponin: - Admit to tele for observation for r/o - Trend cardiac biomarkers, initial set was slightly elevated at 0.209, previously around 0.06-0.07 - EKG reviewed as above - Check 2 D echo ordered - PT/OT consulted - Pt reports having musculoskeletal pain in the past, and is tender with palpation over the chest wall so possibly partially contributing. (4) CAD (coronary artery disease), [place] coronary artery: - Cont aspirin 81 mg, amiodarone 200 mg, bumex 2 mg PO BID, metolazone 2.5 mg 1x per week, Coreg 6.25 mg PO BID starting on 11/28 with am meds pending course tonight. 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 (13) Atrial fibrillation: - Continue on eliquis 2.5 mg BID (14) Hypothyroidism: - Cont levothyroxine 75 mcg daily (15) CKD (chronic kidney disease): - Stage IV, on HD T-Th-Sat - only got 2.5 hours compared to routine 4 hours normally today due to generalized ill feeling and worsening lower extremity pain, chest pain. - Nephro consulted - may need extra dialysis session in AM. - Cr. 2.16 upon admission, monitor with daily prp (16) DVT prophylaxis: -teds, scds, continue eliquis Time spent between reviewing chart, discussion with family, direct patient care , road consultant consultation and nephrology consultation and coordination of care was approximately 125 minutes. History of Present Illness Chief Complaint: Chest pain Primary Care Provider: Noel Reid MD This is a 78 yo M with PMHx of CAD, ischemic cardiomyopathy (EF 25-30%), chronic systolic CHF with EF of 25-30%, S/P biventricular ICD implantation, ventricular tachycardia, chronic atrial fibrillation, hypertension, hypercholesterolemia, moderate /MR, insulin-dependent diabetes, and CKD stage 5 on HD. Pt wifes is present and acts a translater, her granddaughter was also on the phone an assisted with translation as the pt is primarily Urkrainian speaking. He developed chills, sweats, fever as well as generalized malaise last evening around 9pm. He did take tylenol which helped a little. This morning the patient presented for routine HD and was unable to tolerate the treatment more than 2.5 hours due to worsening lower leg pain on both sides. notes he has had increasing edema in BLE and had several fluid blisters appear within the last day, these are covered with a "green radha 1% alcohol antiseptic" which is a [place]ian home remedy. Allergies Allergy/AdvReac Type Severity Reaction Status Date / Time No Known Allergies Allergy Verified 11/18/18 09:32 Home Medications Home Medications Medication Instructions Recorded Confirmed Type allopurinol 100 mg PO BID 07/13/18 11/27/18 History amiodarone 200 mg PO QDL 07/13/18 11/27/18 History aspirin [Aspirin Low Dose] 81 mg PO UD 07/13/18 11/27/18 History calcitriol 0.5 mcg PO QAM 07/13/18 11/27/18 History insulin glargine [Basaglar KwikPen 35 unit SUBCUT HS 07/13/18 11/27/18 History U-100 Insulin] levothyroxine 75 mcg PO QAM 07/13/18 11/27/18 History potassium chloride 40 meq PO BID 07/13/18 11/27/18 History simvastatin 40 mg PO HS 07/13/18 11/27/18 History zolpidem 1.25 mg PO DIRECTED PRN 07/13/18 11/27/18 History polyethylene glycol 3350 [Miralax] 17 g PO DAILY #30 ea 07/15/18 11/27/18 Rx flaxseed oil 1,000 mg PO TID 10/05/18 11/27/18 History nitroglycerin 1 tab SUBLINGUAL DAILY PRN 10/05/18 11/27/18 History docusate sodium [Colace] 100 mg PO BID 11/05/18 11/27/18 History B complex with C#20-folic acid 1 cap PO QAM #90 cap 11/15/18 11/27/18 Rx [Renal Caps] apixaban [Eliquis] 2.5 mg PO BID #60 tab 11/15/18 11/27/18 Rx bumetanide 2 mg PO BID #60 tab 11/15/18 11/27/18 Rx insulin aspart U-100 [Novolog 1 units SC ACHS #1 pen 11/15/18 11/27/18 Rx Flexpen U-100 Insulin] metolazone 2.5 mg PO WK 11/18/18 11/27/18 History carvedilol 6.25 mg PO BIDM 11/27/18 11/27/18 History fluocinonide 1 applic TOPICAL UD 11/27/18 11/27/18 History ipratropium-albuterol [Combivent 1 puff INHALATION Q6 PRN 11/27/18 11/27/18 History Respimat] Past Med/Surg History Medical History Septic shock Cellulitis Elevated troponin Diabetes CAD (coronary artery disease), [place] coronary artery Atrial fibrillation (Chronic) Hypothyroidism HLD (hyperlipidemia) (Chronic) Aortic stenosis (Chronic) GERD (gastroesophageal reflux disease) (Chronic) Chronic combined systolic and diastolic CHF (congestive heart failure) (Chronic) CKD (chronic kidney disease), stage III (Chronic) Ischemic cardiomyopathy (Chronic) Pulmonary hypertension (Chronic) Arthritis (Chronic) Diabetes Surgical History S/P cardiac pacemaker procedure Family History Other Family history non-contributory Social History marital status: Current Living Situation: Spouse Feels Safe at Home: Yes Smoking Status: Never smoker Second Hand Exposure: No Hx Alcohol Use: No Hx Substance Use: No Beliefs That Will Affect Care: None Preferred Language: Colombian Review of Systems Constitutional: + fever, + chills, + sweats and + fatigue Eyes: no diplopia and no worsening vision Ear, Nose, Mouth, Throat: no dizziness, no nasal discharge, no facial pain and no sore throat Respiratory: no cough, no dyspnea and no wheezing Cardiovascular: + chest pain (central and moving to the left, constant, rated 6/ 10), + dyspnea at rest and + edema; no chest pain with activity, no palpitations , no lightheadedness and no syncope Gastrointestinal: no nausea, no vomiting and no constipation no diarrhea Genitourinary (Male): no dysuria, no urinary frequency, no urinary hesitancy and no hematuria Musculoskeletal: + back pain (chronic, lower) and + swelling; no joint pain and no muscle weakness Integumentary: no rash, no lesions and no wounds Neurologic: no gait abnormality, no falls, no numbness, no dizziness and no syncope Psychiatric: no depression and no anxiety Endocrine: no fatigue Physical Exam 2 Vital Signs (Past 24 Hours): Last Vital Signs Temp 36.3 C L 11/27/18 15:38 Pulse 76 11/27/18 17:45 Resp 19 11/27/18 17:45 BP 101/72 11/27/18 17:45 Pulse Ox 95 11/27/18 17:40 Physical Exam: General: awake, alert, mild distress Head: Normocephalic, atraumatic ENT: PERRL, EOMI, no pharyngeal exudate, mucous membranes dry Chest: Clear to auscultation, on 2L via NC, no adventitious breath sounds, + heavy breathing at times Cardiac: + chest pain with palpation over Left chest wall, NSR, + JANNIE, JVD difficult to be assessed due to body habitus, normal peripheral pulses, good capillary refill Abdominal: NABS x 4 quadrants, soft, nontender to palpation, no rebound, guarding or tenderness Extremities: +Multiple fluid blisters over BLE, 2+ peripheral edema, +erythema, +ecchymosis, +warmth, worse on the RLE compared to left. calfs nontender to palpation Psych: Normal mood and affect Neuro: AAO x 3, no motor deficits, speech is clear, no peripheral sensory deficits Constitutional: WD/WN, vitals as above + acute distress Eyes: normal visual galo by confrontation and + anicteric sclerae Neck: normal visual inspection and trachea midline Respiratory: normal respiratory effort, lungs clear to auscultation + respiratory distress Auscultation: + crackles Cardiovascular: Rate/Rhythm: regular rate and regular rhythm Gastrointestinal (Abdomen): Inspection/Auscultation: abdomen not distended Percussion/Palpation: abdomen soft; abdomen nontender Musculoskeletal: Head/Neck/Chest: normocephalic and head atraumatic Neg for peripheral LE edema, + pedal pulses Skin: b/l LE with areas of redness. R posterior calf with open and closed areas of fluctulant material, some draining, green discoloration that family states is a Ukranian home remedy Neurologic: awake; not confused Speech / Cognition: normal speech Psychiatric: A+Ox3, euthymic affect Lymphatic: Exam as done by Marci Peters, Results & Data Diagnostic Findings Ordered CXR - follow results ECG Additional Comments: Ventricular paced rhythm, Biventricular pacemaker Vent rate 70 bpm TN interval * ms QRS 194 ms QT/QTc 556/660 P-R-T axis 220 - 14 Code Status & VTE Plan Code Status DNR Supervising Physician Co-Signing Physician Notes Pt seen and examined by me. Was sent to ED from HD after BP would not tolerate completion of HD and for concern regarding LE cellulitis. Pt generally has 4 hours of HD, only 2.5 hrs today. states he had full HD on without issue. Denies new chest pain. Feels his SOB is still present but better. Tolerating PO without issue but only intake was 1 slice of pizza for lunch prior to HD. Agree with HPI/ROS as noted by PA See above for my exam in PE section Agree with plan as outlined above Pt was signed out as stable but with LE cellulitis and new chest pain with elevated trop During ongoing management, pt's BP with sudden drop and with SOB Possibly related to fluid overload given incomplete HD and IVF in ED vs sepsis vs cardiac MsAbdoul Santana did discuss with ICU staff, awaiting CXR Likely will have lines placed and ongoing ICU management Vanco/blackn for cellulitis _ (1) Atrial fibrillation Atrial fibrillation type: permanent Qualified Code(s): I48.2 - Chronic atrial fibrillation (2) Mitral regurgitation Cardiac valve disease etiology: etiology unspecified Qualified Code(s): I34.0 - Nonrheumatic mitral (valve) insufficiency (3) CKD (chronic kidney disease) Chronic kidney disease stage: stage 4 (severe) Qualified Code(s): N18.4 - Chronic kidney disease, stage 4 (severe)
[2018-11-27] MEDS ORDERED: SODIUM CHLORIDE 0.9% 1000ML 500 ML IV ONE (18:02)
--- NOTE | 2018-11-27 20:09 | XRay Report ---
XR chest 1V portable CLINICAL HISTORY: 78 years-old Male presenting with Dyspnea. TECHNIQUE: Portable upright AP view of the chest was obtained. COMPARISON: 11/14/2018. FINDINGS: Dual-lumen right internal jugular tunneled central venous catheter terminates in the right atrium. Le ft subclavian implanted cardiac defibrillator with leads to the coronary sinus and right ventricular apex unchanged. Atherosclerosis of aortic arch. Cardiac silhouette remains moderately enlarged. Pulmo nary vascular prominence has increased from prior with increasing diffuse density of the lungs. Incre asing trace bilateral pleural effusions. No pneumothorax. Degenerative changes of the thoracic spine. IMPRESSION: 1. Cardiomegaly with worsening volume overload/congestive change and moderate pulmonary edema. 2. Worsening pleural effusions. Electronically signed by: Sven Bettencourt M.D. 11/27/2018 8:07 PM
--- NOTE | 2018-11-27 21:08 | Critical Care Consultation ---
Date of Consultation November 27, 2018 Assessment & Plan (1) Cellulitis: 78-year-old male was admitted to the ICU on 27 November 2018 with lower extremity cellulitis and concerns for sepsis. 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 Tylenol prn for pain. Pulm: Patient noted to have some acute SOB in the ED. Exact fluid status is unclear given his incomplete dialysis earlier today. pCXR notable for moderate pulmonary edema and worsening pleural effusions. -Will place on CPAP. CVS: Patient complains of some chest discomfort. EKG is a ventricularly paced rhythm at 70. TnI 0.209. Some episodes of SBP hypotension into 70s. Given judicious IVF in ED. Remains on home amiodarone, bumetanide, and Coreg. PMH includes ischemic cardiomyopathy (Aug 2017 EF 25-30%), chronic systolic CHF, HLD , CAD (LAD stent x 2), , MR, pulm HTN. - Hold maintenance IVF, as various meds have associated fluid. Will add norepinephrine via peripheral line to goal of map > 60 if needed. - Echocardiogram ordered. Trend TnI. - Hold home bumex and metolazone for relative hypotension. ID: Reports of chills and sweats night prior to admit. Presently afebrile, WBC of 9, lactate 4.4, influenza negative. Concerns for cellulitis on exam and sepsis by labs. BCx sent. Wound culture sent. Wound consult placed. Procalcitonin pending. - Started on vancomycin, zosyn, and clindamycin. - Trend lactates. Endo: PMH insulin-dependent diabetes. Admit glucose 347, anion gap 13, elevated B-OHB. Received insulin in ED. On ICU hyperglycemic protocol. PMH hyperthyroidism, on levothyroxine. 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 TuThSa), last today (), though incomplete. Admit Cr 2.16. Electrolytes okay. - Nephrology consulted for dialysis. GI: No noted abdominal symptoms, N/V/D. Elevated total bilirubin. CT a/p non- con on noted nothing particular in RUQ and no ttp locally. PMH GERD. Heart healthy, DM2, fluid restrict to 1500 mL. Heme: Admit Hb 12.3. Thrombocytopenia (platelets 90), with recent comparisons in 30s. INR 1.1. - Type and screen as a precaution. DVT prophy: On Eliquis. Checking BLE u/s. Skin: Areas of suspected cellulitis and ulceration on the right greater than left inner distal legs. See ID above. Lines: PIV. Code status: DNR/DNI. Patient does NOT wish to have a central line placed. PT/OT: Consulted. Disposition: Critically ill. Admit to ICU. - Case management consulted. (2) Sepsis: (3) Shortness of breath: (4) Pulmonary edema: (5) Pleural effusion: (6) Elevated troponin: (7) Ischemic cardiomyopathy: (8) Systolic heart failure: (9) HLD (hyperlipidemia): (10) Pulmonary hypertension: (11) Coronary artery disease: (12) Aortic stenosis: (13) Mitral regurgitation: (14) Diabetes: (15) Elevated bilirubin: (16) GERD (gastroesophageal reflux disease): (17) Thrombocytopenia: Supervising Physician Co-Signing Physician Notes Dr. Tyler was resident physician during care of patient. I discussed the patient via telephone and agree with the impression and plan. History of Present Illness Attending Physician: Marci Peters DO History of Present Illness 78-year-old male presented to the emergency department with his . Patient speaks primarily Lebanese, therefore translation was obtained via his at bedside as well as the medical planner on the iPad. Per the , yesterday morning the patient was in his regular state of health. By evening he was noted to have chills, sweats, and generalized malaise around 9 PM. He presented for his routine hemodialysis earlier this morning. However, he only underwent 2-1/2 hours scheduled of his scheduled four hours due to increased bilateral leg pain. His states that the redness and ecchymosis on the right leg is all new within the past 24 hours. She applied a green colored 1% alcohol antiseptic to both areas. Patient was referred to the ED for further evaluation. In the ED, the patient did not provide much history whatsoever. He was in a Trendelenburg position and did point to his chest saying that it hurt. He was also noted to have some brief breath-holding versus apneic spells of a couple of seconds. His noted he was not complaining of anything else at the time. From the medical planner discussion, they had no other noted acute complaints or concerns. During the medical translation portion, it was confirmed that the patient would not be interested in CPR, intubation, and does not wish to have a central line placed to administer vasopressors if needed. 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 Allergies Allergy/AdvReac Type Severity Reaction Status Date / Time No Known Allergies Allergy Verified 11/18/18 09:32 Home Medications Home Medications Medication Instructions Recorded Confirmed Type allopurinol 100 mg PO BID 07/13/18 11/27/18 History amiodarone 200 mg PO QDL 07/13/18 11/27/18 History aspirin [Aspirin Low Dose] 81 mg PO UD 07/13/18 11/27/18 History calcitriol 0.5 mcg PO QAM 07/13/18 11/27/18 History insulin glargine [Basaglar KwikPen 35 unit SUBCUT HS 07/13/18 11/27/18 History U-100 Insulin] levothyroxine 75 mcg PO QAM 07/13/18 11/27/18 History potassium chloride 40 meq PO BID 07/13/18 11/27/18 History simvastatin 40 mg PO HS 07/13/18 11/27/18 History zolpidem 1.25 mg PO DIRECTED PRN 07/13/18 11/27/18 History polyethylene glycol 3350 [Miralax] 17 g PO DAILY #30 ea 07/15/18 11/27/18 Rx flaxseed oil 1,000 mg PO TID 10/05/18 11/27/18 History nitroglycerin 1 tab SUBLINGUAL DAILY PRN 10/05/18 11/27/18 History docusate sodium [Colace] 100 mg PO BID 11/05/18 11/27/18 History B complex with C#20-folic acid 1 cap PO QAM #90 cap 11/15/18 11/27/18 Rx [Renal Caps] apixaban [Eliquis] 2.5 mg PO BID #60 tab 11/15/18 11/27/18 Rx bumetanide 2 mg PO BID #60 tab 11/15/18 11/27/18 Rx insulin aspart U-100 [Novolog 1 units SC ACHS #1 pen 11/15/18 11/27/18 Rx Flexpen U-100 Insulin] metolazone 2.5 mg PO WK 11/18/18 11/27/18 History carvedilol 6.25 mg PO BIDM 11/27/18 11/27/18 History fluocinonide 1 applic TOPICAL UD 11/27/18 11/27/18 History ipratropium-albuterol [Combivent 1 puff INHALATION Q6 PRN 11/27/18 11/27/18 History Respimat] Patient History Medical History Septic shock Cellulitis Elevated troponin Diabetes CAD (coronary artery disease), [place] coronary artery Atrial fibrillation (Chronic) Hypothyroidism HLD (hyperlipidemia) (Chronic) Aortic stenosis (Chronic) GERD (gastroesophageal reflux disease) (Chronic) Chronic combined systolic and diastolic CHF (congestive heart failure) (Chronic) CKD (chronic kidney disease), stage III (Chronic) Ischemic cardiomyopathy (Chronic) Pulmonary hypertension (Chronic) Arthritis (Chronic) Diabetes Surgical History S/P cardiac pacemaker procedure Family History Other Family history non-contributory Social History marital status: Current Living Situation: Spouse Other Information That Helps Us Care for You: No Feels Safe at Home: Yes Safety Concerns: Afraid for Self Smoking Status: Never smoker Second Hand Exposure: No Hx Alcohol Use: No Hx Substance Use: No Beliefs That Will Affect Care: None Preferred Language: Lebanese Communication Ability: Effective Stogy Roller Required: Yes Review of Systems Constitutional: See HPI Eyes: Denies any visual loss or diplopia ENT: Denies any ear/nose/throat pain or difficulty speaking or swallowing Respiratory: Denies any dyspnea, cough, hemoptysis Cardiovascular: See HPI Gastrointestinal: Denies any abdominal pain, nausea/vomiting/diarrhea Musculoskeletal: Denies any acute extremity pains, myalgias, or focal weakness Skin: See HPI Neuro: Denies any headache, acute focal weakness or numbness, or difficulties with speech or swallow. Psych: Denies any recent depression or anxiety Physical Exam 2 Vital Signs (Past 24 Hours): Last Vital Signs Temp 36.3 C L 11/27/18 15:38 Pulse 79 11/27/18 19:14 Resp 22 11/27/18 20:41 BP 103/74 11/27/18 19:14 Pulse Ox 95 11/27/18 20:41 Physical Exam: GENERAL: Awake, alert, mildly tachypneic, not speaking much, and appears in mild respiratory distress. HENT: Normocephalic, atraumatic. Oropharynx unremarkable. EYES: Normal conjunctiva. Sclera non-icteric. NECK: Inspection normal. Non-tender. Supple and full ROM. No nuchal rigidity. CARDIAC: +S1S2 ventricularly paced regular rhythm, 2/6 JANNIE. Right IJ tunneled dialysis catheter in place. Left subclavian pacemaker in place. RESPIRATORY: Congested lung galo throughout. No accessory muscle use. Oximask in place. GI: +BS, soft, non-distended. No tenderness to palpation. No rebound or guarding. Overweight habitus. EXTREMITIES: - There are areas of erythema and ecchymosis extending from the right ankle primarily up the medial aspect of the leg near the knee. Within this area are smaller ulcerations and clear blisters. There is less so ecchymosis on the left inner calf with an associated small ulceration. All of these areas are warm to touch but not notably tender. There are areas of the skin that have a greenish thin paint-like discoloration overlying. - Right fifth digit partial amputation. NEURO: No gross neuro deficits. Results & Data Laboratory Results 11/27/18 11/27/18 11/27/18 Range/Units 17:02 16:37 16:00 WBC (4.8-10.8) K/uL RBC (4.7-6.1) M/uL Hgb (14.0-18.0) g/dL Hct (42-52) % MCV (80-100) fL MCH (25-34) pg MCHC (32-36) g/dL RDW Std Deviation (36.4-46.3) fL RDW Coeff of Ebenezer (11.5-14.5) % Plt Count (130-400) K/uL MPV (7.4-10.4) fL Immature Gran % (Auto) % Neut % (Auto) % Lymph % (Auto) % [place] % (Auto) % Eos % (Auto) % Baso % (Auto) % Immature Gran # (Auto) (0.00-0.02) K/uL Neut # (Auto) (1.4-6.5) K/uL Lymph # (Auto) (1.2-3.4) K/uL [place] # (Auto) (0.11-0.59) K/uL Eos # (Auto) (0-0.5) K/uL Baso # (Auto) (0-0.2) K/uL Polychromasia Anisocytosis Sodium 134 L (136-145) mmol/L Potassium 4.0 (3.5-5.1) mmol/L Chloride 97 L (98-107) mmol/L Carbon Dioxide 24 (21-32) mmol/L Anion Gap 13.0 H (3-11) BUN 33 H (7-18) mg/dl Creatinine 2.16 H (0.6-1.4) mg/dl Est Cr Clr Drug Dosing 32.6 ml/min Est GFR ( Amer) 33.2 Est GFR (Non-Af Amer) 28.7 BUN/Creatinine Ratio 15.4 (10-20) Glucose 347 H (70-99) mg/dl Lactate 4.4 H* (0.4-2.0) mmol/L Calcium 8.0 L (8.5-10.1) mg/dl Total Bilirubin 2.3 H (0.2-1) mg/dl AST 41 H (15-37) U/L ALT 51 (12-78) U/L Alkaline Phosphatase 137 H (45-117) U/L Troponin I 0.209 H* (0-0.045) ng/ml Total Protein 6.4 (6.4-8.2) gm/dl Albumin 2.4 L (3.4-5.0) gm/dl Globulin 4.0 (2.5-4.0) gm/dl Albumin/Globulin Ratio 0.6 L (0.9-2) Beta-Hydroxybutyric Acd 5.28 H (0.2-2.81) mg/dl Influenza Type A Ag Neg for Influ A (Neg) Influenza Type B Ag Neg for Influ B (Neg) 11/27/18 Range/Units 16:00 WBC 9.52 (4.8-10.8) K/uL RBC 4.20 L (4.7-6.1) M/uL Hgb 12.3 L (14.0-18.0) g/dL Hct 39.6 L (42-52) % MCV 94.3 (80-100) fL MCH 29.3 (25-34) pg MCHC 31.1 L (32-36) g/dL RDW Std Deviation 69.9 H (36.4-46.3) fL RDW Coeff of Ebenezer 20.4 H (11.5-14.5) % Plt Count 90 L (130-400) K/uL MPV 10.3 (7.4-10.4) fL Immature Gran % (Auto) 2.0 % Neut % (Auto) 88.4 % Lymph % (Auto) 4.1 % [place] % (Auto) 5.4 % Eos % (Auto) 0.0 % Baso % (Auto) 0.1 % Immature Gran # (Auto) 0.19 H (0.00-0.02) K/uL Neut # (Auto) 8.42 H (1.4-6.5) K/uL Lymph # (Auto) 0.39 L (1.2-3.4) K/uL [place] # (Auto) 0.51 (0.11-0.59) K/uL Eos # (Auto) 0.00 (0-0.5) K/uL Baso # (Auto) 0.01 (0-0.2) K/uL Polychromasia 1+ Anisocytosis Present Sodium (136-145) mmol/L Potassium (3.5-5.1) mmol/L Chloride (98-107) mmol/L Carbon Dioxide (21-32) mmol/L Anion Gap (3-11) BUN (7-18) mg/dl Creatinine (0.6-1.4) mg/dl Est Cr Clr Drug Dosing ml/min Est GFR ( Amer) Est GFR (Non-Af Amer) BUN/Creatinine Ratio (10-20) Glucose (70-99) mg/dl Lactate (0.4-2.0) mmol/L Calcium (8.5-10.1) mg/dl Total Bilirubin (0.2-1) mg/dl AST (15-37) U/L ALT (12-78) U/L Alkaline Phosphatase (45-117) U/L Troponin I (0-0.045) ng/ml Total Protein (6.4-8.2) gm/dl Albumin (3.4-5.0) gm/dl Globulin (2.5-4.0) gm/dl Albumin/Globulin Ratio (0.9-2) Beta-Hydroxybutyric Acd (0.2-2.81) mg/dl Influenza Type A Ag (Neg) Influenza Type B Ag (Neg) Diagnostic Findings XR chest 1V portable FINDINGS: Dual-lumen right internal jugular tunneled central venous catheter terminates in the right atrium. Left subclavian implanted cardiac defibrillator with leads to the coronary sinus and right ventricular apex unchanged. Atherosclerosis of aortic arch. Cardiac silhouette remains moderately enlarged. Pulmonary vascular prominence has increased from prior with increasing diffuse density of the lungs. Increasing trace bilateral pleural effusions. No pneumothorax. Degenerative changes of the thoracic spine. IMPRESSION: 1. Cardiomegaly with worsening volume overload/congestive change and moderate pulmonary edema. 2. Worsening pleural effusions. Medications Administered Current Inpatient Medications Sodium Chloride (Nss 1000ml) 1,000 mls @ 150 mls/hr IV .[id number] JANEL Stop: 11/27/18 23:09 Last Admin: 11/27/18 16:41 Dose: 150 mls/hr Miscellaneous Information (Consult) 1 ea N/A UD PRN PRN Reason: Consult Stop: 12/27/18 16:24 Last Admin: 11/27/18 18:09 Dose: 1 ea Resident Activity Tracking Resident Involvement: Resident Care Provided Care Provided: Adult Hospital Medicine _ (1) Mitral regurgitation Cardiac valve disease etiology: etiology unspecified Qualified Code(s): I34.0 - Nonrheumatic mitral (valve) insufficiency (2) Sepsis Sepsis type: sepsis due to unspecified organism Qualified Code(s): A41.9 - Sepsis, unspecified organism
[2018-11-27] MEDS ORDERED: DEXTROSE 50% 50 ML SYRINGE IV PRN (21:31)
[2018-11-27] MEDS ORDERED: ONDANSETRON INJ 2 MG/ML 2 ML VIAL IV PRN (21:31)
[2018-11-27] MEDS ORDERED: GLUCOSE 10 TABS/TUBE PO PRN (21:31)
[2018-11-27] MEDS ORDERED: GLUCAGON FOR INJ 1 MG VIAL SQ PRN (21:31)
[2018-11-27] MEDS ORDERED: NON-FORMULARY MEDICATION (Flaxseed Oil [Flaxseed Oil] 1,000 MG) PO SCH (21:31)
[2018-11-27] MEDS ORDERED: ALBUT/IPRATROP 3MG/0.5MG NEB 3 ML VIAL NEB SCH (21:31)
[2018-11-27] MEDS ORDERED: GLUCOSE 40% GEL 15 GM TUBE PO PRN (21:31)
[2018-11-27] MEDS ORDERED: FLUOCINONIDE 0.05% CR 15 GM TUBE EXT PRN (21:31)
--- NOTE | 2018-11-27 21:43 | Emergency Department Note ---
Entered by Carmine Hancock acting as a scribe for Lilia Cannon MD History of Present Illness General Chief complaint: Referred by Doctor Stated complaint: SLOW HEART RATE, HEAVY CHEST Source: patient and family History of Present Illness Onset (ago): hour(s) (prior to arrival) Location: chest Pain Consistency: + intermittent (hypotension and apnea during dialysis) and + other (persistent chest pressure) Maximum Pain Intensity: 7 Quality: + other (episodes of hypotension/apnea, persistent chest pressure) Associated symptoms: + other (leg pain; chills last night; recent hospitalization for leg edema and blistering) Treatments prior to arrival: other (dialysis) The patient is a 78 year old male who presents to the Emergency Room with complaints of intermittent episodes of hypotension and apnea during dialysis prior to arrival. Family reports that the patient received dialysis for 2.5 hours today, and every time he fell asleep, he stopped breathing, would begin twitching, and his blood pressure would drop. Family received a call after completion recommending that he be brought to the ER for evaluation. They note that he has also been experiencing persistent 7/10 chest pressure that started during dialysis today. They state that the patient was experiencing chills last night. They note that the patient was told yesterday by a teacher that he had water in the lungs. They state that the patient takes Eliquis for atrial fibrillation. Family reports that the patient was recently hospitalized for leg edema and blistering. He was placed on a five-day course of antibiotics that is now complete. They state that they have been wrapping his legs twice daily and brilliant green dye has been applied. He has an upcoming appointment at the wound clinic in two days. The patient reports current leg pain. Home Medications Home Medications Medication Instructions Recorded Confirmed Type allopurinol 100 mg PO BID 07/13/18 11/27/18 History amiodarone 200 mg PO QDL 07/13/18 11/27/18 History aspirin [Aspirin Low Dose] 81 mg PO UD 07/13/18 11/27/18 History calcitriol 0.5 mcg PO QAM 07/13/18 11/27/18 History insulin glargine [Basaglar KwikPen 35 unit SUBCUT HS 07/13/18 11/27/18 History U-100 Insulin] levothyroxine 75 mcg PO QAM 07/13/18 11/27/18 History potassium chloride 40 meq PO BID 07/13/18 11/27/18 History simvastatin 40 mg PO HS 07/13/18 11/27/18 History zolpidem 1.25 mg PO DIRECTED PRN 07/13/18 11/27/18 History polyethylene glycol 3350 [Miralax] 17 g PO DAILY #30 ea 07/15/18 11/27/18 Rx flaxseed oil 1,000 mg PO TID 10/05/18 11/27/18 History nitroglycerin 1 tab SUBLINGUAL DAILY PRN 10/05/18 11/27/18 History docusate sodium [Colace] 100 mg PO BID 11/05/18 11/27/18 History B complex with C#20-folic acid 1 cap PO QAM #90 cap 11/15/18 11/27/18 Rx [Renal Caps] apixaban [Eliquis] 2.5 mg PO BID #60 tab 11/15/18 11/27/18 Rx bumetanide 2 mg PO BID #60 tab 11/15/18 11/27/18 Rx insulin aspart U-100 [Novolog 1 units SC ACHS #1 pen 11/15/18 11/27/18 Rx Flexpen U-100 Insulin] metolazone 2.5 mg PO WK 11/18/18 11/27/18 History carvedilol 6.25 mg PO BIDM 11/27/18 11/27/18 History fluocinonide 1 applic TOPICAL UD 11/27/18 11/27/18 History ipratropium-albuterol [Combivent 1 puff INHALATION Q6 PRN 11/27/18 11/27/18 History Respimat] Allergies Allergy/AdvReac Type Severity Reaction Status Date / Time No Known Allergies Allergy Verified 11/18/18 09:32 Past Med/Surg History Medical History Septic shock Cellulitis Elevated troponin Diabetes CAD (coronary artery disease), agdaagux coronary artery Atrial fibrillation (Chronic) Hypothyroidism HLD (hyperlipidemia) (Chronic) Aortic stenosis (Chronic) GERD (gastroesophageal reflux disease) (Chronic) Chronic combined systolic and diastolic CHF (congestive heart failure) (Chronic) CKD (chronic kidney disease), stage III (Chronic) Ischemic cardiomyopathy (Chronic) Pulmonary hypertension (Chronic) Arthritis (Chronic) Diabetes Surgical History S/P cardiac pacemaker procedure Family History Other Family history non-contributory Social History marital status: Current Living Situation: Spouse Other Information That Helps Us Care for You: No Feels Safe at Home: Yes Safety Concerns: Afraid for Self Smoking Status: Never smoker Second Hand Exposure: No Hx Alcohol Use: No Hx Substance Use: No Beliefs That Will Affect Care: None Communication Ability: Effective Review of Systems See HPI for pertinent positives & negatives. and A total of 10 systems reviewed and were otherwise negative Physical Exam Vital Signs Vital Signs - 24 hr 11/27/18 15:38 11/27/18 15:50 11/27/18 15:55 Temperature 36.3 C L Temperature Source Oral Sepsis Action Taken by Nursing No Action Required Pulse Rate 77 79 70 Pulse Rate [Finger] Pulse Rhythm [Finger] Pulse Strength [Finger] Respiratory Rate 20 18 16 Respiratory Effort / Characteristics Non-Labored Respiratory Depth Normal Respiratory Pattern Blood Pressure - Sitting Blood Pressure 103/65 101/56 L Blood Pressure [Right Arm] Blood Pressure Mean 77 71 Blood Pressure Mean [Right Arm] Blood Pressure Position [Right Arm] Pulse Oximetry 93 92 93 Pulse Oximetry [with Activity] Oxygen Delivery Method Room Air Oxygen Flow Rate Oxygen Flow Rate [with Activity] Fraction of Inspired Oxygen SaO2/FiO2 Ratio 11/27/18 16:00 11/27/18 16:01 11/27/18 16:05 Temperature Temperature Source Sepsis Action Taken by Nursing Pulse Rate 70 70 Pulse Rate [Finger] 70 Pulse Rhythm [Finger] Pulse Strength [Finger] Respiratory Rate 32 H 27 H 29 H Respiratory Effort / Characteristics Respiratory Depth Respiratory Pattern Blood Pressure - Sitting Blood Pressure 111/62 Blood Pressure [Right Arm] 111/62 Blood Pressure Mean 78 Blood Pressure Mean [Right Arm] 78 Blood Pressure Position [Right Arm] Pulse Oximetry 96 97 92 Pulse Oximetry [with Activity] Oxygen Delivery Method Room Air Nasal Cannula Oxygen Flow Rate 3 3 Oxygen Flow Rate [with Activity] Fraction of Inspired Oxygen SaO2/FiO2 Ratio 11/27/18 16:06 11/27/18 16:10 11/27/18 16:16 Temperature Temperature Source Sepsis Action Taken by Nursing Pulse Rate 70 74 70 Pulse Rate [Finger] Pulse Rhythm [Finger] Pulse Strength [Finger] Respiratory Rate 29 H 33 H 29 H Respiratory Effort / Characteristics Respiratory Depth Respiratory Pattern Blood Pressure - Sitting Blood Pressure 108/60 108/63 Blood Pressure [Right Arm] Blood Pressure Mean 76 78 Blood Pressure Mean [Right Arm] Blood Pressure Position [Right Arm] Pulse Oximetry 93 94 92 Pulse Oximetry [with Activity] Oxygen Delivery Method Oxygen Flow Rate Oxygen Flow Rate [with Activity] Fraction of Inspired Oxygen SaO2/FiO2 Ratio 11/27/18 16:20 11/27/18 16:30 11/27/18 16:31 Temperature Temperature Source Sepsis Action Taken by Nursing Pulse Rate 71 71 76 Pulse Rate [Finger] Pulse Rhythm [Finger] Pulse Strength [Finger] Respiratory Rate 29 H 15 25 H Respiratory Effort / Characteristics Respiratory Depth Respiratory Pattern Blood Pressure - Sitting Blood Pressure 104/67 Blood Pressure [Right Arm] Blood Pressure Mean 79 Blood Pressure Mean [Right Arm] Blood Pressure Position [Right Arm] Pulse Oximetry 92 85 L 94 Pulse Oximetry [with Activity] Oxygen Delivery Method Oxygen Flow Rate Oxygen Flow Rate [with Activity] Fraction of Inspired Oxygen SaO2/FiO2 Ratio 11/27/18 16:40 11/27/18 16:46 11/27/18 16:50 Temperature Temperature Source Sepsis Action Taken by Nursing Pulse Rate 74 73 74 Pulse Rate [Finger] Pulse Rhythm [Finger] Pulse Strength [Finger] Respiratory Rate 33 H 29 H 30 H Respiratory Effort / Characteristics Respiratory Depth Respiratory Pattern Blood Pressure - Sitting Blood Pressure 109/67 Blood Pressure [Right Arm] Blood Pressure Mean 81 Blood Pressure Mean [Right Arm] Blood Pressure Position [Right Arm] Pulse Oximetry 90 91 90 Pulse Oximetry [with Activity] Oxygen Delivery Method Oxygen Flow Rate Oxygen Flow Rate [with Activity] Fraction of Inspired Oxygen SaO2/FiO2 Ratio 11/27/18 17:01 11/27/18 17:10 11/27/18 17:16 Temperature Temperature Source Sepsis Action Taken by Nursing Pulse Rate 77 76 82 Pulse Rate [Finger] Pulse Rhythm [Finger] Pulse Strength [Finger] Respiratory Rate 30 H 20 35 H Respiratory Effort / Characteristics Respiratory Depth Respiratory Pattern Blood Pressure - Sitting Blood Pressure 110/68 106/68 Blood Pressure [Right Arm] Blood Pressure Mean 82 80 Blood Pressure Mean [Right Arm] Blood Pressure Position [Right Arm] Pulse Oximetry 93 87 L 96 Pulse Oximetry [with Activity] Oxygen Delivery Method Oxygen Flow Rate Oxygen Flow Rate [with Activity] Fraction of Inspired Oxygen SaO2/FiO2 Ratio 11/27/18 17:20 11/27/18 17:31 11/27/18 17:40 Temperature Temperature Source Sepsis Action Taken by Nursing Pulse Rate 74 72 78 Pulse Rate [Finger] Pulse Rhythm [Finger] Pulse Strength [Finger] Respiratory Rate 19 23 17 Respiratory Effort / Characteristics Respiratory Depth Respiratory Pattern Blood Pressure - Sitting Blood Pressure 103/64 Blood Pressure [Right Arm] Blood Pressure Mean 77 Blood Pressure Mean [Right Arm] Blood Pressure Position [Right Arm] Pulse Oximetry 96 94 95 Pulse Oximetry [with Activity] Oxygen Delivery Method Oxygen Flow Rate Oxygen Flow Rate [with Activity] Fraction of Inspired Oxygen SaO2/FiO2 Ratio 11/27/18 17:45 11/27/18 18:24 11/27/18 19:14 Temperature Temperature Source Sepsis Action Taken by Nursing Pulse Rate 76 Pulse Rate [Finger] 73 79 Pulse Rhythm [Finger] Pulse Strength [Finger] Respiratory Rate 19 12 22 Respiratory Effort / Characteristics Respiratory Depth Respiratory Pattern Blood Pressure - Sitting Blood Pressure 101/72 Blood Pressure [Right Arm] 100/59 L 103/74 Blood Pressure Mean 81 Blood Pressure Mean [Right Arm] 72 83 Blood Pressure Position [Right Arm] Pulse Oximetry 93 95 Pulse Oximetry [with Activity] Oxygen Delivery Method Nasal Cannula Nasal Cannula Oxygen Flow Rate 3 3 Oxygen Flow Rate [with Activity] Fraction of Inspired Oxygen SaO2/FiO2 Ratio 11/27/18 20:41 11/27/18 21:15 11/27/18 21:31 Temperature Temperature Source Sepsis Action Taken by Nursing Pulse Rate 73 70 Pulse Rate [Finger] Pulse Rhythm [Finger] Pulse Strength [Finger] Respiratory Rate 22 26 H Respiratory Effort / Characteristics Non-Labored Spontaneous Respiratory Depth Normal Respiratory Pattern Tachypnea Blood Pressure - Sitting Blood Pressure 96/59 L Blood Pressure [Right Arm] Blood Pressure Mean 71 Blood Pressure Mean [Right Arm] Blood Pressure Position [Right Arm] Pulse Oximetry 95 99 96 Pulse Oximetry [with Activity] Oxygen Delivery Method Oxymask CPAP Oxygen Flow Rate 7 Oxygen Flow Rate [with Activity] Fraction of Inspired Oxygen 30 30 SaO2/FiO2 Ratio 11/27/18 21:46 11/27/18 21:53 11/27/18 21:57 Temperature 36.3 C L Temperature Source Oral Sepsis Action Taken by Nursing Pulse Rate 70 Pulse Rate [Finger] 71 72 Pulse Rhythm [Finger] Regular Pulse Strength [Finger] Normal Respiratory Rate 20 18 Respiratory Effort / Characteristics Non-Labored Spontaneous Non-Labored Spontaneous Respiratory Depth Normal Respiratory Pattern Regular Blood Pressure - Sitting Blood Pressure 101/63 Blood Pressure [Right Arm] 95/59 L Blood Pressure Mean 75 Blood Pressure Mean [Right Arm] 71 Blood Pressure Position [Right Arm] Lying Pulse Oximetry 97 99 96 Pulse Oximetry [with Activity] Oxygen Delivery Method CPAP CPAP Oxygen Flow Rate Oxygen Flow Rate [with Activity] Fraction of Inspired Oxygen 30 30 SaO2/FiO2 Ratio 320 11/27/18 22:01 11/27/18 22:31 11/27/18 22:49 Temperature Temperature Source Sepsis Action Taken by Nursing Pulse Rate 70 70 70 Pulse Rate [Finger] Pulse Rhythm [Finger] Pulse Strength [Finger] Respiratory Rate Respiratory Effort / Characteristics Respiratory Depth Respiratory Pattern Blood Pressure - Sitting Blood Pressure 83/63 L 84/60 L 84/48 L Blood Pressure [Right Arm] Blood Pressure Mean 69 68 60 Blood Pressure Mean [Right Arm] Blood Pressure Position [Right Arm] Pulse Oximetry 98 98 96 Pulse Oximetry [with Activity] Oxygen Delivery Method Oxygen Flow Rate Oxygen Flow Rate [with Activity] Fraction of Inspired Oxygen SaO2/FiO2 Ratio 11/27/18 23:16 11/27/18 23:31 11/27/18 23:33 Temperature 36.6 C Temperature Source Sepsis Action Taken by Nursing Pulse Rate 70 70 Pulse Rate [Finger] Pulse Rhythm [Finger] Pulse Strength [Finger] Respiratory Rate Respiratory Effort / Characteristics Non-Labored Spontaneous Respiratory Depth Normal Respiratory Pattern Regular Blood Pressure - Sitting Blood Pressure 102/64 85/50 L Blood Pressure [Right Arm] Blood Pressure Mean 76 61 Blood Pressure Mean [Right Arm] Blood Pressure Position [Right Arm] Pulse Oximetry 95 97 Pulse Oximetry [with Activity] Oxygen Delivery Method CPAP Oxygen Flow Rate Oxygen Flow Rate [with Activity] Fraction of Inspired Oxygen 30 SaO2/FiO2 Ratio 11/27/18 23:49 11/28/18 00:01 11/28/18 00:31 Temperature Temperature Source Sepsis Action Taken by Nursing Pulse Rate 64 70 71 Pulse Rate [Finger] Pulse Rhythm [Finger] Pulse Strength [Finger] Respiratory Rate 22 18 Respiratory Effort / Characteristics Non-Labored Spontaneous Respiratory Depth Normal Respiratory Pattern Regular Blood Pressure - Sitting Blood Pressure 84/50 L 84/55 L Blood Pressure [Right Arm] Blood Pressure Mean 61 64 Blood Pressure Mean [Right Arm] Blood Pressure Position [Right Arm] Pulse Oximetry 99 99 98 Pulse Oximetry [with Activity] Oxygen Delivery Method Oxygen Flow Rate Oxygen Flow Rate [with Activity] Fraction of Inspired Oxygen 30 SaO2/FiO2 Ratio 11/28/18 01:04 11/28/18 01:30 11/28/18 01:31 Temperature Temperature Source Sepsis Action Taken by Nursing Pulse Rate 70 70 70 Pulse Rate [Finger] Pulse Rhythm [Finger] Pulse Strength [Finger] Respiratory Rate 20 Respiratory Effort / Characteristics Respiratory Depth Respiratory Pattern Blood Pressure - Sitting Blood Pressure 115/70 88/60 L Blood Pressure [Right Arm] Blood Pressure Mean 85 69 Blood Pressure Mean [Right Arm] Blood Pressure Position [Right Arm] Pulse Oximetry 98 100 97 Pulse Oximetry [with Activity] Oxygen Delivery Method Oxygen Flow Rate Oxygen Flow Rate [with Activity] Fraction of Inspired Oxygen SaO2/FiO2 Ratio 11/28/18 02:00 11/28/18 02:23 11/28/18 02:30 Temperature Temperature Source Sepsis Action Taken by Nursing Pulse Rate 71 70 71 Pulse Rate [Finger] Pulse Rhythm [Finger] Pulse Strength [Finger] Respiratory Rate 18 Respiratory Effort / Characteristics Respiratory Depth Respiratory Pattern Blood Pressure - Sitting Blood Pressure 82/53 L Blood Pressure [Right Arm] Blood Pressure Mean 62 Blood Pressure Mean [Right Arm] Blood Pressure Position [Right Arm] Pulse Oximetry 97 Pulse Oximetry [with Activity] Oxygen Delivery Method Oxygen Flow Rate Oxygen Flow Rate [with Activity] Fraction of Inspired Oxygen SaO2/FiO2 Ratio 11/28/18 03:00 11/28/18 03:07 11/28/18 03:31 Temperature Temperature Source Sepsis Action Taken by Nursing Pulse Rate 70 70 75 Pulse Rate [Finger] Pulse Rhythm [Finger] Pulse Strength [Finger] Respiratory Rate 20 24 18 Respiratory Effort / Characteristics Non-Labored Spontaneous Respiratory Depth Normal Respiratory Pattern Regular Blood Pressure - Sitting Blood Pressure 88/50 L 96/58 L Blood Pressure [Right Arm] Blood Pressure Mean 62 70 Blood Pressure Mean [Right Arm] Blood Pressure Position [Right Arm] Pulse Oximetry 97 98 99 Pulse Oximetry [with Activity] Oxygen Delivery Method Oxygen Flow Rate Oxygen Flow Rate [with Activity] Fraction of Inspired Oxygen 30 SaO2/FiO2 Ratio 11/28/18 04:01 11/28/18 04:02 11/28/18 04:37 Temperature 36.7 C 36.5 C Temperature Source Sepsis Action Taken by Nursing Pulse Rate 70 69 105 H Pulse Rate [Finger] Pulse Rhythm [Finger] Pulse Strength [Finger] Respiratory Rate 20 32 H Respiratory Effort / Characteristics Respiratory Depth Respiratory Pattern Blood Pressure - Sitting Blood Pressure 98/57 L 81/41 L Blood Pressure [Right Arm] Blood Pressure Mean 70 54 Blood Pressure Mean [Right Arm] Blood Pressure Position [Right Arm] Pulse Oximetry 98 97 Pulse Oximetry [with Activity] Oxygen Delivery Method Oxygen Flow Rate Oxygen Flow Rate [with Activity] Fraction of Inspired Oxygen SaO2/FiO2 Ratio 11/28/18 05:00 11/28/18 05:01 11/28/18 05:02 Temperature Temperature Source Sepsis Action Taken by Nursing Pulse Rate 107 H 101 H 97 H Pulse Rate [Finger] Pulse Rhythm [Finger] Pulse Strength [Finger] Respiratory Rate 30 H 24 Respiratory Effort / Characteristics Respiratory Depth Respiratory Pattern Blood Pressure - Sitting Blood Pressure 94/69 L Blood Pressure [Right Arm] Blood Pressure Mean 77 Blood Pressure Mean [Right Arm] Blood Pressure Position [Right Arm] Pulse Oximetry Pulse Oximetry [with Activity] Oxygen Delivery Method Oxygen Flow Rate Oxygen Flow Rate [with Activity] Fraction of Inspired Oxygen SaO2/FiO2 Ratio 11/28/18 05:13 11/28/18 05:30 11/28/18 05:31 Temperature Temperature Source Sepsis Action Taken by Nursing Pulse Rate 88 82 80 Pulse Rate [Finger] Pulse Rhythm [Finger] Pulse Strength [Finger] Respiratory Rate 24 20 Respiratory Effort / Characteristics Non-Labored Spontaneous Respiratory Depth Normal Respiratory Pattern Regular Blood Pressure - Sitting Blood Pressure 93/42 L Blood Pressure [Right Arm] Blood Pressure Mean 59 Blood Pressure Mean [Right Arm] Blood Pressure Position [Right Arm] Pulse Oximetry 99 98 97 Pulse Oximetry [with Activity] Oxygen Delivery Method Oxygen Flow Rate Oxygen Flow Rate [with Activity] Fraction of Inspired Oxygen 30 SaO2/FiO2 Ratio 11/28/18 06:02 11/28/18 06:31 11/28/18 07:30 Temperature 36.8 C Temperature Source Sepsis Action Taken by Nursing Pulse Rate 80 78 94 H Pulse Rate [Finger] Pulse Rhythm [Finger] Pulse Strength [Finger] Respiratory Rate 22 24 Respiratory Effort / Characteristics Respiratory Depth Respiratory Pattern Blood Pressure - Sitting Blood Pressure 112/64 91/52 L 94/66 L Blood Pressure [Right Arm] Blood Pressure Mean 80 65 75 Blood Pressure Mean [Right Arm] Blood Pressure Position [Right Arm] Pulse Oximetry 95 95 98 Pulse Oximetry [with Activity] Oxygen Delivery Method CPAP Oxygen Flow Rate Oxygen Flow Rate [with Activity] Fraction of Inspired Oxygen 30 SaO2/FiO2 Ratio 11/28/18 07:34 11/28/18 08:00 11/28/18 08:06 Temperature Temperature Source Sepsis Action Taken by Nursing Pulse Rate 81 81 Pulse Rate [Finger] Pulse Rhythm [Finger] Pulse Strength [Finger] Respiratory Rate Respiratory Effort / Characteristics Spontaneous SOB on Exertion Respiratory Depth Respiratory Pattern Blood Pressure - Sitting Blood Pressure 129/68 Blood Pressure [Right Arm] Blood Pressure Mean 88 Blood Pressure Mean [Right Arm] Blood Pressure Position [Right Arm] Pulse Oximetry 96 99 Pulse Oximetry [with Activity] Oxygen Delivery Method CPAP Nasal Cannula Oxygen Flow Rate 4 Oxygen Flow Rate [with Activity] Fraction of Inspired Oxygen 30 SaO2/FiO2 Ratio 11/28/18 09:00 11/28/18 09:03 11/28/18 10:02 Temperature Temperature Source Sepsis Action Taken by Nursing Pulse Rate 79 79 Pulse Rate [Finger] Pulse Rhythm [Finger] Pulse Strength [Finger] Respiratory Rate Respiratory Effort / Characteristics Respiratory Depth Respiratory Pattern Blood Pressure - Sitting 98/63 L Blood Pressure 97/63 L 101/63 Blood Pressure [Right Arm] Blood Pressure Mean 74 75 Blood Pressure Mean [Right Arm] Blood Pressure Position [Right Arm] Pulse Oximetry 93 92 Pulse Oximetry [with Activity] 96 Oxygen Delivery Method Nasal Cannula Nasal Cannula Oxygen Flow Rate 4 Oxygen Flow Rate [with Activity] 4 Fraction of Inspired Oxygen SaO2/FiO2 Ratio 11/28/18 11:01 11/28/18 12:01 11/28/18 13:01 Temperature 36.7 C Temperature Source Sepsis Action Taken by Nursing Pulse Rate 80 73 83 Pulse Rate [Finger] Pulse Rhythm [Finger] Pulse Strength [Finger] Respiratory Rate Respiratory Effort / Characteristics Respiratory Depth Respiratory Pattern Blood Pressure - Sitting Blood Pressure 100/72 109/74 129/52 L Blood Pressure [Right Arm] Blood Pressure Mean 81 85 77 Blood Pressure Mean [Right Arm] Blood Pressure Position [Right Arm] Pulse Oximetry 97 97 96 Pulse Oximetry [with Activity] Oxygen Delivery Method Nasal Cannula Nasal Cannula Nasal Cannula Oxygen Flow Rate 6 4 Oxygen Flow Rate [with Activity] Fraction of Inspired Oxygen SaO2/FiO2 Ratio 11/28/18 14:01 Temperature Temperature Source Sepsis Action Taken by Nursing Pulse Rate 79 Pulse Rate [Finger] Pulse Rhythm [Finger] Pulse Strength [Finger] Respiratory Rate Respiratory Effort / Characteristics Respiratory Depth Respiratory Pattern Blood Pressure - Sitting Blood Pressure 107/68 Blood Pressure [Right Arm] Blood Pressure Mean 81 Blood Pressure Mean [Right Arm] Blood Pressure Position [Right Arm] Pulse Oximetry 97 Pulse Oximetry [with Activity] Oxygen Delivery Method Nasal Cannula Oxygen Flow Rate 6 Oxygen Flow Rate [with Activity] Fraction of Inspired Oxygen SaO2/FiO2 Ratio Vital signs reviewed. General: Chronically ill-appearing male, in no significant distress. HEENT: No scleral icterus, PERRLA, neck supple. Atraumatic. Cardiovascular: Regular rate and rhythm, occasional ectopy. Pulmonary: Clear to auscultation bilaterally, normal work of breathing. Abdomen: Soft, nontender, nondistended, positive bowel sounds. Musculoskeletal: Atraumatic. Bilateral lower extremity pitting edema with several ulcerations, right greater than left, serous drainage with vesicles noted bilaterally. Right lower extremity is ecchymotic, erythematous, and tender from the ankle to the mid-thigh. Neurologic: Patient somnolent but arousable. Answers questions appropriately. Full strength in all 4 extremities. Cranial nerves 2 through 12 grossly intact. Skin: Warm, dry. Bilateral lower extremities as described above. Course 1605: Past medical records reviewed. The patient was evaluated in room B10, and a complete history and physical examination were performed. 1732: I updated the patient and his family on results and the plan for hospitalization. 1743: I consulted Dr. Peters [facility] Hospitalist. She will reevaluate the patient for hospitalization. Consultations Consultation #1: I consulted Dr. Peters [facility] Hospitalist. She will reevaluate the patient for hospitalization. Time: 17:43 Administered Medications Acetaminophen (Tylenol) 650 mg PO Q4H PRN PRN Reason: Moderate Pain Stop: 12/27/18 21:30 Last Admin: 11/28/18 04:40 Dose: 650 mg Allopurinol (Zyloprim) 100 mg PO BID [facility] Stop: 12/27/18 21:30 Last Admin: 11/28/18 08:08 Dose: 100 mg Admin: 11/27/18 23:00 Dose: 100 mg Amiodarone HCl (Cordarone) 200 mg PO QDL [facility] Stop: 12/28/18 11:29 Last Admin: 11/28/18 10:57 Dose: 200 mg Apixaban (Eliquis) 2.5 mg PO BID [facility] Stop: 12/27/18 21:30 Last Admin: 11/28/18 08:10 Dose: 2.5 mg Admin: 11/27/18 23:01 Dose: 2.5 mg Aspirin (Ecotrin Ectab) 81 mg PO DAILY [facility] Stop: 12/28/18 10:59 Last Admin: 11/28/18 10:57 Dose: 81 mg Bumetanide (Bumex) 2 mg PO BID [facility] Stop: 12/27/18 21:30 Last Admin: 11/28/18 07:18 Dose: Not Given Calcitriol (Racaltrol) 0.5 mcg PO QAM [facility] Stop: 12/28/18 08:59 Last Admin: 11/28/18 08:08 Dose: 0.5 mcg Carvedilol (Coreg) 6.25 mg PO BIDM [facility] Stop: 12/28/18 07:59 Last Admin: 11/28/18 07:52 Dose: Not Given Docusate Sodium (Colace) 100 mg PO BID [facility] Stop: 12/27/18 21:30 Last Admin: 11/28/18 08:10 Dose: 100 mg Admin: 11/27/18 22:59 Dose: 100 mg Clindamycin Phosphate 600 mg/ (Dextrose) 54 mls @ 100 mls/hr IV Q8H [facility] Stop: 12/07/18 22:59 Last Infusion: 11/28/18 06:50 Dose: 0 mls/hr Admin: 11/28/18 06:14 Dose: 100 mls/hr Infusion: 11/27/18 23:41 Dose: 0 mls/hr Admin: 11/27/18 23:08 Dose: 100 mls/hr Piperacillin Sod/Tazobactam (Sod 4.5 gm/ Dextrose) 120 mls @ 30 mls/hr IV Q12H [facility]; Protocol Stop: 12/08/18 01:59 Last Admin: 11/28/18 13:37 Dose: 30 mls/hr Infusion: 11/28/18 06:16 Dose: 0 mls/hr Admin: 11/28/18 02:16 Dose: 30 mls/hr Insulin Aspart (Novolog Flexpen) 0 units SC ACHS [facility]; Protocol Stop: 12/27/18 23:29 Last Admin: 11/28/18 11:47 Dose: 9 units Admin: 11/28/18 08:21 Dose: 7 units Admin: 11/28/18 00:09 Dose: 1 units Insulin Glargine (Lantus Solostar Pen) 40 units SQ HS [facility]; Protocol Stop: 12/27/18 23:29 Last Admin: 11/28/18 00:07 Dose: 40 units Levothyroxine Sodium (Synthroid) 75 mcg PO DAILYBB [facility] Stop: 12/28/18 06:29 Last Admin: 11/28/18 06:14 Dose: 75 mcg Magnesium Hydroxide (Milk Of Magnesia) 30 ml PO Q6H PRN PRN Reason: Indigestion Stop: 12/28/18 09:44 Last Admin: 11/28/18 10:57 Dose: 30 ml Miscellaneous (Icu Protocol For Hyperglycemia) [facility] Stop: 11/30/18 08:59 Last Admin: 11/28/18 08:09 Dose: Not Given Polyethylene Glycol (Miralax Powder Packet) 17 gm PO DAILY [facility] Stop: 12/28/18 08:59 Last Admin: 11/28/18 08:13 Dose: Not Given Potassium Chloride (Klor-Con M20) 40 meq PO BID [facility] Stop: 12/27/18 21:30 Last Admin: 11/28/18 08:23 Dose: Not Given Admin: 11/27/18 23:01 Dose: 40 meq Simvastatin (Zocor) 40 mg PO [facility] Stop: 12/27/18 21:30 Last Admin: 11/27/18 23:01 Dose: 40 mg Vitamin B Complex/Folic Acid (Nephrocaps) 1 cap [facility] Stop: 12/28/18 08:59 Last Admin: 11/28/18 08:08 Dose: 1 cap Discontinued Medications Acetaminophen (Tylenol) 1,000 mg PO ONE STA Stop: 11/27/18 16:26 Last Admin: 11/27/18 16:41 Dose: 1,000 mg Albuterol (Duoneb) 3 ml NEB Q4R JANEL Stop: 12/27/18 21:30 Last Admin: 11/27/18 21:52 Dose: 3 ml Aspirin (Aspirin Chew) 324 mg PO NOW STA Stop: 11/27/18 17:24 Last Admin: 11/27/18 17:34 Dose: 324 mg Piperacillin Sod/Tazobactam Sod (Zosyn) 4.5 gm in 120 mls @ 200 mls/hr IV NOW STA Stop: 11/27/18 17:00 Last Infusion: 11/27/18 18:25 Dose: 0 mls/hr Admin: 11/27/18 17:34 Dose: 200 mls/hr Sodium Chloride (Nss 1000ml) 1,000 mls @ 150 mls/hr IV .[id number] JANEL Stop: 11/27/18 23:09 Last Infusion: 11/27/18 22:00 Dose: 0 mls/hr Admin: 11/27/18 16:41 Dose: 150 mls/hr Vancomycin HCl 2,000 mg/ (Sodium Chloride) 540 mls @ 200 mls/hr IV NOW STA Stop: 11/27/18 19:06 Last Infusion: 11/27/18 21:05 Dose: 0 mls/hr Admin: 11/27/18 18:23 Dose: 200 mls/hr Sodium Chloride (Nss 1000ml) 500 mls @ 999 mls/hr IV .Q31M ONE Stop: 11/27/18 18:32 Last Infusion: 11/27/18 19:05 Dose: 0 mls/hr Admin: 11/27/18 18:09 Dose: 999 mls/hr Sodium Chloride (Nss 1000ml) 1,000 mls @ 75 mls/hr IV .[id number] [facility] Stop: 12/27/18 21:44 Last Infusion: 11/28/18 09:00 Dose: 0 mls/hr Admin: 11/28/18 05:15 Dose: 75 mls/hr Admin: 11/27/18 23:52 Dose: Not Given Insulin Human Regular (Novolin R U-100 Per Unit) 10 units SC NOW STA Stop: 11/27/18 17:24 Last Admin: 11/27/18 17:36 Dose: 10 units Miscellaneous Information (Consult) 1 ea N/A UD PRN PRN Reason: Consult Stop: 12/27/18 16:24 Last Admin: 11/27/18 18:09 Dose: 1 ea Medical Decision Making Differential Diagnosis Differential diagnosis: Etiologies such as cellulitis, abscess, MRSA infection, DVT, necrotizing fasciitis, dermatitis, drug eruption, as well as others were entertained. Medical Records Attestation: I reviewed the patient's medical records. Home Medications Current Medication List: was personally reviewed by me Laboratory Data Attestation: I reviewed the patient's lab results. Result diagrams: 11/28/18 04:34 11/28/18 04:34 Lab Results 11/27/18 11/27/18 11/27/18 Range/Units 16:00 16:00 16:00 WBC 9.52 (4.8-10.8) K/uL RBC 4.20 L (4.7-6.1) M/uL Hgb 12.3 L (14.0-18.0) g/dL Hct 39.6 L (42-52) % MCV 94.3 (80-100) fL MCH 29.3 (25-34) pg MCHC 31.1 L (32-36) g/dL RDW Std Deviation 69.9 H (36.4-46.3) fL RDW Coeff of Ebenezer 20.4 H (11.5-14.5) % Plt Count 90 L (130-400) K/uL MPV 10.3 (7.4-10.4) fL Immature Gran % (Auto) 2.0 % Neut % (Auto) 88.4 % Lymph % (Auto) 4.1 % [place] % (Auto) 5.4 % Eos % (Auto) 0.0 % Baso % (Auto) 0.1 % Immature Gran # (Auto) 0.19 H (0.00-0.02) K/uL Neut # (Auto) 8.42 H (1.4-6.5) K/uL Lymph # (Auto) 0.39 L (1.2-3.4) K/uL [place] # (Auto) 0.51 (0.11-0.59) K/uL Eos # (Auto) 0.00 (0-0.5) K/uL Baso # (Auto) 0.01 (0-0.2) K/uL Polychromasia 1+ Anisocytosis Present Sodium 134 L (136-145) mmol/L Potassium 4.0 (3.5-5.1) mmol/L Chloride 97 L (98-107) mmol/L Carbon Dioxide 24 (21-32) mmol/L Anion Gap 13.0 H (3-11) BUN 33 H (7-18) mg/dl Creatinine 2.16 H (0.6-1.4) mg/dl Est Cr Clr Drug Dosing 32.6 ml/min Est GFR ( Amer) 33.2 Est GFR (Non-Af Amer) 28.7 BUN/Creatinine Ratio 15.4 (10-20) Glucose 347 H (70-99) mg/dl POC Glucose (70-99) Lactate (0.4-2.0) mmol/L Calcium 8.0 L (8.5-10.1) mg/dl Phosphorus (2.5-4.9) mg/dl Magnesium (1.8-2.4) mg/dl Total Bilirubin 2.3 H (0.2-1) mg/dl AST 41 H (15-37) U/L ALT 51 (12-78) U/L Alkaline Phosphatase 137 H (45-117) U/L Troponin I 0.209 H* (0-0.045) ng/ml Total Protein 6.4 (6.4-8.2) gm/dl Albumin 2.4 L (3.4-5.0) gm/dl Globulin 4.0 (2.5-4.0) gm/dl Albumin/Globulin Ratio 0.6 L (0.9-2) Beta-Hydroxybutyric Acd 5.28 H (0.2-2.81) mg/dl Procalcitonin 2.51 H (0-0.5) ng/ml Nasal Screen MRSA (PCR) (Negative) Influenza Type A Ag (Neg) Influenza Type B Ag (Neg) Blood Type Antibody Screen 11/27/18 11/27/18 11/27/18 Range/Units 16:37 17:02 21:43 WBC (4.8-10.8) K/uL RBC (4.7-6.1) M/uL Hgb (14.0-18.0) g/dL Hct (42-52) % MCV (80-100) fL MCH (25-34) pg MCHC (32-36) g/dL RDW Std Deviation (36.4-46.3) fL RDW Coeff of Ebenezer (11.5-14.5) % Plt Count (130-400) K/uL MPV (7.4-10.4) fL Immature Gran % (Auto) % Neut % (Auto) % Lymph % (Auto) % [place] % (Auto) % Eos % (Auto) % Baso % (Auto) % Immature Gran # (Auto) (0.00-0.02) K/uL Neut # (Auto) (1.4-6.5) K/uL Lymph # (Auto) (1.2-3.4) K/uL [place] # (Auto) (0.11-0.59) K/uL Eos # (Auto) (0-0.5) K/uL Baso # (Auto) (0-0.2) K/uL Polychromasia Anisocytosis Sodium (136-145) mmol/L Potassium (3.5-5.1) mmol/L Chloride (98-107) mmol/L Carbon Dioxide (21-32) mmol/L Anion Gap (3-11) BUN (7-18) mg/dl Creatinine (0.6-1.4) mg/dl Est Cr Clr Drug Dosing ml/min Est GFR ( Amer) Est GFR (Non-Af Amer) BUN/Creatinine Ratio (10-20) Glucose (70-99) mg/dl POC Glucose 210 H (70-99) Lactate 4.4 H* (0.4-2.0) mmol/L Calcium (8.5-10.1) mg/dl Phosphorus (2.5-4.9) mg/dl Magnesium (1.8-2.4) mg/dl Total Bilirubin (0.2-1) mg/dl AST (15-37) U/L ALT (12-78) U/L Alkaline Phosphatase (45-117) U/L Troponin I (0-0.045) ng/ml Total Protein (6.4-8.2) gm/dl Albumin (3.4-5.0) gm/dl Globulin (2.5-4.0) gm/dl Albumin/Globulin Ratio (0.9-2) Beta-Hydroxybutyric Acd (0.2-2.81) mg/dl Procalcitonin (0-0.5) ng/ml Nasal Screen MRSA (PCR) (Negative) Influenza Type A Ag Neg for Influ A (Neg) Influenza Type B Ag Neg for Influ B (Neg) Blood Type Antibody Screen 11/27/18 11/27/18 11/27/18 Range/Units 22:00 22:40 22:40 WBC (4.8-10.8) K/uL RBC (4.7-6.1) M/uL Hgb (14.0-18.0) g/dL Hct (42-52) % MCV (80-100) fL MCH (25-34) pg MCHC (32-36) g/dL RDW Std Deviation (36.4-46.3) fL RDW Coeff of Ebenezer (11.5-14.5) % Plt Count (130-400) K/uL MPV (7.4-10.4) fL Immature Gran % (Auto) % Neut % (Auto) % Lymph % (Auto) % [place] % (Auto) % Eos % (Auto) % Baso % (Auto) % Immature Gran # (Auto) (0.00-0.02) K/uL Neut # (Auto) (1.4-6.5) K/uL Lymph # (Auto) (1.2-3.4) K/uL [place] # (Auto) (0.11-0.59) K/uL Eos # (Auto) (0-0.5) K/uL Baso # (Auto) (0-0.2) K/uL Polychromasia Anisocytosis Sodium (136-145) mmol/L Potassium (3.5-5.1) mmol/L Chloride (98-107) mmol/L Carbon Dioxide (21-32) mmol/L Anion Gap (3-11) BUN (7-18) mg/dl Creatinine (0.6-1.4) mg/dl Est Cr Clr Drug Dosing ml/min Est GFR ( Amer) Est GFR (Non-Af Amer) BUN/Creatinine Ratio (10-20) Glucose (70-99) mg/dl POC Glucose (70-99) Lactate 2.0 (0.4-2.0) mmol/L Calcium (8.5-10.1) mg/dl Phosphorus (2.5-4.9) mg/dl Magnesium (1.8-2.4) mg/dl Total Bilirubin (0.2-1) mg/dl AST (15-37) U/L ALT (12-78) U/L Alkaline Phosphatase (45-117) U/L Troponin I 0.194 H* (0-0.045) ng/ml Total Protein (6.4-8.2) gm/dl Albumin (3.4-5.0) gm/dl Globulin (2.5-4.0) gm/dl Albumin/Globulin Ratio (0.9-2) Beta-Hydroxybutyric Acd (0.2-2.81) mg/dl Procalcitonin (0-0.5) ng/ml Nasal Screen MRSA (PCR) Negative (Negative) Influenza Type A Ag (Neg) Influenza Type B Ag (Neg) Blood Type Antibody Screen 11/27/18 11/27/18 11/28/18 Range/Units 22:40 23:13 04:34 WBC 8.64 (4.8-10.8) K/uL RBC 4.26 L (4.7-6.1) M/uL Hgb 12.4 L (14.0-18.0) g/dL Hct 40.6 L (42-52) % MCV 95.3 (80-100) fL MCH 29.1 (25-34) pg MCHC 30.5 L (32-36) g/dL RDW Std Deviation 69.6 H (36.4-46.3) fL RDW Coeff of Ebenezer 20.0 H (11.5-14.5) % Plt Count 79 L (130-400) K/uL MPV 10.3 (7.4-10.4) fL Immature Gran % (Auto) % Neut % (Auto) % Lymph % (Auto) % [place] % (Auto) % Eos % (Auto) % Baso % (Auto) % Immature Gran # (Auto) (0.00-0.02) K/uL Neut # (Auto) (1.4-6.5) K/uL Lymph # (Auto) (1.2-3.4) K/uL [place] # (Auto) (0.11-0.59) K/uL Eos # (Auto) (0-0.5) K/uL Baso # (Auto) (0-0.2) K/uL Polychromasia Anisocytosis Sodium (136-145) mmol/L Potassium (3.5-5.1) mmol/L Chloride (98-107) mmol/L Carbon Dioxide (21-32) mmol/L Anion Gap (3-11) BUN (7-18) mg/dl Creatinine (0.6-1.4) mg/dl Est Cr Clr Drug Dosing ml/min Est GFR ( Amer) Est GFR (Non-Af Amer) BUN/Creatinine Ratio (10-20) Glucose (70-99) mg/dl POC Glucose 188 H (70-99) Lactate (0.4-2.0) mmol/L Calcium (8.5-10.1) mg/dl Phosphorus (2.5-4.9) mg/dl Magnesium (1.8-2.4) mg/dl Total Bilirubin (0.2-1) mg/dl AST (15-37) U/L ALT (12-78) U/L Alkaline Phosphatase (45-117) U/L Troponin I (0-0.045) ng/ml Total Protein (6.4-8.2) gm/dl Albumin (3.4-5.0) gm/dl Globulin (2.5-4.0) gm/dl Albumin/Globulin Ratio (0.9-2) Beta-Hydroxybutyric Acd (0.2-2.81) mg/dl Procalcitonin (0-0.5) ng/ml Nasal Screen MRSA (PCR) (Negative) Influenza Type A Ag (Neg) Influenza Type B Ag (Neg) Blood Type O Negative Antibody Screen NEGATIVE 11/28/18 11/28/18 11/28/18 Range/Units 04:34 04:34 06:11 WBC (4.8-10.8) K/uL RBC (4.7-6.1) M/uL Hgb (14.0-18.0) g/dL Hct (42-52) % MCV (80-100) fL MCH (25-34) pg MCHC (32-36) g/dL RDW Std Deviation (36.4-46.3) fL RDW Coeff of Ebenezer (11.5-14.5) % Plt Count (130-400) K/uL MPV (7.4-10.4) fL Immature Gran % (Auto) % Neut % (Auto) % Lymph % (Auto) % [place] % (Auto) % Eos % (Auto) % Baso % (Auto) % Immature Gran # (Auto) (0.00-0.02) K/uL Neut # (Auto) (1.4-6.5) K/uL Lymph # (Auto) (1.2-3.4) K/uL [place] # (Auto) (0.11-0.59) K/uL Eos # (Auto) (0-0.5) K/uL Baso # (Auto) (0-0.2) K/uL Polychromasia Anisocytosis Sodium 133 L (136-145) mmol/L Potassium 4.2 (3.5-5.1) mmol/L Chloride 101 (98-107) mmol/L Carbon Dioxide 28 (21-32) mmol/L Anion Gap 4.0 (3-11) BUN 43 H (7-18) mg/dl Creatinine 2.36 H (0.6-1.4) mg/dl Est Cr Clr Drug Dosing 30.4 ml/min Est GFR ( Amer) 29.9 Est GFR (Non-Af Amer) 25.8 BUN/Creatinine Ratio 18.1 (10-20) Glucose 147 H (70-99) mg/dl POC Glucose 147 H (70-99) Lactate 2.7 H* (0.4-2.0) mmol/L Calcium 8.2 L (8.5-10.1) mg/dl Phosphorus 4.1 (2.5-4.9) mg/dl Magnesium 2.4 (1.8-2.4) mg/dl Total Bilirubin 1.9 H (0.2-1) mg/dl AST 30 (15-37) U/L ALT 43 (12-78) U/L Alkaline Phosphatase 103 (45-117) U/L Troponin I 0.167 H* (0-0.045) ng/ml Total Protein 6.4 (6.4-8.2) gm/dl Albumin 2.2 L (3.4-5.0) gm/dl Globulin 4.2 H (2.5-4.0) gm/dl Albumin/Globulin Ratio 0.5 L (0.9-2) Beta-Hydroxybutyric Acd (0.2-2.81) mg/dl Procalcitonin (0-0.5) ng/ml Nasal Screen MRSA (PCR) (Negative) Influenza Type A Ag (Neg) Influenza Type B Ag (Neg) Blood Type Antibody Screen 11/28/18 11/28/18 11/28/18 Range/Units 10:31 10:31 11:26 WBC (4.8-10.8) K/uL RBC (4.7-6.1) M/uL Hgb (14.0-18.0) g/dL Hct (42-52) % MCV (80-100) fL MCH (25-34) pg MCHC (32-36) g/dL RDW Std Deviation (36.4-46.3) fL RDW Coeff of Ebenezer (11.5-14.5) % Plt Count (130-400) K/uL MPV (7.4-10.4) fL Immature Gran % (Auto) % Neut % (Auto) % Lymph % (Auto) % [place] % (Auto) % Eos % (Auto) % Baso % (Auto) % Immature Gran # (Auto) (0.00-0.02) K/uL Neut # (Auto) (1.4-6.5) K/uL Lymph # (Auto) (1.2-3.4) K/uL [place] # (Auto) (0.11-0.59) K/uL Eos # (Auto) (0-0.5) K/uL Baso # (Auto) (0-0.2) K/uL Polychromasia Anisocytosis Sodium (136-145) mmol/L Potassium (3.5-5.1) mmol/L Chloride (98-107) mmol/L Carbon Dioxide (21-32) mmol/L Anion Gap (3-11) BUN (7-18) mg/dl Creatinine (0.6-1.4) mg/dl Est Cr Clr Drug Dosing ml/min Est GFR ( Amer) Est GFR (Non-Af Amer) BUN/Creatinine Ratio (10-20) Glucose (70-99) mg/dl POC Glucose 182 H (70-99) Lactate 2.4 H* (0.4-2.0) mmol/L Calcium (8.5-10.1) mg/dl Phosphorus (2.5-4.9) mg/dl Magnesium (1.8-2.4) mg/dl Total Bilirubin (0.2-1) mg/dl AST (15-37) U/L ALT (12-78) U/L Alkaline Phosphatase (45-117) U/L Troponin I 0.152 H* (0-0.045) ng/ml Total Protein (6.4-8.2) gm/dl Albumin (3.4-5.0) gm/dl Globulin (2.5-4.0) gm/dl Albumin/Globulin Ratio (0.9-2) Beta-Hydroxybutyric Acd (0.2-2.81) mg/dl Procalcitonin (0-0.5) ng/ml Nasal Screen MRSA (PCR) (Negative) Influenza Type A Ag (Neg) Influenza Type B Ag (Neg) Blood Type Antibody Screen ECG Data Attestation: I personally reviewed and interpreted this ECG as follows: Indication: chest pain Rate (beats per minute): 70 Rhythm: other (ventricular paced) Findings: + other (QTC 600; repolarization abnormality noted laterally); no PAC and no PVC Blood Pressure Blood Pressure Findings: Normal blood pressure Blood Pressure Disposition: did not require urgent referral MDM Narrative This patient was evaluated and appeared to be in no significant distress. IV access was obtained and laboratory work was drawn. The patient was placed on cardiac specialist and found to be in a ventricularly paced rhythm. Blood pressure was normal at triage and thereafter. Patient's laboratory work reveals a normal white blood cell count. He did recently complete the majority of a dialysis treatment prior to arrival. Patient's electrolytes appeared to be reassuring. As the patient has ecchymosis to the bilateral lower extremities and is on renally dosed Eliquis, Dopplers of lower extremities were performed and are negative. Blood cultures and a lactate were performed. Patient remained reasonably stable in the ED however his lactate was 4.4. Patient's troponin is noted to be higher than his chronically elevated troponin. Today it is at 0.2 and was given aspirin 324 mg to chew. He does not currently have chest pain. IV vancomycin and Zosyn were ordered for the cellulitis noted to the right lower extremity primarily. Consultation was placed with the hospitalist service and the patient was given 500 mL's of IV normal saline solution. The 30 mL/kg was avoided due to the patient's known end -stage renal disease on hemodialysis in addition to his congestive heart failure. The patient did suffer from hypotension and was placed in Trendelenburg by nursing staff however on my evaluation he was very uncomfortable, return to a supine position with the head of the bed at 45 degrees. Patient's blood pressure remained 90-100 systolic and respirations were much more comfortable, O2 sats were maintained. Dr. Peters had evaluated the patient and consulted critical care medicine. Discussion of central line placement was had with Dr. Pantoja. Apparently the patient's family has declined the intervention for the hospitalist. Patient seemed to be fairly stabilized prior to transfer to the ICU. Impression & Plan Sepsis, Elevated troponin, Cellulitis Discharge Plan Visit Data *Final* Discharge Date/Time: 11/27/18 20:41 Chief Complaint: Referred by Doctor Stated Complaint: SLOW HEART RATE, HEAVY CHEST Other Complaint: Tachycardia ED Provider: Lilia Cannon Discharge Problem: Sepsis, Elevated troponin, Cellulitis Patient Disposition: Admitted As Inpatient Discharge Instructions Interventions: ED Discharge Assessment Last Done: 11/27/18 20:41 The scribe's documentation has been prepared under my direction and personally reviewed by me in its entirety. I confirm that the note above accurately reflects all work, treatment, procedures, and medical decision making performed by me.
[2018-11-27] MEDS ORDERED: PIPERACILL/TAZOBAC CONSULT ACTIVE PRN ×2 (21:57)
[2018-11-27] MEDS ORDERED: PHARMACY GLYCEMIC MGMT CONSULT PRN (21:57)
[2018-11-27] MEDS ORDERED: HEPARIN SOD 5,000 UNIT/0.5 ML VIAL SQ SCH (22:00)
[2018-11-27] MEDS: DOCUSATE SODIUM 100 MG CAP PO SCH (22:59)
[2018-11-27] MEDS: ALLOPURINOL 100 MG TAB PO SCH (23:00)
--- NOTE | 2018-11-27 23:00 | Ultrasound Report ---
US venous doppler LE CLINICAL HISTORY: 78 years-old Male presenting with BLE edema, DVT, recent hospitalization. TECHNIQUE: Real-time grayscale and color and spectral Doppler ultrasound imaging of the veins of the bilateral lower extremities was performed. Compression and augmentation were also utilized. COMPARISON: 07/21/2017. FINDINGS: RIGHT: Common femoral vein: Patent. Greater saphenous vein (superficial): Patent. Deep femoral vein: Patent. Femoral vein: Patent. Popliteal vein: Patent. Calf veins: Patent. LEFT: Common femoral vein: Patent. Greater saphenous vein (superficial): Patent. Deep femoral vein: Patent. Femoral vein: Patent. Popliteal vein: Patent. Calf veins: Patent. Other: None. IMPRESSION: No evidence of deep venous thrombosis. Electronically signed by: Sven Bettencourt M.D. 11/27/2018 10:58 PM
[2018-11-27] MEDS: APIXABAN 2.5 MG TAB PO SCH (23:01)
[2018-11-27] MEDS: POTASSIUM CHLORIDE 20 MEQ TABCR PO SCH (23:01)
[2018-11-27] MEDS: SIMVASTATIN 40 MG TAB PO SCH (23:01)
[2018-11-27] MEDS: CLINDAMYCIN 600 MG in DEXTROSE 5% 50 ML IV SCH (23:08)
[2018-11-27] MEDS: SODIUM CHLORIDE 0.9% 1000ML 1,000 ML IV SCH (23:52)
[2018-11-28] MEDS: INSULIN GLARGINE SOLOSTAR 100 UNITS/ML 3 ML PEN SQ SCH ×2 (00:07→20:36)
[2018-11-28] MEDS: INSULIN ASPART 100 UNITS/ML 3 ML PEN SC SCH ×5 (00:09→20:36)
[2018-11-28] MEDS: PIPERACILLIN/TAZOBACTAM 4.5 GM in DEXTROSE 5% 100 ML IV SCH ×2 (02:16→13:37)
[2018-11-28] MEDS: ACETAMINOPHEN 325 MG TAB PO PRN ×3 (04:40→22:34)
[2018-11-28 04:44] LABS: Hematocrit (blood only) 40.6 % (42-52); Hemoglobin 12.4 g/dL (14.0-18.0); Mean Corpuscular Hgb Conc 30.5 g/dL (32-36); Mean Corpuscular Volume 95.3 fL (80-100); RDW Standard Deviation 69.6 fL (36.4-46.3); Red Blood Count 4.26 M/uL (4.7-6.1); White Blood Count 8.64 K/uL (4.8-10.8)
[2018-11-28 04:53] LABS: Mean Platelet Volume 10.3 fL (7.4-10.4); Platelet Count 79 K/uL (130-400)
[2018-11-28 05:01] LABS: Albumin Level 2.2 gm/dl (3.4-5.0); BUN Creatinine Ratio 18.1 (10-20); Calcium 8.2 mg/dl (8.5-10.1); Creatinine Clr Calc Pharmacy 30.4 ml/min; Est GFR (African American) 29.9; Est GFR (Non-African American) 25.8; Magnesium 2.4 mg/dl (1.8-2.4); Potassium 4.2 mmol/L (3.5-5.1)
[2018-11-28 05:09] LABS: Albumin Globulin Ratio 0.5 (0.9-2); Bilirubin,Total 1.9 mg/dl (0.2-1); Globulin 4.2 gm/dl (2.5-4.0); Phosphorus 4.1 mg/dl (2.5-4.9); Total Protein 6.4 gm/dl (6.4-8.2); Troponin I 0.167 ng/ml (0-0.045)
[2018-11-28] MEDS: SODIUM CHLORIDE 0.9% 1000ML 1,000 ML IV SCH (05:15)
--- NOTE | 2018-11-28 06:07 | Critical Care Progress Note ---
Date of Service November 28, 2018 Assessment & Plan (1) Cellulitis: 78-year-old male was admitted to the ICU on 27 November 2018 with lower extremity cellulitis and concerns for sepsis. SPECIAL SHOPPER: CAM-ICU negative. Tylenol prn for pain. Pulm: Patient noted to have some acute SOB in the ED. Exact fluid status is unclear given his incomplete dialysis earlier today. pCXR notable for moderate pulmonary edema and worsening pleural effusions. On CPAP overnight. AM CXR noted improved effusions. CVS: Patient complains of some chest discomfort. EKG is a ventricularly paced rhythm at 70. TnI 0.209 and 0.194 thus far. Given judicious IVF. Remains on home amiodarone and Coreg. PMH includes ischemic cardiomyopathy (Aug 2017 EF 25 -30%), chronic systolic CHF, HLD, CAD (LAD stent x 2), , MR, pulm HTN. Receiving limited IVF for sepsis. Will add norepinephrine via peripheral line to goal of map > 60 if needed. - Echocardiogram read pending. - Hold home bumex, supplemental potassium, and metolazone for relative hypotension. ID: Reports of chills and sweats night prior to admit. Presently afebrile, WBC of 8, lactate 2.7 (trending), influenza negative, elevated procalcitonin. Concerns for cellulitis on exam and sepsis by labs. BCx sent. Wound Cx sent. Started on vancomycin, zosyn, and clindamycin. Wound consult placed. Endo: PMH insulin-dependent diabetes. Admit glucose 347, anion gap 13, elevated B-OHB. Improving. Received insulin in ED. On ICU hyperglycemic protocol. PMH hyperthyroidism, on levothyroxine. 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 TuThSa), last today (), though incomplete. Admit Cr 2.16, a little worse (likely needs a little more fluid). Electrolytes okay. Nephrology consulted for dialysis. GI: No noted abdominal symptoms, N/V/D. Elevated total bilirubin. CT a/p non- con on noted nothing particular in RUQ and no ttp locally. PMH GERD. Heart healthy, DM2, fluid restrict to 1500 mL. Heme: Admit Hb 12.3. Thrombocytopenia (platelets 90), with recent comparisons in 30s. INR 1.1. Type and screen as a precaution. DVT prophy: On Eliquis. No DVT seen on BLE doppler u/s. Skin: Areas of suspected cellulitis and ulceration on the right greater than left inner distal legs. See ID above. Lines: PIV. Code status: DNR/DNI. Patient does NOT wish to have a central line placed. PT/OT: Consulted. Disposition: Admitted to ICU. Consider transfer out of ICU within next 24 hours. - Case management consulted. (2) Sepsis: (3) Shortness of breath: (4) Pulmonary edema: (5) Pleural effusion: (6) Elevated troponin: (7) Ischemic cardiomyopathy: (8) Systolic heart failure: (9) HLD (hyperlipidemia): (10) Pulmonary hypertension: (11) Coronary artery disease: (12) Aortic stenosis: (13) Mitral regurgitation: (14) Diabetes: (15) Elevated bilirubin: (16) GERD (gastroesophageal reflux disease): (17) Thrombocytopenia: Supervising Physician Co-Signing Physician Notes Dr. Tyler was resident physician during care of patient. I separately evaluated patient for tsai portions of the history and the exam. I was present during the critical portion of medical decision making, and I discussed the case with the resident. I generally agree with the findings and plan. Patient clinically feels better. His only complaint is his chronic lower extremity wounds. He denies chest pain shortness of breath fevers. He has a DNR/DNI he does not want advanced vascular access. His blood pressure is improved. I would continue vancomycin and Zosyn until we have cultures and sensitivities to help direct antibiotic therapy. I have discussed the case with Dr. Harrell. We will have a palliative care consult for Thursday. If he remains hemodynamically stable he could be a possible candidate for downgrade later today. Subjective Patient was noted to be mostly resting comfortably overnight. He had two large bowel movements and voided about 500 Ml. He denied any particular chest pain or shortness of breath, though he did have a period of rigors. He was on the CPAP overnight as well, then transitioned to NC oxygen while eating breakfast in his bedside chair. Physical Exam 2 Vital Signs (Past 24 Hours): Last Vital Signs Temp 36.5 C 11/28/18 04:02 Pulse 80 11/28/18 05:31 Resp 20 11/28/18 05:30 BP 93/42 L 11/28/18 05:31 Pulse Ox 97 11/28/18 05:31 Physical Exam: General Appearance: Awake, alert & oriented, comfortable in general, NAD. CV: +S1S2 borderline but regular tachycardia at times, 2/6 JANNIE. Pulm: Clear to auscultation throughout. On NC oxygen. Abdomen: +BS, soft, non-tender, non-distended. Extremities: No calf tenderness. Moving all extremities naturally and easily. There remains some erythema and ecchymosis on the right > left inner calves. Weeping wounds dressed. Right fifth digit partial amputation. Neuro: No gross neuro deficits. Results & Data Laboratory Results 11/28/18 11/28/18 11/28/18 Range/Units 06:11 04:34 04:34 WBC (4.8-10.8) K/uL RBC (4.7-6.1) M/uL Hgb (14.0-18.0) g/dL Hct (42-52) % MCV (80-100) fL MCH (25-34) pg MCHC (32-36) g/dL RDW Std Deviation (36.4-46.3) fL RDW Coeff of Ebenezer (11.5-14.5) % Plt Count (130-400) K/uL MPV (7.4-10.4) fL Immature Gran % (Auto) % Neut % (Auto) % Lymph % (Auto) % [place] % (Auto) % Eos % (Auto) % Baso % (Auto) % Immature Gran # (Auto) (0.00-0.02) K/uL Neut # (Auto) (1.4-6.5) K/uL Lymph # (Auto) (1.2-3.4) K/uL [place] # (Auto) (0.11-0.59) K/uL Eos # (Auto) (0-0.5) K/uL Baso # (Auto) (0-0.2) K/uL Polychromasia Anisocytosis Sodium 133 L (136-145) mmol/L Potassium 4.2 (3.5-5.1) mmol/L Chloride 101 (98-107) mmol/L Carbon Dioxide 28 (21-32) mmol/L Anion Gap 4.0 (3-11) BUN 43 H (7-18) mg/dl Creatinine 2.36 H (0.6-1.4) mg/dl Est Cr Clr Drug Dosing 30.4 ml/min Est GFR ( Amer) 29.9 Est GFR (Non-Af Amer) 25.8 BUN/Creatinine Ratio 18.1 (10-20) Glucose 147 H (70-99) mg/dl POC Glucose 147 H (70-99) Lactate 2.7 H* (0.4-2.0) mmol/L Calcium 8.2 L (8.5-10.1) mg/dl Phosphorus 4.1 (2.5-4.9) mg/dl Magnesium 2.4 (1.8-2.4) mg/dl Total Bilirubin 1.9 H (0.2-1) mg/dl AST 30 (15-37) U/L ALT 43 (12-78) U/L Alkaline Phosphatase 103 (45-117) U/L Troponin I 0.167 H* (0-0.045) ng/ml Total Protein 6.4 (6.4-8.2) gm/dl Albumin 2.2 L (3.4-5.0) gm/dl Globulin 4.2 H (2.5-4.0) gm/dl Albumin/Globulin Ratio 0.5 L (0.9-2) Beta-Hydroxybutyric Acd (0.2-2.81) mg/dl Procalcitonin (0-0.5) ng/ml Nasal Screen MRSA (PCR) (Negative) Influenza Type A Ag (Neg) Influenza Type B Ag (Neg) Blood Type Antibody Screen 11/28/18 11/27/18 11/27/18 Range/Units 04:34 23:13 22:40 WBC 8.64 (4.8-10.8) K/uL RBC 4.26 L (4.7-6.1) M/uL Hgb 12.4 L (14.0-18.0) g/dL Hct 40.6 L (42-52) % MCV 95.3 (80-100) fL MCH 29.1 (25-34) pg MCHC 30.5 L (32-36) g/dL RDW Std Deviation 69.6 H (36.4-46.3) fL RDW Coeff of Ebenezer 20.0 H (11.5-14.5) % Plt Count 79 L (130-400) K/uL MPV 10.3 (7.4-10.4) fL Immature Gran % (Auto) % Neut % (Auto) % Lymph % (Auto) % [place] % (Auto) % Eos % (Auto) % Baso % (Auto) % Immature Gran # (Auto) (0.00-0.02) K/uL Neut # (Auto) (1.4-6.5) K/uL Lymph # (Auto) (1.2-3.4) K/uL [place] # (Auto) (0.11-0.59) K/uL Eos # (Auto) (0-0.5) K/uL Baso # (Auto) (0-0.2) K/uL Polychromasia Anisocytosis Sodium (136-145) mmol/L Potassium (3.5-5.1) mmol/L Chloride (98-107) mmol/L Carbon Dioxide (21-32) mmol/L Anion Gap (3-11) BUN (7-18) mg/dl Creatinine (0.6-1.4) mg/dl Est Cr Clr Drug Dosing ml/min Est GFR ( Amer) Est GFR (Non-Af Amer) BUN/Creatinine Ratio (10-20) Glucose (70-99) mg/dl POC Glucose 188 H (70-99) Lactate (0.4-2.0) mmol/L Calcium (8.5-10.1) mg/dl Phosphorus (2.5-4.9) mg/dl Magnesium (1.8-2.4) mg/dl Total Bilirubin (0.2-1) mg/dl AST (15-37) U/L ALT (12-78) U/L Alkaline Phosphatase (45-117) U/L Troponin I (0-0.045) ng/ml Total Protein (6.4-8.2) gm/dl Albumin (3.4-5.0) gm/dl Globulin (2.5-4.0) gm/dl Albumin/Globulin Ratio (0.9-2) Beta-Hydroxybutyric Acd (0.2-2.81) mg/dl Procalcitonin (0-0.5) ng/ml Nasal Screen MRSA (PCR) (Negative) Influenza Type A Ag (Neg) Influenza Type B Ag (Neg) Blood Type O Negative Antibody Screen NEGATIVE 11/27/18 11/27/18 11/27/18 Range/Units 22:40 22:40 22:00 WBC (4.8-10.8) K/uL RBC (4.7-6.1) M/uL Hgb (14.0-18.0) g/dL Hct (42-52) % MCV (80-100) fL MCH (25-34) pg MCHC (32-36) g/dL RDW Std Deviation (36.4-46.3) fL RDW Coeff of Ebenezer (11.5-14.5) % Plt Count (130-400) K/uL MPV (7.4-10.4) fL Immature Gran % (Auto) % Neut % (Auto) % Lymph % (Auto) % [place] % (Auto) % Eos % (Auto) % Baso % (Auto) % Immature Gran # (Auto) (0.00-0.02) K/uL Neut # (Auto) (1.4-6.5) K/uL Lymph # (Auto) (1.2-3.4) K/uL [place] # (Auto) (0.11-0.59) K/uL Eos # (Auto) (0-0.5) K/uL Baso # (Auto) (0-0.2) K/uL Polychromasia Anisocytosis Sodium (136-145) mmol/L Potassium (3.5-5.1) mmol/L Chloride (98-107) mmol/L Carbon Dioxide (21-32) mmol/L Anion Gap (3-11) BUN (7-18) mg/dl Creatinine (0.6-1.4) mg/dl Est Cr Clr Drug Dosing ml/min Est GFR ( Amer) Est GFR (Non-Af Amer) BUN/Creatinine Ratio (10-20) Glucose (70-99) mg/dl POC Glucose (70-99) Lactate 2.0 (0.4-2.0) mmol/L Calcium (8.5-10.1) mg/dl Phosphorus (2.5-4.9) mg/dl Magnesium (1.8-2.4) mg/dl Total Bilirubin (0.2-1) mg/dl AST (15-37) U/L ALT (12-78) U/L Alkaline Phosphatase (45-117) U/L Troponin I 0.194 H* (0-0.045) ng/ml Total Protein (6.4-8.2) gm/dl Albumin (3.4-5.0) gm/dl Globulin (2.5-4.0) gm/dl Albumin/Globulin Ratio (0.9-2) Beta-Hydroxybutyric Acd (0.2-2.81) mg/dl Procalcitonin (0-0.5) ng/ml Nasal Screen MRSA (PCR) Negative (Negative) Influenza Type A Ag (Neg) Influenza Type B Ag (Neg) Blood Type Antibody Screen 11/27/18 11/27/18 11/27/18 Range/Units 21:43 17:02 16:37 WBC (4.8-10.8) K/uL RBC (4.7-6.1) M/uL Hgb (14.0-18.0) g/dL Hct (42-52) % MCV (80-100) fL MCH (25-34) pg MCHC (32-36) g/dL RDW Std Deviation (36.4-46.3) fL RDW Coeff of Ebenezer (11.5-14.5) % Plt Count (130-400) K/uL MPV (7.4-10.4) fL Immature Gran % (Auto) % Neut % (Auto) % Lymph % (Auto) % [place] % (Auto) % Eos % (Auto) % Baso % (Auto) % Immature Gran # (Auto) (0.00-0.02) K/uL Neut # (Auto) (1.4-6.5) K/uL Lymph # (Auto) (1.2-3.4) K/uL [place] # (Auto) (0.11-0.59) K/uL Eos # (Auto) (0-0.5) K/uL Baso # (Auto) (0-0.2) K/uL Polychromasia Anisocytosis Sodium (136-145) mmol/L Potassium (3.5-5.1) mmol/L Chloride (98-107) mmol/L Carbon Dioxide (21-32) mmol/L Anion Gap (3-11) BUN (7-18) mg/dl Creatinine (0.6-1.4) mg/dl Est Cr Clr Drug Dosing ml/min Est GFR ( Amer) Est GFR (Non-Af Amer) BUN/Creatinine Ratio (10-20) Glucose (70-99) mg/dl POC Glucose 210 H (70-99) Lactate 4.4 H* (0.4-2.0) mmol/L Calcium (8.5-10.1) mg/dl Phosphorus (2.5-4.9) mg/dl Magnesium (1.8-2.4) mg/dl Total Bilirubin (0.2-1) mg/dl AST (15-37) U/L ALT (12-78) U/L Alkaline Phosphatase (45-117) U/L Troponin I (0-0.045) ng/ml Total Protein (6.4-8.2) gm/dl Albumin (3.4-5.0) gm/dl Globulin (2.5-4.0) gm/dl Albumin/Globulin Ratio (0.9-2) Beta-Hydroxybutyric Acd (0.2-2.81) mg/dl Procalcitonin (0-0.5) ng/ml Nasal Screen MRSA (PCR) (Negative) Influenza Type A Ag Neg for Influ A (Neg) Influenza Type B Ag Neg for Influ B (Neg) Blood Type Antibody Screen 11/27/18 11/27/18 11/27/18 Range/Units 16:00 16:00 16:00 WBC 9.52 (4.8-10.8) K/uL RBC 4.20 L (4.7-6.1) M/uL Hgb 12.3 L (14.0-18.0) g/dL Hct 39.6 L (42-52) % MCV 94.3 (80-100) fL MCH 29.3 (25-34) pg MCHC 31.1 L (32-36) g/dL RDW Std Deviation 69.9 H (36.4-46.3) fL RDW Coeff of Ebenezer 20.4 H (11.5-14.5) % Plt Count 90 L (130-400) K/uL MPV 10.3 (7.4-10.4) fL Immature Gran % (Auto) 2.0 % Neut % (Auto) 88.4 % Lymph % (Auto) 4.1 % [place] % (Auto) 5.4 % Eos % (Auto) 0.0 % Baso % (Auto) 0.1 % Immature Gran # (Auto) 0.19 H (0.00-0.02) K/uL Neut # (Auto) 8.42 H (1.4-6.5) K/uL Lymph # (Auto) 0.39 L (1.2-3.4) K/uL [place] # (Auto) 0.51 (0.11-0.59) K/uL Eos # (Auto) 0.00 (0-0.5) K/uL Baso # (Auto) 0.01 (0-0.2) K/uL Polychromasia 1+ Anisocytosis Present Sodium 134 L (136-145) mmol/L Potassium 4.0 (3.5-5.1) mmol/L Chloride 97 L (98-107) mmol/L Carbon Dioxide 24 (21-32) mmol/L Anion Gap 13.0 H (3-11) BUN 33 H (7-18) mg/dl Creatinine 2.16 H (0.6-1.4) mg/dl Est Cr Clr Drug Dosing 32.6 ml/min Est GFR ( Amer) 33.2 Est GFR (Non-Af Amer) 28.7 BUN/Creatinine Ratio 15.4 (10-20) Glucose 347 H (70-99) mg/dl POC Glucose (70-99) Lactate (0.4-2.0) mmol/L Calcium 8.0 L (8.5-10.1) mg/dl Phosphorus (2.5-4.9) mg/dl Magnesium (1.8-2.4) mg/dl Total Bilirubin 2.3 H (0.2-1) mg/dl AST 41 H (15-37) U/L ALT 51 (12-78) U/L Alkaline Phosphatase 137 H (45-117) U/L Troponin I 0.209 H* (0-0.045) ng/ml Total Protein 6.4 (6.4-8.2) gm/dl Albumin 2.4 L (3.4-5.0) gm/dl Globulin 4.0 (2.5-4.0) gm/dl Albumin/Globulin Ratio 0.6 L (0.9-2) Beta-Hydroxybutyric Acd 5.28 H (0.2-2.81) mg/dl Procalcitonin 2.51 H (0-0.5) ng/ml Nasal Screen MRSA (PCR) (Negative) Influenza Type A Ag (Neg) Influenza Type B Ag (Neg) Blood Type Antibody Screen Medications Administered Current Inpatient Medications Acetaminophen (Tylenol) 650 mg PO Q4H PRN PRN Reason: Moderate Pain Stop: 12/27/18 21:30 Last Admin: 11/28/18 04:40 Dose: 650 mg Albuterol (Combivent Respimat) 1 puffs INH Q6 PRN PRN Reason: Shortness Of Breath Stop: 12/27/18 21:30 Albuterol (Duoneb) 3 ml NEB Q4R PRN PRN Reason: Shortness Of Breath Or Wheezin Stop: 12/27/18 21:30 Allopurinol (Zyloprim) 100 mg PO BID JANEL Stop: 12/27/18 21:30 Last Admin: 11/28/18 08:08 Dose: 100 mg Amiodarone HCl (Cordarone) 200 mg PO QDL JANEL Stop: 12/28/18 11:29 Apixaban (Eliquis) 2.5 mg PO BID JANEL Stop: 12/27/18 21:30 Last Admin: 11/28/18 08:10 Dose: 2.5 mg Aspirin (Ecotrin Ectab) 81 mg PO UD [facility] Stop: 12/27/18 21:30 Bumetanide (Bumex) 2 mg PO BID JANEL Stop: 12/27/18 21:30 Last Admin: 11/28/18 07:18 Dose: Not Given Calcitriol (Racaltrol) 0.5 mcg PO QAM JANEL Stop: 12/28/18 08:59 Last Admin: 11/28/18 08:08 Dose: 0.5 mcg Carvedilol (Coreg) 6.25 mg PO BIDM [facility] Stop: 12/28/18 07:59 Last Admin: 11/28/18 07:52 Dose: Not Given Dextrose (Dextrose 50%) 25 - 50 ml IV UD PRN; Protocol PRN Reason: Hypoglycemia Protocol Stop: 12/27/18 21:30 Docusate Sodium (Colace) 100 mg PO BID JANEL Stop: 12/27/18 21:30 Last Admin: 11/28/18 08:10 Dose: 100 mg Fluocinonide (Lidex 0.5%) 1 appln EXT UD PRN PRN Reason: as directed Stop: 12/27/18 21:30 Glucagon (Glucagen) 1 mg SQ UD PRN; Protocol PRN Reason: Hypoglycemia Protocol Stop: 12/27/18 21:30 Glucose (Glucose 40%) 15 - 30 gm PO UD PRN; Protocol PRN Reason: Hypoglycemia Protocol Stop: 12/27/18 21:30 Glucose (Dex4 Glucose) 4 - 8 tabs PO UD PRN; Protocol PRN Reason: Hypoglycemia Protocol Stop: 12/27/18 21:30 Clindamycin Phosphate 600 mg/ (Dextrose) 54 mls @ 100 mls/hr IV Q8H JANEL Stop: 12/07/18 22:59 Last Infusion: 11/28/18 06:50 Dose: Infused Piperacillin Sod/Tazobactam (Sod 4.5 gm/ Dextrose) 120 mls @ 30 mls/hr IV Q12H JANEL; Protocol Stop: 12/08/18 01:59 Last Infusion: 11/28/18 06:16 Dose: Infused Insulin Aspart (Novolog Flexpen) 0 units SC ACHS [facility]; Protocol Stop: 12/27/18 23:29 Last Admin: 11/28/18 08:21 Dose: 7 units Insulin Glargine (Lantus Solostar Pen) 40 units SQ HS [facility]; Protocol Stop: 12/27/18 23:29 Last Admin: 11/28/18 00:07 Dose: 40 units Levothyroxine Sodium (Synthroid) 75 mcg PO DAILYBB [facility] Stop: 12/28/18 06:29 Last Admin: 11/28/18 06:14 Dose: 75 mcg Metolazone (Zaroxolyn) 2.5 mg PO WK [facility] Stop: 12/27/18 21:30 Miscellaneous (Carbohydrates For Hypoglycemia) 15 - 30 gm PO UD PRN PRN Reason: Hypoglycemia Treatment Stop: 12/27/18 21:30 Miscellaneous (Icu Protocol For Hyperglycemia) 1 ea N/A QAM [facility] Stop: 11/30/18 08:59 Last Admin: 11/28/18 08:09 Dose: Not Given Miscellaneous Information (Consult) 1 ea N/A UD PRN PRN Reason: Consult Stop: 12/27/18 21:30 Miscellaneous Information (Consult) 1 ea N/A UD PRN PRN Reason: Consult Stop: 12/27/18 21:56 Miscellaneous Information (Consult Glycemic Management Pharmacy) 1 ea N/A UD PRN PRN Reason: Consult Stop: 12/27/18 21:56 Miscellaneous Information (Nursing To Pharmacy Communication) 1 ea N/A ONE ONE Stop: 11/28/18 09:38 Nitroglycerin (Nitrostat) 0.4 mg SL DAILY PRN PRN Reason: Chest Pain Stop: 12/27/18 21:30 Ondansetron HCl (Zofran) 4 mg IV Q4H PRN PRN Reason: Nausea And Vomiting Stop: 12/27/18 21:30 Polyethylene Glycol (Miralax Powder Packet) 17 gm PO DAILY JANEL Stop: 12/28/18 08:59 Last Admin: 11/28/18 08:13 Dose: Not Given Potassium Chloride (Klor-Con M20) 40 meq PO BID JANEL Stop: 12/27/18 21:30 Last Admin: 11/28/18 08:23 Dose: Not Given Simvastatin (Zocor) 40 mg PO HS JANEL Stop: 12/27/18 21:30 Last Admin: 11/27/18 23:01 Dose: 40 mg Vitamin B Complex/Folic Acid (Nephrocaps) 1 cap PO QAM JANEL Stop: 12/28/18 08:59 Last Admin: 11/28/18 08:08 Dose: 1 cap Zolpidem Tartrate (Ambien) 1.25 mg PO HSZ PRN PRN Reason: Insomnia Stop: 12/27/18 21:30 Resident Activity Tracking Resident Involvement: Resident Care Provided Care Provided: [facility] _ (1) Mitral regurgitation Cardiac valve disease etiology: etiology unspecified Qualified Code(s): I34.0 - Nonrheumatic mitral (valve) insufficiency (2) Sepsis Sepsis type: sepsis due to unspecified organism Qualified Code(s): A41.9 - Sepsis, unspecified organism
[2018-11-28] MEDS: LEVOTHYROXINE SODIUM 75 MCG TABLET PO SCH (06:14)
[2018-11-28] MEDS: CLINDAMYCIN 600 MG in DEXTROSE 5% 50 ML IV SCH ×3 (06:14→22:34)
--- NOTE | 2018-11-28 07:13 | XRay Report ---
XR chest 1V portable CLINICAL HISTORY: eval pulm edema dyspnea COMPARISON STUDY: 11/27/2018 FINDINGS: Stable cardiomegaly. Improved pulmonary vasculature prominence. Unchanged position of the p atient's cardiac pacemaker as well as central catheter. IMPRESSION: Improving pulmonary edema The above report was generated using voice recognition software. It may contain grammatical, syntax or spelling errors. Electronically signed by: Harjeet Tellez M.D. 11/28/2018 7:11 AM
[2018-11-28] MEDS: BUMETANIDE 1 MG TAB PO SCH (07:18)
[2018-11-28] MEDS: CARVEDILOL 6.25 MG TAB PO SCH ×2 (07:52→17:43)
[2018-11-28] MEDS: ALLOPURINOL 100 MG TAB PO SCH ×2 (08:08→20:33)
[2018-11-28] MEDS: CALCITRIOL 0.25 MCG CAPSULE PO SCH (08:08)
[2018-11-28] MEDS: NEPHROCAPS PO SCH (08:08)
[2018-11-28] MEDS: DOCUSATE SODIUM 100 MG CAP PO SCH ×2 (08:10→20:33)
[2018-11-28] MEDS: APIXABAN 2.5 MG TAB PO SCH ×2 (08:10→20:34)
[2018-11-28] MEDS: POLYETHYLENE (MIRALAX) 17 GM PACK PO SCH (08:13)
[2018-11-28] MEDS: POTASSIUM CHLORIDE 20 MEQ TABCR PO SCH (08:23)
--- NOTE | 2018-11-28 08:50 | Pharmacy Report ---
Pharmacy Abx Dose Progress Nt - Date of Service November 28, 2018 - Pharmacy Dosing Scope The patient is currently receiving the following antimicrobial agents per Pharmacy consult: Vancomycin and Zosyn IV - Objective Vital Signs (Past 12hrs): Vital Signs Temp Pulse Pulse Resp BP BP Pulse Ox 11/28/18 07:30 36.8 C 94 H 94/66 L 98 11/28/18 06:31 78 24 91/52 L 95 11/28/18 06:02 80 22 112/64 95 11/28/18 05:31 80 93/42 L 97 11/28/18 05:30 82 20 98 11/28/18 05:13 88 24 99 11/28/18 05:02 97 H 11/28/18 05:01 101 H 24 94/69 L 11/28/18 05:00 107 H 30 H 11/28/18 04:37 105 H 32 H 81/41 L 11/28/18 04:02 36.5 C 69 97 11/28/18 04:01 36.7 C 70 20 98/57 L 98 11/28/18 03:31 75 18 96/58 L 99 11/28/18 03:07 70 24 98 11/28/18 03:00 70 20 88/50 L 97 11/28/18 02:30 71 18 82/53 L 97 11/28/18 02:23 70 11/28/18 02:00 71 11/28/18 01:31 70 88/60 L 97 11/28/18 01:30 70 100 11/28/18 01:04 70 20 115/70 98 11/28/18 00:31 71 18 84/55 L 98 11/28/18 00:01 70 84/50 L 99 11/27/18 23:49 64 22 99 11/27/18 23:31 36.6 C 70 85/50 L 97 11/27/18 23:16 70 102/64 95 11/27/18 22:49 70 84/48 L 96 11/27/18 22:31 70 84/60 L 98 11/27/18 22:01 70 83/63 L 98 11/27/18 21:57 36.3 C L 72 18 95/59 L 96 11/27/18 21:53 71 20 99 11/27/18 21:46 70 101/63 97 11/27/18 21:31 70 96/59 L 96 11/27/18 21:15 73 26 H 99 Lab Results (24hrs): Laboratory Tests (24 Hours) 11/28/18 11/28/18 11/27/18 04:34 04:34 16:00 WBC 8.64 Neut # (Auto) Creatinine 2.36 H Est Cr Clr Drug Dosing 30.4 Procalcitonin 2.51 H 11/27/18 11/27/18 16:00 16:00 WBC 9.52 Neut # (Auto) 8.42 H Creatinine 2.16 H Est Cr Clr Drug Dosing 32.6 Procalcitonin Micro Results: 11/27/18 17:48 Gram Stain - Final Leg,Right Wound Culture - Pending 11/27/18 16:57 Blood Culture - Pending Blood 11/27/18 17:02 Blood Culture - Pending Blood - Risk Factors for Resistance * Hospitalization for 48 hours or more within the past 90 days * Chronic dialysis within the past 30 days - Assessment & Plan Assessment 78 year old M receiving vancomycin and zosyn for treatment of cellulitis. Patient is on HD, with last HD session reported as 2/2 as a partial session. Further HD plans during inpatient stay unknown at this time. Provider will alert pharmacy if HD schedule determined for today. Of note, the patient is producing some urine. Therefore, I will get a 24 hour random level to assess intrinsic clearance. Day # 2 of antimicrobial therapy Plan Vancomycin IV * 2000mg X1 given last evening in ED (~1800) * Will order a 24 hours random level to assess clearance tonight @ 1800 Piperacillin/tazobactam * Continue 4.5 g IV extended infusion every 12 hours for CrCl 20 mL/min or less. Pharmacy will continue to follow and will adjust dose/frequency as necessary. Thank you.
--- NOTE | 2018-11-28 08:59 | Pharmacy Report ---
Glycemic Control Consultation - Date of Service November 28, 2018 - Scope Scope: Glycemic Pharmacist consulted by Dr Tyler on 11/27/18 for glycemic control and to write orders per [facility] inpatient glycemic control protocol - Objective Weight: 102.3 kg Accuchecks BSG (last 24hrs): 11/27/18 11/27/18 11/27/18 16:00 21:43 23:13 Glucose 347 H POC Glucose 210 H 188 H 11/28/18 11/28/18 04:34 06:11 Glucose 147 H POC Glucose 147 H Laboratory Data (last 24hrs): 11/27/18 11/28/18 16:00 04:34 Potassium 4.0 4.2 Carbon Dioxide 24 28 Anion Gap 13.0 H 4.0 Creatinine 2.16 H 2.36 H Est Cr Clr Drug Dosing 32.6 30.4 Beta-Hydroxybutyric Acd 5.28 H HbA1c: 6.8% on 11/06/18 - Recent Pertinent Medications Outpatient Anti-diabetic Regimen: * Lantus 35 units HS, novolog ACHS * A1c = 6.8 % 11/06/18 The patient is currently receiving: * Basal insulin: Lantus 40 units HS * Correctional Insulin: Novolog Correction per scale ACHS Goal Range: Low 140 mg/dL - High 180 mg/dL Correction Factor: 20 mg/dL/unit * Prandial insulin: Per carb ratio of 1 unit per 7 grams CHO consumed * Oral Agents: Risk Factors for Insulin Resistance: * Infection: On vanc/zosyn for cellulitis, possible sepsis : - Assessment & Plan Assessment & Plan: ASSESSMENT: * Patient admitted for LE cellulitis. Patient received 10 units of SQ regular insulin yesterday in the ED and lantus was initiated in the evening. Last dose of lantus was indicate to be 11/25. The patient is ordered a diet. Need for lantus scale will be assessed after lunchtime BSG. PLAN FOR INPATIENT GLYCEMIC CONTROL: * Basal insulin * Lantus 40 units SQ HS * Bolus insulin * NovoLog per scale ACHS * Goal Range: Low 120 mg/dL - High 160 mg/dL * Correction Factor: 20 mg/dL/unit * Nutritional / Prandial insulin per carb ratio of 1 unit per 7 grams CHO consumed * Please note that the plan above was derived based on current level of insulin resistance and hospital stress. These recommendations are appropriate for inpatient admission only. Plan of care upon discharge will need to be reassessed to avoid potential outpatient hypo/hyperglycemia. Thank you.
[2018-11-28] MEDS ORDERED: ICU PROTOCOL FOR HYPERGLYCEMIA SCH (09:00)
[2018-11-28] MEDS ORDERED: VANCOMYCIN HCL 500 MG in SODIUM CHLORIDE 0.9% 250 ML IV SCH (09:00)
[2018-11-28] MEDS ORDERED: Nursing to Pharmacy Communication ONE (09:37)
--- NOTE | 2018-11-28 10:53 | Nephrology Consultation ---
Date of Consultation November 28, 2018 Assessment & Plan (1) ESRD (end stage renal disease) on dialysis: -- Patient is breathing comfortably on O2 at 4 L /min NC. SaO2 is 92% -- CXR film reviewed this am: Cardiomegally. Mild pulmonary vascular congestion -- Volume status and electrolyte balance are acceptable. No acute indication for HD today. Will reassess in am (2) Angina pectoris, unspecified: -- Patient presented w/ complaints of chest pressure. Recommend trending cardiac enzymes (3) Cellulitis: -- Await blood and wound culture results (pending this am) -- Empiric Zosyn & Clindamycin therapy. Dosing as per pharmacy technician inpatient. Narrow spectrum based on culture findings (4) S/P admission to ICU (intensive care unit): -- 45 minutes critical care time provided. Plan of care discussed w/ ICU team and staff mechanical engineer History of Present Illness Reason for Consultation: ESRD on IHD Attending Physician: Jacques Harrell History of Present Illness Mr. Davidson is a 78 year old Nepalese male who is seen in the ICU at the request of [facility] Hospitalist Service to provide inpatient HD and assist w/ medical management. Medical records in the EMR were reviewed today and are summarized as follows: Mr. Davidson has ESRD requiring IHD due to cardiorenal syndrome. He has an ICM w/ LVEF 25-30%, s/p AICD, moderate /TR, chronic atrial fibrillation and DM. Mr. Davidson suffers from chronic LE edema and has several ulcerative lesions on his legs which have been slow to heal. Yesterday Mr. Davidson completed on 2.5 hours of his prescribed dialysis treatment. He complained of leg pain, chest pressure and became progressively lethargic. Mr. Davidson was then admitted to the hospital with a presumed diagnosis of LE cellulitis. Shortly after admission he became progressively hypotensive and required transfer to the ICU for antibiotic therapy and pressors if needed. Allergies Allergy/AdvReac Type Severity Reaction Status Date / Time No Known Allergies Allergy Verified 11/18/18 09:32 Home Medications Home Medications Medication Instructions Recorded Confirmed Type allopurinol 100 mg PO BID 07/13/18 11/27/18 History amiodarone 200 mg PO QDL 07/13/18 11/27/18 History aspirin [Aspirin Low Dose] 81 mg PO UD 07/13/18 11/27/18 History calcitriol 0.5 mcg PO QAM 07/13/18 11/27/18 History insulin glargine [Basaglar KwikPen 35 unit SUBCUT HS 07/13/18 11/27/18 History U-100 Insulin] levothyroxine 75 mcg PO QAM 07/13/18 11/27/18 History potassium chloride 40 meq PO BID 07/13/18 11/27/18 History simvastatin 40 mg PO HS 07/13/18 11/27/18 History zolpidem 1.25 mg PO DIRECTED PRN 07/13/18 11/27/18 History polyethylene glycol 3350 [Miralax] 17 g PO DAILY #30 ea 07/15/18 11/27/18 Rx flaxseed oil 1,000 mg PO TID 10/05/18 11/27/18 History nitroglycerin 1 tab SUBLINGUAL DAILY PRN 10/05/18 11/27/18 History docusate sodium [Colace] 100 mg PO BID 11/05/18 11/27/18 History B complex with C#20-folic acid 1 cap PO QAM #90 cap 11/15/18 11/27/18 Rx [Renal Caps] apixaban [Eliquis] 2.5 mg PO BID #60 tab 11/15/18 11/27/18 Rx bumetanide 2 mg PO BID #60 tab 11/15/18 11/27/18 Rx insulin aspart U-100 [Novolog 1 units SC ACHS #1 pen 11/15/18 11/27/18 Rx Flexpen U-100 Insulin] metolazone 2.5 mg PO WK 11/18/18 11/27/18 History carvedilol 6.25 mg PO BIDM 11/27/18 11/27/18 History fluocinonide 1 applic TOPICAL UD 11/27/18 11/27/18 History ipratropium-albuterol [Combivent 1 puff INHALATION Q6 PRN 11/27/18 11/27/18 History Respimat] Patient History Medical History Septic shock Cellulitis Elevated troponin Diabetes CAD (coronary artery disease), [place] coronary artery Atrial fibrillation (Chronic) Hypothyroidism HLD (hyperlipidemia) (Chronic) Aortic stenosis (Chronic) GERD (gastroesophageal reflux disease) (Chronic) Chronic combined systolic and diastolic CHF (congestive heart failure) (Chronic) CKD (chronic kidney disease), stage III (Chronic) Ischemic cardiomyopathy (Chronic) Pulmonary hypertension (Chronic) Arthritis (Chronic) Diabetes Surgical History S/P cardiac pacemaker procedure Family History Other Family history non-contributory Social History marital status: Current Living Situation: Spouse Other Information That Helps Us Care for You: No Feels Safe at Home: Yes Safety Concerns: Afraid for Self Smoking Status: Never smoker Second Hand Exposure: No Hx Alcohol Use: No Hx Substance Use: No Beliefs That Will Affect Care: None Preferred Language: Nepalese Communication Ability: Effective Associate [employer] Required: Yes Review of Systems Patient could not participate in ROS Physical Exam 2 Vital Signs (Past 24 Hours): Last Vital Signs Temp 36.8 C 11/28/18 07:30 Pulse 79 11/28/18 10:02 Resp 24 11/28/18 06:31 BP 101/63 11/28/18 10:02 Pulse Ox 92 11/28/18 10:02 Constitutional: + ill appearing Neck: trachea midline, no thyromegaly Respiratory: normal respiratory effort, lungs clear to auscultation Cardiovascular: Rate/Rhythm: regular rate and regular rhythm Extremities: + edema (3+ pitting edema of the legs. Several ulcerative lesions w/ clean dry dressings in place) Gastrointestinal (Abdomen): normal bowel sounds, soft, nontender, no hepatosplenomegaly Results & Data Laboratory Results Laboratory Tests 11/28/18 11/28/18 04:34 04:34 WBC 8.64 Hgb 12.4 L Hct 40.6 L Plt Count 79 L Sodium 133 L Potassium 4.2 Chloride 101 Carbon Dioxide 28 BUN 43 H Creatinine 2.36 H Calcium 8.2 L Phosphorus 4.1 Magnesium 2.4 Troponin I 0.167 H* Albumin 2.2 L Diagnostic Findings 11/27/18 blood & wound cultures - Pending 11/27/18 CXR: Cardiomegally. Mild pulmonary vascular congestion _ (1) Cellulitis Laterality: right Site of cellulitis: extremity Site of cellulitis of extremity: lower extremity Site of cellulitis of trunk: Qualified Code(s): L03.115 - Cellulitis of right lower limb
[2018-11-28] MEDS: ASPIRIN 81 MG ECTAB PO SCH (10:57)
[2018-11-28] MEDS: AMIODARONE 200 MG TAB PO SCH (10:57)
[2018-11-28] MEDS: MAGNESIUM HYDROXIDE SUSP 30 ML UDC PO PRN (10:57)
[2018-11-28] MEDS ORDERED: SODIUM CHLORIDE 0.65% NA SOLN 45 ML (OCEAN) ONE (15:02)
[2018-11-28] MEDS: SIMVASTATIN 40 MG TAB PO SCH (20:33)
[2018-11-28] MEDS: ZOLPIDEM TARTRATE 5 MG TAB PO PRN (23:16)
--- NOTE | 2018-11-28 23:30 | Hospitalist Progress Note ---
Date of Service November 28, 2018 Assessment & Plan (1) Septic shock: (2) Cellulitis: Patient initally was hypotensive. Differential is septic shock vs cardiogenic shock. Patient did improve on day 2 of hospital stay. - ICU was consulted for possible central line placement with needs for pressors since cannot volume resuscitate with poor EF. BP slightly improved into the 70s which in trendelenburg. - Was placed on oximask from 2 L via NC and sating in low 90s on 11/27, but now is ON NASAL CANNULA - WBC slightly elevated at 9.2, afebrile on admission. WBC decreased to 8 on 11/28 - RLE appears to be worse than the left with ecchymosis as well as new fluid blisters - Will continue vancomycin and zosyn IV - Wound consult - Check MRSA swab - Follow BCx x 2 -Patient clinically appears to be improving. will transfer off the ICU. (3) Elevated troponin: - Admit to tele for observation for r/o - Trend cardiac biomarkers, initial set was slightly elevated at 0.209, previously around 0.06-0.07 The .209 was the peak. - EKG reviewed as above - Check 2 D echo ordered - PT/OT consulted - Pt reports having musculoskeletal pain in the past, and is tender with palpation over the chest wall so possibly partially contributing. (4) CAD (coronary artery disease), [place] coronary artery: - Cont aspirin 81 mg, amiodarone 200 mg, Coreg 6.25 mg PO BID Bumex and metolazone is currently on hold. may consider restarting on 11/29. On last admision, patient was not making significant urine. Plan is for dialysis on 11/29 (5) HLD (hyperlipidemia): - Cont simvastatin 40 mg daily (6) Ischemic cardiomyopathy: - Cont CREATIVE PROJECT MANAGER meds as above - Follow troponins as above (7) Pulmonary hypertension: - Stable (8) Mitral regurgitation: - Stable (9) GERD (gastroesophageal reflux disease): (10) Aortic stenosis: (11) Chronic combined systolic and diastolic CHF (congestive heart failure): - Last EF of 25-30% - recheck echo as above, pt appears to be slightly volume overloaded in BLE (12) Diabetes: - ISS with accuchecks, achs - Continue Lantus 35 U HS. (13) Atrial fibrillation: - Continue on eliquis 2.5 mg BID (14) Hypothyroidism: - Cont levothyroxine 75 mcg daily (15) CKD (chronic kidney disease): - Stage IV, on HD T-Th-Sat - only got 2.5 hours compared to routine 4 hours normally today due to generalized ill feeling and worsening lower extremity pain, chest pain. - Nephro consulted - may need extra dialysis session in AM. - Cr. 2.16 upon admission, monitor with daily prp up tp 2.3 (2/3) (16) DVT prophylaxis: -teds, scds, continue eliquis spent 35 minutes in management of patient. Subjective Patient reports breathing better today. D/W nurse, maintaining blood pressures and is on nasal cannula. D/W securities settlement processor, ok for transfer to floor. Constitutional: + fever, + chills, + sweats and + fatigue Cardiovascular: + chest pain (central and moving to the left, constant, rated 6/ 10), + dyspnea at rest and + edema; no chest pain with activity, no palpitations , no lightheadedness and no syncope Musculoskeletal: + back pain (chronic, lower) and + swelling; no joint pain and no muscle weakness Physical Exam 2 Vital Signs (Past 24 Hours): Last Vital Signs Temp 36.3 C L 11/28/18 23:01 Pulse 85 11/28/18 23:01 Resp 22 11/28/18 23:01 BP 112/70 11/28/18 23:01 Pulse Ox 94 11/28/18 23:01 Physical Exam: Constitutional: WD/WN, vitals as above no longer in distress, Eyes: normal visual galo by confrontation and + anicteric sclerae Neck: normal visual inspection and trachea midline Respiratory: normal respiratory effort, lungs clear to auscultation Cardiovascular: Rate/Rhythm: regular rate and regular rhythm Gastrointestinal (Abdomen): Inspection/Auscultation: abdomen not distended Percussion/Palpation: abdomen soft; abdomen nontender Musculoskeletal: Head/Neck/Chest: normocephalic and head atraumatic Neg for peripheral LE edema, + pedal pulses Skin: b/l LE with areas of redness. currently both have dry dressing. Neurologic: awake; not confused Speech / Cognition: normal speech Psychiatric: A+Ox3, euthymic affect _ (1) Atrial fibrillation Atrial fibrillation type: permanent Qualified Code(s): I48.2 - Chronic atrial fibrillation (2) Mitral regurgitation Cardiac valve disease etiology: etiology unspecified Qualified Code(s): I34.0 - Nonrheumatic mitral (valve) insufficiency (3) CKD (chronic kidney disease) Chronic kidney disease stage: stage 4 (severe) Qualified Code(s): N18.4 - Chronic kidney disease, stage 4 (severe)
[2018-11-29] MEDS: PIPERACILLIN/TAZOBACTAM 4.5 GM in DEXTROSE 5% 100 ML IV SCH ×2 (01:49→13:49)
[2018-11-29 04:47] LABS: BUN Creatinine Ratio 24.8 (10-20); Calcium 8.2 mg/dl (8.5-10.1); Creatinine Clr Calc Pharmacy 29.2 ml/min; Est GFR (African American) 28.6; Est GFR (Non-African American) 24.6; Potassium 4.1 mmol/L (3.5-5.1)
[2018-11-29 04:49] LABS: Albumin Globulin Ratio 0.5 (0.9-2); Bilirubin,Total 1.6 mg/dl (0.2-1); Globulin 4.1 gm/dl (2.5-4.0); Total Protein 6.1 gm/dl (6.4-8.2)
[2018-11-29 04:55] LABS: Hematocrit (blood only) 39.7 % (42-52); Hemoglobin 12.4 g/dL (14.0-18.0); Mean Corpuscular Hgb Conc 31.2 g/dL (32-36); Mean Corpuscular Volume 92.8 fL (80-100); Platelet Count 90 K/uL (130-400); Red Blood Count 4.28 M/uL (4.7-6.1); White Blood Count 7.38 K/uL (4.8-10.8)
[2018-11-29] MEDS: CLINDAMYCIN 600 MG in DEXTROSE 5% 50 ML IV SCH (06:22)
[2018-11-29] MEDS: LEVOTHYROXINE SODIUM 75 MCG TABLET PO SCH (06:22)
[2018-11-29] MEDS: CARVEDILOL 6.25 MG TAB PO SCH ×2 (08:09→17:09)
[2018-11-29] MEDS: DOCUSATE SODIUM 100 MG CAP PO SCH ×2 (08:09→20:37)
[2018-11-29] MEDS: ASPIRIN 81 MG ECTAB PO SCH (08:10)
[2018-11-29] MEDS: FLUOCINONIDE 0.05% CR 15 GM TUBE EXT SCH (08:10)
[2018-11-29] MEDS: APIXABAN 2.5 MG TAB PO SCH ×2 (08:10→20:46)
[2018-11-29] MEDS: CALCITRIOL 0.25 MCG CAPSULE PO SCH (08:12)
[2018-11-29] MEDS: AMIODARONE 200 MG TAB PO SCH (08:12)
[2018-11-29] MEDS: ALLOPURINOL 100 MG TAB PO SCH ×2 (08:12→20:37)
[2018-11-29] MEDS: NEPHROCAPS PO SCH (08:12)
[2018-11-29] MEDS: POLYETHYLENE (MIRALAX) 17 GM PACK PO SCH (08:12)
[2018-11-29] MEDS: INSULIN ASPART 100 UNITS/ML 3 ML PEN SC SCH ×4 (08:26→20:38)
[2018-11-29] MEDS: ACETAMINOPHEN 325 MG TAB PO PRN ×2 (08:39→19:21)
[2018-11-29] MEDS ORDERED: metOLazone 2.5 MG TABLET PO SCH (09:00)
[2018-11-29] MEDS ORDERED: SODIUM CHLORIDE 0.9% 1000ML 1,000 ML IV PRN (10:03)
--- NOTE | 2018-11-29 10:48 | Nephrology Progress Note ---
Date of Service November 29, 2018 Assessment & Plan (1) ESRD (end stage renal disease) on dialysis: ESRD on HD TTS. Admitted with lower extremity cellulitis, culture grow Klebsiella blood culture negative. -- slightly volume overloaded however breathing comfortably 4 liter nasal oxygen. Electrolyte acceptable. Blood pressure relatively low but asymptomatic. No acute indication for HD today. Plan for dialysis tomorrow his regular schedule --continue on Bumex 2 milligram twice a day -- Empiric Zosyn & Clindamycin therapy. Dosing as per pharmacy clinical specialist. Narrow spectrum based on culture finding (2) Angina pectoris, unspecified: (3) Cellulitis: (4) S/P admission to ICU (intensive care unit): Ramírez Grimes was seen and examined in his with his at bedside. Discussed over telephone with his daughter. Has been feeling about the same, mainly feels weak however denies any significant shortness of breath chest pain. Did not have any episode of fever or chills. Blood pressure remained relatively low,did not require pressor. Review of Systems Detail ROS was negative except above. Physical Exam 2 Vital Signs (Past 24 Hours): Last Vital Signs Temp 36.3 C L 11/29/18 08:00 Pulse 92 H 11/29/18 08:00 Resp 22 11/29/18 08:00 BP 84/63 L 11/29/18 08:00 Pulse Ox 92 11/29/18 03:20 Constitutional: WD/WN, vitals as above Respiratory: Auscultation: + diminished lung sounds Cardiovascular: Heart Sounds: normal S1 and normal S2 Extremities: + edema Skin: + ulcer and + erythema Neurologic: moves all extremities and awake Psychiatric: Orientation: alert and oriented x 3 _ (1) Cellulitis Laterality: right Site of cellulitis: extremity Site of cellulitis of extremity: lower extremity Site of cellulitis of trunk: Qualified Code(s): L03.115 - Cellulitis of right lower limb
[2018-11-29] MEDS: MAGNESIUM HYDROXIDE SUSP 30 ML UDC PO PRN (11:11)
--- NOTE | 2018-11-29 11:49 | Pharmacy Report ---
Pharmacy Glycemic Short Note 2 - Date of Service November 29, 2018 - Glycemic Short BSG Results (Last 24 hours): 11/28/18 11/28/18 11/28/18 11:26 16:32 20:21 Glucose POC Glucose 182 H 118 H 122 H 11/29/18 11/29/18 11/29/18 04:22 07:19 11:14 Glucose 106 H POC Glucose 134 H 135 H OUTPATIENT ANTIDIABETIC REGIMEN: * Lantus 35 units SQ HS * Novolog SQ ACHS per scale * A1c = 6.8% 11/06/18 CURRENT ORDERS: * Lantus 40 units Q HS * Novolog SQ ACHS * Goal range: 120 -160 mg/dL * Correction factor: 20mg/dL/unit * Carb ratio: 1 unit per 7gm CHO ASSESSMENT: 11/29/18 * Type 2 diabetic admitted with sepsis from R leg cellulitis * Glycemic control has been acceptable over the last 24 hrs, all BSGs but one < 180 * Fasting BSG at goal this AM w/ 40 units of Lantus on board - slightly higher than out-pt dose. Will continue the same for now * Post-prandial BSGs well controlled w/ current Novolog CF/Cr - no change PLAN FOR INPATIENT GLYCEMIC CONTROL: * Basal insulin * Lantus 40 units SQ Q HS * Bolus insulin * NovoLog per scale ACHS or Q6hrs while NPO * Goal Range: Low 120 mg/dL - High 160 mg/dL * Correction Factor: 20 mg/dL/unit * Nutritional / Prandial insulin per carb ratio of 1 unit per 7 grams CHO consumed PLAN FOR DISCHARGE: * May resume home Lantus + Novolog regimen
--- NOTE | 2018-11-29 11:55 | Palliative Care Consultation ---
Date of Consultation November 29, 2018 Assessment & Plan (1) Goals of care, counseling/discussion: -78 year old male with PMH CAD, ischemic cardiomyopathy with an EF of 25- 30%, chronic systolic CHF, biventricular ICD implantation, ventricular tachycardia, chronic atrial fibrillation, pulmonary hypertension, hypercholesterolemia, CAD with LAD stent x 2, moderate left ear and MR, insulin- dependent diabetes, CKD stage V on hemodialysis, GERD, arthritis, presented from his routine dialysis treatment that he was unable to complete due to worsening bilateral LE pain and edema. Upon arrival, patient found to have elevated lactate and troponin. Bilateral LE cellulitis noted, cultures taken and are growing Klebsiella. BP began to drop while in ED, presumably due to sepsis. Patient admitted to ICU for pressors and septic shock. Of note, patient' s EF is 25%, so fluid resuscitation is complicated. ICU providers discussed with patient and family about having a central line placed for fluid and pressors, patient declined. Palliative care consulted to discuss goals of care. -I met with patient, his Nic, and daughter Ofe Frye (via phone ) in room 105. We used translation services device for assistance. Intially, the patient's and daughter said they could translate, but it became apparent that they were not able to fully understand. They did then agree to using equity analyst. -Patient states he is the type of person who does not want invasive/aggressive measures unless absolutely necessary. He does not have a living will, but certainly would not want any life-prolonging measures once there is little hope of meaningful recovery. However, at this time, he is still ok with trial of full treatment and continuing with dialysis. He is still fairly independent although recently he has felt less able to do everything he once did. -Discussed CODE STATUS, in the event of cardiac arrest patient would not want CPR or intubation. He will remain a DO NOT RESUSCITATE. -POLST form completed as follows: DNR, full treatment with additional order "avoid ventilator. Trial of full treatment unless little hope of meaningful recovery, at which time make me comfortable," abx if life can be prolonged, and trial period of artificial fluid/nutrition. -Patient stated that his Nic Davidson and daughter Ofe Frye are able to make decisions for him if he is unable. Ofe speaks the best [place], so she is primary contact. -For now, continue with current treatment. Goal is for [facility] rehab and eventually get back home. We did discuss his chronic conditions, but due to language barrier, it is difficult to understand patient and family's insight into his health and the future. Ongoing conversations should be had. (2) ESRD (end stage renal disease) on dialysis: (3) Cellulitis: Laterality: right Site of cellulitis: extremity Site of cellulitis of extremity: lower extremity Site of cellulitis of trunk: Qualified Code(s): L03.115 - Cellulitis of right lower limb (4) Cellulitis: (5) Sepsis: Sepsis type: sepsis due to unspecified organism Qualified Code(s) : A41.9 - Sepsis, unspecified organism (6) CHF exacerbation: Heart failure type: systolic Qualified Code(s): I50.23 - Acute on chronic systolic (congestive) heart failure Supervising Physician Co-Signing Physician Notes Chart reviewed, patient seen and examined-patient's at bedside Collaborated with HODA Luz PE: Patient awake and alert, increased work of breathing Respiratory: Patient with increased work of breathing, on O2 at 6 L CV: Regular rate, hypotensive, weeping edema bilateral lower extremities Abdomen soft, nontender Neuro patient is awake and alert Agree with above note, assessment and plan as per HODA Luz. Patient's able to communicate basic information in [place]-for any decision making patient and family were require translation services Will continue to follow and assist family with medical decision making. History of Present Illness Attending Physician: Parminder Gutierrez DO History of Present Illness This 78 year old male with PMH CAD, ischemic cardiomyopathy with an EF of 25-30% , chronic systolic CHF, biventricular ICD implantation, ventricular tachycardia , chronic atrial fibrillation, pulmonary hypertension, hypercholesterolemia, CAD with LAD stent x 2, moderate left ear and MR, insulin-dependent diabetes, CKD stage V on hemodialysis, GERD, arthritis, presented from his routine dialysis treatment that he was unable to complete due to worsening bilateral LE pain and edema. Upon arrival, patient found to have elevated lactate and troponin. Bilateral LE cellulitis noted, cultures taken and are growing Klebsiella. BP began to drop while in ED, presumably due to sepsis. Patient admitted to ICU for pressors and septic shock. Of note, patient's EF is 25%, so fluid resuscitation is complicated. ICU providers discussed with patient and family about having a central line placed for fluid and pressors, patient declined. Palliative care consulted to discuss goals of care. See A&P for details of conversation. Thank you kindly for this consult. We will follow as needed. Allergies Allergy/AdvReac Type Severity Reaction Status Date / Time No Known Allergies Allergy Verified 11/18/18 09:32 Home Medications Home Medications Medication Instructions Recorded Confirmed Type allopurinol 100 mg PO BID 07/13/18 11/27/18 History amiodarone 200 mg PO QDL 07/13/18 11/27/18 History aspirin [Aspirin Low Dose] 81 mg PO UD 07/13/18 11/27/18 History calcitriol 0.5 mcg PO QAM 07/13/18 11/27/18 History insulin glargine [Basaglar KwikPen 35 unit SUBCUT HS 07/13/18 11/27/18 History U-100 Insulin] levothyroxine 75 mcg PO QAM 07/13/18 11/27/18 History potassium chloride 40 meq PO BID 07/13/18 11/27/18 History simvastatin 40 mg PO HS 07/13/18 11/27/18 History zolpidem 1.25 mg PO DIRECTED PRN 07/13/18 11/27/18 History polyethylene glycol 3350 [Miralax] 17 g PO DAILY #30 ea 07/15/18 11/27/18 Rx flaxseed oil 1,000 mg PO TID 10/05/18 11/27/18 History nitroglycerin 1 tab SUBLINGUAL DAILY PRN 10/05/18 11/27/18 History docusate sodium [Colace] 100 mg PO BID 11/05/18 11/27/18 History B complex with C#20-folic acid 1 cap PO QAM #90 cap 11/15/18 11/27/18 Rx [Renal Caps] apixaban [Eliquis] 2.5 mg PO BID #60 tab 11/15/18 11/27/18 Rx bumetanide 2 mg PO BID #60 tab 11/15/18 11/27/18 Rx insulin aspart U-100 [Novolog 1 units SC ACHS #1 pen 11/15/18 11/27/18 Rx Flexpen U-100 Insulin] metolazone 2.5 mg PO WK 11/18/18 11/27/18 History carvedilol 6.25 mg PO BIDM 11/27/18 11/27/18 History fluocinonide 1 applic TOPICAL UD 11/27/18 11/27/18 History ipratropium-albuterol [Combivent 1 puff INHALATION Q6 PRN 11/27/18 11/27/18 History Respimat] Patient History Medical History Septic shock Cellulitis Elevated troponin Diabetes CAD (coronary artery disease), [place] coronary artery Atrial fibrillation (Chronic) Hypothyroidism HLD (hyperlipidemia) (Chronic) Aortic stenosis (Chronic) GERD (gastroesophageal reflux disease) (Chronic) Chronic combined systolic and diastolic CHF (congestive heart failure) (Chronic) CKD (chronic kidney disease), stage III (Chronic) Ischemic cardiomyopathy (Chronic) Pulmonary hypertension (Chronic) Arthritis (Chronic) Diabetes Surgical History S/P cardiac pacemaker procedure Family History Other Family history non-contributory Social History marital status: Current Living Situation: Spouse Other Information That Helps Us Care for You: No Feels Safe at Home: Yes Safety Concerns: Afraid for Self Smoking Status: Never smoker Second Hand Exposure: No Hx Alcohol Use: No Hx Substance Use: No Beliefs That Will Affect Care: None Communication Ability: Effective Review of Systems Constitutional: no fever and no chills Respiratory: + dyspnea on exertion; no cough and no dyspnea Cardiovascular: + edema; no chest pain Gastrointestinal: no abdominal pain, no nausea and no vomiting bilateral LE edema and weeping Neurologic: no confusion Psychiatric: no depression and no anxiety Physical Exam 2 Vital Signs (Past 24 Hours): Last Vital Signs Temp 36.3 C L 11/29/18 08:00 Pulse 92 H 11/29/18 08:00 Resp 22 11/29/18 08:00 BP 84/63 L 11/29/18 08:00 Pulse Ox 92 11/29/18 03:20 Constitutional: comfortable and + overweight; no acute distress Eyes: PERRL ENMT: Ears: + hearing impairment (right ear hard of hearing) Neck: normal visual inspection and trachea midline Respiratory: normal respiratory effort; no respiratory distress and no labored breathing Auscultation: lungs clear to auscultation bilaterally Cardiovascular: Rate/Rhythm: regular rate and regular rhythm Vessels: no JVD Extremities: + edema (BLE +3-4 edema but are covered with dressings) Gastrointestinal (Abdomen): Inspection/Auscultation: abdomen normal to inspection, + abdomen distended (obesely distended) and normal bowel sounds Percussion/Palpation: abdomen soft; abdomen nontender Skin: unable to visualize bilateral legs as they are covered with dressings. Neurologic: awake; not confused Psychiatric: Orientation: alert and oriented x 3 Insight: + limited insight (especially due to language barrier) Time Spent Midlevel 120 minutes with >50% of time spent at bedside with patient and family discussing goals of care.
--- NOTE | 2018-11-29 11:59 | Pharmacy Report ---
Pharmacy Glycemic Short Note 2 - Date of Service November 29, 2018 - Glycemic Short BSG Results (Last 24 hours): 11/28/18 11/28/18 11/28/18 11:26 16:32 20:21 Glucose POC Glucose 182 H 118 H 122 H 11/29/18 11/29/18 11/29/18 04:22 07:19 11:14 Glucose 106 H POC Glucose 134 H 135 H OUTPATIENT ANTIDIABETIC REGIMEN: * ASSESSMENT: * PLAN FOR INPATIENT GLYCEMIC CONTROL: * Hold outpatient oral diabetes medications * Basal insulin * Lantus [] units SQ BID * Bolus insulin * NovoLog per scale ACHS or Q6hrs while NPO * Goal Range: Low [] mg/dL - High [] mg/dL * Correction Factor: [] mg/dL/unit * Nutritional / Prandial insulin per carb ratio of 1 unit per [] grams CHO consumed PLAN FOR DISCHARGE: *
[2018-11-29] MEDS ORDERED: VANCOMYCIN HCL 750 MG in SODIUM CHLORIDE 0.9% 250 ML IV ONE (14:00)
--- NOTE | 2018-11-29 16:18 | Hospitalist Progress Note ---
Date of Service November 29, 2018 Assessment & Plan (1) Septic shock: shock resolved, BP maintained off of pressors wound culture grew Klebsiella but both sets of blood cultures negative taper antibiotics to just Zosyn WBC normal, no fever cellulitis improving (2) Cellulitis: skin improving slowly, less redness still with venous stasis ulcer, wound care following continue Zosyn, treat with antibiotics for 14 days total, perhaps longer based on slow clinical response (3) Elevated troponin: troponin peaked at 0.2 no new wall motion abnormalities likely demand ischemia in setting of hypotension, septic shock (4) CAD (coronary artery disease), [place] coronary artery: - Cont aspirin 81 mg, amiodarone 200 mg, Coreg 6.25 mg PO BID (5) HLD (hyperlipidemia): - Cont simvastatin 40 mg daily (6) Ischemic cardiomyopathy: continue Bumex volume overloaded currently utilizing HD for fluid removal continue Coreg (7) Pulmonary hypertension: - Stable (8) Mitral regurgitation: - Stable (9) GERD (gastroesophageal reflux disease): (10) Aortic stenosis: (11) Chronic combined systolic and diastolic CHF (congestive heart failure): - EF is 20-25% on echo today (12) Diabetes: - ISS with accuchecks, achs - Continue Lantus 35 U HS. (13) Atrial fibrillation: - Continue on eliquis 2.5 mg BID continue Coreg and Amiodarone (14) Hypothyroidism: - Cont levothyroxine 75 mcg daily (15) CKD (chronic kidney disease): - Stage IV, on HD T-Th-Sat: plan for HD tomorrow as normally scheduled - Nephro consulted (16) DVT prophylaxis: -teds, scds, continue eliquis Plan: palliative consult today, POLST completed, DNR now patient and family would like patient to recover and go to rehab he will likely be here all week to recover will get PT/OT evaluations when ready Subjective patient resting in bed, has some labored breathing but denies difficulty no chest pain today his appetite is poor discussed case with palliative care and nephrology, appreciate their recommendations no HD today, plan for tomorrow POLST completed, patient is DNR, wants aggressive measures but no ventilation, no custodial support reviewed labs today Review of Systems All systems reviewed & are unremarkable except as noted in HPI & below Constitutional: + fatigue and + weakness Cardiovascular: + dyspnea, + orthopnea and + edema; no chest pain Physical Exam 2 Vital Signs (Past 24 Hours): Last Vital Signs Temp 36.5 C 11/29/18 16:00 Pulse 76 11/29/18 16:00 Resp 22 11/29/18 16:00 BP 106/68 11/29/18 16:00 Pulse Ox 96 11/29/18 16:00 Constitutional: WD/WN, vitals as above + acute distress (mild) Eyes: PERRL, conjunctivae normal, anicteric sclerae ENMT: external ear and nose normal, oropharynx normal Neck: trachea midline, no thyromegaly Respiratory: + respiratory distress (mild) and + labored breathing; no cough Auscultation: + diminished lung sounds and + rales (bases) Cardiovascular: Rate/Rhythm: regular rate and regular rhythm Vessels: normal peripheral pulses Extremities: + pedal edema (pitting to the knees bilaterally) Gastrointestinal (Abdomen): normal bowel sounds, soft, nontender, no hepatosplenomegaly Musculoskeletal: no cyanosis or clubbing, extremities motor strength 5/5 Skin: + rash (bilateral venous stasis ulcers, erythema, warm and tender) Neurologic: patellar DTR's 2+ bilat, sensation intact and PERRL, EOMI, accommodation nl, no face palsy, no dysarthria Psychiatric: A+Ox3, euthymic affect Lymphatic: no cervical or axillary lymphadenopathy Results & Data Laboratory Results Laboratory Results - last 24 hr 11/28/18 11/28/18 11/28/18 16:32 17:58 20:21 WBC RBC Hgb Hct MCV MCH MCHC Plt Count Platelet Estimate Sodium Potassium Chloride Carbon Dioxide Anion Gap BUN Creatinine Est Cr Clr Drug Dosing Est GFR ( Amer) Est GFR (Non-Af Amer) BUN/Creatinine Ratio Glucose POC Glucose 118 H 122 H Calcium Total Bilirubin AST ALT Alkaline Phosphatase Total Protein Albumin Globulin Albumin/Globulin Ratio Random Vancomycin 12.8 11/29/18 11/29/18 11/29/18 04:22 04:22 07:19 WBC 7.38 RBC 4.28 L Hgb 12.4 L Hct 39.7 L MCV 92.8 MCH 29.0 MCHC 31.2 L Plt Count 90 L Platelet Estimate Decreased Sodium 131 L Potassium 4.1 Chloride 100 Carbon Dioxide 26 Anion Gap 5.0 BUN 61 H Creatinine 2.45 H Est Cr Clr Drug Dosing 29.2 Est GFR ( Amer) 28.6 Est GFR (Non-Af Amer) 24.6 BUN/Creatinine Ratio 24.8 H Glucose 106 H POC Glucose 134 H Calcium 8.2 L Total Bilirubin 1.6 H AST 29 ALT 39 Alkaline Phosphatase 95 Total Protein 6.1 L Albumin 2.0 L Globulin 4.1 H Albumin/Globulin Ratio 0.5 L Random Vancomycin 11/29/18 11:14 WBC RBC Hgb Hct MCV MCH MCHC Plt Count Platelet Estimate Sodium Potassium Chloride Carbon Dioxide Anion Gap BUN Creatinine Est Cr Clr Drug Dosing Est GFR ( Amer) Est GFR (Non-Af Amer) BUN/Creatinine Ratio Glucose POC Glucose 135 H Calcium Total Bilirubin AST ALT Alkaline Phosphatase Total Protein Albumin Globulin Albumin/Globulin Ratio Random Vancomycin Medications Administered Current Inpatient Medications Acetaminophen (Tylenol) 650 mg PO Q4H PRN PRN Reason: Moderate Pain Stop: 12/27/18 21:30 Last Admin: 11/29/18 08:39 Dose: 650 mg Albuterol (Combivent Respimat) 1 puffs INH Q6 PRN PRN Reason: Shortness Of Breath Stop: 12/27/18 21:30 Albuterol (Duoneb) 3 ml NEB Q4R PRN PRN Reason: Shortness Of Breath Or Wheezin Stop: 12/27/18 21:30 Allopurinol (Zyloprim) 100 mg PO BID [facility] Stop: 12/27/18 21:30 Last Admin: 11/29/18 08:12 Dose: 100 mg Amiodarone HCl (Cordarone) 200 mg PO QDL [facility] Stop: 12/28/18 11:29 Last Admin: 11/29/18 08:12 Dose: 200 mg Apixaban (Eliquis) 2.5 mg PO BID [facility] Stop: 12/27/18 21:30 Last Admin: 11/29/18 08:10 Dose: 2.5 mg Aspirin (Ecotrin Ectab) 81 mg PO DAILY [facility] Stop: 12/28/18 10:59 Last Admin: 11/29/18 08:10 Dose: 81 mg Bumetanide (Bumex) 2 mg PO BID [facility] Stop: 12/27/18 21:30 Last Admin: 11/28/18 07:18 Dose: Not Given Calcitriol (Racaltrol) 0.5 mcg PO QAM [facility] Stop: 12/28/18 08:59 Last Admin: 11/29/18 08:12 Dose: 0.5 mcg Carvedilol (Coreg) 6.25 mg PO BIDM [facility] Stop: 12/28/18 07:59 Last Admin: 11/29/18 08:09 Dose: Not Given Dextrose (Dextrose 50%) 25 - 50 ml IV UD PRN; Protocol PRN Reason: Hypoglycemia Protocol Stop: 12/27/18 21:30 Docusate Sodium (Colace) 100 mg PO BID [facility] Stop: 12/27/18 21:30 Last Admin: 11/29/18 08:09 Dose: 100 mg Fluocinonide (Lidex 0.5%) 1 appln EXT DAILY [facility] Stop: 12/29/18 08:59 Last Admin: 11/29/18 08:10 Dose: 1 appln Glucagon (Glucagen) 1 mg SQ UD PRN; Protocol PRN Reason: Hypoglycemia Protocol Stop: 12/27/18 21:30 Glucose (Glucose 40%) 15 - 30 gm PO UD PRN; Protocol PRN Reason: Hypoglycemia Protocol Stop: 12/27/18 21:30 Glucose (Dex4 Glucose) 4 - 8 tabs PO UD PRN; Protocol PRN Reason: Hypoglycemia Protocol Stop: 12/27/18 21:30 Piperacillin Sod/Tazobactam (Sod 4.5 gm/ Dextrose) 120 mls @ 30 mls/hr IV Q12H [facility]; Protocol Stop: 12/08/18 01:59 Last Admin: 11/29/18 13:49 Dose: 30 mls/hr Insulin Aspart (Novolog Flexpen) 0 units SC ACHS [facility]; Protocol Stop: 12/27/18 23:29 Last Admin: 11/29/18 11:53 Dose: 10 units Insulin Glargine (Lantus Solostar Pen) 40 units SQ HS [facility]; Protocol Stop: 12/27/18 23:29 Last Admin: 11/28/18 20:36 Dose: 40 units Levothyroxine Sodium (Synthroid) 75 mcg PO DAILYBB [facility] Stop: 12/28/18 06:29 Last Admin: 11/29/18 06:22 Dose: 75 mcg Magnesium Hydroxide (Milk Of Magnesia) 30 ml PO Q6H PRN PRN Reason: Indigestion Stop: 12/28/18 09:44 Last Admin: 11/29/18 11:11 Dose: 30 ml Metolazone (Zaroxolyn) 2.5 mg PO Mo@0900 [facility] Stop: 12/29/18 08:59 Miscellaneous (Carbohydrates For Hypoglycemia) 15 - 30 gm PO UD PRN PRN Reason: Hypoglycemia Treatment Stop: 12/27/18 21:30 Miscellaneous Information (Consult) 1 ea N/A UD PRN PRN Reason: Consult Stop: 12/27/18 21:56 Miscellaneous Information (Consult Glycemic Management Pharmacy) 1 ea N/A UD PRN PRN Reason: Consult Stop: 12/27/18 21:56 Nitroglycerin (Nitrostat) 0.4 mg SL DAILY PRN PRN Reason: Chest Pain Stop: 12/27/18 21:30 Ondansetron HCl (Zofran) 4 mg IV Q4H PRN PRN Reason: Nausea And Vomiting Stop: 12/27/18 21:30 Polyethylene Glycol (Miralax Powder Packet) 17 gm PO DAILY [facility] Stop: 12/28/18 08:59 Last Admin: 11/29/18 08:12 Dose: Not Given Potassium Chloride (Klor-Con M20) 40 meq PO BID [facility] Stop: 12/27/18 21:30 Last Admin: 11/28/18 08:23 Dose: Not Given Simvastatin (Zocor) 40 mg PO HS [facility] Stop: 12/27/18 21:30 Last Admin: 11/28/18 20:33 Dose: 40 mg Vitamin B Complex/Folic Acid (Nephrocaps) 1 cap PO QAM [facility] Stop: 12/28/18 08:59 Last Admin: 11/29/18 08:12 Dose: 1 cap Zolpidem Tartrate (Ambien) 1.25 mg PO HSZ PRN PRN Reason: Insomnia Stop: 12/27/18 21:30 Last Admin: 11/28/18 23:16 Dose: 1.25 mg _ (1) Atrial fibrillation Atrial fibrillation type: permanent Qualified Code(s): I48.2 - Chronic atrial fibrillation (2) Mitral regurgitation Cardiac valve disease etiology: etiology unspecified Qualified Code(s): I34.0 - Nonrheumatic mitral (valve) insufficiency (3) CKD (chronic kidney disease) Chronic kidney disease stage: stage 4 (severe) Qualified Code(s): N18.4 - Chronic kidney disease, stage 4 (severe)
[2018-11-29] MEDS: SIMVASTATIN 40 MG TAB PO SCH (20:55)
[2018-11-29] MEDS: INSULIN GLARGINE SOLOSTAR 100 UNITS/ML 3 ML PEN SQ SCH (20:56)
[2018-11-29] MEDS: HYDROCODONE/ACETAMOPHEN 5/325MG TAB PO PRN (21:16)
[2018-11-29] MEDS: IPRATROPIUM BROMIDE/ALBUTEROL respimat INH INH PRN (21:16)
[2018-11-29] MEDS: ZOLPIDEM TARTRATE 5 MG TAB PO PRN (23:13)
[2018-11-30] MEDS: PIPERACILLIN/TAZOBACTAM 4.5 GM in DEXTROSE 5% 100 ML IV SCH ×2 (00:57→14:02)
[2018-11-30] MEDS: HYDROCODONE/ACETAMOPHEN 5/325MG TAB PO PRN ×2 (00:57→13:13)
[2018-11-30 04:32] LABS: Hematocrit (blood only) 38.9 % (42-52); Hemoglobin 12.3 g/dL (14.0-18.0); Mean Corpuscular Hgb Conc 31.6 g/dL (32-36); Mean Corpuscular Volume 91.1 fL (80-100); Mean Platelet Volume 10.4 fL (7.4-10.4); Platelet Count 121 K/uL (130-400); RDW Coefficient of Variation 19.1 % (11.5-14.5); RDW Standard Deviation 62.9 fL (36.4-46.3); Red Blood Count 4.27 M/uL (4.7-6.1); White Blood Count 5.58 K/uL (4.8-10.8)
[2018-11-30 04:50] LABS: BUN Creatinine Ratio 28.3 (10-20); Calcium 8.2 mg/dl (8.5-10.1); Creatinine Clr Calc Pharmacy 25.4 ml/min; Est GFR (Non-African American) 20.7; Potassium 4.3 mmol/L (3.5-5.1)
[2018-11-30 04:53] LABS: Albumin Globulin Ratio 0.5 (0.9-2); Bilirubin,Total 1.8 mg/dl (0.2-1); Globulin 4.2 gm/dl (2.5-4.0); Total Protein 6.2 gm/dl (6.4-8.2)
[2018-11-30] MEDS: LEVOTHYROXINE SODIUM 75 MCG TABLET PO SCH (05:25)
[2018-11-30] MEDS: CALCITRIOL 0.25 MCG CAPSULE PO SCH (07:36)
[2018-11-30] MEDS: ALLOPURINOL 100 MG TAB PO SCH ×2 (07:36→21:04)
[2018-11-30] MEDS: CARVEDILOL 6.25 MG TAB PO SCH ×2 (07:36→16:08)
[2018-11-30] MEDS: DOCUSATE SODIUM 100 MG CAP PO SCH ×2 (07:37→21:04)
[2018-11-30] MEDS: FLUOCINONIDE 0.05% CR 15 GM TUBE EXT SCH (07:37)
[2018-11-30] MEDS: NEPHROCAPS PO SCH (07:37)
[2018-11-30] MEDS: APIXABAN 2.5 MG TAB PO SCH ×2 (07:37→21:05)
[2018-11-30] MEDS: ASPIRIN 81 MG ECTAB PO SCH (07:37)
[2018-11-30] MEDS: POLYETHYLENE (MIRALAX) 17 GM PACK PO SCH (07:49)
[2018-11-30] MEDS: MAGNESIUM HYDROXIDE SUSP 30 ML UDC PO PRN (07:50)
[2018-11-30] MEDS: INSULIN ASPART 100 UNITS/ML 3 ML PEN SC SCH ×4 (07:51→21:05)
--- NOTE | 2018-11-30 10:27 | Pharmacy Report ---
Pharmacy Glycemic Short Note 2 - Date of Service November 30, 2018 - Glycemic Short BSG Results (Last 24 hours): 11/29/18 11/29/18 11/29/18 11:14 16:06 20:35 Glucose POC Glucose 135 H 99 114 H 11/30/18 11/30/18 04:20 07:20 Glucose 74 POC Glucose 90 OUTPATIENT ANTIDIABETIC REGIMEN: * Basaglar 35 units SQ HS * Novolog SQ ACHS per scale 1 unit w/ each meal + correctional insulin ( 1 unit per 25mg/dL above 150) * A1c = 6.8% 11/06/18 CURRENT ORDERS: * Lantus 40 units Q HS * Novolog SQ ACHS * Goal range: 120 -160 mg/dL * Correction factor: 20mg/dL/unit * Carb ratio: 1 unit per 7gm CHO ASSESSMENT: 11/30 * BSGs have ranged 74-135 over the last 24 hrs * Fasting less than 100 today with 40 units of Lantus on board, will begin to titrate dosage downwards * Post-prandial BSGs at goal over last 2 days using current CF and CR - may need to lessen doses if BSGs below goal w/ excess basal on board 11/29 * Type 2 diabetic admitted with sepsis from R leg cellulitis * Glycemic control has been acceptable over the last 24 hrs, all BSGs but one < 180 * Fasting BSG at goal this AM w/ 40 units of Lantus on board - slightly higher than out-pt dose. Will continue the same for now * Post-prandial BSGs well controlled w/ current Novolog CF/Cr - no change PLAN FOR INPATIENT GLYCEMIC CONTROL: * Basal insulin (decrease 20%) * Lantus 32 units SQ Q HS * Bolus insulin * NovoLog per scale ACHS or Q6hrs while NPO * Goal Range: Low 120 mg/dL - High 160 mg/dL * Correction Factor: 25 mg/dL/unit * Nutritional / Prandial insulin per carb ratio of 1 unit per 8 grams CHO consumed PLAN FOR DISCHARGE: * Although A1c close to goal, bilingual interpreter did meet w/ patient and his . It appears that continuing the home Basaglar dose of 35 units daily would be appropriate. His Novolog dose with meals may need adjusted upwards based upon SMBG values post-prandially. I would estimate he would need at a minimum 4 units Novolog with each meal with this dose being titrated upwards by outpt provider. Bed Maker also provided patient with a written scale for correctional insulin.
--- NOTE | 2018-11-30 10:32 | Nephrology Progress Note ---
Date of Service November 30, 2018 Assessment & Plan (1) ESRD (end stage renal disease) on dialysis: ESRD on HD TTS. Admitted with lower extremity cellulitis, culture grow Klebsiella blood culture negative. -- volume overloaded however breathing comfortably 4 liter nasal oxygen. Electrolyte acceptable. Blood pressure better. -- dialysis this morning as his regular schedule with 3 K bath, aim for 2 L UF --continue on Bumex 2 milligram twice a day -- Empiric Zosyn & Clindamycin therapy. Dosing as per pharmacy intake technician. Narrow spectrum based on culture finding -- start on boost 1 can p.o. t.i.d. (2) Angina pectoris, unspecified: (3) Cellulitis: (4) S/P admission to ICU (intensive care unit): Ramírez Grimes was seen and examined in his with his at bedside. Has been having pain in bilateral lower extremity, however denies any significant shortness of breath or chest pain, no fever or chills. Blood pressure improved. Physical Exam 2 Vital Signs (Past 24 Hours): Last Vital Signs Temp 36.8 C 11/30/18 08:00 Pulse 82 11/30/18 08:00 Resp 14 11/30/18 08:00 BP 124/78 11/30/18 08:00 Pulse Ox 97 11/30/18 08:00 Constitutional: WD/WN, vitals as above Respiratory: Auscultation: + diminished lung sounds Cardiovascular: Heart Sounds: normal S1 and normal S2 Extremities: + edema Skin: + ulcer and + erythema Neurologic: moves all extremities and awake Psychiatric: Orientation: alert and oriented x 3 _ (1) Cellulitis Laterality: right Site of cellulitis: extremity Site of cellulitis of extremity: lower extremity Site of cellulitis of trunk: Qualified Code(s): L03.115 - Cellulitis of right lower limb
[2018-11-30] MEDS: AMIODARONE 200 MG TAB PO SCH (12:28)
--- NOTE | 2018-11-30 14:46 | Orthopedic Progress Note ---
Date of Service November 30, 2018 Assessment & Plan (1) Goals of care, counseling/discussion: (2) S/P admission to ICU (intensive care unit): (3) Angina pectoris, unspecified: (4) ESRD (end stage renal disease) on dialysis: (5) Thrombocytopenia: (6) Coronary artery disease: (7) Elevated troponin: (8) Elevated bilirubin: (9) Systolic heart failure: (10) Pleural effusion: (11) Pulmonary edema: (12) Shortness of breath: (13) Sepsis: (14) Elevated troponin: (15) Cellulitis: (16) Septic shock: (17) Cellulitis: (18) Elevated troponin: (19) Open fracture of finger: S/p partial digital amputation of right pinky finger distal phalanx by Dr Mathews. Patient missed office appointment for suture removal therefore we were asked to remove while pt is inhouse. At bedside, under sterile conditions, patient tolerated suture removal of right distal pinky finger. No bleeding. Two band aides were applied. Patient should keep dry fore next 24hrs and then may cleanse with soap and water prn. It is recommended patient be seen in our office approximately 2wks from now for wound check. Office #[phone]. (20) Diabetes: (21) CAD (coronary artery disease), [place] coronary artery: Subjective Patient admitted to ICU via Medicine. Ortho was asked to remove sutures to patient's right pinky fingertip. History of primary digital shortening amputation in ER on 11-16-[address] Mathews secondary to avulsion type injury of distal phalanx. Due to being in-house, he wasn't able to be seen in office yesterday for scheduled suture removal. Physical Exam 2 Vital Signs (Past 24 Hours): Last Vital Signs Temp 36.9 C 11/30/18 12:00 Pulse 75 11/30/18 13:30 Resp 16 11/30/18 12:00 BP 82/61 L 11/30/18 13:30 Pulse Ox 95 11/30/18 12:00 Physical Exam: Patient Alert and Oriented. Right pinky finger undressed. Dry, scabbed. Sutures intact. Able to move all fingers. NV intact R UE. _ (1) Sepsis Sepsis type: sepsis due to unspecified organism Qualified Code(s): A41.9 - Sepsis, unspecified organism (2) Cellulitis Laterality: right Site of cellulitis: extremity Site of cellulitis of extremity: lower extremity Site of cellulitis of trunk: Qualified Code(s): L03.115 - Cellulitis of right lower limb (3) Open fracture of finger Encounter type: initial encounter Finger: little finger Fracture alignment: displaced Fracture healing: Laterality: right Phalanx: distal Qualified Code(s): S62.636B - Displaced fracture of distal phalanx of right little finger , initial encounter for open fracture
--- NOTE | 2018-11-30 15:47 | Hospitalist Progress Note ---
Date of Service November 30, 2018 Assessment & Plan (1) Septic shock: shock resolved, BP maintained off of pressors wound culture grew Klebsiella but both sets of blood cultures negative taper antibiotics to just Zosyn WBC normal, no fever cellulitis improving can transfer out of ICU today, go to tele (2) Cellulitis: skin continues to improve, minimal redness still with venous stasis ulcer, wound care following continue Zosyn, treat with antibiotics for 14 days total, perhaps longer based on slow clinical response (3) Elevated troponin: troponin peaked at 0.2 no new wall motion abnormalities likely demand ischemia in setting of hypotension, septic shock (4) CAD (coronary artery disease), [place] coronary artery: - Cont aspirin 81 mg, amiodarone 200 mg, Coreg 6.25 mg PO BID no current chest pain (5) HLD (hyperlipidemia): - Cont simvastatin 40 mg daily (6) Ischemic cardiomyopathy: continue Bumex volume overloaded currently utilizing HD for fluid removal continue Coreg (7) Pulmonary hypertension: - Stable (8) Mitral regurgitation: - Stable (9) GERD (gastroesophageal reflux disease): (10) Aortic stenosis: (11) Chronic combined systolic and diastolic CHF (congestive heart failure): - EF is 20-25% on echo today (12) Diabetes: - ISS with accuchecks, achs - Continue Lantus 35 U HS. monitor for hypoglycemia, no recent episodes (13) Atrial fibrillation: - Continue on eliquis 2.5 mg BID continue Coreg and Amiodarone (14) Hypothyroidism: - Cont levothyroxine 75 mcg daily (15) CKD (chronic kidney disease): - Stage IV, on HD T-Th-Sat: received HD today - Nephro consulted (16) DVT prophylaxis: -teds, scds, continue eliquis Plan: palliative consult on 11/29, POLST completed, DNR now patient and family would like patient to recover and go to rehab he will likely be here all week to recover will get PT/OT evaluations when ready Subjective patient resting during hemodialysis today really tired denies chest pain, dyspnea still with lower extremity swelling and pain appetite is poor appreciate orthopedics seeing him for 5th finger, removed sutures reviewed labs, WBC normal Review of Systems All systems reviewed & are unremarkable except as noted in HPI & below Constitutional: + fatigue and + weakness Cardiovascular: + dyspnea on exertion and + edema; no chest pain Integumentary: + rash (bilateral legs) Physical Exam 2 Vital Signs (Past 24 Hours): Last Vital Signs Temp 36.5 C 11/30/18 15:31 Pulse 85 11/30/18 15:31 Resp 26 H 11/30/18 15:31 BP 105/91 11/30/18 15:31 Pulse Ox 92 11/30/18 15:31 Constitutional: WD/WN, vitals as above Eyes: PERRL, conjunctivae normal, anicteric sclerae ENMT: external ear and nose normal, oropharynx normal Neck: trachea midline, no thyromegaly Respiratory: no cough Auscultation: + diminished lung sounds and + rales ( bases) Cardiovascular: Rate/Rhythm: regular rate and regular rhythm Vessels: normal peripheral pulses Extremities: + pedal edema (pitting to the knees bilaterally) Gastrointestinal (Abdomen): normal bowel sounds, soft, nontender, no hepatosplenomegaly Musculoskeletal: no cyanosis or clubbing, extremities motor strength 5/5 Skin: + rash (bilateral venous stasis ulcers, erythema, warm and tender) Neurologic: patellar DTR's 2+ bilat, sensation intact and PERRL, EOMI, accommodation nl, no face palsy, no dysarthria Psychiatric: A+Ox3, euthymic affect Lymphatic: no cervical or axillary lymphadenopathy Results & Data Laboratory Results Laboratory Results - last 24 hr 11/29/18 11/29/18 11/30/18 16:06 20:35 04:20 WBC RBC Hgb Hct MCV MCH MCHC RDW Std Deviation RDW Coeff of Ebenezer Plt Count MPV Sodium 132 L Potassium 4.3 Chloride 99 Carbon Dioxide 26 Anion Gap 7.0 BUN 80 H Creatinine 2.83 H D Est Cr Clr Drug Dosing 25.4 Est GFR ( Amer) 24.0 Est GFR (Non-Af Amer) 20.7 BUN/Creatinine Ratio 28.3 H Glucose 74 POC Glucose 99 114 H Calcium 8.2 L Total Bilirubin 1.8 H AST 32 ALT 37 Alkaline Phosphatase 128 H Total Protein 6.2 L Albumin 2.0 L Globulin 4.2 H Albumin/Globulin Ratio 0.5 L Random Vancomycin 11/30/18 11/30/18 11/30/18 04:20 04:20 07:20 WBC 5.58 RBC 4.27 L Hgb 12.3 L Hct 38.9 L MCV 91.1 MCH 28.8 MCHC 31.6 L RDW Std Deviation 62.9 H RDW Coeff of Ebenezer 19.1 H Plt Count 121 L MPV 10.4 Sodium Potassium Chloride Carbon Dioxide Anion Gap BUN Creatinine Est Cr Clr Drug Dosing Est GFR ( Amer) Est GFR (Non-Af Amer) BUN/Creatinine Ratio Glucose POC Glucose 90 Calcium Total Bilirubin AST ALT Alkaline Phosphatase Total Protein Albumin Globulin Albumin/Globulin Ratio Random Vancomycin 6.8 Medications Administered Current Inpatient Medications Acetaminophen (Tylenol) 650 mg PO Q4H PRN PRN Reason: Moderate Pain Stop: 12/27/18 21:30 Last Admin: 11/29/18 19:21 Dose: 650 mg Hydrocodone Bitart/Acetaminophen ([place] 5/325) 1 tab PO Q4H PRN PRN Reason: Pain Stop: 12/13/18 20:59 Last Admin: 11/30/18 13:13 Dose: 1 tab Albuterol (Combivent Respimat) 1 puffs INH Q6 PRN PRN Reason: Shortness Of Breath Stop: 12/27/18 21:30 Last Admin: 11/29/18 21:16 Dose: 1 puffs Albuterol (Duoneb) 3 ml NEB Q4R PRN PRN Reason: Shortness Of Breath Or Wheezin Stop: 12/27/18 21:30 Allopurinol (Zyloprim) 100 mg PO BID [facility] Stop: 12/27/18 21:30 Last Admin: 11/30/18 07:36 Dose: 100 mg Amiodarone HCl (Cordarone) 200 mg PO QDL [facility] Stop: 12/28/18 11:29 Last Admin: 11/30/18 12:28 Dose: 200 mg Apixaban (Eliquis) 2.5 mg PO BID [facility] Stop: 12/27/18 21:30 Last Admin: 11/30/18 07:37 Dose: 2.5 mg Aspirin (Ecotrin Ectab) 81 mg PO DAILY [facility] Stop: 12/28/18 10:59 Last Admin: 11/30/18 07:37 Dose: 81 mg Bumetanide (Bumex) 2 mg PO BID [facility] Stop: 12/27/18 21:30 Last Admin: 11/28/18 07:18 Dose: Not Given Calcitriol (Racaltrol) 0.5 mcg PO QAM [facility] Stop: 12/28/18 08:59 Last Admin: 11/30/18 07:36 Dose: 0.5 mcg Carvedilol (Coreg) 6.25 mg PO BIDM [facility] Stop: 12/28/18 07:59 Last Admin: 11/30/18 07:36 Dose: 6.25 mg Dextrose (Dextrose 50%) 25 - 50 ml IV UD PRN; Protocol PRN Reason: Hypoglycemia Protocol Stop: 12/27/18 21:30 Docusate Sodium (Colace) 100 mg PO BID [facility] Stop: 12/27/18 21:30 Last Admin: 11/30/18 07:37 Dose: 100 mg Fluocinonide (Lidex 0.5%) 1 appln EXT DAILY [facility] Stop: 12/29/18 08:59 Last Admin: 11/30/18 07:37 Dose: 1 appln Glucagon (Glucagen) 1 mg SQ UD PRN; Protocol PRN Reason: Hypoglycemia Protocol Stop: 12/27/18 21:30 Glucose (Glucose 40%) 15 - 30 gm PO UD PRN; Protocol PRN Reason: Hypoglycemia Protocol Stop: 12/27/18 21:30 Glucose (Dex4 Glucose) 4 - 8 tabs PO UD PRN; Protocol PRN Reason: Hypoglycemia Protocol Stop: 12/27/18 21:30 Piperacillin Sod/Tazobactam (Sod 4.5 gm/ Dextrose) 120 mls @ 30 mls/hr IV Q12H [facility]; Protocol Stop: 12/08/18 01:59 Last Admin: 11/30/18 14:02 Dose: 30 mls/hr Insulin Aspart (Novolog Flexpen) 0 units SC ACHS [facility]; Protocol Stop: 12/27/18 23:29 Last Admin: 11/30/18 15:15 Dose: Not Given Insulin Glargine (Lantus Solostar Pen) 32 units SQ HS [facility]; Protocol Stop: 12/30/18 20:59 Levothyroxine Sodium (Synthroid) 75 mcg PO DAILYBB [facility] Stop: 12/28/18 06:29 Last Admin: 11/30/18 05:25 Dose: 75 mcg Magnesium Hydroxide (Milk Of Magnesia) 30 ml PO Q6H PRN PRN Reason: Indigestion Stop: 12/28/18 09:44 Last Admin: 11/30/18 07:50 Dose: 30 ml Metolazone (Zaroxolyn) 2.5 mg PO Mo@0900 [facility] Stop: 12/29/18 08:59 Miscellaneous (Carbohydrates For Hypoglycemia) 15 - 30 gm PO UD PRN PRN Reason: Hypoglycemia Treatment Stop: 12/27/18 21:30 Miscellaneous Information (Consult) 1 ea N/A UD PRN PRN Reason: Consult Stop: 12/27/18 21:56 Miscellaneous Information (Consult Glycemic Management Pharmacy) 1 ea N/A UD PRN PRN Reason: Consult Stop: 12/27/18 21:56 Nitroglycerin (Nitrostat) 0.4 mg SL DAILY PRN PRN Reason: Chest Pain Stop: 12/27/18 21:30 Ondansetron HCl (Zofran) 4 mg IV Q4H PRN PRN Reason: Nausea And Vomiting Stop: 12/27/18 21:30 Polyethylene Glycol (Miralax Powder Packet) 17 gm PO DAILY [facility] Stop: 12/28/18 08:59 Last Admin: 11/30/18 07:49 Dose: Not Given Potassium Chloride (Klor-Con M20) 40 meq PO BID [facility] Stop: 12/27/18 21:30 Last Admin: 11/28/18 08:23 Dose: Not Given Simvastatin (Zocor) 40 mg PO HS [facility] Stop: 12/27/18 21:30 Last Admin: 11/29/18 20:55 Dose: 40 mg Vitamin B Complex/Folic Acid (Nephrocaps) 1 cap PO QAM [facility] Stop: 12/28/18 08:59 Last Admin: 11/30/18 07:37 Dose: 1 cap Zolpidem Tartrate (Ambien) 1.25 mg PO HSZ PRN PRN Reason: Insomnia Stop: 12/27/18 21:30 Last Admin: 11/29/18 23:13 Dose: 1.25 mg _ (1) Mitral regurgitation Cardiac valve disease etiology: etiology unspecified Qualified Code(s): I34.0 - Nonrheumatic mitral (valve) insufficiency (2) Atrial fibrillation Atrial fibrillation type: permanent Qualified Code(s): I48.2 - Chronic atrial fibrillation (3) CKD (chronic kidney disease) Chronic kidney disease stage: stage 4 (severe) Qualified Code(s): N18.4 - Chronic kidney disease, stage 4 (severe)
[2018-11-30] MEDS: CARBOHYDRATES FOR HYPOGLYCEMIA PO PRN (16:07)
[2018-11-30] MEDS: POTASSIUM CHLORIDE 20 MEQ TABCR PO SCH (21:04)
[2018-11-30] MEDS: SIMVASTATIN 40 MG TAB PO SCH (21:04)
[2018-11-30] MEDS: BUMETANIDE 1 MG TAB PO SCH (21:05)
[2018-11-30] MEDS: INSULIN GLARGINE SOLOSTAR 100 UNITS/ML 3 ML PEN SQ SCH (21:05)
[2018-12-01] MEDS: ZOLPIDEM TARTRATE 5 MG TAB PO PRN (00:08)
[2018-12-01] MEDS: PIPERACILLIN/TAZOBACTAM 4.5 GM in DEXTROSE 5% 100 ML IV SCH (03:46)
[2018-12-01 05:04] LABS: Basophils # (auto) 0.02 K/uL (0-0.2); Basophils % (auto) 0.3 %; Eosinophils # (auto) 0.04 K/uL (0-0.5); Eosinophils % (auto) 0.7 %; Hematocrit (blood only) 39.1 % (42-52); Hemoglobin 12.5 g/dL (14.0-18.0); Immature Granulocytes % (auto) 1.6 %; Lymphocytes # (auto) 0.73 K/uL (1.2-3.4); Lymphocytes % (auto) 11.9 %; Mean Corpuscular Volume 91.4 fL (80-100); Mean Platelet Volume 10.6 fL (7.4-10.4); Monocytes # (auto) 1.05 K/uL (0.11-0.59); Monocytes % (auto) 17.2 %; Neutrophils # (auto) 4.17 K/uL (1.4-6.5); Neutrophils % (auto) 68.3 %; Nucleated RBC # (auto) 0.04 K/uL (0-0); Nucleated RBC % (auto) 0.6 %; Platelet Count 118 K/uL (130-400); RDW Standard Deviation 63.1 fL (36.4-46.3); Red Blood Count 4.28 M/uL (4.7-6.1); White Blood Count 6.11 K/uL (4.8-10.8)
[2018-12-01 05:26] LABS: BUN Creatinine Ratio 20.7 (10-20); Calcium 8.1 mg/dl (8.5-10.1); Creatinine Clr Calc Pharmacy 26.6 ml/min; Est GFR (African American) 26.1; Est GFR (Non-African American) 22.5; Potassium 5.1 mmol/L (3.5-5.1)
[2018-12-01] MEDS: LEVOTHYROXINE SODIUM 75 MCG TABLET PO SCH (05:50)
[2018-12-01] MEDS: ACETAMINOPHEN 325 MG TAB PO PRN ×2 (06:37→20:36)
[2018-12-01] MEDS: INSULIN ASPART 100 UNITS/ML 3 ML PEN SC SCH ×4 (09:02→20:27)
[2018-12-01] MEDS: ALLOPURINOL 100 MG TAB PO SCH ×2 (09:08→20:22)
[2018-12-01] MEDS: FLUOCINONIDE 0.05% CR 15 GM TUBE EXT SCH (09:08)
[2018-12-01] MEDS: APIXABAN 2.5 MG TAB PO SCH ×2 (09:09→20:24)
[2018-12-01] MEDS: DOCUSATE SODIUM 100 MG CAP PO SCH ×2 (09:09→20:23)
[2018-12-01] MEDS: CARVEDILOL 6.25 MG TAB PO SCH ×2 (09:09→16:12)
[2018-12-01] MEDS: CALCITRIOL 0.25 MCG CAPSULE PO SCH (09:09)
[2018-12-01] MEDS: NEPHROCAPS PO SCH (09:09)
[2018-12-01] MEDS: POLYETHYLENE (MIRALAX) 17 GM PACK PO SCH (09:09)
[2018-12-01] MEDS: ASPIRIN 81 MG ECTAB PO SCH (09:09)
[2018-12-01] MEDS: BUMETANIDE 1 MG TAB PO SCH ×2 (09:09→20:23)
--- NOTE | 2018-12-01 10:07 | Nephrology Progress Note ---
Date of Service December 01, 2018 Assessment & Plan (1) ESRD (end stage renal disease) on dialysis: ESRD on HD TTS. Admitted with lower extremity cellulitis, culture grow Klebsiella blood culture negative. -- had dialysis yesterday, currently volume status improved, Electrolyte acceptable. Blood pressure better. --continue on Bumex 2 milligram twice a day --discontinue oral potassium supplement -- on Zosyn -- continue on boost 1 can p.o. t.i.d --waiting for discharge to [facility] rehab Will follow (2) Angina pectoris, unspecified: (3) Cellulitis: (4) S/P admission to ICU (intensive care unit): -- 45 minutes critical care time provided. Plan of care discussed w/ ICU team and rn staffing Ramírez Grimes was seen and examined in his with his at bedside. Pain in bilateral lower extremity improved, lower extremity cellulitis and ulceration is improving as well with less erythema, denies any significant shortness of breath or chest pain, no fever or chills. Blood pressure remained low but stable , asymptomatic. Physical Exam 2 Vital Signs (Past 24 Hours): Last Vital Signs Temp 36.4 C L 12/01/18 04:00 Pulse 72 12/01/18 04:00 Resp 20 12/01/18 04:00 BP 106/62 12/01/18 04:00 Pulse Ox 93 12/01/18 04:00 Constitutional: WD/WN, vitals as above Respiratory: Auscultation: + diminished lung sounds Cardiovascular: Heart Sounds: normal S1 and normal S2 Extremities: + edema Skin: + ulcer and + erythema Neurologic: moves all extremities and awake Psychiatric: Orientation: alert and oriented x 3 _ (1) Cellulitis Laterality: right Site of cellulitis: extremity Site of cellulitis of extremity: lower extremity Site of cellulitis of trunk: Qualified Code(s): L03.115 - Cellulitis of right lower limb
[2018-12-01] MEDS: POTASSIUM CHLORIDE 20 MEQ TABCR PO SCH (10:29)
[2018-12-01] MEDS: AMIODARONE 200 MG TAB PO SCH (12:06)
--- NOTE | 2018-12-01 12:12 | Pharmacy Report ---
Pharmacy Glycemic Short Note 2 - Date of Service December 01, 2018 - Glycemic Short BSG Results (Last 24 hours): 11/30/18 11/30/18 11/30/18 15:59 16:01 16:23 Glucose POC Glucose 56 L* 61 L* 74 11/30/18 12/01/18 12/01/18 20:55 04:31 07:39 Glucose 147 H POC Glucose 162 H 153 H 12/01/18 11:26 Glucose POC Glucose 170 H OUTPATIENT ANTIDIABETIC REGIMEN: * Basaglar 35 units SQ HS * Novolog SQ ACHS per scale 1 unit w/ each meal + correctional insulin ( 1 unit per 25mg/dL above 150) * A1c = 6.8% 11/06/18 CURRENT ORDERS: * Lantus 40 units Q HS * Novolog SQ ACHS * Goal range: 120 -160 mg/dL * Correction factor: 20mg/dL/unit * Carb ratio: 1 unit per 7gm CHO ASSESSMENT: 12/01 * Patient experienced hypoglycemia yesterday - likely secondary to hemodialysis treatment in the setting of excess basal insulin * Basal insulin dose was titrated down yesterday, fasting BSG 153 this AM - will continue with reduced dose for now * Will lessen the prandial insulin dose further this AM until it is established that he is no longer at risk for hypoglycemia 2/5 * BSGs have ranged 74-135 over the last 24 hrs * Fasting less than 100 today with 40 units of Lantus on board, will begin to titrate dosage downwards * Post-prandial BSGs at goal over last 2 days using current CF and CR - may need to lessen doses if BSGs below goal w/ excess basal on board 2/4 * Type 2 diabetic admitted with sepsis from R leg cellulitis * Glycemic control has been acceptable over the last 24 hrs, all BSGs but one < 180 * Fasting BSG at goal this AM w/ 40 units of Lantus on board - slightly higher than out-pt dose. Will continue the same for now * Post-prandial BSGs well controlled w/ current Novolog CF/Cr - no change PLAN FOR INPATIENT GLYCEMIC CONTROL: * Basal insulin (no change) * Lantus 32 units SQ Q HS * Bolus insulin (dose reduction) * NovoLog per scale ACHS or Q6hrs while NPO * Goal Range: Low 120 mg/dL - High 160 mg/dL * Correction Factor: 25 mg/dL/unit * Nutritional / Prandial insulin per carb ratio of 1 unit per 9 grams CHO consumed PLAN FOR DISCHARGE: * Although A1c close to goal, clinical nurse educator did meet w/ patient and his . It appears that continuing the home Basaglar dose of 35 units daily would be appropriate. His Novolog dose with meals may need adjusted upwards based upon SMBG values post-prandially. I would estimate he would need at a minimum 4 units Novolog with each meal with this dose being titrated upwards by outpt provider. Cashier Clerk also provided patient with a written scale for correctional insulin.
--- NOTE | 2018-12-01 15:52 | Hospitalist Progress Note ---
Date of Service December 01, 2018 Assessment & Plan (1) Septic shock: shock resolved, BP maintained off of pressors wound culture grew Klebsiella but both sets of blood cultures negative taper antibiotics to Rocephin today WBC normal for days, no fever cellulitis improving very slowly, wound care following transfer to medical floor today (2) Cellulitis: skin continues to improve, minimal redness still with venous stasis ulcer, wound care following change Zosyn to Rocephin, treat with antibiotics for 14 days total, perhaps longer based on slow clinical response wound care following for venous ulcers (3) Elevated troponin: troponin peaked at 0.2 no new wall motion abnormalities likely demand ischemia in setting of hypotension, septic shock (4) CAD (coronary artery disease), [place] coronary artery: - Cont aspirin 81 mg, amiodarone 200 mg, Coreg 6.25 mg PO BID no current chest pain (5) HLD (hyperlipidemia): - Cont simvastatin 40 mg daily (6) Ischemic cardiomyopathy: continue Bumex volume overloaded currently utilizing HD for fluid removal continue Coreg (7) Pulmonary hypertension: - Stable (8) Mitral regurgitation: - Stable (9) GERD (gastroesophageal reflux disease): (10) Aortic stenosis: (11) Chronic combined systolic and diastolic CHF (congestive heart failure): - EF is 20-25% on echo today (12) Diabetes: - ISS with accuchecks achs - Continue Lantus 35 U HS. monitor for hypoglycemia, no recent episodes (13) Atrial fibrillation: - Continue on eliquis 2.5 mg BID continue Coreg and Amiodarone (14) Hypothyroidism: - Cont levothyroxine 75 mcg daily (15) CKD (chronic kidney disease): - Stage IV, on HD T--Sat: plan for HD tomorrow - Nephro consulted continue on Bumex (16) DVT prophylaxis: -teds, scds, continue eliquis Plan: palliative consult on 11/29, POLST completed, DNR now patient and family would like patient to recover and go to rehab he will likely be here all week to recover will get PT/OT evaluations when ready transfer to medical floor today Subjective patient still fatigued, resting in bed was OOB in chair earlier in the day, ate breakfast RN able to titrate oxygen to 4L reviewed labs, BMP and CBC stable currently discussed with pharmacy, change abx to Rocephin for the cellulitis updated at the bedside will transfer to medical floor, start therapy explained that he will be here the rest of the week will see if rehab possible based on therapy notes Review of Systems All systems reviewed & are unremarkable except as noted in HPI & below Constitutional: + fatigue and + weakness Respiratory: + dyspnea on exertion; no cough Cardiovascular: + dyspnea on exertion and + edema; no chest pain Physical Exam 2 Vital Signs (Past 24 Hours): Last Vital Signs Temp 36.5 C 12/01/18 14:44 Pulse 73 12/01/18 14:44 Resp 20 12/01/18 14:44 BP 95/61 L 12/01/18 14:44 Pulse Ox 96 12/01/18 14:44 Constitutional: WD/WN, vitals as above Eyes: PERRL, conjunctivae normal, anicteric sclerae ENMT: external ear and nose normal, oropharynx normal Neck: trachea midline, no thyromegaly Respiratory: no cough Auscultation: + diminished lung sounds Cardiovascular: Rate/Rhythm: regular rate and regular rhythm Vessels: normal peripheral pulses Extremities: + pedal edema (pitting to the knees bilaterally) Gastrointestinal (Abdomen): normal bowel sounds, soft, nontender, no hepatosplenomegaly Musculoskeletal: no cyanosis or clubbing, extremities motor strength 5/5 Skin: + rash (bilateral venous stasis ulcers, erythema, warm and tender) Neurologic: patellar DTR's 2+ bilat, sensation intact and PERRL, EOMI, accommodation nl, no face palsy, no dysarthria Psychiatric: A+Ox3, euthymic affect Lymphatic: no cervical or axillary lymphadenopathy Results & Data Laboratory Results Laboratory Results - last 24 hr 11/30/18 11/30/18 11/30/18 15:59 16:01 16:23 WBC RBC Hgb Hct MCV MCH MCHC RDW Std Deviation RDW Coeff of Ebenezer Plt Count MPV Immature Gran % (Auto) Neut % (Auto) Lymph % (Auto) [place] % (Auto) Eos % (Auto) Baso % (Auto) Immature Gran # (Auto) Neut # (Auto) Lymph # (Auto) [place] # (Auto) Eos # (Auto) Baso # (Auto) Absolute Nucleated RBC Nucleated RBC % (auto) Sodium Potassium Chloride Carbon Dioxide Anion Gap BUN Creatinine Est Cr Clr Drug Dosing Est GFR ( Amer) Est GFR (Non-Af Amer) BUN/Creatinine Ratio Glucose POC Glucose 56 L* 61 L* 74 Calcium 11/30/18 12/01/18 12/01/18 20:55 04:31 04:31 WBC 6.11 RBC 4.28 L Hgb 12.5 L Hct 39.1 L MCV 91.4 MCH 29.2 MCHC 32.0 RDW Std Deviation 63.1 H RDW Coeff of Ebenezer 19.0 H Plt Count 118 L MPV 10.6 H Immature Gran % (Auto) 1.6 Neut % (Auto) 68.3 Lymph % (Auto) 11.9 [place] % (Auto) 17.2 Eos % (Auto) 0.7 Baso % (Auto) 0.3 Immature Gran # (Auto) 0.10 H Neut # (Auto) 4.17 Lymph # (Auto) 0.73 L [place] # (Auto) 1.05 H Eos # (Auto) 0.04 Baso # (Auto) 0.02 Absolute Nucleated RBC 0.04 H Nucleated RBC % (auto) 0.6 Sodium 131 L Potassium 5.1 D Chloride 98 Carbon Dioxide 24 Anion Gap 9.0 BUN 55 H Creatinine 2.64 H Est Cr Clr Drug Dosing 26.6 Est GFR ( Amer) 26.1 Est GFR (Non-Af Amer) 22.5 BUN/Creatinine Ratio 20.7 H Glucose 147 H POC Glucose 162 H Calcium 8.1 L 12/01/18 12/01/18 07:39 11:26 WBC RBC Hgb Hct MCV MCH MCHC RDW Std Deviation RDW Coeff of Ebenezer Plt Count MPV Immature Gran % (Auto) Neut % (Auto) Lymph % (Auto) [place] % (Auto) Eos % (Auto) Baso % (Auto) Immature Gran # (Auto) Neut # (Auto) Lymph # (Auto) [place] # (Auto) Eos # (Auto) Baso # (Auto) Absolute Nucleated RBC Nucleated RBC % (auto) Sodium Potassium Chloride Carbon Dioxide Anion Gap BUN Creatinine Est Cr Clr Drug Dosing Est GFR ( Amer) Est GFR (Non-Af Amer) BUN/Creatinine Ratio Glucose POC Glucose 153 H 170 H Calcium Medications Administered Current Inpatient Medications Acetaminophen (Tylenol) 650 mg PO Q4H PRN PRN Reason: Moderate Pain Stop: 12/27/18 21:30 Last Admin: 12/01/18 06:37 Dose: 650 mg Hydrocodone Bitart/Acetaminophen ([place] 5/325) 1 tab PO Q4H PRN PRN Reason: Pain Stop: 12/13/18 20:59 Last Admin: 11/30/18 13:13 Dose: 1 tab Albuterol (Combivent Respimat) 1 puffs INH Q6 PRN PRN Reason: Shortness Of Breath Stop: 12/27/18 21:30 Last Admin: 11/29/18 21:16 Dose: 1 puffs Albuterol (Duoneb) 3 ml NEB Q4R PRN PRN Reason: Shortness Of Breath Or Wheezin Stop: 12/27/18 21:30 Allopurinol (Zyloprim) 100 mg PO BID [facility] Stop: 12/27/18 21:30 Last Admin: 12/01/18 09:08 Dose: 100 mg Amiodarone HCl (Cordarone) 200 mg PO QDL [facility] Stop: 12/28/18 11:29 Last Admin: 12/01/18 12:06 Dose: 200 mg Apixaban (Eliquis) 2.5 mg PO BID [facility] Stop: 12/27/18 21:30 Last Admin: 12/01/18 09:09 Dose: 2.5 mg Aspirin (Ecotrin Ectab) 81 mg PO DAILY [facility] Stop: 12/28/18 10:59 Last Admin: 12/01/18 09:09 Dose: 81 mg Bumetanide (Bumex) 2 mg PO BID [facility] Stop: 12/27/18 21:30 Last Admin: 12/01/18 09:09 Dose: 2 mg Calcitriol (Racaltrol) 0.5 mcg PO QAM [facility] Stop: 12/28/18 08:59 Last Admin: 12/01/18 09:09 Dose: 0.5 mcg Carvedilol (Coreg) 6.25 mg PO BIDM [facility] Stop: 12/28/18 07:59 Last Admin: 12/01/18 09:09 Dose: 6.25 mg Dextrose (Dextrose 50%) 25 - 50 ml IV UD PRN; Protocol PRN Reason: Hypoglycemia Protocol Stop: 12/27/18 21:30 Docusate Sodium (Colace) 100 mg PO BID [facility] Stop: 12/27/18 21:30 Last Admin: 12/01/18 09:09 Dose: 100 mg Fluocinonide (Lidex 0.5%) 1 appln EXT DAILY [facility] Stop: 12/29/18 08:59 Last Admin: 12/01/18 09:08 Dose: 1 appln Glucagon (Glucagen) 1 mg SQ UD PRN; Protocol PRN Reason: Hypoglycemia Protocol Stop: 12/27/18 21:30 Glucose (Glucose 40%) 15 - 30 gm PO UD PRN; Protocol PRN Reason: Hypoglycemia Protocol Stop: 12/27/18 21:30 Glucose (Dex4 Glucose) 4 - 8 tabs PO UD PRN; Protocol PRN Reason: Hypoglycemia Protocol Stop: 12/27/18 21:30 Ceftriaxone Sodium 2,000 mg/ (Dextrose) 50 mls @ 100 mls/hr IV Q24H [facility] Stop: 12/11/18 17:34 Insulin Aspart (Novolog Flexpen) 0 units SC ACHS [facility]; Protocol Stop: 12/27/18 23:29 Last Admin: 12/01/18 12:06 Dose: 8 units Insulin Glargine (Lantus Solostar Pen) 32 units SQ HS [facility]; Protocol Stop: 12/30/18 20:59 Last Admin: 11/30/18 21:05 Dose: 32 units Levothyroxine Sodium (Synthroid) 75 mcg PO DAILYBB [facility] Stop: 12/28/18 06:29 Last Admin: 12/01/18 05:50 Dose: 75 mcg Magnesium Hydroxide (Milk Of Magnesia) 30 ml PO Q6H PRN PRN Reason: Indigestion Stop: 12/28/18 09:44 Last Admin: 11/30/18 07:50 Dose: 30 ml Metolazone (Zaroxolyn) 2.5 mg PO Mo@0900 [facility] Stop: 12/29/18 08:59 Miscellaneous (Carbohydrates For Hypoglycemia) 15 - 30 gm PO UD PRN PRN Reason: Hypoglycemia Treatment Stop: 12/27/18 21:30 Last Admin: 11/30/18 16:07 Dose: 15 gm Miscellaneous Information (Consult Glycemic Management Pharmacy) 1 ea N/A UD PRN PRN Reason: Consult Stop: 12/27/18 21:56 Nitroglycerin (Nitrostat) 0.4 mg SL DAILY PRN PRN Reason: Chest Pain Stop: 12/27/18 21:30 Ondansetron HCl (Zofran) 4 mg IV Q4H PRN PRN Reason: Nausea And Vomiting Stop: 12/27/18 21:30 Polyethylene Glycol (Miralax Powder Packet) 17 gm PO DAILY [facility] Stop: 12/28/18 08:59 Last Admin: 12/01/18 09:09 Dose: 17 gm Simvastatin (Zocor) 40 mg PO HS [facility] Stop: 12/27/18 21:30 Last Admin: 11/30/18 21:04 Dose: 40 mg Vitamin B Complex/Folic Acid (Nephrocaps) 1 cap PO QAM [facility] Stop: 12/28/18 08:59 Last Admin: 12/01/18 09:09 Dose: 1 cap Zolpidem Tartrate (Ambien) 1.25 mg PO HSZ PRN PRN Reason: Insomnia Stop: 12/27/18 21:30 Last Admin: 12/01/18 00:08 Dose: 1.25 mg _ (1) Mitral regurgitation Cardiac valve disease etiology: etiology unspecified Qualified Code(s): I34.0 - Nonrheumatic mitral (valve) insufficiency (2) Atrial fibrillation Atrial fibrillation type: permanent Qualified Code(s): I48.2 - Chronic atrial fibrillation (3) CKD (chronic kidney disease) Chronic kidney disease stage: stage 4 (severe) Qualified Code(s): N18.4 - Chronic kidney disease, stage 4 (severe)
[2018-12-01] MEDS: cefTRIAXone SODIUM 2,000 MG in DEXTROSE 5% 50 ML IV SCH (16:10)
[2018-12-01] MEDS: SIMVASTATIN 40 MG TAB PO SCH (20:22)
[2018-12-01] MEDS: INSULIN GLARGINE SOLOSTAR 100 UNITS/ML 3 ML PEN SQ SCH (20:26)
[2018-12-02] MEDS: MAGNESIUM HYDROXIDE SUSP 30 ML UDC PO PRN ×2 (03:40→21:35)
[2018-12-02] MEDS: LEVOTHYROXINE SODIUM 75 MCG TABLET PO SCH (05:57)
[2018-12-02 07:36] LABS: Basophils # (auto) 0.01 K/uL (0-0.2); Basophils % (auto) 0.1 %; Eosinophils # (auto) 0.14 K/uL (0-0.5); Eosinophils % (auto) 1.9 %; Hematocrit (blood only) 40.7 % (42-52); Hemoglobin 13.1 g/dL (14.0-18.0); Immature Granulocytes # (auto) 0.23 K/uL (0.00-0.02); Immature Granulocytes % (auto) 3.1 %; Lymphocytes # (auto) 0.63 K/uL (1.2-3.4); Lymphocytes % (auto) 8.5 %; Mean Corpuscular Hgb Conc 32.2 g/dL (32-36); Mean Corpuscular Volume 90.8 fL (80-100); Mean Platelet Volume 10.4 fL (7.4-10.4); Monocytes # (auto) 0.98 K/uL (0.11-0.59); Monocytes % (auto) 13.2 %; Neutrophils # (auto) 5.43 K/uL (1.4-6.5); Neutrophils % (auto) 73.2 %; Nucleated RBC # (auto) 0.09 K/uL (0-0); Nucleated RBC % (auto) 1.2 %; Platelet Count 138 K/uL (130-400); RDW Coefficient of Variation 19.1 % (11.5-14.5); RDW Standard Deviation 63.1 fL (36.4-46.3); Red Blood Count 4.48 M/uL (4.7-6.1); White Blood Count 7.42 K/uL (4.8-10.8)
[2018-12-02] MEDS: ACETAMINOPHEN 325 MG TAB PO PRN ×2 (07:45→22:45)
[2018-12-02] MEDS: ALLOPURINOL 100 MG TAB PO SCH ×2 (07:49→21:32)
[2018-12-02] MEDS: ASPIRIN 81 MG ECTAB PO SCH (07:49)
[2018-12-02] MEDS: BUMETANIDE 1 MG TAB PO SCH ×2 (07:49→21:30)
[2018-12-02] MEDS: DOCUSATE SODIUM 100 MG CAP PO SCH ×2 (07:49→22:36)
[2018-12-02] MEDS: NEPHROCAPS PO SCH (07:49)
[2018-12-02] MEDS: APIXABAN 2.5 MG TAB PO SCH ×2 (07:50→21:32)
[2018-12-02] MEDS: POLYETHYLENE (MIRALAX) 17 GM PACK PO SCH (07:51)
[2018-12-02] MEDS: CALCITRIOL 0.25 MCG CAPSULE PO SCH (07:51)
[2018-12-02] MEDS: FLUOCINONIDE 0.05% CR 15 GM TUBE EXT SCH (07:57)
[2018-12-02] MEDS: CARVEDILOL 6.25 MG TAB PO SCH ×2 (07:58→17:08)
[2018-12-02 08:07] LABS: BUN Creatinine Ratio 22.9 (10-20); Calcium 8.4 mg/dl (8.5-10.1); Creatinine Clr Calc Pharmacy 20.7 ml/min; Est GFR (African American) 19.3; Est GFR (Non-African American) 16.6; Potassium 4.5 mmol/L (3.5-5.1)
[2018-12-02] MEDS: INSULIN ASPART 100 UNITS/ML 3 ML PEN SC SCH ×4 (09:24→21:29)
[2018-12-02] MEDS: HYDROCODONE/ACETAMOPHEN 5/325MG TAB PO PRN ×2 (09:40→21:35)
[2018-12-02] MEDS ORDERED: SODIUM CHLORIDE 0.9% 1000ML 1,000 ML IV PRN (10:01)
--- NOTE | 2018-12-02 10:08 | Nephrology Progress Note ---
Date of Service December 02, 2018 Assessment & Plan (1) ESRD (end stage renal disease) on dialysis: ESRD on HD TTS. Admitted with lower extremity cellulitis, culture grow Klebsiella blood culture negative. -- plan for dialysis this morning as his regular schedule --continue on Bumex 2 milligram twice a day -- on Zosyn -- continue on boost 1 can p.o. t.i.d --please schedule for wound care center follow-up on discharge --waiting for discharge to [facility] rehab, okay to be discharged after dialysis today Will follow (2) Angina pectoris, unspecified: (3) Cellulitis: (4) S/P admission to ICU (intensive care unit): -- 45 minutes critical care time provided. Plan of care discussed w/ ICU team and bellstaff Ramírez Grimes was seen and examined in his with his at bedside. Lower extremity cellulitis and ulceration is improving as well with less erythema, denies any significant shortness of breath or chest pain, no fever or chills. Blood pressure remained low but stable, asymptomatic. Appetite improved. Physical Exam 2 Vital Signs (Past 24 Hours): Last Vital Signs Temp 35.8 C L 12/02/18 07:09 Pulse 71 12/02/18 07:09 Resp 20 12/02/18 07:09 BP 99/67 L 12/02/18 07:09 Pulse Ox 95 12/02/18 07:09 Constitutional: WD/WN, vitals as above Respiratory: Auscultation: + diminished lung sounds Cardiovascular: Heart Sounds: normal S1 and normal S2 Extremities: + edema Skin: + ulcer and + erythema Neurologic: moves all extremities and awake Psychiatric: Orientation: alert and oriented x 3 _ (1) Cellulitis Laterality: right Site of cellulitis: extremity Site of cellulitis of extremity: lower extremity Site of cellulitis of trunk: Qualified Code(s): L03.115 - Cellulitis of right lower limb
--- NOTE | 2018-12-02 16:09 | Hospitalist Progress Note ---
Date of Service December 02, 2018 Assessment & Plan (1) Septic shock: shock resolved for several days, BP maintained off of pressors wound culture grew Klebsiella but both sets of blood cultures negative taper antibiotics to Rocephin and continue WBC normal for days, no fever cellulitis improving very slowly, wound care following silver dressings being applied will go to [facility] once medically stable, anticipate Thursday (2) Cellulitis: skin continues to improve, minimal redness really it just looks like venous stasis changes at this point still with venous stasis ulcer, wound care following Rocephin, treat with antibiotics for 14 days total, perhaps longer based on slow clinical response wound care following for venous ulcers (3) Elevated troponin: troponin peaked at 0.2 no new wall motion abnormalities likely demand ischemia in setting of hypotension, septic shock (4) CAD (coronary artery disease), lower [place] coronary artery: - Cont aspirin 81 mg, amiodarone 200 mg, Coreg 6.25 mg PO BID no current chest pain (5) HLD (hyperlipidemia): - Cont simvastatin 40 mg daily (6) Ischemic cardiomyopathy: continue Bumex volume overloaded currently utilizing HD for fluid removal continue Coreg (7) Pulmonary hypertension: - Stable (8) Mitral regurgitation: - Stable (9) GERD (gastroesophageal reflux disease): (10) Aortic stenosis: (11) Chronic combined systolic and diastolic CHF (congestive heart failure): - EF is 20-25% on echo today (12) Diabetes: - ISS with accuchecks, achs - Continue Lantus 35 U HS. monitor for hypoglycemia, no recent episodes (13) Atrial fibrillation: - Continue on eliquis 2.5 mg BID continue Coreg and Amiodarone (14) Hypothyroidism: - Cont levothyroxine 75 mcg daily (15) CKD (chronic kidney disease): - Stage IV, on HD T-Th-Sat: HD on 12/02, tolerated well - Nephro consulted continue on Bumex (16) DVT prophylaxis: -teds, scds, continue eliquis Plan: palliative consult on 11/29, POLST completed, DNR now patient and family would like patient to recover and go to rehab he will likely be here all week to recover will get PT/OT evaluations when ready plan for rehab on Thursday Subjective patient tolerated HD was really tired afterwards eating okay d/w family, still planning on rehab on discharge Review of Systems All systems reviewed & are unremarkable except as noted in HPI & below Constitutional: + fatigue and + weakness Respiratory: + dyspnea on exertion; no cough Cardiovascular: + dyspnea on exertion and + edema; no chest pain Integumentary: + rash (bilateral legs) Physical Exam 2 Vital Signs (Past 24 Hours): Last Vital Signs Temp 36.5 C 12/02/18 12:05 Pulse 80 12/02/18 15:30 Resp 20 12/02/18 07:09 BP 103/70 12/02/18 15:30 Pulse Ox 95 12/02/18 07:09 Constitutional: WD/WN, vitals as above + acute distress (mild) Eyes: PERRL, conjunctivae normal, anicteric sclerae ENMT: external ear and nose normal, oropharynx normal Neck: trachea midline, no thyromegaly Respiratory: + respiratory distress (mild) and + labored breathing; no cough Auscultation: + diminished lung sounds and + rales (bases) Cardiovascular: Rate/Rhythm: regular rate and regular rhythm Vessels: normal peripheral pulses Extremities: + pedal edema (pitting to the knees bilaterally) Gastrointestinal (Abdomen): normal bowel sounds, soft, nontender, no hepatosplenomegaly Musculoskeletal: no cyanosis or clubbing, extremities motor strength 5/5 Skin: + rash (bilateral venous stasis ulcers, erythema, warm and tender) Neurologic: patellar DTR's 2+ bilat, sensation intact and PERRL, EOMI, accommodation nl, no face palsy, no dysarthria Psychiatric: A+Ox3, euthymic affect Lymphatic: no cervical or axillary lymphadenopathy Results & Data Laboratory Results Laboratory Results - last 24 hr 12/01/18 12/01/18 12/02/18 16:36 19:54 06:51 WBC 7.42 RBC 4.48 L Hgb 13.1 L Hct 40.7 L MCV 90.8 MCH 29.2 MCHC 32.2 RDW Std Deviation 63.1 H RDW Coeff of Ebenezer 19.1 H Plt Count 138 MPV 10.4 Immature Gran % (Auto) 3.1 Neut % (Auto) 73.2 Lymph % (Auto) 8.5 [place] % (Auto) 13.2 Eos % (Auto) 1.9 Baso % (Auto) 0.1 Immature Gran # (Auto) 0.23 H Neut # (Auto) 5.43 Lymph # (Auto) 0.63 L [place] # (Auto) 0.98 H Eos # (Auto) 0.14 Baso # (Auto) 0.01 Absolute Nucleated RBC 0.09 H Nucleated RBC % (auto) 1.2 Sodium Potassium Chloride Carbon Dioxide Anion Gap BUN Creatinine Est Cr Clr Drug Dosing Est GFR ( Amer) Est GFR (Non-Af Amer) BUN/Creatinine Ratio Glucose POC Glucose 179 H 174 H Calcium 12/02/18 12/02/18 12/02/18 06:51 07:46 11:29 WBC RBC Hgb Hct MCV MCH MCHC RDW Std Deviation RDW Coeff of Ebene[place] Plt Count MPV Immature Gran % (Auto) Neut % (Auto) Lymph % (Auto) [place] % (Auto) Eos % (Auto) Baso % (Auto) Immature Gran # (Auto) Neut # (Auto) Lymph # (Auto) [place] # (Auto) Eos # (Auto) Baso # (Auto) Absolute Nucleated RBC Nucleated RBC % (auto) Sodium 130 L Potassium 4.5 Chloride 96 L Carbon Dioxide 25 Anion Gap 10.0 BUN 78 H Creatinine 3.39 H D Est Cr Clr Drug Dosing 20.7 Est GFR ( Amer) 19.3 Est GFR (Non-Af Amer) 16.6 BUN/Creatinine Ratio 22.9 H Glucose 134 H POC Glucose 131 H 185 H Calcium 8.4 L Medications Administered Current Inpatient Medications Acetaminophen (Tylenol) 650 mg PO Q4H PRN PRN Reason: Moderate Pain Stop: 12/27/18 21:30 Last Admin: 12/02/18 07:45 Dose: 650 mg Hydrocodone Bitart/Acetaminophen ([place] 5/325) 1 tab PO Q4H PRN PRN Reason: Pain Stop: 12/13/18 20:59 Last Admin: 12/02/18 09:40 Dose: 1 tab Albuterol (Combivent Respimat) 1 puffs INH Q6 PRN PRN Reason: Shortness Of Breath Stop: 12/27/18 21:30 Last Admin: 11/29/18 21:16 Dose: 1 puffs Albuterol (Duoneb) 3 ml NEB Q4R PRN PRN Reason: Shortness Of Breath Or Wheezin Stop: 12/27/18 21:30 Allopurinol (Zyloprim) 100 mg PO BID JANEL Stop: 12/27/18 21:30 Last Admin: 12/02/18 07:49 Dose: 100 mg Amiodarone HCl (Cordarone) 200 mg PO QDL [facility] Stop: 12/28/18 11:29 Last Admin: 12/01/18 12:06 Dose: 200 mg Apixaban (Eliquis) 2.5 mg PO BID [facility] Stop: 12/27/18 21:30 Last Admin: 12/02/18 07:50 Dose: 2.5 mg Aspirin (Ecotrin Ectab) 81 mg PO DAILY [facility] Stop: 12/28/18 10:59 Last Admin: 12/02/18 07:49 Dose: 81 mg Bumetanide (Bumex) 2 mg PO BID [facility] Stop: 12/27/18 21:30 Last Admin: 12/02/18 07:49 Dose: 2 mg Calcitriol (Racaltrol) 0.5 mcg PO QAM [facility] Stop: 12/28/18 08:59 Last Admin: 12/02/18 07:51 Dose: 0.5 mcg Carvedilol (Coreg) 6.25 mg PO BIDM [facility] Stop: 12/28/18 07:59 Last Admin: 12/02/18 07:58 Dose: Not Given Dextrose (Dextrose 50%) 25 - 50 ml IV UD PRN; Protocol PRN Reason: Hypoglycemia Protocol Stop: 12/27/18 21:30 Docusate Sodium (Colace) 100 mg PO BID [facility] Stop: 12/27/18 21:30 Last Admin: 12/02/18 07:49 Dose: 100 mg Fluocinonide (Lidex 0.5%) 1 appln EXT DAILY JANEL Stop: 12/29/18 08:59 Last Admin: 12/02/18 07:57 Dose: Not Given Glucagon (Glucagen) 1 mg SQ UD PRN; Protocol PRN Reason: Hypoglycemia Protocol Stop: 12/27/18 21:30 Glucose (Glucose 40%) 15 - 30 gm PO UD PRN; Protocol PRN Reason: Hypoglycemia Protocol Stop: 12/27/18 21:30 Glucose (Dex4 Glucose) 4 - 8 tabs PO UD PRN; Protocol PRN Reason: Hypoglycemia Protocol Stop: 12/27/18 21:30 Ceftriaxone Sodium 2,000 mg/ (Dextrose) 50 mls @ 100 mls/hr IV Q24H JANEL Stop: 12/11/18 17:34 Last Infusion: 12/01/18 16:43 Dose: Infused Insulin Aspart (Novolog Flexpen) 0 units SC [facility]; Protocol Stop: 12/27/18 23:29 Last Admin: 12/02/18 11:47 Dose: 6 units Insulin Glargine (Lantus Solostar Pen) 32 units SQ HS [facility]; Protocol Stop: 12/30/18 20:59 Last Admin: 12/01/18 20:26 Dose: 32 units [facility]othy[facility]ine [facility]) [facility] Stop: 12/28/18 06:29 Last Admin: 12/02/18 05:57 Dose: 75 mcg Magnesium Hydroxide (Milk Of Magnesia) 30 ml PO Q6H PRN PRN Reason: Indigestion Stop: 12/28/18 09:44 Last Admin: 12/02/18 03:40 Dose: 30 ml Metolazone (Zaroxolyn) 2.5 mg PO Mo@0900 [facility] Stop: 12/29/18 08:59 Miscellaneous (Carbohydrates For Hypoglycemia) 15 - 30 gm PO UD PRN PRN Reason: Hypoglycemia Treatment Stop: 12/27/18 21:30 Last Admin: 11/30/18 16:07 Dose: 15 gm Miscellaneous Information (Consult Glycemic Management Pharmacy) 1 ea N/A UD PRN PRN Reason: Consult Stop: 12/27/18 21:56 Nitroglycerin (Nitrostat) 0.4 mg SL DAILY PRN PRN Reason: Chest Pain Stop: 12/27/18 21:30 Ondansetron HCl (Zofran) 4 mg IV Q4H PRN PRN Reason: Nausea And Vomiting Stop: 12/27/18 21:30 Polyethylene Glycol (Miralax Powder Packet) 17 gm PO DAILY [facility] Stop: 12/28/18 08:59 Last Admin: 12/02/18 07:51 Dose: Not Given Simvastatin (Zocor) 40 mg PO [facility] Stop: 12/27/18 21:30 Last Admin: 12/01/18 20:22 Dose: 40 mg Vitamin B Complex/Folic Acid (Nephrocaps) 1 cap PO QAM [facility] Stop: 12/28/18 08:59 Last Admin: 12/02/18 07:49 Dose: 1 cap Zolpidem Tartrate (Ambien) 1.25 mg PO HSZ PRN PRN Reason: Insomnia Stop: 12/27/18 21:30 Last Admin: 12/01/18 00:08 Dose: 1.25 mg _ (1) Atrial fibrillation Atrial fibrillation type: permanent Qualified Code(s): I48.2 - Chronic atrial fibrillation (2) Mitral regurgitation Cardiac valve disease etiology: etiology unspecified Qualified Code(s): I34.0 - Nonrheumatic mitral (valve) insufficiency (3) CKD (chronic kidney disease) Chronic kidney disease stage: stage 4 (severe) Qualified Code(s): N18.4 - Chronic kidney disease, stage 4 (severe)
[2018-12-02] MEDS: AMIODARONE 200 MG TAB PO SCH (16:30)
[2018-12-02] MEDS: cefTRIAXone SODIUM 2,000 MG in DEXTROSE 5% 50 ML IV SCH (16:31)
[2018-12-02] MEDS: INSULIN GLARGINE SOLOSTAR 100 UNITS/ML 3 ML PEN SQ SCH (21:30)
[2018-12-02] MEDS: SIMVASTATIN 40 MG TAB PO SCH (21:32)
[2018-12-02] MEDS: ZOLPIDEM TARTRATE 5 MG TAB PO PRN (23:56)
[2018-12-03] MEDS: HYDROCODONE/ACETAMOPHEN 5/325MG TAB PO PRN (01:22)
[2018-12-03] MEDS ORDERED: SODIUM CHLORIDE 0.9% 1000ML 1,000 ML IV PRN (07:57)
[2018-12-03 09:11] LABS: Hematocrit (blood only) 39.5 % (42-52); Hemoglobin 12.4 g/dL (14.0-18.0); Mean Corpuscular Hgb Conc 31.4 g/dL (32-36); Mean Corpuscular Volume 91.2 fL (80-100); Mean Platelet Volume 9.9 fL (7.4-10.4); Nucleated RBC # (auto) 0.13 K/uL (0-0); Nucleated RBC % (auto) 2.1 %; Platelet Count 110 K/uL (130-400); RDW Coefficient of Variation 19.1 % (11.5-14.5); RDW Standard Deviation 63.3 fL (36.4-46.3); Red Blood Count 4.33 M/uL (4.7-6.1); White Blood Count 6.18 K/uL (4.8-10.8)
[2018-12-03] MEDS: NEPHROCAPS PO SCH (09:29)
[2018-12-03 09:30] LABS: BUN Creatinine Ratio 17.7 (10-20); Calcium 8.3 mg/dl (8.5-10.1); Creatinine Clr Calc Pharmacy 22.9 ml/min; Est GFR (African American) 21.6; Est GFR (Non-African American) 18.6; Potassium 4.2 mmol/L (3.5-5.1)
[2018-12-03] MEDS: LEVOTHYROXINE SODIUM 75 MCG TABLET PO SCH (09:30)
[2018-12-03] MEDS: APIXABAN 2.5 MG TAB PO SCH ×2 (09:30→21:42)
[2018-12-03] MEDS: ALLOPURINOL 100 MG TAB PO SCH ×2 (09:30→21:42)
[2018-12-03] MEDS: BUMETANIDE 1 MG TAB PO SCH ×2 (09:30→21:59)
[2018-12-03] MEDS: CALCITRIOL 0.25 MCG CAPSULE PO SCH (09:31)
[2018-12-03] MEDS: CARVEDILOL 6.25 MG TAB PO SCH ×2 (09:31→17:34)
[2018-12-03] MEDS: ASPIRIN 81 MG ECTAB PO SCH (09:31)
[2018-12-03] MEDS: INSULIN ASPART 100 UNITS/ML 3 ML PEN SC SCH ×4 (09:33→21:34)
[2018-12-03] MEDS: DOCUSATE SODIUM 100 MG CAP PO SCH ×2 (09:33→21:44)
[2018-12-03] MEDS: FLUOCINONIDE 0.05% CR 15 GM TUBE EXT SCH (09:34)
[2018-12-03] MEDS: POLYETHYLENE (MIRALAX) 17 GM PACK PO SCH (09:35)
--- NOTE | 2018-12-03 11:16 | Nephrology Progress Note ---
Date of Service December 03, 2018 Assessment & Plan (1) ESRD (end stage renal disease) on dialysis: ESRD on HD TTS. Admitted with lower extremity cellulitis, culture grow Klebsiella blood culture negative. Had dialysis yesterday, currently blood pressure, electrolyte and volume status acceptable. --continue on Bumex 2 milligram twice a day -- on Zosyn -- continue on boost 1 can p.o. t.i.d --please schedule for wound care center follow-up on discharge --waiting for discharge to [facility] rehab Will follow (2) Angina pectoris, unspecified: (3) Cellulitis: (4) S/P admission to ICU (intensive care unit): -- 45 minutes critical care time provided. Plan of care discussed w/ ICU team and senior staff specialized employment Ramírez Grimes was seen and examined in his with his family at bedside. Lower extremity cellulitis and ulceration is improving with less erythema, denies any significant shortness of breath or chest pain, no fever or chills. Blood pressure remained low but stable, asymptomatic. Continues to have bilateral leg pain. Appetite improved. Physical Exam 2 Vital Signs (Past 24 Hours): Last Vital Signs Temp 36.9 C 12/03/18 07:00 Pulse 71 12/03/18 07:00 Resp 30 H 12/03/18 07:00 BP 88/58 L 12/03/18 07:00 Pulse Ox 90 12/03/18 07:00 Constitutional: WD/WN, vitals as above Respiratory: Auscultation: + diminished lung sounds Cardiovascular: Heart Sounds: normal S1 and normal S2 Extremities: + edema Skin: + ulcer and + erythema Neurologic: moves all extremities and awake Psychiatric: Orientation: alert and oriented x 3 _ (1) Cellulitis Laterality: right Site of cellulitis: extremity Site of cellulitis of extremity: lower extremity Site of cellulitis of trunk: Qualified Code(s): L03.115 - Cellulitis of right lower limb
[2018-12-03] MEDS: cefTRIAXone SODIUM 2,000 MG in DEXTROSE 5% 50 ML IV SCH (12:45)
[2018-12-03] MEDS: AMIODARONE 200 MG TAB PO SCH (13:07)
[2018-12-03] MEDS: IPRATROPIUM BROMIDE/ALBUTEROL respimat INH INH PRN (14:11)
--- NOTE | 2018-12-03 15:40 | Pharmacy Report ---
Pharmacy Glycemic Short Note 2 - Date of Service December 03, 2018 - Glycemic Short BSG Results (Last 24 hours): 12/02/18 12/02/18 12/03/18 16:42 20:13 07:46 Glucose POC Glucose 119 H 165 H 71 12/03/18 12/03/18 08:49 11:50 Glucose 89 POC Glucose 101 H OUTPATIENT ANTIDIABETIC REGIMEN: * Basaglar 35 units SQ HS * Novolog SQ ACHS per scale 1 unit w/ each meal + correctional insulin ( 1 unit per 25mg/dL above 150) * A1c = 6.8% 11/06/18 ASSESSMENT: 12/03 * Patient's BSGs have ranged from 131-185 yesterday. However the 185 was a post- prandial check. Therefore BSGs have been pretty good for this patient. * He received a total of 50 units of insulin yesterday - 32 units (more than half) was from basal insulin. * Fasting BSG this am = 71, much lower than goal range and lunch BSG = 101. Patient has been trending lower today. * Carb ratio was therefore loosened at lunch today and Lantus HS dose was adjusted to a scale. * Patient's appetite has been improving and he has been eating more carbs- will monitor if BSGs trend up. 12/01 * Patient experienced hypoglycemia yesterday - likely secondary to hemodialysis treatment in the setting of excess basal insulin * Basal insulin dose was titrated down yesterday, fasting BSG 153 this AM - will continue with reduced dose for now * Will lessen the prandial insulin dose further this AM until it is established that he is no longer at risk for hypoglycemia 2 * BSGs have ranged 74-135 over the last 24 hrs * Fasting less than 100 today with 40 units of Lantus on board, will begin to titrate dosage downwards * Post-prandial BSGs at goal over last 2 days using current CF and CR - may need to lessen doses if BSGs below goal w/ excess basal on board 2/4 * Type 2 diabetic admitted with sepsis from R leg cellulitis * Glycemic control has been acceptable over the last 24 hrs, all BSGs but one < 180 * Fasting BSG at goal this AM w/ 40 units of Lantus on board - slightly higher than out-pt dose. Will continue the same for now * Post-prandial BSGs well controlled w/ current Novolog CF/Cr - no change PLAN FOR INPATIENT GLYCEMIC CONTROL: * Basal insulin- decreased and based on scale * if BSG less than 120 give 20 units; BSG 120-180 give 25 units; BSG greater than 180 give 30 units. * Bolus insulin - loosened Carb ratio * NovoLog per scale ACHS or Q6hrs while NPO * Goal Range: Low 120 mg/dL - High 160 mg/dL * Correction Factor: 25 mg/dL/unit * Nutritional / Prandial insulin per carb ratio of 1 unit per 12 grams CHO consumed PLAN FOR DISCHARGE: * Although A1c close to goal, hospice educator did meet w/ patient and his . It appears that continuing the home Basaglar dose of 35 units daily would be appropriate. His Novolog dose with meals may need adjusted upwards based upon SMBG values post-prandially. I would estimate he would need at a minimum 4 units Novolog with each meal with this dose being titrated upwards by outpt provider. Supervisor Filtration also provided patient with a written scale for correctional insulin.
--- NOTE | 2018-12-03 16:05 | Hospitalist Progress Note ---
Date of Service December 03, 2018 Assessment & Plan (1) Septic shock: shock resolved for several days, BP maintained off of pressors wound culture grew Klebsiella but both sets of blood cultures negative taper antibiotics to Rocephin and continue WBC normal for days, no fever cellulitis improving very slowly, wound care following silver dressings being applied blister on right leg opened up, wound care involved should involve wound clinic on discharge will go to [facility] once medically stable, anticipate Thursday (2) Cellulitis: skin continues to improve, minimal redness really it just looks like venous stasis changes at this point still with venous stasis ulcer, wound care following Rocephin, treat with antibiotics for 14 days total, perhaps longer based on slow clinical response left arm with US guided peripheral wound care following for venous ulcers (3) Elevated troponin: troponin peaked at 0.2 no new wall motion abnormalities likely demand ischemia in setting of hypotension, septic shock (4) CAD (coronary artery disease), [place] coronary artery: - Cont aspirin 81 mg, amiodarone 200 mg, Coreg 6.25 mg PO BID no current chest pain (5) HLD (hyperlipidemia): - Cont simvastatin 40 mg daily (6) Ischemic cardiomyopathy: continue Bumex slight volume overload but overall improved utilizing HD for fluid removal continue Coreg (7) Pulmonary hypertension: - Stable (8) Mitral regurgitation: - Stable (9) GERD (gastroesophageal reflux disease): (10) Aortic stenosis: (11) Chronic combined systolic and diastolic CHF (congestive heart failure): - EF is 20-25% on echo slightly overloaded on exam overload due to renal dysfunction (12) Diabetes: - ISS with accuchecks, achs - Continue Lantus 35 U HS. monitor for hypoglycemia, no recent episodes (13) Atrial fibrillation: - Continue on eliquis 2.5 mg BID continue Coreg and Amiodarone (14) Hypothyroidism: - Cont levothyroxine 75 mcg daily (15) CKD (chronic kidney disease): - Stage IV, on HD T--Sat: HD on 12/02, tolerated well - Nephro consulted continue on Bumex (16) DVT prophylaxis: -teds, scds, continue eliquis Plan: palliative consult on 11/29, POLST completed, DNR now patient and family would like patient to recover and go to rehab participating in PT/OT plan for rehab on [place] Subjective patient says he is doing "so so" breathing is stable, eating well walked in the [place] with therapy, went further than yesterday blister on right leg opened up today, addressed by wound care silver dressing applied communicated with the patient and his via managing partner discussed the issue with the arm band and preventing blood draws he was wearing it due to pacemaker one year ago, was not for purpose of saving veins for fistula was upset about a trainee attempting twice on left arm to place US guided peripheral the patient had a great deal of bruising patient does not complain reviewed labs, stable Review of Systems All systems reviewed & are unremarkable except as noted in HPI & below Constitutional: + fatigue and + weakness; no fever and no sweats Respiratory: + dyspnea and + dyspnea on exertion; no cough Cardiovascular: + dyspnea, + dyspnea on exertion and + edema Integumentary: + unusual bruising (left arm after attempts for IV access) Physical Exam 2 Vital Signs (Past 24 Hours): Last Vital Signs Temp 36 C L 12/03/18 15:02 Pulse 69 12/03/18 15:02 Resp 22 12/03/18 15:02 BP 108/78 12/03/18 15:02 Pulse Ox 95 12/03/18 15:02 Constitutional: WD/WN, vitals as above Eyes: PERRL, conjunctivae normal, anicteric sclerae ENMT: external ear and nose normal, oropharynx normal Neck: trachea midline, no thyromegaly Respiratory: normal respiratory effort, lungs clear to auscultation Auscultation: + diminished lung sounds Cardiovascular: Rate/Rhythm: regular rate and regular rhythm Vessels: normal peripheral pulses Extremities: + pedal edema (improved overall, +1 in lower legs) Gastrointestinal (Abdomen): normal bowel sounds, soft, nontender, no hepatosplenomegaly Musculoskeletal: no cyanosis or clubbing, extremities motor strength 5/5 Skin: + rash (bilateral venous stasis ulcers, erythema, warm and tender) and + ecchymosis (left forearm) Neurologic: patellar DTR's 2+ bilat, sensation intact and PERRL, EOMI, accommodation nl, no face palsy, no dysarthria Psychiatric: A+Ox3, euthymic affect Lymphatic: no cervical or axillary lymphadenopathy Results & Data Laboratory Results Laboratory Results - last 24 hr 12/02/18 12/02/18 12/03/18 16:42 20:13 07:46 WBC RBC Hgb Hct MCV MCH MCHC RDW Std Deviation RDW Coeff of Ebenezer Plt Count MPV Absolute Nucleated RBC Nucleated RBC % (auto) Sodium Potassium Chloride Carbon Dioxide Anion Gap BUN Creatinine Est Cr Clr Drug Dosing Est GFR ( Amer) Est GFR (Non-Af Amer) BUN/Creatinine Ratio Glucose POC Glucose 119 H 165 H 71 Calcium 12/03/18 12/03/18 12/03/18 08:49 08:49 11:50 WBC 6.18 RBC 4.33 L Hgb 12.4 L Hct 39.5 L MCV 91.2 MCH 28.6 MCHC 31.4 L RDW Std Deviation 63.3 H RDW Coeff of Ebenezer 19.1 H Plt Count 110 L MPV 9.9 Absolute Nucleated RBC 0.13 H Nucleated RBC % (auto) 2.1 Sodium 134 L Potassium 4.2 Chloride 98 Carbon Dioxide 28 Anion Gap 8.0 BUN 55 H Creatinine 3.09 H D Est Cr Clr Drug Dosing 22.9 Est GFR ( Amer) 21.6 Est GFR (Non-Af Amer) 18.6 BUN/Creatinine Ratio 17.7 Glucose 89 POC Glucose 101 H Calcium 8.3 L Medications Administered Current Inpatient Medications Acetaminophen (Tylenol) 650 mg PO Q4H PRN PRN Reason: Moderate Pain Stop: 12/27/18 21:30 Last Admin: 12/02/18 22:45 Dose: 650 mg Hydrocodone Bitart/Acetaminophen ([place] 5/325) 1 tab PO Q4H PRN PRN Reason: Pain Stop: 12/13/18 20:59 Last Admin: 12/03/18 01:22 Dose: 1 tab Albuterol (Combivent Respimat) 1 puffs INH Q6 PRN PRN Reason: Shortness Of Breath Stop: 12/27/18 21:30 Last Admin: 12/03/18 14:11 Dose: 1 puffs Albuterol (Duoneb) 3 ml NEB Q4R PRN PRN Reason: Shortness Of Breath Or Wheezin Stop: 12/27/18 21:30 Allopurinol (Zyloprim) 100 mg PO BID JANEL Stop: 12/27/18 21:30 Last Admin: 12/03/18 09:30 Dose: 100 mg Amiodarone HCl (Cordarone) 200 mg PO QDL [facility] Stop: 12/28/18 11:29 Last Admin: 12/03/18 13:07 Dose: 200 mg Apixaban (Eliquis) 2.5 mg PO BID [facility] Stop: 12/27/18 21:30 Last Admin: 12/03/18 09:30 Dose: 2.5 mg Aspirin (Ecotrin Ectab) 81 mg PO DAILY [facility] Stop: 12/28/18 10:59 Last Admin: 12/03/18 09:31 Dose: 81 mg Bumetanide (Bumex) 2 mg PO BID [facility] Stop: 12/27/18 21:30 Last Admin: 12/03/18 09:30 Dose: 2 mg Calcitriol (Racaltrol) 0.5 mcg PO QAM [facility] Stop: 12/28/18 08:59 Last Admin: 12/03/18 09:31 Dose: 0.5 mcg Carvedilol (Coreg) 6.25 mg PO BIDM [facility] Stop: 12/28/18 07:59 Last Admin: 12/03/18 09:31 Dose: Not Given Dextrose (Dextrose 50%) 25 - 50 ml IV UD PRN; Protocol PRN Reason: Hypoglycemia Protocol Stop: 12/27/18 21:30 Docusate Sodium (Colace) 100 mg PO BID [facility] Stop: 12/27/18 21:30 Last Admin: 12/03/18 09:33 Dose: 100 mg Fluocinonide (Lidex 0.5%) 1 appln EXT DAILY [facility] Stop: 12/29/18 08:59 Last Admin: 12/03/18 09:34 Dose: Not Given Glucagon (Glucagen) 1 mg SQ UD PRN; Protocol PRN Reason: Hypoglycemia Protocol Stop: 12/27/18 21:30 Glucose (Glucose 40%) 15 - 30 gm PO UD PRN; Protocol PRN Reason: Hypoglycemia Protocol Stop: 12/27/18 21:30 Glucose (Dex4 Glucose) 4 - 8 tabs PO UD PRN; Protocol PRN Reason: Hypoglycemia Protocol Stop: 12/27/18 21:30 Ceftriaxone Sodium 2,000 mg/ (Dextrose) 50 mls @ 100 mls/hr IV Q24H [facility] Stop: 12/11/18 17:34 Last Infusion: 12/03/18 13:26 Dose: Infused Insulin Aspart (Novolog Flexpen) 0 units SC [facility]; Protocol Stop: 12/27/18 23:29 Last Admin: 12/03/18 12:44 Dose: 5 units Insulin Glargine (Lantus Solostar Pen) 0 units SQ [facility]; Protocol Stop: 01/02/19 20:59 Levothyroxine Sodium (Synthroid) 75 mcg PO DAILYBB [facility] Stop: 12/28/18 06:29 Last Admin: 12/03/18 09:30 Dose: 75 mcg Magnesium Hydroxide (Milk Of Magnesia) 30 ml PO Q6H PRN PRN Reason: Indigestion Stop: 12/28/18 09:44 Last Admin: 12/02/18 21:35 Dose: 30 ml Metolazone (Zaroxolyn) 2.5 mg PO Mo@0900 [facility] Stop: 12/29/18 08:59 Miscellaneous (Carbohydrates For Hypoglycemia) 15 - 30 gm PO UD PRN PRN Reason: Hypoglycemia Treatment Stop: 12/27/18 21:30 Last Admin: 11/30/18 16:07 Dose: 15 gm Miscellaneous Information (Consult Glycemic Management Pharmacy) 1 ea N/A UD PRN PRN Reason: Consult Stop: 12/27/18 21:56 Nitroglycerin (Nitrostat) 0.4 mg SL DAILY PRN PRN Reason: Chest Pain Stop: 12/27/18 21:30 Ondansetron HCl (Zofran) 4 mg IV Q4H PRN PRN Reason: Nausea And Vomiting Stop: 12/27/18 21:30 Polyethylene Glycol (Miralax Powder Packet) 17 gm PO DAILY [facility] Stop: 12/28/18 08:59 Last Admin: 12/03/18 09:35 Dose: Not Given Simvastatin (Zocor) 40 mg PO HS [facility] Stop: 12/27/18 21:30 Last Admin: 12/02/18 21:32 Dose: 40 mg Vitamin B Complex/Folic Acid (Nephrocaps) 1 cap PO QAM [facility] Stop: 12/28/18 08:59 Last Admin: 12/03/18 09:29 Dose: 1 cap Zolpidem Tartrate (Ambien) 1.25 mg PO HSZ PRN PRN Reason: Insomnia Stop: 12/27/18 21:30 Last Admin: 12/02/18 23:56 Dose: 1.25 mg _ (1) Atrial fibrillation Atrial fibrillation type: permanent Qualified Code(s): I48.2 - Chronic atrial fibrillation (2) Mitral regurgitation Cardiac valve disease etiology: etiology unspecified Qualified Code(s): I34.0 - Nonrheumatic mitral (valve) insufficiency (3) CKD (chronic kidney disease) Chronic kidney disease stage: stage 4 (severe) Qualified Code(s): N18.4 - Chronic kidney disease, stage 4 (severe)
[2018-12-03] MEDS: MAGNESIUM HYDROXIDE SUSP 30 ML UDC PO PRN (18:47)
[2018-12-03] MEDS: ACETAMINOPHEN 325 MG TAB PO PRN (18:49)
[2018-12-03] MEDS: INSULIN GLARGINE SOLOSTAR 100 UNITS/ML 3 ML PEN SQ SCH (21:40)
[2018-12-03] MEDS: SIMVASTATIN 40 MG TAB PO SCH (21:42)
[2018-12-04] MEDS: ACETAMINOPHEN 325 MG TAB PO PRN ×3 (00:07→21:08)
[2018-12-04] MEDS: ZOLPIDEM TARTRATE 5 MG TAB PO PRN (00:08)
[2018-12-04] MEDS: HYDROCODONE/ACETAMOPHEN 5/325MG TAB PO PRN (02:16)
[2018-12-04] MEDS: LEVOTHYROXINE SODIUM 75 MCG TABLET PO SCH (06:13)
[2018-12-04] MEDS ORDERED: INSULIN GLARGINE SOLOSTAR 100 UNITS/ML 3 ML PEN SQ ONE (08:00)
[2018-12-04] MEDS: INSULIN ASPART 100 UNITS/ML 3 ML PEN SC SCH ×4 (08:29→21:05)
[2018-12-04 10:03] LABS: Hemoglobin 12.6 g/dL (14.0-18.0); Mean Corpuscular Hgb Conc 31.5 g/dL (32-36); Mean Corpuscular Volume 92.6 fL (80-100); Mean Platelet Volume 9.8 fL (7.4-10.4); Nucleated RBC # (auto) 0.04 K/uL (0-0); Nucleated RBC % (auto) 0.6 %; Platelet Count 123 K/uL (130-400); RDW Coefficient of Variation 19.5 % (11.5-14.5); RDW Standard Deviation 64.9 fL (36.4-46.3); Red Blood Count 4.32 M/uL (4.7-6.1); White Blood Count 6.76 K/uL (4.8-10.8)
[2018-12-04 10:40] LABS: BUN Creatinine Ratio 21.3 (10-20); Calcium 7.5 mg/dl (8.5-10.1); Creatinine Clr Calc Pharmacy 25.1 ml/min; Est GFR (African American) 24.1; Est GFR (Non-African American) 20.8; Potassium 3.5 mmol/L (3.5-5.1)
--- NOTE | 2018-12-04 10:48 | Nephrology Progress Note ---
Date of Service December 04, 2018 Assessment & Plan (1) ESRD (end stage renal disease) on dialysis: ESRD on HD TTS. Admitted with lower extremity cellulitis, culture grow Klebsiella blood culture negative. Had dialysis yesterday, currently blood pressure, electrolyte and volume status acceptable. Unclear etiology for Rt lower back and flank pain, could be musculoskeletal pain or positional. No swelling, erythema on exam. CT A/P in October was unremarkable. UA with no pyuria, hematuria. --no other w/u for back pain for now, continue analgesic as needed --keep leg elevated, continue antibiotic --continue on Bumex 2 milligram twice a day -- continue on boost 1 can p.o. t.i.d --please schedule for wound care center follow-up on discharge --waiting for discharge to [facility] rehab --left arm nephrology precaution, no further IV line or blood draw once current peripheral li9ne is removed. Will follow (2) Angina pectoris, unspecified: (3) Cellulitis: (4) S/P admission to ICU (intensive care unit): -- 45 minutes critical care time provided. Plan of care discussed w/ ICU team and staff trainer Ramírez Grimes was seen and examined in his with his family at bedside. Lower extremity cellulitis and ulceration has been improving but rt leg erythema seems to have [id number] again. C/O rt lower back and flank pain sinec last night responds to tylenol. No fever, chills, leukocytosis. Denies any significant shortness of breath or chest pain, no fever or chills. Blood pressure remained low but stable , asymptomatic. Physical Exam 2 Vital Signs (Past 24 Hours): Last Vital Signs Temp 36.4 C L 12/04/18 07:10 Pulse 70 12/04/18 07:10 Resp 18 12/04/18 07:10 BP 84/56 L 12/04/18 07:10 Pulse Ox 93 12/04/18 07:10 Constitutional: WD/WN, vitals as above Respiratory: Auscultation: + diminished lung sounds Cardiovascular: Heart Sounds: normal S1 and normal S2 Extremities: + edema Skin: + ulcer and + erythema Neurologic: moves all extremities and awake Psychiatric: Orientation: alert and oriented x 3 _ (1) Cellulitis Laterality: right Site of cellulitis: extremity Site of cellulitis of extremity: lower extremity Site of cellulitis of trunk: Qualified Code(s): L03.115 - Cellulitis of right lower limb
[2018-12-04] MEDS ORDERED: SODIUM CHLORIDE 0.9% 1000ML 1,000 ML IV PRN (10:50)
--- NOTE | 2018-12-04 11:20 | Pharmacy Report ---
Pharmacy Glycemic Short Note 2 - Date of Service December 04, 2018 - Glycemic Short BSG Results (Last 24 hours): 12/03/18 12/03/18 12/03/18 11:50 16:40 20:29 Glucose POC Glucose 101 H 103 H 106 H 12/04/18 12/04/18 07:33 09:48 Glucose 137 H POC Glucose 162 H OUTPATIENT ANTIDIABETIC REGIMEN: * Basaglar 35 units SQ HS * Novolog SQ ACHS per scale 1 unit w/ each meal + correctional insulin ( 1 unit per 25mg/dL above 150) * A1c = 6.8% 11/06/18 ASSESSMENT: 12/04 * Patient received 15 units of insulin yesterday. Lantus dose was decreased significantly based on fasting BSG of 71 mg/dL, however Lantus was held last evening (RN documented not given per discussion with MD). * Fasting BSG today is above goal, 162 mg/dL. I have ordered 15 units for this morning to make up for skipped dose. * No changes will be made to Novolog today. Carb ratio was loosened yesterday. 12/03 * Patient's BSGs have ranged from 131-185 yesterday. However the 185 was a post- prandial check. Therefore BSGs have been pretty good for this patient. * He received a total of 50 units of insulin yesterday - 32 units (more than half) was from basal insulin. * Fasting BSG this am = 71, much lower than goal range and lunch BSG = 101. Patient has been trending lower today. * Carb ratio was therefore loosened at lunch today and Lantus HS dose was adjusted to a scale. * Patient's appetite has been improving and he has been eating more carbs- will monitor if BSGs trend up. PLAN FOR INPATIENT GLYCEMIC CONTROL: * Basal insulin * Lantus per scale SQ qHS * BSG less than 120 give 20 units * BSG 120-180 give 23 units * BSG greater than 180 give 26 units * Bolus insulin * NovoLog per scale ACHS or Q6hrs while NPO * Goal Range: Low 120 mg/dL - High 160 mg/dL * Correction Factor: 25 mg/dL/unit * Nutritional / Prandial insulin per carb ratio of 1 unit per 12 grams CHO consumed PLAN FOR DISCHARGE: * Although A1c close to goal, retirement plan counselor did meet w/ patient and his . It appears that continuing the home Basaglar dose of 35 units daily would be appropriate. His Novolog dose with meals may need adjusted upwards based upon SMBG values post-prandially. I would estimate he would need at a minimum 4 units Novolog with each meal with this dose being titrated upwards by outpt provider. Limited Radiology Technician also provided patient with a written scale for correctional insulin.
[2018-12-04] MEDS: CARVEDILOL 6.25 MG TAB PO SCH ×2 (11:52→16:43)
[2018-12-04] MEDS: DOCUSATE SODIUM 100 MG CAP PO SCH ×2 (11:53→21:08)
[2018-12-04] MEDS: APIXABAN 2.5 MG TAB PO SCH ×2 (11:53→21:01)
[2018-12-04] MEDS: ALLOPURINOL 100 MG TAB PO SCH ×2 (11:53→21:01)
[2018-12-04] MEDS: BUMETANIDE 1 MG TAB PO SCH ×2 (11:53→21:01)
[2018-12-04] MEDS: CALCIUM CARBONATE 500 MG CHEWABLE TAB PO SCH ×2 (11:54→16:38)
--- NOTE | 2018-12-04 15:52 | Hospitalist Progress Note ---
Date of Service December 04, 2018 Assessment & Plan (1) Chest pain: episode today, troponin negative and EKG normal relieved with nitro has long standing history of chronic angina due to ischemic heart disease will continue to monitor (2) Septic shock: shock resolved for several days, BP maintained off of pressors wound culture grew Klebsiella but both sets of blood cultures negative taper antibiotics to Rocephin and continue WBC normal for days, no fever cellulitis improving very slowly, wound care following silver dressings being applied blister on right leg opened up, wound care involved should involve wound clinic on discharge will go to [facility] once medically stable, anticipate Thursday (3) Cellulitis: skin continues to improve, minimal redness really it just looks like venous stasis changes at this point still with venous stasis ulcer, wound care following Rocephin, treat with antibiotics for 14 days total, perhaps longer based on slow clinical response left arm with US guided peripheral wound care following for venous ulcers (4) Elevated troponin: earlier in admission troponin peaked at 0.2 no new wall motion abnormalities likely demand ischemia in setting of hypotension, septic shock (5) CAD (coronary artery disease), [place] coronary artery: - Cont aspirin 81 mg, amiodarone 200 mg, Coreg 6.25 mg PO BID no current chest pain (6) HLD (hyperlipidemia): - Cont simvastatin 40 mg daily (7) Ischemic cardiomyopathy: continue Bumex slight volume overload but overall improved utilizing HD for fluid removal continue Coreg (8) Pulmonary hypertension: - Stable (9) Mitral regurgitation: - Stable (10) GERD (gastroesophageal reflux disease): (11) Aortic stenosis: (12) Chronic combined systolic and diastolic CHF (congestive heart failure): - EF is 20-25% on echo slightly overloaded on exam overload due to renal dysfunction (13) Diabetes: - ISS with accuchecks, achs - Continue Lantus 35 U HS. monitor for hypoglycemia, no recent episodes (14) Atrial fibrillation: - Continue on eliquis 2.5 mg BID continue Coreg and Amiodarone (15) Hypothyroidism: - Cont levothyroxine 75 mcg daily (16) CKD (chronic kidney disease): - Stage IV, on HD T-Th-Sat: HD on 12/02, tolerated well - Nephro consulted continue on Bumex HD today, was tired and had chills afterwards but he tolerated the entire session (17) DVT prophylaxis: -teds, scds, continue eliquis Plan: palliative consult on 11/29, POLST completed, DNR now patient and family would like patient to recover and go to rehab participating in PT/OT plan for rehab on Thursday Subjective patient fatigued after HD today, felt cold when I was with him his concerned about IV team seeing him every day, she is worried they will try to place another IV assured her that they are doing their job to check on status of the US guided peripheral he has for the Rocephin later in the evening the RN called to say he was having chest pain, it was relieved with nitro troponin negative, EKG negative for ischemia per , he is eating well today moving bowels Review of Systems All systems reviewed & are unremarkable except as noted in HPI & below Constitutional: + chills, + fatigue and + weakness Physical Exam 2 Vital Signs (Past 24 Hours): Last Vital Signs Temp 36.4 C L 12/04/18 15:31 Pulse 64 12/04/18 15:31 Resp 18 12/04/18 15:31 BP 99/54 L 12/04/18 15:31 Pulse Ox 96 12/04/18 15:31 Constitutional: WD/WN, vitals as above Eyes: PERRL, conjunctivae normal, anicteric sclerae ENMT: external ear and nose normal, oropharynx normal Neck: trachea midline, no thyromegaly Respiratory: normal respiratory effort, lungs clear to auscultation no cough Auscultation: + diminished lung sounds Cardiovascular: Rate/Rhythm: regular rate and regular rhythm Vessels: normal peripheral pulses Extremities: + pedal edema (improved overall, +1 in lower legs) Gastrointestinal (Abdomen): normal bowel sounds, soft, nontender, no hepatosplenomegaly Musculoskeletal: no cyanosis or clubbing, extremities motor strength 5/5 Skin: + rash (bilateral venous stasis ulcers, erythema, warm and tender) and + ecchymosis (left forearm) Neurologic: patellar DTR's 2+ bilat, sensation intact and PERRL, EOMI, accommodation nl, no face palsy, no dysarthria Psychiatric: A+Ox3, euthymic affect Lymphatic: no cervical or axillary lymphadenopathy Results & Data Laboratory Results Laboratory Results - last 24 hr 12/03/18 12/03/18 12/04/18 16:40 20:29 07:33 WBC RBC Hgb Hct MCV MCH MCHC RDW Std Deviation RDW Coeff of Ebenezer Plt Count MPV Absolute Nucleated RBC Nucleated RBC % (auto) Sodium Potassium Chloride Carbon Dioxide Anion Gap BUN Creatinine Est Cr Clr Drug Dosing Est GFR ( Amer) Est GFR (Non-Af Amer) BUN/Creatinine Ratio Glucose POC Glucose 103 H 106 H 162 H Calcium 12/04/18 12/04/18 12/04/18 09:48 09:48 14:26 WBC 6.76 RBC 4.32 L Hgb 12.6 L Hct 40.0 L MCV 92.6 MCH 29.2 MCHC 31.5 L RDW Std Deviation 64.9 H RDW Coeff of Ebenezer 19.5 H Plt Count 123 L MPV 9.8 Absolute Nucleated RBC 0.04 H Nucleated RBC % (auto) 0.6 Sodium 137 Potassium 3.5 D Chloride 101 Carbon Dioxide 30 Anion Gap 6.0 BUN 60 H Creatinine 2.82 H Est Cr Clr Drug Dosing 25.1 Est GFR ( Amer) 24.1 Est GFR (Non-Af Amer) 20.8 BUN/Creatinine Ratio 21.3 H Glucose 137 H POC Glucose 101 H Calcium 7.5 L Medications Administered Current Inpatient Medications Acetaminophen (Tylenol) 650 mg PO Q4H PRN PRN Reason: Moderate Pain Stop: 12/27/18 21:30 Last Admin: 12/04/18 00:07 Dose: 650 mg Hydrocodone Bitart/Acetaminophen ([place] 5/325) 1 tab PO Q4H PRN PRN Reason: Pain Stop: 12/13/18 20:59 Last Admin: 12/03/18 01:22 Dose: 1 tab Albuterol (Combivent Respimat) 1 puffs INH Q6 PRN PRN Reason: Shortness Of Breath Stop: 12/27/18 21:30 Last Admin: 12/03/18 14:11 Dose: 1 puffs Albuterol (Duoneb) 3 ml NEB Q4R PRN PRN Reason: Shortness Of Breath Or Wheezin Stop: 12/27/18 21:30 Allopurinol (Zyloprim) 100 mg PO BID [facility] Stop: 12/27/18 21:30 Last Admin: 12/04/18 11:53 Dose: Not Given Amiodarone HCl (Cordarone) 200 mg PO QDL [facility] Stop: 12/28/18 11:29 Last Admin: 12/03/18 13:07 Dose: 200 mg Apixaban (Eliquis) 2.5 mg PO BID [facility] Stop: 12/27/18 21:30 Last Admin: 12/04/18 11:53 Dose: Not Given Aspirin (Ecotrin Ectab) 81 mg PO DAILY [facility] Stop: 12/28/18 10:59 Last Admin: 12/03/18 09:31 Dose: 81 mg Bumetanide (Bumex) 2 mg PO BID [facility] Stop: 12/27/18 21:30 Last Admin: 12/04/18 11:53 Dose: Not Given Calcitriol (Racaltrol) 0.5 mcg PO QAM [facility] Stop: 12/28/18 08:59 Last Admin: 12/03/18 09:31 Dose: 0.5 mcg Calcium Carbonate (Tums) 500 mg PO TIDM [facility] Stop: 01/03/19 11:59 Last Admin: 12/04/18 11:54 Dose: Not Given Carvedilol (Coreg) 6.25 mg PO BIDM [facility] Stop: 12/28/18 07:59 Last Admin: 12/04/18 11:52 Dose: Not Given Dextrose (Dextrose 50%) 25 - 50 ml IV UD PRN; Protocol PRN Reason: Hypoglycemia Protocol Stop: 12/27/18 21:30 Docusate Sodium (Colace) 100 mg PO BID [facility] Stop: 12/27/18 21:30 Last Admin: 12/04/18 11:53 Dose: Not Given Fluocinonide (Lidex 0.5%) 1 appln EXT DAILY [facility] Stop: 12/29/18 08:59 Last Admin: 12/03/18 09:34 Dose: Not Given Glucagon (Glucagen) 1 mg SQ UD PRN; Protocol PRN Reason: Hypoglycemia Protocol Stop: 12/27/18 21:30 Glucose (Glucose 40%) 15 - 30 gm PO UD PRN; Protocol PRN Reason: Hypoglycemia Protocol Stop: 12/27/18 21:30 Glucose (Dex4 Glucose) 4 - 8 tabs PO UD PRN; Protocol PRN Reason: Hypoglycemia Protocol Stop: 12/27/18 21:30 Ceftriaxone Sodium 2,000 mg/ (Dextrose) 50 mls @ 100 mls/hr IV Q24H [facility] Stop: 12/11/18 17:34 Last Infusion: 12/03/18 13:26 Dose: Infused Sodium Chloride (Nss 1000ml) 1,000 mls @ 0 mls/hr IV .Q0M PRN PRN Reason: For Hemodialysis Use ONLY Stop: 12/04/18 16:49 Insulin Aspart (Novolog Flexpen) 0 units SC [facility]; Protocol Stop: 12/27/18 23:29 Last Admin: 12/04/18 13:20 Dose: Not Given Insulin Glargine (Lantus Solostar Pen) 0 units SQ [facility]; Protocol Stop: 01/02/19 20:59 Last Admin: 12/03/18 21:40 Dose: Not Given [facility] Stop: 12/28/18 06:29 Last Admin: 12/04/18 06:13 Dose: 75 mcg Magnesium Hydroxide (Milk Of Magnesia) 30 ml PO Q6H PRN PRN Reason: Indigestion Stop: 12/28/18 09:44 Last Admin: 12/03/18 18:47 Dose: 30 ml Metolazone (Zaroxolyn) 2.5 mg PO Mo@0900 [facility] Stop: 12/29/18 08:59 Miscellaneous (Carbohydrates For Hypoglycemia) 15 - 30 gm PO UD PRN PRN Reason: Hypoglycemia Treatment Stop: 12/27/18 21:30 Last Admin: 11/30/18 16:07 Dose: 15 gm Miscellaneous Information (Consult Glycemic Management Pharmacy) 1 ea N/A UD PRN PRN Reason: Consult Stop: 12/27/18 21:56 Nitroglycerin (Nitrostat) 0.4 mg SL DAILY PRN PRN Reason: Chest Pain Stop: 12/27/18 21:30 Ondansetron HCl (Zofran) 4 mg IV Q4H PRN PRN Reason: Nausea And Vomiting Stop: 12/27/18 21:30 Polyethylene Glycol (Miralax Powder Packet) 17 gm PO DAILY [facility] Stop: 12/28/18 08:59 Last Admin: 12/03/18 09:35 Dose: Not Given Simvastatin (Zocor) 40 mg PO [facility] Stop: 12/27/18 21:30 Last Admin: 12/03/18 21:42 Dose: 40 mg Vitamin B Complex/Folic Acid (Nephrocaps) 1 cap PO QAM [facility] Stop: 12/28/18 08:59 Last Admin: 12/03/18 09:29 Dose: 1 cap Zolpidem Tartrate (Ambien) 1.25 mg PO HSZ PRN PRN Reason: Insomnia Stop: 12/27/18 21:30 Last Admin: 12/04/18 00:08 Dose: 1.25 mg _ (1) Atrial fibrillation Atrial fibrillation type: permanent Qualified Code(s): I48.2 - Chronic atrial fibrillation (2) Mitral regurgitation Cardiac valve disease etiology: etiology unspecified Qualified Code(s): I34.0 - Nonrheumatic mitral (valve) insufficiency (3) CKD (chronic kidney disease) Chronic kidney disease stage: stage 4 (severe) Qualified Code(s): N18.4 - Chronic kidney disease, stage 4 (severe)
[2018-12-04] MEDS: NEPHROCAPS PO SCH (16:37)
[2018-12-04] MEDS: ASPIRIN 81 MG ECTAB PO SCH (16:38)
[2018-12-04] MEDS: CALCITRIOL 0.25 MCG CAPSULE PO SCH (16:41)
[2018-12-04] MEDS: cefTRIAXone SODIUM 2,000 MG in DEXTROSE 5% 50 ML IV SCH (16:43)
[2018-12-04] MEDS: POLYETHYLENE (MIRALAX) 17 GM PACK PO SCH (16:45)
[2018-12-04] MEDS: FLUOCINONIDE 0.05% CR 15 GM TUBE EXT SCH (16:48)
[2018-12-04] MEDS: AMIODARONE 200 MG TAB PO SCH (16:51)
[2018-12-04] MEDS: IPRATROPIUM BROMIDE/ALBUTEROL respimat INH INH PRN (17:13)
[2018-12-04] MEDS ORDERED: MoRPHine SULFATE 4 MG/ML 1 ML CARP\\VIAL IV STA (17:14)
[2018-12-04] MEDS: NITROGLYCERIN SL 0.4 MG/TAB TAB SL PRN (17:16)
[2018-12-04] MEDS: MAGNESIUM HYDROXIDE SUSP 30 ML UDC PO PRN (17:34)
[2018-12-04] MEDS: SIMVASTATIN 40 MG TAB PO SCH (21:01)
[2018-12-04] MEDS: INSULIN GLARGINE SOLOSTAR 100 UNITS/ML 3 ML PEN SQ SCH (21:04)
[2018-12-05] MEDS: ACETAMINOPHEN 325 MG TAB PO PRN ×2 (02:46→21:29)
[2018-12-05] MEDS: LEVOTHYROXINE SODIUM 75 MCG TABLET PO SCH (05:48)
[2018-12-05 06:08] LABS: Hematocrit (blood only) 39.2 % (42-52); Hemoglobin 12.1 g/dL (14.0-18.0); Mean Corpuscular Hgb Conc 30.9 g/dL (32-36); Mean Corpuscular Volume 92.7 fL (80-100); RDW Coefficient of Variation 19.6 % (11.5-14.5); RDW Standard Deviation 65.6 fL (36.4-46.3); Red Blood Count 4.23 M/uL (4.7-6.1); White Blood Count 6.48 K/uL (4.8-10.8)
[2018-12-05 06:57] LABS: BUN Creatinine Ratio 16.4 (10-20); Calcium 8.1 mg/dl (8.5-10.1); Creatinine Clr Calc Pharmacy 32.7 ml/min; Est GFR (African American) 33.6; Potassium 3.6 mmol/L (3.5-5.1)
[2018-12-05 07:07] LABS: Mean Platelet Volume 9.5 fL (7.4-10.4); Platelet Count 96 K/uL (130-400)
[2018-12-05] MEDS: CALCIUM CARBONATE 500 MG CHEWABLE TAB PO SCH ×3 (08:04→17:53)
[2018-12-05] MEDS: CARVEDILOL 6.25 MG TAB PO SCH ×2 (08:04→16:01)
[2018-12-05] MEDS: ALLOPURINOL 100 MG TAB PO SCH ×2 (08:04→21:27)
[2018-12-05] MEDS: BUMETANIDE 1 MG TAB PO SCH ×2 (08:04→21:23)
[2018-12-05] MEDS: APIXABAN 2.5 MG TAB PO SCH ×2 (08:05→21:25)
[2018-12-05] MEDS: FLUOCINONIDE 0.05% CR 15 GM TUBE EXT SCH (08:05)
[2018-12-05] MEDS: ASPIRIN 81 MG ECTAB PO SCH (08:51)
[2018-12-05] MEDS: DOCUSATE SODIUM 100 MG CAP PO SCH ×2 (08:51→21:24)
[2018-12-05] MEDS: NEPHROCAPS PO SCH (08:52)
[2018-12-05] MEDS: CALCITRIOL 0.25 MCG CAPSULE PO SCH (08:53)
[2018-12-05] MEDS: INSULIN ASPART 100 UNITS/ML 3 ML PEN SC SCH ×4 (08:54→21:32)
--- NOTE | 2018-12-05 11:23 | Nephrology Progress Note ---
Date of Service December 05, 2018 Assessment & Plan (1) ESRD (end stage renal disease) on dialysis: ESRD on HD TTS. Admitted with lower extremity cellulitis, culture grow Klebsiella blood culture negative. Had dialysis yesterday, currently blood pressure, electrolyte and volume status acceptable. Unclear etiology for Rt lower back and flank pain, could be musculoskeletal pain or positional. No swelling, erythema on exam. CT A/P in October was unremarkable. UA with no pyuria, hematuria. --keep leg elevated, continue antibiotic, suggest ID eval for worsenign rt leg ulcer --continue on Bumex 2 milligram twice a day, DC Metolazone -- continue on boost 1 can p.o. t.i.d --waiting for discharge to [facility] rehab --left arm nephrology precaution, no further IV line or blood draw once current peripheral line is removed. Will follow (2) Angina pectoris, unspecified: (3) Cellulitis: (4) S/P admission to ICU (intensive care unit): -- 45 minutes critical care time provided. Plan of care discussed w/ ICU team and staff educator Ramírez Grimes was seen and examined in his with his family at bedside. Rt leg pain and erythema seems to have worsened again. No fever, chills, leukocytosis. Denies any significant shortness of breath or chest pain, no fever or chills. Blood pressure remained low but stable, asymptomatic. Reports not feeling well after Hd yesterday. Physical Exam 2 Vital Signs (Past 24 Hours): Last Vital Signs Temp 36.7 C 12/05/18 07:05 Pulse 71 12/05/18 07:05 Resp 18 12/05/18 07:05 BP 114/66 12/05/18 07:05 Pulse Ox 97 12/05/18 07:05 Constitutional: WD/WN, vitals as above Respiratory: Auscultation: + diminished lung sounds Cardiovascular: Heart Sounds: normal S1 and normal S2 Extremities: + edema Skin: + ulcer and + erythema Neurologic: moves all extremities and awake Psychiatric: Orientation: alert and oriented x 3 _ (1) Cellulitis Laterality: right Site of cellulitis: extremity Site of cellulitis of extremity: lower extremity Site of cellulitis of trunk: Qualified Code(s): L03.115 - Cellulitis of right lower limb
[2018-12-05] MEDS: AMIODARONE 200 MG TAB PO SCH (11:46)
[2018-12-05] MEDS: cefTRIAXone SODIUM 2,000 MG in DEXTROSE 5% 50 ML IV SCH (14:14)
--- NOTE | 2018-12-05 16:09 | Hospitalist Progress Note ---
Date of Service December 05, 2018 Assessment & Plan (1) Chest pain: episode on 11/03 at rest, troponin negative and EKG normal relieved with nitro has long standing history of chronic angina due to ischemic heart disease will continue to monitor, no complaints of chest pain today (2) Septic shock: shock resolved for several days, BP maintained off of pressors wound culture grew Klebsiella but both sets of blood cultures negative taper antibiotics to Rocephin and continue WBC normal for days, no fever cellulitis improving very slowly, wound care following right leg still hot and tender after almost a week of treatment will ask ID to evaluate tomorrow, give recommendations was planning on completing one more week of Rocephin but may need longer silver dressings being applied should involve wound clinic on discharge will go to [facility] once medically stable, anticipate in 2-3 days depending on ID recommendations (3) Cellulitis: skin continues to improve, minimal redness today right leg feels more warm and more tender, open area continues to weap still with venous stasis ulcer, wound care following Rocephin, day 8 total of antibiotics today as above, will ask ID to evaluate and give recommendations for duration of antibiotics left arm with US guided peripheral (4) Elevated troponin: earlier in admission troponin peaked at 0.2 no new wall motion abnormalities likely demand ischemia in setting of hypotension, septic shock (5) CAD (coronary artery disease), [place] coronary artery: - Cont aspirin 81 mg, amiodarone 200 mg, Coreg 6.25 mg PO BID no current chest pain (6) HLD (hyperlipidemia): - Cont simvastatin 40 mg daily (7) Ischemic cardiomyopathy: continue Bumex slight volume overload but overall improved utilizing HD for fluid removal continue Coreg (8) Pulmonary hypertension: - Stable (9) Mitral regurgitation: - Stable (10) GERD (gastroesophageal reflux disease): (11) Aortic stenosis: (12) Chronic combined systolic and diastolic CHF (congestive heart failure): - EF is 20-25% on echo slightly overloaded on exam overload due to renal dysfunction (13) Diabetes: - ISS with accuchecks, achs - Continue Lantus 35 U HS. monitor for hypoglycemia, no recent episodes (14) Atrial fibrillation: - Continue on eliquis 2.5 mg BID continue Coreg and Amiodarone (15) Hypothyroidism: - Cont levothyroxine 75 mcg daily (16) CKD (chronic kidney disease): - Stage IV, on HD T-Th-Sat: HD on 12/04, patient very fatigued and winded afterwards, this is typical for him (17) DVT prophylaxis: -teds, scds, continue eliquis Plan: palliative consult on 11/29, POLST completed, DNR now patient and family would like patient to recover and go to rehab participating in PT/OT plan for rehab in 2-3 days, he is accepted to [facility] whenever medically stable Subjective patient having a good day today, tends to do better on non-dialysis days discussed case with Dr. Lockwood this morning, she had concerns about right lower leg cellulitis she suggested ID consult, I agreed right leg continues to be painful, weaping blister, warm to touch compared to left leg patient is eating well, ambulating better with assistance, he is looking forward to go to rehab updated family at the bedside labs reviewed Review of Systems All systems reviewed & are unremarkable except as noted in HPI & below Constitutional: + weakness Integumentary: + rash (bilateral legs, right worse than the left) and + skin ulcer (right lower leg, stasis ulcer that opened) Physical Exam 2 Vital Signs (Past 24 Hours): Last Vital Signs Temp 36.4 C L 12/05/18 15:23 Pulse 72 12/05/18 15:23 Resp 18 12/05/18 15:23 BP 92/53 L 12/05/18 15:23 Pulse Ox 96 12/05/18 15:23 Constitutional: WD/WN, vitals as above Eyes: PERRL, conjunctivae normal, anicteric sclerae ENMT: external ear and nose normal, oropharynx normal Neck: trachea midline, no thyromegaly Respiratory: normal respiratory effort, lungs clear to auscultation no cough Auscultation: + diminished lung sounds Cardiovascular: Rate/Rhythm: regular rate and regular rhythm Vessels: normal peripheral pulses Extremities: + pedal edema (improved overall, +1 in lower legs) Gastrointestinal (Abdomen): normal bowel sounds, soft, nontender, no hepatosplenomegaly Musculoskeletal: no cyanosis or clubbing, extremities motor strength 5/5 Skin: + rash (bilateral venous stasis ulcers, erythema, warm and tender. Right leg much warmer, more tender) and + ecchymosis (left forearm) Neurologic: patellar DTR's 2+ bilat, sensation intact and PERRL, EOMI, accommodation nl, no face palsy, no dysarthria Psychiatric: A+Ox3, euthymic affect Lymphatic: no cervical or axillary lymphadenopathy Results & Data Laboratory Results Laboratory Results - last 24 hr 12/04/18 12/04/18 12/04/18 16:36 17:30 20:45 WBC RBC Hgb Hct MCV MCH MCHC RDW Std Deviation RDW Coeff of Ebenezer Plt Count MPV Platelet Estimate Sodium Potassium Chloride Carbon Dioxide Anion Gap BUN Creatinine Est Cr Clr Drug Dosing Est GFR ( Amer) Est GFR (Non-Af Amer) BUN/Creatinine Ratio Glucose POC Glucose 130 H 185 H Calcium Troponin I 0.071 H* 12/05/18 12/05/18 12/05/18 05:57 05:57 07:28 WBC 6.48 RBC 4.23 L Hgb 12.1 L Hct 39.2 L MCV 92.7 MCH 28.6 MCHC 30.9 L RDW Std Deviation 65.6 H RDW Coeff of Ebenezer 19.6 H Plt Count 96 L MPV 9.5 Platelet Estimate Decreased Sodium 137 Potassium 3.6 Chloride 103 Carbon Dioxide 31 Anion Gap 3.0 BUN 35 H Creatinine 2.14 H D Est Cr Clr Drug Dosing 32.7 Est GFR ( Amer) 33.6 Est GFR (Non-Af Amer) 29.0 BUN/Creatinine Ratio 16.4 Glucose 67 L POC Glucose 77 Calcium 8.1 L Troponin I 12/05/18 11:25 WBC RBC Hgb Hct MCV MCH MCHC RDW Std Deviation RDW Coeff of Ebenezer Plt Count MPV Platelet Estimate Sodium Potassium Chloride Carbon Dioxide Anion Gap BUN Creatinine Est Cr Clr Drug Dosing Est GFR ( Amer) Est GFR (Non-Af Amer) BUN/Creatinine Ratio Glucose POC Glucose 112 H Calcium Troponin I Medications Administered Current Inpatient Medications Acetaminophen (Tylenol) 650 mg PO Q4H PRN PRN Reason: Moderate Pain Stop: 12/27/18 21:30 Last Admin: 12/05/18 02:46 Dose: 650 mg Hydrocodone Bitart/Acetaminophen ([place] 5/325) 1 tab PO Q4H PRN PRN Reason: Pain Stop: 12/13/18 20:59 Last Admin: 12/03/18 01:22 Dose: 1 tab Albuterol (Combivent Respimat) 1 puffs INH Q6 PRN PRN Reason: Shortness Of Breath Stop: 12/27/18 21:30 Last Admin: 12/04/18 17:13 Dose: 1 puffs Albuterol (Duoneb) 3 ml NEB Q4R PRN PRN Reason: Shortness Of Breath Or Wheezin Stop: 12/27/18 21:30 Allopurinol (Zyloprim) 100 mg PO BID [facility] Stop: 12/27/18 21:30 Last Admin: 12/05/18 08:04 Dose: 100 mg Amiodarone HCl (Cordarone) 200 mg PO QDL [facility] Stop: 12/28/18 11:29 Last Admin: 12/05/18 11:46 Dose: 200 mg Apixaban (Eliquis) 2.5 mg PO BID [facility] Stop: 12/27/18 21:30 Last Admin: 12/05/18 08:05 Dose: 2.5 mg Aspirin (Ecotrin Ectab) 81 mg PO DAILY [facility] Stop: 12/28/18 10:59 Last Admin: 12/05/18 08:51 Dose: 81 mg Bumetanide (Bumex) 2 mg PO BID [facility] Stop: 12/27/18 21:30 Last Admin: 12/05/18 08:04 Dose: 2 mg Calcitriol (Racaltrol) 0.5 mcg PO QAM [facility] Stop: 12/28/18 08:59 Last Admin: 12/05/18 08:53 Dose: 0.5 mcg Calcium Carbonate (Tums) 500 mg PO TIDM [facility] Stop: 01/03/19 11:59 Last Admin: 12/05/18 11:46 Dose: 500 mg Carvedilol (Coreg) 6.25 mg PO BIDM [facility] Stop: 12/28/18 07:59 Last Admin: 12/05/18 16:01 Dose: Not Given Dextrose (Dextrose 50%) 25 - 50 ml IV UD PRN; Protocol PRN Reason: Hypoglycemia Protocol Stop: 12/27/18 21:30 Docusate Sodium (Colace) 100 mg PO BID [facility] Stop: 12/27/18 21:30 Last Admin: 12/05/18 08:51 Dose: 100 mg Fluocinonide (Lidex 0.5%) 1 appln EXT DAILY [facility] Stop: 12/29/18 08:59 Last Admin: 12/05/18 08:05 Dose: 1 appln Glucagon (Glucagen) 1 mg SQ UD PRN; Protocol PRN Reason: Hypoglycemia Protocol Stop: 12/27/18 21:30 Glucose (Glucose 40%) 15 - 30 gm PO UD PRN; Protocol PRN Reason: Hypoglycemia Protocol Stop: 12/27/18 21:30 Glucose (Dex4 Glucose) 4 - 8 tabs PO UD PRN; Protocol PRN Reason: Hypoglycemia Protocol Stop: 12/27/18 21:30 Ceftriaxone Sodium 2,000 mg/ (Dextrose) 50 mls @ 100 mls/hr IV Q24H [facility] Stop: 12/11/18 17:34 Last Infusion: 12/05/18 15:46 Dose: Infused Insulin Aspart (Novolog Flexpen) 0 units SC [facility]; Protocol Stop: 12/27/18 23:29 Last Admin: 12/05/18 12:32 Dose: 1 units Insulin Glargine (Lantus Solostar Pen) 0 units SQ HS [facility]; Protocol Stop: 01/02/19 20:59 Last Admin: 12/04/18 21:04 Dose: 26 units Levothyroxine Sodium (Synthroid) 75 mcg PO DAILYBB [facility] Stop: 12/28/18 06:29 Last Admin: 12/05/18 05:48 Dose: 75 mcg Magnesium Hydroxide (Milk Of Magnesia) 30 ml PO Q6H PRN PRN Reason: Indigestion Stop: 12/28/18 09:44 Last Admin: 12/04/18 17:34 Dose: 30 ml Miscellaneous (Carbohydrates For Hypoglycemia) 15 - 30 gm PO UD PRN PRN Reason: Hypoglycemia Treatment Stop: 12/27/18 21:30 Last Admin: 11/30/18 16:07 Dose: 15 gm Miscellaneous Information (Consult Glycemic Management Pharmacy) 1 ea N/A UD PRN PRN Reason: Consult Stop: 12/27/18 21:56 Nitroglycerin (Nitrostat) 0.4 mg SL DAILY PRN PRN Reason: Chest Pain Stop: 12/27/18 21:30 Last Admin: 12/04/18 17:16 Dose: 0.4 mg Ondansetron HCl (Zofran) 4 mg IV Q4H PRN PRN Reason: Nausea And Vomiting Stop: 12/27/18 21:30 Simvastatin (Zocor) 40 mg PO HS [facility] Stop: 12/27/18 21:30 Last Admin: 12/04/18 21:01 Dose: 40 mg Vitamin B Complex/Folic Acid (Nephrocaps) 1 cap PO QAM [facility] Stop: 12/28/18 08:59 Last Admin: 12/05/18 08:52 Dose: 1 cap Zolpidem Tartrate (Ambien) 1.25 mg PO HSZ PRN PRN Reason: Insomnia Stop: 12/27/18 21:30 Last Admin: 12/04/18 00:08 Dose: 1.25 mg _ (1) Atrial fibrillation Atrial fibrillation type: permanent Qualified Code(s): I48.2 - Chronic atrial fibrillation (2) Mitral regurgitation Cardiac valve disease etiology: etiology unspecified Qualified Code(s): I34.0 - Nonrheumatic mitral (valve) insufficiency (3) CKD (chronic kidney disease) Chronic kidney disease stage: stage 4 (severe) Qualified Code(s): N18.4 - Chronic kidney disease, stage 4 (severe)
[2018-12-05] MEDS: SIMVASTATIN 40 MG TAB PO SCH (21:25)
[2018-12-05] MEDS: ZOLPIDEM TARTRATE 5 MG TAB PO PRN (21:30)
[2018-12-05] MEDS: INSULIN GLARGINE SOLOSTAR 100 UNITS/ML 3 ML PEN SQ SCH (21:31)
[2018-12-06] MEDS: ACETAMINOPHEN 325 MG TAB PO PRN ×4 (01:15→22:53)
[2018-12-06] MEDS: LEVOTHYROXINE SODIUM 75 MCG TABLET PO SCH (06:19)
[2018-12-06 07:49] LABS: Hematocrit (blood only) 40.1 % (42-52); Hemoglobin 12.3 g/dL (14.0-18.0); Mean Corpuscular Hgb Conc 30.7 g/dL (32-36); RDW Coefficient of Variation 19.4 % (11.5-14.5); RDW Standard Deviation 65.8 fL (36.4-46.3); Red Blood Count 4.31 M/uL (4.7-6.1); White Blood Count 6.49 K/uL (4.8-10.8)
[2018-12-06 07:55] LABS: Mean Platelet Volume 10.2 fL (7.4-10.4); Platelet Count 98 K/uL (130-400)
[2018-12-06 08:11] LABS: Basophils # (auto) 0.01 K/uL (0-0.2); Basophils % (auto) 0.2 %; Eosinophils # (auto) 0.16 K/uL (0-0.5); Eosinophils % (auto) 2.5 %; Immature Granulocytes # (auto) 0.03 K/uL (0.00-0.02); Immature Granulocytes % (auto) 0.5 %; Lymphocytes # (auto) 0.59 K/uL (1.2-3.4); Lymphocytes % (auto) 9.1 %; Monocytes # (auto) 0.69 K/uL (0.11-0.59); Monocytes % (auto) 10.6 %; Neutrophils # (auto) 5.01 K/uL (1.4-6.5); Neutrophils % (auto) 77.1 %
[2018-12-06 08:14] LABS: Calcium 8.4 mg/dl (8.5-10.1); Creatinine Clr Calc Pharmacy 29.9 ml/min; Est GFR (African American) 30.2; Potassium 3.6 mmol/L (3.5-5.1)
[2018-12-06] MEDS: DOCUSATE SODIUM 100 MG CAP PO SCH ×2 (08:36→20:58)
[2018-12-06] MEDS: NEPHROCAPS PO SCH (08:36)
[2018-12-06] MEDS: ALLOPURINOL 100 MG TAB PO SCH ×2 (08:36→20:57)
[2018-12-06] MEDS: CALCIUM CARBONATE 500 MG CHEWABLE TAB PO SCH ×3 (08:37→17:50)
[2018-12-06] MEDS: BUMETANIDE 1 MG TAB PO SCH ×2 (08:37→21:20)
[2018-12-06] MEDS: CARVEDILOL 6.25 MG TAB PO SCH ×2 (08:37→17:51)
[2018-12-06] MEDS: APIXABAN 2.5 MG TAB PO SCH ×2 (08:37→20:58)
[2018-12-06] MEDS: CALCITRIOL 0.25 MCG CAPSULE PO SCH (08:38)
[2018-12-06] MEDS: ASPIRIN 81 MG ECTAB PO SCH (08:38)
[2018-12-06] MEDS: FLUOCINONIDE 0.05% CR 15 GM TUBE EXT SCH (08:39)
[2018-12-06] MEDS: INSULIN ASPART 100 UNITS/ML 3 ML PEN SC SCH ×4 (08:42→21:30)
--- NOTE | 2018-12-06 10:30 | Infectious Disease Consult ---
Date of Consultation December 06, 2018 Assessment & Plan (1) Cellulitis: agree with rocephin daily, would give additional 14 days min. can follow in wound center post d/c from the hospital and duration can be extended if needed. alternative po option would be omnicef 300mg every other day x 14 days. continue local wound care. History of Present Illness Attending Physician: Jacques Garcia Sharri pt admitted on 11/27 with increased swelling in legs and large blister on rle. debrided and cultured - culture growing K. oxytoca, resistant to ancef and I to amp/sulbactam. has bee on rocephin since 12/01. plans to d/c to rehab upon d/c. pt does not speak Serbian, is at bedside and provides translation. pt with O2 mask, lethargic but appropriate. denies pain in leg. tolerating abx. on HD, most recent creat 2.9. wbc nml. Blood cultures from admission are negative and final. afebrile since admission. states still with some swelling in legs but overall improved. no n/v/d. CXR negative for infiltrate in ER, Dopplers of b /l legs negative for clot. states drainage from rle wound improving. per chart, improving but slowly. still with erythema, states warmth is decreased. tolerating dressing changes. Allergies Allergy/AdvReac Type Severity Reaction Status Date / Time No Known Allergies Allergy Verified 11/18/18 09:32 Home Medications Home Medications Medication Instructions Recorded Confirmed Type allopurinol 100 mg PO BID 07/13/18 11/27/18 History amiodarone 200 mg PO QDL 07/13/18 11/27/18 History aspirin [Aspirin Low Dose] 81 mg PO UD 07/13/18 11/27/18 History calcitriol 0.5 mcg PO QAM 07/13/18 11/27/18 History insulin glargine [Basaglar KwikPen 35 unit SUBCUT HS 07/13/18 11/27/18 History U-100 Insulin] levothyroxine 75 mcg PO QAM 07/13/18 11/27/18 History potassium chloride 40 meq PO BID 07/13/18 11/27/18 History simvastatin 40 mg PO HS 07/13/18 11/27/18 History zolpidem 1.25 mg PO DIRECTED PRN 07/13/18 11/27/18 History polyethylene glycol 3350 [Miralax] 17 g PO DAILY #30 ea 07/15/18 11/27/18 Rx flaxseed oil 1,000 mg PO TID 10/05/18 11/27/18 History nitroglycerin 1 tab SUBLINGUAL DAILY PRN 10/05/18 11/27/18 History docusate sodium [Colace] 100 mg PO BID 11/05/18 11/27/18 History B complex with C#20-folic acid 1 cap PO QAM #90 cap 11/15/18 11/27/18 Rx [Renal Caps] apixaban [Eliquis] 2.5 mg PO BID #60 tab 11/15/18 11/27/18 Rx bumetanide 2 mg PO BID #60 tab 11/15/18 11/27/18 Rx insulin aspart U-100 [Novolog 1 units SC ACHS #1 pen 11/15/18 11/27/18 Rx Flexpen U-100 Insulin] metolazone 2.5 mg PO WK 11/18/18 11/27/18 History carvedilol 6.25 mg PO BIDM 11/27/18 11/27/18 History fluocinonide 1 applic TOPICAL UD 11/27/18 11/27/18 History ipratropium-albuterol [Combivent 1 puff INHALATION Q6 PRN 11/27/18 11/27/18 History Respimat] Patient History Medical History Septic shock Cellulitis Elevated troponin Diabetes CAD (coronary artery disease), [place] coronary artery Atrial fibrillation (Chronic) Hypothyroidism HLD (hyperlipidemia) (Chronic) Aortic stenosis (Chronic) GERD (gastroesophageal reflux disease) (Chronic) Chronic combined systolic and diastolic CHF (congestive heart failure) (Chronic) CKD (chronic kidney disease), stage III (Chronic) Ischemic cardiomyopathy (Chronic) Pulmonary hypertension (Chronic) Arthritis (Chronic) Diabetes Surgical History S/P cardiac pacemaker procedure Family History Other Family history non-contributory Social History marital status: Current Living Situation: Spouse Feels Safe at Home: Yes Smoking Status: Never smoker Second Hand Exposure: No Hx Alcohol Use: No Hx Substance Use: No Beliefs That Will Affect Care: None Communication Ability: Effective Review of Systems remaining ros reviewed and are negative Physical Exam 2 Vital Signs (Past 24 Hours): Last Vital Signs Temp 36.3 C L 12/06/18 07:14 Pulse 77 12/06/18 07:14 Resp 22 12/06/18 07:14 BP 106/67 12/06/18 07:14 Pulse Ox 93 12/06/18 07:14 Constitutional: WD/WN, vitals as above Eyes: PERRL, conjunctivae normal, anicteric sclerae ENMT: external ear and nose normal, oropharynx normal Neck: normal visual inspection Respiratory: normal respiratory effort, lungs clear to auscultation Auscultation: + diminished lung sounds Cardiovascular: Rate/Rhythm: regular rate and regular rhythm Extremities: + calf tenderness, + pedal edema and + edema Gastrointestinal (Abdomen): normal bowel sounds, soft, nontender, no hepatosplenomegaly Musculoskeletal: no cyanosis or clubbing, extremities motor strength 5/5 Skin: no rashes, warm and dry rle dressing intact, min yellow drainage, + warm to touch, non tender, + erythema with chronic changes as well. lle dressing d/c/i, no erythema noted, no warmth or tenderness. Psychiatric: A+Ox3, euthymic affect Results & Data Laboratory Results Microbiology 11/27/18 17:02 Blood Blood Culture - Final No growth 11/27/18 16:57 Blood Blood Culture - Final No growth 11/27/18 17:48 Leg,Right Gram Stain - Final 11/27/18 17:48 Leg,Right Wound Culture - Final Klebsiella oxytoca _ (1) Cellulitis Laterality: right Site of cellulitis: extremity Site of cellulitis of extremity: lower extremity Site of cellulitis of trunk: Qualified Code(s): L03.115 - Cellulitis of right lower limb
--- NOTE | 2018-12-06 11:49 | Nephrology Progress Note ---
Date of Service December 06, 2018 Assessment & Plan (1) ESRD (end stage renal disease) on dialysis: ESRD secondary to cardiorenal syndrome, on HD TTS. Admitted with lower extremity cellulitis, culture grow Klebsiella, blood culture negative. Has been on Rocephin IV however right leg swelling, erythema seems to have worsened. Evaluated by ID this morning, suggested continue on current antibiotic or oral Omnicef every other day for 14 days total. Has cardiomyopathy with EF 20-25% status post AICD. Had dialysis yesterday, currently blood pressure, electrolyte and volume status acceptable. Unclear etiology for Rt lower back and flank pain, could be musculoskeletal pain or positional. No swelling, erythema on exam. CT A/P in October was unremarkable. UA with no pyuria, hematuria. --keep leg elevated, continue antibiotic --continue on Bumex 2 milligram twice a day -- continue on boost 1 can p.o. t.i.d --waiting for discharge to [facility] rehab --left arm nephrology precaution, no further IV line or blood draw once current peripheral line is removed. Will follow (2) Angina pectoris, unspecified: (3) Cellulitis: (4) S/P admission to ICU (intensive care unit): -- 45 minutes critical care time provided. Plan of care discussed w/ ICU team and staff mine warfare officer Ramírez Grimes was seen and examined in his with his family at bedside. Has persistent right leg pain and erythema. No fever, chills, leukocytosis. Denies any significant shortness of breath or chest pain, no fever or chills. Blood pressure remained low but stable, asymptomatic. Physical Exam 2 Vital Signs (Past 24 Hours): Last Vital Signs Temp 36.3 C L 12/06/18 07:14 Pulse 77 12/06/18 07:14 Resp 22 12/06/18 07:14 BP 106/67 12/06/18 07:14 Pulse Ox 93 12/06/18 07:14 Constitutional: WD/WN, vitals as above Respiratory: Auscultation: + diminished lung sounds Cardiovascular: Heart Sounds: normal S1 and normal S2 Extremities: + edema Skin: + ulcer and + erythema Neurologic: moves all extremities and awake Psychiatric: Orientation: alert and oriented x 3 _ (1) Cellulitis Laterality: right Site of cellulitis: extremity Site of cellulitis of extremity: lower extremity Site of cellulitis of trunk: Qualified Code(s): L03.115 - Cellulitis of right lower limb
[2018-12-06] MEDS: AMIODARONE 200 MG TAB PO SCH (11:55)
[2018-12-06] MEDS: cefTRIAXone SODIUM 2,000 MG in DEXTROSE 5% 50 ML IV SCH (14:17)
[2018-12-06] MEDS: IPRATROPIUM BROMIDE/ALBUTEROL respimat INH INH PRN (16:57)
[2018-12-06] MEDS: NITROGLYCERIN SL 0.4 MG/TAB TAB SL PRN (17:50)
[2018-12-06] MEDS: ZOLPIDEM TARTRATE 5 MG TAB PO PRN (20:55)
[2018-12-06] MEDS: SIMVASTATIN 40 MG TAB PO SCH (20:57)
[2018-12-06] MEDS: INSULIN GLARGINE SOLOSTAR 100 UNITS/ML 3 ML PEN SQ SCH (21:29)
[2018-12-07] MEDS ORDERED: NITROGLYCERIN SL 0.4 MG/TAB TAB SL STA (04:22)
[2018-12-07] MEDS: IPRATROPIUM BROMIDE/ALBUTEROL respimat INH INH PRN (05:07)
[2018-12-07] MEDS: LEVOTHYROXINE SODIUM 75 MCG TABLET PO SCH (06:45)
--- NOTE | 2018-12-07 08:23 | Hospitalist Progress Note ---
Date of Service December 06, 2018 Assessment & Plan (1) Chest pain: episode on 11/03 at rest, troponin negative and EKG normal relieved with nitro has long standing history of chronic angina due to ischemic heart disease Patient again had an episode of chest pain. EKG was ordered and showed a paced rate and rhythm. Patient was given nitro and this appears to have improved the pain. (2) Septic shock: shock resolved for several days, BP maintained off of pressors wound culture grew Klebsiella but both sets of blood cultures negative taper antibiotics to Rocephin and continue WBC normal for days, no fever cellulitis improving very slowly, wound care following right leg still hot and tender after almost a week of treatment ID recommends contiuing IV antibiotics. May switch to PO, however will do this once leg improves. silver dressings being applied should involve wound clinic on discharge will go to [facility] once medically stable, (3) Cellulitis: skin continues to improve, minimal redness today right leg feels more warm and more tender, open area continues to weap still with venous stasis ulcer, wound care following Rocephin, day 9 total of antibiotics today left arm with US guided peripheral (4) Elevated troponin: earlier in admission troponin peaked at 0.2 no new wall motion abnormalities likely demand ischemia in setting of hypotension, septic shock will receck torponin in am./ (5) CAD (coronary artery disease), [employer] coronary artery: - Cont aspirin 81 mg, amiodarone 200 mg, Coreg 6.25 mg PO BID Patient having signs of chronic angina (6) HLD (hyperlipidemia): - Cont simvastatin 40 mg daily (7) Ischemic cardiomyopathy: continue Bumex slight volume overload but overall improved utilizing HD for fluid removal continue Coreg (8) Pulmonary hypertension: - Stable (9) Mitral regurgitation: - Stable (10) GERD (gastroesophageal reflux disease): (11) Aortic stenosis: (12) Chronic combined systolic and diastolic CHF (congestive heart failure): - EF is 20-25% on echo slightly overloaded on exam overload due to renal dysfunction (13) Diabetes: - ISS with accuchecks, achs - Continue Lantus 35 U HS. monitor for hypoglycemia, no recent episodes (14) Atrial fibrillation: - Continue on eliquis 2.5 mg BID continue Coreg and Amiodarone (15) Hypothyroidism: - Cont levothyroxine 75 mcg daily (16) CKD (chronic kidney disease): - Stage IV, on HD T-Th-Sat: HD scheduled for tomorrow. (17) DVT prophylaxis: -teds, scds, continue eliquis Plan: palliative consult on 11/29, POLST completed, DNR now patient and family would like patient to recover and go to rehab participating in PT/OT plan for rehab in 2-3 days, he is accepted to [facility] health whenever medically stable May be later given his chest pain. Spent 45 minutes in management of patient. Subjective Patient was seen multiple times throughout the day. Patient reports feeling better. No chest pain, nausea, vomiting. Patient is concerned over his right leg cellulitis. His conitnues to notice erythema of his right leg. At 17:00 I was called to bedside as patient began having chest pain. BP was rechecked and systolic was above 90. Patient was given a dose of nitro and will monitor response. Constitutional: + weakness Respiratory: + dyspnea and + dyspnea on exertion; no cough Cardiovascular: + dyspnea, + dyspnea on exertion and + edema Musculoskeletal: + back pain (chronic, lower) and + swelling; no joint pain and no muscle weakness Integumentary: + rash (bilateral legs, right worse than the left) and + skin ulcer (right lower leg, stasis ulcer that opened) Physical Exam 2 Vital Signs (Past 24 Hours): Last Vital Signs Temp 36.6 C L 12/06/18 15:37 Pulse 69 12/06/18 15:37 Resp 18 12/06/18 15:37 BP 84/48 12/06/18 15:37 Pulse Ox 91 12/06/18 15:37 Physical Exam: Constitutional: WD/WN, vitals as above Eyes: PERRL, conjunctivae normal, anicteric sclerae ENMT: external ear and nose normal, oropharynx normal Neck: trachea midline, no thyromegaly Respiratory: normal respiratory effort, lungs clear to auscultation no cough Cardiovascular: Rate/Rhythm: regular rate and regular rhythm Vessels: normal peripheral pulses Extremities: + pedal edema (improved overall, +1 in lower legs) Gastrointestinal (Abdomen): normal bowel sounds, soft, nontender, no hepatosplenomegaly Musculoskeletal: no cyanosis or clubbing, extremities motor strength 5/5 Skin: + rash (bilateral venous stasis ulcers, erythema noted mainly on the right lower leg, warm and tender. Right leg much warmer, more tender) Neurologic: patellar DTR's 2+ bilat, sensation intact and PERRL, EOMI, accommodation nl, no face palsy, no dysarthria Psychiatric: A+Ox3, euthymic affect Lymphatic: no cervical or axillary lymphadenopathy _ (1) Mitral regurgitation Cardiac valve disease etiology: etiology unspecified Qualified Code(s): I34.0 - Nonrheumatic mitral (valve) insufficiency (2) Atrial fibrillation Atrial fibrillation type: permanent Qualified Code(s): I48.2 - Chronic atrial fibrillation (3) CKD (chronic kidney disease) Chronic kidney disease stage: stage 4 (severe) Qualified Code(s): N18.4 - Chronic kidney disease, stage 4 (severe)
[2018-12-07] MEDS: CALCIUM CARBONATE 500 MG CHEWABLE TAB PO SCH ×3 (08:33→17:08)
[2018-12-07] MEDS: ALLOPURINOL 100 MG TAB PO SCH ×2 (08:33→21:37)
[2018-12-07] MEDS: NEPHROCAPS PO SCH (08:33)
[2018-12-07] MEDS: DOCUSATE SODIUM 100 MG CAP PO SCH ×2 (08:34→21:35)
[2018-12-07] MEDS: BUMETANIDE 1 MG TAB PO SCH ×2 (08:34→21:34)
[2018-12-07] MEDS: APIXABAN 2.5 MG TAB PO SCH ×2 (08:34→21:35)
[2018-12-07] MEDS: ASPIRIN 81 MG ECTAB PO SCH (08:35)
[2018-12-07] MEDS: CALCITRIOL 0.25 MCG CAPSULE PO SCH (08:35)
[2018-12-07 08:57] LABS: Hematocrit (blood only) 39.7 % (42-52); Hemoglobin 12.1 g/dL (14.0-18.0); Mean Corpuscular Hgb Conc 30.5 g/dL (32-36); Mean Corpuscular Volume 92.3 fL (80-100); RDW Coefficient of Variation 19.5 % (11.5-14.5); RDW Standard Deviation 65.5 fL (36.4-46.3); White Blood Count 7.93 K/uL (4.8-10.8)
[2018-12-07] MEDS: INSULIN ASPART 100 UNITS/ML 3 ML PEN SC SCH ×4 (08:57→21:36)
[2018-12-07 09:08] LABS: Mean Platelet Volume 10.1 fL (7.4-10.4); Platelet Count 84 K/uL (130-400)
[2018-12-07 09:16] LABS: Anisocytosis Present; Basophils # (auto) 0.01 K/uL (0-0.2); Basophils % (auto) 0.1 %; Eosinophils # (auto) 0.15 K/uL (0-0.5); Eosinophils % (auto) 1.9 %; Immature Granulocytes # (auto) 0.05 K/uL (0.00-0.02); Immature Granulocytes % (auto) 0.6 %; Lymphocytes # (auto) 0.78 K/uL (1.2-3.4); Lymphocytes % (auto) 9.8 %; Monocytes # (auto) 0.48 K/uL (0.11-0.59); Monocytes % (auto) 6.1 %; Neutrophils # (auto) 6.46 K/uL (1.4-6.5); Neutrophils % (auto) 81.5 %
[2018-12-07 09:44] LABS: Calcium 8.6 mg/dl (8.5-10.1); Creatinine Clr Calc Pharmacy 32.6 ml/min; Est GFR (African American) 33.4; Est GFR (Non-African American) 28.8; Potassium 3.6 mmol/L (3.5-5.1)
[2018-12-07 09:52] LABS: Troponin I 0.064 ng/ml (0-0.045)
[2018-12-07] MEDS: FLUOCINONIDE 0.05% CR 15 GM TUBE EXT SCH (14:04)
[2018-12-07] MEDS: CARVEDILOL 6.25 MG TAB PO SCH ×2 (14:04→17:08)
[2018-12-07] MEDS: RANOLAZINE 500 MG ER TAB PO SCH ×2 (14:06→21:37)
[2018-12-07] MEDS: AMIODARONE 200 MG TAB PO SCH (14:07)
--- NOTE | 2018-12-07 14:29 | Pharmacy Report ---
Pharmacy Glycemic Short Note 2 - Date of Service December 07, 2018 - Glycemic Short BSG Results (Last 24 hours): 12/06/18 12/06/18 12/07/18 16:41 20:22 07:47 Glucose POC Glucose 119 H 189 H 118 H 12/07/18 12/07/18 08:48 13:53 Glucose 158 H POC Glucose 86 OUTPATIENT ANTIDIABETIC REGIMEN: * Basaglar 35 units SQ HS * Novolog SQ ACHS per scale 1 unit w/ each meal + correctional insulin ( 1 unit per 25mg/dL above 150) * A1c = 6.8% 11/06/18 ASSESSMENT: 12/07 * Mr. Davidson received 40 units of insulin yesterday * Fasting BSG of 118 mg/dL is at goal, therefore no change will be made to Lantus * 2/3 post prandial BSGs were elevated yesterday. Will slightly tighten carb ratio. 12/04 * Patient received 15 units of insulin yesterday. Lantus dose was decreased significantly based on fasting BSG of 71 mg/dL, however Lantus was held last evening (RN documented not given per discussion with MD). * Fasting BSG today is above goal, 162 mg/dL. I have ordered 15 units for this morning to make up for skipped dose. * No changes will be made to Novolog today. Carb ratio was loosened yesterday. 12/03 * Patient's BSGs have ranged from 131-185 yesterday. However the 185 was a post- prandial check. Therefore BSGs have been pretty good for this patient. * He received a total of 50 units of insulin yesterday - 32 units (more than half) was from basal insulin. * Fasting BSG this am = 71, much lower than goal range and lunch BSG = 101. Patient has been trending lower today. * Carb ratio was therefore loosened at lunch today and Lantus HS dose was adjusted to a scale. * Patient's appetite has been improving and he has been eating more carbs- will monitor if BSGs trend up. PLAN FOR INPATIENT GLYCEMIC CONTROL: * Basal insulin * Lantus per scale SQ qHS * BSG less than 120 give 20 units * BSG 120-180 give 23 units * BSG greater than 180 give 26 units * Bolus insulin - tighten carb ratio * NovoLog per scale ACHS or Q6hrs while NPO * Goal Range: Low 120 mg/dL - High 160 mg/dL * Correction Factor: 25 mg/dL/unit * Nutritional / Prandial insulin per carb ratio of 1 unit per 10 grams CHO consumed PLAN FOR DISCHARGE: * Although A1c close to goal, hospital educator did meet w/ patient and his . It appears that continuing the home Basaglar dose of 35 units daily would be appropriate. His Novolog dose with meals may need adjusted upwards based upon SMBG values post-prandially. I would estimate he would need at a minimum 4 units Novolog with each meal with this dose being titrated upwards by outpt provider. Web Coordinator also provided patient with a written scale for correctional insulin.
[2018-12-07] MEDS: cefTRIAXone SODIUM 2,000 MG in DEXTROSE 5% 50 ML IV SCH (14:45)
--- NOTE | 2018-12-07 15:01 | Nephrology Progress Note ---
Date of Service December 07, 2018 Assessment & Plan (1) ESRD (end stage renal disease) on dialysis: ESRD secondary to cardiorenal syndrome on HD TTS. Admitted with lower extremity cellulitis, culture +Klebsiella, blood culture negative. Current Rx Omnicef. Medical history is also notable for ischemic cardiomyopathy with EF 20- 25% status post AICD. -- HD TTS schedule -- Tolerating HD well today, UF goal ~3 L -- Qb acceptable via TDC -- Metabolic profile acceptable -- Remains on diuretics to encourage urine output -- Medications are appropriately dosed for IHD (including Eliquis) (2) Cellulitis: -- Omnicef -- Clinical observation (3) Systolic heart failure: -- No evidence of decompensated CHF at this time -- EKG without acute changes -- CP seems to have improved -- Labs being monitored by primary service Subjective Patient experienced chest pain overnight. EKG updated and labs reviewed. He was seen and evaluated during hemodialysis this afternoon. The patient was tolerating HD reasonably well. He reported some chronic back pain. He remains afebrile. Review of Systems All systems reviewed & are unremarkable except as noted in HPI & below Physical Exam 2 Vital Signs (Past 24 Hours): Last Vital Signs Temp 36.4 C L 12/07/18 14:20 Pulse 76 12/07/18 14:20 Resp 19 12/07/18 14:20 BP 126/70 12/07/18 14:20 Pulse Ox 98 12/07/18 14:20 Constitutional: + physical limitations and + frail appearing; no acute distress Eyes: + anicteric sclerae; no conjunctival abnormality ENMT: Mouth: + dry oral mucous membranes Neck: normal visual inspection and trachea midline Respiratory: no respiratory distress Auscultation: lungs clear to auscultation bilaterally Cardiovascular: Heart Sounds: normal S1 and normal S2; no gallop and no cardiac rub Extremities: + edema Gastrointestinal (Abdomen): Percussion/Palpation: abdomen soft; abdomen nontender Musculoskeletal: Extremities: no cyanosis Ankle: + skin erythema Skin: + ulcer; no rashes Neurologic: Motor/Sensory: no tremor and no asterixis Results & Data Laboratory Results Laboratory Results - last 24 hr 12/06/18 12/06/18 12/07/18 16:41 20:22 07:47 WBC RBC Hgb Hct MCV MCH MCHC RDW Std Deviation RDW Coeff of [place] Plt Count MPV Immature Gran % (Auto) Neut % (Auto) Lymph % (Auto) Edgar % (Auto) Eos % (Auto) Baso % (Auto) Immature Gran # (Auto) Neut # (Auto) Lymph # (Auto) Edgar # (Auto) Eos # (Auto) Baso # (Auto) Anisocytosis Sodium Potassium Chloride Carbon Dioxide Anion Gap BUN Creatinine Est Cr Clr Drug Dosing Est GFR ( Amer) Est GFR (Non-Af Amer) BUN/Creatinine Ratio Glucose POC Glucose 119 H 189 H 118 H Calcium Troponin I 12/07/18 12/07/18 12/07/18 08:48 08:48 13:53 WBC 7.93 RBC 4.30 L Hgb 12.1 L Hct 39.7 L MCV 92.3 MCH 28.1 MCHC 30.5 L RDW Std Deviation 65.5 H RDW Coeff of [place] 19.5 H Plt Count 84 L MPV 10.1 Immature Gran % (Auto) 0.6 Neut % (Auto) 81.5 Lymph % (Auto) 9.8 Edgar % (Auto) 6.1 Eos % (Auto) 1.9 Baso % (Auto) 0.1 Immature Gran # (Auto) 0.05 H Neut # (Auto) 6.46 Lymph # (Auto) 0.78 L Edgar # (Auto) 0.48 Eos # (Auto) 0.15 Baso # (Auto) 0.01 Anisocytosis Present Sodium 136 Potassium 3.6 Chloride 101 Carbon Dioxide 29 Anion Gap 6.0 BUN 47 H Creatinine 2.15 H Est Cr Clr Drug Dosing 32.6 Est GFR ( Amer) 33.4 Est GFR (Non-Af Amer) 28.8 BUN/Creatinine Ratio 22.0 H Glucose 158 H POC Glucose 86 Calcium 8.6 Troponin I 0.064 H* _ (1) Cellulitis Laterality: right Site of cellulitis: extremity Site of cellulitis of extremity: lower extremity Site of cellulitis of trunk: Qualified Code(s): L03.115 - Cellulitis of right lower limb
[2018-12-07] MEDS: CEFDINIR 300 MG CAP PO SCH (17:06)
[2018-12-07 17:35] LABS: Hepatitis B Surface Antibody Non-Immune
[2018-12-07 17:45] LABS: Hepatitis B Surface Antigen Neg (Neg)
[2018-12-07] MEDS: INSULIN GLARGINE SOLOSTAR 100 UNITS/ML 3 ML PEN SQ SCH (21:35)
[2018-12-07] MEDS: ATORVASTATIN 40 MG TAB PO SCH (21:36)
[2018-12-07] MEDS ORDERED: ZOLPIDEM TARTRATE 5 MG TAB PO PRN (21:57)
[2018-12-08] MEDS: NITROGLYCERIN SL 0.4 MG/TAB TAB SL PRN ×4 (01:33→16:26)
[2018-12-08] MEDS: ACETAMINOPHEN 325 MG TAB PO PRN ×2 (05:50→21:40)
[2018-12-08] MEDS: LEVOTHYROXINE SODIUM 75 MCG TABLET PO SCH (05:51)
--- NOTE | 2018-12-08 08:17 | Hospitalist Progress Note ---
Date of Service December 07, 2018 Assessment & Plan (1) Chest pain: Patient had episode of chest pain at rest on 11/03 and 11/05; troponin was not worse and EKG was negative relieved with nitro has long standing history of chronic angina due to ischemic heart disease Ranolazine was again started due to repeat chest pain. Discussed with cardiology. (2) Septic shock: shock resolved for several days, BP maintained off of pressors wound culture grew Klebsiella but both sets of blood cultures negative taper antibiotics to Rocephin and continue WBC normal for days, no fever cellulitis improving very slowly, wound care following right leg still hot and tender after almost a week of treatment ID recommends continuing IV antibiotics or can switch to PO. Patient is now refusing IV antibiotics. silver dressings being applied should involve wound clinic on discharge will go to [facility] once medically stable, (3) Cellulitis: skin continues to improve, minimal redness today right leg feels more warm and more tender, open area continues to weap still with venous stasis ulcer, wound care following Rocephin, day 10 total of antibiotics today will switch to PO antibiotics. left arm with US guided peripheral (4) Elevated troponin: earlier in admission troponin peaked at 0.2 no new wall motion abnormalities likely demand ischemia in setting of hypotension, septic shock repeated troponin was not higher than previous trop. (5) CAD (coronary artery disease), [place] coronary artery: - Cont aspirin 81 mg, amiodarone 200 mg, Coreg 6.25 mg PO BID Patient having signs of chronic angina (6) HLD (hyperlipidemia): Switched to atorvastatin 40 mg daily (7) Ischemic cardiomyopathy: continue Bumex slight volume overload but overall improved utilizing HD for fluid removal continue Coreg (8) Pulmonary hypertension: - Stable (9) Mitral regurgitation: - Stable (10) GERD (gastroesophageal reflux disease): (11) Aortic stenosis: (12) Chronic combined systolic and diastolic CHF (congestive heart failure): - EF is 20-25% on echo slightly overloaded on exam overload due to renal dysfunction (13) Diabetes: - ISS with accuchecks, achs - Continue Lantus 35 U HS. monitor for hypoglycemia, no recent episodes (14) Atrial fibrillation: - Continue on eliquis 2.5 mg BID continue Coreg and Amiodarone (15) Hypothyroidism: - Cont levothyroxine 75 mcg daily (16) CKD (chronic kidney disease): - Stage IV, on HD T-Th-Sat: HD scheduled for tomorrow. (17) DVT prophylaxis: -teds, scds, continue eliquis Plan: palliative consult on 11/29, POLST completed, DNR now patient and family would like patient to recover and go to rehab participating in PT/OT Unsure when patient canbe ready for discharge, he still appears sick. Given multiple comorbidities, may consider a cardio consult given his chest pain and SOB. Given that he has ESRD and severe ischemic cardiomyopathy, perhaps hospice may be an option for him. WILL CONTINUE TO MONITOR his clincal response. Spent 55 minutes in management of patient. Subjective Patient was seen with and daughter. There appears to be a language barrier. Family was under improession that patient had a heart attack. Patient reports that he does not want IV antibiotics as he believes this is causing his chest pain. He also believes that he no longer wants IV draws in the arm as he is trying to save the veins in the arm. Patient does not report any fever or chills. Patient continues to have erythema of his right leg. Patient continues to require 4 liters nasal cannula. It appears patient responded to nitro. Patient's family also wants to discontinue the ambien.. Constitutional: + weakness Respiratory: + dyspnea and + dyspnea on exertion; no cough Cardiovascular: + dyspnea, + dyspnea on exertion and + edema Musculoskeletal: + back pain (chronic, lower) and + swelling; no joint pain and no muscle weakness Integumentary: + rash (bilateral legs, right worse than the left) and + skin ulcer (right lower leg, stasis ulcer that opened) Physical Exam 2 Vital Signs (Past 24 Hours): Last Vital Signs Temp 36.4 C 12/07/18 14:20 Pulse 76 12/07/18 14:20 Resp 19 12/07/18 14:20 BP 126/70 12/07/18 14:20 Pulse Ox 98 12/07/18 14:20 Physical Exam: Constitutional: WD/WN, vitals as above Eyes: PERRL, conjunctivae normal, anicteric sclerae ENMT: external ear and nose normal, oropharynx normal Neck: trachea midline, no thyromegaly Respiratory: normal respiratory effort, lungs clear to auscultation no cough Cardiovascular: Rate/Rhythm: regular rate and regular rhythm Vessels: normal peripheral pulses Extremities: + pedal edema Gastrointestinal (Abdomen): normal bowel sounds, soft, nontender, no hepatosplenomegaly Musculoskeletal: no cyanosis or clubbing, extremities motor strength 5/5 Skin: + rash (bilateral venous stasis ulcers, erythema noted mainly on the right lower leg, warm and tender. Right leg much warmer, more tender) Neurologic: patellar DTR's 2+ bilat, sensation intact and PERRL, EOMI, accommodation nl, no face palsy, no dysarthria Psychiatric: A+Ox3, euthymic affect Lymphatic: no cervical or axillary lymphadenopathy _ (1) Mitral regurgitation Cardiac valve disease etiology: etiology unspecified Qualified Code(s): I34.0 - Nonrheumatic mitral (valve) insufficiency (2) Atrial fibrillation Atrial fibrillation type: permanent Qualified Code(s): I48.2 - Chronic atrial fibrillation (3) CKD (chronic kidney disease) Chronic kidney disease stage: stage 4 (severe) Qualified Code(s): N18.4 - Chronic kidney disease, stage 4 (severe)
[2018-12-08] MEDS: DOCUSATE SODIUM 100 MG CAP PO SCH ×2 (08:20→20:01)
[2018-12-08] MEDS: CARVEDILOL 6.25 MG TAB PO SCH ×2 (08:20→17:47)
[2018-12-08] MEDS: NEPHROCAPS PO SCH (08:20)
[2018-12-08] MEDS: ASPIRIN 81 MG ECTAB PO SCH (08:20)
[2018-12-08] MEDS: CALCITRIOL 0.25 MCG CAPSULE PO SCH (08:21)
[2018-12-08] MEDS: RANOLAZINE 500 MG ER TAB PO SCH ×2 (08:22→20:02)
[2018-12-08] MEDS: BUMETANIDE 1 MG TAB PO SCH ×2 (08:22→20:01)
[2018-12-08] MEDS: ALLOPURINOL 100 MG TAB PO SCH ×2 (08:22→20:02)
[2018-12-08] MEDS: APIXABAN 2.5 MG TAB PO SCH ×2 (08:22→20:01)
[2018-12-08] MEDS: CALCIUM CARBONATE 500 MG CHEWABLE TAB PO SCH ×3 (08:23→17:48)
[2018-12-08] MEDS: FLUOCINONIDE 0.05% CR 15 GM TUBE EXT SCH (08:24)
[2018-12-08] MEDS: INSULIN ASPART 100 UNITS/ML 3 ML PEN SC SCH ×4 (08:26→20:09)
--- NOTE | 2018-12-08 09:11 | Cardiology Consultation ---
Date of Consultation December 08, 2018 Assessment & Plan (1) Chest pain: Mr. Davidson is a 78-year-old male with a history of CAD s/p LAD Stents x 2 , Ischemic Cardiomyopathy (LVEF 20% to 25%) s/p Bi -V AICD January 2017, Chronic Atrial Fibrillation (rate controlled and on Coumadin), Hypertension, Dyslipidemia, Moderate , Severe MR, Moderate TR, Decreased RV Systolic Function, Type 2 Diabetes Mellitus, ESRD on HD, and Chronic Systolic CHF who was admitted on 11/27/2018 with LE Cellulitis and suspected Sepsis. On 12/04/2018 and 12/06/2018 patient experienced chest pain that was in left chest (under his left breast) which did not radiate and was without associated symptoms. Pain was constant and non-exertional. It is not clear how long this chest pain lasted ( describes about an hour's worth of the discomfort on one occasion - - but symptoms did eventually resolve after receiving SL NTG. EKG's while patient was having pain showed no ST segment changes or acute ischemic changes. Also there was no bump in his troponin related to these episodes of chest pain. His CP has some atypical characteristics, but in light of his history of CAD recommend the following: -- Increase Ranexa to 1000 mg bid. -- Continue Coreg 6.25 mg bid. -- If chest pain continues - start Imdur 15 mg daily if his BP allows. Present on Admission?: No (2) Coronary artery disease: -- Continue Atorvastatin 40 mg daily. -- Continue Aspirin 81 mg daily. -- Continue Coreg 6.25 mg bid. -- Continue Amiodarone 200 mg daily. Supervising Physician Co-Signing Physician Notes Noel Larios MD History of Present Illness Reason for Consultation: -- Chest Pain. -- CAD. Requesting Physician: Jacques Harrell Attending Physician: Noel Larios MD History of Present Illness Mr. Davidson is a 78-year-old male with a history of CAD s/p LAD Stents x 2, Ischemic Cardiomyopathy (LVEF 20% to 25%) s/p Bi -V AICD January 2017, Chronic Atrial Fibrillation (rate controlled and on Coumadin), Hypertension, Dyslipidemia, Moderate , Severe MR, Moderate TR, Decreased RV Systolic Function, Type 2 Diabetes Mellitus, ESRD on HD, and Chronic Systolic CHF who was admitted on 11/27/2018 with LE Cellulitis and suspected Sepsis. On 12/04/2018 and 12/06/2018 patient experienced chest pain that was in left chest (under his left breast) which did not radiate and was without associated symptoms. Pain was constant and non-exertional. It is not clear how long this chest pain lasted ( describes about an hour's worth of the discomfort on one occasion - - but symptoms did eventually resolve after receiving SL NTG. EKG's while patient was having pain showed no ST segment changes or acute ischemic changes. Also there was no bump in his troponin related to these episodes of chest pain. Patient is currently lying comfortably in bed and sleeping. History obtained through his . Allergies Allergy/AdvReac Type Severity Reaction Status Date / Time No Known Allergies Allergy Verified 11/18/18 09:32 Home Medications Home Medications Medication Instructions Recorded Confirmed Type allopurinol 100 mg PO BID 07/13/18 11/27/18 History amiodarone 200 mg PO QDL 07/13/18 11/27/18 History aspirin [Aspirin Low Dose] 81 mg PO UD 07/13/18 11/27/18 History calcitriol 0.5 mcg PO QAM 07/13/18 11/27/18 History insulin glargine [Basaglar KwikPen 35 unit SUBCUT HS 07/13/18 11/27/18 History U-100 Insulin] levothyroxine 75 mcg PO QAM 07/13/18 11/27/18 History potassium chloride 40 meq PO BID 07/13/18 11/27/18 History simvastatin 40 mg PO HS 07/13/18 11/27/18 History zolpidem 1.25 mg PO DIRECTED PRN 07/13/18 11/27/18 History polyethylene glycol 3350 [Miralax] 17 g PO DAILY #30 ea 07/15/18 11/27/18 Rx flaxseed oil 1,000 mg PO TID 10/05/18 11/27/18 History nitroglycerin 1 tab SUBLINGUAL DAILY PRN 10/05/18 11/27/18 History docusate sodium [Colace] 100 mg PO BID 11/05/18 11/27/18 History B complex with C#20-folic acid 1 cap PO QAM #90 cap 11/15/18 11/27/18 Rx [Renal Caps] apixaban [Eliquis] 2.5 mg PO BID #60 tab 11/15/18 11/27/18 Rx bumetanide 2 mg PO BID #60 tab 11/15/18 11/27/18 Rx insulin aspart U-100 [Novolog 1 units SC ACHS #1 pen 11/15/18 11/27/18 Rx Flexpen U-100 Insulin] metolazone 2.5 mg PO WK 11/18/18 11/27/18 History carvedilol 6.25 mg PO BIDM 11/27/18 11/27/18 History fluocinonide 1 applic TOPICAL UD 11/27/18 11/27/18 History ipratropium-albuterol [Combivent 1 puff INHALATION Q6 PRN 11/27/18 11/27/18 History Respimat] Patient History Medical History Septic shock Cellulitis Elevated troponin Diabetes CAD (coronary artery disease), [place] coronary artery Atrial fibrillation (Chronic) Hypothyroidism HLD (hyperlipidemia) (Chronic) Aortic stenosis (Chronic) GERD (gastroesophageal reflux disease) (Chronic) Chronic combined systolic and diastolic CHF (congestive heart failure) (Chronic) CKD (chronic kidney disease), stage III (Chronic) Ischemic cardiomyopathy (Chronic) Pulmonary hypertension (Chronic) Arthritis (Chronic) Diabetes Surgical History S/P cardiac pacemaker procedure Family History Other Family history non-contributory Social History marital status: Current Living Situation: Spouse Feels Safe at Home: Yes Smoking Status: Never smoker Second Hand Exposure: No Hx Alcohol Use: No Hx Substance Use: No Beliefs That Will Affect Care: None Communication Ability: Effective Physical Exam 2 Vital Signs (Past 24 Hours): Last Vital Signs Temp 36.7 C 12/08/18 07:33 Pulse 78 12/08/18 07:33 Resp 20 12/08/18 07:33 BP 93/60 L 12/08/18 07:33 Pulse Ox 97 12/08/18 07:33 Physical Exam: General: Patient is in no acute distress. HEENT: Head is atraumatic, normocephalic. EOMs intact. Sclera anicteric. Facies symmetric. No perioral cyanosis. Mucous membranes moist. Neck: Unable to assess JVP as patient is currently sleeping in reverse Trendelenberg -- but he sleeping comfortably which would suggest it is not elevated. Carotid upstrokes are +2 bilaterally. Chest and Lungs: Diminished breath sounds in bilateral bases. Otherwise clear. CVS: S1 and S2 slightly irregular, distant without obvious murmur, gallop, or rub. PMI is nonpalpable. No lifts, heaves, or thrills. No abdominal aortic or renal bruits. Abdominal exam: Bowel sounds present. Abdomen appears distended. No masses, organomegaly, or tenderness. Extremities: No obvious edema, dressings are intact. EKG's with CP show: -- Electronic biventricular pacing, underlying rhythm appears to be A-Fib. -- No ST depressions or elevations. Results & Data Laboratory Results Laboratory Results - last 24 hr 12/07/18 12/07/18 12/07/18 08:48 13:53 16:26 Sodium 136 Potassium 3.6 Chloride 101 Carbon Dioxide 29 Anion Gap 6.0 BUN 47 H Creatinine 2.15 H Est Cr Clr Drug Dosing 32.6 Est GFR ( Amer) 33.4 Est GFR (Non-Af Amer) 28.8 BUN/Creatinine Ratio 22.0 H Glucose 158 H POC Glucose 86 Calcium 8.6 Troponin I 0.064 H* NT-Pro-B Natriuret Pep Hep Bs Antigen Neg Hep Bs Antibody Non-Immune Hep Bs Antibody, Quant < 3.10 L 12/07/18 12/07/18 12/08/18 16:44 20:24 06:29 Sodium Potassium Chloride Carbon Dioxide Anion Gap BUN Creatinine Est Cr Clr Drug Dosing Est GFR ( Amer) Est GFR (Non-Af Amer) BUN/Creatinine Ratio Glucose POC Glucose 155 H 180 H Calcium Troponin I NT-Pro-B Natriuret Pep 6942 H Hep Bs Antigen Hep Bs Antibody Hep Bs Antibody, Quant 12/08/18 07:57 Sodium Potassium Chloride Carbon Dioxide Anion Gap BUN Creatinine Est Cr Clr Drug Dosing Est GFR ( Amer) Est GFR (Non-Af Amer) BUN/Creatinine Ratio Glucose POC Glucose 148 H Calcium Troponin I NT-Pro-B Natriuret Pep Hep Bs Antigen Hep Bs Antibody Hep Bs Antibody, Quant Medications Administered Active Medications Generic Name Dose Route Start Last Admin Trade Name Freq PRN Reason Stop Dose Admin Acetaminophen 650 mg 11/27/18 21:31 12/08/18 05:50 Tylenol PO 12/27/18 21:30 650 mg Q4H PRN Administration Moderate Pain Hydrocodone Bitart/Acetaminophen 1 tab 11/29/18 21:00 12/03/18 01:22 Fisher 5/325 PO 12/13/18 20:59 1 tab Q4H PRN Administration Pain Albuterol 1 puffs 11/27/18 21:31 12/07/18 05:07 Combivent Respimat INH 12/27/18 21:30 1 puffs Q6 PRN Administration Shortness Of Breath Albuterol 3 ml 11/27/18 22:06 Duoneb NEB 12/27/18 21:30 Q4R PRN Shortness Of Breath Or Wheezin Allopurinol 100 mg 11/27/18 21:31 12/08/18 08:22 Zyloprim PO 12/27/18 21:30 100 mg BID JANEL Administration Amiodarone HCl 200 mg 11/28/18 11:30 12/07/18 14:07 Cordarone PO 12/28/18 11:29 200 mg QDL JANEL Administration Apixaban 2.5 mg 11/27/18 21:31 12/08/18 08:22 Eliquis PO 12/27/18 21:30 2.5 mg BID JANEL Administration Aspirin 81 mg 11/28/18 11:00 12/08/18 08:20 Ecotrin Ectab PO 12/28/18 10:59 81 mg DAILY JANEL Administration Atorvastatin Calcium 40 mg 12/07/18 21:00 12/07/18 21:36 Lipitor PO 01/06/19 20:59 40 mg HS JANEL Administration Bumetanide 2 mg 11/27/18 21:31 12/08/18 08:22 Bumex PO 12/27/18 21:30 2 mg BID JANEL Administration Calcitriol 0.5 mcg 11/28/18 09:00 12/08/18 08:21 Racaltrol PO 12/28/18 08:59 0.5 mcg QAM JANEL Administration Calcium Carbonate 500 mg 12/04/18 12:00 12/08/18 08:23 Tums PO 01/03/19 11:59 500 mg TIDM JANEL Administration Carvedilol 6.25 mg 11/28/18 08:00 12/08/18 08:20 Coreg PO 12/28/18 07:59 6.25 mg BIDM JANEL Administration Cefdinir 300 mg 12/07/18 16:00 12/07/18 17:06 Omnicef PO 12/17/18 15:59 300 mg Q48H JANEL Administration Dextrose 25 - 50 ml 11/27/18 21:31 Dextrose 50% IV 12/27/18 21:30 UD PRN Hypoglycemia Protocol Protocol Docusate Sodium 100 mg 11/27/18 21:31 12/08/18 08:20 Colace PO 12/27/18 21:30 100 mg BID JANEL Administration Fluocinonide 1 appln 11/29/18 09:00 12/08/18 08:24 Lidex 0.5% EXT 12/29/18 08:59 Not Given DAILY JANEL Glucagon 1 mg 11/27/18 21:31 Glucagen SQ 12/27/18 21:30 UD PRN Hypoglycemia Protocol Protocol Glucose 15 - 30 gm 11/27/18 21:31 Glucose 40% PO 12/27/18 21:30 UD PRN Hypoglycemia Protocol Protocol Glucose 4 - 8 tabs 11/27/18 21:31 Dex4 Glucose PO 12/27/18 21:30 UD PRN Hypoglycemia Protocol Protocol Insulin Aspart 0 units 11/27/18 23:30 12/08/18 08:26 Novolog Flexpen SC 12/27/18 23:29 6 units ACHS JANEL Administration Protocol Insulin Glargine 0 units 12/03/18 21:00 12/07/18 21:35 Lantus Solostar Pen SQ 01/02/19 20:59 23 units HS JANEL Administration Protocol Levothyroxine Sodium 75 mcg 11/28/18 06:30 12/08/18 05:51 Synthroid PO 12/28/18 06:29 75 mcg DAILYBB JANEL Administration Magnesium Hydroxide 30 ml 11/28/18 09:45 12/04/18 17:34 Milk Of Magnesia PO 12/28/18 09:44 30 ml Q6H PRN Administration Indigestion Miscellaneous 15 - 30 gm 11/27/18 21:31 11/30/18 16:07 Carbohydrates For Hypoglycemia PO 12/27/18 21:30 15 gm UD PRN Administration Hypoglycemia Treatment Miscellaneous Information 1 ea 11/27/18 21:57 Consult Glycemic Management Pharmacy N/A 12/27/18 21:56 UD PRN Consult Nitroglycerin 0.4 mg 11/27/18 21:31 12/08/18 01:33 Nitrostat SL 12/27/18 21:30 0.4 mg DAILY PRN Administration Chest Pain Ondansetron HCl 4 mg 11/27/18 21:31 Zofran IV 12/27/18 21:30 Q4H PRN Nausea And Vomiting Ranolazine 500 mg 12/07/18 09:00 12/08/18 08:22 Ranexa PO 01/06/19 08:59 500 mg BID JANEL Administration Vitamin B Complex/Folic Acid 1 cap 11/28/18 09:00 12/08/18 08:20 Nephrocaps PO 12/28/18 08:59 1 cap QAM JANEL Administration Zolpidem Tartrate 5 mg 12/07/18 21:57 Ambien PO 01/06/19 21:56 HS PRN Sleep
[2018-12-08] MEDS: AMIODARONE 200 MG TAB PO SCH (11:08)
--- NOTE | 2018-12-08 11:29 | Nephrology Progress Note ---
Date of Service December 08, 2018 Assessment & Plan (1) ESRD (end stage renal disease) on dialysis: ESRD secondary to cardiorenal syndrome on HD TTS. Admitted with lower extremity cellulitis, culture +Klebsiella, blood culture negative. Current Rx Omnicef. Medical history is also notable for ischemic cardiomyopathy with EF 20- 25% status post AICD. -- HD TTS schedule -- Completed treatment yesterday -- Concerns about risks of continued dialysis given underlying cardiac disease expressed to family today -- Encourage family meeting with palliative care to review prognosis and overall goals of care -- Prognosis guarded -- Remains on diuretics to encourage urine output -- Volume status and BP acceptable -- Medications are appropriately dosed for IHD (including Eliquis) (2) Cellulitis: -- Omnicef (3) Systolic heart failure: -- Cardiology consult appreciated Subjective Mr. Davidson was seen and evaluated in his hospital room this morning. Unfortunately, his condition continues to decline. He continues to experience chest pain. His breathing remains labored. Cardiology consultation was reviewed. I spoke to the patient's at the bedside. Her primary concern was that Maximus is taking a thyroid supplement and she was not aware of any thyroid problems. I also spoke by phone with the patient's daughter and granddaughter. We discussed the advanced and complex condition of his heart and kidney disease. I explained concerns that we have not communicated the patient' s overall condition well and encouraged a family meeting with palliative care involvement. The family was in agreement. I discussed the plan of care with Dr. Harrell this morning. Review of Systems Other limited due to patient not answering questions well. He currently denies pain but his notes that chest and back pain persist. The patient acknowledges some persistent dyspnea with minimal activity. Physical Exam 2 Vital Signs (Past 24 Hours): Last Vital Signs Temp 36.7 C 12/08/18 07:33 Pulse 70 12/08/18 11:07 Resp 20 12/08/18 07:33 BP 106/71 12/08/18 11:07 Pulse Ox 100 12/08/18 11:07 Constitutional: + physical limitations and + frail appearing; no acute distress Eyes: + anicteric sclerae; no conjunctival abnormality ENMT: Mouth: + dry oral mucous membranes Neck: normal visual inspection and trachea midline Respiratory: Auscultation: lungs clear to auscultation bilaterally Cardiovascular: Heart Sounds: normal S1 and normal S2; no gallop and no cardiac rub Extremities: + edema Gastrointestinal (Abdomen): Percussion/Palpation: abdomen soft; abdomen nontender Musculoskeletal: Extremities: no cyanosis Ankle: + skin erythema Skin: + ulcer; no rashes Neurologic: Motor/Sensory: no tremor and no asterixis Results & Data Laboratory Results Laboratory Results - last 24 hr 12/07/18 12/07/18 12/07/18 13:53 16:26 16:44 POC Glucose 86 155 H NT-Pro-B Natriuret Pep Hep Bs Antigen Neg Hep Bs Antibody Non-Immune Hep Bs Antibody, Quant < 3.10 L 12/07/18 12/08/18 12/08/18 20:24 06:29 07:57 POC Glucose 180 H 148 H NT-Pro-B Natriuret Pep 6942 H Hep Bs Antigen Hep Bs Antibody Hep Bs Antibody, Quant _ (1) Cellulitis Laterality: right Site of cellulitis: extremity Site of cellulitis of extremity: lower extremity Site of cellulitis of trunk: Qualified Code(s): L03.115 - Cellulitis of right lower limb
[2018-12-08] MEDS: IPRATROPIUM BROMIDE/ALBUTEROL respimat INH INH PRN (17:45)
[2018-12-08] MEDS: ATORVASTATIN 40 MG TAB PO SCH (20:02)
[2018-12-08] MEDS: INSULIN GLARGINE SOLOSTAR 100 UNITS/ML 3 ML PEN SQ SCH (20:04)
[2018-12-08] MEDS: ALBUT/IPRATROP 3MG/0.5MG NEB 3 ML VIAL NEB PRN (21:30)
--- NOTE | 2018-12-08 23:58 | Hospitalist Progress Note ---
Date of Service December 08, 2018 Assessment & Plan (1) Chest pain: Patient had episode of chest pain at rest on 12/04 and 12/06. 12/07, 12/08; troponin was not worse and EKG was negative relieved with nitro has long standing history of chronic angina due to ischemic heart disease Ranolazine was again started due to repeat chest pain. This was increased in dose on 12/08 Discussed with cardiology. (2) Septic shock: shock resolved for several days, BP maintained off of pressors wound culture grew Klebsiella but both sets of blood cultures negative taper antibiotics to Rocephin and continue WBC normal for days, no fever cellulitis improving very slowly, wound care following right leg still hot and tender after almost a week of treatment ID recommends continuing IV antibiotics or can switch to PO. Patient is now refusing IV antibiotics. silver dressings being applied should involve wound clinic on discharge (3) Cellulitis: skin continues to improve, minimal redness today right leg feels more warm and more tender, open area continues to weap still with venous stasis ulcer, wound care following Rocephin, day 10 total of antibiotics today will switch to PO antibiotics. left arm with US guided peripheral (4) Elevated troponin: earlier in admission troponin peaked at 0.2 no new wall motion abnormalities likely demand ischemia in setting of hypotension, septic shock repeated troponin was not higher than previous trop. (5) CAD (coronary artery disease), ewiiaapaayp coronary artery: - Cont aspirin 81 mg, amiodarone 200 mg, Coreg 6.25 mg PO BID Patient having signs of chronic angina (6) HLD (hyperlipidemia): Switched to atorvastatin 40 mg daily (7) Ischemic cardiomyopathy: continue Bumex slight volume overload but overall improved utilizing HD for fluid removal continue Coreg (8) Pulmonary hypertension: - Stable (9) Mitral regurgitation: - Stable (10) GERD (gastroesophageal reflux disease): (11) Aortic stenosis: (12) Chronic combined systolic and diastolic CHF (congestive heart failure): - EF is 20-25% on echo slightly overloaded on exam overload due to renal dysfunction (13) Diabetes: - ISS with accuchecks, achs - Continue Lantus 35 U HS. monitor for hypoglycemia, no recent episodes (14) Atrial fibrillation: - Continue on eliquis 2.5 mg BID continue Coreg and Amiodarone (15) Hypothyroidism: - Cont levothyroxine 75 mcg daily (16) CKD (chronic kidney disease): - Stage IV, on HD T-Th-Sat: HD scheduled for tomorrow. (17) DVT prophylaxis: -teds, scds, continue eliquis Plan: palliative consult on 11/29, POLST completed, DNR now patient and family would like patient to recover and go to rehab participating in PT/OT WILL HAVE PALLAITIVE MEETING TOMORROW. Patient does not appear to be improving. Patient has severe ischemic cardiomyopathy with EF 20-25% With ESRD on HD. Patient does not appear to be improving, and his quality of life is poor. Family is considering hospice. Spent 45 minutes in management of patient, Subjective Patient was seen with family at bedside. Family meeting was held with myself. Patient appears that he is considering stopping hemodialysis. Patient reports he does not like how he feels. His suggests perhaps decreasing duration of dialysis from 4 hours to 3 hours. Explained to family that we should follow the wishes of the patient, but we can think it over tonight nd continue thi converstaion with the meeting with myself palliative and nephro. Family is also interteed in perhaps transfering patient to home hopsice. But they have questions such as "will wound care come see him if hes in hospice? " Patient continues to require 2 liters nasal cannula. Patient continues to have intermittent chest pain that responds to nitro. Patient's family also wants to discontinue the ambien.. Constitutional: + weakness Respiratory: + dyspnea and + dyspnea on exertion; no cough Cardiovascular: + dyspnea, + dyspnea on exertion and + edema Musculoskeletal: + back pain (chronic, lower) and + swelling; no joint pain and no muscle weakness Integumentary: + rash (bilateral legs, right worse than the left) and + skin ulcer (right lower leg, stasis ulcer that opened) Physical Exam 2 Vital Signs (Past 24 Hours): Last Vital Signs Temp 36.4 C L 12/08/18 19:25 Pulse 64 12/08/18 21:32 Resp 20 12/08/18 21:32 BP 89/64 L 12/08/18 21:13 Pulse Ox 94 12/08/18 21:32 Physical Exam: Constitutional: WD/WN, vitals as above Eyes: PERRL, conjunctivae normal, anicteric sclerae ENMT: external ear and nose normal, oropharynx normal Neck: trachea midline, no thyromegaly Respiratory: normal respiratory effort, lungs clear to auscultation no cough Cardiovascular: Rate/Rhythm: regular rate and regular rhythm Vessels: normal peripheral pulses Extremities: + pedal edema Gastrointestinal (Abdomen): normal bowel sounds, soft, nontender, no hepatosplenomegaly Musculoskeletal: no cyanosis or clubbing, extremities motor strength 5/5 Skin: + rash (bilateral venous stasis ulcers, significantly decreased erythema noted on the right lower leg, decreased warmth and tenderness) Neurologic: patellar DTR's 2+ bilat, sensation intact and PERRL, EOMI, accommodation nl, no face palsy, no dysarthria Psychiatric: A+Ox3, euthymic affect Lymphatic: no cervical or axillary lymphadenopathy _ (1) Atrial fibrillation Atrial fibrillation type: permanent Qualified Code(s): I48.2 - Chronic atrial fibrillation (2) Mitral regurgitation Cardiac valve disease etiology: etiology unspecified Qualified Code(s): I34.0 - Nonrheumatic mitral (valve) insufficiency (3) CKD (chronic kidney disease) Chronic kidney disease stage: stage 4 (severe) Qualified Code(s): N18.4 - Chronic kidney disease, stage 4 (severe)
[2018-12-09] MEDS: ACETAMINOPHEN 325 MG TAB PO PRN (03:19)
[2018-12-09] MEDS: LEVOTHYROXINE SODIUM 75 MCG TABLET PO SCH (05:13)
[2018-12-09] MEDS: IPRATROPIUM BROMIDE/ALBUTEROL respimat INH INH PRN ×2 (07:25→21:50)
[2018-12-09] MEDS ORDERED: SODIUM CHLORIDE 0.9% 1000ML 1,000 ML IV PRN (08:24)
[2018-12-09] MEDS: INSULIN ASPART 100 UNITS/ML 3 ML PEN SC SCH ×4 (08:50→21:17)
--- NOTE | 2018-12-09 09:10 | Cardiology Progress Note ---
Date of Service December 09, 2018 Assessment & Plan (1) Chest pain: His chest pain has resolved since increasing his Ranexa. Recommend continuing Ranexa 1000 mg BID and Coreg 6.25 mg BID. If chest pain recurs, could consider initiating Imdur 15 mg daily, if BP allows. (2) Coronary artery disease: Continue current therapy including atorvastatin 40 mg daily, aspirin 81 mg daily, and Coreg 6.25 mg bid. (3) Atrial fibrillation: His atrial fibrillation is permanent. Continue Eliquis 2.5 mg BID for thromboembolic prophylaxis. He is on Amiodarone therapy for history of ventricular tachycardia. (4) Ischemic cardiomyopathy: Continue Coreg 6.25 mg BID. His blood pressure has not allowed further titration of the medication. Subjective The patient reports today that he feels as if he "has no power" and he feels rather weak. He is scheduled for hemodialysis later this morning. He has fortunately not experienced any recurrent chest discomfort since his Ranexa dose was increased to 1000 mg BID yesterday. He states that he was feeling short of breath this morning, but his breathing improved with the use of his inhalers. He is otherwise asymptomatic. Physical Exam 2 Vital Signs (Past 24 Hours): Last Vital Signs Temp 36.2 C L 12/09/18 07:22 Pulse 85 12/09/18 07:22 Resp 20 12/09/18 07:22 BP 94/66 L 12/09/18 08:44 Pulse Ox 100 12/09/18 07:22 Constitutional: Alert, oriented, in no acute distress HEENT: Head is atraumatic and normocephalic. EOMs intact. Sclera anicteric. Face is symmetric. No perioral cyanosis. Mucous membranes moist. Neck: Supple, unable to assess JVP as patient is currently lying down on his side Pulmonary: Normal respiratory effort, clear to auscultation bilaterally Cardiac: Regular rate and rhythm, normal S1 and S2, no gallops, no rubs, no murmurs Extremities: 1+ lower extremity edema bilaterally. No clubbing or cyanosis. Pulses intact Abdomen: Normal bowel sounds, soft, non-tender, no abdominal mass palpated Skin: Bilateral venous stasis ulcers are dressed Neurological: Oriented to person, place, and time _ (1) Atrial fibrillation Atrial fibrillation type: permanent Qualified Code(s): I48.2 - Chronic atrial fibrillation
[2018-12-09] MEDS: BUMETANIDE 1 MG TAB PO SCH ×2 (11:02→21:14)
[2018-12-09] MEDS: CALCITRIOL 0.25 MCG CAPSULE PO SCH (11:02)
[2018-12-09] MEDS: ALLOPURINOL 100 MG TAB PO SCH ×2 (11:03→21:16)
[2018-12-09] MEDS: CARVEDILOL 6.25 MG TAB PO SCH ×2 (11:03→17:13)
[2018-12-09] MEDS: AMIODARONE 200 MG TAB PO SCH (11:03)
[2018-12-09] MEDS: DOCUSATE SODIUM 100 MG CAP PO SCH ×2 (11:03→21:16)
[2018-12-09] MEDS: NEPHROCAPS PO SCH (11:03)
[2018-12-09] MEDS: RANOLAZINE 500 MG ER TAB PO SCH ×2 (11:04→21:13)
[2018-12-09] MEDS: ASPIRIN 81 MG ECTAB PO SCH (11:04)
[2018-12-09] MEDS: CALCIUM CARBONATE 500 MG CHEWABLE TAB PO SCH ×3 (11:04→17:14)
[2018-12-09] MEDS: APIXABAN 2.5 MG TAB PO SCH ×2 (11:04→21:14)
[2018-12-09] MEDS: FLUOCINONIDE 0.05% CR 15 GM TUBE EXT SCH (11:05)
[2018-12-09] MEDS: ALBUT/IPRATROP 3MG/0.5MG NEB 3 ML VIAL NEB PRN (12:39)
--- NOTE | 2018-12-09 13:14 | Nephrology Progress Note ---
Date of Service December 09, 2018 Assessment & Plan (1) ESRD (end stage renal disease) on dialysis: ESRD secondary to cardiorenal syndrome on HD TTS. Admitted with lower extremity cellulitis, culture +Klebsiella, blood culture negative. Current Rx Omnicef. Medical history is also notable for ischemic cardiomyopathy with EF 20- 25% status post AICD. -- Patient was not tolerating HD well this morning and treatment was abridged -- Plan to stop dialysis based on patient's and family's wishes -- Prognosis guarded; goals of care transitioning to comfort measures -- Remains on diuretics to encourage urine output -- Medications are appropriately dosed for IHD (including Eliquis) 60 minutes provided to patient today during dialysis and family meeting. (2) Cellulitis: -- Omnicef (3) Systolic heart failure: -- Cardiology consult appreciated Subjective Mr. Davidson was seen and evaluated during hemodialysis this morning. He continues to struggle with dialysis treatment. The patient expressed chest and back pain. He denies dyspnea. His activity tolerance is very poor. His functional status is limited. A family meeting with Dr. Harrell and palliative care was had with the family. I spoke with the family and care members in detail during this meeting. The patient and family have expressed a desire to transition to a palliative care model of treatment. They would like to transition away from hemodialysis. Review of Systems All systems reviewed & are unremarkable except as noted in HPI & below Physical Exam 2 Vital Signs (Past 24 Hours): Last Vital Signs Temp 36.5 C 12/09/18 08:44 Pulse 81 12/09/18 12:42 Resp 28 H 12/09/18 12:42 BP 118/77 12/09/18 11:04 Pulse Ox 97 12/09/18 12:42 Constitutional: + physical limitations and + frail appearing; no acute distress Eyes: + anicteric sclerae; no conjunctival abnormality ENMT: Mouth: + dry oral mucous membranes Neck: normal visual inspection and trachea midline Respiratory: no respiratory distress Auscultation: lungs clear to auscultation bilaterally Cardiovascular: Heart Sounds: normal S1 and normal S2; no gallop and no cardiac rub Extremities: + edema Gastrointestinal (Abdomen): Percussion/Palpation: abdomen soft; abdomen nontender Musculoskeletal: Extremities: no cyanosis Ankle: + skin erythema Skin: + ulcer; no rashes Neurologic: Motor/Sensory: no tremor and no asterixis Results & Data Laboratory Results Laboratory Results - last 24 hr 12/08/18 12/08/18 12/09/18 17:03 19:56 07:35 POC Glucose 186 H 164 H 145 H 12/09/18 11:21 POC Glucose 177 H _ (1) Cellulitis Laterality: right Site of cellulitis: extremity Site of cellulitis of extremity: lower extremity Site of cellulitis of trunk: Qualified Code(s): L03.115 - Cellulitis of right lower limb
--- NOTE | 2018-12-09 13:37 | Palliative Care Progress Note ---
Date of Service December 09, 2018 Assessment & Plan (1) Goals of care, counseling/discussion: -78 year old male with complicated case and PMH cardiomyopathy with EF 20- 25% and end-stage renal disease on dialysis. Has been here for 12 days now with BLE cellulitis, cultures growing Klebsiella, and continued decline/ deconditioning. Patient has now been experiencing chest pain and feelings of unwellness during dialysis treatments due to his end-stage cardiac condition. Palliative care has been asked to reevaluate patient and have family meeting. -met with tatianna's family: , daughter Ofe, granddaughter Latonya, and patient's son. Dr. Easton, myself and Dr. Harrell present. I offered to use translation services, but family declined and stated that Latonya and patient's son could translate. We discussed his medical condition in detail as well as patient's goals of care. Patient's family understanding of the fact that patient is unable to tolerate dialysis and is asking to stop during his treatments. Family does not want patient to suffer and knows that he would not want to continue on with such a poor quality of life. -We talked about stopping dialysis and transitioning to comfort measures only, and eventually taking patient home on hospice. This is what the family would like to do. -Previously when I met patient, we filled out a POLST form as follows: DNR, full treatment with additional order "avoid ventilator. Trial of full treatment unless little hope of meaningful recovery, at which time make me comfortable," abx if life can be prolonged, and trial period of artificial fluid/nutrition. At that time, patient made it clear to me and his family that if he was not improving, he did not want to continue dialysis or other life-prolonging measures. -Today, patient was very tired after returning from dialysis. He has no pain, but is fatigued and not feeling well at all. Family requested some time to discuss plan amongst themselves. Dr. Easton will return to see them this afternoon and I will meet with them again tomorrow to confirm plan. (2) ESRD (end stage renal disease) on dialysis: (3) Cellulitis: (4) Sepsis: (5) CHF exacerbation: Subjective Patient has now been experiencing chest pain and feelings of unwellness during dialysis treatments due to his end-stage cardiac condition. Palliative care has been asked to reevaluate patient and have family meeting. Constitutional: + fatigue and + weakness Respiratory: + cough and + dyspnea on exertion Cardiovascular: + chest pain and + edema Gastrointestinal: no abdominal pain, no nausea and no vomiting Psychiatric: + anxiety Physical Exam 2 Vital Signs (Past 24 Hours): Last Vital Signs Temp 36.5 C 12/09/18 08:44 Pulse 81 12/09/18 12:42 Resp 28 H 12/09/18 12:42 BP 118/77 12/09/18 11:04 Pulse Ox 97 12/09/18 12:42 Constitutional: no acute distress Eyes: PERRL ENMT: Ears: + hearing impairment (right ear hard of hearing) Neck: normal visual inspection and trachea midline Respiratory: normal respiratory effort; no respiratory distress and no labored breathing Auscultation: lungs clear to auscultation bilaterally Cardiovascular: Rate/Rhythm: regular rate and regular rhythm Vessels: no JVD Extremities: + edema (BLE +3-4 edema but are covered with dressings) Gastrointestinal (Abdomen): Inspection/Auscultation: abdomen normal to inspection and normal bowel sounds Percussion/Palpation: abdomen soft; abdomen nontender Neurologic: awake; not confused Psychiatric: Orientation: alert and oriented x 3 Insight: + limited insight (especially due to language barrier) Time Spent Midlevel 70 minutes with >50% of time spent at bedside with patient, family, and physicians to discuss condition and GOC. _ (1) Cellulitis Laterality: right Site of cellulitis: extremity Site of cellulitis of extremity: lower extremity Site of cellulitis of trunk: Qualified Code(s): L03.115 - Cellulitis of right lower limb (2) Sepsis Sepsis type: sepsis due to unspecified organism Qualified Code(s): A41.9 - Sepsis, unspecified organism (3) CHF exacerbation Heart failure type: systolic Qualified Code(s): I50.23 - Acute on chronic systolic (congestive) heart failure
[2018-12-09] MEDS: MoRPHine SULFATE 5 MG/0.25 ML UDP PO PRN ×2 (14:16→21:56)
[2018-12-09] MEDS: MAGNESIUM HYDROXIDE SUSP 30 ML UDC PO PRN (17:12)
[2018-12-09] MEDS: CEFDINIR 300 MG CAP PO SCH (17:12)
[2018-12-09] MEDS: ATORVASTATIN 40 MG TAB PO SCH (21:15)
[2018-12-09] MEDS: INSULIN GLARGINE SOLOSTAR 100 UNITS/ML 3 ML PEN SQ SCH (21:19)
--- NOTE | 2018-12-09 23:05 | Hospitalist Progress Note ---
Date of Service December 09, 2018 Assessment & Plan (1) Chest pain: Patient had episode of chest pain at rest on 12/04 and 12/06. 12/07, 12/08; troponin was not worse and EKG was negative relieved with nitro has long standing history of chronic angina due to ischemic heart disease Ranolazine was again started due to repeat chest pain. This was increased in dose on 12/08 Discussed with cardiology. (2) Septic shock: shock resolved for several days, BP maintained off of pressors wound culture grew Klebsiella but both sets of blood cultures negative taper antibiotics to Rocephin and continue WBC normal for days, no fever cellulitis improving very slowly, wound care following Will continue on PO antibioitcs. Leg looks much improved today. silver dressings being applied should involve wound clinic on discharge (3) Cellulitis: skin continues to improve, minimal redness today right leg feels more warm and more tender, open area continues to weap still with venous stasis ulcer, wound care following Patient is tolerating PO antibiotics. Will continue for at least another week. (4) Elevated troponin: earlier in admission troponin peaked at 0.2 no new wall motion abnormalities likely demand ischemia in setting of hypotension, septic shock repeated troponin was not higher than previous trop. (5) CAD (coronary artery disease), pauma coronary artery: - Cont aspirin 81 mg, amiodarone 200 mg, Coreg 6.25 mg PO BID Patient having signs of chronic angina (6) HLD (hyperlipidemia): Switched to atorvastatin 40 mg daily (7) Ischemic cardiomyopathy: continue Bumex slight volume overload but overall improved utilizing HD for fluid removal continue Coreg (8) Pulmonary hypertension: - Stable (9) Mitral regurgitation: - Stable (10) GERD (gastroesophageal reflux disease): (11) Aortic stenosis: (12) Chronic combined systolic and diastolic CHF (congestive heart failure): - EF is 20-25% on echo slightly overloaded on exam overload due to renal dysfunction (13) Diabetes: - ISS with accuchecks, achs - Continue Lantus 35 U HS. monitor for hypoglycemia, no recent episodes (14) Atrial fibrillation: - Continue on eliquis 2.5 mg BID continue Coreg and Amiodarone (15) Hypothyroidism: - Cont levothyroxine 75 mcg daily (16) CKD (chronic kidney disease): - Stage IV, on HD T-Th-Sat: This will likely be stopped.'Patient did not handle a fiull dialysis session, (17) DVT prophylaxis: -teds, scds, continue eliquis Plan: palliative consult on 11/29, POLST completed, DNR now patient and family would like patient to recover and go to rehab participating in PT/OT Patient not tolerating dialysis. This will likely be stopped and patient will be transitioned to hospice. Family will discuss with patient. Family strongly considering hospice Spent 55 minutes in management of patient, Subjective Family meeting held; family is leaning towards stopping dialysis. This was disussed at length. Dr. Easton stated that patient is no longer tolerating dialysis. Family will talk it over with patient. Patient reports no new complaints. Constitutional: + weakness Respiratory: + dyspnea and + dyspnea on exertion; no cough Cardiovascular: + dyspnea, + dyspnea on exertion and + edema Musculoskeletal: + back pain (chronic, lower) and + swelling; no joint pain and no muscle weakness Integumentary: + rash (bilateral legs, right worse than the left) and + skin ulcer (right lower leg, stasis ulcer that opened) Physical Exam 2 Vital Signs (Past 24 Hours): Last Vital Signs Temp 36.4 C L 12/09/18 15:02 Pulse 70 12/09/18 21:11 Resp 20 12/09/18 19:49 BP 93/69 L 12/09/18 21:11 Pulse Ox 100 12/09/18 21:52 Physical Exam: Constitutional: WD/WN, vitals as above Eyes: PERRL, conjunctivae normal, anicteric sclerae ENMT: external ear and nose normal, oropharynx normal Neck: trachea midline, no thyromegaly Respiratory: normal respiratory effort, lungs clear to auscultation no cough Cardiovascular: Rate/Rhythm: regular rate and regular rhythm Vessels: normal peripheral pulses Extremities: + pedal edema Gastrointestinal (Abdomen): normal bowel sounds, soft, nontender, no hepatosplenomegaly Musculoskeletal: no cyanosis or clubbing, extremities motor strength 5/5 Skin: + rash (bilateral venous stasis ulcers, significantly decreased erythema noted on the right lower leg, decreased warmth and tenderness) Neurologic: patellar DTR's 2+ bilat, sensation intact and PERRL, EOMI, accommodation nl, no face palsy, no dysarthria Psychiatric: A+Ox3, euthymic affect Lymphatic: no cervical or axillary lymphadenopathy _ (1) Atrial fibrillation Atrial fibrillation type: permanent Qualified Code(s): I48.2 - Chronic atrial fibrillation (2) Mitral regurgitation Cardiac valve disease etiology: etiology unspecified Qualified Code(s): I34.0 - Nonrheumatic mitral (valve) insufficiency (3) CKD (chronic kidney disease) Chronic kidney disease stage: stage 4 (severe) Qualified Code(s): N18.4 - Chronic kidney disease, stage 4 (severe)
[2018-12-10] MEDS: LEVOTHYROXINE SODIUM 75 MCG TABLET PO SCH (07:18)
[2018-12-10] MEDS: CARBOHYDRATES FOR HYPOGLYCEMIA PO PRN ×2 (07:48→08:15)
[2018-12-10] MEDS: APIXABAN 2.5 MG TAB PO SCH ×2 (08:18→22:14)
[2018-12-10] MEDS: CALCIUM CARBONATE 500 MG CHEWABLE TAB PO SCH ×3 (08:18→16:26)
[2018-12-10] MEDS: INSULIN ASPART 100 UNITS/ML 3 ML PEN SC SCH ×4 (08:21→22:09)
[2018-12-10] MEDS: RANOLAZINE 500 MG ER TAB PO SCH ×2 (08:22→22:15)
[2018-12-10] MEDS: NEPHROCAPS PO SCH (08:22)
[2018-12-10] MEDS: DOCUSATE SODIUM 100 MG CAP PO SCH ×2 (08:22→22:13)
[2018-12-10] MEDS: ALLOPURINOL 100 MG TAB PO SCH ×2 (08:23→22:15)
[2018-12-10] MEDS: CARVEDILOL 6.25 MG TAB PO SCH ×2 (08:23→16:21)
[2018-12-10] MEDS: BUMETANIDE 1 MG TAB PO SCH ×2 (08:23→22:23)
[2018-12-10] MEDS: ASPIRIN 81 MG ECTAB PO SCH (08:23)
[2018-12-10] MEDS: FLUOCINONIDE 0.05% CR 15 GM TUBE EXT SCH (08:24)
--- NOTE | 2018-12-10 09:58 | Nephrology Progress Note ---
Date of Service December 10, 2018 Assessment & Plan (1) ESRD (end stage renal disease) on dialysis: ESRD secondary to cardiorenal syndrome on HD TTS. Admitted with lower extremity cellulitis, culture +Klebsiella, blood culture negative. Current Rx Omnicef. Medical history is also notable for ischemic cardiomyopathy with EF 20- 25% status post AICD. -- Patient has opted to forgo hemodialysis -- Appropriate palliative care is being provided -- The patient and are content with current treatment (2) Cellulitis: -- Omnicef (3) Systolic heart failure: -- Cardiology consult appreciated Subjective Mr. Davidson was seen and evaluated in his hospital room with his at the bedside. CARLOS Luz was present at that time. Mr. Davidson is resting comfortably. He is lethargic but opens his eyes and responds to voice and questions. Review of Systems All systems reviewed & are unremarkable except as noted in HPI & below Physical Exam 2 Vital Signs (Past 24 Hours): Last Vital Signs Temp 36.8 C 12/10/18 07:24 Pulse 70 12/10/18 07:24 Resp 20 12/10/18 07:24 BP 144/79 H 12/10/18 07:24 Pulse Ox 96 12/10/18 07:24 Constitutional: + physical limitations and + frail appearing; no acute distress Eyes: + anicteric sclerae; no conjunctival abnormality ENMT: Mouth: + dry oral mucous membranes Neck: normal visual inspection and trachea midline Respiratory: no respiratory distress Auscultation: lungs clear to auscultation bilaterally Cardiovascular: Heart Sounds: normal S1 and normal S2; no gallop and no cardiac rub Extremities: + edema Gastrointestinal (Abdomen): Percussion/Palpation: abdomen soft; abdomen nontender Musculoskeletal: Extremities: no cyanosis Ankle: + skin erythema Skin: + ulcer; no rashes Neurologic: Motor/Sensory: no tremor and no asterixis Results & Data Laboratory Results Laboratory Results - last 24 hr 12/09/18 12/09/18 12/09/18 11:21 16:35 20:13 POC Glucose 177 H 125 H 232 H 12/10/18 12/10/18 12/10/18 07:40 08:05 08:07 POC Glucose 55 L* 52 L* 70 12/10/18 12/10/18 12/10/18 08:08 08:35 08:37 POC Glucose 53 L* 66 L* 77 _ (1) Cellulitis Laterality: right Site of cellulitis: extremity Site of cellulitis of extremity: lower extremity Site of cellulitis of trunk: Qualified Code(s): L03.115 - Cellulitis of right lower limb
[2018-12-10] MEDS: MoRPHine SULFATE 5 MG/0.25 ML UDP PO PRN (11:56)
[2018-12-10] MEDS ORDERED: LORazepam 0.5 MG/1 ML VIAL IV PRN (13:17)
--- NOTE | 2018-12-10 13:17 | Palliative Care Progress Note ---
Date of Service December 10, 2018 Assessment & Plan (1) Goals of care, counseling/discussion: -Patient has already had major decline from yesterday to today. - was at patient's bedside during my visit. Dr. Easton also present during part of my visit. -Patient is more weak and confused. He could not understand translation. His stated that he was confused over night, had difficulty getting out of bed. Instructed patient and that he will no longer be able to get out of bed for safety reasons. He is too weak to go to bathroom. Offered urinal or urinary catheter for comfort. -Would recommend transitioning to comfort measures only at this point. Patient is declining rapidly, he may not be stable for transfer out of hospital. -Roxanol is ordered. -Will also add lorazepam 0.5mg IV Q6h PRN anxiety/agitation. (2) ESRD (end stage renal disease) on dialysis: (3) Cellulitis: (4) Sepsis: (5) CHF exacerbation: Subjective Patient had a difficult night due to weakness, confusion, and restlessness. His and Dr. easton were present during my visit. Patient having periods of apnea while sleeping. He looks worse than yesterday. Declining rapidly which I did talk with the patient and his about. Review of Systems Unobtainable due to cognitive status Physical Exam 2 Vital Signs (Past 24 Hours): Last Vital Signs Temp 36.4 C L 12/10/18 11:33 Pulse 75 12/10/18 11:33 Resp 20 12/10/18 11:33 BP 144/79 H 12/10/18 07:24 Pulse Ox 98 12/10/18 11:33 Constitutional: + ill appearing and + disheveled; + uncomfortable Eyes: PERRL ENMT: Ears: + hearing impairment (right ear hard of hearing) Neck: normal visual inspection and trachea midline Respiratory: no respiratory distress and no labored breathing Auscultation : lungs clear to auscultation bilaterally Cardiovascular: Rate/Rhythm: regular rate and regular rhythm Vessels: no JVD Gastrointestinal (Abdomen): Inspection/Auscultation: + abdomen distended ( obesely distended) and normal bowel sounds Percussion/Palpation: abdomen soft ; abdomen nontender Skin: + mottling (fingers on both hands) Neurologic: + confused Psychiatric: Orientation: + not alert (drowsy/lethargic) and + not oriented x 3 Time Spent Midlevel 65 minutes with >50% of time spent at bedside with patient and his discussing condition, GOC, and EOL issues. _ (1) Cellulitis Laterality: right Site of cellulitis: extremity Site of cellulitis of extremity: lower extremity Site of cellulitis of trunk: Qualified Code(s): L03.115 - Cellulitis of right lower limb (2) Sepsis Sepsis type: sepsis due to unspecified organism Qualified Code(s): A41.9 - Sepsis, unspecified organism (3) CHF exacerbation Heart failure type: systolic Qualified Code(s): I50.23 - Acute on chronic systolic (congestive) heart failure
[2018-12-10] MEDS: AMIODARONE 200 MG TAB PO SCH (16:19)
[2018-12-10] MEDS: CALCITRIOL 0.25 MCG CAPSULE PO SCH (16:19)
[2018-12-10] MEDS: HYDROCODONE/ACETAMOPHEN 5/325MG TAB PO PRN (16:24)
--- NOTE | 2018-12-10 16:53 | Pharmacy Report ---
Pharmacy Glycemic Short Note 2 - Date of Service December 10, 2018 - Glycemic Short BSG Results (Last 24 hours): 12/09/18 12/09/18 12/10/18 16:35 20:13 07:40 POC Glucose 125 H 232 H 55 L* 12/10/18 12/10/18 12/10/18 08:05 08:07 08:08 POC Glucose 52 L* 70 53 L* 12/10/18 12/10/18 12/10/18 08:35 08:37 11:58 POC Glucose 66 L* 77 97 OUTPATIENT ANTIDIABETIC REGIMEN: * Basaglar 35 units SQ HS * Novolog SQ ACHS per scale 1 unit w/ each meal + correctional insulin ( 1 unit per 25mg/dL above 150) * A1c = 6.8% 11/06/18 ASSESSMENT: * Mr. Davidson received 43 units of insulin over the past 24 hours (26 units of basal/17 units of bolus) * Patient had a low fasting today (55 mg/dL). He was given juice x 2. Unknown reason for AM hypoglycemia. He has received 23-26 units of basal insulin for the past 6 days with fasting BSG at goal. Hypoglycemia may be due to overall decline in status? I will back off basal insulin significantly. PLAN FOR INPATIENT GLYCEMIC CONTROL: * Basal insulin - decrease * Lantus per scale SQ qHS * BSG less than 160: give 15 units * BSG 160 or more: give 20 units * Bolus insulin * NovoLog per scale ACHS or Q6hrs while NPO * Goal Range: Low 120 mg/dL - High 160 mg/dL * Correction Factor: 25 mg/dL/unit * Nutritional / Prandial insulin per carb ratio of 1 unit per 10 grams CHO consumed PLAN FOR DISCHARGE: * Update 12/10/18: if clinical condition continues to decline, discharge recs may be inappropriate * Although A1c close to goal, elementary educator did meet w/ patient and his . It appears that continuing the home Basaglar dose of 35 units daily would be appropriate. His Novolog dose with meals may need adjusted upwards based upon SMBG values post-prandially. I would estimate he would need at a minimum 4 units Novolog with each meal with this dose being titrated upwards by outpt provider. Lining Ironer also provided patient with a written scale for correctional insulin.
[2018-12-10] MEDS: INSULIN GLARGINE SOLOSTAR 100 UNITS/ML 3 ML PEN SQ SCH (22:08)
[2018-12-10] MEDS: ATORVASTATIN 40 MG TAB PO SCH (22:14)
[2018-12-11] MEDS: MoRPHine SULFATE 5 MG/0.25 ML UDP PO PRN ×2 (05:33→09:05)
[2018-12-11] MEDS: LEVOTHYROXINE SODIUM 75 MCG TABLET PO SCH (08:22)
[2018-12-11] MEDS: RANOLAZINE 500 MG ER TAB PO SCH (08:23)
[2018-12-11] MEDS: ASPIRIN 81 MG ECTAB PO SCH (08:23)
[2018-12-11] MEDS: APIXABAN 2.5 MG TAB PO SCH (08:23)
[2018-12-11] MEDS: NEPHROCAPS PO SCH (08:23)
[2018-12-11] MEDS: DOCUSATE SODIUM 100 MG CAP PO SCH (08:24)
[2018-12-11] MEDS: ALLOPURINOL 100 MG TAB PO SCH (08:24)
[2018-12-11] MEDS: CALCIUM CARBONATE 500 MG CHEWABLE TAB PO SCH (08:25)
[2018-12-11] MEDS: FLUOCINONIDE 0.05% CR 15 GM TUBE EXT SCH (08:29)
[2018-12-11] MEDS: INSULIN ASPART 100 UNITS/ML 3 ML PEN SC SCH (08:32)
[2018-12-11] MEDS ORDERED: LORazepam 1 MG TAB SL STA (09:36)
[2018-12-11] MEDS ORDERED: LORazepam 1 MG TAB SL PRN (09:37)
[2018-12-11] MEDS: IPRATROPIUM BROMIDE/ALBUTEROL respimat INH INH PRN (10:15)
[2018-12-11] MEDS: ALBUT/IPRATROP 3MG/0.5MG NEB 3 ML VIAL NEB PRN (10:29)
[2018-12-11] MEDS ORDERED: ATROPINE SULFATE 1% OP SOLN 2 ML BTL PO PRN (10:36)
--- NOTE | 2018-12-11 10:40 | Hospitalist Progress Note ---
Date of Service December 10, 2018 Assessment & Plan (1) Chest pain: Patient had episode of chest pain at rest on 12/04 and 12/06. 12/07, 12/08; troponin was not worse and EKG was negative relieved with nitro has long standing history of chronic angina due to ischemic heart disease Ranolazine was again started due to repeat chest pain. This was increased in dose on 12/08 Discussed with cardiology. Patient is transitioning to comfort measures only. Will place patient on roxanole and monitor his response. I anticpate patient will likely not be able to be discharged home on hospice. (2) Septic shock: shock resolved for several days, BP maintained off of pressors wound culture grew Klebsiella but both sets of blood cultures negative taper antibiotics to Rocephin and continue WBC normal for days, no fever cellulitis improving very slowly, wound care following Will continue on PO antibioitcs. Leg looks much improved today. silver dressings being applied should involve wound clinic on discharge (3) Cellulitis: skin continues to improve, minimal redness today right leg feels more warm and more tender, open area continues to weap still with venous stasis ulcer, wound care following Patient is tolerating PO antibiotics. Will continue for at least another week. (4) Elevated troponin: earlier in admission troponin peaked at 0.2 no new wall motion abnormalities likely demand ischemia in setting of hypotension, septic shock repeated troponin was not higher than previous trop. (5) CAD (coronary artery disease), [place] coronary artery: - Cont aspirin 81 mg, amiodarone 200 mg, Coreg 6.25 mg PO BID Patient having signs of chronic angina (6) HLD (hyperlipidemia): Switched to atorvastatin 40 mg daily (7) Ischemic cardiomyopathy: continue Bumex slight volume overload but overall improved utilizing HD for fluid removal continue Coreg (8) Pulmonary hypertension: - Stable (9) Mitral regurgitation: - Stable (10) GERD (gastroesophageal reflux disease): (11) Aortic stenosis: (12) Chronic combined systolic and diastolic CHF (congestive heart failure): - EF is 20-25% on echo slightly overloaded on exam overload due to renal dysfunction (13) Diabetes: - ISS with accuchecks, achs - Continue Lantus 35 U HS. monitor for hypoglycemia, no recent episodes (14) Atrial fibrillation: - Continue on eliquis 2.5 mg BID continue Coreg and Amiodarone (15) Hypothyroidism: - Cont levothyroxine 75 mcg daily (16) CKD (chronic kidney disease): - Stage IV, on HD T-Th-Sat: Dialysis is stopped after family meeting was done. (17) DVT prophylaxis: -teds, scds, continue eliquis Patient not tolerating dialysis. This will likely be stopped and patient will be transitioned to hospice. Family in agreement that patient is placed on comfort measures. Will place on roxanole. Do not anticipate patient to be able to go home. Spent 35 minutes in room. Subjective Family is in agreement with hospice. Patient appears more decompensated today. And does not provide history. Constitutional: + weakness Respiratory: + dyspnea and + dyspnea on exertion; no cough Cardiovascular: + dyspnea, + dyspnea on exertion and + edema Musculoskeletal: + back pain (chronic, lower) and + swelling; no joint pain and no muscle weakness Integumentary: + rash (bilateral legs, right worse than the left) and + skin ulcer (right lower leg, stasis ulcer that opened) Physical Exam 2 Vital Signs (Past 24 Hours): Last Vital Signs Temp 37.0 C 12/10/18 19:55 Pulse 73 12/10/18 19:55 Resp 18 12/10/18 19:55 BP 89/65 L 12/10/18 19:55 Pulse Ox 98 12/10/18 19:55 Physical Exam: Constitutional: Patient appears lethargic, vitals as above Eyes: PERRL, conjunctivae normal, anicteric sclerae ENMT: external ear and nose normal, oropharynx normal Neck: trachea midline, no thyromegaly Respiratory: normal respiratory effort, coarse breath sounds. Cardiovascular: Rate/Rhythm: regular rate and regular rhythm Vessels: normal peripheral pulses Extremities: + pedal edema Gastrointestinal (Abdomen): normal bowel sounds, soft, nontender, no hepatosplenomegaly Musculoskeletal: no cyanosis or clubbing, extremities motor strength 5/5 Skin: + rash (bilateral venous stasis ulcers, significantly decreased erythema noted on the right lower leg, decreased warmth and tenderness) Neurologic: patellar DTR's 2+ bilat, sensation intact and PERRL, EOMI, accommodation nl, no face palsy, no dysarthria Psychiatric: Patient appears lethargic Lymphatic: no cervical or axillary lymphadenopathy _ (1) Mitral regurgitation Cardiac valve disease etiology: etiology unspecified Qualified Code(s): I34.0 - Nonrheumatic mitral (valve) insufficiency (2) Atrial fibrillation Atrial fibrillation type: permanent Qualified Code(s): I48.2 - Chronic atrial fibrillation (3) CKD (chronic kidney disease) Chronic kidney disease stage: stage 4 (severe) Qualified Code(s): N18.4 - Chronic kidney disease, stage 4 (severe)
[2018-12-11] MEDS ORDERED: SCOPOLAMINE 1.5 MG TDSY TD SCH (11:00)
--- NOTE | 2018-12-11 11:56 | Death Summary ---
Date of Service December 11, 2018 Pronouncement Note Date and Time of Date of : 12/11/18 Time of : 10:50 Contributing Factors (1) Chest pain: (2) Septic shock: (3) Cellulitis: (4) Elevated troponin: (5) CAD (coronary artery disease), [place] coronary artery: (6) HLD (hyperlipidemia): (7) Ischemic cardiomyopathy: (8) Pulmonary hypertension: (9) Mitral regurgitation: (10) GERD (gastroesophageal reflux disease): (11) Aortic stenosis: (12) Chronic combined systolic and diastolic CHF (congestive heart failure): (13) Diabetes: (14) Atrial fibrillation: (15) Hypothyroidism: (16) CKD (chronic kidney disease): (17) DVT prophylaxis: Summary Additional details: 78 yo male who had ESRD, ischemic cardiomyopathy and CAD, at approximately 11:50 in the presence of his . Patient's family as well as patient had refused hemodialysis the prior day. This was complicated by his ischemic cardiomyopathy with poor EF. An examination of the patient confirmed his passing. Additional Data Confirmation of : no pulse, no respirations, no heart sounds and pupils fixed and dilated Family: at bedside Attending/PCP notified?: No Attending physician: Jacques Harrell Was code activated?: No Autopsy requested?: No product examiner notified?: No Organ bank notified?: Yes Advance directives: Yes
[2018-12-11] MEDS: CARVEDILOL 6.25 MG TAB PO SCH (12:26)
[2018-12-11] MEDS: BUMETANIDE 1 MG TAB PO SCH (12:26)
[2018-12-11] MEDS: CALCITRIOL 0.25 MCG CAPSULE PO SCH (12:27)
[2018-12-11] MEDS ORDERED: CHECK SCOPOLAMINE PATCH PLACEMENT SCH (16:00)
== END 2018-12-11 14:26 | disposition expired | DRG 871 ==
LOC: ED 15:37 → 1E 18:55 → SUATTDRO 18:55 → 1E 20:41 → 4E 12-01 14:37
DX: Z79.82 Long term (current) use of aspirin; Z66 Do not resuscitate; M19.90 Unspecified osteoarthritis, unspecified site; S62.636B Displaced fracture of distal phalanx of right little finger, initial encounter for open fracture; E11.22 Type 2 diabetes mellitus with diabetic chronic kidney disease; R65.21 Severe sepsis with septic shock; I50.42 Chronic combined systolic (congestive) and diastolic (congestive) heart failure; X58.XXXA Exposure to other specified factors, initial encounter; L03.115 Cellulitis of right lower limb; B96.1 Klebsiella pneumoniae [K. pneumoniae] as the cause of diseases classified elsewhere; Z79.4 Long term (current) use of insulin; Z95.0 Presence of cardiac pacemaker; R79.89 Other specified abnormal findings of blood chemistry; E03.9 Hypothyroidism, unspecified; N18.6 End stage renal disease; I27.20 Pulmonary hypertension, unspecified; E78.5 Hyperlipidemia, unspecified; I34.0 Nonrheumatic mitral (valve) insufficiency; I25.10 Atherosclerotic heart disease of native coronary artery without angina pectoris; D69.6 Thrombocytopenia, unspecified; I25.5 Ischemic cardiomyopathy; I48.2 Chronic atrial fibrillation; Z79.01 Long term (current) use of anticoagulants; J90 Pleural effusion, not elsewhere classified; Z99.2 Dependence on renal dialysis; A41.9 Sepsis, unspecified organism; Z51.5 Encounter for palliative care; K21.9 Gastro-esophageal reflux disease without esophagitis